=== PATIENT | male | born 1965 | race Caucasian/White ===

== ENCOUNTER 2018-12-15 12:03 | Emergency (ER) | payer OTHER, SELFPAY ==
[~2018-12-15 12:03] MED LIST: ACET1TAB12 PO; ATEN25TA PO; GLYB5TAB5 PO; METF-444 PO
[2018-12-15 12:34] LABS: BASOPHILS % (AUTO) 0.7 % (0.0-5.0); EOSINOPHILS % (AUTO) 0.8 % (0.0-8.0); HEMATOCRIT 39.7 % (42-54); MEAN CORPUSCULAR HEMOGLOBIN 33.9 pg (27.0-33.0); MEAN CORPUSCULAR HGB CONC 35.6 g/dL (32.0-36.0); MEAN CORPUSCULAR VOLUME 95.2 fL (79-99); MONOCYTES % (AUTO) 6.1 % (3.0-13.0); NEUTROPHILS % (AUTO) 60.4 % (40.0-77.0); NUCLEATED RED BLOOD CELLS 0.2 % (0.0-0.19); PLATELET COUNT (AUTO) 155 K/uL (130-400); RED BLOOD CELL COUNT(AUTO) 4.17 MIL/uL (4.50-6.20); RED CELL DISTRIBUTION WIDTH 12.6 % (11.0-15.5); WHITE BLOOD COUNT (AUTO) 6.5 K/uL (4.8-10.8)
[2018-12-15 12:44] LABS: POTASSIUM 3.7 mmol/L (3.5-5.1)
[2018-12-15 12:48] LABS: ALBUMIN 3.5 g/dL (3.5-5.0); BILIRUBIN,DIRECT 0.3 mg/dL (0.0-0.3); BILIRUBIN,TOTAL 1.7 mg/dL (0.2-1.0); TOTAL PROTEIN, SERUM 7.8 g/dL (6.0-8.3)
[2018-12-15 12:59] LABS: APPEARANCE,URINE Clear (CLEAR); BILIRUBIN,URINE Negative (NEGATIVE); COLOR,URINE Yellow (YELLOW); GLUCOSE, URINE (UA) >=1000 mg/dL (NEGATIVE); KETONES,URINE Negative (NEGATIVE); LEUKOCYTE ESTERASE ,URINE Negative (NEGATIVE); NITRATE,URINE Negative (NEGATIVE); OCCULT BLOOD,URINE Negative (NEGATIVE); PROTEIN,URINE Negative (NEGATIVE); UROBILINOGEN,URINE 0.2 mg/dL (0.2-1.0)
[2018-12-15 13:13] LABS: BACTERIA,URINE Rare /HPF (None Seen); RBC,URINE None Seen /HPF (0-1); SQUAMOUS EPITHELIAL CELL,UR Rare /HPF (0-2); WBC,URINE None Seen /HPF (0-1)
[2018-12-15] MEDS ORDERED: ONDANSETRON HCL 4 MG/2 ML VIAL ONE (13:30)
[2018-12-15] MEDS ORDERED: SODIUM CHLORIDE 0.9% 1000ML 1,000 ML IV ONE (13:31)
[2018-12-15] MEDS ORDERED: KETOROLAC TROMETHAMINE 30MG/ML ONE (13:31)
[2018-12-15] MEDS ORDERED: IOHEXOL-350 75 ML VIAL IV ONE (13:33)
== END 2018-12-15 15:50 | disposition home or self-care (01) ==
LOC: EDH 12:03
DX: K46.9 Unspecified abdominal hernia without obstruction or gangrene (principal); R10.12 Left upper quadrant pain; R10.32 Left lower quadrant pain; I10 Essential (primary) hypertension; E11.9 Type 2 diabetes mellitus without complications; Z90.49 Acquired absence of other specified parts of digestive tract
CPT/HCPCS: 36415; 74177; 80048; 80076; 81001; 83690; 85025; 96374; 96375; 99285; J1885; J2405; J7030; Q9967

== ENCOUNTER 2018-12-16 05:43 | Day surgery (SDC) | payer OTHER, SELFPAY ==
[~2018-12-16 05:43] MED LIST changes: +SODIUM CHLORIDE 0.9% 1000ML 1,000 ML IV ONE
[2018-12-16] MEDS ORDERED: PROPOFOL 10 MG/ML 20ML VIAL IV ONE (07:29)
[2018-12-16 07:40] VITALS: BP 98/70
[2018-12-16 07:50] VITALS: BP 121/75
[2018-12-16 08:05] VITALS: BP 124/86
[2018-12-16 08:38] VITALS: BP 95/55
[2018-12-16 08:43] VITALS: BP 99/63
== END 2018-12-16 08:15 | disposition home or self-care (01) ==
LOC: DAH 05:43 → ENDO 05:43
PROVIDERS: ATTEND Internal Medicine Gastroenterology
DX: R10.32 Left lower quadrant pain (principal); K43.2 Incisional hernia without obstruction or gangrene; K94.00 Colostomy complication, unspecified; I10 Essential (primary) hypertension; Z79.899 Other long term (current) drug therapy
CPT/HCPCS: 45378; A4606; J2704; J7030

== ENCOUNTER 2019-02-22 16:51 | Emergency (ER) | payer OTHER ==
[~2019-02-22 16:51] MED LIST changes: -SODIUM CHLORIDE 0.9% 1000ML 1,000 ML IV ONE
[2019-02-22] MEDS ORDERED: KETOROLAC TROMETHAMINE 15MG/ML ONE ×2 (17:23→20:48)
[2019-02-22] MEDS ORDERED: SODIUM CHLORIDE 0.9% 1000ML 1,000 ML IV ONE (17:23)
[2019-02-22] MEDS ORDERED: ONDANSETRON HCL 4 MG/2 ML VIAL ONE (17:23)
[2019-02-22 18:12] LABS: BASOPHILS % (AUTO) 0.7 % (0.0-5.0); EOSINOPHILS % (AUTO) 0.7 % (0.0-8.0); HEMATOCRIT 39.6 % (42-54); MEAN CORPUSCULAR HEMOGLOBIN 34.1 pg (27.0-33.0); MEAN CORPUSCULAR HGB CONC 35.7 g/dL (32.0-36.0); MEAN CORPUSCULAR VOLUME 95.5 fL (79-99); MONOCYTES % (AUTO) 7.2 % (3.0-13.0); NEUTROPHILS % (AUTO) 59.4 % (40.0-77.0); PLATELET COUNT (AUTO) 162 K/uL (130-400); RED BLOOD CELL COUNT(AUTO) 4.15 MIL/uL (4.50-6.20); RED CELL DISTRIBUTION WIDTH 12.4 % (11.0-15.5); WHITE BLOOD COUNT (AUTO) 5.4 K/uL (4.8-10.8)
[2019-02-22 18:23] LABS: INR 0.99 (0.85-1.15); PROTHROMBIN TIME 10.4 SEC (9.6-11.6)
[2019-02-22] MEDS ORDERED: IOHEXOL-350 75 ML VIAL IV ONE (18:23)
[2019-02-22] MEDS ORDERED: DIATR MEGLU/DIATRIZOATE SODIUM 30 ML BOTTLE ONE (18:23)
[2019-02-22 18:28] LABS: ALBUMIN 3.5 g/dL (3.5-5.0); BILIRUBIN,TOTAL 1.3 mg/dL (0.2-1.0); CREATININE 1.2 mg/dL (0.5-1.5); POTASSIUM 3.9 mmol/L (3.5-5.1); TOTAL PROTEIN, SERUM 7.9 g/dL (6.0-8.3)
[2019-02-22 18:36] LABS: APPEARANCE,URINE Clear (CLEAR); BILIRUBIN,URINE Negative (NEGATIVE); COLOR,URINE Yellow (YELLOW); GLUCOSE, URINE (UA) >=1000 mg/dL (NEGATIVE); KETONES,URINE Negative (NEGATIVE); LEUKOCYTE ESTERASE ,URINE Negative (NEGATIVE); NITRATE,URINE Negative (NEGATIVE); OCCULT BLOOD,URINE Negative (NEGATIVE); PROTEIN,URINE Negative (NEGATIVE); UROBILINOGEN,URINE 0.2 mg/dL (0.2-1.0)
[2019-03-20] MEDS ORDERED: ADVIL PO (09:49)
[2019-03-20] MEDS ORDERED: ACETAMINOPHEN PO (09:49)
[2019-03-24] MEDS ORDERED: ACET-66 PO (09:14)
[2019-03-24] MEDS ORDERED: IBUP200C5 PO (09:15)
[2019-03-30] MEDS ORDERED: ACET1TAB12 PO (06:11)
== END 2019-02-22 21:04 | disposition home or self-care (01) ==
LOC: EDH 16:51
DX: K46.9 Unspecified abdominal hernia without obstruction or gangrene (principal); E11.9 Type 2 diabetes mellitus without complications; I10 Essential (primary) hypertension; Z90.49 Acquired absence of other specified parts of digestive tract
CPT/HCPCS: 36415; 71045; 74177; 80053; 81003; 82550; 83690; 84484; 85025; 85610; 85730; 93005; 96374; 96375; 96376; 99285; J1885 ×2; J2405; J7030; Q9963; Q9967

== ENCOUNTER 2023-02-13 11:12 | Inpatient (IN) | payer BC, OTHER ==
[2023-02-13] VITALS (15 sets, daily range): BP systolic 99–136; BP diastolic 55–68; PULSE 89–104; RESP 14–20
[~2023-02-13] VITALS: Ht 182.9 cm; Wt 80.5 kg
[~2023-02-13 11:12] MED LIST changes: +ACET-66 PO; -ACET1TAB12 PO; -ATEN25TA PO; +ATOR10 PO; -GLYB5TAB5 PO; +IBUP200C5 PO; -METF-444 PO; +MUPI22OI2 TP
[2023-02-13 12:19] LABS: BASOPHILS # (AUTO) 0.07 K/uL (0.00-0.20); BASOPHILS % (AUTO) 0.4 % (0.0-5.0); EOSINOPHILS # (AUTO) 0.01 K/uL (0.00-0.70); EOSINOPHILS % (AUTO) 0.1 % (0.0-8.0); HEMATOCRIT 30.2 % (42-54); IMMATURE GRANULOCYTE ABSOLUTE 1.89 K/uL (0-1); LYMPHOCYTES # (AUTO) 1.1 K/uL (1.0-4.8); LYMPHOCYTES % (AUTO) 6.4 % (21.0-51.0); MEAN CORPUSCULAR HEMOGLOBIN 32.3 pg (27.0-33.0); MEAN CORPUSCULAR HGB CONC 36.1 g/dL (32.0-36.0); MEAN CORPUSCULAR VOLUME 89.6 fL (79-99); MONOCYTES # (AUTO) 1.1 K/uL (0.1-1.0); MONOCYTES % (AUTO) 6.2 % (3.0-13.0); NEUTROPHILS # (AUTO) 13.1 K/uL (1.8-7.7); NEUTROPHILS % (AUTO) 75.9 % (40.0-77.0); PLATELET COUNT (AUTO) 214 K/uL (130-400); RED BLOOD CELL COUNT(AUTO) 3.37 MIL/uL (4.50-6.20); WHITE BLOOD COUNT (AUTO) 17.3 K/uL (4.8-10.8)
[2023-02-13] MEDS ORDERED: VANCOMYCIN PROTOCOL PER PHARMACY IV SCH (12:30)
[2023-02-13] MEDS ORDERED: ONDANSETRON 4MG INJ IVP PRN (12:30)
[2023-02-13 12:32] LABS: INR 1.03 (0.85-1.15); PROTHROMBIN TIME 11.9 SEC (9.6-11.6)
[2023-02-13 12:33] LABS: PARTIAL THROMBOPLASTIN TIME 35.1 SEC (26.3-35.5)
[2023-02-13] MEDS: 0.9%NACL 1000ML 1,000 ML IV SCH ×2 (12:38→22:30)
[2023-02-13] MEDS: PANTOPRAZOLE 40 MG/VIAL IVP SCH (12:38)
[2023-02-13] MEDS: CEFEPIME HCL 2 GM VIAL IVPB SCH (12:38)
[2023-02-13 12:39] LABS: SARS-CoV-2, RNA, NAAT NEGATIVE SARS CoV-2 (NEGATIVE)
[2023-02-13 12:41] LABS: ALBUMIN 2.4 g/dL (3.5-5.0); CREATININE 1.3 mg/dL (0.5-1.5); POTASSIUM 3.7 mmol/L (3.5-5.1); TOTAL PROTEIN, SERUM 7.3 g/dL (6.0-8.3)
[2023-02-13 12:48] LABS: THYROID STIMULATING HORMONE 2.07 uIU/mL (0.36-3.74)
[2023-02-13] MEDS ORDERED: VANCOMYCIN 1.75 GM/250 ML BAG 250 ML IV ONE (13:00)
[2023-02-13] MEDS ORDERED: 0.9%NACL 1000ML 2,328 ML IV ONE (13:30)
[2023-02-13] MEDS: INSULIN HUMULIN R 100 UNIT/ML 3ML SQ SCH ×2 (13:57→19:30)
[2023-02-13] MEDS ORDERED: POTASSIUM CHLORIDE 20MEQ/100ML 100 ML IV PRN (14:30)
[2023-02-13] MEDS ORDERED: DIPH,PERTUSS(ACELL),TET VAC/PF 0.5 ML VIAL IM ONE (16:00)
[2023-02-13] MEDS ORDERED: INSULIN HUMULIN R 100 UNIT/ML 3ML SQ SCH (16:30)
[2023-02-13] MEDS: METRONIDAZOLE 500MG/100ML BAG 100 ML IVPB SCH ×2 (16:45→23:16)
[2023-02-13] MEDS ORDERED: MIDAZOLAM HCL 1 MG/ML 2ML VIAL ONE ×4 (20:55→22:08)
[2023-02-13] MEDS ORDERED: FENTANYL CITRATE PF 50 MCG/1 ML 2ML VIAL ONE ×2 (21:10→22:01)
[2023-02-13] MEDS ORDERED: BUPIVACAINE/PF 0.5% 30ML VIAL ONE (21:18)
[2023-02-13] MEDS ORDERED: LIDOCAINE HCL-MPF 2% 10ML AMP IJ ONE ×2 (21:20→21:43)
[2023-02-13] MEDS ORDERED: BUPIVACAINE/PF 0.5% 30ML VIAL INJ ONE (21:43)
[2023-02-14] VITALS (12 sets, daily range): BP systolic 108–139; BP diastolic 52–79; PULSE 94–130; RESP 18–20; TEMP 100.5; O2SAT 95–96
[2023-02-14] MEDS: CEFEPIME HCL 2 GM VIAL IVPB SCH ×2 (00:17→12:33)
[2023-02-14] MEDS: INSULIN HUMULIN R 100 UNIT/ML 3ML SQ SCH ×4 (00:29→20:38)
[2023-02-14] MEDS: HYDROMORPHONE 0.5 MG SYG (0.5MG/0.5ML) IVP PRN ×3 (01:33→16:27)
[2023-02-14] MEDS: 0.9%NACL 1000ML 1,000 ML IV SCH ×2 (02:52→17:37)
[2023-02-14] MEDS: VANCOMYCIN 1G/250ML KIT 250 ML IV SCH ×2 (05:04→17:37)
[2023-02-14] MEDS: ACETAMINOPHEN 500 MG TABLET PO PRN ×2 (05:05→14:41)
[2023-02-14 05:23] LABS: BASOPHILS # (AUTO) 0.09 K/uL (0.00-0.20); BASOPHILS % (AUTO) 0.5 % (0.0-5.0); EOSINOPHILS # (AUTO) 0.04 K/uL (0.00-0.70); EOSINOPHILS % (AUTO) 0.2 % (0.0-8.0); HEMATOCRIT 28.5 % (42-54); IMMATURE GRANULOCYTE ABSOLUTE 2.98 K/uL (0-1); LYMPHOCYTES # (AUTO) 1.7 K/uL (1.0-4.8); LYMPHOCYTES % (AUTO) 8.7 % (21.0-51.0); MEAN CORPUSCULAR HEMOGLOBIN 32.2 pg (27.0-33.0); MEAN CORPUSCULAR HGB CONC 34.4 g/dL (32.0-36.0); MEAN CORPUSCULAR VOLUME 93.8 fL (79-99); MONOCYTES # (AUTO) 1.4 K/uL (0.1-1.0); MONOCYTES % (AUTO) 7.3 % (3.0-13.0); NEUTROPHILS # (AUTO) 13.2 K/uL (1.8-7.7); PLATELET COUNT (AUTO) 238 K/uL (130-400); RED BLOOD CELL COUNT(AUTO) 3.04 MIL/uL (4.50-6.20); RED CELL DISTRIBUTION WIDTH 12.5 % (11.0-15.5); WHITE BLOOD COUNT (AUTO) 19.4 K/uL (4.8-10.8)
[2023-02-14 05:50] LABS: ALBUMIN 1.9 g/dL (3.5-5.0); BILIRUBIN,TOTAL 0.7 mg/dL (0.2-1.0); MAGNESIUM 1.9 mg/dL (1.80-2.40); POTASSIUM 3.8 mmol/L (3.5-5.1); TOTAL PROTEIN, SERUM 6.5 g/dL (6.0-8.3)
[2023-02-14] MEDS: METRONIDAZOLE 500MG/100ML BAG 100 ML IVPB SCH ×3 (06:16→21:08)
[2023-02-14] MEDS: PANTOPRAZOLE 40 MG/VIAL IVP SCH (12:33)
[2023-02-14] MEDS: HYDROCODONE/ACETAMINOPHEN 10/325 MG TAB PO PRN (14:40)
[2023-02-15] MEDS: CEFEPIME HCL 2 GM VIAL IVPB SCH ×2 (00:45→13:24)
[2023-02-15] MEDS: HYDROCODONE/ACETAMINOPHEN 10/325 MG TAB PO PRN ×3 (02:37→18:08)
[2023-02-15 04:00] VITALS: BP 132/68; PULSE 99; RESP 20
[2023-02-15] MEDS: 0.9%NACL 1000ML 1,000 ML IV SCH ×2 (04:30→14:30)
[2023-02-15] MEDS: METRONIDAZOLE 500MG/100ML BAG 100 ML IVPB SCH ×3 (05:21→21:02)
[2023-02-15] MEDS: HYDROCODONE/ACETAMINOPHEN 5/325 MG TAB PO PRN (06:07)
[2023-02-15] MEDS: VANCOMYCIN 1G/250ML KIT 250 ML IV SCH ×2 (06:28→18:51)
[2023-02-15] MEDS: INSULIN HUMULIN R 100 UNIT/ML 3ML SQ SCH ×4 (06:43→21:02)
[2023-02-15 08:00] VITALS: BP 126/73; PULSE 96; RESP 20; O2SAT 98
[2023-02-15 12:00] VITALS: BP 145/85; PULSE 95; RESP 18
[2023-02-15] MEDS: PANTOPRAZOLE 40 MG/VIAL IVP SCH (13:24)
[2023-02-15 16:00] VITALS: BP 151/92; PULSE 114; RESP 18
[2023-02-15 20:00] VITALS: BP 148/82; PULSE 114; RESP 20; O2SAT 98
[2023-02-15] MEDS: HYDROMORPHONE 0.5 MG SYG (0.5MG/0.5ML) IVP PRN (21:03)
[2023-02-15 23:48] VITALS: BP_SYST 85; PULSE 101; RESP 18
[2023-02-16] VITALS (28 sets, daily range): BP systolic 119–149; BP diastolic 66–86; PULSE 70–108; RESP 15–19; O2SAT 98
[2023-02-16] MEDS: 0.9%NACL 1000ML 1,000 ML IV SCH ×3 (00:30→20:30)
[2023-02-16] MEDS: CEFEPIME HCL 2 GM VIAL IVPB SCH ×3 (01:38→23:36)
[2023-02-16 04:19] LABS: BASOPHILS # (AUTO) 0.06 K/uL (0.00-0.20); BASOPHILS % (AUTO) 0.4 % (0.0-5.0); EOSINOPHILS # (AUTO) 0.14 K/uL (0.00-0.70); HEMATOCRIT 26.5 % (42-54); IMMATURE GRANULOCYTE ABSOLUTE 0.15 K/uL (0-1); LYMPHOCYTES # (AUTO) 1.8 K/uL (1.0-4.8); LYMPHOCYTES % (AUTO) 13.5 % (21.0-51.0); MEAN CORPUSCULAR HEMOGLOBIN 31.6 pg (27.0-33.0); MONOCYTES # (AUTO) 1.1 K/uL (0.1-1.0); MONOCYTES % (AUTO) 7.9 % (3.0-13.0); NEUTROPHILS # (AUTO) 10.3 K/uL (1.8-7.7); NEUTROPHILS % (AUTO) 76.1 % (40.0-77.0); PLATELET COUNT (AUTO) 267 K/uL (130-400); RED BLOOD CELL COUNT(AUTO) 2.85 MIL/uL (4.50-6.20); RED CELL DISTRIBUTION WIDTH 12.4 % (11.0-15.5); WHITE BLOOD COUNT (AUTO) 13.6 K/uL (4.8-10.8)
[2023-02-16 04:46] LABS: CREATININE 1.1 mg/dL (0.5-1.5); MAGNESIUM 1.7 mg/dL (1.80-2.40); PHOSPHORUS 2.1 mg/dL (2.5-4.9); POTASSIUM 3.5 mmol/L (3.5-5.1)
[2023-02-16] MEDS: METRONIDAZOLE 500MG/100ML BAG 100 ML IVPB SCH ×3 (05:44→20:26)
[2023-02-16] MEDS: VANCOMYCIN 1G/250ML KIT 250 ML IV SCH ×2 (05:44→16:48)
[2023-02-16] MEDS: INSULIN HUMULIN R 100 UNIT/ML 3ML SQ SCH ×4 (06:36→21:12)
[2023-02-16] MEDS: HYDROMORPHONE 0.5 MG SYG (0.5MG/0.5ML) IVP PRN (07:44)
[2023-02-16] MEDS ORDERED: MORPHINE 2 MG SYG IVP PRN (10:00)
[2023-02-16] MEDS ORDERED: LIDOCAINE HCL 1% 20 ML VIAL ONE (10:11)
[2023-02-16] MEDS ORDERED: BUPIVACAINE/PF 0.25% 30ML VIAL IJ ONE ×2 (10:11→10:34)
[2023-02-16] MEDS ORDERED: MIDAZOLAM HCL 1 MG/ML 2ML VIAL ONE (10:13)
[2023-02-16] MEDS ORDERED: PROPOFOL 10 MG/ML 20ML VIAL IV ONE (10:13)
[2023-02-16] MEDS ORDERED: FENTANYL CITRATE PF 50 MCG/1 ML 2ML VIAL ONE (10:13)
[2023-02-16] MEDS ORDERED: PROPOFOL 1000 MG/100 ML 100 ML IV ONE (10:14)
[2023-02-16] MEDS ORDERED: KETAMINE 50MG/ML SYRINGE 50 MG/ML DISP.SYRIN ONE (10:15)
[2023-02-16] MEDS ORDERED: LIDOCAINE HCL 1% 20 ML VIAL INJ ONE (10:34)
[2023-02-16] MEDS: PANTOPRAZOLE 40 MG/VIAL IVP SCH (13:13)
[2023-02-16] MEDS: HYDROMORPHONE 1 MG INJ IVP PRN ×2 (13:15→16:49)
[2023-02-16] MEDS ORDERED: KETOROLAC 15MG/ML VIAL (15MG/ML) IM PRN (14:00)
[2023-02-16] MEDS: KETOROLAC 15MG/ML VIAL (15MG/ML) IV PRN ×2 (15:26→23:43)
[2023-02-16] MEDS: HYDROCODONE/ACETAMINOPHEN 5/325 MG TAB PO PRN (20:35)
[2023-02-17] VITALS (8 sets, daily range): BP systolic 109–150; BP diastolic 63–80; PULSE 69–109; RESP 16–20; O2SAT 96
[2023-02-17 05:51] LABS: BASOPHILS # (AUTO) 0.07 K/uL (0.00-0.20); BASOPHILS % (AUTO) 0.6 % (0.0-5.0); EOSINOPHILS # (AUTO) 0.15 K/uL (0.00-0.70); EOSINOPHILS % (AUTO) 1.3 % (0.0-8.0); HEMATOCRIT 22.4 % (42-54); IMMATURE GRANULOCYTE ABSOLUTE 0.19 K/uL (0-1); LYMPHOCYTES # (AUTO) 1.3 K/uL (1.0-4.8); LYMPHOCYTES % (AUTO) 11.4 % (21.0-51.0); MEAN CORPUSCULAR HEMOGLOBIN 32.1 pg (27.0-33.0); MEAN CORPUSCULAR HGB CONC 33.9 g/dL (32.0-36.0); MEAN CORPUSCULAR VOLUME 94.5 fL (79-99); MONOCYTES # (AUTO) 0.8 K/uL (0.1-1.0); MONOCYTES % (AUTO) 6.8 % (3.0-13.0); NEUTROPHILS # (AUTO) 9.2 K/uL (1.8-7.7); NEUTROPHILS % (AUTO) 78.3 % (40.0-77.0); NUCLEATED RED BLOOD CELLS 0.2 % (0.0-0.19); PLATELET COUNT (AUTO) 279 K/uL (130-400); RED BLOOD CELL COUNT(AUTO) 2.37 MIL/uL (4.50-6.20); RED CELL DISTRIBUTION WIDTH 12.7 % (11.0-15.5); WHITE BLOOD COUNT (AUTO) 11.8 K/uL (4.8-10.8)
[2023-02-17] MEDS: METRONIDAZOLE 500MG/100ML BAG 100 ML IVPB SCH ×3 (05:53→20:25)
[2023-02-17 06:04] LABS: POTASSIUM 3.7 mmol/L (3.5-5.1); VANCOMYCIN TROUGH 14.1 UG/ML (10.0-20.0)
[2023-02-17] MEDS: VANCOMYCIN 1G/250ML KIT 250 ML IV SCH ×2 (06:15→17:18)
[2023-02-17] MEDS: INSULIN HUMULIN R 100 UNIT/ML 3ML SQ SCH ×4 (06:28→20:36)
[2023-02-17] MEDS: 0.9%NACL 1000ML 1,000 ML IV SCH ×2 (06:30→17:26)
[2023-02-17] MEDS: HYDROCODONE/ACETAMINOPHEN 5/325 MG TAB PO PRN ×3 (10:52→23:19)
[2023-02-17] MEDS: CEFEPIME HCL 2 GM VIAL IVPB SCH ×2 (12:31→23:18)
[2023-02-17] MEDS: PANTOPRAZOLE 40 MG/VIAL IVP SCH (12:31)
[2023-02-17] MEDS: INSULIN GLARGINE 100 UNITS/ML 10 ML VIAL SQ SCH (20:53)
[2023-02-18] VITALS (8 sets, daily range): BP systolic 126–153; BP diastolic 74–89; PULSE 95–111; RESP 18–19; O2SAT 95–99
[2023-02-18] MEDS: 0.9%NACL 1000ML 1,000 ML IV SCH (02:30)
[2023-02-18 04:34] LABS: CREATININE 1.1 mg/dL (0.5-1.5); POTASSIUM 3.6 mmol/L (3.5-5.1)
[2023-02-18 04:56] LABS: BASOPHILS # (AUTO) 0.04 K/uL (0.00-0.20); BASOPHILS % (AUTO) 0.4 % (0.0-5.0); EOSINOPHILS # (AUTO) 0.14 K/uL (0.00-0.70); EOSINOPHILS % (AUTO) 1.6 % (0.0-8.0); HEMATOCRIT 21.1 % (42-54); IMMATURE GRANULOCYTE ABSOLUTE 0.15 K/uL (0-1); LYMPHOCYTES # (AUTO) 1.6 K/uL (1.0-4.8); LYMPHOCYTES % (AUTO) 17.4 % (21.0-51.0); MEAN CORPUSCULAR HEMOGLOBIN 32.7 pg (27.0-33.0); MEAN CORPUSCULAR HGB CONC 34.6 g/dL (32.0-36.0); MEAN CORPUSCULAR VOLUME 94.6 fL (79-99); MONOCYTES # (AUTO) 0.7 K/uL (0.1-1.0); MONOCYTES % (AUTO) 7.9 % (3.0-13.0); NEUTROPHILS # (AUTO) 6.4 K/uL (1.8-7.7); PLATELET COUNT (AUTO) 287 K/uL (130-400); RED BLOOD CELL COUNT(AUTO) 2.23 MIL/uL (4.50-6.20); RED CELL DISTRIBUTION WIDTH 12.8 % (11.0-15.5)
[2023-02-18] MEDS: METRONIDAZOLE 500MG/100ML BAG 100 ML IVPB SCH ×3 (05:39→22:58)
[2023-02-18] MEDS: HYDROCODONE/ACETAMINOPHEN 5/325 MG TAB PO PRN ×2 (05:39→15:24)
[2023-02-18] MEDS: VANCOMYCIN 1G/250ML KIT 250 ML IV SCH ×2 (05:40→18:21)
[2023-02-18] MEDS: INSULIN HUMULIN R 100 UNIT/ML 3ML SQ SCH ×4 (06:49→20:49)
[2023-02-18] MEDS: KETOROLAC 15MG/ML VIAL (15MG/ML) IV PRN (10:33)
[2023-02-18] MEDS: PANTOPRAZOLE 40 MG/VIAL IVP SCH (11:50)
[2023-02-18] MEDS: CEFEPIME HCL 2 GM VIAL IVPB SCH (11:50)
[2023-02-18] MEDS ORDERED: IOHEXOL-350 50ML VIAL IV ONE (18:49)
[2023-02-18] MEDS ORDERED: IOHEXOL 350 MG/ML 100ML INFUS..BTL IV ONE (18:49)
[2023-02-18] MEDS: INSULIN GLARGINE 100 UNITS/ML 10 ML VIAL SQ SCH (20:50)
[2023-02-19] VITALS (8 sets, daily range): BP systolic 133–155; BP diastolic 65–94; PULSE 90–120; RESP 16–20; O2SAT 96–100
[2023-02-19] MEDS: CEFEPIME HCL 2 GM VIAL IVPB SCH ×2 (00:57→12:11)
[2023-02-19] MEDS: METRONIDAZOLE 500MG/100ML BAG 100 ML IVPB SCH ×3 (06:14→21:55)
[2023-02-19] MEDS: VANCOMYCIN 1G/250ML KIT 250 ML IV SCH ×3 (06:14→22:01)
[2023-02-19] MEDS: INSULIN HUMULIN R 100 UNIT/ML 3ML SQ SCH ×4 (06:26→21:53)
[2023-02-19] MEDS: HYDROMORPHONE 1 MG INJ IVP PRN ×3 (09:16→17:14)
[2023-02-19] MEDS: HYDROCODONE/ACETAMINOPHEN 5/325 MG TAB PO PRN (12:12)
[2023-02-19] MEDS: PANTOPRAZOLE 40 MG/VIAL IVP SCH (12:30)
[2023-02-19 19:41] LABS: INR 1.11 (0.85-1.15); PROTHROMBIN TIME 12.8 SEC (9.6-11.6)
[2023-02-19 19:42] LABS: PARTIAL THROMBOPLASTIN TIME 33.5 SEC (26.3-35.5)
[2023-02-19] MEDS: INSULIN GLARGINE 100 UNITS/ML 10 ML VIAL SQ SCH (21:54)
[2023-02-20 00:07] VITALS: BP 143/86; PULSE 102; RESP 18
[2023-02-20] MEDS: CEFEPIME HCL 2 GM VIAL IVPB SCH ×2 (00:54→12:29)
[2023-02-20] MEDS: HYDROMORPHONE 1 MG INJ IVP PRN (01:48)
[2023-02-20 04:17] VITALS: BP 129/76; PULSE 74; RESP 18
[2023-02-20] MEDS: METRONIDAZOLE 500MG/100ML BAG 100 ML IVPB SCH (06:08)
[2023-02-20] MEDS: INSULIN HUMULIN R 100 UNIT/ML 3ML SQ SCH ×2 (06:09→12:33)
[2023-02-20 06:26] LABS: INR 1.12 (0.85-1.15); PROTHROMBIN TIME 12.9 SEC (9.6-11.6)
[2023-02-20 06:27] LABS: PARTIAL THROMBOPLASTIN TIME 33.1 SEC (26.3-35.5)
[2023-02-20 08:00] VITALS: BP 142/82; PULSE 94; RESP 16; O2SAT 98
[2023-02-20] MEDS: KETOROLAC 15MG/ML VIAL (15MG/ML) IV PRN (08:18)
[2023-02-20] MEDS: VANCOMYCIN 1G/250ML KIT 250 ML IV SCH (09:39)
[2023-02-20] MEDS ORDERED: LACTULOSE 20 GM/30 ML UDCUP PO ONE (10:00)
[2023-02-20 12:00] VITALS: BP 158/104; PULSE 98; RESP 16
[2023-02-20] MEDS: PANTOPRAZOLE 40 MG/VIAL IVP SCH (12:30)
[2023-02-20] MEDS ORDERED: VANCOMYCIN 1G/250ML KIT 250 ML IV SCH (13:00)
== END 2023-02-20 16:17 | DRG 853 ==
LOC: EDH 11:12 → EDHIP 11:13 → UNDOADMIN 11:44 → EDHIP 11:44 → 4AH 22:03 → EDHIP 22:03
PROVIDERS: ADMIT Internal Medicine; ATTEND Internal Medicine
PROC: 0Y6M0ZC Detachment at Right Foot, Partial 3rd Ray, Open Approach (ICD-10-PCS; 2023-02-13)
PROC: 0Y6M0ZD Detachment at Right Foot, Partial 4th Ray, Open Approach (ICD-10-PCS; 2023-02-13)
PROC: 0Y6M0ZF Detachment at Right Foot, Partial 5th Ray, Open Approach (ICD-10-PCS; 2023-02-13)
PROC: 0Y6M0Z9 Detachment at Right Foot, Partial 1st Ray, Open Approach (ICD-10-PCS; principal; 2023-02-13 21:07)
PROC: 0Y6M0ZB Detachment at Right Foot, Partial 2nd Ray, Open Approach (ICD-10-PCS; 2023-02-13 21:07)
PROC: 0Y6M0Z0 Detachment at Right Foot, Complete, Open Approach (ICD-10-PCS; 2023-02-16)
PROC: 02HV33Z Insertion of Infusion Device into Superior Vena Cava, Percutaneous Approach (ICD-10-PCS; 2023-02-19)
DX: A41.9 Sepsis, unspecified organism (principal); A48.0 Gas gangrene; L03.115 Cellulitis of right lower limb; E87.1 Hypo-osmolality and hyponatremia; E11.52 Type 2 diabetes mellitus with diabetic peripheral angiopathy with gangrene; M86.171 Other acute osteomyelitis, right ankle and foot; D64.9 Anemia, unspecified; E87.6 Hypokalemia; E11.621 Type 2 diabetes mellitus with foot ulcer; L97.521 Non-pressure chronic ulcer of other part of left foot limited to breakdown of skin; E11.42 Type 2 diabetes mellitus with diabetic polyneuropathy; E11.69 Type 2 diabetes mellitus with other specified complication; Z20.822 Contact with and (suspected) exposure to COVID-19; E11.622 Type 2 diabetes mellitus with other skin ulcer; E11.65 Type 2 diabetes mellitus with hyperglycemia; E66.9 Obesity, unspecified; E78.5 Hyperlipidemia, unspecified; G89.18 Other acute postprocedural pain; I10 Essential (primary) hypertension; Z83.3 Family history of diabetes mellitus; Z86.73 Personal history of transient ischemic attack (TIA), and cerebral infarction without residual deficits; Z91.199 Patient's noncompliance with other medical treatment and regimen due to unspecified reason; Z93.3 Colostomy status; Z79.84 Long term (current) use of oral hypoglycemic drugs; Z68.24 Body mass index [BMI] 24.0-24.9, adult
CPT/HCPCS: 36415; 36569; 71045; 73630; 73706; 73718; 80048; 80053; 80202; 82010; 82550; 82948; 83605; 83735; 84100; 84145; 84443; 85025; 85610; 85651; 85730; 86140; 87040; 87070; 87076; 87077; 87186; 87205; 87635; 88304; 88305; 88311; 90715; 93005; 93926; 97039; C1894; C9113; G0378; J0692; J1170; J1815; J1885; J2250; J2704; J3010; J3370; J3480; J3490; J7030; Q9967; A4649; A6446; C1729

== ENCOUNTER 2023-09-26 03:11 | Emergency (ER) | payer BC ==
[~2023-09-26 03:11] MED LIST changes: -ACET-66 PO; +AEC81 PO; -ATOR10 PO; +ATOR40TA69 PO; +DOXY100T2 PO; +GLIM4TAB36 PO; +HONE44PA TP; -IBUP200C5 PO; +INSU100I24 SQ; +MECL-302 PO; +METF-444 PO; +METO25 PO; -MUPI22OI2 TP; +NITR0.4T50 SL; +Nitroglycerin 0.4MG Sl Tab SL; +OMEP40CA21 PO; +SULF1TAB89 PO; +TICA90TA PO; +[UNRECOGNIZED DRUG - CODE] PO
[2023-09-26 03:56] LABS: BASOPHILS # (AUTO) 0.05 K/uL (0.00-0.20); BASOPHILS % (AUTO) 0.7 % (0.0-5.0); EOSINOPHILS # (AUTO) 0.11 K/uL (0.00-0.70); EOSINOPHILS % (AUTO) 1.6 % (0.0-8.0); HEMATOCRIT 34.1 % (42-54); IMMATURE GRANULOCYTE ABSOLUTE 0.03 K/uL (0-1); LYMPHOCYTES # (AUTO) 1.8 K/uL (1.0-4.8); LYMPHOCYTES % (AUTO) 25.9 % (21.0-51.0); MEAN CORPUSCULAR HEMOGLOBIN 31.8 pg (27.0-33.0); MEAN CORPUSCULAR HGB CONC 35.5 g/dL (32.0-36.0); MEAN CORPUSCULAR VOLUME 89.7 fL (79-99); MONOCYTES # (AUTO) 0.6 K/uL (0.1-1.0); MONOCYTES % (AUTO) 8.8 % (3.0-13.0); NEUTROPHILS # (AUTO) 4.2 K/uL (1.8-7.7); NEUTROPHILS % (AUTO) 62.6 % (40.0-77.0); PLATELET COUNT (AUTO) 215 K/uL (130-400); RED CELL DISTRIBUTION WIDTH 11.9 % (11.0-15.5); WHITE BLOOD COUNT (AUTO) 6.8 K/uL (4.8-10.8)
[2023-09-26 04:00] LABS: CARBON DIOXIDE 25 mmol/L (21-32); CHLORIDE 107 mmol/L (101-111); CREATININE 1.1 mg/dL (0.5-1.3); GLOMERULAR FILTR. RATE CALC 79 mL/min (>90); GLUCOSE,RANDOM 102 mg/dL (70-105); POTASSIUM 3.8 mmol/L (3.5-5.1); SODIUM SERUM 142 mmol/L (136-145); UREA NITROGEN, BLOOD 17 mg/dL (7-18)
[2023-09-26 04:02] LABS: INR 0.97 (0.85-1.15); PROTHROMBIN TIME 11.5 SEC (9.6-11.6)
[2023-09-26 04:03] LABS: ALCOHOL, BLOOD 38 mg/dL (0-10); PARTIAL THROMBOPLASTIN TIME 26.2 SEC (26.3-35.5)
[2023-09-26 04:16] LABS: ACETAMINOPHEN < 1 mcg/mL (10-29); SALICYLATE < 2.8 mg/dL (2.8-20.0)
[2023-09-26] MEDS: 0.9% NACL 500ML IV.SOLN 500 ML IV ONE ×2 (09:10→11:31)
[2023-09-26] MEDS: METOPROLOL TARTRATE 25 MG TAB PO ONE (09:11)
[2023-09-26 10:47] LABS: APPEARANCE,URINE CLEAR (CLEAR); BILIRUBIN,URINE NEGATIVE (NEGATIVE); COLOR,URINE LIGHT-YELLOW (YELLOW); GLUCOSE, URINE (UA) 150 mg/dL (NEGATIVE); KETONES,URINE NEGATIVE (NEGATIVE); LEUKOCYTE ESTERASE ,URINE NEGATIVE Leu/uL (NEGATIVE); NITRATE,URINE NEGATIVE (NEGATIVE); PH,URINE 5.5 (5.0-8.0); PROTEIN,URINE 30 mg/dL (NEGATIVE); UROBILINOGEN,URINE 0.2 mg/dL (0.2-1.0)
[2023-09-26 10:52] LABS: AMPHET/METH SCREEN,URINE NEGATIVE (NEGATIVE); BARBITURATE SCREEN, URINE POSITIVE (NEGATIVE); BENZODIAZEPINES SCREEN,URINE NEGATIVE (NEGATIVE); CANNABINOID SCREEN,URINE NEGATIVE (NEGATIVE); COCAINE SCREEN,URINE NEGATIVE (NEGATIVE); OPIATE SCREEN,URINE NEGATIVE (NEGATIVE); PHENCYCLIDINE SCREEN,URINE NEGATIVE (NEGATIVE)
[2023-09-26 11:08] LABS: ADD UA MICROSCOPIC YES
[2023-09-26 11:24] LABS: RBC,URINE 0-1 /HPF (0-1)
[2023-09-26] MEDS: LORAZEPAM 1 MG TABLET PO ONE (11:31)
[2023-09-26 13:55] VITALS: BP 151/90; PULSE 84; RESP 18; O2SAT 95
== END 2023-09-26 14:16 | disposition home or self-care (01) ==
LOC: EDH 03:11
DX: S51.812A Laceration without foreign body of left forearm, initial encounter (principal); R45.851 Suicidal ideations; E10.9 Type 1 diabetes mellitus without complications; Z79.84 Long term (current) use of oral hypoglycemic drugs; Z79.899 Other long term (current) drug therapy; Z98.890 Other specified postprocedural states; X78.1XXA Intentional self-harm by knife, initial encounter; Y93.89 Activity, other specified; Y92.89 Other specified places as the place of occurrence of the external cause; Y99.8 Other external cause status
CPT/HCPCS: 99284; 96360; 80048; 80305; 85025; 85610; 85730; 36415; 73090; 93005; 81001; G0481; J7040 ×2

== ENCOUNTER 2023-11-08 20:23 | Emergency (ER) | payer BC ==
[~2023-11-08] VITALS: Ht 182.9 cm; Wt 83.0 kg
[2023-11-08 20:48] LABS: BASOPHILS # (AUTO) 0.02 K/uL (0.00-0.20); BASOPHILS % (AUTO) 0.2 % (0.0-5.0); EOSINOPHILS # (AUTO) 0.05 K/uL (0.00-0.70); EOSINOPHILS % (AUTO) 0.5 % (0.0-8.0); IMMATURE GRANULOCYTE ABSOLUTE 0.04 K/uL (0-1); LYMPHOCYTES # (AUTO) 1.4 K/uL (1.0-4.8); LYMPHOCYTES % (AUTO) 13.1 % (21.0-51.0); MEAN CORPUSCULAR HGB CONC 36.5 g/dL (32.0-36.0); MEAN CORPUSCULAR VOLUME 87.8 fL (79-99); MONOCYTES # (AUTO) 0.8 K/uL (0.1-1.0); MONOCYTES % (AUTO) 7.4 % (3.0-13.0); NEUTROPHILS # (AUTO) 8.3 K/uL (1.8-7.7); NEUTROPHILS % (AUTO) 78.4 % (40.0-77.0); PLATELET COUNT (AUTO) 174 K/uL (130-400); RED BLOOD CELL COUNT(AUTO) 3.53 MIL/uL (4.50-6.20); RED CELL DISTRIBUTION WIDTH 12.2 % (11.0-15.5); WHITE BLOOD COUNT (AUTO) 10.6 K/uL (4.8-10.8)
[2023-11-08 20:54] LABS: CREATININE 2.2 mg/dL (0.5-1.3); POTASSIUM 4.5 mmol/L (3.5-5.1)
[2023-11-08 20:57] LABS: INR 1.11 (0.85-1.15); PROTHROMBIN TIME 11.9 SEC (9.6-11.6)
[2023-11-08 20:58] LABS: PARTIAL THROMBOPLASTIN TIME 27.4 SEC (26.3-35.5)
[2023-11-08 20:59] LABS: MAGNESIUM 1.4 mg/dL (1.80-2.40)
[2023-11-08] MEDS: LACTATED RINGERS 1000ML 1,000 ML IV ONE ×2 (21:05)
[2023-11-08 21:11] LABS: B-TYPE NATRIURETIC PEPTIDE 31 pg/mL (0-100)
[2023-11-08 22:59] VITALS: BP 110/68; PULSE 91; RESP 18; O2SAT 0
[2023-11-08] MEDS: MAGNESIUM CHLORIDE 64 MG TABLET.SA PO SCH (23:27)
[2023-11-08] MEDS: MAGNESIUM OXIDE 400 MG TABLET PO ONE ×2 (23:27→23:36)
== END 2023-11-08 23:36 | disposition home or self-care (01) ==
LOC: EDH 20:23
DX: E86.0 Dehydration (principal); E83.42 Hypomagnesemia; E11.9 Type 2 diabetes mellitus without complications; Z79.02 Long term (current) use of antithrombotics/antiplatelets; Z79.82 Long term (current) use of aspirin; Z79.84 Long term (current) use of oral hypoglycemic drugs; Z79.899 Other long term (current) drug therapy; Z86.73 Personal history of transient ischemic attack (TIA), and cerebral infarction without residual deficits
CPT/HCPCS: 99283; 96360; 82550; 83735; 80048; 83880; 85025; 85610; 85730; 36415; J7120; 96361

== ENCOUNTER 2023-11-14 13:39 | Emergency (ER) | payer BC ==
[~2023-11-14] VITALS: Ht 182.9 cm; Wt 84.4 kg
[~2023-11-14 13:39] MED LIST changes: -DOXY100T2 PO; -HONE44PA TP; -MECL-302 PO
[2023-11-14 13:51] VITALS: BP 106/60; PULSE 103; RESP 17; O2SAT 98
[2023-11-14 14:11] LABS: BASOPHILS # (AUTO) 0.04 K/uL (0.00-0.20); BASOPHILS % (AUTO) 0.6 % (0.0-5.0); EOSINOPHILS # (AUTO) 0.18 K/uL (0.00-0.70); EOSINOPHILS % (AUTO) 2.6 % (0.0-8.0); IMMATURE GRANULOCYTE ABSOLUTE 0.03 K/uL (0-1); LYMPHOCYTES # (AUTO) 1.6 K/uL (1.0-4.8); LYMPHOCYTES % (AUTO) 23.4 % (21.0-51.0); MEAN CORPUSCULAR HEMOGLOBIN 32.1 pg (27.0-33.0); MEAN CORPUSCULAR HGB CONC 35.7 g/dL (32.0-36.0); MEAN CORPUSCULAR VOLUME 89.7 fL (79-99); MONOCYTES # (AUTO) 0.5 K/uL (0.1-1.0); MONOCYTES % (AUTO) 7.8 % (3.0-13.0); NEUTROPHILS # (AUTO) 4.5 K/uL (1.8-7.7); NEUTROPHILS % (AUTO) 65.2 % (40.0-77.0); PLATELET COUNT (AUTO) 200 K/uL (130-400); RED BLOOD CELL COUNT(AUTO) 3.12 MIL/uL (4.50-6.20); RED CELL DISTRIBUTION WIDTH 12.2 % (11.0-15.5); WHITE BLOOD COUNT (AUTO) 6.9 K/uL (4.8-10.8)
[2023-11-14 14:20] LABS: POTASSIUM 3.7 mmol/L (3.5-5.1)
[2023-11-14 14:26] LABS: BILIRUBIN,TOTAL 0.6 mg/dL (0.2-1.0); TOTAL PROTEIN, SERUM 7.2 g/dL (6.0-8.3)
== END 2023-11-14 15:53 | disposition left against medical advice (07) ==
LOC: EDH 13:39
DX: R53.83 Other fatigue (principal); Z53.21 Procedure and treatment not carried out due to patient leaving prior to being seen by health care provider
CPT/HCPCS: 36415; 80053; 85025; 93005

== ENCOUNTER 2023-11-25 12:12 | Emergency (ER) | payer BC ==
[~2023-11-25] VITALS: Ht 182.9 cm; Wt 85.3 kg
[2023-11-25 12:14] VITALS: BP 114/66; PULSE 94; RESP 16
== END 2023-11-25 16:08 | disposition left against medical advice (07) ==
LOC: EDH 12:12
DX: R42 Dizziness and giddiness (principal); R53.1 Weakness; E11.9 Type 2 diabetes mellitus without complications; E78.00 Pure hypercholesterolemia, unspecified; I10 Essential (primary) hypertension; Z79.82 Long term (current) use of aspirin; Z79.899 Other long term (current) drug therapy; Z98.890 Other specified postprocedural states
CPT/HCPCS: 93005

== ENCOUNTER 2024-04-08 16:15 | Emergency (ER) | payer BC ==
[~2024-04-08] VITALS: Ht 182.9 cm; Wt 83.9 kg
--- NOTE | 2024-04-08 17:43 | ERN ---
ED Note History of Present Illness Stated Complaint: RT LEG SWOLLEN ,EXTREMELY RED Chief Complaint: Lower Extremity Pain/Injury Time Seen by MD: 16:50 Dictation: PATIENT IS A 59-YEAR-OLD MALE COMING IN TODAY WITH ERYTHEMA SWELLING TENDERNESS TO THE RIGHT CALF AND LEG ONSET FOR 2-3 DAYS. ADDITIONALLY HAS FOUL-SMELLING RIGHT FOOT STUMP STATUS POST AN AMPUTATION SEVERAL MONTHS AGO BY OF PODIATRY. NO FEVER NO CHILLS IS UNSURE ABOUT IT WHAT HIS BLOOD SUGAR RUNNING. HAS NOT BEEN TO SEE HIS PRIMARY CARE DOCTOR. Allergies: Coded Allergies: No Known Allergies (Verified Allergy, Severe, 02/17/15) Home Meds Active Scripts Metformin HCl (Metformin HCl) 1,000 Mg Tablet, 1000 MG PO BID, #60 TAB HALF A TABLET TWICE A DAY WITH MEALS Prov:DILLON MARTINEZ NP 04/08/24 Insulin NPL/Insulin Lispro (Humalog Mix 75/25) 100 Unit/Ml (75-25) Inj, 10 UNITS SQ DAILY, #1 VIAL 0 Refills Prov:DILLON MARTINEZ NP 04/08/24 Clindamycin HCl (Clindamycin HCl) 300 Mg Capsule, 1 CAP PO QID for 10 Days, #40 CAP 0 Refills Prov:DILLON MARTINEZ NP 04/08/24 Aspirin (ASPIRIN 81 MG ECTAB) 81 Mg Ectab, 81 MG PO DAILY for 30 Days, #30 TAB.EC 2 Refills Prov:JANNET BLAKELY MD 05/30/23 Nitroglycerin (Nitroglycerin) 0.4 Mg Tab.subl, 0.4 MG SL [id number] PRN for chest pain, #30 TAB.SL 2 Refills Prov:JANNET BLAKELY MD 05/30/23 Ticagrelor (Brilinta) 90 Mg Tablet, 90 MG PO BID for 30 Days, #60 TAB 2 Refills Prov:JANNET BLAKELY MD 05/30/23 [Nitroglycerin 0.4MG Sl Tab] 0.4 MG TAB.SUBL No Conflict Check, 0.4 MG SL AD PRN for CHEST PAIN for 30 Days, #30 2 Refills Prov:JANNET BLAKELY MD 05/30/23 Metoprolol Tartrate (Lopressor) 25 Mg Tab, 12.5 MG PO BID for 30 Days, #60 TAB 2 Refills Prov:JANNET BLAKELY MD 05/30/23 Atorvastatin Calcium (LIPITOR) 40 Mg Tablet, 40 MG PO HS for 30 Days, #30 TAB 2 Refills Prov:JANNET BLAKELY MD 05/30/23 Reported Medications Glimepiride (Glimepiride) 4 Mg Tablet, 1 TAB PO DAILY 05/25/23 Metaxalone (Metaxalone) 400 Mg Tablet, 1 TAB PO DAILY 05/25/23 Sulfamethoxazole/Trimethoprim (Sulfamethoxazole-Tmp Ss Tablet) 400 Mg-80 Mg Tablet, 2 TAB PO BID 05/25/23 Insulin Degludec (Tresiba Flextouch U-100) 100 Unit/Ml (3 Ml) Insuln.pen, 15 UNITS SQ ACBKFST 05/25/23 Omeprazole (Omeprazole) 40 Mg Capsule.dr, 1 CAP PO DAILY 04/02/23 Metformin HCl (Metformin HCl) 500 Mg Tablet, 1 TAB PO BID 04/02/23 Past Medical History Past Medical History: Diabetes-Type II, Hypertension Surgical History: None Surgical History Other: L FOOT PARTIAL AMPUTATION Family History: DM, HTN Social History: ETOH RN Note Reviewed/Agreed w/PFSH: Yes Review of System Dictation CONSTITUTIONAL: NEGATIVE EXCEPT FOR HPI HEAD/FACE: NEGATIVE EXCEPT FOR HPI EENT: NEGATIVE EXCEPT FOR HPI RESPIRATORY: NEGATIVE EXCEPT FOR HPI GASTROINTESTINAL/ABDOMINAL: NEGATIVE EXCEPT FOR HPI GENITOURINARY: NEGATIVE EXCEPT FOR HPI MUSCULOSKELETAL: NEGATIVE EXCEPT FOR HPI RIGHT CALF SWELLING TENDERNESS ERYTHEMA INTEGUMENTARY: NEGATIVE EXCEPT FOR HPI NEUROLOGICAL/PSYCH: NEGATIVE EXCEPT FOR HPI HEMATOLOGIC/LYMPHATIC: NEGATIVE EXCEPT FOR HPI ALL SYSTEMS NEGATIVE, EXCEPT NOTED ABOVE. 13 POINT REVIEW OF SYSTEMS ASSESSED AND ALL NEGATIVE EXCEPT FOR ABOVE. Initial Vital Sign VS Vital Signs Date Time Temp Pulse Resp B/P (MAP) Pulse Ox O2 Delivery O2 Flow Rate FiO2 04/08/24 17:12 99.5 97 18 153/92 98 04/08/24 18:10 Room Air* 0 21 Physical Exam Dictation VITAL SIGNS REVIEWED GENERAL APPEARANCE: ALERT, ORIENTED X 3, MILD ACUTE DISTRESS, WELL DEVELOPED, NOURISHED. HEAD AND FACE: NON-TRAUMATIC. EYES: PERRL, PINK CONJUNCTIVAS, EYELID NO TRAUMA, ANTERIOR CHAMBER WITH ARCUS SENILIS. EARS: PINNAS INTACT AND NO SIGNS OF TRAUMA OR ERYTHEMA EAR CANALS CLEAR AND NO DISCHARGE TM NO ERYTHEMA NOSE: NO DISCHARGE, NO BLEEDING. OROPHARYNX: MOUTH NORMAL, TONGUE PINK, PHARYNX CLEAR,NO ERYTHEMA, TONSILS NO EXUDATES, NO ABSCESSES NOTED, MUCOUS MEMBRANE MOIST NECK: SUPPLE, NON-TENDER, NO THYROMEGALY, NO MASSES, NO JVD, NO BRUITS BREAST:DEFERRED CHEST:NO TENDERNESS, NO CREPITUS, NO PARADOXICAL MOVEMENT, NO RETRACTIONS LUNGS:CLEAR, WELL-VENTILATED, SYMMETRIC, NO RALES, NO WHEEZING, NO RHONCHI, NO STRIDOR, GOOD BREATH SOUNDS BILATERALLY HEART: REGULAR RATE, REGULAR RHYTHM, NO MURMUR, NO GALLOPS VASCULAR: NO PERIPHERAL EDEMA, ABDOMEN: SOFT, POSITIVE BOWEL SOUNDS, NONDISTENDED, NO GUARDING, NONTENDER, NO REBOUND, NO MASSES NO HEPATOMEGALY, NO SPLENOMEGALY, NO BUCKLEY'S SIGN, NO HERNIAS. RECTAL: DEFERRED GENITAL: DEFERRED NEUROLOGICAL: NORMAL SPEECH, MOTOR FUNCTION INTACT, SENSORY FUNCTION INTACT MUSCULOSKELETAL: NECK NONTENDER, FULL RANGE OF MOTION, BACK NONTENDER, FULL RANGE OF MOTION, EXTREMITIES: NONTENDER, FULL RANGE OF MOTION SKIN: COLOR PINK, DRY, NO TURGOR, NO RASH, NO LACERATIONS, NO ABRASIONS, NO CONTUSIONS. LYMPHATIC: DEFERRED Results (Laboratory/Radiology) Laboratory/Radiology Laboratory Tests Test 04/08/24 18:00 04/08/24 20:55 04/08/24 21:30 White Blood Count 5.6 K/uL (4.8-10.8) Red Blood Count 3.48 MIL/uL (4.50-6.20) L Hemoglobin 11.0 g/dL (14.0-18.0) L Hematocrit 32.6 % (42-54) L Mean Corpuscular Volume 93.7 fL (79-99) Mean Corpuscular Hemoglobin 31.6 pg (27.0-33.0) Mean Corpuscular Hemoglobin Concent 33.7 g/dL (32.0-36.0) Red Cell Distribution Width 12.1 % (11.0-15.5) Platelet Count 240 K/uL (130-400) Mean Platelet Volume 10.1 fL (7.5-10.5) Immature Granulocyte % (Auto) 0.5 % (0-1) Neutrophils (%) (Auto) 70.7 % (40.0-77.0) Lymphocytes (%) (Auto) 21.4 % (21.0-51.0) Monocytes (%) (Auto) 6.3 % (3.0-13.0) Eosinophils (%) (Auto) 0.9 % (0.0-8.0) Basophils (%) (Auto) 0.2 % (0.0-5.0) Neutrophils # (Auto) 4.0 K/uL (1.8-7.7) Lymphocytes # (Auto) 1.2 K/uL (1.0-4.8) Monocytes # (Auto) 0.4 K/uL (0.1-1.0) Eosinophils # (Auto) 0.05 K/uL (0.00-0.70) Basophils # (Auto) 0.01 K/uL (0.00-0.20) Absolute Immature Granulocyte (auto 0.03 K/uL (0-1) Nucleated Red Blood Cells 0.0 % (0.0-0.19) Sodium Level 133 mmol/L (136-145) L Potassium Level 3.9 mmol/L (3.5-5.1) Chloride Level 98 mmol/L (101-111) L Carbon Dioxide Level 32 mmol/L (21-32) Blood Urea Nitrogen 15 mg/dL (7-18) Creatinine 1.1 mg/dL (0.5-1.3) Glomerular Filtration Rate Calc 78 mL/min (>90) Random Glucose 433 mg/dL (70-105) *H Lactic Acid Level 1.1 mmol/L (0.8-2.5) Total Calcium 8.8 mg/dL (8.5-10.1) Whole Blood Glucose 285 MG/DL (70-110) H 278 MG/DL (70-110) H Labs Reviewed?: Yes ED Course ED Course Orders Procedure Category Date Status Time Foot Comp 3+Vws Rt RAD 04/08/24 Resulted 17:33 Blood Cult FLOR 04/08/24 In Process 17:33 Lactic Acid LAB 04/08/24 Complete 17:33 Cbc With Differential LAB 04/08/24 Complete 17:33 0.9%Nacl 1000ml (Ns PHA 04/08/24 Complete 1000ml) 18:00 Basic Metabolic Panel LAB 04/08/24 Complete 17:33 Us Venous Doppler US 04/08/24 Resulted Unilateral 17:33 Insulin Regular, PHA 04/08/24 Complete Human 3ml (Humulin R 19:00 0.9%Nacl 1000ml (Ns PHA 04/08/24 Complete 1000ml) 19:00 Clindamycin 150mg Cap PHA 04/08/24 Complete (Cleocin 150mg Cap 20:30 Bedside Glucose CPOE 04/08/24 Transmitted Fingerstick 20:43 Insulin Regular, PHA 04/08/24 Complete Human 3ml (Humulin R 21:00 Current Medications Medications (Trade) Dose Ordered Sig/Jl Route PRN Reason Start Time Stop Time Status Last Admin Dose Admin Clindamycin HCl (Cleocin 150mg Cap) 600 mg ONCE ONCE PO 04/08/24 20:30 04/08/24 20:31 DC 04/08/24 20:24 Insulin Human Regular (humuLIN R 100 UNIT/ML 3ML) 5 unit ONCE ONCE SQ 04/08/24 21:00 04/08/24 21:01 DC 04/08/24 21:02 Insulin Human Regular (humuLIN R 100 UNIT/ML 3ML) 15 unit ONCE IV 04/08/24 19:00 04/08/24 22:42 DC Sodium Chloride 1,000 ml @ 0 mls/hr ONCE IV 04/08/24 19:00 04/08/24 22:42 DC 04/08/24 19:19 Sodium Chloride 1,000 ml @ 0 mls/hr ONCE ONCE IV 04/08/24 18:00 04/08/24 18:01 DC 04/08/24 18:16 Vital Signs Date Time Temp Pulse Resp B/P (MAP) Pulse Ox O2 Delivery O2 Flow Rate FiO2 04/08/24 22:03 98 18 151/88 97 Room Air* 0 04/08/24 21:08 99 18 143/97 96 Room Air* 0 04/08/24 19:30 98.1 97 18 162/78 96 Room Air* 0 04/08/24 18:10 99.0 92 18 169/90 96 Room Air* 0 04/08/24 17:12 99.5 97 18 153/92 98 1950 spoke with patient at length with Alida Page/TONY at bedside. Patient is adamant that he does not want to be admitted to the hospital states he understands he has not been compliant with his medications and ran out of metformin 500 mg b.i.d., Humalog 70 30 insulin that he takes 10 units daily. He states he came in to be checked out because his girlfriend made him however he said he will after the holidays and , we will follow up with his primary care doctor next week. I explained to him that I would like to keep him in for a couple of days to get him tuned up however I understood it was and he wanted to be home with family. He agreed to let me rehydrate him and get his blood sugar down and under some control and then I w ould discharge him home with clindamycin and refill his Humalog 70 30 and metformin 500 b.i.d. with meals 2131, REPEAT BLOOD SUGAR 278 AFTER FLUIDS AND INSULIN. PATIENT WISHES TO BE DISCHARGED, WE WILL BE SENT HOME WITH THE MEDICATIONS DOCUMENTED AND TOLD TO SEE HIS DOCTOR IN THE NEXT SEVERAL DAYS. Medical Decision Making MDM MDM: DIFFERENTIAL DIAGNOSIS: RIGHT LEG DVT/CELLULITIS/UNCONTROLLED DIABETES/ELECTROLYTE IMBALANCE/DEHYDRATION/SIRS CRITERIA/NONCOMPLIANCE RATIONALE: TESTS CONSIDERED AND ORDERED SECONDARY TO SHARED DECISION MAKING INCLUDE: RADIOLOGY/LABS PREVIOUS OUTSIDE RECORDS REVIEWED: OLD ER VISITS. REVIEWED RISK OF COMPLICATION AND/OR MORBIDITY OR MORTALITY OF PATIENT MANAGEMENT: NONE MEDICATIONS-PER MEDICATION RECONCILIATION NEED FOR HOSPITALIZATION: PATIENT DOES NOT MEET CRITERIA FOR HOSPITALIZATION. PATIENT REFUSES HOSPITALIZATION DUE TO NEED FOR EMERGENCY MAJOR/MINOR SURGERY: NO THERE ARE NO SOCIAL CONCERNS WITH THIS PATIENT. PRESCRIPTION DRUG MANAGEMENT CLINDAMYCIN/HUMALOG 70/30/METFORMIN 500 PRESCRIPTIONS WILL INCLUDE SYMPTOMATIC CARE PATIENT'S PRIOR EXTERNAL MEDICAL RECORDS FROM OTHER ER VISITS WERE REVIEWED BY ME INDICATED. PRIOR TESTING AND RESULTS FROM PREVIOUS VISITS WERE REVIEWED. PRIOR TESTS WERE TAKEN INTO ACCOUNT WITH MEDICAL DECISION MAKING AND RESOURCE UTILIZATION, INDEPENDENT HISTORIAN/HISTORIANS WERE USED TO OBTAIN COMPLETE MEDICAL HISTORY. I INDEPENDENTLY INTERPRETED THE TEST THAT WERE PERFORMED, RESULTS WERE REVIEWED BY ME AND CONSIDERED FINDINGS ON RADIOLOGY IF ORDERED. MEDICAL MANAGEMENT AND EXAMINATION INTERPRETATION DISCUSSIONS WERE HAD BY ME WITH OTHER QUALIFIED HEALTHCARE PROFESSIONALS INDICATED FOR THE PATIENT'S CARE. DX & DISP Disposition: Discharge Departure Impression: Primary Impression: Cellulitis of right leg without foot Additional Impressions: Uncontrolled diabetes mellitus, Hyponatremia, Medically noncompliant Condition: Stable Scripts Metformin HCl (Metformin HCl) 1,000 Mg Tablet 1000 MG PO BID, #60 TAB HALF A TABLET TWICE A DAY WITH MEALS Prov: DILLON MARTINEZ MECHANICAL SYSTEMS DESIGN ENGINEER 04/08/24 Insulin NPL/Insulin Lispro (Humalog Mix 75/25) 100 Unit/Ml (75-25) Inj 10 UNITS SQ DAILY, #1 VIAL 0 Refills Prov: DILLON MARTINEZ NP 04/08/24 Clindamycin HCl (Clindamycin HCl) 300 Mg Capsule 1 CAP PO QID for 10 Days, #40 CAP 0 Refills Prov: DILLON MARTINEZ NP 04/08/24 Additional Instructions: FOLLOW-UP WITH PRIMARY CARE PROVIDER IN 1 TO 2 DAYS. TAKE MEDICATIONS DIRECTED HERE IN THE EMERGENCY ROOM. OKAY TO CONTINUE HOME MEDICATIONS UNLESS OTHERWISE DISCUSSED DURING YOUR VISIT IN THE EMERGENCY ROOM TODAY. RETURN TO YOUR NEAREST EMERGENCY ROOM IF SYMPTOMS WORSEN OR IF THERE IS NO IMPROVEMENT. CALL 911 IF YOU NEED IMMEDIATE ASSISTANCE. TAKE TYLENOL OR MOTRIN [id number] NEEDED AND IF NO CONTRAINDICATIONS ARE PRESENT. INCREASE ORAL HYDRATION. A WOUND CULTURE OR URINE CULTURE WAS ORDERED HERE IN THE EMERGE [facility] ROOM DEPARTMENT PLEASE FOLLOW-UP WITH PRIMARY CARE PROVIDER AND ADVISE THEM TO GET REPEAT PORTS FROM OUR FACILITY. IF YOU HAD ANY GUDELIA WRAP/SPLINTS THAT WERE APPLIED HERE, PLEASE DO NOT REMOVE THEM UNTIL YOU SEE YOUR PRIMARY CARE OR SPECIALTY. TAKE ANTIBIOTICS DIRECTED UNTIL GONE., KEEP RIGHT LEG ELEVATED MUCH POSSIBLE. USE METFORMIN AND HUMALOG DIRECTED. FOLLOW UP WITH YOUR PRIMARY CARE DOCTOR SOON POSSIBLE. Referrals: MARII SUNG Jr., MD (PCP) Time of Disposition: 21:35 I have reviewed the case, and I agree with, Diagnosis and Plan ATTESTATION BY PHYSICIAN I PERFORMED THE SUBSTANTIVE PORTION OF THE VISIT. I HAVE REVIEWED AND PERSONALLY MADE AND APPROVED THE MANAGEMENT PLAN THAT IS DOCUMENTED IN THE NOTE BY MYSELF FOR THE A PP. I ACKNOWLEDGED FOR RESPONSIBILITY FOR THE PATIENT'S MANAGEMENT PLAN. DILLON MARTINEZ NP Apr 08, 2024 17:43 ROMAN BACON MD Apr 09, 2024 05:16
[2024-04-08 18:16] LABS: BASOPHILS # (AUTO) 0.01 K/uL (0.00-0.20); BASOPHILS % (AUTO) 0.2 % (0.0-5.0); EOSINOPHILS # (AUTO) 0.05 K/uL (0.00-0.70); EOSINOPHILS % (AUTO) 0.9 % (0.0-8.0); HEMATOCRIT 32.6 % (42-54); IMMATURE GRANULOCYTE ABSOLUTE 0.03 K/uL (0-1); LYMPHOCYTES # (AUTO) 1.2 K/uL (1.0-4.8); LYMPHOCYTES % (AUTO) 21.4 % (21.0-51.0); MEAN CORPUSCULAR HEMOGLOBIN 31.6 pg (27.0-33.0); MEAN CORPUSCULAR HGB CONC 33.7 g/dL (32.0-36.0); MEAN CORPUSCULAR VOLUME 93.7 fL (79-99); MONOCYTES # (AUTO) 0.4 K/uL (0.1-1.0); MONOCYTES % (AUTO) 6.3 % (3.0-13.0); NEUTROPHILS % (AUTO) 70.7 % (40.0-77.0); PLATELET COUNT (AUTO) 240 K/uL (130-400); RED BLOOD CELL COUNT(AUTO) 3.48 MIL/uL (4.50-6.20); RED CELL DISTRIBUTION WIDTH 12.1 % (11.0-15.5); WHITE BLOOD COUNT (AUTO) 5.6 K/uL (4.8-10.8)
[2024-04-08] MEDS: 0.9%NACL 1000ML 1,000 ML IV ONE (18:16)
--- NOTE | 2024-04-08 18:36 | HMCIMG ---
US VENOUS DOPPLER UNILATERAL REASON: RIGHT CALF SWELLING TENDERNESS COMPARISON: None Technique: Right venous doppler ultrasound was performed with spectral analysis and color flow imaging technique. FINDINGS: There is a normal appearance of the common femoral, deep femoral, the profunda femoris and popliteal veins. Proximal calf veins appear normal as well. There is normal response to compression and augmentation. There is no evidence of deep venous thrombosis. IMPRESSION: Normal right lower extremity venous Doppler ultrasound.
[2024-04-08 18:44] LABS: CREATININE 1.1 mg/dL (0.5-1.3); POTASSIUM 3.9 mmol/L (3.5-5.1)
--- NOTE | 2024-04-08 18:57 | HMCIMG ---
FOOT COMP 3+VWS RT REASON: FOUL-SMELLING ULCER TO RIGHT FOOT STUMP RULE OUT OSTEO TECHNIQUE: 3 views were obtained. FINDINGS: There is soft tissue swelling. There is a focal defect in the soft tissues consistent with the history of an ulcer. 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 Remaining bones appear unremarkable. There is no focal bone lysis to suggest osteoblastic myelitis. IMPRESSION: 1. Soft tissue swelling and ulceration. 2. No evidence of osteomyelitis.
[2024-04-08] MEDS: INSULIN humuLIN R 100 UNIT/ML 3ML IV SCH (19:00)
[2024-04-08] MEDS: 0.9%NACL 1000ML 1,000 ML IV SCH (19:19)
[2024-04-08 19:30] VITALS: TEMP 98.1
[2024-04-08] MEDS: CLINDAMYCIN 150 MG CAP PO ONE (20:24)
[2024-04-08] MEDS: INSULIN humuLIN R 100 UNIT/ML 3ML SQ ONE (21:02)
[2024-04-08] MEDS ORDERED: CLIN-141 PO (21:42)
[2024-04-08] MEDS ORDERED: HUMLIS7525 SQ (21:42)
[2024-04-08] MEDS ORDERED: METF-446 PO (21:42)
[2024-04-08 22:03] VITALS: BP 151/88; PULSE 98; RESP 18; O2SAT 97
--- NOTE | 2024-04-08 22:30 | NUR ---
WOUND WRAPPED AND BOOT APPLIED PRIOR TO DISCHARGE.
== END 2024-04-08 22:34 | disposition home or self-care (01) ==
LOC: EDH 16:15
DX: L03.115 Cellulitis of right lower limb (principal); E11.65 Type 2 diabetes mellitus with hyperglycemia; E87.1 Hypo-osmolality and hyponatremia; I10 Essential (primary) hypertension; M79.661 Pain in right lower leg; Z79.02 Long term (current) use of antithrombotics/antiplatelets; Z79.4 Long term (current) use of insulin; Z79.82 Long term (current) use of aspirin; Z79.84 Long term (current) use of oral hypoglycemic drugs; Z79.899 Other long term (current) drug therapy; Z91.199 Patient's noncompliance with other medical treatment and regimen due to unspecified reason
CPT/HCPCS: 99284; 96360; 96361; 93971; 80048; 85025; 87040 ×2; 82948 ×2; 83605; 36415; 73630; 96372; J1815

== ENCOUNTER 2024-04-13 16:42 | Inpatient (IN) | payer BC ==
[~2024-04-13] VITALS: Ht 182.9 cm; Wt 76.8 kg
[~2024-04-13 16:42] MED LIST changes: +CLIN-141 PO; +HUMLIS7525 SQ; +METF-446 PO
[2024-04-13] MEDS ORDERED: VANCOMYCIN PROTOCOL PER PHARMACY IV SCH (17:26)
[2024-04-13] MEDS ORDERED: VANCOMYCIN KIT 1 GM/250 ML IV.KIT IV ONE (17:30)
--- NOTE | 2024-04-13 17:46 | ERN ---
ED Note History of Present Illness Stated Complaint: SENT BY LAUREN FOR RT LEF CALF WOUND Chief Complaint: Wound Check Time Seen by MD: 16:44 Dictation: Patient is a 59-year-old male with past medical history of right foot partial amputation, heart disease, hypertension, diabetes came to the ED as he was advised by his primary to check on his right foot wound. Patient had this right foot partial amputation 1 year ago, patient had ulcer on the plantar aspect of his right foot is dirty not very well dressed and also one more ulcer on the right foot calf. His primary Dr. Grossman, took a look at the right foot today and informed him that it looks infected and need to be debrided to prevent further infection which might lead to below-knee amputation. So the patient was c oncerned and came to the ED on his advice. Patient is noncompliant with the medications. Patient has been to ED a week ago for right leg cellulitis and took antibiotics which helped relieve the infection and inflammation of right foot. Allergies: Coded Allergies: No Known Allergies (Verified Allergy, Severe, 02/17/15) Home Meds Active Scripts Metformin HCl (Metformin HCl) 1,000 Mg Tablet, 1000 MG PO BID, #60 TAB HALF A TABLET TWICE A DAY WITH MEALS Prov:DILLON MARTINEZ NP 04/08/24 Insulin NPL/Insulin Lispro (Humalog Mix 75/25) 100 Unit/Ml (75-25) Inj, 10 UNITS SQ DAILY, #1 VIAL 0 Refills Prov:DILLON MARTINEZ NP 04/08/24 Clindamycin HCl (Clindamycin HCl) 300 Mg Capsule, 1 CAP PO QID for 10 Days, #40 CAP 0 Refills Prov:DILLON MARTINEZ NP 04/08/24 Aspirin (ASPIRIN 81 MG ECTAB) 81 Mg Ectab, 81 MG PO DAILY for 30 Days, #30 TAB.EC 2 Refills Prov:JANNET BLAKELY MD 05/30/23 Nitroglycerin (Nitroglycerin) 0.4 Mg Tab.subl, 0.4 MG SL [id number] PRN for chest pain, #30 TAB.SL 2 Refills Prov:JANNET BLAKELY MD 05/30/23 Ticagrelor (Brilinta) 90 Mg Tablet, 90 MG PO BID for 30 Days, #60 TAB 2 Refills Prov:JANNET BLAKELY MD 05/30/23 [Nitroglycerin 0.4MG Sl Tab] 0.4 MG TAB.SUBL No Conflict Check, 0.4 MG SL AD PRN for CHEST PAIN for 30 Days, #30 2 Refills Prov:JANNET BLAKELY MD 05/30/23 Metoprolol Tartrate (Lopressor) 25 Mg Tab, 12.5 MG PO BID for 30 Days, #60 TAB 2 Refills Prov:JANNET BLAKELY MD 05/30/23 Atorvastatin Calcium (LIPITOR) 40 Mg Tablet, 40 MG PO HS for 30 Days, #30 TAB 2 Refills Prov:JANNET BLAKELY MD 05/30/23 Reported Medications Glimepiride (Glimepiride) 4 Mg Tablet, 1 TAB PO DAILY 05/25/23 Metaxalone (Metaxalone) 400 Mg Tablet, 1 TAB PO DAILY 05/25/23 Sulfamethoxazole/Trimethoprim (Sulfamethoxazole-Tmp Ss Tablet) 400 Mg-80 Mg Tablet, 2 TAB PO BID 05/25/23 Insulin Degludec (Tresiba Flextouch U-100) 100 Unit/Ml (3 Ml) Insuln.pen, 15 UNITS SQ ACBKFST 05/25/23 Omeprazole (Omeprazole) 40 Mg Capsule.dr, 1 CAP PO DAILY 04/02/23 Metformin HCl (Metformin HCl) 500 Mg Tablet, 1 TAB PO BID 04/02/23 Past Medical History Past Medical History: Diabetes-Type II, Heart Disease, Hypertension Surgical History: None Surgical History Other: R FOOT PARTIAL AMPUTATION, LEFT TOE AMPUTATION Family History: DM, HTN Social History: ETOH Review of System Dictation Constitutional-no chills, weight loss/gain, fever Eyes-no injury, pain, redness and discharge ENT-no injury, pain, swelling Cardiovascular no chest pain, palpitations, edema Respiratory no shortness of breath, cough, wheezing Abdomen/GI-no abdominal pain, diarrhea, constipation, vomiting, nausea Back no injury and pain Genitourinary no injury, bleeding and discharge Musculoskeletal/extremities no injury, deformity . Right foot partial amputation, right foot plantar ulcer, ulcer on posterior aspect of right calf Skin no rash, discoloration Neuro-no headache, weakness, numbness, tingling, seizures, tremors Psych-no suicidal ideation, homicidal ideation, hallucinations, depression, anxiety, memory loss Initial Vital Sign VS Vital Signs Date Time Temp Pulse Resp B/P (MAP) Pulse Ox O2 Delivery O2 Flow Rate FiO2 04/13/24 16:45 97.7 119 16 174/109 98 Room Air 0 Physical Exam Dictation General-patient is awake alert and oriented Head/neck-normocephalic, atraumatic Eyes-PERRL, EOMI, vision at baseline Neck-trachea midline, supple, no nuchal rigidity Cardiovascular-RRR, normal S1/S2, no MRG is, no JVD Respiratory-no distress, wheezing, rales, rhonchi Abdomen-no tenderness, guarding, soft, nondistended Skin right leg edematous, tender Musculoskeletal/extremities pulses equal, no cyanosis Neuro-COA X 4, GCS 15, strength 5/5, CN 2-12 intact Psych-normal behavior, mood and affect normal Results (Laboratory/Radiology) Laboratory/Radiology Laboratory Tests Test 04/13/24 18:38 White Blood Count 10.3 K/uL (4.8-10.8) Red Blood Count 3.21 MIL/uL (4.50-6.20) L Hemoglobin 10.2 g/dL (14.0-18.0) L Hematocrit 30.1 % (42-54) L Mean Corpuscular Volume 93.8 fL (79-99) Mean Corpuscular Hemoglobin 31.8 pg (27.0-33.0) Mean Corpuscular Hemoglobin Concent 33.9 g/dL (32.0-36.0) Red Cell Distribution Width 12.2 % (11.0-15.5) Platelet Count 382 K/uL (130-400) Mean Platelet Volume 9.4 fL (7.5-10.5) Immature Granulocyte % (Auto) 0.5 % (0-1) Neutrophils (%) (Auto) 77.1 % (40.0-77.0) H Lymphocytes (%) (Auto) 16.1 % (21.0-51.0) L Monocytes (%) (Auto) 4.9 % (3.0-13.0) Eosinophils (%) (Auto) 1.1 % (0.0-8.0) Basophils (%) (Auto) 0.3 % (0.0-5.0) Neutrophils # (Auto) 8.0 K/uL (1.8-7.7) H Lymphocytes # (Auto) 1.7 K/uL (1.0-4.8) Monocytes # (Auto) 0.5 K/uL (0.1-1.0) Eosinophils # (Auto) 0.11 K/uL (0.00-0.70) Basophils # (Auto) 0.03 K/uL (0.00-0.20) Absolute Immature Granulocyte (auto 0.05 K/uL (0-1) Nucleated Red Blood Cells 0.0 % (0.0-0.19) Erythrocyte Sedimentation Rate 121 MM/HR (0-20) H Sodium Level 136 mmol/L (136-145) Potassium Level 3.6 mmol/L (3.5-5.1) Chloride Level 101 mmol/L (101-111) Carbon Dioxide Level 30 mmol/L (21-32) Blood Urea Nitrogen 14 mg/dL (7-18) Creatinine 1.0 mg/dL (0.5-1.3) Glomerular Filtration Rate Calc 88 mL/min (>90) Random Glucose 253 mg/dL (70-105) H Total Calcium 8.5 mg/dL (8.5-10.1) Labs Reviewed?: Yes ED Course ED Course Orders Procedure Category Date Status Time Cbc With Differential LAB 04/13/24 Complete 17:26 Basic Metabolic Panel LAB 04/13/24 Complete 17:26 Erythrocyte LAB 04/13/24 Complete Sedimentation Rate 17:26 Blood Cult FLOR 04/13/24 Logged 17:26 Anaerobic Culture FLOR 04/13/24 Logged 17:26 Aerobic Culture FLOR 04/13/24 Logged 17:26 Vancomycin 1g/250ml PHA 04/13/24 Complete Kit (Vancomycin 1g/2 17:30 Vancomycin Protocol PHA 04/13/24 In Process (Vancomycin Protocol 17:26 Zosyn 3.375gm+Ns 50ml PHA 04/13/24 Complete (Zosyn 3.375gm+Ns 17:26 Tibia/Fibula 2vws Rt RAD 04/13/24 Resulted 17:26 Vancomycin 2gm/500 Ml PHA 04/13/24 Complete Bag (Vancomycin 2g 18:00 Vancomycin 1.25 PHA 04/14/24 In Process Gm/250 Ml Bag 08:00 Vancomycin Trough LAB 04/15/24 Verified 07:00 Current Medications Medications (Trade) Dose Ordered Sig/Jl Route PRN Reason Start Time Stop Time Status Last Admin Dose Admin Piperacillin Sod/ Tazobactam Sod (Zosyn 3.375gm+NS 50ml) 3.375 gm Q12H STAT IV 04/13/24 17:26 04/13/24 17:33 DC Vancomycin HCl 250 ml @ 125 mls/hr Q12H IV 04/14/24 08:00 04/24/24 07:59 Vancomycin HCl 500 ml @ 250 mls/hr ONCE ONCE IV 04/13/24 18:00 04/13/24 19:59 DC Vancomycin HCl (Vancomycin Protocol) 1 each AD IV 04/13/24 17:26 04/27/24 17:25 Vancomycin HCl (Vancomycin 1g/ 250ml Kit) 1 gm ONCE ONCE IV 04/13/24 17:30 04/13/24 17:32 DC Vital Signs Date Time Temp Pulse Resp B/P (MAP) Pulse Ox O2 Delivery O2 Flow Rate FiO2 04/13/24 16:45 97.7 119 16 174/109 98 Room Air 0 7:00 p.m. patient was signed out to me by a.m. physician. This is a 59-year-old male who was sent to the emergency room by his primary care physician. Patient had a right foot amputation partial a year ago and he is followed by boiler assistant operator Dr. Rousseau. He was recently seen in the emergency room for infection of the right foot as well as the calf area with drainage and outpatient antibiotic therapy was given. When he went for follow up with his primary care physician who was concerned about ongoing drainage from the calf despite the antibiotic therapy and referred him back to the emergency room for further evaluation He denied any fevers chills and rigors. Labs reviewed white count is 10.3 BNP 7 showed a bicarb of 30 BUN and creatinine are 14 and 1.0 with a glucose of 253 His chronic medical problems include diabetes mellitus, hypertension, coronary artery disease. Barriga cultures were obtained and patient received empiric Zosyn and vancomycin. X-ray of the right leg TBI fibula did not show any obvious fractures or dislocations there might be as slight area of periosteal reaction unable to determine obvious osteomyelitis on x-ray. Recommend admission to the hospital for IV antibiotic therapy and also to pursue additional imaging studies to evaluate for osteomyelitis, arterial studies. 8:20 p.m. hospitalist group paged for admission Medical Decision Making MDM INITIAL IMPRESSION Initial history and physical concerning for right foot ulcer Contributing medical problems: Diabetes mellitus I have reviewed the triage nursing notes and vital signs. Initial plan: Laboratory evaluation and x-ray DATA REVIEW I have reviewed additional NN, repeat VS, and monitoring where indicated. Heart rate, blood pressure elevated. O2 saturation are acceptable. ED COURSE Interventions: Reassessment: DISPOSITION Final diagnostic impression: I discussed my findings, clinical impression and treatment recommendations with the patient. My final plan for disposition was made based upon -mild risk of complications and potential morbidity of the patient's condition. -Discussion with the patient regarding management options. {disposition} Problem List Problem List: (1) Sepsis, unspecified organism (2) Open leg wound (3) Medically noncompliant (4) Cellulitis of right leg without foot (5) Uncontrolled diabetes mellitus (6) Peripheral vascular disease due to secondary diabetes DX & DISP Disposition: Inpatient Decision to Admit Time: 08:20 Departure Impression: Primary Impression: Open leg wound Additional Impressions: Sepsis, unspecified organism, Uncontrolled diabetes mellitus, Cellulitis of right leg without foot, Medically noncompliant, Peripheral vascular disease due to secondary diabetes Condition: Stable Additional Instructions: Patient was informed of all the diagnostic labs and procedures conducted in the emergency room today and demonstrated understanding of the results. I personally reviewed and interpreted all the diagnostic exams performed in the ER today. The patient will be admitted to the hospital for further treatment and evaluation. Disposition-admit to facility Condition-stable/guarded Course-uncertain at this time Pain status-decreased Assessment-exam unchanged Admission Certification- I certify that the patients status is appropriate and is based on my best clinical judgment and the patient's condition as documented in the medical records Referrals: MARII GROSSMAN Jr., MD (PCP) CAITY LUNA MD Apr 13, 2024 17:46 ROMAN BACON MD Apr 13, 2024 19:02 JAZZMINE RODRIGUEZ MD Apr 13, 2024 20:30
[2024-04-13 18:47] LABS: BASOPHILS # (AUTO) 0.03 K/uL (0.00-0.20); BASOPHILS % (AUTO) 0.3 % (0.0-5.0); EOSINOPHILS # (AUTO) 0.11 K/uL (0.00-0.70); EOSINOPHILS % (AUTO) 1.1 % (0.0-8.0); HEMATOCRIT 30.1 % (42-54); IMMATURE GRANULOCYTE ABSOLUTE 0.05 K/uL (0-1); LYMPHOCYTES # (AUTO) 1.7 K/uL (1.0-4.8); LYMPHOCYTES % (AUTO) 16.1 % (21.0-51.0); MEAN CORPUSCULAR HEMOGLOBIN 31.8 pg (27.0-33.0); MEAN CORPUSCULAR HGB CONC 33.9 g/dL (32.0-36.0); MEAN CORPUSCULAR VOLUME 93.8 fL (79-99); MONOCYTES # (AUTO) 0.5 K/uL (0.1-1.0); MONOCYTES % (AUTO) 4.9 % (3.0-13.0); NEUTROPHILS % (AUTO) 77.1 % (40.0-77.0); PLATELET COUNT (AUTO) 382 K/uL (130-400); RED BLOOD CELL COUNT(AUTO) 3.21 MIL/uL (4.50-6.20); RED CELL DISTRIBUTION WIDTH 12.2 % (11.0-15.5); WHITE BLOOD COUNT (AUTO) 10.3 K/uL (4.8-10.8)
[2024-04-13 19:00] LABS: POTASSIUM 3.6 mmol/L (3.5-5.1)
--- NOTE | 2024-04-13 19:41 | HMCIMG ---
TIBIA/FIBULA 2VWS RT HISTORY: 1 COMPARISON: None TECHNIQUE: 4 images of right tibia and fibula were obtained. FINDINGS: There is no acute displaced fracture or dislocation. Transtarsal amputation of the right foot is seen. Vascular calcifications are seen. Soft tissue swelling is seen. Evaluation for osteomyelitis is limited with radiographs. Degenerative changes are seen. IMPRESSION: 1. Findings as described above.
[2024-04-13 19:48] LABS: ERYTHROCYTE SEDIMENTATION RATE 121 MM/HR (0-20)
[2024-04-13] MEDS: ZOSYN 3.375GM +NS 50ML IV STA (20:52)
[2024-04-13] MEDS: VANCOMYCIN 2GM/500 ML BAG 500 ML IV ONE (21:25)
[2024-04-13] MEDS: 0.9%NACL 1000ML 1,000 ML IV ONE (21:32)
[2024-04-13] MEDS ORDERED: GLUCAGON 1MG KIT 1 MG ML IM PRN (23:00)
[2024-04-13] MEDS ORDERED: PoTASSium chloRIDE 20MEQ/100ML 100 ML IV PRN (23:00)
[2024-04-13] MEDS ORDERED: VANCOMYCIN 1G/250ML KIT 250 ML IV SCH (23:00)
[2024-04-13] MEDS ORDERED: DEXTROSE 50%-WATER 50 ML DISP.SYRIN IV PRN (23:00)
[2024-04-13] MEDS ORDERED: ondanSETRON 4MG INJ IV PRN (23:00)
--- NOTE | 2024-04-13 23:00 | HP ---
[facility] HISTORY AND PHYSICAL Date of Service: Apr 13, 2024 Time of Service: 23:00 PCP : Chauncey Carlson HISTORY OF PRESENT ILLNESS: This is a 59-year-old male with past medical history of diabetes, hypertension, hyperlipidemia, right internal carotid stenosis, TIA and diabetic foot ulcers with a surgical history of left great toe amputation and right rearfoot amputation who presents to the ED for evaluation of right posterior leg draining wound.Patient states he was seen in this ER on 04/08/24 for similar complaints and was given antibiotic and sent home with prescription .Patient states he was doing the dressing himself at home but he noticed his wound is getting worse so he went to see his PCP today who advised him to go to the ED for evaluation. Seen and examined patient in the ED awake,alert and coherent,appears comfortable.Patient has a draining open wound behind his right lower leg without foot which is covered with dressing.Patient has also a chronic wound ulcer to his stump.Patient denies fever,chill,nausea,vomiting,chest pain,palpitation and shortness of breath. Latest vital signs temperature 97.7 heart rate 119 blood pressure 174/109 saturation 98% on room air. Labs: Hemoglobin 10.2, hematocrit 30 platelet count 382. Glucose 253 the rest of the chemistry result is unremarkable. X-ray of the right tibia fibula hold revealed there is no acute displaced fracture or dislocation. 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 Vascular calcifications are seen. Soft tissue swelling is seen. Evaluation for osteomyelitis is limited with radiographs degenerative changes are seen. While in the ER patient was given 1 L NS bolus, IV Zosyn and vancomycin. We will admit patient for further medical management. REVIEW OF SYSTEMS CONSTITUTIONAL: Denies fevers, chills, or night sweats. No unintentional weight loss reported. NEUROLOGICAL: Denies headache, amaurosis fugax, motor weakness, sensory deficit, vertigo/spinning sensation, gait abnormalities, or tremors. ENT: No hearing loss, otalgia, otorrhea, rhinitis, rhinorrhea, hoarseness, or sore throat. CARDIOVASCULAR: Denies any exertional angina, dyspnea on exertion, orthopnea, paroxysmal nocturnal dyspnea, palpitations, life-threatening arrhythmias, claudication. PULMONARY: Denies any shortness of breath, cough, phlegm/sputum, hemoptysis, pleuritic chest pain. SLEEP: Denies morning headaches, daytime somnolence or napping. Denies difficulty falling asleep, staying asleep, waking from sleep. Denies knowledge of snoring. GASTROINTESTINAL: Denies any type of dysphagia to either liquids or solids. Denies nausea, vomiting, pyrosis, early satiety, abdominal pain, diarrhea, constipation, or changes in stool consistency or caliber. Denies coffee-ground emesis, hematemesis, hematochezia, or melanotic stools. GENITOURINARY: Denies frequency, urgency, nocturia, hematuria or incontinence (Storage/Irritative symptoms.) Low urinary stream, straining to void, urinary intermittency or hesitancy, splitting of the voiding stream, terminal dribbling. ENDOCRINOLOGIC: Denies polyuria, polydipsia, polyphagia or heat/cold intolerances. HEMATOLOGIC: Denies thrombophilia/previous clots, or coagulopathy/bleeding disorders. ONCOLOGIC: Denies personal history of malignancy. DERMATOLOGIC: Denies rashes or pruritus. PSYCHIATRIC: Denies any suicidal or homicidal ideation. Denies hallucinations. PAST MEDICAL HISTORY: Hypertension Hyperlipidemia Right internal Carotid artery stenosis Diabetes TIA on April 01, 2023 Right foot gangrene PAST SURGICAL HISTORY: Right foot amputation 03/01/[address] Godfrey Left big toe amputation 06/01/2022 PAST SOCIAL HISTORY: Patient lives alone. Patient admits to drinking beer 12 per day last consumption this afternoon. Patient denies cigarette and recreational drug use. FAMILY HISTORY: Hypertension Diabetes Asthma Cancer Coded Allergies: No Known Allergies (Verified Allergy, Severe, 02/17/15) PHYSICAL EXAM GENERAL APPEARANCE: The patient is awake, alert, and oriented, in no acute cardiopulmonary distress. NEUROLOGICAL: Cranial nerves II-XII grossly intact. Motor is 5/5 in bilateral upper and lower extremities proximal to distal. No sensory deficits. HEENT: Face is symmetric. Pupils are equal and reactive. Extraocular movements are intact. NECK: Supple. No JVD. No thyromegaly. No submental, submandibular, pre- /postauricular, occipital or supraclavicular lymphadenopathy. CHEST: Normal chest expansion. No Telemetry. LUNGS: Absence of any rales, rhonchi or any wheezing. CARDIOVASCULAR: Regular. S1 and S2 normal. No appreciable rubs, murmurs or gallops. ABDOMEN: Soft, nontender, and nondistended. There is no rebound, voluntary guarding, or rigidity. : Deferred. No Abrams. EXTREMITIES: Non-edematous and not cyanotic. No clubbing. Good capillary refill. SKIN: No skin breakdown. Vital Sign (Last 24 Hours) 04/13/24 16:45 Temp 97.7 Pulse 119 Resp 16 B/P (MAP) 174/109 Pulse Ox 98 O2 Delivery Room Air O2 Flow Rate 0 LABS: Laboratory: Test 04/13/24 18:38 Range/Units White Blood Count 10.3 4.8-10.8 K/uL Red Blood Count 3.21 L 4.50-6.20 MIL/uL Hemoglobin 10.2 L 14.0-18.0 g/dL Hematocrit 30.1 L 42-54 % Mean Corpuscular Volume 93.8 79-99 fL Mean Corpuscular Hemoglobin 31.8 27.0-33.0 pg Mean Corpuscular Hemoglobin Concent 33.9 32.0-36.0 g/dL Red Cell Distribution Width 12.2 11.0-15.5 % Platelet Count 382 130-400 K/uL Mean Platelet Volume 9.4 7.5-10.5 fL Immature Granulocyte % (Auto) 0.5 0-1 % Neutrophils (%) (Auto) 77.1 H 40.0-77.0 % Lymphocytes (%) (Auto) 16.1 L 21.0-51.0 % Monocytes (%) (Auto) 4.9 3.0-13.0 % Eosinophils (%) (Auto) 1.1 0.0-8.0 % Basophils (%) (Auto) 0.3 0.0-5.0 % Neutrophils # (Auto) 8.0 H 1.8-7.7 K/uL Lymphocytes # (Auto) 1.7 1.0-4.8 K/uL Monocytes # (Auto) 0.5 0.1-1.0 K/uL Eosinophils # (Auto) 0.11 0.00-0.70 K/uL Basophils # (Auto) 0.03 0.00-0.20 K/uL Absolute Immature Granulocyte (auto 0.05 0-1 K/uL Nucleated Red Blood Cells 0.0 0.0-0.19 % Erythrocyte Sedimentation Rate 121 H 0-20 MM/HR Sodium Level 136 136-145 mmol/L Potassium Level 3.6 3.5-5.1 mmol/L Chloride Level 101 101-111 mmol/L Carbon Dioxide Level 30 21-32 mmol/L Blood Urea Nitrogen 14 7-18 mg/dL Creatinine 1.0 0.5-1.3 mg/dL Glomerular Filtration Rate Calc 88 >90 mL/min Random Glucose 253 H 70-105 mg/dL Total Calcium 8.5 8.5-10.1 mg/dL Current Medications Medications (Trade) Dose Ordered Sig/Jl Route PRN Reason Start Time Stop Time Status Last Admin Dose Admin Piperacillin Sod/ Tazobactam Sod (Zosyn 3.375gm+NS 50ml) 3.375 gm Q12H STAT IV 04/13/24 17:26 04/13/24 17:33 DC 04/13/24 20:52 3.375 GM Vancomycin HCl 250 ml @ 125 mls/hr Q12H IV 04/14/24 08:00 04/24/24 07:59 Vancomycin HCl (Vancomycin Protocol) 1 each AD IV 04/13/24 17:26 04/27/24 17:25 DIAGNOSTICS / RADIOLOGY: [ ] ASSESSMENT: Infected right leg cellulitis with abscess POA Peripheral arterial disease POA Uncontrolled diabetes POA Hypertension POA Hyperlipidemia POA Normocytic normochromic anemia POA History of right foot amputation POA History of left great toe amputation POA History of diabetic foot ulcers POA PLAN: We will admit patient in medical surgical floor We will start on heart healthy diet We will continue Zosyn IV and vancomycin IV for broad-spectrum coverage We will start on Famotidine 20 mg p.o. bid for GI prophylaxis We will replace electrolytes as needed per protocol We will start on insulin sliding scale AC & HS with hypoglycemia protocol We will add prn medication for fever,pain,cough and nausea We will reconcile home meds once medlist available We will obtain arterial Doppler study to right lower extremity We will seek Infectious Disease consultation We will seek general surgery consultation We will request labs in am Further orders to follow depending on above results Case discussed with attending physician and came up with above treatment and plan of care. ADVANCED CARE PLANNING 1. Which of the following were discussed? Hospice Care - No Therapeutic options - Yes Advance Directives - No Other discussions - 2. Discussed with who? Patient 3. Voluntary nature of this service was explained to the patient? Yes 4. Amount of time spent - ___20____ 5. Reviewed by Physician? (if this service was performed by NPP) Yes Patient seen and examined by me. Agree with note by ELEMENT[employer] S[employer] MUSIC TEACHER SEE ADDITIONAL ORDERS PER CHART DISCUSSED WITH NURSING STAFF TALA ESTEBAN BINDERY MACHINE FEEDER OFFBEARER Apr 13, 2024 23:00
[2024-04-14] MEDS: ZOSYN 3.375GM+NS 50ML 50 ML IV SCH (01:30)
[2024-04-14 05:53] LABS: BASOPHILS # (AUTO) 0.03 K/uL (0.00-0.20); BASOPHILS % (AUTO) 0.3 % (0.0-5.0); EOSINOPHILS # (AUTO) 0.07 K/uL (0.00-0.70); EOSINOPHILS % (AUTO) 0.6 % (0.0-8.0); HEMATOCRIT 29.3 % (42-54); IMMATURE GRANULOCYTE ABSOLUTE 0.06 K/uL (0-1); LYMPHOCYTES # (AUTO) 1.2 K/uL (1.0-4.8); LYMPHOCYTES % (AUTO) 11.1 % (21.0-51.0); MEAN CORPUSCULAR HEMOGLOBIN 31.2 pg (27.0-33.0); MEAN CORPUSCULAR HGB CONC 33.4 g/dL (32.0-36.0); MEAN CORPUSCULAR VOLUME 93.3 fL (79-99); MONOCYTES # (AUTO) 0.4 K/uL (0.1-1.0); MONOCYTES % (AUTO) 3.7 % (3.0-13.0); NEUTROPHILS # (AUTO) 9.3 K/uL (1.8-7.7); NEUTROPHILS % (AUTO) 83.8 % (40.0-77.0); PLATELET COUNT (AUTO) 372 K/uL (130-400); RED BLOOD CELL COUNT(AUTO) 3.14 MIL/uL (4.50-6.20); RED CELL DISTRIBUTION WIDTH 12.4 % (11.0-15.5); WHITE BLOOD COUNT (AUTO) 11.2 K/uL (4.8-10.8)
[2024-04-14 06:12] LABS: ALBUMIN 2.2 g/dL (3.5-5.0); BILIRUBIN,TOTAL 0.4 mg/dL (0.2-1.0); CREATININE 0.9 mg/dL (0.5-1.3); MAGNESIUM 1.6 mg/dL (1.80-2.40); POTASSIUM 3.5 mmol/L (3.5-5.1); TOTAL PROTEIN, SERUM 7.2 g/dL (6.0-8.3)
[2024-04-14 06:19] LABS: HEMOGLOBIN A1C 11.1 % (4.0-6.0)
--- NOTE | 2024-04-14 07:05 | NUR ---
ASSUMED CARE AT THIS TIME
[2024-04-14 07:16] LABS: ERYTHROCYTE SEDIMENTATION RATE 120 MM/HR (0-20)
[2024-04-14] MEDS: INSULIN humuLIN R 100 UNIT/ML 3ML SQ SCH (07:35)
[2024-04-14] MEDS: morPHINE 2 MG SYG IV PRN (07:40)
[2024-04-14] MEDS: MAGNESIUM 2GM PREMIX 50ML 50 ML IV PRN (07:42)
[2024-04-14] MEDS: FAMOTIDINE 20MG TAB PO SCH (07:43)
[2024-04-14] MEDS: PoTASSium chloRIDE 20MEQ ER 20 MEQ ERTAB PO PRN (07:43)
[2024-04-14] MEDS ORDERED: VANCOMYCIN 1.25 GM/250 ML BAG 250 ML IV SCH (08:00)
--- NOTE | 2024-04-14 08:29 | NUR ---
SPOKE TO DR SPAIN FOR GENERAL SURGERY CONSULT FOR RT LEG WOUND. JAMAR SEE PT NO NEW ORDERS AT THIS TIME
--- NOTE | 2024-04-14 09:07 | HMCIMG ---
US ARTERIAL UNILA LOW EXT DUPL HISTORY: Peripheral artery disease COMPARISON: None TECHNIQUE: Right lower extremity arterial Doppler ultrasound study was performed. FINDINGS: Normal triphasic arterial waveforms are noted in the right common femoral, deep femoral, superficial femoral arteries. Abnormal monophasic arterial waveforms are seen in the right popliteal, anterior tibial,, posterior tibial and dorsalis pedal arteries. There is right inguinal lymph node measuring 4 x 1 x 3 cm. On the right, the peak systolic velocity of the common femoral artery is 103 cm/s, the proximal femoral artery is 99 cm/s, the mid femoral artery is 108 cm/s, the distal femoral artery is 77 cm/s, the popliteal artery is 73 cm/s, the anterior tibial artery is 57 cm/s, the posterior tibial artery artery is 61 cm/s,and the dorsalis pedal artery is 44 cm/s. IMPRESSION: 1. Atherosclerotic disease. 2. Abnormal monophasic arterial waveforms are seen in the right popliteal, anterior tibial,, posterior tibial and dorsalis pedal arteries. There is right inguinal lymph node measuring 4 x 1 x 3 cm.
[2024-04-14] MEDS: VANCOMYCIN 1.25 GM/250 ML BAG 250 ML IV SCH (09:20)
--- NOTE | 2024-04-14 12:09 | PN ---
[facility] PROGRESS NOTE Date of Service: Apr 14, 2024 Time of Service: 12:09 SUBJECTIVE: The patient has been seen and examined during my rounding today, alert oriented x3, he is getting IV antibiotics, BP 150/87, getting good pain control with current medical management, rest of the vital signs unremarkable, afebrile, saturating normal on room air. He denied chest pain, shortness shortness for breath, no nausea, no vomiting. Blood work reviewed, as well as imaging results, discussed with the patient. REVIEW OF SYSTEMS CONSTITUTIONAL: Denies fevers, chills, or night sweats. No unintentional weight loss reported. NEUROLOGICAL: Denies headache, amaurosis fugax, motor weakness, sensory deficit, vertigo/spinning sensation, gait abnormalities, or tremors. ENT: No hearing loss, otalgia, otorrhea, rhinitis, rhinorrhea, hoarseness, or sore throat. CARDIOVASCULAR: Denies any exertional angina, dyspnea on exertion, orthopnea, paroxysmal nocturnal dyspnea, palpitations, life-threatening arrhythmias, claudication. PULMONARY: Denies any shortness of breath, cough, phlegm/sputum, hemoptysis, pleuritic chest pain. SLEEP: Denies morning headaches, daytime somnolence or napping. Denies difficulty falling asleep, staying asleep, waking from sleep. Denies knowledge of snoring. GASTROINTESTINAL: Denies any type of dysphagia to either liquids or solids. Denies nausea, vomiting, pyrosis, early satiety, abdominal pain, diarrhea, constipation, or changes in stool consistency or caliber. Denies coffee-ground emesis, hematemesis, hematochezia, or melanotic stools. GENITOURINARY: Denies frequency, urgency, nocturia, hematuria or incontinence (Storage/Irritative symptoms.) Low urinary stream, straining to void, urinary intermittency or hesitancy, splitting of the voiding stream, terminal dribbling. ENDOCRINOLOGIC: Denies polyuria, polydipsia, polyphagia or heat/cold intolerances. HEMATOLOGIC: Denies thrombophilia/previous clots, or coagulopathy/bleeding disorders. ONCOLOGIC: Denies personal history of malignancy. DERMATOLOGIC: Denies rashes or pruritus. PSYCHIATRIC: Denies any suicidal or homicidal ideation. Denies hallucinations. PHYSICAL EXAM GENERAL APPEARANCE: The patient is awake, alert, and oriented, in no acute cardiopulmonary distress. NEUROLOGICAL: Cranial nerves II-XII grossly intact. Motor is 5/5 in bilateral upper and lower extremities proximal to distal. No sensory deficits. HEENT: Face is symmetric. Pupils are equal and reactive. Extraocular movements are intact. NECK: Supple. No JVD. No thyromegaly. No submental, submandibular, pre- /postauricular, occipital or supraclavicular lymphadenopathy. CHEST: Normal chest expansion. No Telemetry. LUNGS: Absence of any rales, rhonchi or any wheezing. CARDIOVASCULAR: Regular. S1 and S2 normal. No appreciable rubs, murmurs or gallops. ABDOMEN: Soft, nontender, and nondistended. There is no rebound, voluntary guarding, or rigidity. : Deferred. No Abrams. EXTREMITIES: Non-edematous and not cyanotic. No clubbing. Good capillary refill. SKIN: No skin breakdown. Vital Signs (last 8hr) Date Time Temp Pulse Resp B/P (MAP) Pulse Ox O2 Delivery O2 Flow Rate FiO2 04/14/24 10:22 98.4 90 18 154/91 98 Room Air* 0 21 04/14/24 06:19 98.4 96 18 148/81 99 Room Air* 0 21 LABS: Laboratory: Test 04/14/24 11:50 04/14/24 05:46 Range/Units Whole Blood Glucose 214 H 70-110 MG/DL White Blood Count 11.2 H 4.8-10.8 K/uL Red Blood Count 3.14 L 4.50-6.20 MIL/uL Hemoglobin 9.8 L 14.0-18.0 g/dL Hematocrit 29.3 L 42-54 % Mean Corpuscular Volume 93.3 79-99 fL Mean Corpuscular Hemoglobin 31.2 27.0-33.0 pg Mean Corpuscular Hemoglobin Concent 33.4 32.0-36.0 g/dL Red Cell Distribution Width 12.4 11.0-15.5 % Platelet Count 372 130-400 K/uL Mean Platelet Volume 9.5 7.5-10.5 fL Immature Granulocyte % (Auto) 0.5 0-1 % Neutrophils (%) (Auto) 83.8 H 40.0-77.0 % Lymphocytes (%) (Auto) 11.1 L 21.0-51.0 % Monocytes (%) (Auto) 3.7 3.0-13.0 % Eosinophils (%) (Auto) 0.6 0.0-8.0 % Basophils (%) (Auto) 0.3 0.0-5.0 % Neutrophils # (Auto) 9.3 H 1.8-7.7 K/uL Lymphocytes # (Auto) 1.2 1.0-4.8 K/uL Monocytes # (Auto) 0.4 0.1-1.0 K/uL Eosinophils # (Auto) 0.07 0.00-0.70 K/uL Basophils # (Auto) 0.03 0.00-0.20 K/uL Absolute Immature Granulocyte (auto 0.06 0-1 K/uL Nucleated Red Blood Cells 0.0 0.0-0.19 % Erythrocyte Sedimentation Rate 120 H 0-20 MM/HR Sodium Level 138 136-145 mmol/L Potassium Level 3.5 3.5-5.1 mmol/L Chloride Level 104 101-111 mmol/L Carbon Dioxide Level 26 21-32 mmol/L Blood Urea Nitrogen 11 7-18 mg/dL Creatinine 0.9 0.5-1.3 mg/dL Glomerular Filtration Rate Calc 100 >90 mL/min Random Glucose 190 H 70-105 mg/dL Hemoglobin A1c 11.1 H 4.0-6.0 % Estimated Average Glucose (eAG) 272 H 70-126 mg/dL Total Calcium 8.0 L 8.5-10.1 mg/dL Magnesium Level 1.60 L 1.80-2.40 mg/dL Total Bilirubin 0.4 0.2-1.0 mg/dL Aspartate Amino Transf (AST/SGOT) 15 10-37 U/L Alanine Aminotransferase (ALT/SGPT) 10 L 12-78 U/L Alkaline Phosphatase 84 50-136 U/L Total Protein 7.2 6.0-8.3 g/dL Albumin 2.2 L 3.5-5.0 g/dL Triglycerides Level 108 30-200 mg/dL Cholesterol Level 112 <200 mg/dL LDL Cholesterol 70 0-99 mg/dL HDL Cholesterol 29 29-71 mg/dL Current Medications Medications (Trade) Dose Ordered Sig/Jl Route PRN Reason Start Time Stop Time Status Last Admin Dose Admin Dextrose (D50w) 50 ml AD PRN IV HYPOGLYCEMIA PROTOCOL 04/13/24 23:00 05/13/24 22:59 Famotidine (Pepcid 20mg Tab) 20 mg BID PO 04/14/24 09:00 05/14/24 08:59 04/14/24 07:43 20 MG Glucagon (Glucagon 1mg Kit) 1 mg AD PRN IM HYPOGLYCEMIA PROTOCOL 04/13/24 23:00 05/13/24 22:59 Hydralazine HCl (APRESOLine 20MG INJ) 10 mg Q6H PRN IV For:SBP above 160;DBP above 90 04/13/24 23:00 05/13/24 22:59 Insulin Human Regular (humuLIN R 100 UNIT/ML 3ML) INSULIN SLIDING SCAL... ACHS SQ 04/14/24 07:30 05/14/24 07:29 04/14/24 12:03 3 UNIT Magnesium Sulfate 50 ml @ 0 mls/hr PROTOCOL PRN IV OTHER [SEE ORDER COMMENTS] 04/13/24 23:00 05/13/24 22:59 04/14/24 07:42 25 MLS/HR Morphine Sulfate (morPHINE 2MG SYG) 2 mg Q4H PRN IV MODERATE PAIN (4-6) 04/13/24 23:00 04/20/24 22:59 04/14/24 12:03 2 MG Ondansetron HCl (zoFRAN 4MG INJ) 4 mg Q6H PRN IV NAUSEA/VOMITING 04/13/24 23:00 05/13/24 22:59 Piperacillin Sod/ Tazobactam Sod 50 ml @ 12.5 mls/hr Q8H IV 04/14/24 01:30 04/24/24 01:29 04/14/24 11:47 12.5 MLS/HR Piperacillin Sod/ Tazobactam Sod (Zosyn 3.375gm+NS 50ml) 3.375 gm Q12H STAT IV 04/13/24 17:26 04/13/24 17:33 DC 04/13/24 20:52 3.375 GM Potassium Chloride 100 ml @ 100 mls/hr AD PRN IV POTASSIUM PROTOCOL 04/13/24 23:00 05/13/24 22:59 Potassium Chloride (K-Dur/Klor-Con 20meq) 20 meq AD PRN PO POTASSIUM PROTOCOL 04/13/24 23:00 1/1/25 22:59 04/14/24 10:04 20 MEQ Potassium Chloride (KCl 10% Elixir 20meq/15ml) 20 meq AD PRN PO POTASSIUM PROTOCOL 04/13/24 23:00 05/13/24 22:59 Vancomycin HCl 250 ml @ 125 mls/hr ONCE IV 04/13/24 23:00 04/13/24 23:06 DC Vancomycin HCl 250 ml @ 125 mls/hr Q12H IV 04/14/24 08:00 04/14/24 09:03 DC Vancomycin HCl 250 ml @ 125 mls/hr Q12H IV 04/14/24 09:30 04/24/24 09:29 04/14/24 09:20 125 MLS/HR Vancomycin HCl (Vancomycin Protocol) 1 each AD IV 04/13/24 17:26 04/27/24 17:25 DIAGNOSTICS / RADIOLOGY: [ ] ASSESSMENT: Infected right leg cellulitis with abscess POA Peripheral arterial disease POA Uncontrolled diabetes POA Hypertension POA Hyperlipidemia POA Normocytic normochromic anemia POA History of right foot amputation POA History of left great toe amputation POA History of diabetic foot ulcers POA PLAN: Patient to be admitted to the medical-surgical floor Continue cardiac diet Continue broad-spectrum IV antibiotics Infectious disease consultation requested, follow input and recommendation Surgical consultation requested, follow input and recommendation We will order MRI of the right foot rule out osteomyelitis Continue on Famotidine 20 mg p.o. bid for GI prophylaxis We will replace electrolytes as needed per protocol We will continue on insulin sliding scale AC & HS with hypoglycemia protocol We will add prn medication for fever,pain,cough and nausea We will reconcile home meds once medlist available Arterial Doppler with finding of atherosclerotic disease as well as peripheral vascular disease Replace electrolytes IV per protocol We will request labs in am Further orders to follow depending on above results Plan of action discussed with the patient, all questions answered, agreed and understood the information provided. JANNET BLAKELY MD Apr 14, 2024 12:09
--- NOTE | 2024-04-14 12:41 | NUR ---
DR BLAKELY AT BEDSIDE FOR EVALUATION. PT AOX4
[2024-04-14] MEDS: PoTASSium chloRIDE 20MEQ ER 20 MEQ ERTAB PO ONE (12:54)
[2024-04-14] MEDS ORDERED: MAGNESIUM 2GM PREMIX 50ML 50 ML IV SCH (13:00)
--- NOTE | 2024-04-14 14:00 | NUR ---
DCP: HOME Sw met with pt who states he lives in a small apt with his girlfriend Richelle Nichols [phone] and his daughter Shirley. Pt states the [facility] apts are not handicapped equipped inside or out. Pt not willing to make report because he fears retaliation. Pt states inside apt, w/c does not fit, therefore he uses a office chair to get around his home. Pt has a walker, w/c. Pt has no HH or HD services. PCP is Yoli Grossman and uses [facility] for rx. Pt states Dr Grossman sent him in for foot ulcer to be debrided. Pt not sure what dc needs will be, but he prefers to go home at tn. CM to follow and assist as needed Addendum: 04/14/24 at 1422 by RAEANN LAGOS Amended: Links added.
[2024-04-14 15:27] VITALS: O2SAT 98
[2024-04-14 16:00] VITALS: BP 138/68; PULSE 115; RESP 19; TEMP 98.7
[2024-04-14 20:11] VITALS: O2SAT 97
[2024-04-14 20:34] VITALS: BP 156/98; PULSE 128; RESP 20; TEMP 98.4
--- NOTE | 2024-04-14 21:00 | CONS ---
CONSULT NOTE: Consulting Doctor Reason for consult Right leg abscess/wound evaluation HPI PAST MEDICAL HISTORY: Hypertension Hyperlipidemia Right internal Carotid artery stenosis Diabetes TIA on April 01, 2023 Right foot gangrene PAST SURGICAL HISTORY: Right foot amputation 03/01/[address] Godfrey Left big toe amputation 06/01/2022 PAST SOCIAL HISTORY: Patient lives alone. Patient admits to drinking beer 12 per day last consumption this afternoon. Patient denies cigarette and recreational drug use. FAMILY HISTORY: Hypertension Diabetes Asthma Cancer Coded Allergies: No Known Allergies (Verified Allergy, Severe, 02/17/15) REVIEW OF SYSTEMS CONSTITUTIONAL: Denies fevers, chills, or night sweats. No unintentional weight loss reported. NEUROLOGICAL: Denies headache, amaurosis fugax, motor weakness, sensory deficit, vertigo/spinning sensation, gait abnormalities, or tremors. ENT: No hearing loss, otalgia, otorrhea, rhinitis, rhinorrhea, hoarseness, or sore throat. CARDIOVASCULAR: Denies any exertional angina, dyspnea on exertion, orthopnea, paroxysmal nocturnal dyspnea, palpitations, life-threatening arrhythmias, claudication. PULMONARY: Denies any shortness of breath, cough, phlegm/sputum, hemoptysis, p leuritic chest pain. SLEEP: Denies morning headaches, daytime somnolence or napping. Denies difficulty falling asleep, staying asleep, waking from sleep. Denies knowledge of snoring. GASTROINTESTINAL: Denies any type of dysphagia to either liquids or solids. Denies nausea, vomiting, pyrosis, early satiety, abdominal pain, diarrhea, constipation, or changes in stool consistency or caliber. Denies coffee-ground emesis, hematemesis, hematochezia, or melanotic stools. GENITOURINARY: Denies frequency, urgency, nocturia, hematuria or incontinence (Storage/Irritative symptoms.) Low urinary stream, straining to void, urinary intermittency or hesitancy, splitting of the voiding stream, terminal dribbling. ENDOCRINOLOGIC: Denies polyuria, polydipsia, polyphagia or heat/cold intoler ances. HEMATOLOGIC: Denies thrombophilia/previous clots, or coagulopathy/bleeding disorders. ONCOLOGIC: Denies personal history of malignancy. DERMATOLOGIC: Denies rashes or pruritus. PSYCHIATRIC: Denies any suicidal or homicidal ideation. Denies hallucinations. PHYSICAL EXAM GENERAL APPEARANCE: The patient is awake, alert, and oriented, in no acute cardiopulmonary distress. NEUROLOGICAL: Cranial nerves II-XII grossly intact. Motor is 5/5 in bilateral upper and lower extremities proximal to distal. No sensory deficits. HEENT: Face is symmetric. Pupils are equal and reactive. Extraocular movements are intact. NECK: Supple. No JVD. No thyromegaly. No submental, submandibular, pre- /postauricular, occipital or supraclavicular lymphadenopathy. CHEST: Normal chest expansion. No Telemetry. LUNGS: Absence of any rales, rhonchi or any wheezing. CARDIOVASCULAR: Regular. S1 and S2 normal. No appreciable rubs, murmurs or gallops. ABDOMEN: Soft, nontender, and nondistended. There is no rebound, voluntary guarding, or rigidity. : Deferred. No Abrams. EXTREMITIES: Non-edematous and not cyanotic. No clubbing. Good capillary refill. SKIN: No skin breakdown. FELECIA VILA Jr. Apr 14, 2024 21:00
[2024-04-14] MEDS: metoPROLOL tartRATE 25 MG TAB PO SCH (21:06)
[2024-04-14] MEDS: atorVAStatin 40 MG TABLET PO SCH (21:06)
--- NOTE | 2024-04-14 21:20 | CONS ---
DATE OF SERVICE: 04/14/2024. INFECTIOUS DISEASE CONSULTATION NOTE REQUESTING PHYSICIAN: Clarisse Francis NP REASON FOR CONSULTATION: Right leg ulcer and possible stump osteomyelitis. HISTORY OF PRESENT ILLNESS: This is a 59-year-old male with history of diabetes mellitus, hypertension, and dyslipidemia, presented to the hospital with right lower leg ulcer. The patient denies sharp trauma or fall. The patient also complained of some fever and chills. No chest pain, no palpitation or orthopnea. X-ray of the right tibia and fibula was unremarkable. Arterial Doppler shows abnormal monophasic flow. The patient is started on vancomycin and Zosyn. PAST MEDICAL HISTORY: * Diabetes mellitus. * Hypertension. * Dyslipidemia. * Right internal carotid artery stenosis. * TIA. * Osteomyelitis. * Peripheral vascular disease. PAST SURGICAL HISTORY: * Right foot Chopart amputation. * Left great toe amputation. ALLERGIES: No known drug allergy. CURRENT MEDICATIONS: Reviewed. SOCIAL HISTORY: No alcohol, tobacco or illicit drug use. FAMILY HISTORY: Noncontributory. REVIEW OF SYSTEMS: CONSTITUTIONAL: No chills, no weight loss or night sweats. EYES: No eye pain, no photophobia or diplopia. HENT: No sore throat, no rhinorrhea or earache. NECK: No neck pain or neck swelling. RESPIRATORY: No cough, no hemoptysis or pleuritic pain. CARDIOVASCULAR: No chest pain, no palpitation or orthopnea. GASTROINTESTINAL: Denied nausea, vomiting, or abdominal pain. GENITOURINARY: No dysuria, urgency, or urinary frequency. CENTRAL NERVOUS SYSTEM: No headache, dyspnea, or slurred speech. PSYCHIATRY: No depression. No suicidal ideation. MUSCULOSKELETAL: No joint pain or joint swelling. PHYSICAL EXAMINATION: GENERAL: A middle-aged male, awake. VITAL SIGNS: Temperature 98.4, pulse 90, respiratory rate 20, and BP ____. EYES: No icterus. Pupils equal and reactive. HENT: No oral thrush seen. Moist oral mucosa. NECK: Supple, no JVD or thyromegaly. LUNGS: Good air entry. No rales, no rhonchi. CARDIOVASCULAR: S1, S2 regular. No murmur heard. ABDOMEN: Full, soft, and nontender. Bowel sounds present. CENTRAL NERVOUS SYSTEM: Awake, alert, and oriented x 3. No focal deficits. SKIN: No rashes, no itchiness. LYMPHATIC: Left inguinal lymphadenopathy. BACK: No deformity, no pressure ulcer. EXTREMITIES: Ulcer involving plantar aspect of the right foot stump. There is purulent drainage. Ulcer with necrosis involving lateral aspect of the right mid leg. LABORATORY DATA: Sodium 138, potassium 3.5, BUN 11, and creatinine 0.9. WBC 11.3, hemoglobin 9.8, and platelet 272. RADIOLOGY: X-ray of the right tibia and fibula unremarkable. Arterial Doppler shows abnormal monophasic flow. ASSESSMENT: A 59-year-old male presenting with right foot pain, swelling, and redness. CURRENT PROBLEMS: Include: * Possible right foot stump osteomyelitis. * Diabetic foot ulcer. * Right lower leg ulcer. * Peripheral vascular disease. * Hypertension. * Debility. PLAN: * Obtain MRI of the right foot. * Continue Zosyn. * Continue vancomycin. * The patient will need podiatry evaluation. * Follow up culture. * Continue pain management. * Continue antidiabetic. * The patient will need ____ evaluation of circulation. TID: [id number] RECEIPT: [id number]
--- NOTE | 2024-04-14 23:37 | CONS ---
HISTORY OF PRESENT ILLNESS: The patient is a 59-year-old, diabetic, [place] male who presented to the hospital with an ulceration to the plantar aspect of his rearfoot amputation on the right, cellulitis, came into the Emergency Room for left lower extremity cellulitis. He is status post rearfoot amputation on the right. He has history of heart disease, peripheral vascular disease, hypertension, and diabetes, came into the ER to check on a wound to his right foot. He has not been following up with his primary fine hairer, Dr. Aroldo Godfrey. The patient states he had been using Medihoney to the wound until he ran out of the Medihoney. His primary care physician is Dr. Arevalo. Dr. Arevalo saw the patient, told him his foot was infected, and he recommended that he come to the hospital for further evaluation. PAST MEDICAL HISTORY: Significant for rearfoot amputation on the right, performed by Dr. Godfrey. He is being followed by Dr. Rm. The patient admits to drinking twelve beers per day. He has hypertension, hyperlipidemia, right internal carotid artery stenosis, diabetes, history of TIA, history of right foot gangrene, and history of right lower extremity peripheral vascular disease. The x-rays of his lower extremity do not show the most plantar aspect of the right foot. I will order 3 views of his right foot to further evaluate the area of his ulcer which is a plantar heel on the right side. FAMILY HISTORY: Hypertension, diabetes, asthma, and cancer. ALLERGIES: He has no known drug allergies. MEDICATIONS: He is currently receiving IV vancomycin and IV Zosyn. REVIEW OF SYSTEMS: CONSTITUTIONAL: No chills, no fevers, no night sweats, no nausea or vomiting, no diarrhea. HEENT: No problems with eyes, ears, nose, or throat. CARDIOVASCULAR: Having no current chest pain. RESPIRATORY: No shortness of breath. GENITOURINARY: No dysuria. GASTROINTESTINAL: No dysphagia. ENDOCRINE: Diabetes. PSYCHIATRIC: Denied any depression. CARDIOLOGY: He has abnormal monophasic waveforms in the right popliteal, anterior tibial, and posterior tibial arteries. PHYSICAL EXAMINATION: Today, his foot is warm. I could not palpate his pedal pulses on the right. 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 He has a first toe amputation on the left. He has elongated, thickened, brittle, gryphotic toenails x4 on the left. He has a fibrotic ulcer 15 x 15 x 15 to the plantar and lateral aspect of the right heel with foul smell. No consolidated abscess. No exposed bone. Mild edema, mild erythema, and mild associated cellulitis. He has cat hair in the wound base of his ulcer to the right heel. LABORATORY DATA: Blood cultures are showing no growth. He has a BUN and a creatinine level of 11 and 0.9. Hemoglobin A1c of 11.1. Mean blood sugar 272. ASSESSMENT: Severe peripheral vascular disease to the right lower extremity, suspected chronic osteomyelitis to the right heel. The patient is receiving IV vancomycin and IV Zosyn. MRI and x-rays of the right heel are pending. The patient is status post amputation of the right foot at the rearfoot level and the left big toe. The patient is with onychomycosis and onychogryphosis. The patient admits to drinking 12 beers per day. PLAN: I cultured his wound. I dressed it with Medihoney and Hydrofera Blue. We will continue with the vancomycin and the Zosyn. I will order x-rays, 3 views of the right foot and an MRI of the right foot without contrast. He has severe peripheral vascular disease and I feel a consult with Cardiology is warranted. He will remain nonweightbearing status on the right foot. We will evaluate the patient for right lower extremity osteomyelitis with the MRI and the x-rays. The patient has currently been afebrile. He has a white count of 11.2. H and H 9.8 and 29.3. The patient has a sed rate of 120 and neutrophils 83.8. We will continue to follow the patient closely while in-house. TID: [id number] RECEIPT: [id number]
--- NOTE | 2024-04-14 23:46 | HMCIMG ---
FOOT COMP 3+VWS RT HISTORY: Right leg cellulitis COMPARISON: None TECHNIQUE: 3 images of right foot were obtained. FINDINGS: Transtarsal amputation is noted. There is a calcaneal spur. Vascular calcifications are seen. There is no acute displaced fracture or dislocation. There is soft tissue swelling. Evaluation for osteomyelitis is limited with radiographs. Degenerative changes are seen. IMPRESSION: 1. Findings as described above.
[2024-04-15] VITALS (8 sets, daily range): BP systolic 119–165; BP diastolic 68–93; PULSE 93–109; RESP 17–20; TEMP 97.3–99.7; O2SAT 92–96
[2024-04-15 04:03] LABS: HEMATOCRIT 25.1 % (42-54); MEAN CORPUSCULAR HEMOGLOBIN 31.5 pg (27.0-33.0); MEAN CORPUSCULAR HGB CONC 33.5 g/dL (32.0-36.0); RED BLOOD CELL COUNT(AUTO) 2.67 MIL/uL (4.50-6.20); RED CELL DISTRIBUTION WIDTH 12.5 % (11.0-15.5); WHITE BLOOD COUNT (AUTO) 11.1 K/uL (4.8-10.8)
[2024-04-15 04:33] LABS: ALBUMIN 1.6 g/dL (3.5-5.0); BILIRUBIN,TOTAL 0.6 mg/dL (0.2-1.0); CREATININE 1.1 mg/dL (0.5-1.3); MAGNESIUM 1.8 mg/dL (1.80-2.40); POTASSIUM 3.8 mmol/L (3.5-5.1); TOTAL PROTEIN, SERUM 6.3 g/dL (6.0-8.3)
[2024-04-15] MEDS ORDERED: COMPOUND IV REFRIGERATED 1 EACH IVSOLN MISC PRN (07:30)
[2024-04-15] MEDS ORDERED: COMPOUND IV MISC 1 EACH IVSOLN MISC PRN (07:30)
--- NOTE | 2024-04-15 07:39 | PN ---
SUBJECTIVE: The patient is a 59-year-old male with history of diabetes and peripheral vascular disease, status post Chopart's amputation on the right, currently being followed for right heel ulcer, status post great toe amputation on the left. T-max 99.7, pulse 107, respiration 18, blood pressure 136/84. Wound cultures are pending to the right heel. X-rays and MRI are pending to the right heel. The patient is currently receiving IV vancomycin and Zosyn. The patient has had abnormal arterial Doppler studies showing monophasic waveforms in the right popliteal, anterior tibial, posterior tibial on the right side. The patient's right foot x-rays have shown that there is no gas in the soft tissues, no osseous destructive changes, heavily calcified arteries. He has had an amputation of all bones of the foot with the exception of the calcaneus and the talus. He has a past medical history significant for a rearfoot amputation on the right, first toe amputation on the right, being followed by Dr. Rm for IV antibiotics, currently the vancomycin and the Zosyn. He is receiving Medihoney dressings to the right heel. PAST MEDICAL HISTORY: He has a past medical history of drinking 12 beers a day, hypertension, hyperlipidemia, peripheral vascular disease, right internal carotid artery stenosis, diabetes, history of TIA, history of right foot gangrene, history of right lower extremity peripheral vascular disease. REVIEW OF SYSTEMS: CONSTITUTIONAL: Having currently no chills. T-max 99.7. No nausea, no vomiting, no diarrhea. He is having no pain to the right heel. HEENT: No problems with eyes, ears, nose or throat. CARDIOVASCULAR: He has known peripheral vascular disease, history of carotid artery disease, hypertension. RESPIRATORY: No shortness of breath. GENITOURINARY: No dysuria. GASTROINTESTINAL: No dysphagia. ENDOCRINE: Diabetes. PSYCHIATRIC: Denies any depression. INTEGUMENT: He has an ulcer to the heel 15 x 15 x 15 mm with a mixed granular fibrotic base. OBJECTIVE: On examination today, his feet are warm, and I cannot palpate his pedal pulse. He has a rearfoot amputation on the right, first toe amputation on the left. Elongated thickened, brittle, gryphotic toenails x 4 on the left. Fibrotic ulcer to the right heel 15 x 15 x 15 to the plantar aspect of the right heel with foul smell, edema, erythema, and associated cellulitis. No exposed bone. Fibrotic wound base. Mild edema and erythema. ASSESSMENT: Severe peripheral vascular disease to the right lower extremity per arterial Doppler studies, suspect osteomyelitis of the right heel, pending results of the MRI. The patient is receiving IV vancomycin and Zosyn. The patient with onychomycosis and onychogryphosis x 4 on the left. The patient admits to drinking 12 beers a day. PLAN: I will await further results of his wound cultures. Continue with the vancomycin and the Zosyn. We will begin Medihoney dressings to the right heel. Await the results of his MRI. Today, I debrided his toenails extensively, reducing the length and girth. The pink healthy tissue removed subungual debris x 4 with a nail clipper and dermal curette without incidence. We will continue to follow the patient closely while in-house. Awaiting results of the MRI to evaluate the patient for the possibility of osteomyelitis. He has severe peripheral vascular disease, right lower extremity per the arterial Doppler studies. Awaiting the results of his wound cultures. Continue with the vancomycin and the Zosyn. Nonweightbearing status to the right foot. TID: [id number] RECEIPT: [id number]
[2024-04-15] MEDS: ASPIRIN 81 MG EC TAB PO SCH (10:06)
[2024-04-15] MEDS: HONEY 1 APPL/ML TUBE TP SCH (10:06)
--- NOTE | 2024-04-15 10:17 | HMCIMG ---
MR FOOT RIGHT WO HISTORY: Cellulitis COMPARISON: None TECHNIQUE: MRI of the right foot was performed utilizing multiple pulse sequences in axial, coronal and sagittal planes. Patient was not given contrast through intravenous route. FINDINGS: Abnormal increased signal intensity is seen involving the anterior aspect of the calcaneus. Findings are suspicious for osteomyelitis in the proper clinical setting. Abnormal signal intensity is also seen involving the tissue at medial aspect of the calcaneus. This may be related to myositis/cellulitis. No rupture of the Achilles tendon is seen. IMPRESSION: 1. Findings suspicious for osteomyelitis involving the anterior aspect of the calcaneus with adjacent cellulitis/myositis changes.
--- NOTE | 2024-04-15 10:50 | PN ---
[facility] PROGRESS NOTE Date of Service: Apr 15, 2024 Time of Service: 10:50 SUBJECTIVE: The patient has been seen and examined during my rounding today, alert oriented x3, he is getting IV antibiotics, BP 150/87, getting good pain control with current medical management, rest of the vital signs unremarkable, afebrile, saturating normal on room air. He denied chest pain, shortness shortness for breath, no nausea, no vomiting. Blood work reviewed, as well as imaging results, discussed with the patient. REVIEW OF SYSTEMS CONSTITUTIONAL: Denies fevers, chills, or night sweats. No unintentional weight loss reported. NEUROLOGICAL: Denies headache, amaurosis fugax, motor weakness, sensory deficit, vertigo/spinning sensation, gait abnormalities, or tremors. ENT: No hearing loss, otalgia, otorrhea, rhinitis, rhinorrhea, hoarseness, or sore throat. CARDIOVASCULAR: Denies any exertional angina, dyspnea on exertion, orthopnea, paroxysmal nocturnal dyspnea, palpitations, life-threatening arrhythmias, claudication. PULMONARY: Denies any shortness of breath, cough, phlegm/sputum, hemoptysis, pleuritic chest pain. SLEEP: Denies morning headaches, daytime somnolence or napping. Denies difficulty falling asleep, staying asleep, waking from sleep. Denies knowledge of snoring. GASTROINTESTINAL: Denies any type of dysphagia to either liquids or solids. Denies nausea, vomiting, pyrosis, early satiety, abdominal pain, diarrhea, constipation, or changes in stool consistency or caliber. Denies coffee-ground emesis, hematemesis, hematochezia, or melanotic stools. GENITOURINARY: Denies frequency, urgency, nocturia, hematuria or incontinence (Storage/Irritative symptoms.) Low urinary stream, straining to void, urinary intermittency or hesitancy, splitting of the voiding stream, terminal dribbling. ENDOCRINOLOGIC: Denies polyuria, polydipsia, polyphagia or heat/cold intolerances. HEMATOLOGIC: Denies thrombophilia/previous clots, or coagulopathy/bleeding disorders. ONCOLOGIC: Denies personal history of malignancy. DERMATOLOGIC: Denies rashes or pruritus. PSYCHIATRIC: Denies any suicidal or homicidal ideation. Denies hallucinations. PHYSICAL EXAM GENERAL APPEARANCE: The patient is awake, alert, and oriented, in no acute cardiopulmonary distress. NEUROLOGICAL: Cranial nerves II-XII grossly intact. Motor is 5/5 in bilateral upper and lower extremities proximal to distal. No sensory deficits. HEENT: Face is symmetric. Pupils are equal and reactive. Extraocular movements are intact. NECK: Supple. No JVD. No thyromegaly. No submental, submandibular, pre- /postauricular, occipital or supraclavicular lymphadenopathy. CHEST: Normal chest expansion. No Telemetry. LUNGS: Absence of any rales, rhonchi or any wheezing. CARDIOVASCULAR: Regular. S1 and S2 normal. No appreciable rubs, murmurs or gallops. ABDOMEN: Soft, nontender, and nondistended. There is no rebound, voluntary guarding, or rigidity. : Deferred. No Abrams. EXTREMITIES: Non-edematous and not cyanotic. No clubbing. Good capillary refill. SKIN: No skin breakdown. Vital Signs (last 8hr) Date Time Temp Pulse Resp B/P (MAP) Pulse Ox O2 Delivery O2 Flow Rate FiO2 04/15/24 08:00 98.4 109 18 145/90 92 Room Air 21 04/15/24 04:02 98.8 93 17 119/68 90 Room Air LABS: Laboratory: Test 04/15/24 06:46 04/15/24 05:26 04/15/24 03:33 04/14/24 05:46 Range/Units Vancomycin Level Trough 21.6 #H 10.0-20.0 UG/ML Whole Blood Glucose 145 H 70-110 MG/DL Bedside Glucose Comment Notified Nurse White Blood Count 11.1 H 4.8-10.8 K/uL Red Blood Count 2.67 L 4.50-6.20 MIL/uL Hemoglobin 8.4 L 14.0-18.0 g/dL Hematocrit 25.1 L 42-54 % Mean Corpuscular Volume 94.0 79-99 fL Mean Corpuscular Hemoglobin 31.5 27.0-33.0 pg Mean Corpuscular Hemoglobin Concent 33.5 32.0-36.0 g/dL Red Cell Distribution Width 12.5 11.0-15.5 % Platelet Count 345 130-400 K/uL Mean Platelet Volume 9.9 7.5-10.5 fL Nucleated Red Blood Cells 0.0 0.0-0.19 % Sodium Level 136 136-145 mmol/L Potassium Level 3.8 3.5-5.1 mmol/L Chloride Level 105 101-111 mmol/L Carbon Dioxide Level 27 21-32 mmol/L Blood Urea Nitrogen 14 7-18 mg/dL Creatinine 1.1 0.5-1.3 mg/dL Glomerular Filtration Rate Calc 78 >90 mL/min Random Glucose 128 H 70-105 mg/dL Total Calcium 8.0 L 8.5-10.1 mg/dL Magnesium Level 1.80 1.80-2.40 mg/dL Total Bilirubin 0.6 # 0.2-1.0 mg/dL Aspartate Amino Transf (AST/SGOT) 13 10-37 U/L Alanine Aminotransferase (ALT/SGPT) 9 L 12-78 U/L Alkaline Phosphatase 64 50-136 U/L Total Protein 6.3 6.0-8.3 g/dL Albumin 1.6 #L 3.5-5.0 g/dL Immature Granulocyte % (Auto) 0.5 0-1 % Neutrophils (%) (Auto) 83.8 H 40.0-77.0 % Lymphocytes (%) (Auto) 11.1 L 21.0-51.0 % Monocytes (%) (Auto) 3.7 3.0-13.0 % Eosinophils (%) (Auto) 0.6 0.0-8.0 % Basophils (%) (Auto) 0.3 0.0-5.0 % Neutrophils # (Auto) 9.3 H 1.8-7.7 K/uL Lymphocytes # (Auto) 1.2 1.0-4.8 K/uL Monocytes # (Auto) 0.4 0.1-1.0 K/uL Eosinophils # (Auto) 0.07 0.00-0.70 K/uL Basophils # (Auto) 0.03 0.00-0.20 K/uL Absolute Immature Granulocyte (auto 0.06 0-1 K/uL Erythrocyte Sedimentation Rate 120 H 0-20 MM/HR Hemoglobin A1c 11.1 H 4.0-6.0 % Estimated Average Glucose (eAG) 272 H 70-126 mg/dL Triglycerides Level 108 30-200 mg/dL Cholesterol Level 112 <200 mg/dL LDL Cholesterol 70 0-99 mg/dL HDL Cholesterol 29 29-71 mg/dL Current Medications Medications (Trade) Dose Ordered Sig/Jl Route PRN Reason Start Time Stop Time Status Last Admin Dose Admin Aspirin (Aspirin 81mg Ec Tab) 81 mg DAILY PO 04/15/24 09:00 05/15/24 08:59 04/15/24 10:06 81 MG Atorvastatin Calcium (LIPItor 40MG) 40 mg HS PO 04/14/24 21:00 05/14/24 20:59 04/14/24 21:06 40 MG Dextrose (D50w) 50 ml AD PRN IV HYPOGLYCEMIA PROTOCOL 04/13/24 23:00 05/13/24 22:59 Famotidine (Pepcid 20mg Tab) 20 mg BID PO 04/14/24 09:00 05/14/24 08:59 04/15/24 10:06 20 MG Glucagon (Glucagon 1mg Kit) 1 mg AD PRN IM HYPOGLYCEMIA PROTOCOL 04/13/24 23:00 05/13/24 22:59 Hydralazine HCl (APRESOLine 20MG INJ) 10 mg Q6H PRN IV For:SBP above 160;DBP above 90 04/13/24 23:00 05/13/24 22:59 Insulin Human Regular (humuLIN R 100 UNIT/ML 3ML) INSULIN SLIDING SCAL... ACHS SQ 04/14/24 07:30 05/14/24 07:29 04/14/24 21:08 3 UNIT Leptospermum Honey (Konteraney) 1 appl DAILY TP 04/15/24 09:00 05/15/24 08:59 04/15/24 10:06 1 APPL Magnesium Sulfate 50 ml @ 0 mls/hr PROTOCOL IV 04/14/24 13:00 04/14/24 12:35 DC Magnesium Sulfate 50 ml @ 0 mls/hr PROTOCOL PRN IV OTHER [SEE ORDER COMMENTS] 04/13/24 23:00 05/13/24 22:59 04/14/24 07:42 25 MLS/HR Metoprolol Tartrate (loprESSOR) 12.5 mg BID PO 04/14/24 21:00 05/14/24 20:59 04/15/24 10:06 12.5 MG Morphine Sulfate (morPHINE 2MG SYG) 2 mg Q4H PRN IV MODERATE PAIN (4-6) 04/13/24 23:00 04/20/24 22:59 04/15/24 10:26 2 MG Ondansetron HCl (zoFRAN 4MG INJ) 4 mg Q6H PRN IV NAUSEA/VOMITING 04/13/24 23:00 05/13/24 22:59 Piperacillin Sod/ Tazobactam Sod 50 ml @ 12.5 mls/hr Q8H IV 04/14/24 01:30 04/24/24 01:29 04/15/24 10:06 12.5 MLS/HR Piperacillin Sod/ Tazobactam Sod (Zosyn 3.375gm+NS 50ml) 3.375 gm Q12H STAT IV 04/13/24 17:26 04/13/24 17:33 DC 04/13/24 20:52 3.375 GM Potassium Chloride 100 ml @ 100 mls/hr AD PRN IV POTASSIUM PROTOCOL 04/13/24 23:00 05/13/24 22:59 Potassium Chloride (K-Dur/Klor-Con 20meq) 20 meq AD PRN PO POTASSIUM PROTOCOL 04/13/24 23:00 05/13/24 22:59 04/14/24 10:04 20 MEQ Potassium Chloride (KCl 10% Elixir 20meq/15ml) 20 meq AD PRN PO POTASSIUM PROTOCOL 04/13/24 23:00 05/13/24 22:59 Vancomycin HCl 250 ml @ 125 mls/hr ONCE IV 04/13/24 23:00 04/13/24 23:06 DC Vancomycin HCl 250 ml @ 125 mls/hr Q12H IV 04/14/24 08:00 04/14/24 09:03 DC Vancomycin HCl 250 ml @ 125 mls/hr Q12H IV 04/14/24 09:30 04/15/24 09:16 DC 04/14/24 21:52 125 MLS/HR Vancomycin HCl 250 ml @ 125 mls/hr Q12H IV 04/15/24 21:30 04/24/24 09:29 Vancomycin HCl (Vancomycin Protocol) 1 each AD IV 04/13/24 17:26 04/27/24 17:25 DIAGNOSTICS / RADIOLOGY: [ ] ASSESSMENT: Infected right leg cellulitis with abscess POA Peripheral arterial disease POA Uncontrolled diabetes POA Hypertension POA Hyperlipidemia POA Normocytic normochromic anemia POA History of right foot amputation POA History of left great toe amputation POA History of diabetic foot ulcers POA PLAN: Patient to be admitted to the medical-surgical floor Continue cardiac diet Continue broad-spectrum IV antibiotics Infectious disease consultation requested, follow input and recommendation Surgical consultation requested, follow input and recommendation We will order MRI of the right foot rule out osteomyelitis Continue on Famotidine 20 mg p.o. bid for GI prophylaxis We will replace electrolytes as needed per protocol We will continue on insulin sliding scale AC & HS with hypoglycemia protocol We will add prn medication for fever,pain,cough and nausea We will reconcile home meds once medlist available Arterial Doppler with finding of atherosclerotic disease as well as peripheral vascular disease Replace electrolytes IV per protocol We will request labs in am Further orders to follow depending on above results Plan of action discussed with the patient, all questions answered, agreed and understood the information provided. JANNET BLAKELY MD Apr 15, 2024 10:50
[2024-04-15] MEDS ORDERED: metoPROLOL tartRATE 1 MG/ML 5ML VIAL IV PRN (11:30)
--- NOTE | 2024-04-15 12:18 | PN ---
INFECTIOUS DISEASE PROGRESS NOTE Date of Service: Apr 15, 2024 SUBJECTIVE: This is a 59-year-old male patient with past medical history of diabetes mellitus, TIA and amputation of the right foot who presented to the hospital with chief complaint of a draining wound to the right posterior leg. Wound cultures were obtained from the right lower extremity and the preliminary results growing Gram-negative rods. Patient is awake, alert and oriented x3. Patient had a low-grade fever of 99.7 throughout the night and current temperature is 98.4. WBC slightly elevated 11.1. An MRI of the right foot obtained yesterday showed findings suspicious for osteomyelitis on the anterior aspect of the right calcaneus. Patient is currently on vancomycin and Zosyn. No reports nausea or vomiting. We will continue to monitor patient's care. PHYSICAL EXAM EYES: Anicteric. Pupils equal and reactive. HENT: No oral thrush seen, moist Oral mucosa NECK: Supple, no JVD or thyromegaly. LUNGS: Good air entry. No rales, no rhonchi. CARDIOVASCULAR: S1, S2 regular. No murmur heard. ABDOMEN: Soft, non tender, bowel sounds present, no organomegaly CENTRAL NERVOUS SYSTEM: Awake, alert, oriented x 3. SKIN: No rashes, no swelling. Right lower extremity and foot diabetic ulcer. LYMPHATICS: No peripheral lymphadenopathy MUSCULOSKELETAL: No joint swelling, erythema or tenderness. EXTREMITIES: No cyanosis or clubbing. Right foot amputation. diabetic ulcer. BACK: No deformity, no pressure ulcer. GENITOURINARY: No dysuria or hematuria Vital Sign (Last 12 Hours) 04/15/24 04/15/24 04/15/24 04:02 08:00 08:00 Temp 98.8 98.4 Pulse 93 109 Resp 17 18 B/P (MAP) 119/68 145/90 Pulse Ox 90 92 92 O2 Delivery Room Air Room Air Room Air* O2 Flow Rate 0 FiO2 21 21 Intake & Output (last 24hrs) 04/14/24 04/14/24 04/15/24 14:59 22:59 06:59 Intake Total 540 ml Output Total 950 ml Balance -410 ml LABS: Laboratory: Test 04/15/24 11:24 04/15/24 06:46 04/15/24 03:33 04/14/24 05:46 Range/Units Whole Blood Glucose 265 #H 70-110 MG/DL Bedside Glucose Comment Notified Nurse Vancomycin Level Trough 21.6 #H 10.0-20.0 UG/ML White Blood Count 11.1 H 4.8-10.8 K/uL Red Blood Count 2.67 L 4.50-6.20 MIL/uL Hemoglobin 8.4 L 14.0-18.0 g/dL Hematocrit 25.1 L 42-54 % Mean Corpuscular Volume 94.0 79-99 fL Mean Corpuscular Hemoglobin 31.5 27.0-33.0 pg Mean Corpuscular Hemoglobin Concent 33.5 32.0-36.0 g/dL Red Cell Distribution Width 12.5 11.0-15.5 % Platelet Count 345 130-400 K/uL Mean Platelet Volume 9.9 7.5-10.5 fL Nucleated Red Blood Cells 0.0 0.0-0.19 % Sodium Level 136 136-145 mmol/L Potassium Level 3.8 3.5-5.1 mmol/L Chloride Level 105 101-111 mmol/L Carbon Dioxide Level 27 21-32 mmol/L Blood Urea Nitrogen 14 7-18 mg/dL Creatinine 1.1 0.5-1.3 mg/dL Glomerular Filtration Rate Calc 78 >90 mL/min Random Glucose 128 H 70-105 mg/dL Total Calcium 8.0 L 8.5-10.1 mg/dL Magnesium Level 1.80 1.80-2.40 mg/dL Total Bilirubin 0.6 # 0.2-1.0 mg/dL Aspartate Amino Transf (AST/SGOT) 13 10-37 U/L Alanine Aminotransferase (ALT/SGPT) 9 L 12-78 U/L Alkaline Phosphatase 64 50-136 U/L Total Protein 6.3 6.0-8.3 g/dL Albumin 1.6 #L 3.5-5.0 g/dL Immature Granulocyte % (Auto) 0.5 0-1 % Neutrophils (%) (Auto) 83.8 H 40.0-77.0 % Lymphocytes (%) (Auto) 11.1 L 21.0-51.0 % Monocytes (%) (Auto) 3.7 3.0-13.0 % Eosinophils (%) (Auto) 0.6 0.0-8.0 % Basophils (%) (Auto) 0.3 0.0-5.0 % Neutrophils # (Auto) 9.3 H 1.8-7.7 K/uL Lymphocytes # (Auto) 1.2 1.0-4.8 K/uL Monocytes # (Auto) 0.4 0.1-1.0 K/uL Eosinophils # (Auto) 0.07 0.00-0.70 K/uL Basophils # (Auto) 0.03 0.00-0.20 K/uL Absolute Immature Granulocyte (auto 0.06 0-1 K/uL Erythrocyte Sedimentation Rate 120 H 0-20 MM/HR Hemoglobin A1c 11.1 H 4.0-6.0 % Estimated Average Glucose (eAG) 272 H 70-126 mg/dL Triglycerides Level 108 30-200 mg/dL Cholesterol Level 112 <200 mg/dL LDL Cholesterol 70 0-99 mg/dL HDL Cholesterol 29 29-71 mg/dL DIAGNOSTICS / RADIOLOGY: PATIENT: SAVANA DUFF MR#: [id number] : 1965 SEX: M AGE: 59 LOCATION: [facility] ORDER 04 STATUS: ADM IN REPORT#: [id number] SERVICE REASON: RIGHT FOOT CELLULITIS ORDERING PHYSICIAN: HECTOR MARIE DPM PROCEDURE: FT RT WO - MR FOOT RIGHT WO MR FOOT RIGHT WO HISTORY: Cellulitis COMPARISON: None TECHNIQUE: MRI of the right foot was performed utilizing multiple pulse sequences in axial, coronal and sagittal planes. Patient was not given contrast through intravenous route. FINDINGS: Abnormal increased signal intensity is seen involving the anterior aspect of the calcaneus. Findings are suspicious for osteomyelitis in the proper clinical setting. Abnormal signal intensity is also seen involving the tissue at medial aspect of the calcaneus. This may be related to myositis/cellulitis. No rupture of the Achilles tendon is seen. IMPRESSION: 1. Findings suspicious for osteomyelitis involving the anterior aspect of the calcaneus with adjacent cellulitis/myositis changes. ASSESSMENT: Right Calcaneal osteomyelitis. Leukocytosis. Right foot diabetic ulcer. Diabetes mellitus. Peripheral vascular disease. History of amputation of the right foot. PLAN: Continue vancomycin per pharmacy protocol. Continue Zosyn IV. Continue wound care as recommended by ordnance artificer helper. Continue pain management. We will follow up on the final wound culture results. We will monitor electrolytes. This case was reviewed and discussed with my supervising physician and the above assessment and plan was formulated and agreed upon. ATTESTATION BY PHYSICIAN I have seen and examined the patient. I reviewed the documentation, medical decision making, and treatment plan as noted by the mid-level provider above. I agree with the findings and plan of care. MÓNICA MOSQUEDA MD, [facility] Apr 15, 2024 12:18
--- NOTE | 2024-04-15 19:28 | HMCIMG ---
CT LOW EXT W/O CONTRAST HISTORY: No additional history given. COMPARISON: None TECHNIQUE: Multiple sequential axial images of the right lower extremity were obtained including post processing sagittal and coronal reconstruction images. Patient was not given contrast through intravenous route. FINDINGS: Extensive subcutaneous soft tissue swelling is seen suggestive of cellulitis versus venous stasis. There are also soft tissue swelling of the right lower leg musculature near the soleus and gastrocnemius related to myositis. There is focal area with air collection in the mid calf level suggestive of abscess. However, no definite drainable abscess collection is seen. There may be phlegmon collection in this area. The study is limited. No evidence of fracture or dislocation is seen. Evaluation for osteomyelitis is limited with CT. IMPRESSION: 1. Findings as described above. CT was performed with one or more following dose reduction techniques: automated exposure control, adjustment of the mA and kv according to patient's size, or use of a iterative reconstruction technique.
[2024-04-15] MEDS: metoPROLOL tartRATE 25 MG TAB PO SCH (20:04)
[2024-04-15] MEDS: VANCOMYCIN 1G/250ML KIT 250 ML IV SCH (21:34)
[2024-04-16] VITALS (7 sets, daily range): BP systolic 115–155; BP diastolic 75–103; PULSE 104–119; RESP 18–19; TEMP 98.1–100.7; O2SAT 93–96
[2024-04-16 04:59] LABS: HEMATOCRIT 26.4 % (42-54); MEAN CORPUSCULAR HEMOGLOBIN 31.5 pg (27.0-33.0); MEAN CORPUSCULAR HGB CONC 33.3 g/dL (32.0-36.0); MEAN CORPUSCULAR VOLUME 94.6 fL (79-99); RED BLOOD CELL COUNT(AUTO) 2.79 MIL/uL (4.50-6.20); RED CELL DISTRIBUTION WIDTH 12.4 % (11.0-15.5); WHITE BLOOD COUNT (AUTO) 11.1 K/uL (4.8-10.8)
[2024-04-16 05:18] LABS: ALBUMIN 1.7 g/dL (3.5-5.0); BILIRUBIN,TOTAL 0.7 mg/dL (0.2-1.0); CREATININE 1.3 mg/dL (0.5-1.3); MAGNESIUM 1.8 mg/dL (1.80-2.40); POTASSIUM 3.8 mmol/L (3.5-5.1); TOTAL PROTEIN, SERUM 6.7 g/dL (6.0-8.3)
--- NOTE | 2024-04-16 06:29 | PN ---
SUBJECTIVE: The patient is a 59-year-old male, diabetes, history of TIA, rearfoot amputation on the right. Wound cultures from his right plantar foot are growing back Gram-negative rods. The patient currently has an MRI, which is suggesting anterior calcaneal osteomyelitis and a CT that is suggesting mid calf abscess. He is currently receiving vancomycin and Zosyn, continues to be afebrile. His white count is within normal limits. He has arterial Doppler studies, which suggest monophasic waveforms distal to the popliteal on that right side. Surgery has been consulted for evaluation of this patient. Consult is pending. He has had an amputation on the right of all bones on the right foot with the exception of the calcaneus and the talus. His past medical history is significant for the patient drinking 12 beers a day, hypertension, hyperlipidemia, peripheral vascular disease, right internal carotid artery stenosis, diabetes, history of TIA, history of right foot gangrene, history of right, lower extremity peripheral vascular disease, history of amputation of the left great toe and history of amputation at the Chopart's level on the right. The patient now with an ulcer to the right heel, osteomyelitis to the right calcaneus and abscess to his mid calf per his CT evaluation. REVIEW OF SYSTEMS: CONSTITUTIONAL: Having no current chills, fevers, night sweats, nausea, vomiting or diarrhea. HEENT: No problems with his eyes, ears, nose or throat. CARDIOVASCULAR: He has known peripheral vascular disease, monophasic waveforms distal to the popliteal on the right, history of carotid artery disease and hypertension. RESPIRATORY: No shortness of breath. GENITOURINARY: No dysuria. GASTROINTESTINAL: No dysphagia. GENITOURINARY: He has a BUN and a creatinine level 16 and 1.3. PSYCHIATRIC: Denied any depression. INTEGUMENT: He has an ulcer to the right heel plantarly 15 x 15 x 15 with a mixed granular fibrotic base. OBJECTIVE: On examination today, his feet are warm. I cannot palpate his pedal pulses. Rearfoot amputation on the right first toe amputation on the left. Ulcer to the plantar heel, fibrotic 15 x 15 x 15 mm, edema, erythema and associated cellulitis. No exposed bone. No evidence of consolidated abscess to his foot. Mild edema and mild erythema. ASSESSMENT: Severe peripheral vascular disease to right lower extremity per arterial Doppler studies, suspected osteomyelitis per his MRI of the anterior calcaneus and abscess to the mid calf per his CT evaluation. The patient's cultures are growing back Gram-negative rods. He is receiving IV vancomycin and Zosyn. He is afebrile. His white count is within normal limits. PLAN: We are waiting Surgery's evaluation of his abnormal CT showing mid calf abscess. From my standpoint, we will continue with IV antibiotics and local wound care. The patient has evidence of severe peripheral vascular disease clinically and per his arterial Doppler studies. Continue with vancomycin and Zosyn. Nonweightbearing status on that right foot. TID: [id number] RECEIPT: [id number]
--- NOTE | 2024-04-16 08:38 | PN ---
[facility] PROGRESS NOTE Date of Service: Apr 16, 2024 Time of Service: 08:38 SUBJECTIVE: The patient has been seen and examined during my rounding today, alert oriented x3, he is getting IV antibiotics, BP 150/87, getting good pain control with current medical management, rest of the vital signs unremarkable, afebrile, saturating normal on room air. He denied chest pain, shortness shortness for breath, no nausea, no vomiting. Blood work reviewed, as well as imaging results, discussed with the patient. 04/16 the patient has been seen and examined earlier this morning during my rounding, no acute events overnight, during my visit he remains comfortably in bed, alert oriented x3, hemodynamically stable, getting IV antibiotics, no chest pain, no shortness a breath, no nausea, no vomiting, no abdominal discomfort, no family members at bedside during my visit. REVIEW OF SYSTEMS CONSTITUTIONAL: Denies fevers, chills, or night sweats. No unintentional weight loss reported. NEUROLOGICAL: Denies headache, amaurosis fugax, motor weakness, sensory deficit, vertigo/spinning sensation, gait abnormalities, or tremors. ENT: No hearing loss, otalgia, otorrhea, rhinitis, rhinorrhea, hoarseness, or sore throat. CARDIOVASCULAR: Denies any exertional angina, dyspnea on exertion, orthopnea, paroxysmal nocturnal dyspnea, palpitations, life-threatening arrhythmias, claudication. PULMONARY: Denies any shortness of breath, cough, phlegm/sputum, hemoptysis, pleuritic chest pain. SLEEP: Denies morning headaches, daytime somnolence or napping. Denies difficulty falling asleep, staying asleep, waking from sleep. Denies knowledge of snoring. GASTROINTESTINAL: Denies any type of dysphagia to either liquids or solids. Denies nausea, vomiting, pyrosis, early satiety, abdominal pain, diarrhea, constipation, or changes in stool consistency or caliber. Denies coffee-ground emesis, hematemesis, hematochezia, or melanotic stools. GENITOURINARY: Denies frequency, urgency, nocturia, hematuria or incontinence (Storage/Irritative symptoms.) Low urinary stream, straining to void, urinary intermittency or hesitancy, splitting of the voiding stream, terminal dribbling. ENDOCRINOLOGIC: Denies polyuria, polydipsia, polyphagia or heat/cold intolerances. HEMATOLOGIC: Denies thrombophilia/previous clots, or coagulopathy/bleeding disorders. ONCOLOGIC: Denies personal history of malignancy. DERMATOLOGIC: Denies rashes or pruritus. PSYCHIATRIC: Denies any suicidal or homicidal ideation. Denies hallucinations. PHYSICAL EXAM GENERAL APPEARANCE: The patient is awake, alert, and oriented, in no acute cardiopulmonary distress. NEUROLOGICAL: Cranial nerves II-XII grossly intact. Motor is 5/5 in bilateral upper and lower extremities proximal to distal. No sensory deficits. HEENT: Face is symmetric. Pupils are equal and reactive. Extraocular movements are intact. NECK: Supple. No JVD. No thyromegaly. No submental, submandibular, pre- /postauricular, occipital or supraclavicular lymphadenopathy. CHEST: Normal chest expansion. No Telemetry. LUNGS: Absence of any rales, rhonchi or any wheezing. CARDIOVASCULAR: Regular. S1 and S2 normal. No appreciable rubs, murmurs or gallops. ABDOMEN: Soft, nontender, and nondistended. There is no rebound, voluntary guarding, or rigidity. : Deferred. No Abrams. EXTREMITIES: Non-edematous and not cyanotic. No clubbing. Good capillary refill. SKIN: No skin breakdown. Vital Signs (last 8hr) Date Time Temp Pulse Resp B/P (MAP) Pulse Ox O2 Delivery O2 Flow Rate FiO2 04/16/24 08:00 100.8 109 19 130/83 90 Room Air 04/16/24 04:12 98.1 106 18 131/78 94 Room Air LABS: Laboratory: Test 04/16/24 05:57 04/16/24 04:41 04/15/24 20:30 Range/Units Whole Blood Glucose 167 H 70-110 MG/DL Bedside Glucose Comment Notified Nurse White Blood Count 11.1 H 4.8-10.8 K/uL Red Blood Count 2.79 L 4.50-6.20 MIL/uL Hemoglobin 8.8 L 14.0-18.0 g/dL Hematocrit 26.4 L 42-54 % Mean Corpuscular Volume 94.6 79-99 fL Mean Corpuscular Hemoglobin 31.5 27.0-33.0 pg Mean Corpuscular Hemoglobin Concent 33.3 32.0-36.0 g/dL Red Cell Distribution Width 12.4 11.0-15.5 % Platelet Count 348 130-400 K/uL Mean Platelet Volume 9.6 7.5-10.5 fL Nucleated Red Blood Cells 0.0 0.0-0.19 % Sodium Level 137 136-145 mmol/L Potassium Level 3.8 3.5-5.1 mmol/L Chloride Level 103 101-111 mmol/L Carbon Dioxide Level 27 21-32 mmol/L Blood Urea Nitrogen 16 7-18 mg/dL Creatinine 1.3 0.5-1.3 mg/dL Glomerular Filtration Rate Calc 64 >90 mL/min Random Glucose 159 H 70-105 mg/dL Total Calcium 8.2 L 8.5-10.1 mg/dL Magnesium Level 1.80 1.80-2.40 mg/dL Total Bilirubin 0.7 0.2-1.0 mg/dL Aspartate Amino Transf (AST/SGOT) 15 10-37 U/L Alanine Aminotransferase (ALT/SGPT) 10 L 12-78 U/L Alkaline Phosphatase 69 50-136 U/L Total Protein 6.7 6.0-8.3 g/dL Albumin 1.7 L 3.5-5.0 g/dL Vancomycin Level Trough 11.7 # 10.0-20.0 UG/ML Current Medications Medications (Trade) Dose Ordered Sig/Jl Route PRN Reason Start Time Stop Time Status Last Admin Dose Admin Aspirin (Aspirin 81mg Ec Tab) 81 mg DAILY PO 04/15/24 09:00 05/15/24 08:59 04/15/24 10:06 81 MG Atorvastatin Calcium (LIPItor 40MG) 40 mg HS PO 04/14/24 21:00 05/14/24 20:59 04/15/24 20:04 40 MG Dextrose (D50w) 50 ml AD PRN IV HYPOGLYCEMIA PROTOCOL 04/13/24 23:00 05/13/24 22:59 Famotidine (Pepcid 20mg Tab) 20 mg BID PO 04/14/24 09:00 05/14/24 08:59 04/15/24 20:04 20 MG Glucagon (Glucagon 1mg Kit) 1 mg AD PRN IM HYPOGLYCEMIA PROTOCOL 04/13/24 23:00 05/13/24 22:59 Hydralazine HCl (APRESOLine 20MG INJ) 10 mg Q6H PRN IV For:SBP above 160;DBP above 90 04/13/24 23:00 05/13/24 22:59 Insulin Human Regular (humuLIN R 100 UNIT/ML 3ML) INSULIN SLIDING SCAL... ACHS SQ 04/14/24 07:30 05/14/24 07:29 04/15/24 21:37 6 UNIT Leptospermum Honey (Medihoney) 1 appl DAILY TP 04/15/24 09:00 05/15/24 08:59 04/15/24 10:06 1 APPL Magnesium Sulfate 50 ml @ 0 mls/hr PROTOCOL IV 04/14/24 13:00 04/14/24 12:35 DC Magnesium Sulfate 50 ml @ 0 mls/hr PROTOCOL PRN IV OTHER [SEE ORDER COMMENTS] 04/13/24 23:00 05/13/24 22:59 04/14/24 07:42 25 MLS/HR Metoprolol Tartrate (loprESSOR) 5 mg Q4H PRN IV INCREASED HEART RATE 04/15/24 11:30 05/15/24 11:29 Metoprolol Tartrate (loprESSOR) 12.5 mg BID PO 04/14/24 21:00 04/15/24 11:05 DC 04/15/24 10:06 12.5 MG Metoprolol Tartrate (loprESSOR) 25 mg BID PO 04/15/24 21:00 05/15/24 20:59 04/15/24 20:04 25 MG Morphine Sulfate (morPHINE 2MG SYG) 2 mg Q4H PRN IV MODERATE PAIN (4-6) 04/13/24 23:00 04/20/24 22:59 04/15/24 10:26 2 MG Ondansetron HCl (zoFRAN 4MG INJ) 4 mg Q6H PRN IV NAUSEA/VOMITING 04/13/24 23:00 05/13/24 22:59 Piperacillin Sod/ Tazobactam Sod 50 ml @ 12.5 mls/hr Q8H IV 04/14/24 01:30 04/24/24 01:29 04/16/24 00:55 12.5 MLS/HR Piperacillin Sod/ Tazobactam Sod (Zosyn 3.375gm+NS 50ml) 3.375 gm Q12H STAT IV 04/13/24 17:26 04/13/24 17:33 DC 04/13/24 20:52 3.375 GM Potassium Chloride 100 ml @ 100 mls/hr AD PRN IV POTASSIUM PROTOCOL 04/13/24 23:00 05/13/24 22:59 Potassium Chloride (K-Dur/Klor-Con 20meq) 20 meq AD PRN PO POTASSIUM PROTOCOL 04/13/24 23:00 05/13/24 22:59 04/16/24 06:18 20 MEQ Potassium Chloride (KCl 10% Elixir 20meq/15ml) 20 meq AD PRN PO POTASSIUM PROTOCOL 04/13/24 23:00 05/13/24 22:59 Vancomycin HCl 250 ml @ 125 mls/hr ONCE IV 04/13/24 23:00 04/13/24 23:06 DC Vancomycin HCl 250 ml @ 125 mls/hr Q12H IV 04/14/24 08:00 04/14/24 09:03 DC Vancomycin HCl 250 ml @ 125 mls/hr Q12H IV 04/14/24 09:30 04/15/24 09:16 DC 04/14/24 21:52 125 MLS/HR Vancomycin HCl 250 ml @ 125 mls/hr Q12H IV 04/15/24 21:30 04/24/24 09:29 04/15/24 21:34 125 MLS/HR Vancomycin HCl (Vancomycin Protocol) 1 each AD IV 04/13/24 17:26 04/27/24 17:25 DIAGNOSTICS / RADIOLOGY: [ ] ASSESSMENT: Infected right leg cellulitis with abscess POA Osteomyelitis anterior aspect of the calcaneus with adjacent cellulitis/myositis, POA Peripheral arterial disease POA Uncontrolled diabetes POA Hypertension POA Hyperlipidemia POA Normocytic normochromic anemia POA History of right foot amputation POA History of left great toe amputation POA History of diabetic foot ulcers POA PLAN: Patient to be admitted to the medical-surgical floor Continue cardiac diet Continue broad-spectrum IV antibiotics Infectious disease consultation requested, follow input and recommendation Surgical consultation requested, follow input and recommendation MRI of the right foot showing osteomyelitis Continue on Famotidine 20 mg p.o. bid for GI prophylaxis We will replace electrolytes as needed per protocol We will continue on insulin sliding scale AC & HS with hypoglycemia protocol Continue prn medication for fever,pain,cough and nausea Home medications reviewed and reconciled Arterial Doppler with finding of atherosclerotic disease as well as peripheral vascular disease Replace electrolytes IV per protocol We will request labs in am Further orders to follow depending on above results Disposition: The patient remains admitted to the medical floor, MRI with findings suspicious of osteomyelitis involving the anterior aspect of the calcaneus with the adjacent cellulitis/myositis changes. Continue broad- spectrum IV antibiotics continue to follow podiatry and infectious disease input recommendation. Surgical consultation requested, continue to follow input and recommendation. Arterial ultrasound with findings of peripheral arterial disease, cardiology consultation requested, we will follow input and recommendation. Plan of action discussed with the patient, all questions answered, agreed and understood the information provided. JANNET BLAKELY MD Apr 16, 2024 08:38
--- NOTE | 2024-04-16 11:29 | PN ---
INFECTIOUS DISEASE PROGRESS NOTE Date of Service: Apr 16, 2024 SUBJECTIVE: This is a 59-year-old male patient with past medical history of diabetes mellitus, TIA and amputation of the right foot who presented to the hospital with chief complaint of a draining wound to the right posterior leg. Wound cultures were obtained from the right lower extremity and the preliminary results growing Gram-negative rods. Patient is awake, alert and oriented x3. Patient resting comfortably in bed. Patient has a low-grade fever of 100.8 this morning. WBC still slightly elevated 11.1. Per report pending evaluation with Cardiology for right lower extremity peripheral artery disease. Some erythema resting on the right posterior lower extremity. Final wound cultures from the right lower extremity came back positive for Enterococcus faecalis and E coli. Patient continues on vancomycin and Zosyn. We will continue to monitor patient's care. PHYSICAL EXAM EYES: Anicteric. Pupils equal and reactive. HENT: No oral thrush seen, moist Oral mucosa NECK: Supple, no JVD or thyromegaly. LUNGS: Good air entry. No rales, no rhonchi. CARDIOVASCULAR: S1, S2 regular. No murmur heard. ABDOMEN: Soft, non tender, bowel sounds present, no organomegaly CENTRAL NERVOUS SYSTEM: Awake, alert, oriented x 3. SKIN: No rashes, no swelling. Right lower extremity and foot diabetic ulcer. LYMPHATICS: No peripheral lymphadenopathy MUSCULOSKELETAL: No joint swelling, erythema or tenderness. EXTREMITIES: No cyanosis or clubbing. Right foot amputation. diabetic ulcer. BACK: No deformity, no pressure ulcer. GENITOURINARY: No dysuria or hematuria Vital Sign (Last 12 Hours) 04/15/24 04/16/24 04/16/24 04/16/24 23:55 04:12 08:00 08:00 Temp 98.1 98.1 100.8 Pulse 102 106 109 Resp 20 18 19 B/P (MAP) 139/81 131/78 130/83 Pulse Ox 95 94 90 96 O2 Delivery Room Air Room Air Room Air Room Air* O2 Flow Rate 0 FiO2 21 Intake & Output (last 24hrs) 04/15/24 04/15/24 04/16/24 15:00 23:00 07:00 Intake Total 1080.0 ml Output Total 925 ml Balance 155.0 ml LABS: Laboratory: Test 04/16/24 11:07 04/16/24 05:57 04/16/24 04:41 04/15/24 20:30 Range/Units Whole Blood Glucose 216 H 70-110 MG/DL Bedside Glucose Comment Notified Nurse White Blood Count 11.1 H 4.8-10.8 K/uL Red Blood Count 2.79 L 4.50-6.20 MIL/uL Hemoglobin 8.8 L 14.0-18.0 g/dL Hematocrit 26.4 L 42-54 % Mean Corpuscular Volume 94.6 79-99 fL Mean Corpuscular Hemoglobin 31.5 27.0-33.0 pg Mean Corpuscular Hemoglobin Concent 33.3 32.0-36.0 g/dL Red Cell Distribution Width 12.4 11.0-15.5 % Platelet Count 348 130-400 K/uL Mean Platelet Volume 9.6 7.5-10.5 fL Nucleated Red Blood Cells 0.0 0.0-0.19 % Sodium Level 137 136-145 mmol/L Potassium Level 3.8 3.5-5.1 mmol/L Chloride Level 103 101-111 mmol/L Carbon Dioxide Level 27 21-32 mmol/L Blood Urea Nitrogen 16 7-18 mg/dL Creatinine 1.3 0.5-1.3 mg/dL Glomerular Filtration Rate Calc 64 >90 mL/min Random Glucose 159 H 70-105 mg/dL Total Calcium 8.2 L 8.5-10.1 mg/dL Magnesium Level 1.80 1.80-2.40 mg/dL Total Bilirubin 0.7 0.2-1.0 mg/dL Aspartate Amino Transf (AST/SGOT) 15 10-37 U/L Alanine Aminotransferase (ALT/SGPT) 10 L 12-78 U/L Alkaline Phosphatase 69 50-136 U/L Total Protein 6.7 6.0-8.3 g/dL Albumin 1.7 L 3.5-5.0 g/dL Vancomycin Level Trough 11.7 # 10.0-20.0 UG/ML ASSESSMENT: Right Calcaneal osteomyelitis. Leukocytosis. Right lower extremity wound infection with Enterococcus faecalis and E coli. . Diabetes mellitus. Peripheral vascular disease. History of amputation of the right foot. PLAN: Continue vancomycin per pharmacy protocol. Continue Zosyn IV. Continue wound care as recommended by data services developer. Continue pain management. Continue monitoring glucose levels. We will monitor electrolytes. This case was reviewed and discussed with my supervising physician and the above assessment and plan was formulated and agreed upon. ATTESTATION BY PHYSICIAN I have seen and examined the patient. I reviewed the documentation, medical decision making, and treatment plan as noted by the mid-level provider above. I agree with the findings and plan of care. MÓNICA MOSQUEDA MD, MIRTA L PRODUCT DEVELOPMENT SCIENTIST Apr 16, 2024 11:29
--- NOTE | 2024-04-16 12:03 | CONS ---
[facility] CARDIOLOGY CONSULTATION REPORT Cardiology consultation note dictated for Shai Vivar MD Primary manager endoscopy Sarah Vernon MD Date Patient Seen: Apr 16, 2024 Requesting Physician: Danish Su MD Reason for Consultation: RLE PAD History of Present Illness: This is a 59-year-old male with a past medical history of hypertension, dyslipidemia, diabetes mellitus type 2, TIA in 03/2023, old pontine lacunar infarcts, right carotid artery disease, ischemic cardiomyopathy, 2D echo on 05/25/2023 demonstrated an EF of 40-45%, stage I diastolic dysfunction, lateral and inferior wall hypokinesis, Abnormal Lexiscan stress test on 05/27/2023 with moderate inferolateral and inferior wall ischemia of moderate size, mild to moderate reduction in LVEF at 38% with mild global hypokinesis, Coronary angiogram on 05/24/2023 with primary stent placement to the distal obtuse marginal branch #2 with a (2.5 mm x 22 mm [place] stent) and primary stent placement to the mid obtuse marginal branch #2 with a (3 mm x 18 mm [place] stent) with 50-70% residual proximal RCA segment stenosis, medication noncompliance, PAD, left great toe amputation, right rear foot amputation, and right Chopart's level amputation who was sent by his primary physician for evaluation of his ulceration to the right heel and abscess to the posterior calf. The MRI revealed right foot osteomyelitis involving the anterior aspect of the calcaneus with adjacent cellulitis/myositis changes. The arterial ultrasound demonstrated abnormal monophasic arterial waveforms in the right popliteal, anterior tibial, posterior tibial, and dorsalis pedal arteries. Cardiology has been consulted for recommendations. The patient states he does not know how he developed an ulceration to his right heel as he is very careful not to hurt himself and he does not place weight on it. He uses a wheelchair and a rolling chair while at home, but does have a walker available to use. He visited the ED on 04/08/2024 due to 2-3 days of edema and erythema to his right posterior calf and foul smell to his right foot amputation site. He was prescribed Clindamycin and instructed to visit his PCP which then instructed him to return to the ED on 04/13/2024. He has not been noncompliant with his podiatry visits with Dr. Aroldo Godfrey, but has been using Medihoney to his right heel wound until he ran out. He currently complains of RLE discomfort with palpation mild dyspnea. He denies chest pain, palpitations, dizziness, chills, nausea or vomiting. He had a temperature of 100.8 degree F this morning. Past Medical History: As per HPI and summarized below Past Surgical History: Left great toe amputation Right rear foot amputation Right Chopart's level amputation Family History: The patient's mother had diabetes mellitus type 2. Social History: The patient lives with his girlfriend. Habits: The patient denies alcohol, tobacco, or illicit drug use. He states he quit drinking alcohol 1 year ago although other providers have documented a recent alcohol consumption. Home Meds: Noncompliant with medication Current Meds: Current Medications Medications Dose Ordered Sig/Jl Start Time Stop Time Status Last Admin Vancomycin HCl 1 each AD 04/13/24 17:26 04/27/24 17:25 Ondansetron HCl 4 mg Q6H PRN 04/13/24 23:00 05/13/24 22:59 Famotidine 20 mg BID 04/14/24 09:00 05/14/24 08:59 04/16/24 08:57 Piperacillin Sod/ Tazobactam Sod 50 ml @ 12.5 mls/hr Q8H 04/14/24 01:30 04/24/24 01:29 04/16/24 08:58 Morphine Sulfate 2 mg Q4H PRN 04/13/24 23:00 04/20/24 22:59 04/15/24 10:26 Hydralazine HCl 10 mg Q6H PRN 04/13/24 23:00 05/13/24 22:59 Magnesium Sulfate 50 ml @ 0 mls/hr PROTOCOL PRN 04/13/24 23:00 05/13/24 22:59 04/14/24 07:42 Potassium Chloride 100 ml @ 100 mls/hr AD PRN 04/13/24 23:00 05/13/24 22:59 Potassium Chloride 20 meq AD PRN 04/13/24 23:00 05/13/24 22:59 Potassium Chloride 20 meq AD PRN 04/13/24 23:00 05/13/24 22:59 04/16/24 08:58 Insulin Human Regular INSULIN SLIDING SCAL... ACHS 04/14/24 07:30 05/14/24 07:29 04/15/24 21:37 Dextrose 50 ml AD PRN 04/13/24 23:00 05/13/24 22:59 Glucagon 1 mg AD PRN 04/13/24 23:00 05/13/24 22:59 Aspirin 81 mg DAILY 04/15/24 09:00 05/15/24 08:59 04/16/24 08:57 Atorvastatin Calcium 40 mg HS 04/14/24 21:00 05/14/24 20:59 04/15/24 20:04 Leptospermum Honey 1 appl DAILY 04/15/24 09:00 05/15/24 08:59 04/16/24 08:58 Vancomycin HCl 250 ml @ 125 mls/hr Q12H 04/15/24 21:30 04/24/24 09:29 04/16/24 08:58 Metoprolol Tartrate 25 mg BID 04/15/24 21:00 05/15/24 20:59 04/16/24 08:58 Metoprolol Tartrate 5 mg Q4H PRN 04/15/24 11:30 05/15/24 11:29 Review of Systems: CONST: No fever, fatigue, or weight changes. EYES: No recent vision problems. ENT: No congestion, ear pain, or sore throat. C/V: No chest pain, palpitations, or edema. RESP: No cough, congestion, or wheezing. Admits to mild dyspnea. GI: No abdominal pain, nausea, vomiting, constipation, or diarrhea. : No incontinence or dysuria. SKIN: No rash. Admits to right lower extremity pain with palpation. NEURO: No headache, focal numbness or weakness, dizziness, or seizures. PSYCH: No depression or anxiety. HEME: No abnormal bruising or bleeding. LYMPH: No swollen glands. Physical Examination: GENERAL: No acute distress. HEAD: Normal with no signs of head trauma. EYES: PERRLA, EOMI, conjunctiva and sclera normal. ENT: Hearing grossly intact, normal oropharynx. NECK: Supple without JVD. There is no tenderness, lymphadenopathy, or masses. No thyromegaly. Normal carotid upstrokes without bruits. LUNGS: Coarse breath sounds bilaterally. HEART: Tachycardic rate and rhythm. VASC: Unable to palpate bilateral DP pulses, the RT distal extremity is with a dressing in place. Left great toe amputation. Left 5th toe plantar region with callous. RT Chopart's level amputation. ABD: Bowel sounds normal, soft, nontender, no masses, no organomegaly. No audible bruits. : Not examined LYMPH: No lymphadenopathy noted. EXT: No clubbing or cyanosis. Eschar, erythema, warmth to touch and pain upon palpation to the RT posterior calf. RLE with 1-2+ edema. SKIN: No rashes or lesions noted. Brown discoloration to the left foot. NEURO: Awake, alert, and oriented x3. No focal sensory or strength deficits noted. Vital Signs (last 8hr) Date Time Temp Pulse Resp B/P (MAP) Pulse Ox O2 Delivery O2 Flow Rate FiO2 04/16/24 08:00 96 Room Air* 0 21 04/16/24 08:00 100.8 109 19 130/83 90 Room Air 04/16/24 04:12 98.1 106 18 131/78 94 Room Air Laboratory: Hematology Labs: Test 04/16/24 04:41 Range/Units White Blood Count 11.1 H 4.8-10.8 K/uL Red Blood Count 2.79 L 4.50-6.20 MIL/uL Hemoglobin 8.8 L 14.0-18.0 g/dL Hematocrit 26.4 L 42-54 % Mean Corpuscular Volume 94.6 79-99 fL Mean Corpuscular Hemoglobin 31.5 27.0-33.0 pg Mean Corpuscular Hemoglobin Concent 33.3 32.0-36.0 g/dL Red Cell Distribution Width 12.4 11.0-15.5 % Platelet Count 348 130-400 K/uL Mean Platelet Volume 9.6 7.5-10.5 fL Nucleated Red Blood Cells 0.0 0.0-0.19 % Chemistry Labs: Test 04/16/24 11:07 04/16/24 05:57 04/16/24 04:41 Range/Units Whole Blood Glucose 216 H 70-110 MG/DL Bedside Glucose Comment Notified Nurse Sodium Level 137 136-145 mmol/L Potassium Level 3.8 3.5-5.1 mmol/L Chloride Level 103 101-111 mmol/L Carbon Dioxide Level 27 21-32 mmol/L Blood Urea Nitrogen 16 7-18 mg/dL Creatinine 1.3 0.5-1.3 mg/dL Glomerular Filtration Rate Calc 64 >90 mL/min Random Glucose 159 H 70-105 mg/dL Total Calcium 8.2 L 8.5-10.1 mg/dL Magnesium Level 1.80 1.80-2.40 mg/dL Total Bilirubin 0.7 0.2-1.0 mg/dL Aspartate Amino Transf (AST/SGOT) 15 10-37 U/L Alanine Aminotransferase (ALT/SGPT) 10 L 12-78 U/L Alkaline Phosphatase 69 50-136 U/L Total Protein 6.7 6.0-8.3 g/dL Albumin 1.7 L 3.5-5.0 g/dL Diagnostics / Radiology: Impression and Plan: PAD Right posterior calf cellulitis Right leg wound culture from 04/14/24 positive for Enterococcus Faecalis and E. Coli Left great toe amputation Right rear foot amputation Right Chopart's level amputation Normocytic normochromic anemia Hypoalbuminemia Hypertension Dyslipidemia Diabetes mellitus type 2 TIA in 03/2023, old pontine lacunar infarcts Right carotid artery disease Ischemic cardiomyopathy, 2D echo on 05/25/2023 demonstrated an EF of 40-45%, stage I diastolic dysfunction, lateral and inferior wall hypokinesis Abnormal Lexiscan stress test on 05/27/2023 with moderate inferolateral and inferior wall ischemia of moderate size, mild to moderate reduction in LVEF at 38% with mild global hypokinesis Coronary angiogram on 05/24/2023 with a (2.5 mm x 22 mm [place] stent) to the distal OM2 and a (3 mm x 18 mm [place] stent) to the mid OM2 with 50- 70% residual proximal RCA stenosis Medication noncompliance PAD MRI revealed right foot osteomyelitis involving the anterior aspect of the calcaneus with adjacent cellulitis/myositis changes Arterial ultrasound demonstrated abnormal monophasic arterial waveforms in the right popliteal, anterior tibial, posterior tibial, and dorsalis pedal arteries -Continue Aspirin 81mg daily and Atorvastatin 40mg nightly, begin Clopidogrel 75mg daily -TCOM analysis of the right medial ankle to assess the possibility of wound healing -Bilateral LE CTA with runoff BIANCA BAKER [facility] Apr 16, 2024 12:03
[2024-04-16] MEDS: cloPIDOgrel 75MG TAB PO SCH (12:16)
--- NOTE | 2024-04-16 17:12 | PN ---
This is a 59-year-old male with right calf abscess Interval history: This 59-year-old male seen in his room No active drainage from concerning site at this time WBCs 11.1 with a hemoglobin of 8.8 Patient with low-grade CT concerning for possible abscess noted air but no definite drainable collection noted Patient's pain controlled Podiatry on board Physical exam General: Awake alert and oriented Heart: Regular rate and rhythm} Lungs: [Clear to auscultation no distress Abdomen: Continued swelling or tenderness but no fluctuance or drainable fluid collection Assessment : This is a this is a 59-year-old male with concerns of lower extremity abscess Plan: Dr. Freeman to be updated on patient's status Patient to start with warm compresses Patient to continue with IV fluids and IV antibiotics as per recommendations of primary team and Podiatry Surgical team to re-evaluate tomorrow for potential intervention Vitals/Labs Vital Signs Date Time Temp Pulse Resp B/P (MAP) Pulse Ox O2 Delivery O2 Flow Rate FiO2 04/16/24 16:02 98.8 118 19 147/97 92 Room Air 04/16/24 08:00 0 21 Laboratory Tests 04/16/24 04:41 Medications Current Medications Vancomycin HCl 1 gm ONCE ONCE IV; Start 04/13/24 at 17:30; Stop 04/13/24 at 17:32; Status DC Vancomycin HCl 1 each AD IV; Start 04/13/24 at 17:26; Stop 04/27/24 at 17:25 Piperacillin Sod/ Tazobactam Sod 3.375 gm Q12H STAT IV Last administered on 04/13/24at 20:52; Start 04/13/24 at 17:26; Stop 04/13/24 at 17:33; Status DC Vancomycin HCl 500 ml @ 250 mls/hr ONCE ONCE IV Last administered on 04/13/24at 21:25; Start 04/13/24 at 18:00; Stop 04/13/24 at 19:59; Status DC Vancomycin HCl 250 ml @ 125 mls/hr Q12H IV; Start 04/14/24 at 08:00; Stop 04/14/24 at 09:03; Status DC Sodium Chloride 1,000 ml @ 0 mls/hr ONCE ONCE IV Last administered on 04/13/24at 21:32; Start 04/13/24 at 21:30; Stop 04/13/24 at 21:31; Status DC Ondansetron HCl 4 mg Q6H PRN IV; Start 04/13/24 at 23:00; Stop 05/13/24 at 22:59 Famotidine 20 mg BID PO Last administered on 04/16/24at 08:57; Start 04/14/24 at 09:00; Stop 05/14/24 at 08:59 Vancomycin HCl 250 ml @ 125 mls/hr ONCE IV; Start 04/13/24 at 23:00; Stop 04/13/24 at 23:06; Status DC Piperacillin Sod/ Tazobactam Sod 50 ml @ 12.5 mls/hr Q8H IV Last administered on 04/16/24at 08:58; Start 04/14/24 at 01:30; Stop 04/24/24 at 01:29 Morphine Sulfate 2 mg Q4H PRN IV Last administered on 04/15/24at 10:26; Start 04/13/24 at 23:00; Stop 04/20/24 at 22:59 Hydralazine HCl 10 mg Q6H PRN IV; Start 04/13/24 at 23:00; Stop 05/13/24 at 22:59 Magnesium Sulfate 50 ml @ 0 mls/hr PROTOCOL PRN IV Last administered on 04/16/24at 12:14; Start 04/13/24 at 23:00; Stop 05/13/24 at 22:59 Potassium Chloride 100 ml @ 100 mls/hr AD PRN IV; Start 04/13/24 at 23:00; Stop 05/13/24 at 22:59 Potassium Chloride 20 meq AD PRN PO; Start 04/13/24 at 23:00; Stop 05/13/24 at 22:59 Potassium Chloride 20 meq AD PRN PO Last administered on 04/16/24at 08:58; Start 04/13/24 at 23:00; Stop 05/13/24 at 22:59 Insulin Human Regular INSULIN SLIDING SCAL... ACHS SQ Last administered on 04/16/24at 16:58; Start 04/14/24 at 07:30; Stop 05/14/24 at 07:29 Dextrose 50 ml AD PRN IV; Start 04/13/24 at 23:00; Stop 05/13/24 at 22:59 Glucagon 1 mg AD PRN IM; Start 04/13/24 at 23:00; Stop 05/13/24 at 22:59 Vancomycin HCl 250 ml @ 125 mls/hr Q12H IV Last administered on 04/14/24at 21:52; Start 04/14/24 at 09:30; Stop 04/15/24 at 09:16; Status DC Potassium Chloride 40 meq ONCE ONCE PO; Start 04/14/24 at 13:00; Stop 04/14/24 at 13:01; Status DC Magnesium Sulfate 50 ml @ 0 mls/hr PROTOCOL IV; Start 04/14/24 at 13:00; Stop 04/14/24 at 12:35; Status DC Aspirin 81 mg DAILY PO Last administered on 04/16/24at 08:57; Start 04/15/24 at 09:00; Stop 05/15/24 at 08:59 Atorvastatin Calcium 40 mg HS PO Last administered on 04/15/24at 20:04; Start 04/14/24 at 21:00; Stop 05/14/24 at 20:59 Metoprolol Tartrate 12.5 mg BID PO Last administered on 04/15/24at 10:06; Start 04/14/24 at 21:00; Stop 04/15/24 at 11:05; Status DC Leptospermum Honey 1 appl DAILY TP Last administered on 04/16/24at 08:58; Start 04/15/24 at 09:00; Stop 05/15/24 at 08:59 Vancomycin HCl 250 ml @ 125 mls/hr Q12H IV Last administered on 04/16/24at 08:58; Start 04/15/24 at 21:30; Stop 04/24/24 at 09:29 Metoprolol Tartrate 25 mg BID PO Last administered on 04/16/24at 08:58; Start 04/15/24 at 21:00; Stop 05/15/24 at 20:59 Metoprolol Tartrate 5 mg Q4H PRN IV; Start 04/15/24 at 11:30; Stop 05/15/24 at 11:29 Clopidogrel Bisulfate 75 mg DAILY PO Last administered on 04/16/24at 12:16; Start 04/16/24 at 12:30; Stop 05/16/24 at 12:29 FELECIA VILA Jr. Apr 16, 2024 17:12
[2024-04-16] MEDS ORDERED: IOHEXOL-350 50ML VIAL IV ONE (18:43)
[2024-04-16] MEDS ORDERED: IOHEXOL 350 MG/ML 100ML INFUS..BTL IV ONE (18:44)
[2024-04-16] MEDS: hydrALAZine 20MG/ML VIAL IV PRN (20:13)
--- NOTE | 2024-04-16 23:01 | HMCIMG ---
CT ANGIO ABD AORTA W RUNOFF HISTORY: Peripheral artery disease COMPARISON: None TECHNIQUE: CT angiography of the abdomen and pelvis and bilateral lower extremities was obtained using angiographic technique with maximum intensity projection reconstruction images. Patient was not given contrast through intravenous route. Oral contrast was not given. FINDINGS: Bilateral pleural effusions are seen with compressive atelectasis. Mild bilateral pulmonary infiltrates are seen. Coronary arterial calcifications are seen. Degenerative changes of the thoracolumbar spine are present. The heart is not enlarged. Liver measures 16.3 cm. Spleen measures 14.3 cm. The liver, spleen, adrenal glands and pancreas are unremarkable. There is no evidence of hydronephrosis bilaterally. No evidence of renal stone is seen. Fecal material is seen in the colon. There are normal size retroperitoneal and mesenteric lymph nodes. No ascites is seen. Atherosclerotic changes are present. There is diffuse atherosclerotic disease. No evidence of abdominal aortic aneurysm is seen. The celiac, superior mesenteric and bilateral renal arteries are grossly patent. The visualized portion of the iliac and femoral arterial systems are also grossly patent. The popliteal, anterior tibial, posterior tibial and peroneal arteries are patent bilaterally. There is soft tissue emphysema with soft tissue swelling noted involving the subcutaneous tissue at posterior aspect of the right calf may be related to injury versus infectious process and clinical correlation is recommended. Pelvic sidewalls are symmetric bilaterally. Bladder is well distended without wall thickening. IMPRESSION: 1. Bilateral pleural effusion with compressive atelectasis. There is soft tissue emphysema with soft tissue swelling noted involving the subcutaneous tissue at posterior aspect of the right calf may be related to injury versus infectious process and clinical correlation is recommended. Atherosclerosis. Otherwise grossly unremarkable CT angiogram study. CT was performed with one or more following dose reduction techniques: automated exposure control, adjustment of the mA and kv according to patient's size, or use of a iterative reconstruction technique.
[2024-04-17] VITALS (7 sets, daily range): BP systolic 128–157; BP diastolic 75–92; PULSE 88–107; RESP 18–19; TEMP 97.8–98.5; O2SAT 93–98
[2024-04-17 05:45] LABS: HEMATOCRIT 27.1 % (42-54); MEAN CORPUSCULAR HEMOGLOBIN 31.3 pg (27.0-33.0); MEAN CORPUSCULAR HGB CONC 33.2 g/dL (32.0-36.0); MEAN CORPUSCULAR VOLUME 94.1 fL (79-99); RED BLOOD CELL COUNT(AUTO) 2.88 MIL/uL (4.50-6.20); RED CELL DISTRIBUTION WIDTH 12.3 % (11.0-15.5); WHITE BLOOD COUNT (AUTO) 8.7 K/uL (4.8-10.8)
[2024-04-17 06:11] LABS: ALBUMIN 1.8 g/dL (3.5-5.0); BILIRUBIN,TOTAL 0.6 mg/dL (0.2-1.0); CREATININE 1.2 mg/dL (0.5-1.3); MAGNESIUM 1.9 mg/dL (1.80-2.40)
--- NOTE | 2024-04-17 06:31 | PN ---
SUBJECTIVE: The patient is a 59-year-old diabetic, [place] male seen on 04/17/2024. White count 8.7, H and H 9 and 27, platelets 405. Glucose 230. BUN and creatinine level 16 and 1.3. The patient is being followed for suspected right calf abscess and right heel ulcer with osteomyelitis. He is receiving Medihoney dressings to his right heel. Surgery service has been consulted. The patient has arterial Doppler studies, abnormal monophasic seen distal to the popliteal artery on the right side. He has had an amputation of all bones to the right foot with the exception of his calcaneus and talus. His MRI showing calcaneal osteomyelitis. His past medical history is significant for drinking 12 beers a day, right internal carotid artery stenosis, peripheral vascular disease distal to the popliteal artery per arterial Doppler studies, diabetes, history of TIA, history of right foot gangrene, history of right lower extremity peripheral vascular disease, history of amputation of the great toe on the left, history of amputation at [place] level on the right. The patient is being followed now for a chronic ulcer to the right heel, osteomyelitis to the calcaneus and an abscess to the mid calf per CT evaluation. Surgery is evaluating the patient for his mid calf abscess. REVIEW OF SYSTEMS: CONSTITUTIONAL: No chills, no fevers, no night sweats. No nausea or vomiting. No diarrhea. HEENT: No problems with eyes, ears, nose or throat. CARDIOVASCULAR: He has known peripheral vascular disease, monophasic waveforms distal to popiteal, history of carotid artery disease and hypertension. RESPIRATORY: No shortness of breath. GENITOURINARY: No dysuria. GASTROINTESTINAL: No dysphagia. ENDOCRINE: Diabetes. GENITOURINARY: BUN and creatinine 16 and 1.3. PSYCHIATRIC: Denied any depression. MUSCULOSKELETAL: He has a heel ulcer on the right plantarly 15 x 15 x 15 with a mixed granular fibrotic base. PHYSICAL EXAMINATION: EXTREMITIES: Today, his feet are warm. I could not palpate his pedal pulses. Rearfoot amputation on the right, first toe amputation on the left. Ulcer plantar heels fibrotic 15 x 15 x 15 mm. Edema and erythema associated with cellulitis. No exposed bone. There is no evidence of consolidated abscess to his foot. He has mild edema and erythema. ASSESSMENT: Severe peripheral vascular disease to right lower extremity per arterial Doppler studies, osteomyelitis to his heel, abscess to his calf. The patient is receiving broad-spectrum antibiotic therapy. Surgery consult is pending. The patient's cultures are growing back gram-negative rods. His white count is within normal limits. Cultures have come back Enterococcus faecalis and Escherichia coli. The patient continues to be receiving the IV vancomycin and IV Zosyn. PLAN: We are waiting surgery's evaluation of his abnormal CT showing midcalf abscess. From my standpoint, continue with the IV antibiotics and local wound care. The patient has evidence of severe peripheral vascular disease per his arterial Doppler studies, calcaneal osteomyelitis. He has very poor prognosis for healing his right foot wound. Continue with vancomycin and Zosyn. Nonweightbearing status. Medihoney dressings. Awaiting surgery's evaluation of his mid calf abscess. TID: [id number] RECEIPT: [id number]
--- NOTE | 2024-04-17 08:52 | NUR ---
PAIN Patient complaining of 8/10 pain at rest, iv pain medication provided for patient for primary nurse [facility] [employer]IST per unit policy.
--- NOTE | 2024-04-17 09:41 | HMCIMG ---
CHEST 1VW HISTORY: Shortness of breath COMPARISON: 11/11/2023 FINDINGS: A frontal projection of the chest was obtained. Mild bilateral pulmonary infiltrates are seen may be related to mild pulmonary vascular congestion with possible superimposed pneumonitis. The heart is borderline enlarged. Degenerative changes are seen. No evidence of aortic calcification is seen. IMPRESSION: 1. Mild bilateral pulmonary infiltrates are seen may be related to mild pulmonary vascular congestion with possible superimposed pneumonitis.
--- NOTE | 2024-04-17 10:19 | PN ---
[facility] PROGRESS NOTE Date of Service: Apr 17, 2024 Time of Service: 10:16 SUBJECTIVE: The patient has been seen and examined during my rounding today, alert oriented x3, he is getting IV antibiotics, BP 150/87, getting good pain control with current medical management, rest of the vital signs unremarkable, afebrile, saturating normal on room air. He denied chest pain, shortness shortness for breath, no nausea, no vomiting. Blood work reviewed, as well as imaging results, discussed with the patient. 04/16 the patient has been seen and examined earlier this morning during my rounding, no acute events overnight, during my visit he remains comfortably in bed, alert oriented x3, hemodynamically stable, getting IV antibiotics, no chest pain, no shortness a breath, no nausea, no vomiting, no abdominal discomfort, no family members at bedside during my visit. 04/17 patient was examined in the room, he remains very lethargic. He is alert and oriented x3. He is having shallow breathing. We will order chest x-ray and start IS. Discussed plan with the patient he verbalized understanding. No family at bedside. Discussed plan with Dr. Blakely as well. REVIEW OF SYSTEMS CONSTITUTIONAL: Denies fevers, chills, or night sweats. No unintentional weight loss reported. NEUROLOGICAL: Denies headache, amaurosis fugax, motor weakness, sensory deficit, vertigo/spinning sensation, gait abnormalities, or tremors. ENT: No hearing loss, otalgia, otorrhea, rhinitis, rhinorrhea, hoarseness, or sore throat. CARDIOVASCULAR: Denies any exertional angina, dyspnea on exertion, orthopnea, paroxysmal nocturnal dyspnea, palpitations, life-threatening arrhythmias, claudication. PULMONARY: Denies any shortness of breath, cough, phlegm/sputum, hemoptysis, pleuritic chest pain. SLEEP: Denies morning headaches, daytime somnolence or napping. Denies difficulty falling asleep, staying asleep, waking from sleep. Denies knowledge of snoring. GASTROINTESTINAL: Denies any type of dysphagia to either liquids or solids. Denies nausea, vomiting, pyrosis, early satiety, abdominal pain, diarrhea, constipation, or changes in stool consistency or caliber. Denies coffee-ground emesis, hematemesis, hematochezia, or melanotic stools. GENITOURINARY: Denies frequency, urgency, nocturia, hematuria or incontinence (Storage/Irritative symptoms.) Low urinary stream, straining to void, urinary intermittency or hesitancy, splitting of the voiding stream, terminal dribbling. ENDOCRINOLOGIC: Denies polyuria, polydipsia, polyphagia or heat/cold intolerances. HEMATOLOGIC: Denies thrombophilia/previous clots, or coagulopathy/bleeding disorders. ONCOLOGIC: Denies personal history of malignancy. DERMATOLOGIC: Denies rashes or pruritus. PSYCHIATRIC: Denies any suicidal or homicidal ideation. Denies hallucinations. PHYSICAL EXAM GENERAL APPEARANCE: The patient is awake, alert, and oriented, in no acute cardiopulmonary distress. NEUROLOGICAL: Cranial nerves II-XII grossly intact. Motor is 5/5 in bilateral upper and lower extremities proximal to distal. No sensory deficits. HEENT: Face is symmetric. Pupils are equal and reactive. Extraocular movements are intact. NECK: Supple. No JVD. No thyromegaly. No submental, submandibular, pre- /postauricular, occipital or supraclavicular lymphadenopathy. CHEST: Normal chest expansion. No Telemetry. LUNGS: Absence of any rales, rhonchi or any wheezing. CARDIOVASCULAR: Regular. S1 and S2 normal. No appreciable rubs, murmurs or gallops. ABDOMEN: Soft, nontender, and nondistended. There is no rebound, voluntary guarding, or rigidity. : Deferred. No Abrams. EXTREMITIES: Non-edematous and not cyanotic. No clubbing. Good capillary refill. SKIN: No skin breakdown. Vital Signs (last 8hr) Date Time Temp Pulse Resp B/P (MAP) Pulse Ox O2 Delivery O2 Flow Rate FiO2 04/17/24 08:00 98.2 104 18 136/87 93 Nasal Cannula 3.0 28 04/17/24 04:24 98.4 104 18 129/76 94 Nasal Cannula 2.0 24 LABS: Laboratory: Test 04/17/24 08:20 04/17/24 05:13 04/17/24 05:08 04/16/24 05:57 Range/Units Vancomycin Level Trough 20.7 #H 10.0-20.0 UG/ML Whole Blood Glucose 230 H 70-110 MG/DL White Blood Count 8.7 4.8-10.8 K/uL Red Blood Count 2.88 L 4.50-6.20 MIL/uL Hemoglobin 9.0 L 14.0-18.0 g/dL Hematocrit 27.1 L 42-54 % Mean Corpuscular Volume 94.1 79-99 fL Mean Corpuscular Hemoglobin 31.3 27.0-33.0 pg Mean Corpuscular Hemoglobin Concent 33.2 32.0-36.0 g/dL Red Cell Distribution Width 12.3 11.0-15.5 % Platelet Count 405 H 130-400 K/uL Mean Platelet Volume 9.8 7.5-10.5 fL Nucleated Red Blood Cells 0.0 0.0-0.19 % Sodium Level 134 L 136-145 mmol/L Potassium Level 4.0 3.5-5.1 mmol/L Chloride Level 101 101-111 mmol/L Carbon Dioxide Level 25 21-32 mmol/L Blood Urea Nitrogen 13 7-18 mg/dL Creatinine 1.2 0.5-1.3 mg/dL Glomerular Filtration Rate Calc 71 >90 mL/min Random Glucose 226 H 70-105 mg/dL Total Calcium 8.2 L 8.5-10.1 mg/dL Magnesium Level 1.90 1.80-2.40 mg/dL Total Bilirubin 0.6 0.2-1.0 mg/dL Aspartate Amino Transf (AST/SGOT) 15 10-37 U/L Alanine Aminotransferase (ALT/SGPT) 11 L 12-78 U/L Alkaline Phosphatase 79 50-136 U/L Total Protein 7.0 6.0-8.3 g/dL Albumin 1.8 L 3.5-5.0 g/dL Bedside Glucose Comment Notified Nurse Current Medications Medications (Trade) Dose Ordered Sig/Jl Route PRN Reason Start Time Stop Time Status Last Admin Dose Admin Aspirin (Aspirin 81mg Ec Tab) 81 mg DAILY PO 04/15/24 09:00 05/15/24 08:59 04/17/24 08:54 81 MG Atorvastatin Calcium (LIPItor 40MG) 40 mg HS PO 04/14/24 21:00 05/14/24 20:59 04/16/24 20:13 40 MG Clopidogrel Bisulfate (plaVIX 75MG) 75 mg DAILY PO 04/16/24 12:30 05/16/24 12:29 04/17/24 08:54 75 MG Dextrose (D50w) 50 ml AD PRN IV HYPOGLYCEMIA PROTOCOL 04/13/24 23:00 05/13/24 22:59 Famotidine (Pepcid 20mg Tab) 20 mg BID PO 04/14/24 09:00 05/14/24 08:59 04/17/24 08:54 20 MG Furosemide (LASix 20MG TAB) 20 mg DAILY PO 04/18/24 09:00 05/18/24 08:59 UNV Glucagon (Glucagon 1mg Kit) 1 mg AD PRN IM HYPOGLYCEMIA PROTOCOL 04/13/24 23:00 05/13/24 22:59 Hydralazine HCl (APRESOLine 20MG INJ) 10 mg Q6H PRN IV For:SBP above 160;DBP above 90 04/13/24 23:00 05/13/24 22:59 04/16/24 20:13 10 MG Insulin Human Regular (humuLIN R 100 UNIT/ML 3ML) INSULIN SLIDING SCAL... ACHS SQ 04/14/24 07:30 05/14/24 07:29 04/17/24 06:08 4 UNIT Leptospermum Honey (Medihoney) 1 appl DAILY TP 04/15/24 09:00 05/15/24 08:59 04/16/24 08:58 1 APPL Magnesium Sulfate 50 ml @ 0 mls/hr PROTOCOL IV 04/14/24 13:00 04/14/24 12:35 DC Magnesium Sulfate 50 ml @ 0 mls/hr PROTOCOL PRN IV OTHER [SEE ORDER COMMENTS] 04/13/24 23:00 05/13/24 22:59 04/16/24 12:14 0 MLS/HR Metoprolol Tartrate (loprESSOR) 5 mg Q4H PRN IV INCREASED HEART RATE 04/15/24 11:30 05/15/24 11:29 Metoprolol Tartrate (loprESSOR) 12.5 mg BID PO 04/14/24 21:00 04/15/24 11:05 DC 04/15/24 10:06 12.5 MG Metoprolol Tartrate (loprESSOR) 25 mg BID PO 04/15/24 21:00 05/15/24 20:59 04/17/24 08:54 25 MG Morphine Sulfate (morPHINE 2MG SYG) 2 mg Q4H PRN IV MODERATE PAIN (4-6) 04/13/24 23:00 04/20/24 22:59 04/17/24 08:47 2 MG Ondansetron HCl (zoFRAN 4MG INJ) 4 mg Q6H PRN IV NAUSEA/VOMITING 04/13/24 23:00 05/13/24 22:59 Piperacillin Sod/ Tazobactam Sod 50 ml @ 12.5 mls/hr Q8H IV 04/14/24 01:30 04/24/24 01:29 04/17/24 09:51 12.5 MLS/HR Piperacillin Sod/ Tazobactam Sod (Zosyn 3.375gm+NS 50ml) 3.375 gm Q12H STAT IV 04/13/24 17:26 04/13/24 17:33 DC 04/13/24 20:52 3.375 GM Potassium Chloride 100 ml @ 100 mls/hr AD PRN IV POTASSIUM PROTOCOL 04/13/24 23:00 05/13/24 22:59 Potassium Chloride (K-Dur/Klor-Con 20meq) 20 meq AD PRN PO POTASSIUM PROTOCOL 04/13/24 23:00 05/13/24 22:59 04/16/24 08:58 20 MEQ Potassium Chloride (KCl 10% Elixir 20meq/15ml) 20 meq AD PRN PO POTASSIUM PROTOCOL 04/13/24 23:00 05/13/24 22:59 Vancomycin HCl 250 ml @ 125 mls/hr ONCE IV 04/13/24 23:00 04/13/24 23:06 DC Vancomycin HCl 250 ml @ 125 mls/hr Q12H IV 04/14/24 08:00 04/14/24 09:03 DC Vancomycin HCl 250 ml @ 125 mls/hr Q12H IV 04/14/24 09:30 04/15/24 09:16 DC 04/14/24 21:52 125 MLS/HR Vancomycin HCl 250 ml @ 125 mls/hr Q12H IV 04/15/24 21:30 04/17/24 09:02 DC 04/16/24 20:50 125 MLS/HR Vancomycin HCl (Vancomycin 750mg) 750 mg Q12H IVPB 04/17/24 21:30 04/27/24 21:29 Vancomycin HCl (Vancomycin Protocol) 1 each AD IV 04/13/24 17:26 04/27/24 17:25 DIAGNOSTICS / RADIOLOGY: [ ] ASSESSMENT: Infected right leg cellulitis with abscess POA Osteomyelitis anterior aspect of the calcaneus with adjacent cellulitis/myositis, POA Peripheral arterial disease POA Uncontrolled diabetes POA Hypertension POA Hyperlipidemia POA Normocytic normochromic anemia POA History of right foot amputation POA History of left great toe amputation POA History of diabetic foot ulcers POA PLAN: Patient to be admitted to the medical-surgical floor Continue cardiac diet We will order chest x-ray now, we will start Lasix 20 mg p.o. daily Continue broad-spectrum IV antibiotics Infectious disease consultation requested, follow input and recommendation Surgical consultation requested, follow input and recommendation MRI of the right foot showing osteomyelitis Continue on Famotidine 20 mg p.o. bid for GI prophylaxis We will replace electrolytes as needed per protocol We will continue on insulin sliding scale AC & HS with hypoglycemia protocol Continue prn medication for fever,pain,cough and nausea Home medications reviewed and reconciled Arterial Doppler with finding of atherosclerotic disease as well as peripheral vascular disease Replace electrolytes IV per protocol We will request labs in am Further orders to follow depending on above results Disposition: The patient remains admitted to the medical floor, MRI with findings suspicious of osteomyelitis involving the anterior aspect of the calcaneus with the adjacent cellulitis/myositis changes. Continue broad-spectrum IV antibiotics continue to follow podiatry and infectious disease input recommendation. Surgical consultation requested, continue to follow input and recommendation. Arterial ultrasound with findings of peripheral arterial disease, cardiology consultation requested, we will follow input and recommendation. Plan of action discussed with the patient, all questions answered, agreed and understood the information provided. ATTESTATION BY PHYSICIAN I have seen and examined the patient. I reviewed the documentation, medical decision making, and treatment plan as noted by the mid-level provider above. I agree with the findings and plan of care. JANNET BLAKELY MD, [facility] Apr 17, 2024 10:19
--- NOTE | 2024-04-17 12:03 | NUR ---
RECEIVED CALL FROM LAB REGARDING D-DIMER LEVEL OF [id number]. OANH JACKSON MADE AWARE OF CRITICAL LAB VALUE
--- NOTE | 2024-04-17 14:46 | PN ---
INFECTIOUS DISEASE PROGRESS NOTE Date of Service: Apr 17, 2024 SUBJECTIVE: This is a 59-year-old male patient with past medical history of diabetes mellitus, TIA and amputation of the right foot who presented to the hospital with chief complaint of a draining wound to the right posterior leg. A CT of the right lower extremities showed focal area with air collection in the mid calf levels suggestive of an abscess. General surgery following patient. The final Wound cultures from the right lower extremity came back positive for Enterococcus faecalis and Escherichia coli and the right heel wound cultures came back positive for Pseudomonas aeruginosa and E coli. Patient is awake, alert and oriented x 3. Patient's WBC trended down to 8.7 this morning and no reports of fever, temperature is 98.2. The final wound cultures results from the right heel came back positive for Pseudomonas aeruginosa and E coli. Continues with erythema on the right posterior lower extremity. Continues on vancomycin and Zosyn. Per report patient is pending cardiology evaluation. We will continue to monitor patient's care. PHYSICAL EXAM EYES: Anicteric. Pupils equal and reactive. HENT: No oral thrush seen, moist Oral mucosa. NECK: Supple, no JVD or thyromegaly. LUNGS: Good air entry. No rales, no rhonchi. CARDIOVASCULAR: S1, S2 regular. No murmur heard. ABDOMEN: Soft, non tender, bowel sounds present, no organomegaly. CENTRAL NERVOUS SYSTEM: Awake, alert, oriented x 3. SKIN: No rashes, no swelling. Right lower extremity and right foot diabetic ulcer. LYMPHATICS: No peripheral lymphadenopathy. MUSCULOSKELETAL: No joint swelling, erythema or tenderness. EXTREMITIES: No cyanosis or clubbing. Right foot amputation diabetic ulcer. BACK: No deformity, no pressure ulcer. GENITOURINARY: No dysuria or hematuria. Vital Sign (Last 12 Hours) 04/17/24 04/17/24 04/17/24 04:24 08:00 11:25 Temp 98.4 98.2 98.2 Pulse 104 104 92 Resp 18 18 18 B/P (MAP) 129/76 136/87 140/90 Pulse Ox 94 93 96 O2 Delivery Nasal Cannula Nasal Cannula Room Air O2 Flow Rate 2.0 3.0 FiO2 24 28 28 Intake & Output (last 24hrs) 04/16/24 04/16/24 04/17/24 15:00 23:00 07:00 Intake Total 600 ml 300.0 ml Output Total 1100 ml Balance 600 ml -800.0 ml LABS: Laboratory: Test 04/17/24 10:53 04/17/24 10:30 04/17/24 08:20 04/17/24 05:08 Range/Units Whole Blood Glucose 224 H 70-110 MG/DL D-Dimer Quantitative (PE/DVT) 2138 *H 0-500 ng/mL Vancomycin Level Trough 20.7 #H 10.0-20.0 UG/ML White Blood Count 8.7 4.8-10.8 K/uL Red Blood Count 2.88 L 4.50-6.20 MIL/uL Hemoglobin 9.0 L 14.0-18.0 g/dL Hematocrit 27.1 L 42-54 % Mean Corpuscular Volume 94.1 79-99 fL Mean Corpuscular Hemoglobin 31.3 27.0-33.0 pg Mean Corpuscular Hemoglobin Concent 33.2 32.0-36.0 g/dL Red Cell Distribution Width 12.3 11.0-15.5 % Platelet Count 405 H 130-400 K/uL Mean Platelet Volume 9.8 7.5-10.5 fL Nucleated Red Blood Cells 0.0 0.0-0.19 % Sodium Level 134 L 136-145 mmol/L Potassium Level 4.0 3.5-5.1 mmol/L Chloride Level 101 101-111 mmol/L Carbon Dioxide Level 25 21-32 mmol/L Blood Urea Nitrogen 13 7-18 mg/dL Creatinine 1.2 0.5-1.3 mg/dL Glomerular Filtration Rate Calc 71 >90 mL/min Random Glucose 226 H 70-105 mg/dL Total Calcium 8.2 L 8.5-10.1 mg/dL Magnesium Level 1.90 1.80-2.40 mg/dL Total Bilirubin 0.6 0.2-1.0 mg/dL Aspartate Amino Transf (AST/SGOT) 15 10-37 U/L Alanine Aminotransferase (ALT/SGPT) 11 L 12-78 U/L Alkaline Phosphatase 79 50-136 U/L Total Protein 7.0 6.0-8.3 g/dL Albumin 1.8 L 3.5-5.0 g/dL Test 04/16/24 05:57 Range/Units Bedside Glucose Comment Notified Nurse ASSESSMENT: Right Calcaneal osteomyelitis. Right lower extremity wound infection with Enterococcus faecalis and E coli. Right foot wound infection with Pseudomonas aeruginosa and E coli. Leukocytosis. Diabetes mellitus. Peripheral vascular disease. History of amputation of the right foot. PLAN: Continue vancomycin per pharmacy protocol. Continue Zosyn IV. 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 Continue pain management. Continue monitoring glucose levels. We will monitor electrolytes. This case was reviewed and discussed with my supervising physician and the above assessment and plan was formulated and agreed upon. ATTESTATION BY PHYSICIAN I have seen and examined the patient. I reviewed the documentation, medical decision making, and treatment plan as noted by the mid-level provider above. I agree with the findings and plan of care. MÓNICA MOSQUEDA MD, [facility] Apr 17, 2024 14:46
--- NOTE | 2024-04-17 16:25 | PN ---
Cardiology Progress Note Date of Service: 04/17/2024 Attending Lottery Manager: Dr. Shai Vivar Primary Lottery Manager: Dr. Sarah Vernon Reason for Consult: PAD Problem List: -Nonhealing ulcer (E. coli, Pseudomonas) with osteomyelitis affecting the anterior aspect of the calcaneus with adjacent cellulitis/myositis of the right foot -Nonhealing ulcer (E. coli, Enterococcus) with surround cellulitis affecting the right calf -Concern for PAD affecting the right lower extremity -Previous diabetic foot ulcer s/p right Chopart's amputation -Leukocytosis -Elevated D Dimer level -Uncontrolled DM -HTN -HLP -CAD s/p PCI with ANEL placement (MOF 2.5x22 mm) in the distal OM2 and ANEL placement (MOF 3.0x18 mm) in the mid OM2 done on 05/30/[address] Leone -Residual CAD (diffuse 50-75% stenosis in the distal-apical LAD and 50-70% stenosis in the proximal RCA identified on LHC done on 05/30/2023 -TIA and h/o ischemic CVA -Normocytic normochromic anemia -Noncompliance Subjective: This is a 59y/o male who was seen and evaluated at the bedside today. Vitals/Labs Vital Signs Date Time Temp Pulse Resp B/P (MAP) Pulse Ox O2 Delivery O2 Flow Rate FiO2 04/17/24 14:47 91 18 N/Cannula Low lpm 3.0 32 04/17/24 11:25 98.2 140/90 96 General: Awake and alert. No acute distress. Chronically ill appearing. Ill kept. HEENT: Normocephalic, atraumatic. EOMI. Oral mucosa was moist. Neck: No masses, JVD, or carotid bruits. Lungs: No respiratory distress. SCM. Bilateral air entry. Clear to auscultation bilaterally. No obvious wheezing, rales, or rhonchi noted. Cardio: Regular rate. Normal S1 and S2. No obvious murmurs, rubs, or gallops. Abdomen: Soft, nontender, nondistended. No organomegaly. Normoactive bowel sounds x 4 quadrants. Extremities. No edema, clubbing, or cyanosis. Palpable pulses felt on the right AT and PT arteries, verified via Doppler ultrasound. The right Chopart amputation is wrapped in a bulky dressing. Neuro: Cranial nerves II through XII are grossly intact. No obvious focal deficits identified. Laboratory Tests 04/17/24 05:08 Assessment: -Nonhealing ulcer (E. coli, Pseudomonas) with osteomyelitis affecting the anterior aspect of the calcaneus with adjacent cellulitis/myositis of the right foot -Nonhealing ulcer (E. coli, Enterococcus) with surround cellulitis affecting the right calf -Concern for PAD affecting the right lower extremity -Previous diabetic foot ulcer s/p right Chopart's amputation -Leukocytosis -Elevated D Dimer level -Uncontrolled DM -HTN -HLP -CAD s/p PCI with ANEL placement (MOF 2.5x22 mm) in the distal OM2 and ANEL placement (MOF 3.0x18 mm) in the mid OM2 done on 05/30/[address] Leone -Residual CAD (diffuse 50-75% stenosis in the distal-apical LAD and 50-70% stenosis in the proximal RCA identified on LHC done on 05/30/2023 -TIA and h/o ischemic CVA -Normocytic normochromic anemia -Noncompliance Plan: 1. Concern for PAD affecting the right lower extremity -PE: The right AT and PT pulses were palpable. -The CTA of the AA with BLE runoff identified patent vessels without significant stenosis throughout the bilateral lower extremities. -In addition, the TCOM analysis confirmed that the patient has sufficient blood flow for wound healing. -The above mentioned findings indicate that the patient does not have any significant underlying PAD. As a result, no further invasive percutaneous peripheral intervention is required. -Instead, we recommend aggressive wound care and IV antibiotic therapy. 2. CAD s/p PCI with ANEL placement (MOF 2.5x22 mm) in the distal OM2 and ANEL placement (MOF 3.0x18 mm) in the mid OM2 done on 05/30/[address] Leone -Stable -The patient will continue on aspirin 81 mg daily, clopidogrel 75 mg daily, metoprolol tartrate 25 mg BID, and atorvastatin 40 mg QHS. The patient will remain on DAPT for a minimum of 1 year. We will be signing off of the case. Please have the patient follow up with Cardiology, Dr. Sarah Vernon, 2-4 weeks after discharge. This case was discussed with my Supervising Physician, Dr. Shai Vivar, and the above mentioned plan was formulated and agreed upon. -Progress note written by David Granados, MSN, OCCUPATIONAL THERAPY AIDES TEACHER, AGACNP- DAVID GRANADOS NP Apr 17, 2024 16:25
--- NOTE | 2024-04-17 17:32 | PN ---
Interval history: This 59-year-old male seen in his room resting Patient has developed a little more eschar and posterior calf wound at this time Patient has continued with warm compresses and has began to drain Patient is likely to need debridement this hospitalization Physical exam General: Awake alert and oriented Heart: Regular rate and rhythm} Lungs: Clear to auscultation no distress Abdomen: [Soft, nontender, nondistended Right lower extremity with eschar and serosanguineous drainage Assessment : This is a 59-year-old male with right lower extremity calf wound Plan: Dr. Freeman to be updated on patient's status Patient to continue with warm compresses Possible debridement Saturday Surgical team to follow patient closely Patient to continue with IV antibiotics Vitals/Labs Vital Signs Date Time Temp Pulse Resp B/P (MAP) Pulse Ox O2 Delivery O2 Flow Rate FiO2 04/17/24 16:55 98.2 102 19 132/75 97 Room Air 21 04/17/24 14:47 3.0 Laboratory Tests 04/17/24 05:08 Medications Current Medications Vancomycin HCl 1 gm ONCE ONCE IV; Start 04/13/24 at 17:30; Stop 04/13/24 at 17:32; Status DC Vancomycin HCl 1 each AD IV; Start 04/13/24 at 17:26; Stop 04/27/24 at 17:25 Piperacillin Sod/ Tazobactam Sod 3.375 gm Q12H STAT IV Last administered on 04/13/24at 20:52; Start 04/13/24 at 17:26; Stop 04/13/24 at 17:33; Status DC Vancomycin HCl 500 ml @ 250 mls/hr ONCE ONCE IV Last administered on 04/13/24at 21:25; Start 04/13/24 at 18:00; Stop 04/13/24 at 19:59; Status DC Vancomycin HCl 250 ml @ 125 mls/hr Q12H IV; Start 04/14/24 at 08:00; Stop 04/14/24 at 09:03; Status DC Sodium Chloride 1,000 ml @ 0 mls/hr ONCE ONCE IV Last administered on 04/13/24at 21:32; Start 04/13/24 at 21:30; Stop 04/13/24 at 21:31; Status DC Ondansetron HCl 4 mg Q6H PRN IV; Start 04/13/24 at 23:00; Stop 05/13/24 at 22:59 Famotidine 20 mg BID PO Last administered on 04/17/24at 08:54; Start 04/14/24 at 09:00; Stop 05/14/24 at 08:59 Vancomycin HCl 250 ml @ 125 mls/hr ONCE IV; Start 04/13/24 at 23:00; Stop 04/13/24 at 23:06; Status DC Piperacillin Sod/ Tazobactam Sod 50 ml @ 12.5 mls/hr Q8H IV Last administered on 04/17/24at 16:50; Start 04/14/24 at 01:30; Stop 04/24/24 at 01:29 Morphine Sulfate 2 mg Q4H PRN IV Last administered on 04/17/24at 08:47; Start 04/13/24 at 23:00; Stop 04/20/24 at 22:59 Hydralazine HCl 10 mg Q6H PRN IV Last administered on 04/16/24at 20:13; Start 04/13/24 at 23:00; Stop 05/13/24 at 22:59 Magnesium Sulfate 50 ml @ 0 mls/hr PROTOCOL PRN IV Last administered on 04/16/24at 12:14; Start 04/13/24 at 23:00; Stop 05/13/24 at 22:59 Potassium Chloride 100 ml @ 100 mls/hr AD PRN IV; Start 04/13/24 at 23:00; Stop 05/13/24 at 22:59 Potassium Chloride 20 meq AD PRN PO; Start 04/13/24 at 23:00; Stop 05/13/24 at 22:59 Potassium Chloride 20 meq AD PRN PO Last administered on 04/16/24at 08:58; Start 04/13/24 at 23:00; Stop 05/13/24 at 22:59 Insulin Human Regular INSULIN SLIDING SCAL... ACHS SQ Last administered on 04/17/24at 17:02; Start 04/14/24 at 07:30; Stop 05/14/24 at 07:29 Dextrose 50 ml AD PRN IV; Start 04/13/24 at 23:00; Stop 05/13/24 at 22:59 Glucagon 1 mg AD PRN IM; Start 04/13/24 at 23:00; Stop 05/13/24 at 22:59 Vancomycin HCl 250 ml @ 125 mls/hr Q12H IV Last administered on 04/14/24at 21:52; Start 04/14/24 at 09:30; Stop 04/15/24 at 09:16; Status DC Potassium Chloride 40 meq ONCE ONCE PO; Start 04/14/24 at 13:00; Stop 04/14/24 at 13:01; Status DC Magnesium Sulfate 50 ml @ 0 mls/hr PROTOCOL IV; Start 04/14/24 at 13:00; Stop 04/14/24 at 12:35; Status DC Aspirin 81 mg DAILY PO Last administered on 04/17/24at 08:54; Start 04/15/24 at 09:00; Stop 05/15/24 at 08:59 Atorvastatin Calcium 40 mg HS PO Last administered on 04/16/24at 20:13; Start 04/14/24 at 21:00; Stop 05/14/24 at 20:59 Metoprolol Tartrate 12.5 mg BID PO Last administered on 04/15/24at 10:06; Start 04/14/24 at 21:00; Stop 04/15/24 at 11:05; Status DC Leptospermum Honey 1 appl DAILY TP Last administered on 04/17/24at 09:00; Start 04/15/24 at 09:00; Stop 05/15/24 at 08:59 Vancomycin HCl 250 ml @ 125 mls/hr Q12H IV Last administered on 04/16/24at 20:50; Start 04/15/24 at 21:30; Stop 04/17/24 at 09:02; Status DC Metoprolol Tartrate 25 mg BID PO Last administered on 04/17/24at 08:54; Start 04/15/24 at 21:00; Stop 05/15/24 at 20:59 Metoprolol Tartrate 5 mg Q4H PRN IV; Start 04/15/24 at 11:30; Stop 05/15/24 at 11:29 Clopidogrel Bisulfate 75 mg DAILY PO Last administered on 04/17/24at 08:54; Start 04/16/24 at 12:30; Stop 05/16/24 at 12:29 Iohexol 50 ml STK-MED ONCE IV; Start 04/16/24 at 18:43; Stop 04/16/24 at 18:44; Status DC Iohexol 35,000 mg STK-MED ONCE IV; Start 04/16/24 at 18:44; Stop 04/16/24 at 18:44; Status DC Vancomycin HCl 750 mg Q12H IVPB; Start 04/17/24 at 21:30; Stop 04/27/24 at 21:29 Furosemide 20 mg DAILY PO; Start 04/18/24 at 09:00; Stop 05/18/24 at 08:59 FELECIA VILA Jr. Apr 17, 2024 17:32
--- NOTE | 2024-04-17 22:00 | HMCIMG ---
NM PULMONARY/LUNG VQ SCAN CLINICAL HISTORY: d-dimer 2138 / SOB COMPARISON: None TECHNIQUE: Ventilation study was performed with 7 mCi of xenon-133 through inhalation route. Perfusion lung imaging study was performed with 5 mCi of technetium macroaggregated through intravenous route. FINDINGS: There is no evidence of segmental or subsegmental perfusion defect. Nonsegmental perfusion defects are also present. IMPRESSION: Normal ventilation perfusion lung imaging study.
[2024-04-17] MEDS: VANCOMYCIN 750MG VIAL IVPB SCH (22:11)
[2024-04-18 04:00] VITALS: BP 133/86; PULSE 96; RESP 19; TEMP 98.9
[2024-04-18 04:38] LABS: HEMATOCRIT 26.4 % (42-54); MEAN CORPUSCULAR HEMOGLOBIN 31.4 pg (27.0-33.0); MEAN CORPUSCULAR HGB CONC 33.7 g/dL (32.0-36.0); MEAN CORPUSCULAR VOLUME 93.3 fL (79-99); RED BLOOD CELL COUNT(AUTO) 2.83 MIL/uL (4.50-6.20); RED CELL DISTRIBUTION WIDTH 12.5 % (11.0-15.5); WHITE BLOOD COUNT (AUTO) 6.6 K/uL (4.8-10.8)
[2024-04-18 05:27] LABS: ALBUMIN 1.7 g/dL (3.5-5.0); BILIRUBIN,TOTAL 0.6 mg/dL (0.2-1.0); CREATININE 1.3 mg/dL (0.5-1.3); TOTAL PROTEIN, SERUM 6.8 g/dL (6.0-8.3)
[2024-04-18 06:30] VITALS: O2SAT 96
--- NOTE | 2024-04-18 07:33 | PN ---
SUBJECTIVE: The patient is a very pleasant 59-year-old diabetic, Latin-[place]os[place] male. White count 6.6, H and H 8.9 and 26.4, platelets 413. BUN 11, creatinine 1.3, albumin 1.7. The patient is afebrile, T-max 99.0, pulse 96, respirations 19, blood pressure 133/86. The patient is being followed by the Cardiology Service. He has been followed for a suspected abscess to his posterior calf, being followed by the Surgery Service, possible debridement of his calf on Saturday. The patient had transcutaneous oxygen measurements that confirmed the patient has sufficient blood flow for healing. CTA bilateral lower extremities identified patent vessels without significant stenosis throughout bilateral lower extremities. REVIEW OF SYSTEMS: CONSTITUTIONAL: No chills, no fevers, no night sweats, no nausea, vomiting, no diarrhea. HEENT: No problems with his eyes, ears, nose or throat. CARDIOVASCULAR: Having no current chest pain. He has no peripheral vascular disease per evaluation by the Cardiology Service. RESPIRATORY: No shortness of breath. GENITOURINARY: No dysuria. GASTROINTESTINAL: No dysphagia. ENDOCRINE: Diabetes. PSYCHIATRIC: Denied any depression. GENITOURINARY: BUN and creatinine 16 and 1.3. MUSCULOSKELETAL: He has osteomyelitis to his right heel. INTEGUMENT: He has an ulcer to the right heel 15 x 15 x 15 mm, mixed granular fibrotic base. He has a posterior calf ulcer. OBJECTIVE: On examination today, right foot is warm. I could not palpate his pedal pulses, a rearfoot amputation on the right, first toe amputation on the left, ulcer plantar right heel is fibrotic 15 x 15 x 15 mm. He has edema, erythema and cellulitis, no exposed bone. He has no evidence of consolidated abscess to his foot. Mild edema and erythema. ASSESSMENT: No peripheral vascular disease right lower extremity per evaluation by the Cardiology Service, suspected right calf abscess being followed by the Surgery Service. The patient's cultures are growing back gram-negative rods, Escherichia coli and Enterococcus faecalis and Pseudomonas aeruginosa. The patient is currently receiving vancomycin and Zosyn. PLAN: Surgery evaluation of his calf ulcer, abscess. We will continue with the IV antibiotics. The patient has a chronic ulcer and chronic osteomyelitis involving the calcaneus and a chronic ulcer to the right heel. Awaiting surgery's evaluation of his calf abscess. I have no recommendations for any foot surgery for this patient. TID: [id number] RECEIPT: [id number]
[2024-04-18 08:00] VITALS: BP 140/89; PULSE 99; RESP 19; TEMP 97.5; O2SAT 95
--- NOTE | 2024-04-18 08:30 | NUR ---
DR. NAVARRETE MADE AWARE PATIENT ON PLAVIX DUE TO HX OF PVD, TIA, AND CAROTID STENOSIS, LAST DOSE RECEIVED 04/17. STATES OKAY TO PROCEED WITH PLAN FOR PROCEDURE TOMORROW.
--- NOTE | 2024-04-18 08:38 | PN ---
59-year-old male with right lower extremity posterior calf wound. Reports the pain is significant and not improving. Has been draining very minimal. Exam Patient is alert and oriented x3 No respiratory distress Abdomen is soft not distended not tender Right lower extremity status post TMA. Posterior right calf with cellulitis extending more than 10 cm around the area of eschar that is fluctuant and has minimal amount of purulent discharge. Very tender to palpation Assessment and plan Patient we need incision and drainage of right posterior calf wound and debridement. He had a regular diet today and we will plan for this tomorrow. Patient is on Plavix. However because this is a superficial skin wound we will not stop it and continue with surgery for tomorrow. Vitals/Labs Vital Signs Date Time Temp Pulse Resp B/P (MAP) Pulse Ox O2 Delivery O2 Flow Rate FiO2 04/18/24 06:30 96 Room Air* 0 21 04/18/24 04:00 99.0 96 19 133/86 Laboratory Tests 04/18/24 04:25 Medications Current Medications Vancomycin HCl 1 gm ONCE ONCE IV; Start 04/13/24 at 17:30; Stop 04/13/24 at 17:32; Status DC Vancomycin HCl 1 each AD IV; Start 04/13/24 at 17:26; Stop 04/27/24 at 17:25 Piperacillin Sod/ Tazobactam Sod 3.375 gm Q12H STAT IV Last administered on 04/13/24at 20:52; Start 04/13/24 at 17:26; Stop 04/13/24 at 17:33; Status DC Vancomycin HCl 500 ml @ 250 mls/hr ONCE ONCE IV Last administered on 04/13/24at 21:25; Start 04/13/24 at 18:00; Stop 04/13/24 at 19:59; Status DC Vancomycin HCl 250 ml @ 125 mls/hr Q12H IV; Start 04/14/24 at 08:00; Stop 04/14/24 at 09:03; Status DC Sodium Chloride 1,000 ml @ 0 mls/hr ONCE ONCE IV Last administered on 04/13/24at 21:32; Start 04/13/24 at 21:30; Stop 04/13/24 at 21:31; Status DC Ondansetron HCl 4 mg Q6H PRN IV; Start 04/13/24 at 23:00; Stop 05/13/24 at 22:59 Famotidine 20 mg BID PO Last administered on 04/17/24at 22:10; Start 04/14/24 at 09:00; Stop 05/14/24 at 08:59 Vancomycin HCl 250 ml @ 125 mls/hr ONCE IV; Start 04/13/24 at 23:00; Stop 04/13/24 at 23:06; Status DC Piperacillin Sod/ Tazobactam Sod 50 ml @ 12.5 mls/hr Q8H IV Last administered on 04/18/24at 07:38; Start 04/14/24 at 01:30; Stop 04/24/24 at 01:29 Morphine Sulfate 2 mg Q4H PRN IV Last administered on 04/17/24at 08:47; Start 04/13/24 at 23:00; Stop 04/20/24 at 22:59 Hydralazine HCl 10 mg Q6H PRN IV Last administered on 04/16/24at 20:13; Start 04/13/24 at 23:00; Stop 05/13/24 at 22:59 Magnesium Sulfate 50 ml @ 0 mls/hr PROTOCOL PRN IV Last administered on 04/16/24at 12:14; Start 04/13/24 at 23:00; Stop 05/13/24 at 22:59 Potassium Chloride 100 ml @ 100 mls/hr AD PRN IV; Start 04/13/24 at 23:00; Stop 05/13/24 at 22:59 Potassium Chloride 20 meq AD PRN PO; Start 04/13/24 at 23:00; Stop 05/13/24 at 22:59 Potassium Chloride 20 meq AD PRN PO Last administered on 04/16/24at 08:58; Start 04/13/24 at 23:00; Stop 05/13/24 at 22:59 Insulin Human Regular INSULIN SLIDING SCAL... ACHS SQ Last administered on 04/18/24at 07:41; Start 04/14/24 at 07:30; Stop 05/14/24 at 07:29 Dextrose 50 ml AD PRN IV; Start 04/13/24 at 23:00; Stop 05/13/24 at 22:59 Glucagon 1 mg AD PRN IM; Start 04/13/24 at 23:00; Stop 05/13/24 at 22:59 Vancomycin HCl 250 ml @ 125 mls/hr Q12H IV Last administered on 04/14/24at 21:52; Start 04/14/24 at 09:30; Stop 04/15/24 at 09:16; Status DC Potassium Chloride 40 meq ONCE ONCE PO; Start 04/14/24 at 13:00; Stop 04/14/24 at 13:01; Status DC Magnesium Sulfate 50 ml @ 0 mls/hr PROTOCOL IV; Start 04/14/24 at 13:00; Stop 04/14/24 at 12:35; Status DC Aspirin 81 mg DAILY PO Last administered on 04/17/24at 08:54; Start 04/15/24 at 09:00; Stop 05/15/24 at 08:59 Atorvastatin Calcium 40 mg HS PO Last administered on 04/17/24at 22:10; Start 04/14/24 at 21:00; Stop 05/14/24 at 20:59 Metoprolol Tartrate 12.5 mg BID PO Last administered on 04/15/24at 10:06; Start 04/14/24 at 21:00; Stop 04/15/24 at 11:05; Status DC Leptospermum Honey 1 appl DAILY TP Last administered on 04/17/24at 09:00; Start 04/15/24 at 09:00; Stop 05/15/24 at 08:59 Vancomycin HCl 250 ml @ 125 mls/hr Q12H IV Last administered on 04/16/24at 20:50; Start 04/15/24 at 21:30; Stop 04/17/24 at 09:02; Status DC Metoprolol Tartrate 25 mg BID PO Last administered on 04/17/24at 22:09; Start 04/15/24 at 21:00; Stop 05/15/24 at 20:59 Metoprolol Tartrate 5 mg Q4H PRN IV; Start 04/15/24 at 11:30; Stop 05/15/24 at 11:29 Clopidogrel Bisulfate 75 mg DAILY PO Last administered on 04/17/24at 08:54; Start 04/16/24 at 12:30; Stop 05/16/24 at 12:29 Iohexol 50 ml STK-MED ONCE IV; Start 04/16/24 at 18:43; Stop 04/16/24 at 18:44; Status DC Iohexol 35,000 mg STK-MED ONCE IV; Start 04/16/24 at 18:44; Stop 04/16/24 at 18:44; Status DC Vancomycin HCl 750 mg Q12H IVPB Last administered on 04/17/24at 22:11; Start 04/17/24 at 21:30; Stop 04/27/24 at 21:29 Furosemide 20 mg DAILY PO; Start 04/18/24 at 09:00; Stop 05/18/24 at 08:59 JAZMIN NAVARRETE MD Apr 18, 2024 08:38
[2024-04-18] MEDS: furoSEMIDE 20 MG TABLET PO SCH (09:35)
[2024-04-18 12:08] VITALS: BP 136/81; PULSE 92; RESP 20; TEMP 98.4
--- NOTE | 2024-04-18 14:56 | PN ---
[facility] PROGRESS NOTE Date of Service: Apr 18, 2024 Time of Service: 14:54 SUBJECTIVE: The patient has been seen and examined during my rounding today, alert oriented x3, he is getting IV antibiotics, BP 150/87, getting good pain control with current medical management, rest of the vital signs unremarkable, afebrile, saturating normal on room air. He denied chest pain, shortness shortness for breath, no nausea, no vomiting. Blood work reviewed, as well as imaging results, discussed with the patient. 04/16 the patient has been seen and examined earlier this morning during my rounding, no acute events overnight, during my visit he remains comfortably in bed, alert oriented x3, hemodynamically stable, getting IV antibiotics, no chest pain, no shortness a breath, no nausea, no vomiting, no abdominal discomfort, no family members at bedside during my visit. 04/17 patient was examined in the room, he remains very lethargic. He is alert and oriented x3. He is having shallow breathing. We will order chest x-ray and start IS. Discussed plan with the patient he verbalized understanding. No family at bedside. Discussed plan with Dr. Blakely as well. 04/18 patient was seen and examined in the room, patient was getting his wound care done. Noted right stump necrosis with right cough red and necrotic. Plan will be to do I and D with surgeon tomorrow. No other complaints. Discussed V/Q scan result as it is unremarkable. REVIEW OF SYSTEMS CONSTITUTIONAL: Denies fevers, chills, or night sweats. No unintentional weight loss reported. NEUROLOGICAL: Denies headache, amaurosis fugax, motor weakness, sensory deficit, vertigo/spinning sensation, gait abnormalities, or tremors. ENT: No hearing loss, otalgia, otorrhea, rhinitis, rhinorrhea, hoarseness, or sore throat. CARDIOVASCULAR: Denies any exertional angina, dyspnea on exertion, orthopnea, paroxysmal nocturnal dyspnea, palpitations, life-threatening arrhythmias, claudication. PULMONARY: Denies any shortness of breath, cough, phlegm/sputum, hemoptysis, pleuritic chest pain. SLEEP: Denies morning headaches, daytime somnolence or napping. Denies difficulty falling asleep, staying asleep, waking from sleep. Denies knowledge of snoring. GASTROINTESTINAL: Denies any type of dysphagia to either liquids or solids. Denies nausea, vomiting, pyrosis, early satiety, abdominal pain, diarrhea, constipation, or changes in stool consistency or caliber. Denies coffee-ground emesis, hematemesis, hematochezia, or melanotic stools. GENITOURINARY: Denies frequency, urgency, nocturia, hematuria or incontinence (Storage/Irritative symptoms.) Low urinary stream, straining to void, urinary intermittency or hesitancy, splitting of the voiding stream, terminal dribbling. ENDOCRINOLOGIC: Denies polyuria, polydipsia, polyphagia or heat/cold intoleran leyda. HEMATOLOGIC: Denies thrombophilia/previous clots, or coagulopathy/bleeding disorders. ONCOLOGIC: Denies personal history of malignancy. DERMATOLOGIC: Denies rashes or pruritus. PSYCHIATRIC: Denies any suicidal or homicidal ideation. Denies hallucinations. PHYSICAL EXAM GENERAL APPEARANCE: The patient is awake, alert, and oriented, in no acute cardiopulmonary distress. NEUROLOGICAL: Cranial nerves II-XII grossly intact. Motor is 5/5 in bilateral upper and lower extremities proximal to distal. No sensory deficits. HEENT: Face is symmetric. Pupils are equal and reactive. Extraocular movements are intact. NECK: Supple. No JVD. No thyromegaly. No submental, submandibular, pre- /postauricular, occipital or supraclavicular lymphadenopathy. CHEST: Normal chest expansion. No Telemetry. LUNGS: Absence of any rales, rhonchi or any wheezing. CARDIOVASCULAR: Regular. S1 and S2 normal. No appreciable rubs, murmurs or gallops. ABDOMEN: Soft, nontender, and nondistended. There is no rebound, voluntary guarding, or rigidity. : Deferred. No Abrams. EXTREMITIES: Non-edematous and not cyanotic. No clubbing. Good capillary refill. SKIN: No skin breakdown. Vital Signs (last 8hr) Date Time Temp Pulse Resp B/P (MAP) Pulse Ox O2 Delivery O2 Flow Rate FiO2 04/18/24 12:08 98.4 92 20 136/81 93 Nasal Cannula 2.0 04/18/24 08:00 97.5 99 19 140/89 93 Nasal Cannula LABS: Laboratory: Test 04/18/24 11:06 04/18/24 04:25 04/17/24 20:40 04/17/24 10:30 Range/Units Whole Blood Glucose 203 H 70-110 MG/DL Bedside Glucose Comment Notified Nurse White Blood Count 6.6 4.8-10.8 K/uL Red Blood Count 2.83 L 4.50-6.20 MIL/uL Hemoglobin 8.9 L 14.0-18.0 g/dL Hematocrit 26.4 L 42-54 % Mean Corpuscular Volume 93.3 79-99 fL Mean Corpuscular Hemoglobin 31.4 27.0-33.0 pg Mean Corpuscular Hemoglobin Concent 33.7 32.0-36.0 g/dL Red Cell Distribution Width 12.5 11.0-15.5 % Platelet Count 413 H 130-400 K/uL Mean Platelet Volume 9.7 7.5-10.5 fL Nucleated Red Blood Cells 0.0 0.0-0.19 % Sodium Level 137 136-145 mmol/L Potassium Level 4.0 3.5-5.1 mmol/L Chloride Level 105 101-111 mmol/L Carbon Dioxide Level 28 21-32 mmol/L Blood Urea Nitrogen 11 7-18 mg/dL Creatinine 1.3 0.5-1.3 mg/dL Glomerular Filtration Rate Calc 64 >90 mL/min Random Glucose 184 H 70-105 mg/dL Total Calcium 8.2 L 8.5-10.1 mg/dL Total Bilirubin 0.6 0.2-1.0 mg/dL Aspartate Amino Transf (AST/SGOT) 16 10-37 U/L Alanine Aminotransferase (ALT/SGPT) 12 12-78 U/L Alkaline Phosphatase 67 50-136 U/L Total Protein 6.8 6.0-8.3 g/dL Albumin 1.7 L 3.5-5.0 g/dL Vancomycin Level Trough 12.7 # 10.0-20.0 UG/ML D-Dimer Quantitative (PE/DVT) 2138 *H 0-500 ng/mL Test 04/17/24 05:08 Range/Units Magnesium Level 1.90 1.80-2.40 mg/dL Current Medications Medications (Trade) Dose Ordered Sig/Jl Route PRN Reason Start Time Stop Time Status Last Admin Dose Admin Aspirin (Aspirin 81mg Ec Tab) 81 mg DAILY PO 04/15/24 09:00 05/15/24 08:59 04/17/24 08:54 81 MG Atorvastatin Calcium (LIPItor 40MG) 40 mg HS PO 04/14/24 21:00 05/14/24 20:59 04/17/24 22:10 40 MG Clopidogrel Bisulfate (plaVIX 75MG) 75 mg DAILY PO 04/16/24 12:30 05/16/24 12:29 04/17/24 08:54 75 MG Dextrose (D50w) 50 ml AD PRN IV HYPOGLYCEMIA PROTOCOL 04/13/24 23:00 05/13/24 22:59 Famotidine (Pepcid 20mg Tab) 20 mg BID PO 04/14/24 09:00 05/14/24 08:59 04/18/24 09:34 20 MG Furosemide (LASix 20MG TAB) 20 mg DAILY PO 04/18/24 09:00 05/18/24 08:59 04/18/24 09:35 20 MG Glucagon (Glucagon 1mg Kit) 1 mg AD PRN IM HYPOGLYCEMIA PROTOCOL 04/13/24 23:00 05/13/24 22:59 Hydralazine HCl (APRESOLine 20MG INJ) 10 mg Q6H PRN IV For:SBP above 160;DBP above 90 04/13/24 23:00 05/13/24 22:59 04/16/24 20:13 10 MG Insulin Human Regular (humuLIN R 100 UNIT/ML 3ML) INSULIN SLIDING SCAL... ACHS SQ 04/14/24 07:30 05/14/24 07:29 04/18/24 12:09 3 UNIT [facility] 1 appl DAILY TP 04/15/24 09:00 05/15/24 08:59 04/18/24 09:37 1 APPL Magnesium Sulfate 50 ml @ 0 mls/hr PROTOCOL IV 04/14/24 13:00 04/14/24 12:35 DC Magnesium Sulfate 50 ml @ 0 mls/hr PROTOCOL PRN IV OTHER [SEE ORDER COMMENTS] 04/13/24 23:00 05/13/24 22:59 04/16/24 12:14 0 MLS/HR Metoprolol Tartrate (loprESSOR) 5 mg Q4H PRN IV INCREASED HEART RATE 04/15/24 11:30 05/15/24 11:29 Metoprolol Tartrate (loprESSOR) 12.5 mg BID PO 04/14/24 21:00 04/15/24 11:05 DC 04/15/24 10:06 12.5 MG Metoprolol Tartrate (loprESSOR) 25 mg BID PO 04/15/24 21:00 05/15/24 20:59 04/18/24 09:34 25 MG Morphine Sulfate (morPHINE 2MG SYG) 2 mg Q4H PRN IV MODERATE PAIN (4-6) 04/13/24 23:00 04/20/24 22:59 04/18/24 09:44 2 MG Ondansetron HCl (zoFRAN 4MG INJ) 4 mg Q6H PRN IV NAUSEA/VOMITING 04/13/24 23:00 05/13/24 22:59 Piperacillin Sod/ Tazobactam Sod 50 ml @ 12.5 mls/hr Q8H IV 04/14/24 01:30 04/24/24 01:29 04/18/24 09:35 12.5 MLS/HR Piperacillin Sod/ Tazobactam Sod (Zosyn 3.375gm+NS 50ml) 3.375 gm Q12H STAT IV 04/13/24 17:26 04/13/24 17:33 DC 04/13/24 20:52 3.375 GM Potassium Chloride 100 ml @ 100 mls/hr AD PRN IV POTASSIUM PROTOCOL 04/13/24 23:00 05/13/24 22:59 Potassium Chloride (K-Dur/Klor-Con 20meq) 20 meq AD PRN PO POTASSIUM PROTOCOL 04/13/24 23:00 05/13/24 22:59 04/16/24 08:58 20 MEQ Potassium Chloride (KCl 10% Elixir 20meq/15ml) 20 meq AD PRN PO POTASSIUM PROTOCOL 04/13/24 23:00 05/13/24 22:59 Vancomycin HCl 250 ml @ 125 mls/hr ONCE IV 04/13/24 23:00 04/13/24 23:06 DC Vancomycin HCl 250 ml @ 125 mls/hr Q12H IV 04/14/24 08:00 04/14/24 09:03 DC Vancomycin HCl 250 ml @ 125 mls/hr Q12H IV 04/14/24 09:30 04/15/24 09:16 DC 04/14/24 21:52 125 MLS/HR Vancomycin HCl 250 ml @ 125 mls/hr Q12H IV 04/15/24 21:30 04/17/24 09:02 DC 04/16/24 20:50 125 MLS/HR Vancomycin HCl (Vancomycin 750mg) 750 mg Q12H IVPB 04/17/24 21:30 04/27/24 21:29 04/18/24 09:35 750 MG Vancomycin HCl (Vancomycin Protocol) 1 each AD IV 04/13/24 17:26 04/27/24 17:25 DIAGNOSTICS / RADIOLOGY: [ ] ASSESSMENT: Infected right leg cellulitis with abscess POA 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 daily Continue broad-spectrum IV antibiotics Infectious disease consultation requested, follow input and recommendation MRI of the right foot showing osteomyelitis Continue on Famotidine 20 mg p.o. bid for GI prophylaxis We will replace electrolytes as needed per protocol We will continue on insulin sliding scale AC & HS with hypoglycemia protocol Continue prn medication for fever,pain,cough and nausea Home medications reviewed and reconciled Arterial Doppler with finding of atherosclerotic disease as well as peripheral vascular disease Replace electrolytes IV per protocol We will request labs in am Further orders to follow depending on above results Disposition: The patient remains admitted to the medical floor, MRI with findings suspicious of osteomyelitis involving the anterior aspect of the calcaneus with the adjacent cellulitis/myositis changes. Continue broad- spectrum IV antibiotics continue to follow podiatry and infectious disease input recommendation. Surgical consultation requested, continue to follow input and recommendation. Arterial ultrasound with findings of peripheral arterial disease, cardiology consultation requested, we will follow input and recommendation. Plan of action discussed with the patient, all questions answered, agreed and understood the information provided. ATTESTATION BY PHYSICIAN I have seen and examined the patient. I reviewed the documentation, medical decision making, and treatment plan as noted by the mid-level provider above. I agree with the findings and plan of care. BLAKELYJANNET CARVER MD, JANICE B [facility] Apr 18, 2024 14:55
[2024-04-18 16:00] VITALS: BP 144/85; PULSE 93; RESP 20; TEMP 98.7
[2024-04-18 20:00] VITALS: BP 139/85; PULSE 99; RESP 19; TEMP 98; O2SAT 93
[2024-04-19] VITALS (27 sets, daily range): BP systolic 133–150; BP diastolic 76–99; PULSE 76–99; RESP 16–19; TEMP 97.1–98.9; O2SAT 93–95
--- NOTE | 2024-04-19 00:05 | PN ---
INFECTIOUS DISEASE FOLLOWUP NOTE DATE OF SERVICE: 04/18/2024 SUBJECTIVE: The patient is seen and examined at bedside. The patient has no fever, no chills. No nausea, no vomiting, no abdominal pain. No bleeding tendency. No palpitation, no orthopnea. Denied depression or suicidal ideation. The patient has been seen by General Surgery. Plan is for debridement of the right lower leg abscess tomorrow. PHYSICAL EXAMINATION: VITAL SIGNS: Temperature 97.1. EYES: No icterus. Pupils equal and reactive. HENT: No oral thrush seen. Moist oral mucosa. NECK: Supple, no JVD or thyromegaly. LUNGS: Good air entry. No rales, no rhonchi. CARDIOVASCULAR: S1, S2 regular. No murmur heard. ABDOMEN: Full, soft, nontender. Bowel sounds present. CENTRAL NERVOUS SYSTEM: Awake, alert, oriented x 3. No focal deficits. SKIN: No rashes, no itchiness. LYMPHATIC: There is right inguinal lymphadenopathy. BACK: No deformity, no pressure ulcer. EXTREMITIES: Wound involving the right foot stump. An area of abscess and necrosis involving the right lower leg laterally. ASSESSMENT: A 59-year-old male with multiple problems, which include: * Right foot stump infection. * Right leg ulcer and abscess. * Peripheral vascular disease. * Cellulitis. * Debility. PLAN: * Continue wound care. * Continue pain management. * Continue antibiotic. * Continue DVT prophylaxis. * Continue nutritional support. * Continue antiplatelet. TID: [id number] RECEIPT: [id number]
[2024-04-19 04:33] LABS: HEMATOCRIT 25.1 % (42-54); MEAN CORPUSCULAR HEMOGLOBIN 31.1 pg (27.0-33.0); MEAN CORPUSCULAR HGB CONC 33.5 g/dL (32.0-36.0); RED BLOOD CELL COUNT(AUTO) 2.7 MIL/uL (4.50-6.20); RED CELL DISTRIBUTION WIDTH 12.4 % (11.0-15.5); WHITE BLOOD COUNT (AUTO) 7.4 K/uL (4.8-10.8)
[2024-04-19 04:45] LABS: CREATININE 1.2 mg/dL (0.5-1.3); POTASSIUM 3.4 mmol/L (3.5-5.1)
[2024-04-19] MEDS ORDERED: MIDAZOLAM HCL 1 MG/ML 2ML VIAL ONE (08:24)
[2024-04-19] MEDS ORDERED: ketaMINE HCL 100 MG/ML 5ML VIAL IJ ONE (08:25)
[2024-04-19] MEDS ORDERED: LIDOCAINE PF 100MG/5ML (2%) SYRINGE 5ML ONE (08:31)
[2024-04-19] MEDS ORDERED: proPOFol 10 MG/ML 20ML VIAL IV ONE (08:31)
[2024-04-19] MEDS ORDERED: SUCCINYLCHOLINE CHLORIDE 20 MG/ML 10 ML VIAL ONE (08:36)
[2024-04-19] MEDS ORDERED: phenylEPHRINE HCL 10 MG/ML 1ML VIAL IV ONE (08:51)
[2024-04-19] MEDS ORDERED: BUPIvacaine HCL/EPINEPHrine/PF 0.25% 10ML VIAL IJ ONE (09:04)
[2024-04-19] MEDS ORDERED: FENTanyl CITRate PF 50 MCG/1 ML 2ML VIAL ONE (09:05)
[2024-04-19] MEDS: BUPIvacaine HCL/EPINEPHrine/PF 0.25% 10ML VIAL IJ ONE (09:13)
[2024-04-19] MEDS ORDERED: ondanSETRON 4MG INJ ONE (09:14)
--- NOTE | 2024-04-19 09:15 | PN ---
[facility] PROGRESS NOTE Date of Service: Apr 19, 2024 Time of Service: 09:13 SUBJECTIVE: The patient has been seen and examined during my rounding today, alert oriented x3, he is getting IV antibiotics, BP 150/87, getting good pain control with current medical management, rest of the vital signs unremarkable, afebrile, saturating normal on room air. He denied chest pain, shortness shortness for breath, no nausea, no vomiting. Blood work reviewed, as well as imaging results, discussed with the patient. 04/16 the patient has been seen and examined earlier this morning during my rounding, no acute events overnight, during my visit he remains comfortably in bed, alert oriented x3, hemodynamically stable, getting IV antibiotics, no chest pain, no shortness a breath, no nausea, no vomiting, no abdominal discomfort, no family members at bedside during my visit. 04/17 patient was examined in the room, he remains very lethargic. He is alert and oriented x3. He is having shallow breathing. We will order chest x-ray and start IS. Discussed plan with the patient he verbalized understanding. No family at bedside. Discussed plan with Dr. Su as well. 04/18 patient was seen and examined in the room, patient was getting his wound care done. Noted right stump necrosis with right cough red and necrotic. Plan will be to do I and D with surgeon tomorrow. No other complaints. Discussed V/Q scan result as it is unremarkable. 04/19 04/19 patient was evaluated this morning, patient is feeling a lot better. The plan is for him to have incision and drainage of right posterior calf wound and debridement by Dr. Cotton which is scheduled for today. Patient is afebrile, he is saturating 99% on room at this time. WBC at 7.4. Patient has no complaints today. We will continue to monitor, continue with current IV antibiotics per Dr. Rm. REVIEW OF SYSTEMS CONSTITUTIONAL: Denies fevers, chills, or night sweats. No unintentional weight loss reported. NEUROLOGICAL: Denies headache, amaurosis fugax, motor weakness, sensory deficit, vertigo/spinning sensation, gait abnormalities, or tremors. ENT: No hearing loss, otalgia, otorrhea, rhinitis, rhinorrhea, hoarseness, or sore throat. CARDIOVASCULAR: Denies any exertional angina, dyspnea on exertion, orthopnea, paroxysmal nocturnal dyspnea, palpitations, life-threatening arrhythmias, claudication. PULMONARY: Denies any shortness of breath, cough, phlegm/sputum, hemoptysis, pleuritic chest pain. SLEEP: Denies morning headaches, daytime somnolence or napping. Denies difficulty falling asleep, staying asleep, waking from sleep. Denies knowledge of snoring. GASTROINTESTINAL: Denies any type of dysphagia to either liquids or solids. Denies nausea, vomiting, pyrosis, early satiety, abdominal pain, diarrhea, constipation, or changes in stool consistency or caliber. Denies coffee-ground emesis, hematemesis, hematochezia, or melanotic stools. GENITOURINARY: Denies frequency, urgency, nocturia, hematuria or incontinence (Storage/Irritative symptoms.) Low urinary stream, straining to void, urinary intermittency or hesitancy, splitting of the voiding stream, terminal dribbling. ENDOCRINOLOGIC: Denies polyuria, polydipsia, polyphagia or heat/cold intolerances. HEMATOLOGIC: Denies thrombophilia/previous clots, or coagulopathy/bleeding disorders. ONCOLOGIC: Denies personal history of malignancy. DERMATOLOGIC: Denies rashes or pruritus. PSYCHIATRIC: Denies any suicidal or homicidal ideation. Denies hallucinations. PHYSICAL EXAM GENERAL APPEARANCE: The patient is awake, alert, and oriented, in no acute cardiopulmonary distress. NEUROLOGICAL: Cranial nerves II-XII grossly intact. Motor is 5/5 in bilateral upper and lower extremities proximal to distal. No sensory deficits. HEENT: Face is symmetric. Pupils are equal and reactive. Extraocular movements are intact. NECK: Supple. No JVD. No thyromegaly. No submental, submandibular, pre- /postauricular, occipital or supraclavicular lymphadenopathy. CHEST: Normal chest expansion. No Telemetry. LUNGS: Absence of any rales, rhonchi or any wheezing. CARDIOVASCULAR: Regular. S1 and S2 normal. No appreciable rubs, murmurs or gallops. ABDOMEN: Soft, nontender, and nondistended. There is no rebound, voluntary guarding, or rigidity. : Deferred. No Abrams. EXTREMITIES: Non-edematous and not cyanotic. No clubbing. Good capillary refill. SKIN: No skin breakdown. Vital Signs (last 8hr) Date Time Temp Pulse Resp B/P (MAP) Pulse Ox O2 Delivery O2 Flow Rate FiO2 04/19/24 08:06 98.2 90 19 144/84 99 Room Air 04/19/24 04:00 99.0 93 19 133/85 93 Nasal Cannula 2.0 LABS: Laboratory: Test 04/19/24 05:24 04/19/24 03:55 04/18/24 16:14 04/18/24 04:25 Range/Units Whole Blood Glucose 162 H 70-110 MG/DL White Blood Count 7.4 4.8-10.8 K/uL Red Blood Count 2.70 L 4.50-6.20 MIL/uL Hemoglobin 8.4 L 14.0-18.0 g/dL Hematocrit 25.1 L 42-54 % Mean Corpuscular Volume 93.0 79-99 fL Mean Corpuscular Hemoglobin 31.1 27.0-33.0 pg Mean Corpuscular Hemoglobin Concent 33.5 32.0-36.0 g/dL Red Cell Distribution Width 12.4 11.0-15.5 % Platelet Count 425 H 130-400 K/uL Mean Platelet Volume 9.7 7.5-10.5 fL Nucleated Red Blood Cells 0.0 0.0-0.19 % Sodium Level 137 136-145 mmol/L Potassium Level 3.4 L 3.5-5.1 mmol/L Chloride Level 104 101-111 mmol/L Carbon Dioxide Level 28 21-32 mmol/L Blood Urea Nitrogen 10 7-18 mg/dL Creatinine 1.2 0.5-1.3 mg/dL Glomerular Filtration Rate Calc 71 >90 mL/min Random Glucose 161 H 70-105 mg/dL Total Calcium 8.2 L 8.5-10.1 mg/dL Bedside Glucose Comment Notified Nurse Total Bilirubin 0.6 0.2-1.0 mg/dL Aspartate Amino Transf (AST/SGOT) 16 10-37 U/L Alanine Aminotransferase (ALT/SGPT) 12 12-78 U/L Alkaline Phosphatase 67 50-136 U/L Total Protein 6.8 6.0-8.3 g/dL Albumin 1.7 L 3.5-5.0 g/dL Test 04/17/24 20:40 04/17/24 10:30 Range/Units Vancomycin Level Trough 12.7 # 10.0-20.0 UG/ML D-Dimer Quantitative (PE/DVT) 2138 *H 0-500 ng/mL Current Medications Medications (Trade) Dose Ordered Sig/Jl Route PRN Reason Start Time Stop Time Status Last Admin Dose Admin Aspirin (Aspirin 81mg Ec Tab) 81 mg DAILY PO 04/15/24 09:00 05/15/24 08:59 04/17/24 08:54 81 MG Atorvastatin Calcium (LIPItor 40MG) 40 mg HS PO 04/14/24 21:00 05/14/24 20:59 04/18/24 21:11 40 MG Clopidogrel Bisulfate (plaVIX 75MG) 75 mg DAILY PO 04/16/24 12:30 05/16/24 12:29 04/17/24 08:54 75 MG Dextrose (D50w) 50 ml AD PRN IV HYPOGLYCEMIA PROTOCOL 04/13/24 23:00 05/13/24 22:59 Famotidine (Pepcid 20mg Tab) 20 mg BID PO 04/14/24 09:00 05/14/24 08:59 04/18/24 21:11 20 MG Furosemide (LASix 20MG TAB) 20 mg DAILY PO 04/18/24 09:00 05/18/24 08:59 04/18/24 09:35 20 MG Glucagon (Glucagon 1mg Kit) 1 mg AD PRN IM HYPOGLYCEMIA PROTOCOL 04/13/24 23:00 05/13/24 22:59 Hydralazine HCl (APRESOLine 20MG INJ) 10 mg Q6H PRN IV For:SBP above 160;DBP above 90 04/13/24 23:00 05/13/24 22:59 04/16/24 20:13 10 MG Insulin Human Regular (humuLIN R 100 UNIT/ML 3ML) INSULIN SLIDING SCAL... ACHS SQ 04/14/24 07:30 05/14/24 07:29 04/18/24 18:12 3 UNIT Leptospermum Honey ([facility]oney) 1 appl DAILY TP 04/15/24 09:00 05/15/24 08:59 04/18/24 09:37 1 APPL Magnesium Sulfate 50 ml @ 0 mls/hr PROTOCOL IV 04/14/24 13:00 04/14/24 12:35 DC Magnesium Sulfate 50 ml @ 0 mls/hr PROTOCOL PRN IV OTHER [SEE ORDER COMMENTS] 04/13/24 23:00 05/13/24 22:59 04/16/24 12:14 0 MLS/HR Metoprolol Tartrate (loprESSOR) 5 mg Q4H PRN IV INCREASED HEART RATE 04/15/24 11:30 05/15/24 11:29 Metoprolol Tartrate (loprESSOR) 12.5 mg BID PO 04/14/24 21:00 04/15/24 11:05 DC 04/15/24 10:06 12.5 MG Metoprolol Tartrate (loprESSOR) 25 mg BID PO 04/15/24 21:00 05/15/24 20:59 04/18/24 21:11 25 MG Morphine Sulfate (morPHINE 2MG SYG) 2 mg Q4H PRN IV MODERATE PAIN (4-6) 04/13/24 23:00 04/19/24 01:59 DC 04/18/24 18:12 2 MG Ondansetron HCl (zoFRAN 4MG INJ) 4 mg Q6H PRN IV NAUSEA/VOMITING 04/13/24 23:00 05/13/24 22:59 Piperacillin Sod/ Tazobactam Sod 50 ml @ 12.5 mls/hr Q8H IV 04/14/24 01:30 04/24/24 01:29 04/19/24 01:41 12.5 MLS/HR Piperacillin Sod/ Tazobactam Sod (Zosyn 3.375gm+NS 50ml) 3.375 gm Q12H STAT IV 04/13/24 17:26 04/13/24 17:33 DC 04/13/24 20:52 3.375 GM Potassium Chloride 100 ml @ 100 mls/hr AD PRN IV POTASSIUM PROTOCOL 04/13/24 23:00 05/13/24 22:59 Potassium Chloride (K-Dur/Klor-Con 20meq) 20 meq AD PRN PO POTASSIUM PROTOCOL 04/13/24 23:00 05/13/24 22:59 04/16/24 08:58 20 MEQ Potassium Chloride (KCl 10% Elixir 20meq/15ml) 20 meq AD PRN PO POTASSIUM PROTOCOL 04/13/24 23:00 05/13/24 22:59 Vancomycin HCl 250 ml @ 125 mls/hr ONCE IV 04/13/24 23:00 04/13/24 23:06 DC Vancomycin HCl 250 ml @ 125 mls/hr Q12H IV 04/14/24 08:00 04/14/24 09:03 DC Vancomycin HCl 250 ml @ 125 mls/hr Q12H IV 04/14/24 09:30 04/15/24 09:16 DC 04/14/24 21:52 125 MLS/HR Vancomycin HCl 250 ml @ 125 mls/hr Q12H IV 04/15/24 21:30 04/17/24 09:02 DC 04/16/24 20:50 125 MLS/HR Vancomycin HCl (Vancomycin 750mg) 750 mg Q12H IVPB 04/17/24 21:30 04/27/24 21:29 04/18/24 21:11 750 MG Vancomycin HCl (Vancomycin Protocol) 1 each AD IV 04/13/24 17:26 04/27/24 17:25 DIAGNOSTICS / RADIOLOGY: [ ] ASSESSMENT: Infected right leg cellulitis with abscess POA 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 Cotton We will order chest x-ray now, we will start Lasix 20 mg p.o. daily Continue broad-spectrum IV antibiotics Infectious disease consultation requested, follow input and recommendation MRI of the right foot showing osteomyelitis Continue on Famotidine 20 mg p.o. bid for GI prophylaxis We will replace electrolytes as needed per protocol We will continue on insulin sliding scale AC & HS with hypoglycemia protocol Continue prn medication for fever,pain,cough and nausea Home medications reviewed and reconciled Arterial Doppler with finding of atherosclerotic disease as well as peripheral vascular disease Replace electrolytes IV per protocol We will request labs in am Further orders to follow depending on above results Disposition: The patient remains admitted to the medical floor, MRI with findings suspicious of osteomyelitis involving the anterior aspect of the calcaneus with the adjacent cellulitis/myositis changes. Continue broad- spectrum IV antibiotics continue to follow podiatry and infectious disease input recommendation. Surgical consultation requested, continue to follow input and recommendation. Arterial ultrasound with findings of peripheral arterial disease, cardiology consultation requested, we will follow input and recommendation. Plan of action discussed with the patient, all questions answered, agreed and understood the information provided. ATTESTATION BY PHYSICIAN I have seen and examined the patient. I reviewed the documentation, medical decision making, and treatment plan as noted by the mid-level provider above. I agree with the findings and plan of care. JANNET SU MD, [facility] B [facility] Apr 19, 2024 09:15
--- NOTE | 2024-04-19 09:31 | OP ---
Operative Note: DATE OF PROCEDURE: 04/19/24 SURGEON: JAZMIN NAVARRETE MD [employer] ASSEMBLER: [] ANESTHESIA: LMA ANESTHESIOLOGIST/PATIENT RESOURCE SPECIALIST: Benton DAVID PREOPERATIVE DIAGNOSIS: Right calf abscess POSTOPERATIVE DIAGNOSIS: Right calf necrotizing fasciitis SYNOPSIS: [] PROCEDURE: Incision and drainage of right calf abscess and sharp excisional debridement of skin subcutaneous tissue and fascia ESTIMATED BLOOD LOSS: Minimal INDICATIONS: Patient with right calf abscess needing debridement Specimens removed: Necrotic tissue and fascia, cultures Devices left in place: Wound VAC Complications none immediate DESCRIPTION OF PROCEDURE: Patient was brought to the operating room placed on the operating table in a supine position. Once anesthesia was achieved patient was positioned lateral position and right lower extremities prepped and draped in sterile fashion. I then proceeded to unroof the eschar and encountered purulent fluid that was cultured. We then proceeded to uncovered the abscess cavity removing with Bovie cautery skin. And on pressuring and putting pressure on the fascia we found the fascia was necrotic and it there was a tunneling towards the sides. Making this a necrotizing fasciitis. I then sharply excised skin subcutaneous tissue and fascia until there was no more drainage of of purulent material nor any necrotic tissue. At the end of the debridement the wound measured 12 cm long. 4.5 cm wide and 0.5 cm deep. Irrigation was carried out. Hemostasis was obtained wound VAC was placed. Patient tolerated the procedure well JAZMIN NAVARRETE MD Apr 19, 2024 09:31
[2024-04-19] MEDS: MEPERIDINE-PF 25 MG/ML SYG ONE ×2 (10:24→10:29)
[2024-04-19] MEDS: ZOSYN 3.375GM+NS 50ML 50 ML ONE (10:25)
[2024-04-19] MEDS: morPHINE 2 MG SYG IVP PRN (11:31)
[2024-04-19] MEDS: PoTASSium chl 10% ELIXIR 20MEQ 20 MEQ/15 ML UDCUP PO PRN (11:33)
--- NOTE | 2024-04-19 15:04 | PN ---
SUBJECTIVE: The patient is a very pleasant 59-year-old diabetic, Latin-Cypriot male who is followed up for diabetic ulcer to the plantar heel. He had an extensive debridement today and surgery with surgery for the posterior calf ulcer, abscess and debridement of necrotic tissue with application of a wound vacuum. Currently, afebrile at 98.2, blood pressure 150/86, respirations 19. White count 7.4, H and H 84 and 25.1. The patient is currently receiving Medihoney dressings to his left heel wound, IV Zosyn. He has had wound cultures that have grown back Enterococcus faecalis, Escherichia coli and Pseudomonas aeruginosa. 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 Rm. Transcutaneous oxygen measurements and CT angiography of the aorta with bilateral lower extremity runoff suggest healing potential with no peripheral vascular disease noted. OBJECTIVE: On examination today of right foot, I could not palpate his pedal pulses. 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 There is no odor, no pus, no necrosis, no cellulitis. ASSESSMENT: Status post extensive debridement of the right calf secondary to infected diabetic ulcer. The patient has cultures growing back polymicrobial wound infection, receiving Zosyn. He receives Medihoney dressings to the right heel wound. PLAN: He has a wound VAC in place for the heel and he had calf debridement site on the right. We will continue with the wound VAC. Continue with Medihoney dressings to the heel ulcer and continue with the antibiotics per Infectious Disease, currently the Zosyn. Continue to follow the patient closely while in-house. TID: [id number] RECEIPT: [id number]
--- NOTE | 2024-04-19 21:01 | PN ---
INFECTIOUS DISEASE FOLLOWUP NOTE DATE OF SERVICE: 04/19/2024 SUBJECTIVE: The patient is seen and examined at bedside today. The patient has no fever, no chills. No nausea, no vomiting, no abdominal pain. No bleeding tendency. No palpitation or orthopnea. No slurred speech or limb weakness. Tolerating antibiotic. No neck pain or neck swelling. PHYSICAL EXAMINATION:. VITAL SIGNS: Temperature 96.9. EYES: No icterus. Pupils equal and reactive. HENT: No oral thrush seen. Moist oral mucosa. NECK: Supple, no JVD or thyromegaly. LUNGS: Good air entry. No rales, no rhonchi. CARDIOVASCULAR: S1, S2 regular. No murmurs heard. ABDOMEN: Full, soft, nontender. Bowel sounds present. CENTRAL NERVOUS SYSTEM: Awake, alert, oriented x 3. No focal deficits. SKIN: No rashes, no itchiness. LYMPHATIC: There is inguinal lymphadenopathy. BACK: No deformity, no pressure ulcer. EXTREMITIES: Ulcer involving the right foot stump. There is ulcer involving the right lower leg, status post debridement. ASSESSMENT: A 59-year-old male with multiple problems, which include: * Right leg ulcer and abscess, status post debridement. * Right foot stump osteomyelitis. * Cellulitis. * Hypertension. * Diabetes mellitus. * Obesity. PLAN: * Continue Zosyn. * Discontinue vancomycin. * Continue pain management. * Continue wound care. * Continue nutritional support. * Continue DVT prophylaxis. * Monitor electrolytes and correct as needed. TID: [id number] RECEIPT: [id number] [facility]
[2024-04-20] VITALS (7 sets, daily range): BP systolic 126–157; BP diastolic 50–95; PULSE 83–87; RESP 17–19; TEMP 97.8–99.6; O2SAT 94
[2024-04-20 04:17] LABS: BASOPHILS # (AUTO) 0.04 K/uL (0.00-0.20); BASOPHILS % (AUTO) 0.6 % (0.0-5.0); EOSINOPHILS # (AUTO) 0.17 K/uL (0.00-0.70); EOSINOPHILS % (AUTO) 2.4 % (0.0-8.0); HEMATOCRIT 25.7 % (42-54); IMMATURE GRANULOCYTE ABSOLUTE 0.03 K/uL (0-1); LYMPHOCYTES # (AUTO) 1.1 K/uL (1.0-4.8); LYMPHOCYTES % (AUTO) 16.2 % (21.0-51.0); MEAN CORPUSCULAR HEMOGLOBIN 31.3 pg (27.0-33.0); MEAN CORPUSCULAR HGB CONC 33.1 g/dL (32.0-36.0); MEAN CORPUSCULAR VOLUME 94.5 fL (79-99); MONOCYTES # (AUTO) 0.7 K/uL (0.1-1.0); MONOCYTES % (AUTO) 9.2 % (3.0-13.0); NEUTROPHILS % (AUTO) 71.2 % (40.0-77.0); PLATELET COUNT (AUTO) 391 K/uL (130-400); RED BLOOD CELL COUNT(AUTO) 2.72 MIL/uL (4.50-6.20); RED CELL DISTRIBUTION WIDTH 12.4 % (11.0-15.5); WHITE BLOOD COUNT (AUTO) 7.1 K/uL (4.8-10.8)
[2024-04-20 04:29] LABS: CREATININE 1.3 mg/dL (0.5-1.3); POTASSIUM 3.9 mmol/L (3.5-5.1)
--- NOTE | 2024-04-20 06:36 | PN ---
SUBJECTIVE: The patient is a very pleasant 59-year-old diabetic, Latin-Hong Konger male. He is followed up for a diabetic ulcer to his calcaneus. He has had a rearfoot amputation on the right. He is status post extensive debridement of necrotizing fasciitis infection to his right calf by the General Surgery Service and has a wound vacuum in place. He has a white count that is 7.1, H and H 8.5 and 25.7, platelets 391, blood sugar 177. He currently has had wound cultures that have grown back enterococcus faecalis, Escherichia coli, pseudomonas aeruginosa. He is currently receiving IV Zosyn. He is receiving Medihoney dressings to his right heel wound. The patient has a BUN and a creatinine level of 12 and 1.3. The patient is being followed for a right calcaneal osteomyelitis, hypertension, diabetes, obesity, right leg ulcer, abscess, status post debridement. OBJECTIVE: Examination today shows wound vacuum in place and is functioning well to the right. 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 He has a plantar ulcer to the heel on the right 15 x 15 x 15 mm, clean granular wound bed. ASSESSMENT: A 59-year-old male status post extensive debridement of right calf necrotizing fasciitis with wound VAC placement. The patient had transcutaneous oxygen measurements and CT angiography of the abdominal aorta with runoff suggesting healing potential with no peripheral vascular disease noted to the right side. The patient with a polymicrobial wound infection, receiving Zosyn per Infectious Disease. Receiving Medihoney dressings to his right heel. PLAN: We will continue wound VAC therapy for the calf debridement site. Continue with Medihoney to the heel wound. Continue with IV Zosyn. Continue to follow the patient closely while in-house. Anticipate transfer to a facility for continuation of local wound care and IV antibiotics. TID: [id number] RECEIPT: [id number]
[2024-04-20] MEDS: HONEY 1 APPL/ML TUBE TP SCH (08:21)
--- NOTE | 2024-04-20 10:24 | PN ---
[facility] PROGRESS NOTE Date of Service: Apr 20, 2024 Time of Service: 09:55 SUBJECTIVE: The patient has been seen and examined during my rounding today, alert oriented x3, he is getting IV antibiotics, BP 150/87, getting good pain control with current medical management, rest of the vital signs unremarkable, afebrile, saturating normal on room air. He denied chest pain, shortness shortness for breath, no nausea, no vomiting. Blood work reviewed, as well as imaging results, discussed with the patient. 04/16 the patient has been seen and examined earlier this morning during my rounding, no acute events overnight, during my visit he remains comfortably in bed, alert oriented x3, hemodynamically stable, getting IV antibiotics, no chest pain, no shortness a breath, no nausea, no vomiting, no abdominal discomfort, no family members at bedside during my visit. 04/17 patient was examined in the room, he remains very lethargic. He is alert and oriented x3. He is having shallow breathing. We will order chest x-ray and start IS. Discussed plan with the patient he verbalized understanding. No family at bedside. Discussed plan with Dr. Su as well. 04/18 patient was seen and examined in the room, patient was getting his wound care done. Noted right stump necrosis with right cough red and necrotic. Plan will be to do I and D with surgeon tomorrow. No other complaints. Discussed V/Q scan result as it is unremarkable. 04/19 04/19 patient was evaluated this morning, patient is feeling a lot better. The plan is for him to have incision and drainage of right posterior calf wound and debridement by Dr. Cotton which is scheduled for today. Patient is afebrile, he is saturating 99% on room at this time. WBC at 7.4. Patient has no complaints today. We will continue to monitor, continue with current IV antibiotics per Dr. Rm. 04/20/24 patient is seen and evaluated this morning with attending discussed patient's reviewed chart. Patient is alert oriented x3. Status post incision and drainage of right posterior calf wound and debridement intraoperative cultures were sent out. c ase management: LTAC eval: s/p I/D with wound Vac placement: will need care home abt's for Osteomyelitis anterior aspect of the calcaneus. REVIEW OF SYSTEMS CONSTITUTIONAL: Denies fevers, chills, or night sweats. No unintentional weight loss reported. NEUROLOGICAL: Denies headache, amaurosis fugax, motor weakness, sensory deficit, vertigo/spinning sensation, gait abnormalities, or tremors. ENT: No hearing loss, otalgia, otorrhea, rhinitis, rhinorrhea, hoarseness, or sore throat. CARDIOVASCULAR: Denies any exertional angina, dyspnea on exertion, orthopnea, paroxysmal nocturnal dyspnea, palpitations, life-threatening arrhythmias, claudication. PULMONARY: Denies any shortness of breath, cough, phlegm/sputum, hemoptysis, pleuritic chest pain. SLEEP: Denies morning headaches, daytime somnolence or napping. Denies difficulty falling asleep, staying asleep, waking from sleep. Denies knowledge of snoring. GASTROINTESTINAL: Denies any type of dysphagia to either liquids or solids. Denies nausea, vomiting, pyrosis, early satiety, abdominal pain, diarrhea, constipation, or changes in stool consistency or caliber. Denies coffee-ground emesis, hematemesis, hematochezia, or melanotic stools. GENITOURINARY: Denies frequency, urgency, nocturia, hematuria or incontinence (Storage/Irritative symptoms.) Low urinary stream, straining to void, urinary intermittency or hesitancy, splitting of the voiding stream, terminal dribbling. ENDOCRINOLOGIC: Denies polyuria, polydipsia, polyphagia or heat/cold intolerances. HEMATOLOGIC: Denies thrombophilia/previous clots, or coagulopathy/bleeding disorders. ONCOLOGIC: Denies personal history of malignancy. DERMATOLOGIC: Denies rashes or pruritus. PSYCHIATRIC: Denies any suicidal or homicidal ideation. Denies hallucinations. PHYSICAL EXAM GENERAL APPEARANCE: The patient is awake, alert, and oriented, in no acute cardiopulmonary distress. NEUROLOGICAL: Cranial nerves II-XII grossly intact. Motor is 5/5 in bilateral upper and lower extremities proximal to distal. No sensory deficits. HEENT: Face is symmetric. Pupils are equal and reactive. Extraocular movements are intact. NECK: Supple. No JVD. No thyromegaly. No submental, submandibular, pre-/pos tauricular, occipital or supraclavicular lymphadenopathy. CHEST: Normal chest expansion. No Telemetry. LUNGS: Absence of any rales, rhonchi or any wheezing. CARDIOVASCULAR: Regular. S1 and S2 normal. No appreciable rubs, murmurs or gallops. ABDOMEN: Soft, nontender, and nondistended. There is no rebound, voluntary guarding, or rigidity. : Deferred. No Abrams. EXTREMITIES: Non-edematous and not cyanotic. No clubbing. Good capillary refill. SKIN: No skin breakdown. Vital Signs (last 8hr) Date Time Temp Pulse Resp B/P (MAP) Pulse Ox O2 Delivery O2 Flow Rate FiO2 04/20/24 04:00 99.0 87 19 136/88 93 Nasal Cannula 2.0 LABS: Laboratory: Test 04/20/24 05:32 04/20/24 03:38 04/19/24 11:11 04/18/24 16:14 Range/Units Whole Blood Glucose 177 H 70-110 MG/DL White Blood Count 7.1 4.8-10.8 K/uL Red Blood Count 2.72 L 4.50-6.20 MIL/uL Hemoglobin 8.5 L 14.0-18.0 g/dL Hematocrit 25.7 L 42-54 % Mean Corpuscular Volume 94.5 79-99 fL Mean Corpuscular Hemoglobin 31.3 27.0-33.0 pg Mean Corpuscular Hemoglobin Concent 33.1 32.0-36.0 g/dL Red Cell Distribution Width 12.4 11.0-15.5 % Platelet Count 391 130-400 K/uL Mean Platelet Volume 9.7 7.5-10.5 fL Immature Granulocyte % (Auto) 0.4 0-1 % Neutrophils (%) (Auto) 71.2 40.0-77.0 % Lymphocytes (%) (Auto) 16.2 L 21.0-51.0 % Monocytes (%) (Auto) 9.2 3.0-13.0 % Eosinophils (%) (Auto) 2.4 0.0-8.0 % Basophils (%) (Auto) 0.6 0.0-5.0 % Neutrophils # (Auto) 5.0 1.8-7.7 K/uL Lymphocytes # (Auto) 1.1 1.0-4.8 K/uL Monocytes # (Auto) 0.7 0.1-1.0 K/uL Eosinophils # (Auto) 0.17 0.00-0.70 K/uL Basophils # (Auto) 0.04 0.00-0.20 K/uL Absolute Immature Granulocyte (auto 0.03 0-1 K/uL Nucleated Red Blood Cells 0.0 0.0-0.19 % Sodium Level 138 136-145 mmol/L Potassium Level 3.9 3.5-5.1 mmol/L Chloride Level 103 101-111 mmol/L Carbon Dioxide Level 29 21-32 mmol/L Blood Urea Nitrogen 12 7-18 mg/dL Creatinine 1.3 0.5-1.3 mg/dL Glomerular Filtration Rate Calc 64 >90 mL/min Random Glucose 179 H 70-105 mg/dL Total Calcium 8.0 L 8.5-10.1 mg/dL Vancomycin Level Trough 15.6 # 10.0-20.0 UG/ML Bedside Glucose Comment Notified Nurse Current Medications Medications (Trade) Dose Ordered Sig/Jl Route PRN Reason Start Time Stop Time Status Last Admin Dose Admin Aspirin (Aspirin 81mg Ec Tab) 81 mg DAILY PO 04/15/24 09:00 05/15/24 08:59 04/20/24 08:21 81 MG Atorvastatin Calcium (LIPItor 40MG) 40 mg HS PO 04/14/24 21:00 05/14/24 20:59 04/19/24 20:52 40 MG Clopidogrel Bisulfate (plaVIX 75MG) 75 mg DAILY PO 04/16/24 12:30 05/16/24 12:29 04/20/24 08:21 75 MG Dextrose (D50w) 50 ml AD PRN IV HYPOGLYCEMIA PROTOCOL 04/13/24 23:00 05/13/24 22:59 Famotidine (Pepcid 20mg Tab) 20 mg BID PO 04/14/24 09:00 05/14/24 08:59 04/20/24 08:21 20 MG Furosemide (LASix 20MG TAB) 20 mg DAILY PO 04/18/24 09:00 05/18/24 08:59 04/20/24 08:21 20 MG Glucagon (Glucagon 1mg Kit) 1 mg AD PRN IM HYPOGLYCEMIA PROTOCOL 04/13/24 23:00 05/13/24 22:59 Hydralazine HCl (APRESOLine 20MG INJ) 10 mg Q6H PRN IV For:SBP above 160;DBP above 90 04/13/24 23:00 05/13/24 22:59 04/16/24 20:13 10 MG Insulin Human Regular (humuLIN R 100 UNIT/ML 3ML) INSULIN SLIDING SCAL... ACHS SQ 04/14/24 07:30 05/14/24 07:29 04/19/24 21:02 4 UNIT Leptospermum Honey (Medihoney) 1 APPLICATION DAILY TP 04/20/24 09:00 05/20/24 08:59 Leptospermum Honey (Medihoney) 1 appl DAILY TP 04/15/24 09:00 05/15/24 08:59 04/20/24 08:21 1 APPL Magnesium Sulfate 50 ml @ 0 mls/hr PROTOCOL IV 04/14/24 13:00 04/14/24 12:35 DC Magnesium Sulfate 50 ml @ 0 mls/hr PROTOCOL PRN IV OTHER [SEE ORDER COMMENTS] 04/13/24 23:00 05/13/24 22:59 04/16/24 12:14 0 MLS/HR Metoprolol Tartrate (loprESSOR) 5 mg Q4H PRN IV INCREASED HEART RATE 04/15/24 11:30 05/15/24 11:29 Metoprolol Tartrate (loprESSOR) 12.5 mg BID PO 04/14/24 21:00 04/15/24 11:05 DC 04/15/24 10:06 12.5 MG Metoprolol Tartrate (loprESSOR) 25 mg BID PO 04/15/24 21:00 05/15/24 20:59 04/20/24 08:21 25 MG Morphine Sulfate (morPHINE 2MG SYG) 1 mg Q4HPRN PRN IVP MODERATE PAIN (4-6) 04/19/24 11:30 04/26/24 11:29 04/20/24 05:42 1 MG Morphine Sulfate (morPHINE 2MG SYG) 2 mg Q4H PRN IV MODERATE PAIN (4-6) 04/13/24 23:00 04/19/24 01:59 DC 04/18/24 18:12 2 MG Ondansetron HCl (zoFRAN 4MG INJ) 4 mg Q6H PRN IV NAUSEA/VOMITING 04/13/24 23:00 05/13/24 22:59 Piperacillin Sod/ Tazobactam Sod 50 ml @ 12.5 mls/hr Q8H IV 04/14/24 01:30 04/24/24 01:29 12/9/24 01:17 12.5 MLS/HR Piperacillin Sod/ Tazobactam Sod (Zosyn 3.375gm+NS 50ml) 3.375 gm Q12H STAT IV 04/13/24 17:26 04/13/24 17:33 DC 04/13/24 20:52 3.375 GM Potassium Chloride 100 ml @ 100 mls/hr AD PRN IV POTASSIUM PROTOCOL 04/13/24 23:00 05/13/24 22:59 Potassium Chloride (K-Dur/Klor-Con 20meq) 20 meq AD PRN PO POTASSIUM PROTOCOL 04/13/24 23:00 05/13/24 22:59 04/16/24 08:58 20 MEQ Potassium Chloride (KCl 10% Elixir 20meq/15ml) 20 meq AD PRN PO POTASSIUM PROTOCOL 04/13/24 23:00 05/13/24 22:59 04/19/24 16:08 20 MEQ Vancomycin HCl 250 ml @ 125 mls/hr ONCE IV 04/13/24 23:00 04/13/24 23:06 DC Vancomycin HCl 250 ml @ 125 mls/hr Q12H IV 04/14/24 08:00 04/14/24 09:03 DC Vancomycin HCl 250 ml @ 125 mls/hr Q12H IV 04/14/24 09:30 04/15/24 09:16 DC 04/14/24 21:52 125 MLS/HR Vancomycin HCl 250 ml @ 125 mls/hr Q12H IV 04/15/24 21:30 04/17/24 09:02 DC 04/16/24 20:50 125 MLS/HR Vancomycin HCl (Vancomycin 750mg) 750 mg Q12H IVPB 04/17/24 21:30 04/19/24 11:53 DC 04/18/24 21:11 750 MG Vancomycin HCl (Vancomycin Protocol) 1 each AD IV 04/13/24 17:26 04/19/24 11:53 DC DIAGNOSTICS / RADIOLOGY: [ ] ASSESSMENT: Infected right leg cellulitis with abscess POA s/p incision and drainage of righ t posterior calf wound and debridement with WOUND VAC 04/19/24 Osteomyelitis anterior aspect of the calcaneus with adjacent cellulitis/myositis, POA Peripheral arterial disease POA Uncontrolled diabetes POA Hypertension POA Hyperlipidemia POA Normocytic normochromic anemia POA History of right foot amputation POA History of left great toe amputation POA History of diabetic foot ulcers POA physical decondition: immobility/instability due to unstable gait, NWB to right leg PLAN: Patient to be admitted to the medical-surgical floor s/p I and D of left calf wound and debridement Dr. Cotton will follow up intraoperative cultures: ID on board continue with Broad spectrum IV antibiotics cont with local wound as directed by surgical services : Medihoney continue with Vac Therapy WILL BE CHANGE TOMORROW cont with pain management for adequate pain controlled. MRI of the right foot showing osteomyelitis case management: discharged planning. LTAC patient on Telemetry already will order PT service to eval and treat Continue on Famotidine 20 mg p.o. bid for GI prophylaxis We will replace electrolytes as needed per protocol We will continue on insulin sliding scale AC & HS with hypoglycemia protocol Continue prn medication for fever,pain,cough and nausea We will request labs in am Further orders to follow depending on above results Disposition: The patient remains admitted to the medical floor, MRI with findings suspicious of osteomyelitis involving the anterior aspect of the calcaneus with the adjacent cellulitis/myositis changes. Continue broad- spectrum IV antibiotics continue to follow podiatry and infectious disease input recommendation. Surgical consultation requested, continue to follow input and recommendation. Arterial ultrasound with findings of peripheral arterial disease, cardiology consultation requested, we will follow input and recommendation. Plan of action discussed with the patient, all questions answered, agreed and understood the information provided. ATTESTATION BY PHYSICIAN I have seen and examined the patient. I reviewed the documentation, medical decision making, and treatment plan as noted by the resident provider above. I agree with the findings and plan of care. Camilo Rowland MD, ELIZABETH NP Apr 20, 2024 10:24
--- NOTE | 2024-04-20 10:39 | PN ---
This is a 59-year-old male postop day one for I and D of right calf with debridement of subcutaneous tissue and fascia by Dr. Cotton Interval history: This 59-year-old male seen in his room resting Wound VAC with good CO2 right lower extremity Patient's pain controlled Labs unremarkable Vitals stable Physical exam General: Awake alert and oriented Heart: Regular rate and rhythm} Lungs: Clear to auscultation no distress Abdomen: [Soft, nontender, nondistended Right lower extremity with wound VAC in place Assessment : This is a 59-year-old male status post debridement with incision and drainage to right calf and placement of wound VAC Plan: This point in time we will await for progress and wound VAC change likely to be done tomorrow Patient to continue with current medical management We will await recommendations for wound VAC change Patient to continue with IV fluids and IV antibiotics No immediate surgical intervention planned at this time Dr. Cotton to be updated in patient's status and surgical team to follow patient closely. Thank you Vitals/Labs Vital Signs Date Time Temp Pulse Resp B/P (MAP) Pulse Ox O2 Delivery O2 Flow Rate FiO2 04/20/24 04:00 99.0 87 19 136/88 93 Nasal Cannula 2.0 04/19/24 20:00 21 Laboratory Tests 04/20/24 03:38 Medications Current Medications Vancomycin HCl 1 gm ONCE ONCE IV; Start 04/13/24 at 17:30; Stop 04/13/24 at 17:32; Status DC Vancomycin HCl 1 each AD IV; Start 04/13/24 at 17:26; Stop 04/19/24 at 11:53; Status DC Piperacillin Sod/ Tazobactam Sod 3.375 gm Q12H STAT IV Last administered on 04/13/24at 20:52; Start 04/13/24 at 17:26; Stop 04/13/24 at 17:33; Status DC Vancomycin HCl 500 ml @ 250 mls/hr ONCE ONCE IV Last administered on 04/13/24at 21:25; Start 04/13/24 at 18:00; Stop 04/13/24 at 19:59; Status DC Vancomycin HCl 250 ml @ 125 mls/hr Q12H IV; Start 04/14/24 at 08:00; Stop 04/14/24 at 09:03; Status DC Sodium Chloride 1,000 ml @ 0 mls/hr ONCE ONCE IV Last administered on 04/13/24at 21:32; Start 04/13/24 at 21:30; Stop 04/13/24 at 21:31; Status DC Ondansetron HCl 4 mg Q6H PRN IV; Start 04/13/24 at 23:00; Stop 05/13/24 at 22:59 Famotidine 20 mg BID PO Last administered on 04/20/24at 08:21; Start 04/14/24 at 09:00; Stop 05/14/24 at 08:59 Vancomycin HCl 250 ml @ 125 mls/hr ONCE IV; Start 04/13/24 at 23:00; Stop 04/13/24 at 23:06; Status DC Piperacillin Sod/ Tazobactam Sod 50 ml @ 12.5 mls/hr Q8H IV Last administered on 04/20/24at 10:11; Start 04/14/24 at 01:30; Stop 04/24/24 at 01:29 Morphine Sulfate 2 mg Q4H PRN IV Last administered on 04/18/24at 18:12; Start 04/13/24 at 23:00; Stop 04/19/24 at 01:59; Status DC Hydralazine HCl 10 mg Q6H PRN IV Last administered on 04/16/24at 20:13; Start 04/13/24 at 23:00; Stop 05/13/24 at 22:59 Magnesium Sulfate 50 ml @ 0 mls/hr PROTOCOL PRN IV Last administered on 04/16/24at 12:14; Start 04/13/24 at 23:00; Stop 05/13/24 at 22:59 Potassium Chloride 100 ml @ 100 mls/hr AD PRN IV; Start 04/13/24 at 23:00; Stop 05/13/24 at 22:59 Potassium Chloride 20 meq AD PRN PO Last administered on 04/19/24at 16:08; Start 04/13/24 at 23:00; Stop 05/13/24 at 22:59 Potassium Chloride 20 meq AD PRN PO Last administered on 04/16/24at 08:58; Start 04/13/24 at 23:00; Stop 05/13/24 at 22:59 Insulin Human Regular INSULIN SLIDING SCAL... ACHS SQ Last administered on 04/19/24at 21:02; Start 04/14/24 at 07:30; Stop 05/14/24 at 07:29 Dextrose 50 ml AD PRN IV; Start 04/13/24 at 23:00; Stop 05/13/24 at 22:59 Glucagon 1 mg AD PRN IM; Start 04/13/24 at 23:00; Stop 05/13/24 at 22:59 Vancomycin HCl 250 ml @ 125 mls/hr Q12H IV Last administered on 04/14/24at 21:52; Start 04/14/24 at 09:30; Stop 04/15/24 at 09:16; Status DC Potassium Chloride 40 meq ONCE ONCE PO; Start 04/14/24 at 13:00; Stop 04/14/24 at 13:01; Status DC Magnesium Sulfate 50 ml @ 0 mls/hr PROTOCOL IV; Start 04/14/24 at 13:00; Stop 04/14/24 at 12:35; Status DC Aspirin 81 mg DAILY PO Last administered on 04/20/24at 08:21; Start 04/15/24 at 09:00; Stop 05/15/24 at 08:59 Atorvastatin Calcium 40 mg HS PO Last administered on 04/19/24at 20:52; Start 04/14/24 at 21:00; Stop 05/14/24 at 20:59 Metoprolol Tartrate 12.5 mg BID PO Last administered on 04/15/24at 10:06; Start 04/14/24 at 21:00; Stop 04/15/24 at 11:05; Status DC Leptospermum Honey 1 appl DAILY TP Last administered on 04/20/24at 08:21; Start 04/15/24 at 09:00; Stop 04/20/24 at 09:52; Status DC Vancomycin HCl 250 ml @ 125 mls/hr Q12H IV Last administered on 04/16/24at 20:50; Start 04/15/24 at 21:30; Stop 04/17/24 at 09:02; Status DC Metoprolol Tartrate 25 mg BID PO Last administered on 04/20/24at 08:21; Start 04/15/24 at 21:00; Stop 05/15/24 at 20:59 Metoprolol Tartrate 5 mg Q4H PRN IV; Start 04/15/24 at 11:30; Stop 05/15/24 at 11:29 Clopidogrel Bisulfate 75 mg DAILY PO Last administered on 04/20/24at 08:21; Start 04/16/24 at 12:30; Stop 05/16/24 at 12:29 Iohexol 50 ml STK-MED ONCE IV; Start 04/16/24 at 18:43; Stop 04/16/24 at 18:44; Status DC Iohexol 35,000 mg STK-MED ONCE IV; Start 04/16/24 at 18:44; Stop 04/16/24 at 18:44; Status DC Vancomycin HCl 750 mg Q12H IVPB Last administered on 04/18/24at 21:11; Start 04/17/24 at 21:30; Stop 04/19/24 at 11:53; Status DC Furosemide 20 mg DAILY PO Last administered on 04/20/24at 08:21; Start 04/18/24 at 09:00; Stop 05/18/24 at 08:59 Midazolam HCl 2 mg STK-MED ONCE .ROUTE; Start 04/19/24 at 08:24; Stop 04/19/24 at 08:24; Status DC Ketamine HCl 500 mg STK-MED ONCE IJ; Start 04/19/24 at 08:25; Stop 04/19/24 at 08:25; Status DC Lidocaine HCl 100 mg STK-MED ONCE .ROUTE; Start 04/19/24 at 08:31; Stop 04/19/24 at 08:31; Status DC Propofol 200 mg STK-MED ONCE IV; Start 04/19/24 at 08:31; Stop 04/19/24 at 08:32; Status DC Succinylcholine Chloride 200 mg STK-MED ONCE .ROUTE; Start 04/19/24 at 08:36; Stop 04/19/24 at 08:36; Status DC Phenylephrine HCl 10 mg STK-MED ONCE IV; Start 04/19/24 at 08:51; Stop 04/19/24 at 08:52; Status DC Bupivacaine HCl/ Epinephrine Bitart 10 ml STK-MED ONCE IJ; Start 04/19/24 at 09:04; Stop 04/19/24 at 09:05; Status DC Fentanyl Citrate 100 mcg STK-MED ONCE .ROUTE; Start 04/19/24 at 09:05; Stop 04/19/24 at 09:05; Status DC Ondansetron HCl 4 mg STK-MED ONCE .ROUTE; Start 04/19/24 at 09:14; Stop 04/19/24 at 09:14; Status DC Leptospermum Honey 1 APPLICATION DAILY TP; Start 04/20/24 at 09:00; Stop 05/20/24 at 08:59 Piperacillin Sod/ Tazobactam Sod 50 ml @ As Directed STK-MED ONCE .ROUTE; Start 04/19/24 at 09:55; Stop 04/19/24 at 09:56; Status DC Meperidine HCl 25 mg STK-MED ONCE .ROUTE Last administered on 04/19/24at 10:24; Start 04/19/24 at 09:59; Stop 04/19/24 at 10:00; Status DC Meperidine HCl 25 mg STK-MED ONCE .ROUTE Last administered on 04/19/24at 10:29; Start 04/19/24 at 10:22; Stop 04/19/24 at 10:26; Status DC Morphine Sulfate 1 mg Q4HPRN PRN IVP Last administered on 04/20/24at 05:42; Start 04/19/24 at 11:30; Stop 04/26/24 at 11:29 Bupivacaine HCl/ Epinephrine Bitart 20 ml STK-MED ONCE IJ Last administered on 04/19/24at 09:13; Start 04/19/24 at 09:13; Stop 04/19/24 at 13:37; Status DC Leptospermum Honey 1 appl STK-MED ONCE TP Last administered on 04/19/24at 09:35; Start 04/19/24 at 09:35; Stop 04/19/24 at 13:37; Status DC FELECIA VILA Jr. Apr 20, 2024 10:39
--- NOTE | 2024-04-20 12:44 | PN ---
INFECTIOUS DISEASE PROGRESS NOTE Date of Service: Apr 20, 2024 SUBJECTIVE: This is a 59-year-old male patient with past medical history of diabetes mellitus, TIA and amputation of the right foot who presented to the hospital with chief complaint of a draining wound to the right posterior leg. A CT of the right lower extremities showed focal area with air collection in the mid calf levels suggestive of an abscess. General surgery consulted for a right lower extremity abscess. The final Wound cultures from the right lower extremity came back positive for Enterococcus faecalis and Escherichia coli and the right heel wound cultures came back positive for Pseudomonas aeruginosa, E coli and Enterococcus faecalis. Patient is awake, alert and oriented x 3. Patient is status post I&D and excisional debridement of a right calf abscess with wound VAC placement day #1. Continues on Zosyn. No reports of fever, temperature is 97.5 and the WBC has trended down to 7.1. Case management has been consulted for referral to LTAC. We will continue to monitor patient's care. PHYSICAL EXAM EYES: Anicteric. Pupils equal and reactive. HENT: No oral thrush seen, moist Oral mucosa. NECK: Supple, no JVD or thyromegaly. LUNGS: Good air entry. No rales, no rhonchi. CARDIOVASCULAR: S1, S2 regular. No murmur heard. ABDOMEN: Soft, non tender, bowel sounds present, no organomegaly. CENTRAL NERVOUS SYSTEM: Awake, alert, oriented x 3. SKIN: No rashes, no swelling. Right lower extremity and right foot diabetic ulcer. LYMPHATICS: No peripheral lymphadenopathy. MUSCULOSKELETAL: No joint swelling, erythema or tenderness. EXTREMITIES: No cyanosis or clubbing. Right foot amputation diabetic ulcer. BACK: No deformity, no pressure ulcer. GENITOURINARY: No dysuria or hematuria. Vital Sign (Last 12 Hours) 04/20/24 04/20/24 04:00 12:04 Temp 99.0 97.9 Pulse 87 86 Resp 19 19 B/P (MAP) 136/88 147/94 Pulse Ox 93 93 O2 Delivery Nasal Cannula Room Air O2 Flow Rate 2.0 Intake & Output (last 24hrs) 04/19/24 04/19/24 04/20/24 15:00 23:00 07:00 Intake Total 980 ml 200 ml Output Total 700 ml Balance 980 ml -500 ml LABS: Laboratory: Test 04/20/24 11:37 04/20/24 03:38 04/19/24 11:11 04/18/24 16:14 Range/Units Whole Blood Glucose 205 H 70-110 MG/DL White Blood Count 7.1 4.8-10.8 K/uL Red Blood Count 2.72 L 4.50-6.20 MIL/uL Hemoglobin 8.5 L 14.0-18.0 g/dL Hematocrit 25.7 L 42-54 % Mean Corpuscular Volume 94.5 79-99 fL Mean Corpuscular Hemoglobin 31.3 27.0-33.0 pg Mean Corpuscular Hemoglobin Concent 33.1 32.0-36.0 g/dL Red Cell Distribution Width 12.4 11.0-15.5 % Platelet Count 391 130-400 K/uL Mean Platelet Volume 9.7 7.5-10.5 fL Immature Granulocyte % (Auto) 0.4 0-1 % Neutrophils (%) (Auto) 71.2 40.0-77.0 % Lymphocytes (%) (Auto) 16.2 L 21.0-51.0 % Monocytes (%) (Auto) 9.2 3.0-13.0 % Eosinophils (%) (Auto) 2.4 0.0-8.0 % Basophils (%) (Auto) 0.6 0.0-5.0 % Neutrophils # (Auto) 5.0 1.8-7.7 K/uL Lymphocytes # (Auto) 1.1 1.0-4.8 K/uL Monocytes # (Auto) 0.7 0.1-1.0 K/uL Eosinophils # (Auto) 0.17 0.00-0.70 K/uL Basophils # (Auto) 0.04 0.00-0.20 K/uL Absolute Immature Granulocyte (auto 0.03 0-1 K/uL Nucleated Red Blood Cells 0.0 0.0-0.19 % Sodium Level 138 136-145 mmol/L Potassium Level 3.9 3.5-5.1 mmol/L Chloride Level 103 101-111 mmol/L Carbon Dioxide Level 29 21-32 mmol/L Blood Urea Nitrogen 12 7-18 mg/dL Creatinine 1.3 0.5-1.3 mg/dL Glomerular Filtration Rate Calc 64 >90 mL/min Random Glucose 179 H 70-105 mg/dL Total Calcium 8.0 L 8.5-10.1 mg/dL Vancomycin Level Trough 15.6 # 10.0-20.0 UG/ML Bedside Glucose Comment Notified Nurse ASSESSMENT: Right Calcaneal osteomyelitis. Right lower extremity abscess, status post I&D and excisional debridement with wound VAC placement on 04/19/2024. Right lower extremity wound infection with Enterococcus faecalis and E coli. Right foot wound infection with polymicrobial infection. Leukocytosis, resolved. Diabetes mellitus. Peripheral vascular disease. History of amputation of the right foot. PLAN: Continue Zosyn IV. Continue wound care as recommended by General surgery. Continue pain management. Continue monitoring glucose levels. We will monitor electrolytes. Case management has been consulted for LTAC placement. This case was reviewed and discussed with my supervising physician and the above assessment and plan was formulated and agreed upon. ATTESTATION BY PHYSICIAN I have seen and examined the patient. I reviewed the documentation, medical decision making, and treatment plan as noted by the mid-level provider above. I agree with the findings and plan of care. MÓNICA MOSQUEDA MD, [facility] Apr 20, 2024 12:44
[2024-04-21] VITALS (9 sets, daily range): BP systolic 102–158; BP diastolic 67–99; PULSE 80–120; RESP 18–20; TEMP 98–98.8; O2SAT 93–98
[2024-04-21 05:15] LABS: BASOPHILS # (AUTO) 0.04 K/uL (0.00-0.20); BASOPHILS % (AUTO) 0.6 % (0.0-5.0); EOSINOPHILS # (AUTO) 0.12 K/uL (0.00-0.70); EOSINOPHILS % (AUTO) 1.8 % (0.0-8.0); HEMATOCRIT 27.9 % (42-54); IMMATURE GRANULOCYTE ABSOLUTE 0.04 K/uL (0-1); LYMPHOCYTES # (AUTO) 1.3 K/uL (1.0-4.8); LYMPHOCYTES % (AUTO) 19.3 % (21.0-51.0); MEAN CORPUSCULAR HEMOGLOBIN 31.6 pg (27.0-33.0); MEAN CORPUSCULAR HGB CONC 34.4 g/dL (32.0-36.0); MEAN CORPUSCULAR VOLUME 91.8 fL (79-99); MONOCYTES # (AUTO) 0.6 K/uL (0.1-1.0); MONOCYTES % (AUTO) 9.4 % (3.0-13.0); NEUTROPHILS # (AUTO) 4.5 K/uL (1.8-7.7); NEUTROPHILS % (AUTO) 68.3 % (40.0-77.0); PLATELET COUNT (AUTO) 447 K/uL (130-400); RED BLOOD CELL COUNT(AUTO) 3.04 MIL/uL (4.50-6.20); RED CELL DISTRIBUTION WIDTH 12.4 % (11.0-15.5); WHITE BLOOD COUNT (AUTO) 6.6 K/uL (4.8-10.8)
--- NOTE | 2024-04-21 07:11 | PN ---
SUBJECTIVE: The patient is a very pleasant 59-year-old diabetic, [place] male. White count 6.6, H and H 9.6 and 27.9, platelets 447. T-max 98.1, pulse 91, respirations 19, blood pressure 155/94. The patient is currently receiving Medihoney dressings to his heel, IV Zosyn. The patient has had wound cultures that have shown enterococcus faecalis, Escherichia coli and pseudomonas aeruginosa. The patient has been followed by Infectious Disease, by the General Surgery Service and by the Wound Care Service. He has had an extensive debridement to the right calf. 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 He is being evaluated for long-term acute care facility placement for treatment of his osteomyelitis, his wound to his right calf and the continuation of the wound vacuum and the IV antibiotics. OBJECTIVE: His examination today wound VAC in place, functioning well to the right calf. 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 He has a plantar heel ulcer on the right 15 x 15 x 1 mm, clean and granular wound bed. ASSESSMENT: A 59-year-old male status post extensive debridement of a necrotizing fasciitis infection to the calf on the right, now with wound vacuum placement being followed for calcaneal osteomyelitis. Evaluation of his circulation status suggested no peripheral vascular disease. The patient with a polymicrobial wound infection, receiving Zosyn per Infectious Disease, receiving Medihoney dressings to his right heel. PLAN: We will continue with the wound VAC therapy to the calf, debridement site. Continue with the Medihoney dressings to his right heel wound. Continue with the IV Zosyn. Continue to follow the patient closely while in-house. Anticipate transfer to a long-term acute care facility for continuation of wound vacuum therapy to the calf, local wound care to the ulcer to the heel, IV antibiotics to treat his polymicrobial wound infection, chronic calcaneal osteomyelitis on the right. TID: [id number] RECEIPT: [id number]
--- NOTE | 2024-04-21 12:41 | NUR ---
[facility]IVAN NOTE: [facility] PENDING APPROVAL PREVIOUS CM/SW ASSIGNED OBTAINED CONSENT SAMRA FOR [facility] CM SENT ORDER, REV CODE, FACE SHEET TO ANIKET Negron/ROHIN[facility] VIA SECURE FAX AND EMAIL, CONFIRMATION RECEIVED. CM SPOKE TO ANIKET, MADE AWARE OF NEW REFERRAL, WILL COME EVALUATE PT. PT PENDING APPROVAL AND ACCEPTANCE. MOT SEMI-FILLED PENDING TO COMPLETE ONCE AUTH RECEIVED, EMS FILLED OUT PENDING TO FAX W/CURRENT DATE ONCE PT READY TO DC. PRIMARY NURSE ANDREW AWARE. CM TO CONTINUE TO FOLLOW UP. Addendum: 04/21/24 at 1246 by XUAN VILA LVN CM Amended: Links added.
[2024-04-21 12:55] LABS: INR 1.16 (0.85-1.15); PROTHROMBIN TIME 12.4 SEC (9.6-11.6)
[2024-04-21 12:57] LABS: PARTIAL THROMBOPLASTIN TIME 31.9 SEC (26.3-35.5)
--- NOTE | 2024-04-21 12:59 | PN ---
[facility] PROGRESS NOTE Date of Service: Apr 21, 2024 Time of Service: 12:[address] Rowland SUBJECTIVE: The patient has been seen and examined during my rounding today, alert oriented x3, he is getting IV antibiotics, BP 150/87, getting good pain control with current medical management, rest of the vital signs unremarkable, afebrile, saturating normal on room air. He denied chest pain, shortness shortness for breath, no nausea, no vomiting. Blood work reviewed, as well as imaging results, discussed with the patient. 04/16 the patient has been seen and examined earlier this morning during my rounding, no acute events overnight, during my visit he remains comfortably in bed, alert oriented x3, hemodynamically stable, getting IV antibiotics, no chest pain, no shortness a breath, no nausea, no vomiting, no abdominal discomfort, no family members at bedside during my visit. 04/17 patient was examined in the room, he remains very lethargic. He is alert and oriented x3. He is having shallow breathing. We will order chest x-ray and start IS. Discussed plan with the patient he verbalized understanding. No family at bedside. Discussed plan with Dr. Su as well. 04/18 patient was seen and examined in the room, patient was getting his wound care done. Noted right stump necrosis with right cough red and necrotic. Plan will be to do I and D with surgeon tomorrow. No other complaints. Discussed V/Q scan result as it is unremarkable. 04/19 04/19 patient was evaluated this morning, patient is feeling a lot better. The plan is for him to have incision and drainage of right posterior calf wound and debridement by Dr. Cotton which is scheduled for today. Patient is afebrile, he is saturating 99% on room at this time. WBC at 7.4. Patient has no complaints today. We will continue to monitor, continue with current IV antibiotics per Dr. Rm. 04/20/24 patient is seen and evaluated this morning with attending discussed patient's reviewed chart. Patient is alert oriented x3. Status post incision and drainage of right posterior calf wound and debridement intraoperative cultures were sent out. c ase management: LTAC eval: s/p I/D with wound Vac placement: will need technician terminal and repeater abt's for Osteomyelitis anterior aspect of the calcaneus. 04/21 patient was seen by nurse practitioner and physician during rounding in room 405 comfortably lying in bed. Per ID patient continues to be on Zosyn. Patient has a wound VAC to the right calf. 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 Midline insertion pending. We will continue to monitor patient in the meantime. A.m. labs REVIEW OF SYSTEMS CONSTITUTIONAL: Denies fevers, chills, or night sweats. No unintentional weight loss reported. NEUROLOGICAL: Denies headache, amaurosis fugax, motor weakness, sensory deficit, vertigo/spinning sensation, gait abnormalities, or tremors. ENT: No hearing loss, otalgia, otorrhea, rhinitis, rhinorrhea, hoarseness, or sore throat. CARDIOVASCULAR: Denies any exertional angina, dyspnea on exertion, orthopnea, paroxysmal nocturnal dyspnea, palpitations, life-threatening arrhythmias, claudication. PULMONARY: Denies any shortness of breath, cough, phlegm/sputum, hemoptysis, pleuritic chest pain. SLEEP: Denies morning headaches, daytime somnolence or napping. Denies difficulty falling asleep, staying asleep, waking from sleep. Denies knowledge of snoring. GASTROINTESTINAL: Denies any type of dysphagia to either liquids or solids. Denies nausea, vomiting, pyrosis, early satiety, abdominal pain, diarrhea, constipation, or changes in stool consistency or caliber. Denies coffee-ground emesis, hematemesis, hematochezia, or melanotic stools. GENITOURINARY: Denies frequency, urgency, nocturia, hematuria or incontinence (Storage/Irritative symptoms.) Low urinary stream, straining to void, urinary intermittency or hesitancy, splitting of the voiding stream, terminal dribbling. ENDOCRINOLOGIC: Denies polyuria, polydipsia, polyphagia or heat/cold intolerances. HEMATOLOGIC: Denies thrombophilia/previous clots, or coagulopathy/bleeding disorders. ONCOLOGIC: Denies personal history of malignancy. DERMATOLOGIC: Denies rashes or pruritus. PSYCHIATRIC: Denies any suicidal or homicidal ideation. Denies hallucinations. PHYSICAL EXAM GENERAL APPEARANCE: The patient is awake, alert, and oriented, in no acute cardiopulmonary distress. NEUROLOGICAL: Cranial nerves II-XII grossly intact. Motor is 5/5 in bilateral upper and lower extremities proximal to distal. No sensory deficits. HEENT: Face is symmetric. Pupils are equal and reactive. Extraocular movements are intact. NECK: Supple. No JVD. No thyromegaly. No submental, submandibular, pre-/postauricular, occipital or supraclavicular lymphadenopathy. CHEST: Normal chest expansion. No Telemetry. LUNGS: Absence of any rales, rhonchi or any wheezing. CARDIOVASCULAR: Regular. S1 and S2 normal. No appreciable rubs, murmurs or gallops. ABDOMEN: Soft, nontender, and nondistended. There is no rebound, voluntary guarding, or rigidity. : Deferred. No Abrams. EXTREMITIES: Non-edematous and not cyanotic. No clubbing. Good capillary refill. SKIN: No skin breakdown. Vital Signs (last 8hr) Date Time Temp Pulse Resp B/P (MAP) Pulse Ox O2 Delivery O2 Flow Rate FiO2 04/21/24 08:15 98 Room Air* 0 21 04/21/24 08:06 98.2 88 19 153/87 98 Room Air LABS: Laboratory: Test 04/21/24 12:09 04/21/24 11:23 04/21/24 05:19 04/21/24 04:43 Range/Units Prothrombin Time 12.4 H 9.6-11.6 SEC Prothromb Time International Ratio 1.16 H 0.85-1.15 Whole Blood Glucose 231 H 70-110 MG/DL Bedside Glucose Comment Notified Nurse White Blood Count 6.6 4.8-10.8 K/uL Red Blood Count 3.04 L 4.50-6.20 MIL/uL Hemoglobin 9.6 L 14.0-18.0 g/dL Hematocrit 27.9 L 42-54 % Mean Corpuscular Volume 91.8 79-99 fL Mean Corpuscular Hemoglobin 31.6 27.0-33.0 pg Mean Corpuscular Hemoglobin Concent 34.4 32.0-36.0 g/dL Red Cell Distribution Width 12.4 11.0-15.5 % Platelet Count 447 H 130-400 K/uL Mean Platelet Volume 9.6 7.5-10.5 fL Immature Granulocyte % (Auto) 0.6 0-1 % Neutrophils (%) (Auto) 68.3 40.0-77.0 % Lymphocytes (%) (Auto) 19.3 L 21.0-51.0 % Monocytes (%) (Auto) 9.4 3.0-13.0 % Eosinophils (%) (Auto) 1.8 0.0-8.0 % Basophils (%) (Auto) 0.6 0.0-5.0 % Neutrophils # (Auto) 4.5 1.8-7.7 K/uL Lymphocytes # (Auto) 1.3 1.0-4.8 K/uL Monocytes # (Auto) 0.6 0.1-1.0 K/uL Eosinophils # (Auto) 0.12 0.00-0.70 K/uL Basophils # (Auto) 0.04 0.00-0.20 K/uL Absolute Immature Granulocyte (auto 0.04 0-1 K/uL Nucleated Red Blood Cells 0.0 0.0-0.19 % Test 04/20/24 03:38 Range/Units Sodium Level 138 136-145 mmol/L Potassium Level 3.9 3.5-5.1 mmol/L Chloride Level 103 101-111 mmol/L Carbon Dioxide Level 29 21-32 mmol/L Blood Urea Nitrogen 12 7-18 mg/dL Creatinine 1.3 0.5-1.3 mg/dL Glomerular Filtration Rate Calc 64 >90 mL/min Random Glucose 179 H 70-105 mg/dL Total Calcium 8.0 L 8.5-10.1 mg/dL Current Medications Medications (Trade) Dose Ordered Sig/Jl Route PRN Reason Start Time Stop Time Status Last Admin Dose Admin Aspirin (Aspirin 81mg Ec Tab) 81 mg DAILY PO 04/15/24 09:00 05/15/24 08:59 04/21/24 08:47 81 MG Atorvastatin Calcium (LIPItor 40MG) 40 mg HS PO 04/14/24 21:00 05/14/24 20:59 04/20/24 21:39 40 MG Clopidogrel Bisulfate (plaVIX 75MG) 75 mg DAILY PO 04/16/24 12:30 05/16/24 12:29 04/21/24 08:47 75 MG Dextrose (D50w) 50 ml AD PRN IV HYPOGLYCEMIA PROTOCOL 04/13/24 23:00 05/13/24 22:59 Famotidine (Pepcid 20mg Tab) 20 mg BID PO 04/14/24 09:00 05/14/24 08:59 04/21/24 08:47 20 MG Furosemide (LASix 20MG TAB) 20 mg DAILY PO 04/18/24 09:00 05/18/24 08:59 04/21/24 08:47 20 MG Glucagon (Glucagon 1mg Kit) 1 mg AD PRN IM HYPOGLYCEMIA PROTOCOL 04/13/24 23:00 05/13/24 22:59 Hydralazine HCl (APRESOLine 20MG INJ) 10 mg Q6H PRN IV For:SBP above 160;DBP above 90 04/13/24 23:00 05/13/24 22:59 04/16/24 20:13 10 MG Insulin Human Regular (humuLIN R 100 UNIT/ML 3ML) INSULIN SLIDING SCAL... ACHS SQ 04/14/24 07:30 05/14/24 07:29 04/21/24 11:42 4 UNIT Leptospermum Honey ([employer]) 1 APPLICATION DAILY TP 04/20/24 09:00 05/20/24 08:59 04/21/24 08:47 1 APPL Leptospermum Honey ([employer]) 1 appl DAILY TP 04/15/24 09:00 04/20/24 09:52 DC 04/20/24 08:21 1 APPL Magnesium Sulfate 50 ml @ 0 mls/hr PROTOCOL IV 04/14/24 13:00 04/14/24 12:35 DC Magnesium Sulfate 50 ml @ 0 mls/hr PROTOCOL PRN IV OTHER [SEE ORDER COMMENTS] 04/13/24 23:00 05/13/24 22:59 04/16/24 12:14 0 MLS/HR Metoprolol Tartrate (loprESSOR) 5 mg Q4H PRN IV INCREASED HEART RATE 04/15/24 11:30 05/15/24 11:29 Metoprolol Tartrate (loprESSOR) 12.5 mg BID PO 04/14/24 21:00 04/15/24 11:05 DC 04/15/24 10:06 12.5 MG Metoprolol Tartrate (loprESSOR) 25 mg BID PO 04/15/24 21:00 05/15/24 20:59 04/21/24 08:47 25 MG Morphine Sulfate (morPHINE 2MG SYG) 1 mg Q4HPRN PRN IVP MODERATE PAIN (4-6) 04/19/24 11:30 04/26/24 11:29 04/20/24 05:42 1 MG Morphine Sulfate (morPHINE 2MG SYG) 2 mg Q4H PRN IV MODERATE PAIN (4-6) 04/13/24 23:00 04/19/24 01:59 DC 04/18/24 18:12 2 MG Ondansetron HCl (zoFRAN 4MG INJ) 4 mg Q6H PRN IV NAUSEA/VOMITING 04/13/24 23:00 05/13/24 22:59 Piperacillin Sod/ Tazobactam Sod 50 ml @ 12.5 mls/hr Q8H IV 04/14/24 01:30 04/24/24 01:29 04/21/24 08:47 12.5 MLS/HR Piperacillin Sod/ Tazobactam Sod (Zosyn 3.375gm+NS 50ml) 3.375 gm Q12H STAT IV 04/13/24 17:26 04/13/24 17:33 DC 04/13/24 20:52 3.375 GM Potassium Chloride 100 ml @ 100 mls/hr AD PRN IV POTASSIUM PROTOCOL 04/13/24 23:00 05/13/24 22:59 Potassium Chloride (K-Dur/Klor-Con 20meq) 20 meq AD PRN PO POTASSIUM PROTOCOL 04/13/24 23:00 05/13/24 22:59 04/16/24 08:58 20 MEQ Potassium Chloride (KCl 10% Elixir 20meq/15ml) 20 meq AD PRN PO POTASSIUM PROTOCOL 04/13/24 23:00 05/13/24 22:59 04/19/24 16:08 20 MEQ Vancomycin HCl 250 ml @ 125 mls/hr ONCE IV 04/13/24 23:00 04/13/24 23:06 DC Vancomycin HCl 250 ml @ 125 mls/hr Q12H IV 04/14/24 08:00 04/14/24 09:03 DC Vancomycin HCl 250 ml @ 125 mls/hr Q12H IV 04/14/24 09:30 04/15/24 09:16 DC 04/14/24 21:52 125 MLS/HR Vancomycin HCl 250 ml @ 125 mls/hr Q12H IV 04/15/24 21:30 04/17/24 09:02 DC 04/16/24 20:50 125 MLS/HR Vancomycin HCl (Vancomycin 750mg) 750 mg Q12H IVPB 04/17/24 21:30 04/19/24 11:53 DC 04/18/24 21:11 750 MG Vancomycin HCl (Vancomycin Protocol) 1 each AD IV 04/13/24 17:26 04/19/24 11:53 DC DIAGNOSTICS / RADIOLOGY: [ ] ASSESSMENT: Infected right leg cellulitis with abscess POA s/p incision and drainage of right posterior calf wound and debridement with WOUND VAC 04/19/24 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 Cotton will follow up intraoperative cultures: ID on board continue with Broad spectrum IV antibiotics cont with local wound as directed by surgical services : [facility] continue with Vac Therapy WILL BE CHANGE TOMORROW cont with pain management for adequate pain controlled. MRI of the right foot showing osteomyelitis case management: discharged planning. LTAC patient on Telemetry already will order PT service to eval and treat Continue on Famotidine 20 mg p.o. bid for GI prophylaxis We will replace electrolytes as needed per protocol We will continue on insulin sliding scale AC & HS with hypoglycemia protocol Continue prn medication for fever,pain,cough and nausea We will request labs in am Further orders to follow depending on above results Disposition: The patient remains admitted to the medical floor, MRI with findings suspicious of osteomyelitis involving the anterior aspect of the calcaneus with the adjacent cellulitis/myositis changes. Continue broad- spectrum IV antibiotics continue to follow podiatry and infectious disease input recommendation. [facility] pending Plan of action discussed with the patient, all questions answered, agreed and understood the information provided. ATTESTATION BY PHYSICIAN I have seen and examined the patient. I reviewed the documentation, medical decision making, and treatment plan as noted by the mid-level provider above. I agree with the findings and plan of care. NIKKI Nava MD [facility] Apr 21, 2024 12:59
--- NOTE | 2024-04-21 14:54 | PN ---
INFECTIOUS DISEASE PROGRESS NOTE Date of Service: Apr 21, 2024 SUBJECTIVE: This is a 59-year-old male patient with past medical history of diabetes mellitus, TIA and amputation of the right foot who presented to the hospital with chief complaint of a draining wound to the right posterior leg. A CT of the right lower extremities showed focal area with air collection in the mid calf levels suggestive of an abscess. General surgery consulted for a right lower extremity abscess. The final Wound cultures from the right lower extremity came back positive for Enterococcus faecalis and Escherichia coli and the right heel wound cultures came back positive for Pseudomonas aeruginosa, E coli and Enterococcus faecalis. Patient is awake, alert and oriented x 3. Patient is status post I&D and excisional debridement of a right calf abscess with wound VAC placement on 04/19/2024. Patient with right heel polymicrobial wound infection and right calcaneal osteomyelitis. Patient will need six weeks of IV antibiotics. Patient has been referred to [facility] and pending insurance approval. We will place a PICC line. Continues on Zosyn. Patient is afebrile, temperature is 98.6. We will continue to monitor patient's care. PHYSICAL EXAM EYES: Anicteric. Pupils equal and reactive. HENT: No oral thrush seen, moist Oral mucosa. NECK: Supple, no JVD or thyromegaly. LUNGS: Good air entry. No rales, no rhonchi. CARDIOVASCULAR: S1, S2 regular. No murmur heard. ABDOMEN: Soft, non tender, bowel sounds present, no organomegaly. CENTRAL NERVOUS SYSTEM: Awake, alert, oriented x 3. SKIN: No rashes, no swelling. Right lower extremity and right foot diabetic ulcer. LYMPHATICS: No peripheral lymphadenopathy. MUSCULOSKELETAL: No joint swelling, erythema or tenderness. EXTREMITIES: No cyanosis or clubbing. Right foot amputation diabetic ulcer. BACK: No deformity, no pressure ulcer. GENITOURINARY: No dysuria or hematuria. Vital Sign (Last 12 Hours) 04/21/24 04/21/24 04/21/24 04/21/24 03:37 08:06 08:15 12:00 Temp 98.1 98.2 98.6 Pulse 91 88 111 Resp 19 19 19 B/P (MAP) 155/94 153/87 158/99 Pulse Ox 94 98 98 93 O2 Delivery Room Air Room Air Room Air* Room Air O2 Flow Rate 0 FiO2 21 Intake & Output (last 24hrs) 04/20/24 04/20/24 04/21/24 15:00 23:00 07:00 Intake Total 500 ml 920 ml Output Total 2550 ml Balance 500 ml -1630 ml LABS: Laboratory: Test 04/21/24 12:09 04/21/24 11:23 04/21/24 05:19 04/21/24 04:43 Range/Units Prothrombin Time 12.4 H 9.6-11.6 SEC Prothromb Time International Ratio 1.16 H 0.85-1.15 Activated Partial Thromboplast Time 31.9 26.3-35.5 SEC Whole Blood Glucose 231 H 70-110 MG/DL Bedside Glucose Comment Notified Nurse White Blood Count 6.6 4.8-10.8 K/uL Red Blood Count 3.04 L 4.50-6.20 MIL/uL Hemoglobin 9.6 L 14.0-18.0 g/dL Hematocrit 27.9 L 42-54 % Mean Corpuscular Volume 91.8 79-99 fL Mean Corpuscular Hemoglobin 31.6 27.0-33.0 pg Mean Corpuscular Hemoglobin Concent 34.4 32.0-36.0 g/dL Red Cell Distribution Width 12.4 11.0-15.5 % Platelet Count 447 H 130-400 K/uL Mean Platelet Volume 9.6 7.5-10.5 fL Immature Granulocyte % (Auto) 0.6 0-1 % Neutrophils (%) (Auto) 68.3 40.0-77.0 % Lymphocytes (%) (Auto) 19.3 L 21.0-51.0 % Monocytes (%) (Auto) 9.4 3.0-13.0 % Eosinophils (%) (Auto) 1.8 0.0-8.0 % Basophils (%) (Auto) 0.6 0.0-5.0 % Neutrophils # (Auto) 4.5 1.8-7.7 K/uL Lymphocytes # (Auto) 1.3 1.0-4.8 K/uL Monocytes # (Auto) 0.6 0.1-1.0 K/uL Eosinophils # (Auto) 0.12 0.00-0.70 K/uL Basophils # (Auto) 0.04 0.00-0.20 K/uL Absolute Immature Granulocyte (auto 0.04 0-1 K/uL Nucleated Red Blood Cells 0.0 0.0-0.19 % Test 04/20/24 03:38 Range/Units Sodium Level 138 136-145 mmol/L Potassium Level 3.9 3.5-5.1 mmol/L Chloride Level 103 101-111 mmol/L Carbon Dioxide Level 29 21-32 mmol/L Blood Urea Nitrogen 12 7-18 mg/dL Creatinine 1.3 0.5-1.3 mg/dL Glomerular Filtration Rate Calc 64 >90 mL/min Random Glucose 179 H 70-105 mg/dL Total Calcium 8.0 L 8.5-10.1 mg/dL ASSESSMENT: Right Calcaneal osteomyelitis. Right lower extremity abscess, status post I&D and excisional debridement with wound VAC placement on 04/19/2024. Right lower extremity wound infection with Enterococcus faecalis and E coli. Right foot wound infection with polymicrobial infection. Leukocytosis, resolved. Diabetes mellitus. Peripheral vascular disease. History of amputation of the right foot. PLAN: Continue Zosyn IV. Continue wound care as recommended by General surgery. Continue pain management. Continue monitoring glucose levels. We will monitor electrolytes. Case management has been consulted for LTAC placement. This case was reviewed and discussed with my supervising physician and the above assessment and plan was formulated and agreed upon. ATTESTATION BY PHYSICIAN I have seen and examined the patient. I reviewed the documentation, medical decision making, and treatment plan as noted by the mid-level provider above. I agree with the findings and plan of care. MÓNICA MOSQUEDA MD, [facility] [employer] Apr 21, 2024 14:54
--- NOTE | 2024-04-21 16:44 | HMCIMG ---
CHEST 1VW REASON: PICC LINE COMPARISON: 04/21/2024 FINDINGS: PICC line is now in good position with tip in the superior vena cava and no evidence of a loop. The exam is otherwise unchanged. IMPRESSION: 1. PICC line with tip in the superior vena cava.
--- NOTE | 2024-04-21 16:44 | HMCIMG ---
CHEST 1VW REASON: PICC LINE PLACEMENT COMPARISON: 04/17/2024 FINDINGS: Lungs are clear. The bilateral infiltrate seen on prior exam have resolved, probably resolution of vascular congestion. There is a right-sided PICC line. Tip is looped in the superior vena cava, the loop is 3.5 cm long. IMPRESSION: 1. There is a 3.5 cm loop in the PICC line, the loop is in the superior vena cava. 2. Interval resolution of pulmonary vascular congestion.
--- NOTE | 2024-04-21 16:45 | NUR ---
PICC LINE PLACEMENT 5FR 2 LUMEN PICC LINE PLACED ON RIGHT UPPER ARM BRACHIAL VEIN WITH ULTRASOUND GUIDANCE UNDER STERILE TECHNIQUE. PATIENT TOLERATED PROCEDURE WELL. CATHETER TRIMMED TO 46 CM. INTERNAL LENGTH 45 CM, EXTERNAL LENGTH 1 CM. ARM CIRCUMFERENCE 24 CM. BLOOD RETURNED OBTAINED FROM ALL 2 LUMENS. CHEST X-RAY OBTAINED FOR PLACEMENT VERIFICATION. PLEASE REPORT CHEST X-RAY RESULTS TO MD FOR OK TO USE CATHETER ORDERS. PICC LINE CARE PERFORM HAND HYGIENE, DON GLOVES, SCRUB EACH HUB WITH ALCOHOL PREP PAD FOR 15 SECONDS EACH BEFORE EVERY ACCESS. FLUSH EACH PORT WITH 10 ML NS FLUSH, IF LINE IS NOT IN USE, AND CLAMP AFTER EACH ACCESS. CHANGE PICC LINE DRESSING EVERY 7 DAYS AND/OR PRN IF SOILED OR PEELING OFF USING STERILE TECHNIQUE.
[2024-04-22 04:33] VITALS: BP 143/88; PULSE 107; RESP 17; TEMP 98.6
[2024-04-22 05:43] LABS: BASOPHILS # (AUTO) 0.05 K/uL (0.00-0.20); BASOPHILS % (AUTO) 0.8 % (0.0-5.0); EOSINOPHILS # (AUTO) 0.15 K/uL (0.00-0.70); EOSINOPHILS % (AUTO) 2.4 % (0.0-8.0); HEMATOCRIT 29.8 % (42-54); IMMATURE GRANULOCYTE ABSOLUTE 0.02 K/uL (0-1); LYMPHOCYTES # (AUTO) 1.6 K/uL (1.0-4.8); LYMPHOCYTES % (AUTO) 26.6 % (21.0-51.0); MEAN CORPUSCULAR HGB CONC 33.9 g/dL (32.0-36.0); MEAN CORPUSCULAR VOLUME 91.4 fL (79-99); MONOCYTES # (AUTO) 0.4 K/uL (0.1-1.0); NEUTROPHILS # (AUTO) 3.9 K/uL (1.8-7.7); NEUTROPHILS % (AUTO) 62.9 % (40.0-77.0); PLATELET COUNT (AUTO) 458 K/uL (130-400); RED BLOOD CELL COUNT(AUTO) 3.26 MIL/uL (4.50-6.20); RED CELL DISTRIBUTION WIDTH 12.1 % (11.0-15.5); WHITE BLOOD COUNT (AUTO) 6.1 K/uL (4.8-10.8)
[2024-04-22 06:03] LABS: BILIRUBIN,TOTAL 0.6 mg/dL (0.2-1.0); CREATININE 1.2 mg/dL (0.5-1.3); MAGNESIUM 1.7 mg/dL (1.80-2.40); POTASSIUM 3.5 mmol/L (3.5-5.1); TOTAL PROTEIN, SERUM 7.5 g/dL (6.0-8.3)
[2024-04-22 07:50] VITALS: O2SAT 99
[2024-04-22 07:56] VITALS: BP 136/87; PULSE 86; RESP 18; TEMP 98.1
[2024-04-22 10:58] VITALS: BP 147/94; PULSE 93; RESP 18; TEMP 98
--- NOTE | 2024-04-22 15:29 | PN ---
INFECTIOUS DISEASE PROGRESS NOTE Date of Service: Apr 22, 2024 SUBJECTIVE: This is a 59-year-old male patient with past medical history of diabetes mellitus, TIA and amputation of the right foot who presented to the hospital with chief complaint of a draining wound to the right posterior leg. A CT of the right lower extremities showed focal area with air collection in the mid calf levels suggestive of an abscess. General surgery consulted for a right lower extremity abscess. The final Wound cultures from the right lower extremity came back positive for Enterococcus faecalis and Escherichia coli and the right heel wound cultures came back positive for Pseudomonas aeruginosa, E coli and Enterococcus faecalis. Patient is awake, alert and oriented x 3. Patient is status post I&D and excisional debridement of a right calf abscess with wound VAC placement on 04/19/2024. Patient is sitting up to the bedside chair and tolerating well. Patient need 6 weeks of IV antibiotics for right heel polymicrobial wound infection and right calcaneal osteomyelitis. PICC line has been placed on the right upper extremity. Patient is pending insurance approval to [facility]. Continues on [employer]. We will continue to monitor patient's care. PHYSICAL EXAM EYES: Anicteric. Pupils equal and reactive. HENT: No oral thrush seen, moist Oral mucosa. NECK: Supple, no JVD or thyromegaly. LUNGS: Good air entry. No rales, no rhonchi. CARDIOVASCULAR: S1, S2 regular. No murmur heard. ABDOMEN: Soft, non tender, bowel sounds present, no organomegaly. CENTRAL NERVOUS SYSTEM: Awake, alert, oriented x 3. SKIN: No rashes, no swelling. Right lower extremity and right foot diabetic ulcer. LYMPHATICS: No peripheral lymphadenopathy. MUSCULOSKELETAL: No joint swelling, erythema or tenderness. EXTREMITIES: No cyanosis or clubbing. Right foot amputation diabetic ulcer. BACK: No deformity, no pressure ulcer. GENITOURINARY: No dysuria or hematuria. Vital Sign (Last 12 Hours) 04/22/24 04/22/24 04/22/24 04:33 07:56 10:58 Temp 98.6 98.1 98.1 Pulse 107 86 93 Resp 17 18 18 B/P (MAP) 143/88 136/87 147/94 Pulse Ox 94 99 99 O2 Delivery Room Air Room Air Room Air Intake & Output (last 24hrs) 04/21/24 04/21/24 04/22/24 15:00 23:00 07:00 Intake Total 600 ml 420 ml Output Total 400 ml 500 ml 600 ml Balance 200 ml -80 ml -600 ml LABS: Laboratory: Test 04/22/24 10:53 04/22/24 05:53 04/22/24 05:08 04/21/24 12:09 Range/Units Whole Blood Glucose 207 H 70-110 MG/DL Bedside Glucose Comment Notified Nurse White Blood Count 6.1 4.8-10.8 K/uL Red Blood Count 3.26 L 4.50-6.20 MIL/uL Hemoglobin 10.1 L 14.0-18.0 g/dL Hematocrit 29.8 L 42-54 % Mean Corpuscular Volume 91.4 79-99 fL Mean Corpuscular Hemoglobin 31.0 27.0-33.0 pg Mean Corpuscular Hemoglobin Concent 33.9 32.0-36.0 g/dL Red Cell Distribution Width 12.1 11.0-15.5 % Platelet Count 458 H 130-400 K/uL Mean Platelet Volume 9.5 7.5-10.5 fL Immature Granulocyte % (Auto) 0.3 0-1 % Neutrophils (%) (Auto) 62.9 40.0-77.0 % Lymphocytes (%) (Auto) 26.6 21.0-51.0 % Monocytes (%) (Auto) 7.0 3.0-13.0 % Eosinophils (%) (Auto) 2.4 0.0-8.0 % Basophils (%) (Auto) 0.8 0.0-5.0 % Neutrophils # (Auto) 3.9 1.8-7.7 K/uL Lymphocytes # (Auto) 1.6 1.0-4.8 K/uL Monocytes # (Auto) 0.4 0.1-1.0 K/uL Eosinophils # (Auto) 0.15 0.00-0.70 K/uL Basophils # (Auto) 0.05 0.00-0.20 K/uL Absolute Immature Granulocyte (auto 0.02 0-1 K/uL Nucleated Red Blood Cells 0.0 0.0-0.19 % Sodium Level 141 136-145 mmol/L Potassium Level 3.5 3.5-5.1 mmol/L Chloride Level 103 101-111 mmol/L Carbon Dioxide Level 28 21-32 mmol/L Blood Urea Nitrogen 11 7-18 mg/dL Creatinine 1.2 0.5-1.3 mg/dL Glomerular Filtration Rate Calc 71 >90 mL/min Random Glucose 147 H 70-105 mg/dL Total Calcium 8.9 8.5-10.1 mg/dL Magnesium Level 1.70 L 1.80-2.40 mg/dL Total Bilirubin 0.6 0.2-1.0 mg/dL Aspartate Amino Transf (AST/SGOT) 18 10-37 U/L Alanine Aminotransferase (ALT/SGPT) 12 12-78 U/L Alkaline Phosphatase 66 50-136 U/L Total Protein 7.5 6.0-8.3 g/dL Albumin 2.0 L 3.5-5.0 g/dL Prothrombin Time 12.4 H 9.6-11.6 SEC Prothromb Time International Ratio 1.16 H 0.85-1.15 Activated Partial Thromboplast Time 31.9 26.3-35.5 SEC ASSESSMENT: Right Calcaneal osteomyelitis. Right lower extremity abscess, status post I&D and excisional debridement with wound VAC placement on 04/19/2024. Right calf wound infection with Enterococcus faecalis and E coli. Right foot wound infection with polymicrobial infection. Leukocytosis, resolved. Diabetes mellitus. Peripheral vascular disease. History of amputation of the right foot. PLAN: Continue Zosyn IV. Continue wound care as recommended by General surgery. Continue pain management. Continue monitoring glucose levels. We will monitor electrolytes. PICC line has been placed. Patient has been referred to [facility] and pending insurance approval. This case was reviewed and discussed with my supervising physician and the above assessment and plan was formulated and agreed upon. ATTESTATION BY PHYSICIAN I have seen and examined the patient. I reviewed the documentation, medical decision making, and treatment plan as noted by the mid-level provider above. I agree with the findings and plan of care. MÓNICA MOSQUEDA MD, MIRTA L [facility] Apr 22, 2024 15:29
[2024-04-22 16:05] VITALS: BP 152/92; PULSE 87; RESP 16; TEMP 98.4
[2024-04-22 20:35] VITALS: BP 158/95; PULSE 95; RESP 18; TEMP 98.1
--- NOTE | 2024-04-22 20:59 | PN ---
SUBJECTIVE: The patient is a very pleasant 59-year-old diabetic, Latin-[place]cu[place] male followed up for an extensive incision and drainage and debridement of the posterior calf necrotizing fasciitis infection, being followed for right heel ulcer, being followed for chronic calcaneal osteomyelitis. Afebrile at 98.4, blood pressure 152/92, pulse 93, respirations 18. The patient is currently receiving Medihoney dressings, currently receiving Zosyn currently receiving wound vacuum therapy to the posterior calf. The patient has cultures, enterococcus faecalis, Escherichia coli and pseudomonas aeruginosa, being followed by Infectious Disease. General Surgery has done debridement of the right calf and applied a wound vacuum, being evaluated for outpatient IV antibiotic therapy. OBJECTIVE: On examination, wound VAC in place, functioning well to the right calf, ulcer to the right heel 15 x 15 x 15 mm, fainting granular wound bed. ASSESSMENT: A 59-year-old male status post extensive debridement of necrotizing fasciitis, infection to the calf on the right. He has a wound vacuum in place, being followed for calcaneal osteomyelitis and for evaluation of the circulation, suggests no peripheral vascular disease. The patient has a polymicrobial wound infection, receiving Zosyn per cultures and sensitivities, receiving Medihoney dressings to the right heel. PLAN: We will continue Medihoney dressings to the right heel. Continue wound VAC therapy. Continue with the IV Zosyn. Continue to follow the patient closely while in-house. Awaiting outpatient placement to a long-term acute care facility for continuation of care. While we are awaiting outpatient placement for continuation of care for this patient, he will remain nonweightbearing status on that right foot. TID: [id number] RECEIPT: [id number]
[2024-04-23] VITALS (9 sets, daily range): BP systolic 108–133; BP diastolic 74–90; PULSE 79–112; RESP 16–19; TEMP 97.8–98.3; O2SAT 94–100
--- NOTE | 2024-04-23 03:45 | NUR ---
WOUNDVAC CHANGE WOUNDVAC CHANGED AT THIS TIME PER MD ORDER, NEW WOUNDVAC PLACED, 1 BLACK FOAM USED, PATIENT TOLERATED PROCEDURE, PATIENT LEFT LYING COMFORTABLY IN BED, BED LOCKED IN LOWEST POSITION, SIDERAILS UP X 2, CALL LIGHT AND PATIENT BELONGINGS LEFT WITHIN REACH
--- NOTE | 2024-04-23 08:40 | PN ---
SUBJECTIVE: The patient is a very pleasant 59-year-old male followed up for heel ulcer on the right, status post extensive debridement of his calf, receiving wound vacuum therapy. The patient has been afebrile. T-max 98.1, pulse 79, respirations 17, blood pressure 120/79. He has a white count that is 6.1, H and H 10.1 and 29.8. He is currently receiving IV Zosyn. The patient is pending discharge for local wound care and continuation of IV antibiotics. OBJECTIVE: On examination today, wound vacuum in place to the right calf, ulcer to the right heel 15 mm x 15 mm x 15 mm, granular wound bed. ASSESSMENT: A 59-year-old male status post extensive debridement of necrotizing fasciitis infection to his calf on the right, wound vacuum in place, followed up for calcaneal osteomyelitis. Evaluation of his circulation suggests no peripheral vascular disease. The patient has polymicrobial wound infection, receiving Zosyn. PLAN: We will continue with Medihoney dressings to his right heel. Continue wound vacuum therapy to the calf. Continue with the Zosyn. We are awaiting outpatient placement for continuation of care. TID: [id number] RECEIPT: [id number]
--- NOTE | 2024-04-23 10:53 | PN ---
This is a 59-year-old male status post I and D to right calf with wound VAC placement Interval history: This 59-year-old male seen in his room resting Wound VAC switched yesterday with no acute concerns reported Patient currently pending placement into [facility] for continued medical management Wound VAC with good seal Patient otherwise stable Physical exam General: Awake alert and oriented Heart: Regular rate and rhythm} Lungs: Clear to auscultation no distress Abdomen: [Soft, nontender, nondistended Extremity with wound VAC in place Assessment : This is a 59-year-old male status post I and D to right calf with wound VAC placement Plan: From surgical standpoint patient to continue with the wound VAC Patient to be cleared from surgical standpoint for placement into [facility] we will we continue to follow patient No further need for debridement at this time Surgical team to follow patient closely and Dr. Cotton to be updated on patient's status Vitals/Labs Vital Signs Date Time Temp Pulse Resp B/P (MAP) Pulse Ox O2 Delivery O2 Flow Rate FiO2 04/23/24 07:49 98.2 112 17 132/90 100 Room Air 04/22/24 20:00 0 21 Medications Current Medications Vancomycin HCl 1 gm ONCE ONCE IV; Start 04/13/24 at 17:30; Stop 04/13/24 at 17:32; Status DC Vancomycin HCl 1 each AD IV; Start 04/13/24 at 17:26; Stop 04/19/24 at 11:53; Status DC Piperacillin Sod/ Tazobactam Sod 3.375 gm Q12H STAT IV Last administered on 04/13/24at 20:52; Start 04/13/24 at 17:26; Stop 04/13/24 at 17:33; Status DC Vancomycin HCl 500 ml @ 250 mls/hr ONCE ONCE IV Last administered on 04/13/24at 21:25; Start 04/13/24 at 18:00; Stop 04/13/24 at 19:59; Status DC Vancomycin HCl 250 ml @ 125 mls/hr Q12H IV; Start 04/14/24 at 08:00; Stop 04/14/24 at 09:03; Status DC Sodium Chloride 1,000 ml @ 0 mls/hr ONCE ONCE IV Last administered on 04/13/24at 21:32; Start 04/13/24 at 21:30; Stop 04/13/24 at 21:31; Status DC Ondansetron HCl 4 mg Q6H PRN IV; Start 04/13/24 at 23:00; Stop 05/13/24 at 22:59 Famotidine 20 mg BID PO Last administered on 04/23/24at 09:04; Start 04/14/24 at 09:00; Stop 05/14/24 at 08:59 Vancomycin HCl 250 ml @ 125 mls/hr ONCE IV; Start 04/13/24 at 23:00; Stop 04/13/24 at 23:06; Status DC Piperacillin Sod/ Tazobactam Sod 50 ml @ 12.5 mls/hr Q8H IV Last administered on 04/23/24at 09:05; Start 04/14/24 at 01:30; Stop 04/24/24 at 01:29 Morphine Sulfate 2 mg Q4H PRN IV Last administered on 04/18/24at 18:12; Start 04/13/24 at 23:00; Stop 04/19/24 at 01:59; Status DC Hydralazine HCl 10 mg Q6H PRN IV Last administered on 04/16/24at 20:13; Start 04/13/24 at 23:00; Stop 05/13/24 at 22:59 Magnesium Sulfate 50 ml @ 0 mls/hr PROTOCOL PRN IV Last administered on 04/16/24at 12:14; Start 04/13/24 at 23:00; Stop 05/13/24 at 22:59 Potassium Chloride 100 ml @ 100 mls/hr AD PRN IV; Start 04/13/24 at 23:00; Stop 05/13/24 at 22:59 Potassium Chloride 20 meq AD PRN PO Last administered on 04/19/24at 16:08; Start 04/13/24 at 23:00; Stop 05/13/24 at 22:59 Potassium Chloride 20 meq AD PRN PO Last administered on 04/22/24at 13:00; Start 04/13/24 at 23:00; Stop 05/13/24 at 22:59 Insulin Human Regular INSULIN SLIDING SCAL... ACHS SQ Last administered on 04/22/24at 20:49; Start 04/14/24 at 07:30; Stop 05/14/24 at 07:29 Dextrose 50 ml AD PRN IV; Start 04/13/24 at 23:00; Stop 05/13/24 at 22:59 Glucagon 1 mg AD PRN IM; Start 04/13/24 at 23:00; Stop 05/13/24 at 22:59 Vancomycin HCl 250 ml @ 125 mls/hr Q12H IV Last administered on 04/14/24at 21:52; Start 04/14/24 at 09:30; Stop 04/15/24 at 09:16; Status DC Potassium Chloride 40 meq ONCE ONCE PO; Start 04/14/24 at 13:00; Stop 04/14/24 at 13:01; Status DC Magnesium Sulfate 50 ml @ 0 mls/hr PROTOCOL IV; Start 04/14/24 at 13:00; Stop 04/14/24 at 12:35; Status DC Aspirin 81 mg DAILY PO Last administered on 04/23/24at 09:04; Start 04/15/24 at 09:00; Stop 05/15/24 at 08:59 Atorvastatin Calcium 40 mg HS PO Last administered on 04/22/24at 20:44; Start 04/14/24 at 21:00; Stop 05/14/24 at 20:59 Metoprolol Tartrate 12.5 mg BID PO Last administered on 04/15/24at 10:06; Start 04/14/24 at 21:00; Stop 04/15/24 at 11:05; Status DC Leptospermum Honey 1 appl DAILY TP Last administered on 04/20/24at 08:21; Start 04/15/24 at 09:00; Stop 04/20/24 at 09:52; Status DC Vancomycin HCl 250 ml @ 125 mls/hr Q12H IV Last administered on 04/16/24at 20:50; Start 04/15/24 at 21:30; Stop 04/17/24 at 09:02; Status DC Metoprolol Tartrate 25 mg BID PO Last administered on 04/23/24at 09:05; Start 04/15/24 at 21:00; Stop 05/15/24 at 20:59 Metoprolol Tartrate 5 mg Q4H PRN IV; Start 04/15/24 at 11:30; Stop 05/15/24 at 11:29 Clopidogrel Bisulfate 75 mg DAILY PO Last administered on 04/23/24at 09:05; Start 04/16/24 at 12:30; Stop 05/16/24 at 12:29 Iohexol 50 ml STK-MED ONCE IV; Start 04/16/24 at 18:43; Stop 04/16/24 at 18:44; Status DC Iohexol 35,000 mg STK-MED ONCE IV; Start 04/16/24 at 18:44; Stop 04/16/24 at 18:44; Status DC Vancomycin HCl 750 mg Q12H IVPB Last administered on 04/18/24at 21:11; Start 04/17/24 at 21:30; Stop 04/19/24 at 11:53; Status DC Furosemide 20 mg DAILY PO Last administered on 04/23/24at 09:05; Start 04/18/24 at 09:00; Stop 05/18/24 at 08:59 Midazolam HCl 2 mg STK-MED ONCE .ROUTE; Start 04/19/24 at 08:24; Stop 04/19/24 at 08:24; Status DC Ketamine HCl 500 mg STK-MED ONCE IJ; Start 04/19/24 at 08:25; Stop 04/19/24 at 08:25; Status DC Lidocaine HCl 100 mg STK-MED ONCE .ROUTE; Start 04/19/24 at 08:31; Stop 04/19/24 at 08:31; Status DC Propofol 200 mg STK-MED ONCE IV; Start 04/19/24 at 08:31; Stop 04/19/24 at 08:32; Status DC Succinylcholine Chloride 200 mg STK-MED ONCE .ROUTE; Start 04/19/24 at 08:36; Stop 04/19/24 at 08:36; Status DC Phenylephrine HCl 10 mg STK-MED ONCE IV; Start 04/19/24 at 08:51; Stop 04/19/24 at 08:52; Status DC Bupivacaine HCl/ Epinephrine Bitart 10 ml STK-MED ONCE IJ; Start 04/19/24 at 09:04; Stop 04/19/24 at 09:05; Status DC Fentanyl Citrate 100 mcg STK-MED ONCE .ROUTE; Start 04/19/24 at 09:05; Stop 04/19/24 at 09:05; Status DC Ondansetron HCl 4 mg STK-MED ONCE .ROUTE; Start 04/19/24 at 09:14; Stop 04/19/24 at 09:14; Status DC Leptospermum Honey 1 APPLICATION DAILY TP Last administered on 04/23/24at 09:05; Start 04/20/24 at 09:00; Stop 05/20/24 at 08:59 Piperacillin Sod/ Tazobactam Sod 50 ml @ As Directed STK-MED ONCE .ROUTE; Start 04/19/24 at 09:55; Stop 04/19/24 at 09:56; Status DC Meperidine HCl 25 mg STK-MED ONCE .ROUTE Last administered on 04/19/24at 10:24; Start 04/19/24 at 09:59; Stop 04/19/24 at 10:00; Status DC Meperidine HCl 25 mg STK-MED ONCE .ROUTE Last administered on 04/19/24at 10:29; Start 04/19/24 at 10:22; Stop 04/19/24 at 10:26; Status DC Morphine Sulfate 1 mg Q4HPRN PRN IVP Last administered on 04/23/24at 06:39; Start 04/19/24 at 11:30; Stop 04/26/24 at 11:29 Bupivacaine HCl/ Epinephrine Bitart 20 ml STK-MED ONCE IJ Last administered on 04/19/24at 09:13; Start 04/19/24 at 09:13; Stop 04/19/24 at 13:37; Status DC Leptospermum Honey 1 appl STK-MED ONCE TP Last administered on 04/19/24at 09:35; Start 04/19/24 at 09:35; Stop 04/19/24 at 13:37; Status DC FELECIA VILA Jr. Apr 23, 2024 10:53
--- NOTE | 2024-04-23 12:22 | PN ---
INFECTIOUS DISEASE PROGRESS NOTE Date of Service: Apr 23, 2024 SUBJECTIVE: This is a 59-year-old male patient with past medical history of diabetes mellitus, TIA and amputation of the right foot who presented to the hospital with chief complaint of a draining wound to the right posterior leg. A CT of the right lower extremities showed focal area with air collection in the mid calf levels suggestive of an abscess. General surgery consulted for a right lower extremity abscess. The final Wound cultures from the right lower extremity came back positive for Enterococcus faecalis and Escherichia coli and the right heel wound cultures came back positive for Pseudomonas aeruginosa, E coli and Enterococcus faecalis. Patient is awake, alert and oriented x 3. Patient is status post I&D and excisional debridement of a right calf abscess with wound VAC placement on 04/19/2024. Per report the wound VAC dressing change was done yesterday. No drainage observed from the wound to the right foot stump plantar area. Patient is pending insurance approval to [facility]. Continues on Zosyn. Remains afebrile, temperature is 98.2. We will continue to monitor patient's care. PHYSICAL EXAM EYES: Anicteric. Pupils equal and reactive. HENT: No oral thrush seen, moist Oral mucosa. NECK: Supple, no JVD or thyromegaly. LUNGS: Good air entry. No rales, no rhonchi. CARDIOVASCULAR: S1, S2 regular. No murmur heard. ABDOMEN: Soft, non tender, bowel sounds present, no organomegaly. CENTRAL NERVOUS SYSTEM: Awake, alert, oriented x 3. SKIN: No rashes, no swelling. Right lower extremity and right foot diabetic ulcer. LYMPHATICS: No peripheral lymphadenopathy. MUSCULOSKELETAL: No joint swelling, erythema or tenderness. EXTREMITIES: No cyanosis or clubbing. Right foot amputation diabetic ulcer. BACK: No deformity, no pressure ulcer. GENITOURINARY: No dysuria or hematuria. Vital Sign (Last 12 Hours) 04/23/24 04/23/24 04/23/24 00:28 04:26 07:49 Temp 97.9 98.1 98.2 Pulse 80 79 112 Resp 18 17 17 B/P (MAP) 123/80 120/79 132/90 Pulse Ox 93 94 100 O2 Delivery Room Air Room Air Room Air Intake & Output (last 24hrs) 04/22/24 04/22/24 04/23/24 15:00 23:00 07:00 Intake Total 980 ml 720 ml 600 ml Output Total 600 ml 850 ml Balance 980 ml 120 ml -250 ml LABS: Laboratory: Test 04/23/24 10:45 04/23/24 05:16 04/22/24 05:08 Range/Units Whole Blood Glucose 250 H 70-110 MG/DL Bedside Glucose Comment Notified Nurse White Blood Count 6.1 4.8-10.8 K/uL Red Blood Count 3.26 L 4.50-6.20 MIL/uL Hemoglobin 10.1 L 14.0-18.0 g/dL Hematocrit 29.8 L 42-54 % Mean Corpuscular Volume 91.4 79-99 fL Mean Corpuscular Hemoglobin 31.0 27.0-33.0 pg Mean Corpuscular Hemoglobin Concent 33.9 32.0-36.0 g/dL Red Cell Distribution Width 12.1 11.0-15.5 % Platelet Count 458 H 130-400 K/uL Mean Platelet Volume 9.5 7.5-10.5 fL Immature Granulocyte % (Auto) 0.3 0-1 % Neutrophils (%) (Auto) 62.9 40.0-77.0 % Lymphocytes (%) (Auto) 26.6 21.0-51.0 % Monocytes (%) (Auto) 7.0 3.0-13.0 % Eosinophils (%) (Auto) 2.4 0.0-8.0 % Basophils (%) (Auto) 0.8 0.0-5.0 % Neutrophils # (Auto) 3.9 1.8-7.7 K/uL Lymphocytes # (Auto) 1.6 1.0-4.8 K/uL Monocytes # (Auto) 0.4 0.1-1.0 K/uL Eosinophils # (Auto) 0.15 0.00-0.70 K/uL Basophils # (Auto) 0.05 0.00-0.20 K/uL Absolute Immature Granulocyte (auto 0.02 0-1 K/uL Nucleated Red Blood Cells 0.0 0.0-0.19 % Sodium Level 141 136-145 mmol/L Potassium Level 3.5 3.5-5.1 mmol/L Chloride Level 103 101-111 mmol/L Carbon Dioxide Level 28 21-32 mmol/L Blood Urea Nitrogen 11 7-18 mg/dL Creatinine 1.2 0.5-1.3 mg/dL Glomerular Filtration Rate Calc 71 >90 mL/min Random Glucose 147 H 70-105 mg/dL Total Calcium 8.9 8.5-10.1 mg/dL Magnesium Level 1.70 L 1.80-2.40 mg/dL Total Bilirubin 0.6 0.2-1.0 mg/dL Aspartate Amino Transf (AST/SGOT) 18 10-37 U/L Alanine Aminotransferase (ALT/SGPT) 12 12-78 U/L Alkaline Phosphatase 66 50-136 U/L Total Protein 7.5 6.0-8.3 g/dL Albumin 2.0 L 3.5-5.0 g/dL ASSESSMENT: Right Calcaneal osteomyelitis. Right lower extremity abscess, status post I&D and excisional debridement with wound VAC placement on 04/19/2024. Right calf wound infection with Enterococcus faecalis and E coli. Right foot wound infection with polymicrobial infection. Leukocytosis, resolved. Diabetes mellitus. Peripheral vascular disease. History of amputation of the right foot. PLAN: Continue Zosyn IV. Continue wound care as recommended by General surgery. Continue pain management. Continue monitoring glucose levels. We will monitor electrolytes. PICC line has been placed. Patient has been referred to [facility] and pending insurance approval. This case was reviewed and discussed with my supervising physician and the above assessment and plan was formulated and agreed upon. ATTESTATION BY PHYSICIAN I have seen and examined the patient. I reviewed the documentation, medical decision making, and treatment plan as noted by the mid-level provider above. I agree with the findings and plan of care. MÓNICA MOSQUEDA MD, MIRTA L [facility] Apr 23, 2024 12:22
--- NOTE | 2024-04-23 14:06 | PN ---
[facility] PROGRESS NOTE Date of Service: Apr 23, 2024 Time of Service: 14:[address] Rowland This is a 59-year-old male with past medical history of diabetes, hypertension, hyperlipidemia, right internal carotid stenosis, TIA and diabetic foot ulcers with a surgical history of left great toe amputation and right rearfoot amputation who presents to the ED for evaluation of right posterior leg draining wound.Patient states he was seen in this ER on 04/08/24 for similar complaints and was given antibiotic and sent home with prescription .Patient states he was doing the dressing himself at home but he noticed his wound is getting worse so he went to see his PCP today who advised him to go to the ED for evaluation. Seen and examined patient in the ED awake,alert and coherent,appears comfortable.Patient has a draining open wound behind his right lower leg without foot which is covered with dressing.Patient has also a chronic wound ulcer to his stump.Patient denies fever,chill,nausea,vomiting,chest pain,palpitation and shortness of breath. Latest vital signs temperature 97.7 heart rate 119 blood pressure 174/109 saturation 98% on room air. Labs: Hemoglobin 10.2, hematocrit 30 platelet count 382. Glucose 253 the rest of the chemistry result is unremarkable. X-ray of the right tibia fibula hold revealed there is no acute displaced fracture or dislocation. 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 Vascular calcifications are seen. Soft tissue swelling is seen. Evaluation for osteomyelitis is limited with radiographs degenerative changes ar e seen. While in the ER patient was given 1 L NS bolus, IV Zosyn and vancomycin. Throughout the hospitalization I and D of rightcalf was performed on 04/19/2024. Culture from the right heel showed Enterococcus fasciitis, E coli and Pseudomonas aeruginosa. Left leg culture showed E coli and Enterococcus. Patient was placed on Zosyn per ID. Patient also has a wound VAC to the [facility]. Patient is cleared to be discharged to [facility] for wound lying lead and IV antibiotics. Follow-up with PCP in 2 to 3 days. Follow up with surgeon within a week. Follow up with Dr. Villaesnor with a one week REVIEW OF SYSTEMS CONSTITUTIONAL: Denies fevers, chills, or night sweats. No unintentional weight loss reported. NEUROLOGICAL: Denies headache, amaurosis fugax, motor weakness, sensory deficit, vertigo/spinning sensation, gait abnormalities, or tremors. ENT: No hearing loss, otalgia, otorrhea, rhinitis, rhinorrhea, hoarseness, or sore throat. CARDIOVASCULAR: Denies any exertional angina, dyspnea on exertion, orthopnea, paroxysmal nocturnal dyspnea, palpitations, life-threatening arrhythmias, claudication. PULMONARY: Denies any shortness of breath, cough, phlegm/sputum, hemoptysis, pleuritic chest pain. SLEEP: Denies morning headaches, daytime somnolence or napping. Denies difficulty falling asleep, staying asleep, waking from sleep. Denies knowledge of snoring. GASTROINTESTINAL: Denies any type of dysphagia to either liquids or solids. Denies nausea, vomiting, pyrosis, early satiety, abdominal pain, diarrhea, constipation, or changes in stool consistency or caliber. Denies coffee-ground emesis, hematemesis, hematochezia, or melanotic stools. GENITOURINARY: Denies frequency, urgency, nocturia, hematuria or incontinence (Storage/Irritative symptoms.) Low urinary stream, straining to void, urinary intermittency or hesitancy, splitting of the voiding stream, terminal dribbling. ENDOCRINOLOGIC: Denies polyuria, polydipsia, polyphagia or heat/cold intolerances. HEMATOLOGIC: Denies thrombophilia/previous clots, or coagulopathy/bleeding disorders. ONCOLOGIC: Denies personal history of malignancy. DERMATOLOGIC: Denies rashes or pruritus. PSYCHIATRIC: Denies any suicidal or homicidal ideation. Denies hallucinations. PHYSICAL EXAM GENERAL APPEARANCE: The patient is awake, alert, and oriented, in no acute cardiopulmonary distress. NEUROLOGICAL: Cranial nerves II-XII grossly intact. Motor is 5/5 in bilateral upper and lower extremities proximal to distal. No sensory deficits. HEENT: Face is symmetric. Pupils are equal and reactive. Extraocular movements are intact. NECK: Supple. No JVD. No thyromegaly. No submental, submandibular, pre- /postauricular, occipital or supraclavicular lymphadenopathy. CHEST: Normal chest expansion. No Telemetry. LUNGS: Absence of any rales, rhonchi or any wheezing. CARDIOVASCULAR: Regular. S1 and S2 normal. No appreciable rubs, murmurs or gallops. ABDOMEN: Soft, nontender, and nondistended. There is no rebound, voluntary guarding, or rigidity. : Deferred. No Abrams. EXTREMITIES: Non-edematous and not cyanotic. No clubbing. Good capillary refill. SKIN: No skin breakdown. Vital Signs (last 8hr) Date Time Temp Pulse Resp B/P (MAP) Pulse Ox O2 Delivery O2 Flow Rate FiO2 04/23/24 07:49 98.2 112 17 132/90 100 Room Air LABS: Laboratory: Test 04/23/24 10:45 04/23/24 05:16 04/22/24 05:08 Range/Units Whole Blood Glucose 250 H 70-110 MG/DL Bedside Glucose Comment Notified Nurse White Blood Count 6.1 4.8-10.8 K/uL Red Blood Count 3.26 L 4.50-6.20 MIL/uL Hemoglobin 10.1 L 14.0-18.0 g/dL Hematocrit 29.8 L 42-54 % Mean Corpuscular Volume 91.4 79-99 fL Mean Corpuscular Hemoglobin 31.0 27.0-33.0 pg Mean Corpuscular Hemoglobin Concent 33.9 32.0-36.0 g/dL Red Cell Distribution Width 12.1 11.0-15.5 % Platelet Count 458 H 130-400 K/uL Mean Platelet Volume 9.5 7.5-10.5 fL Immature Granulocyte % (Auto) 0.3 0-1 % Neutrophils (%) (Auto) 62.9 40.0-77.0 % Lymphocytes (%) (Auto) 26.6 21.0-51.0 % Monocytes (%) (Auto) 7.0 3.0-13.0 % Eosinophils (%) (Auto) 2.4 0.0-8.0 % Basophils (%) (Auto) 0.8 0.0-5.0 % Neutrophils # (Auto) 3.9 1.8-7.7 K/uL Lymphocytes # (Auto) 1.6 1.0-4.8 K/uL Monocytes # (Auto) 0.4 0.1-1.0 K/uL Eosinophils # (Auto) 0.15 0.00-0.70 K/uL Basophils # (Auto) 0.05 0.00-0.20 K/uL Absolute Immature Granulocyte (auto 0.02 0-1 K/uL Nucleated Red Blood Cells 0.0 0.0-0.19 % Sodium Level 141 136-145 mmol/L Potassium Level 3.5 3.5-5.1 mmol/L Chloride Level 103 101-111 mmol/L Carbon Dioxide Level 28 21-32 mmol/L Blood Urea Nitrogen 11 7-18 mg/dL Creatinine 1.2 0.5-1.3 mg/dL Glomerular Filtration Rate Calc 71 >90 mL/min Random Glucose 147 H 70-105 mg/dL Total Calcium 8.9 8.5-10.1 mg/dL Magnesium Level 1.70 L 1.80-2.40 mg/dL Total Bilirubin 0.6 0.2-1.0 mg/dL Aspartate Amino Transf (AST/SGOT) 18 10-37 U/L Alanine Aminotransferase (ALT/SGPT) 12 12-78 U/L Alkaline Phosphatase 66 50-136 U/L Total Protein 7.5 6.0-8.3 g/dL Albumin 2.0 L 3.5-5.0 g/dL Current Medications Medications (Trade) Dose Ordered Sig/Jl Route PRN Reason Start Time Stop Time Status Last Admin Dose Admin Aspirin (Aspirin 81mg Ec Tab) 81 mg DAILY PO 04/15/24 09:00 05/15/24 08:59 04/23/24 09:04 81 MG Atorvastatin Calcium (LIPItor 40MG) 40 mg HS PO 04/14/24 21:00 05/14/24 20:59 04/22/24 20:44 40 MG Clopidogrel Bisulfate (plaVIX 75MG) 75 mg DAILY PO 04/16/24 12:30 05/16/24 12:29 04/23/24 09:05 75 MG Dextrose (D50w) 50 ml AD PRN IV HYPOGLYCEMIA PROTOCOL 04/13/24 23:00 05/13/24 22:59 Famotidine (Pepcid 20mg Tab) 20 mg BID PO 04/14/24 09:00 05/14/24 08:59 04/23/24 09:04 20 MG Furosemide (LASix 20MG TAB) 20 mg DAILY PO 04/18/24 09:00 05/18/24 08:59 04/23/24 09:05 20 MG Glucagon (Glucagon 1mg Kit) 1 mg AD PRN IM HYPOGLYCEMIA PROTOCOL 04/13/24 23:00 05/13/24 22:59 Hydralazine HCl (APRESOLine 20MG INJ) 10 mg Q6H PRN IV For:SBP above 160;DBP above 90 04/13/24 23:00 05/13/24 22:59 04/16/24 20:13 10 MG Insulin Human Regular (humuLIN R 100 UNIT/ML 3ML) INSULIN SLIDING SCAL... ACHS SQ 04/14/24 07:30 05/14/24 07:29 04/23/24 11:44 5 UNIT Leptospermum Honey ([employer] (acquired by [employer])) 1 APPLICATION DAILY TP 04/20/24 09:00 05/20/24 08:59 04/23/24 09:05 1 APPL Leptospermum Honey ([employer]) 1 appl DAILY TP 04/15/24 09:00 04/20/24 09:52 DC 04/20/24 08:21 1 APPL Magnesium Sulfate 50 ml @ 0 mls/hr PROTOCOL IV 04/14/24 13:00 04/14/24 12:35 DC Magnesium Sulfate 50 ml @ 0 mls/hr PROTOCOL PRN IV OTHER [SEE ORDER COMMENTS] 04/13/24 23:00 05/13/24 22:59 04/16/24 12:14 0 MLS/HR Metoprolol Tartrate (loprESSOR) 5 mg Q4H PRN IV INCREASED HEART RATE 04/15/24 11:30 05/15/24 11:29 Metoprolol Tartrate (loprESSOR) 12.5 mg BID PO 04/14/24 21:00 04/15/24 11:05 DC 04/15/24 10:06 12.5 MG Metoprolol Tartrate (loprESSOR) 25 mg BID PO 04/15/24 21:00 05/15/24 20:59 04/23/24 09:05 25 MG Morphine Sulfate (morPHINE 2MG SYG) 1 mg Q4HPRN PRN IVP MODERATE PAIN (4-6) 04/19/24 11:30 04/26/24 11:29 04/23/24 06:39 1 MG Morphine Sulfate (morPHINE 2MG SYG) 2 mg Q4H PRN IV MODERATE PAIN (4-6) 04/13/24 23:00 04/19/24 01:59 DC 04/18/24 18:12 2 MG Ondansetron HCl (zoFRAN 4MG INJ) 4 mg Q6H PRN IV NAUSEA/VOMITING 04/13/24 23:00 05/13/24 22:59 Piperacillin Sod/ Tazobactam Sod 50 ml @ 12.5 mls/hr Q8H IV 04/14/24 01:30 04/24/24 01:29 04/23/24 09:05 12.5 MLS/HR Piperacillin Sod/ Tazobactam Sod (Zosyn 3.375gm+NS 50ml) 3.375 gm Q12H STAT IV 04/13/24 17:26 04/13/24 17:33 DC 04/13/24 20:52 3.375 GM Potassium Chloride 100 ml @ 100 mls/hr AD PRN IV POTASSIUM PROTOCOL 04/13/24 23:00 05/13/24 22:59 Potassium Chloride (K-Dur/Klor-Con 20meq) 20 meq AD PRN PO POTASSIUM PROTOCOL 04/13/24 23:00 05/13/24 22:59 04/22/24 13:00 20 MEQ Potassium Chloride (KCl 10% Elixir 20meq/15ml) 20 meq AD PRN PO POTASSIUM PROTOCOL 04/13/24 23:00 05/13/24 22:59 04/19/24 16:08 20 MEQ Vancomycin HCl 250 ml @ 125 mls/hr ONCE IV 04/13/24 23:00 04/13/24 23:06 DC Vancomycin HCl 250 ml @ 125 mls/hr Q12H IV 04/14/24 08:00 04/14/24 09:03 DC Vancomycin HCl 250 ml @ 125 mls/hr Q12H IV 04/14/24 09:30 04/15/24 09:16 DC 04/14/24 21:52 125 MLS/HR Vancomycin HCl 250 ml @ 125 mls/hr Q12H IV 04/15/24 21:30 04/17/24 09:02 DC 04/16/24 20:50 125 MLS/HR Vancomycin HCl (Vancomycin 750mg) 750 mg Q12H IVPB 04/17/24 21:30 04/19/24 11:53 DC 04/18/24 21:11 750 MG Vancomycin HCl (Vancomycin Protocol) 1 each AD IV 04/13/24 17:26 04/19/24 11:53 DC DIAGNOSTICS / RADIOLOGY: [ ] ASSESSMENT: Infected right leg cellulitis with abscess POA s/p incision and drainage of right posterior calf wound and debridement with WOUND VAC 04/19/24 Osteomyelitis anterior aspect of the calcaneus with adjacent cellulitis/myositis, POA Peripheral arterial disease POA Uncontrolled diabetes POA Hypertension POA Hyperlipidemia POA Normocytic normochromic anemia POA History of right foot amputation POA History of left great toe amputation POA History of diabetic foot ulcers POA physical decondition: immobility/instability due to unstable gait, NWB to right leg ATTESTATION BY PHYSICIAN I have seen and examined the patient. I reviewed the documentation, medical decision making, and treatment plan as noted by the mid-level provider above. I agree with the findings and plan of care. NIKKI Nava MD [facility] Apr 23, 2024 14:06
[2024-04-23] MEDS: ZOSYN 3.375GM +NS 50ML IV SCH (19:32)
[2024-04-24 03:14] VITALS: BP 147/93; PULSE 87; RESP 16; TEMP 98.1
[2024-04-24 08:00] VITALS: BP 133/92; PULSE 98; RESP 18; TEMP 98.3; O2SAT 98
--- NOTE | 2024-04-24 09:54 | PN ---
SUBJECTIVE: The patient is followed up for an extensive debridement of his right calf due to necrotizing fasciitis infection. He is followed up for a right heel ulcer with chronic calcaneal osteomyelitis, receiving Medihoney dressings to the heel and wound vacuum therapy to the posterior calf. He has been evaluated for outpatient placement for continuation of wound vacuum therapy and IV antibiotics. He has had polymicrobial wound infection from his calf that is growing back enterococcus faecalis ____ E. coli pseudomonas aeruginosa. Currently been afebrile at 98.1, pulse 87, respirations 16, blood pressure 147/93. The patient is currently receiving the IV Zosyn per Infectious Disease. The patient has been referred to [facility] and is pending insurance authorization. He is currently afebrile. White count of 6.1, H and H 10.1 and 29.9, platelets 458. Glucose 194, BUN and creatinine level 11 and 1.2. OBJECTIVE: His examination today shows wound VAC in place to the right calf posteriorly, ulcer to the right heel 15 x 15 x 15 mm, mixed granular and fibrotic base. ASSESSMENT: A 59-year-old male with extensive debridement of necrotizing fasciitis, infection to the calf, polymicrobial wound infection, receiving wound vacuum therapy and receiving Zosyn. He has chronic calcaneal osteomyelitis. Evaluation of his circulation status suggests peripheral vascular disease. The patient has a polymicrobial wound infection, receiving Zosyn. PLAN: We will continue with Medihoney dressings to the right heel, offloading measures. Continue wound vacuum therapy to the posterior calf surgical debridement site. Continue with Zosyn. Awaiting placement to [facility] for continuation of care. TID: [id number] RECEIPT: [id number]
[2024-04-24 11:50] VITALS: BP 150/98; PULSE 110; RESP 20; TEMP 98
--- NOTE | 2024-04-24 12:53 | DS ---
Discharge Summary Hospital Course Summary: DATE OF ADMISSION:[04/13/2024] DATE OF DISCHARGE:[04/22/2024] DISPOSITION:[[facility]] CONDITION:[Medically stable] CONSULTANTS:[ID, surgeon, orthopedic] FOLLOW UP APPOINTMENTS:[PCP 2 to 3 days. Surgeon within one week. Orthopedic one week] PROCEDURES:[I and D right calf 04/19/2024] IMAGING: report attached to summary MICROBIOLOGY: report attached to summary ACTIVITY:[One-person assist] HOME MEDICATIONS: see med recc NEW MEDICATIONS:[] See med rec EMERGENCY INSTRUCTIONS: The patient was instructed to present to the nearest Emergency departmentr or call 911 once their symptoms will return or worsen Booky(s): This is a 59-year-old male with past medical history of diabetes, hypertension, hyperlipidemia, right internal carotid stenosis, TIA and diabetic foot ulcers with a surgical history of left great toe amputation and right rearfoot amputation who presents to the ED for evaluation of right posterior leg draining wound.Patient states he was seen in this ER on 04/08/24 for similar complaints and was given antibiotic and sent home with prescription .Patient states he was doing the dressing himself at home but he noticed his wound is getting worse so he went to see his PCP today who advised him to go to the ED for evaluation. Seen and examined patient in the ED awake,alert and coherent,appears comfortable.Patient has a draining open wound behind his right lower leg without foot which is covered with dressing.Patient has also a chronic wound ulcer to his stump.Patient denies fever,chill,nausea,vomiting,chest pain,palpitation and shortness of breath. Latest vital signs temperature 97.7 heart rate 119 blood pressure 174/109 saturation 98% on room air. Labs: Hemoglobin 10.2, hematocrit 30 platelet count 382. Glucose 253 the rest of the chemistry result is unremarkable. X-ray of the right tibia fibula hold revealed there is no acute displaced fracture or dislocation. 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 Vascular calcifications are seen. Soft tissue swelling is seen. Evaluation for osteomyelitis is limited with radiographs degenerative changes are seen. While in the ER patient was given 1 L NS bolus, IV Zosyn and vancomycin. Throughout the hospitalization I and D of rightcalf was performed on 04/19/2024. Culture from the right heel showed Enterococcus fasciitis, E coli and Pseudomonas aeruginosa. Left leg culture showed E coli and Enterococcus. Patient was placed on Zosyn per ID. Patient also has a wound VAC to the rightcalf. Patient is cleared to be discharged to [facility] for wound lying lead and IV antibiotics. Follow-up with PCP in 2 to 3 days. Follow up with surgeon within a week. Follow up with Dr. Villasenor with a one week Procedure(s): REVIEW OF SYSTEMS CONSTITUTIONAL: Denies fevers, chills, or night sweats. No unintentional weight loss reported. NEUROLOGICAL: Denies headache, amaurosis fugax, motor weakness, sensory deficit, vertigo/spinning sensation, gait abnormalities, or tremors. ENT: No hearing loss, otalgia, otorrhea, rhinitis, rhinorrhea, hoarseness, or sore throat. CARDIOVASCULAR: Denies any exertional angina, dyspnea on exertion, orthopnea, paroxysmal nocturnal dyspnea, palpitations, life-threatening arrhythmias, claudication. PULMONARY: Denies any shortness of breath, cough, phlegm/sputum, hemoptysis, pleuritic chest pain. SLEEP: Denies morning headaches, daytime somnolence or napping. Denies difficulty falling asleep, staying asleep, waking from sleep. Denies knowledge of snoring. GASTROINTESTINAL: Denies any type of dysphagia to either liquids or solids. Denies nausea, vomiting, pyrosis, early satiety, abdominal pain, diarrhea, constipation, or changes in stool consistency or caliber. Denies coffee-ground emesis, hematemesis, hematochezia, or melanotic stools. GENITOURINARY: Denies frequency, urgency, nocturia, hematuria or incontinence (Storage/Irritative symptoms.) Low urinary stream, straining to void, urinary intermittency or hesitancy, splitting of the voiding stream, terminal dribbling. ENDOCRINOLOGIC: Denies polyuria, polydipsia, polyphagia or heat/cold intolerances. HEMATOLOGIC: Denies thrombophilia/previous clots, or coagulopathy/bleeding disorders. ONCOLOGIC: Denies personal history of malignancy. DERMATOLOGIC: Denies rashes or pruritus. PSYCHIATRIC: Denies any suicidal or homicidal ideation. Denies hallucinations. Assessment/Plan: ASSESSMENT: Infected right leg cellulitis with abscess POA s/p incision and drainage of right posterior calf wound and debridement with WOUND VAC 04/19/24 Osteomyelitis anterior aspect of the calcaneus with adjacent cellulitis/myositis, POA Peripheral arterial disease POA Uncontrolled diabetes POA Hypertension POA Hyperlipidemia POA Normocytic normochromic anemia POA History of right foot amputation POA History of left great toe amputation POA History of diabetic foot ulcers POA physical decondition: immobility/instability due to unstable gait, NWB to right leg Assessment/Plan: ASSESSMENT: Infected right leg cellulitis with abscess POA s/p incision and drainage of right posterior calf wound and debridement with WOUND VAC 04/19/24 Osteomyelitis anterior aspect of the calcaneus with adjacent cellulitis/myositis, POA Peripheral arterial disease POA Uncontrolled diabetes POA Hypertension POA Hyperlipidemia POA Normocytic normochromic anemia POA History of right foot amputation POA History of left great toe amputation POA History of diabetic foot ulcers POA physical decondition: immobility/instability due to unstable gait, NWB to right leg Home Medications: Active Scripts Metformin HCl (Metformin HCl) 1,000 Mg Tablet, 1000 MG PO BID, #60 TAB HALF A TABLET TWICE A DAY WITH MEALS Prov:DILLON MARTINEZ NP 04/08/24 Insulin NPL/Insulin Lispro (Humalog Mix 75/25) 100 Unit/Ml (75-25) Inj, 10 UNITS SQ DAILY, #1 VIAL 0 Refills Prov:DILLON MARTINEZ NP 04/08/24 Clindamycin HCl (Clindamycin HCl) 300 Mg Capsule, 1 CAP PO QID for 10 Days, #40 CAP 0 Refills Prov:DILLON MARTINEZ NP 04/08/24 Aspirin (ASPIRIN 81 MG ECTAB) 81 Mg Ectab, 81 MG PO DAILY for 30 Days, #30 TAB.EC 2 Refills Prov:JANNET BLAKELY MD 05/30/23 Nitroglycerin (Nitroglycerin) 0.4 Mg Tab.subl, 0.4 MG SL [id number] PRN for chest pain, #30 TAB.SL 2 Refills Prov:JANNET BLAKELY MD 05/30/23 Ticagrelor (Brilinta) 90 Mg Tablet, 90 MG PO BID for 30 Days, #60 TAB 2 Refills Prov:JANNET BLAKELY MD 05/30/23 [Nitroglycerin 0.4MG Sl Tab] 0.4 MG TAB.SUBL No Conflict Check, 0.4 MG SL AD PRN for CHEST PAIN for 30 Days, #30 2 Refills Prov:JANNET BLAKELY MD 05/30/23 Metoprolol Tartrate (Lopressor) 25 Mg Tab, 12.5 MG PO BID for 30 Days, #60 TAB 2 Refills Prov:JANNET BLAKELY MD 05/30/23 Atorvastatin Calcium (LIPITOR) 40 Mg Tablet, 40 MG PO HS for 30 Days, #30 TAB 2 Refills Prov:JANNET BLAKELY MD 05/30/23 Reported Medications Glimepiride (Glimepiride) 4 Mg Tablet, 1 TAB PO DAILY 05/25/23 Metaxalone (Metaxalone) 400 Mg Tablet, 1 TAB PO DAILY 05/25/23 Sulfamethoxazole/Trimethoprim (Sulfamethoxazole-Tmp Ss Tablet) 400 Mg-80 Mg Tablet, 2 TAB PO BID 05/25/23 Insulin Degludec (Tresiba Flextouch U-100) 100 Unit/Ml (3 Ml) Insuln.pen, 15 UNITS SQ [id number] 05/25/23 Omeprazole (Omeprazole) 40 Mg Capsule.dr, 1 CAP PO DAILY 04/02/23 Metformin HCl (Metformin HCl) 500 Mg Tablet, 1 TAB PO BID 04/02/23 Time spent arranging discharge: 31-60 minutes ATTESTATION BY PHYSICIAN I have seen and examined the patient. I reviewed the documentation, medical decision making, and treatment plan as noted by the mid-level provider above. I agree with the findings and plan of care. MD MAJO Rowland [facility] Apr 24, 2024 12:53
--- NOTE | 2024-04-24 14:26 | PN ---
INFECTIOUS DISEASE PROGRESS NOTE Date of Service: Apr 24, 2024 SUBJECTIVE: This is a 59-year-old male patient with past medical history of diabetes mellitus, TIA and amputation of the right foot who presented to the hospital with chief complaint of a draining wound to the right posterior leg. A CT of the right lower extremities showed focal area with air collection in the mid calf levels suggestive of an abscess. General surgery consulted for a right lower extremity abscess. The final Wound cultures from the right lower extremity came back positive for Enterococcus faecalis and Escherichia coli and the right heel wound cultures came back positive for Pseudomonas aeruginosa, E coli and Enterococcus faecalis. Patient is awake, alert and oriented x 3. Patient is status post I&D and excisional debridement of a right calf abscess with wound VAC placement on 04/19/2024. Patient remains afebrile, temperature 98.1. Wound VAC dressing is scheduled to be changed today. Pain being managed with morphine IV. Patient requires assistance to be out of bed. Patient is pending insurance approval to [facility]. Continues on [facility]. We will continue to monitor patient's care. PHYSICAL EXAM EYES: Anicteric. Pupils equal and reactive. HENT: No oral thrush seen, moist Oral mucosa. NECK: Supple, no JVD or thyromegaly. LUNGS: Good air entry. No rales, no rhonchi. CARDIOVASCULAR: S1, S2 regular. No murmur heard. ABDOMEN: Soft, non tender, bowel sounds present, no organomegaly. CENTRAL NERVOUS SYSTEM: Awake, alert, oriented x 3. SKIN: No rashes, no swelling. Right lower extremity and right foot diabetic ulcer. LYMPHATICS: No peripheral lymphadenopathy. MUSCULOSKELETAL: No joint swelling, erythema or tenderness. EXTREMITIES: No cyanosis or clubbing. Right foot amputation diabetic ulcer. BACK: No deformity, no pressure ulcer. GENITOURINARY: No dysuria or hematuria. Vital Sign (Last 12 Hours) 04/24/24 04/24/24 04/24/24 03:14 08:00 11:50 Temp 98.1 98.2 98.1 Pulse 87 98 110 Resp 16 18 20 B/P (MAP) 147/93 133/92 150/98 Pulse Ox 95 98 97 O2 Delivery Room Air Room Air Room Air Intake & Output (last 24hrs) 04/23/24 04/23/24 04/24/24 15:00 23:00 07:00 Intake Total 100.0 ml Output Total 400 ml 1250 ml 900 ml Balance -400 ml -1250 ml -800.0 ml LABS: Laboratory: Test 04/24/24 11:04 04/23/24 05:16 Range/Units Whole Blood Glucose 286 H 70-110 MG/DL Bedside Glucose Comment Notified Nurse ASSESSMENT: Right Calcaneal osteomyelitis. Right lower extremity abscess, status post I&D and excisional debridement with wound VAC placement on 04/19/2024. Right calf wound infection with Enterococcus faecalis and E coli. Right foot wound infection with polymicrobial infection. Leukocytosis, resolved. Diabetes mellitus. Peripheral vascular disease. History of amputation of the right foot. PLAN: Continue Zosyn IV. Continue wound care as recommended by General surgery. Continue pain management. Continue monitoring glucose levels. We will monitor electrolytes. Patient has been referred to [facility] and pending insurance approval. This case was reviewed and discussed with my supervising physician and the above assessment and plan was formulated and agreed upon. ATTESTATION BY PHYSICIAN I have seen and examined the patient. I reviewed the documentation, medical decision making, and treatment plan as noted by the mid-level provider above. I agree with the findings and plan of care. MÓNICA MOSQUEDA MD, [facility]IRTA L [facility] Apr 24, 2024 14:26
--- NOTE | 2024-04-24 14:57 | NUR ---
CM Note: [facility] approval CM received authorization from insurance for [facility] via secure email. CM spoke to Addie samuels/Jeovany, made aware of above. Confirmed approval, pt may transfer today. MOT filled out. EMS arranged today, primary nurse to call [facility] once pt ready to DC. Primary nurse Catrachita made aware. Fiona JACKSON updated, DC order in place and med recon done. CM to continue to follow up.
[2024-04-24 16:00] VITALS: BP 144/96; PULSE 108; RESP 18; TEMP 98
[2024-04-24] MEDS: morPHINE 2 MG SYG IVP ONE (16:39)
--- NOTE | 2024-04-24 18:12 | NUR ---
PATIENT BEING D/C TO [facility]. REPORT HAS BEEN GIVEN TO FRANK JIMENEZ AT [facility]. EMS NOTIFIED AND WILL TRANSPORT PATIENT
[2024-04-24 20:00] VITALS: BP 143/84; PULSE 116; RESP 20; TEMP 99.1
--- NOTE | 2024-04-24 20:52 | NUR ---
DISCHARGE Patient transferred to [facility] via [facility] EMS at this time. Vitals stable. Denies pain. Personal belongings taken with patient.
== END 2024-04-24 20:52 | DRG 570 ==
LOC: EDH 16:42 → EDHIP 21:26 → 4BH 04-14 14:45
PROVIDERS: ADMIT Internal Medicine; ATTEND Internal Medicine
PROC: 0JBN0ZZ Excision of Right Lower Leg Subcutaneous Tissue and Fascia, Open Approach (ICD-10-PCS; principal; 2024-04-19 08:30)
PROC: 02HV33Z Insertion of Infusion Device into Superior Vena Cava, Percutaneous Approach (ICD-10-PCS; 2024-04-21)
PROC: B548ZZA Ultrasonography of Superior Vena Cava, Guidance (ICD-10-PCS; 2024-04-21)
DX: L03.115 Cellulitis of right lower limb (principal); M72.6 Necrotizing fasciitis; G45.9 Transient cerebral ischemic attack, unspecified; M86.171 Other acute osteomyelitis, right ankle and foot; L97.418 Non-pressure chronic ulcer of right heel and midfoot with other specified severity; L97.518 Non-pressure chronic ulcer of other part of right foot with other specified severity; L02.415 Cutaneous abscess of right lower limb; L03.116 Cellulitis of left lower limb; E11.69 Type 2 diabetes mellitus with other specified complication; I10 Essential (primary) hypertension; E11.65 Type 2 diabetes mellitus with hyperglycemia; E78.5 Hyperlipidemia, unspecified; D64.9 Anemia, unspecified; E11.51 Type 2 diabetes mellitus with diabetic peripheral angiopathy without gangrene; B95.2 Enterococcus as the cause of diseases classified elsewhere; B96.5 Pseudomonas (aeruginosa) (mallei) (pseudomallei) as the cause of diseases classified elsewhere; E11.621 Type 2 diabetes mellitus with foot ulcer; E11.622 Type 2 diabetes mellitus with other skin ulcer; L60.2 Onychogryphosis; I25.10 Atherosclerotic heart disease of native coronary artery without angina pectoris; E88.09 Other disorders of plasma-protein metabolism, not elsewhere classified; E66.9 Obesity, unspecified; B96.20 Unspecified Escherichia coli [E. coli] as the cause of diseases classified elsewhere; B35.1 Tinea unguium; Z79.02 Long term (current) use of antithrombotics/antiplatelets; Z79.82 Long term (current) use of aspirin; Z79.899 Other long term (current) drug therapy; Z82.49 Family history of ischemic heart disease and other diseases of the circulatory system; Z82.5 Family history of asthma and other chronic lower respiratory diseases; Z83.3 Family history of diabetes mellitus; Z86.73 Personal history of transient ischemic attack (TIA), and cerebral infarction without residual deficits; Z91.148 Patient's other noncompliance with medication regimen for other reason; Z95.5 Presence of coronary angioplasty implant and graft; Z91.199 Patient's noncompliance with other medical treatment and regimen due to unspecified reason; Z89.412 Acquired absence of left great toe; Z89.431 Acquired absence of right foot; Z68.23 Body mass index [BMI] 23.0-23.9, adult
CPT/HCPCS: 36415; 36569; 71045; 73590; 73630; 73700; 73718; 75635; 78582; 80048; 80053; 80061; 80202; 82948; 83036; 83735; 85025; 85027; 85378; 85610; 85651; 85730; 87040; 87070; 87076; 87086; 87186; 87205; 88304; 93923; 93926; 96365; 96375; 99285; A4450; A9540; A9558; C1894; G0378; J0330; J0360; J1815; J2003; J2175; J2250; J2270; J2371; J2405; J2543; J2704; J3010; J3370; J3475; J3490; J7030; Q9967; 3370; A4222; A4223; A4649; A4930; A6210; A9272

== ENCOUNTER 2024-07-02 23:35 | Inpatient (IN) | payer BC ==
[~2024-07-02] VITALS: Ht 182.9 cm; Wt 70.3 kg
[~2024-07-02 23:35] MED LIST changes: -CLIN-141 PO; -HUMLIS7525 SQ; -NITR0.4T50 SL; -Nitroglycerin 0.4MG Sl Tab SL; -TICA90TA PO
--- NOTE | 2024-07-02 23:43 | ERN ---
ED Note History of Present Illness Stated Complaint: CHEST PAIN Chief Complaint: Chest Pain Time Seen by MD: 23:38 Dictation: The patient is a 59-year-old male with a medical history that includes hypertension, type 2 diabetes mellitus, multiple cerebrovascular accidents (C VAs), and hypercholesterolemia arrived at the emergency department via EMS with the primary complaint of chest pain, which he described as being centrally located and having begun at 4:00 p.m. today. According to the patient, the pain onset was sudden, it is localized to the center of the chest, and it did not. He reports no factors that exacerbate or alleviate the pain. Additionally, he experienced dizziness but denies any history of falls. Given his previous three strokes, his primary care physician advised him to seek emergency care if he experiences chest pain. The chest pain lasted for few minutes and he is currently pain free. The patient consumes alcohol daily and had three alcoholic beverages prior to his arrival. The patient was admitted at this facility for the cellulitis in the April and was discharged to [facility] for few weeks for IV antibiotics. Allergies: Coded Allergies: No Known Allergies (Verified Allergy, Severe, 02/17/15) Home Meds Active Scripts Metformin HCl (Metformin HCl) 1,000 Mg Tablet, 1000 MG PO BID, #60 TAB HALF A TABLET TWICE A DAY WITH MEALS Prov:DILLON MARTINEZ NP 04/08/24 Aspirin (ASPIRIN 81 MG ECTAB) 81 Mg Ectab, 81 MG PO DAILY for 30 Days, #30 TAB.EC 2 Refills Prov:JANNET BLAKELY MD 05/30/23 Metoprolol Tartrate (Lopressor) 25 Mg Tab, 12.5 MG PO BID for 30 Days, #60 TAB 2 Refills Prov:JANNET BLAKELY MD 05/30/23 Atorvastatin Calcium (LIPITOR) 40 Mg Tablet, 40 MG PO HS for 30 Days, #30 TAB 2 Refills Prov:JANNET BLAKELY MD 05/30/23 Reported Medications Glimepiride (Glimepiride) 4 Mg Tablet, 1 TAB PO DAILY 05/25/23 Metaxalone (Metaxalone) 400 Mg Tablet, 1 TAB PO DAILY 05/25/23 Sulfamethoxazole/Trimethoprim (Sulfamethoxazole-Tmp Ss Tablet) 400 Mg-80 Mg Tablet, 2 TAB PO BID 05/25/23 Insulin Degludec (Tresiba Flextouch U-100) 100 Unit/Ml (3 Ml) Insuln.pen, 15 UNITS SQ ACBKFST 05/25/23 Omeprazole (Omeprazole) 40 Mg Capsule.dr, 1 CAP PO DAILY 04/02/23 Metformin HCl (Metformin HCl) 500 Mg Tablet, 1 TAB PO BID 04/02/23 Past Medical History Past Medical History: Diabetes-Type II, Heart Disease, Hypertension Surgical History: None Surgical History Other: R FOOT PARTIAL AMPUTATION, LEFT TOE AMPUTATION Family History: DM, HTN Social History: ETOH Review of System Dictation REVIEW OF SYSTEMS CONSTITUTIONAL: Denies fevers, chills, or night sweats. No unintentional weight loss reported. NEUROLOGICAL: Denies headache, amaurosis fugax, motor weakness, sensory deficit, vertigo/spinning sensation, gait abnormalities, or tremors. ENT: No hearing loss, otalgia, otorrhea, rhinitis, rhinorrhea, hoarseness, or sore throat. CARDIOVASCULAR: Complaints of midsternal chest pain, Denies any exertional angina, dyspnea on exertion, orthopnea, paroxysmal nocturnal dyspnea, palpitations, life-threatening arrhythmias, claudication. PULMONARY: Denies any shortness of breath, cough, phlegm/sputum, hemoptysis, pleuritic chest pain. SLEEP: Denies morning headaches, daytime somnolence or napping. Denies difficulty falling asleep, staying asleep, waking from sleep. Denies knowledge of snoring. GASTROINTESTINAL: Denies any type of dysphagia to either liquids or solids. De nies nausea, vomiting, pyrosis, early satiety, abdominal pain, diarrhea, constipation, or changes in stool consistency or caliber. Denies coffee-ground emesis, hematemesis, hematochezia, or melanotic stools. GENITOURINARY: Denies frequency, urgency, nocturia, hematuria or incontinence (Storage/Irritative symptoms.) Low urinary stream, straining to void, urinary intermittency or hesitancy, splitting of the voiding stream, terminal dribbling. ENDOCRINOLOGIC: Denies polyuria, polydipsia, polyphagia or heat/cold intolerances. HEMATOLOGIC: Denies thrombophilia/previous clots, or coagulopathy/bleeding disorders. ONCOLOGIC: Denies personal history of malignancy. DERMATOLOGIC: Denies rashes or pruritus. PSYCHIATRIC: Denies any suicidal or homicidal ideation. Denies hallucinations. Initial Vital Sign VS Vital Signs Date Time Temp Pulse Resp B/P (MAP) Pulse Ox O2 Delivery O2 Flow Rate FiO2 07/02/24 23:37 100.0 114 16 161/86 97 Room Air 07/03/24 01:43 0 21 Physical Exam Dictation PHYSICAL EXAM GENERAL APPEARANCE: The patient is awake, alert, and oriented, in no acute cardiopulmonary distress. NEUROLOGICAL: Cranial nerves II-XII grossly intact. Motor is 5/5 in bilateral upper and lower extremities proximal to distal. No sensory deficits. HEENT: Face is symmetric. Pupils are equal and reactive. Extraocular movements are intact. NECK: Supple. No JVD. No thyromegaly. No submental, submandibular, pre-/postauricular, occipital or supraclavicular lymphadenopathy. CHEST: Normal chest expansion. No Telemetry. LUNGS: Absence of any rales, rhonchi or any wheezing. CARDIOVASCULAR: Regular. S1 and S2 normal. No appreciable rubs, murmurs or gallops. ABDOMEN: Soft, nontender, and nondistended. There is no rebound, voluntary guarding, or rigidity. : Deferred. No Abrams. Extremities: Right foot amputation, wound is covered with the dressings, left great toe amputation Results (Laboratory/Radiology) Laboratory/Radiology Laboratory Tests Test 07/02/24 23:47 07/03/24 00:50 07/03/24 01:33 White Blood Count 12.2 K/uL (4.8-10.8) H Red Blood Count 3.55 MIL/uL (4.50-6.20) L Hemoglobin 11.2 g/dL (14.0-18.0) L Hematocrit 31.6 % (42-54) L Mean Corpuscular Volume 89.0 fL (79-99) Mean Corpuscular Hemoglobin 31.5 pg (27.0-33.0) Mean Corpuscular Hemoglobin Concent 35.4 g/dL (32.0-36.0) Red Cell Distribution Width 12.4 % (11.0-15.5) Platelet Count 143 K/uL (130-400) Mean Platelet Volume 10.0 fL (7.5-10.5) Immature Granulocyte % (Auto) 0.4 % (0-1) Neutrophils (%) (Auto) 82.2 % (40.0-77.0) H Lymphocytes (%) (Auto) 10.3 % (21.0-51.0) L Monocytes (%) (Auto) 6.3 % (3.0-13.0) Eosinophils (%) (Auto) 0.5 % (0.0-8.0) Basophils (%) (Auto) 0.3 % (0.0-5.0) Neutrophils # (Auto) 10.0 K/uL (1.8-7.7) H Lymphocytes # (Auto) 1.3 K/uL (1.0-4.8) Monocytes # (Auto) 0.8 K/uL (0.1-1.0) Eosinophils # (Auto) 0.06 K/uL (0.00-0.70) Basophils # (Auto) 0.04 K/uL (0.00-0.20) Absolute Immature Granulocyte (auto 0.05 K/uL (0-1) Nucleated Red Blood Cells 0.0 % (0.0-0.19) Prothrombin Time 11.1 SEC (9.6-11.6) Prothromb Time International Ratio 0.99 (0.85-1.15) Activated Partial Thromboplast Time 33.2 SEC (26.3-35.5) Sodium Level 129 mmol/L (136-145) L Potassium Level 4.6 mmol/L (3.5-5.1) Chloride Level 95 mmol/L (101-111) L Carbon Dioxide Level 27 mmol/L (21-32) Blood Urea Nitrogen 27 mg/dL (7-18) H Creatinine 1.2 mg/dL (0.5-1.3) Glomerular Filtration Rate Calc 71 mL/min (>90) Random Glucose 184 mg/dL (70-105) H Total Calcium 8.5 mg/dL (8.5-10.1) Troponin I High Sensitivity 883 ng/L (4-75) *H 817 ng/L (4-75) *H B-Type Natriuretic Peptide 249 pg/mL (0-100) H Serum Alcohol 25 mg/dL (0-10) H Urine Color LIGHT-YELLOW (YELLOW) Urine Appearance CLEAR (CLEAR) Urine pH 6.0 (5.0-8.0) Urine Specific [place] 1.012 (1.001-1.031) Urine Protein 300 mg/dL (NEGATIVE) H Urine Glucose (UA) 50 mg/dL (NEGATIVE) H Urine Ketones NEGATIVE mg/dL (NEGATIVE) Urine Occult Blood MODERATE (NEGATIVE) H Urine Nitrate NEGATIVE (NEGATIVE) Urine Bilirubin NEGATIVE mg/dL (NEGATIVE) Urine Urobilinogen 0.2 mg/dL (0.2-1.0) Urine Leukocyte Esterase 25 [place]/uL (NEGATIVE) H Urine RBC 2-5 /HPF (0-1) H Urine WBC 2-5 /HPF (0-1) H Urine Squamous Epithelial Cells RARE /HPF (0-2) Urine Bacteria FEW /HPF (None Seen) Urine Opiates Screen NEGATIVE (NEGATIVE) Urine Barbiturates Screen NEGATIVE (NEGATIVE) Urine Phencyclidine Screen NEGATIVE (NEGATIVE) Urine Amphetamines Screen NEGATIVE (NEGATIVE) Urine Benzodiazepines Screen NEGATIVE (NEGATIVE) Urine Cocaine Screen NEGATIVE (NEGATIVE) Urine Marijuana (THC) Screen NEGATIVE (NEGATIVE) Lactic Acid Level 1.5 mmol/L (0.8-2.5) EKG Comment: Rate 135, sinus tachycardia Multiple premature complexes AL [address] Scan Comment: [place] [id number] [address] IMAGING REPORT Signed PATIENT: SAVANA DUFF MR#: [id number] : 1965 SEX: M AGE: 59 LOCATION: [facility] ORDER STATUS: [facility] REPORT#: [id number] SERVICE REASON: Chest pain, Tachycardia ORDERING PHYSICIAN: AGUSTINA LEONARD MD PROCEDURE: CHES PE - CT CHEST PE PROTOCOL WWO CONT CT CHEST PE PROTOCOL WWO CONT HISTORY: Chest pain COMPARISON: None TECHNIQUE: CT angiography of the chest was performed. The study was performed using angiographic technique with maximum intensity projection reconstruction images. Patient was given 75 cc of Omnipaque through intravenous route. FINDINGS: No CT evidence of filling defect is seen to suggest pulmonary embolus. Coronary arterial calcifications are seen. No evidence of parenchymal disease is seen. No CT evidence of pleural effusion or pericardial effusion is seen. The heart is enlarged. No evidence of adrenal mass is seen. Fatty changes of the liver are noted. Degenerative changes of the spine are noted. IMPRESSION: 1. No CT evidence of acute pulmonary embolus is seen. CT was performed with one or more following dose reduction techniques: automated exposure control, adjustment of the mA and kv according to patient's size, or use of a iterative reconstruction technique. DICTATED BY: DEMETRIUS BOB MD DATE: 07/03/24109 ELECTRONICALLY SIGNED BY: DEMETRIUS BOB MD DATE: 07/03/24119 ED Course ED Course Orders Procedure Category Date Status Time Cbc With Differential LAB 07/02/24 Complete 23:38 Basic Metabolic Panel LAB 07/02/24 Complete 23:38 Troponin I High LAB 07/02/24 Complete Sensitivity 23:38 B-Type Natriuretic LAB 07/02/24 Complete Peptide 23:38 Urinalysis Profile LAB 07/02/24 Complete 23:38 Alcohol, Blood LAB 07/02/24 Complete 23:38 12 Lead Ekg Tracing- EKG 07/02/24 Logged Technical 23:38 Chest 1vw RAD 07/02/24 Taken 23:39 Drug Screen Urine LAB 07/02/24 Complete 23:39 Aspirin 325mg Tab PHA 07/03/24 Complete (Aspirin 325mg Tab) 00:30 Ct Chest Pe Protocol CT 07/03/24 Resulted Wwo Cont 00:17 Troponin I High LAB 07/03/24 Complete Sensitivity 02:00 Troponin I High LAB 07/03/24 Logged Sensitivity 12:25 Iohexol (Omnipaque) PHA 07/03/24 Complete 00:40 Blood Cult FLOR 07/03/24 In Process 01:24 Lactic Acid LAB 07/03/24 Complete 01:24 0.9%Nacl 1000ml (Ns PHA 07/03/24 Complete 1000ml) 01:30 Zosyn 3.375gm+Ns 50ml PHA 07/03/24 Complete (Zosyn 3.375gm+Ns 01:30 Acetaminophen 500mg PHA 07/03/24 Complete Tab (Tylenol 500mg T 02:00 Admit Orders ADM 07/03/24 Transmitted 02:42 Etoh Alcohol CHENTE 07/03/24 In Process Withdrawal Ords 02:50 Chlordiazepoxide Hcl PHA 07/03/24 In Process 25 Mg Cap (Librium 03:00 Lorazepam 2 Mg PHA 07/03/24 In Process (Ativan) 03:00 Pharmacy PHA 07/03/24 In Process Communication 03:00 Use The Ciwa-Ar CPOE 07/03/24 Transmitted Assmt. Tool 02:50 Assess The Need For CPOE 07/03/24 Transmitted Seizure & 02:50 Vs Per Unit Routine & CPOE 07/03/24 Transmitted With 02:50 Document Etoh CPOE 07/03/24 Transmitted Withdrawal Score 02:50 Anaerobic Culture FLOR 07/03/24 Logged 02:51 Aerobic Culture FLOR 07/03/24 Logged 02:51 Anaerobic Culture FLOR 07/03/24 Logged 02:52 Aerobic Culture FLOR 07/03/24 Logged 02:52 Consistent Carb DIET 07/04/24 Transmitted Breakfast Basic Metabolic Panel LAB 07/03/24 Logged 04:00 Cbc With Differential LAB 07/03/24 Logged 04:00 Magnesium LAB 07/03/24 Logged 04:00 Phosphorus LAB 07/03/24 Logged 04:00 Initiate Heparin CHENTE 07/03/24 In Process Treatment Pro 02:54 Heparin 5,000 Unit PHA 07/03/24 In Process Vial (Heparin 5,000 U 04:00 Heparin 25,000 PHA 07/03/24 In Process Units/250ml D5w 04:00 Heparin Protocol CPOE 07/03/24 Transmitted Monitoring 02:54 Activity: Ad Halie CPOE 07/03/24 Transmitted 02:54 Apply Knee High Teds CPOE 07/03/24 Transmitted 02:54 Apply Scds CPOE 07/03/24 Transmitted 02:54 Condition: CPOE 07/03/24 Transmitted 02:54 Nurse To Enter Home CPOE 07/03/24 Transmitted Medication 02:54 Oxygen By Nc/Pulse Ox CPOE 07/03/24 Transmitted 02:54 Telemetry Monitoring CPOE 07/03/24 Transmitted 02:54 Vital Signs(Adult CPOE 07/03/24 Transmitted Hospitalist) 02:54 Zosyn 3.375gm+Ns 50ml PHA 07/03/24 In Process (Zosyn 3.375gm+Ns 09:30 0.9%Nacl 50ml (Ns PHA 07/03/24 In Process 50ml) 03:00 Lactated Ringers PHA 07/03/24 In Process 1000ml (Lactated 03:00 Procalcitonin LAB 07/03/24 In Process 02:54 Ondansetron 4mg Inj PHA 07/03/24 In Process (Zofran 4mg Inj) 03:00 Nitroglycerin 1gm PHA 07/03/24 In Process Oint (Nitroglycerin 1g 03:00 Hydralazine 20mg Inj PHA 07/03/24 In Process (Apresoline 20mg In 03:00 Famotidine 20mg Tab PHA 07/03/24 In Process (Pepcid 20mg Tab) 09:00 Acetaminophen 325 Tab PHA 07/03/24 In Process (Tylenol 325mg Tab 03:00 Morphine 2mg Syg PHA 07/03/24 In Process (Morphine 2mg Syg) 03:30 Cardiology Consult CONPHYSVC 07/03/24 Transmitted 08:00 Wound Mgt Consult CONPHYSVC 07/03/24 Transmitted Eval & Treat 03:10 Wet-To-Dry Normal WOUND 07/03/24 Transmitted Saline Drsg 03:10 Daily Weights CPOE 07/03/24 Transmitted 03:10 I&O Q Shift CPOE 07/03/24 Transmitted 03:10 Pt And Ptt LAB 07/03/24 Complete 03:25 Heparin 10,000 Unit PHA 07/03/24 Complete Vial (Heparin 10,000 03:30 Current Medications Medications (Trade) Dose Ordered Sig/Jl Route PRN Reason Start Time Stop Time Status Last Admin Dose Admin Acetaminophen (TYLenol 500MG TAB) 1,000 mg ONCE ONCE PO 07/03/24 02:00 07/03/24 02:01 DC 07/03/24 01:38 Aspirin (Aspirin 325mg Tab) 325 mg ONCE ONCE PO 07/03/24 00:30 07/03/24 00:31 DC 07/03/24 00:50 Iohexol (Omnipaque) 75 ml STK-MED ONCE IV 07/03/24 00:40 07/03/24 00:44 DC Piperacillin Sod/ Tazobactam Sod (Zosyn 3.375gm+NS 50ml) 3.375 gm Q8H IV 07/03/24 01:30 07/03/24 03:03 DC 07/03/24 01:37 Sodium Chloride 2,000 ml @ 0 mls/hr ONCE ONCE IV 07/03/24 01:30 07/03/24 01:31 DC 07/03/24 01:37 Vital Signs Date Time Temp Pulse Resp B/P (MAP) Pulse Ox O2 Delivery O2 Flow Rate FiO2 07/03/24 02:48 134 18 140/79 97 Room Air* 0 21 07/03/24 01:43 99.1 136 18 131/76 97 Room Air* 0 21 07/03/24 01:38 100.0 07/02/24 23:37 100.0 114 16 161/86 97 Room Air 12:30 The patient was examined in the hallway. The history was collected from the patient himself and the EMS. EKG showed sinus tachycardia, temperature 100.0, pulse rate 114, R 16, blood pressure 161/86, 97% saturating on room air. He currently denies chest pain and pain free at the moment. We will order basic labs and cardiac work up to rule out chest pain of cardiac origin. Based on the labs and radiology investigation, we will decide if the patient requires heavy emergency treatment or inpatient hospitalization. We will continue closely monitor the patient. 12:50 The laboratory results indicate a white blood cell count of 12.2, hyponatremia with a sodium level of 129, hypochloremia with a chloride level of 95, a troponin level of 883, and a BNP of 249. The patient is currently on dual antiplatelet therapy. Considering the existing risk factors, we will proceed with a CT pulmonary embolism scan as per protocol to exclude the possibility of a pulmonary embolism. Continuous monitoring of the patient will be maintained. 02:30 Repeat troponin trended down to [address] PE was negative for pulmonary embolism. The patient meet SIRS criteria, the source of infection is uncertain. The patient still is tachycardic with pulse rate 110. At this time we think that the patient requires inpatient hospitalization for further evaluation. The hospitalist on-call was informed and accepted the admission. Medical Decision Making [facility] Differential diagnosis: SIRS, Chest pain at moderate risk of cardiac etiology, Elevated troponin, Demand ischemia Rationale: Tests considered and ordered secondary to shared decision making include: Previous outside records reviewed: Old ER visits. Risk of complication and/or morbidity or mortality of patient management: None Medications-Per medication reconciliation Need for hospitalization: Patient does meet the criteria for hospitalization. Need for emergency major/minor surgery: No There are no social concerns with this patient. Prescription drug management Prescriptions will include symptomatic care Patient's prior external medical records from other ER visits were reviewed by me as indicated. Prior testing and results from previous visits were reviewed. Prior tests were taken into account with medical decision making and resource utilization, independent historian/historians were used to obtain complete medical history. I independently interpreted the test that were performed, results were reviewed by me and considered findings on radiology if ordered. DX & DISP Disposition: Inpatient Departure Impression: Primary Impression: Chest pain with moderate risk for cardiac etiology Additional Impressions: Sepsis, NSTEMI (non-ST elevated myocardial infarction), Dehydration Critical Time: 30 minutes (Critical Care Procedure NoteAuthorized and Performed by: meTotal critical care time: Approximately 36 minutesDue to a high probability of clinically significant, life threatening deterioration, the p atient required my highest level of preparedness to intervene emergently and I personally spent this critical care time directly and personally managing the patient. This critical care time included obtaining a history; examining the patient; pulse oximetry; ordering and review of studies; arranging urgent treatment with development of a management plan; evaluation of patient's res ponse to treatment; frequent reassessment; and, discussions with other providers.This critical care time was performed to assess and manage the high probability of imminent, life-threatening deterioration that could result in multi-organ failure. It was exclusive of separately billable procedures and treating other patients and teaching time.Please see MDM section and the rest of the note for further information on patient assessment and treatment.) Condition: Stable Referrals: MARII SUNG Jr., MD (PCP) I have reviewed the case, and I agree with, Diagnosis and Plan I have examined patient, & reviewed all documents, & agreed W/ the Diagnosis, and Plan I performed a substantive portion of the visit. I have reviewed and personally made and approve the management plan that is documented in the notes by myself with JOE/resident. I acknowledged full responsibility for the patient's management plan.. 59-year-old male found to have an NSTEMI, likely demand ischemia due to sepsis. EKGs stable. Repeat troponin stable. Heart score of six. Meets sepsis criteria. Received IV fluids and IV antibiotics. Sepsis focused re-evaluation after the fluids patient was stable perfusion. Admitted to hospitalist. AGUSTINA LEONARD MD Jul 02, 2024 23:43 MAR STEINER DO Jul 03, 2024 03:52
[2024-07-02 23:54] LABS: BASOPHILS # (AUTO) 0.04 K/uL (0.00-0.20); BASOPHILS % (AUTO) 0.3 % (0.0-5.0); EOSINOPHILS # (AUTO) 0.06 K/uL (0.00-0.70); EOSINOPHILS % (AUTO) 0.5 % (0.0-8.0); HEMATOCRIT 31.6 % (42-54); IMMATURE GRANULOCYTE ABSOLUTE 0.05 K/uL (0-1); LYMPHOCYTES # (AUTO) 1.3 K/uL (1.0-4.8); LYMPHOCYTES % (AUTO) 10.3 % (21.0-51.0); MEAN CORPUSCULAR HEMOGLOBIN 31.5 pg (27.0-33.0); MEAN CORPUSCULAR HGB CONC 35.4 g/dL (32.0-36.0); MONOCYTES # (AUTO) 0.8 K/uL (0.1-1.0); MONOCYTES % (AUTO) 6.3 % (3.0-13.0); NEUTROPHILS % (AUTO) 82.2 % (40.0-77.0); PLATELET COUNT (AUTO) 143 K/uL (130-400); RED BLOOD CELL COUNT(AUTO) 3.55 MIL/uL (4.50-6.20); RED CELL DISTRIBUTION WIDTH 12.4 % (11.0-15.5); WHITE BLOOD COUNT (AUTO) 12.2 K/uL (4.8-10.8)
[2024-07-03 00:05] LABS: CREATININE 1.2 mg/dL (0.5-1.3); POTASSIUM 4.6 mmol/L (3.5-5.1)
[2024-07-03 00:14] LABS: B-TYPE NATRIURETIC PEPTIDE 249 pg/mL (0-100)
[2024-07-03] MEDS ORDERED: IOHEXOL-350 75 ML VIAL IV ONE (00:40)
[2024-07-03] MEDS: ASPIRIN 325MG TAB PO ONE (00:50)
--- NOTE | 2024-07-03 00:50 | NUR ---
PT TAKEN TO CT
--- NOTE | 2024-07-03 01:02 | NUR ---
REPORT GIVEN TO DEE AT THIS TIME
[2024-07-03 01:15] LABS: APPEARANCE,URINE CLEAR (CLEAR); BILIRUBIN,URINE NEGATIVE (NEGATIVE); COLOR,URINE LIGHT-YELLOW (YELLOW); GLUCOSE, URINE (UA) 50 mg/dL (NEGATIVE); KETONES,URINE NEGATIVE (NEGATIVE); LEUKOCYTE ESTERASE ,URINE 25 Leu/uL (NEGATIVE); NITRATE,URINE NEGATIVE (NEGATIVE); OCCULT BLOOD,URINE MODERATE (NEGATIVE); PROTEIN,URINE 300 mg/dL (NEGATIVE); UROBILINOGEN,URINE 0.2 mg/dL (0.2-1.0)
[2024-07-03 01:20] LABS: ADD UA MICROSCOPIC YES
--- NOTE | 2024-07-03 01:20 | HMCIMG ---
CT CHEST PE PROTOCOL WWO CONT HISTORY: Chest pain COMPARISON: None TECHNIQUE: CT angiography of the chest was performed. The study was performed using angiographic technique with maximum intensity projection reconstruction images. Patient was given 75 cc of Omnipaque through intravenous route. FINDINGS: No CT evidence of filling defect is seen to suggest pulmonary embolus. Coronary arterial calcifications are seen. No evidence of parenchymal disease is seen. No CT evidence of pleural effusion or pericardial effusion is seen. The heart is enlarged. No evidence of adrenal mass is seen. Fatty changes of the liver are noted. Degenerative changes of the spine are noted. IMPRESSION: 1. No CT evidence of acute pulmonary embolus is seen. CT was performed with one or more following dose reduction techniques: automated exposure control, adjustment of the mA and kv according to patient's size, or use of a iterative reconstruction technique.
[2024-07-03 01:22] LABS: AMPHET/METH SCREEN,URINE NEGATIVE (NEGATIVE); BARBITURATE SCREEN, URINE NEGATIVE (NEGATIVE); BENZODIAZEPINES SCREEN,URINE NEGATIVE (NEGATIVE); CANNABINOID SCREEN,URINE NEGATIVE (NEGATIVE); COCAINE SCREEN,URINE NEGATIVE (NEGATIVE); OPIATE SCREEN,URINE NEGATIVE (NEGATIVE); PHENCYCLIDINE SCREEN,URINE NEGATIVE (NEGATIVE)
[2024-07-03 01:23] LABS: BACTERIA,URINE FEW /HPF (None Seen); MUCUS,URINE RARE LPF (None Seen); SQUAMOUS EPITHELIAL CELL,UR RARE /HPF (0-2)
[2024-07-03] MEDS: ZOSYN 3.375GM +NS 50ML IV SCH (01:37)
[2024-07-03] MEDS: 0.9%NACL 1000ML 2,000 ML IV ONE (01:37)
[2024-07-03] MEDS: acetaMINOPHEN 500 MG TABLET PO ONE (01:38)
--- NOTE | 2024-07-03 02:43 | HP ---
History of Present Illness Reason for Visit: chest pain Referring MD: Dr. Castanon History of Present Illness Mr. Patrick is a 59-year-old male that was seen and examined today on 07/03/2024. Patient is a good historian of personal health Patient states that he came to the emergency department with a chief complaint of chest pain. Onset was 07/02/2024 at 4:30 p.m.. Location is to left lower chest along the midclavicular line. Duration is on and off. Character is described as pressure. Symptoms are aggravated with, " walking around the bar. "Patient states he was at a local bar consuming alcohol prior to coming to the emergency department. There was no alleviating factors. Patient reports associated right foot pain. Today in the emergency department WBCs 12.2, left shift neutrophils 82.2%, glucose 184 mg/dL, high sensitivity troponin 183, BNP 249, urinalysis is unremarkable, urine toxicology is unremarkable, alcohol level is 25. Emergency room physician recommended that patient be admitted with a diagnosis of chest pain. Additionally patient presented with a heart rate of 112, combined with patient's WBCs of 12.2 and identified suspected source of infection being right lower extremity wounds patient met clinical sepsis criteria. Past Medical History Patient History: Cancer MOTHER (COLON CANCER), , Age: 75 (COLON) FATHER (THROAT), (LUNG) Family history: Asthma SON Family history: Diabetes mellitus MOTHER (COLON CANCER), , Age: 75 Family history: Hypertension MOTHER (COLON CANCER), , Age: 75 No Family History of: Chronic obstructive lung disease Family history: Alzheimer's disease Family history: Cardiovascular disease Parkinson's disease Stroke Sudden ADDITIONAL PAST MEDICAL HISTORY: [ Cellulitis of the right foot Necrotizing infection of the right foot Osteomyelitis of second and fourth toe of the right foot Hypertension Hyperlipidemia Type 2 diabetes mellitus Right internal carotid artery stenosis History of CVA in April 2022 Grade 1 diastolic heart failure by 2D echo on 05/26/2023 with EF 40-45% Peripheral artery disease right lower extremity by ultrasound on 04/14/2024] Surgical history: [ Amputation of left great toe in 04/2022 Open transmetatarsal amputation of right foot February 13, 2023 Chopart's amputation of the right foot Prior history of colostomy with reversal in about 5 to 6 years ago, history of abdominal hernia surgery, Partial left great toe amputation with repair and anastomosis of extensor hallucis longus to the flexor hallucis longus tendons by Dr. 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 Patient drinks 12 beers daily that are 12 oz each. Patient denies drug use. Patient lives with his mom Richelle Leone. Patient has good access to health care through his insurance. Patient denies difficulty pain is bills. 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 Patient denies difficulty pain is bills. Review of Systems General: No Fever, No Chills, No Night Sweats, No Fatigue, No Malaise, No Appetite, No Other HEENT: No Head Aches, No Visual Changes, No Eye Pain, No Ear Pain, No Dysphasia, No Sinus Congestion, No Post Nasal Drip, No Sore Throat, No Other Pulmonary: No Dyspnea, No Cough, No Pleuritic Chest Pain, No Other Cardiovascular: Chest Pain; No: Palpitations, Orthopnea, Paroxysmal Noc. Dyspnea, Edema, Lt Headedness, Other Gastrointestinal: No: Nausea, Vomiting, Abdominal Pain, Diarrhea, Constipation, Melena, Hematochezia, Other Genitourinary: No Dysuria, No Frequency, No Incontinence, No Hematuria, No Retention, No Other Musculoskeletal: foot pain; No: other, neck pain, shoulder pain, arm pain, back pain, hand pain, leg pain Skin: No Urticaria, No Rash, No Other Neurological: No: Weakness, Numbness, Incoordination, Change in speech, Confusion, Seizures, Other Allergies: Coded Allergies: No Known Allergies (Verified Allergy, Severe, 02/17/15) Scheduled Aspirin (Aspirin 81 Mg Ectab), 81 MG PO DAILY Atorvastatin Calcium (Lipitor), 40 MG PO HS Glimepiride (Glimepiride), 1 TAB PO DAILY, (Reported) Insulin Degludec (Tresiba Flextouch U-100), 15 UNITS SQ ACBKFST, (Reported) Metaxalone (Metaxalone), 1 TAB PO DAILY, (Reported) Metformin HCl (Metformin HCl), 1 TAB PO BID, (Reported) Metformin HCl (Metformin HCl), 1,000 MG PO BID Metoprolol Tartrate (Lopressor), 12.5 MG PO BID Omeprazole (Omeprazole), 1 CAP PO DAILY, (Reported) Sulfamethoxazole/Trimethoprim (Sulfamethoxazole-Tmp Ss Tablet), 2 TAB PO BID, (Reported) Exam Vital Signs Vital Signs Date Time Temp Pulse Resp B/P (MAP) Pulse Ox O2 Delivery O2 Flow Rate FiO2 07/03/24 01:43 99.1 136 18 131/76 97 Room Air* 0 21 General Appearance: Alert, Oriented X3, Cooperative, mild distress HEENT: Atraumatic, EOMI Respiratory: Clear to auscultation, Normal air movement, NL respiratory effort Cardiovascular: Regular rate, Regular rhythm, Normal S2 Abdominal: Normal bowel sounds, Soft, No tenderness Extremities: No edema Skin: Other (Right ankle wound, right foot wound) Neuro: Normal speech, Strength at 5/5 X4 ext, Sensation intact, Cranial nerves 3-12 NL Psych/Mental Status: Mental status NL, Mood NL, Thoughts/Content NL Assessment/Plan ASSESSMENT: [ Chest pain, POA Right foot wound, POA Right ankle wound, POA Sepsis, POA Alcohol dependence, POA Leukocytosis, POA Uncontrolled Diabetes mellitius type2, POA Hypertension Hyperlipidemia Type 2 diabetes mellitus Right internal carotid artery stenosis History of CVA in April 2022 Grade 1 diastolic heart failure by 2D echo on 05/26/2023 with EF 40-45% Peripheral artery disease right lower extremity by ultrasound on 04/14/2024]] PLAN: [ Admit patient to pccu as inpatient status. Place patient on telemetry monitoring. Chest pain with elevated troponin: Administer aspirin 325 mg by mouth times 1 dose Continue aspirin 81 mg by mouth once daily Nitropaste 0.5 inches anterior chest wall every 8 hours Trend troponin every 6 hours x 3 sets Supplemental oxygen to maintain O2 saturation greater than 92% Consult cardiology service, Dr. Muhammad Start heparin drip per hospital protocol. Right foot wound, right ankle wound: Obtain aerobic and anaerobic wound cultures. For now wet-to-dry dressing. Consult Wound Care Service for evaluation and recommendations. Sepsis, leukocytosis: Fluid resuscitation with lactated Ringer's 30 mL/kg. Empiric antibiotic therapy with Zosyn. Reviewed patient's lactic acid, unremarkable. Check procalcitonin, follow up with the results. Check blood culture, follow up with the results. Reviewed patient's urinalysis which is mildly suggestive of UTI very few white blood cell count this could be a contaminated sample although squamous epithelial cells are rare. Differential diagnosis of UTI we will be covered by aforementioned antimicrobial therapy, Zosyn. Alcohol dependence: Counseled patient on alcohol cessation. Librium 25 mg by mouth every 8 hours As needed Ativan for alcohol withdrawal 1 mg every 4 hours Use CIWA-AR assessment tool Document EtOH withdrawal score Assess the need for seizure and aspiration precautions Diabetes mellitus type 2: Check hemoglobin A1c in a.m. Glucometer checks a.c. and HS 1800 ADA diet Humulin R sliding scale Hypertension, hyperlipidemia, right internal carotid artery stenosis, grade 1 diastolic heart failure, peripheral artery disease: Consider resuming home medications once they are reconciled. Intake and output every shift. Weight patient daily. Consider diuresis if patient develops any pedal edema, jugular vein distention or shortness and breath. Hydralazine 10 mg IV every 4 hours for systolic blood pressure greater than 160 mmHg Consider resuming home medications once they are reconciled. GI prophylaxis, famotidine DVT prophylaxis, patient will be on heparin drip as mentioned above ADVANCED CARE PLANNING 1. Which of the following were discussed? Hospice Care - Yes Therapeutic options - Yes Advance Directives - Yes- patient states he does not have any advance directives in place at this time, however his mother Richelle can make decisions for him if he becomes unable. Other discussions - patient wishes to remain a full code at this time 2. Discussed with who? Patient 3. Voluntary nature of this service was explained to the patient? Yes 4. Amount of time spent - __ 16 minutes 5. Reviewed by Physician? (if this service was performed by NPP) Yes This document was generated in part using voice recognition software, occasional wrong word or sound alike substitutions may have occurred due to the inherent limitations of voice recognition software. Read the chart carefully and recognize using context, where the substitutions have occurred. Although every effort was made to edit the content, excavating machine operator and typing errors may occur ATTESTATION BY PHYSICIAN I have seen and examined the patient. I reviewed the documentation, medical decision making, and treatment plan as noted by the mid-level provider above. I agree with the findings and plan of care. CLEMENTINE BRADEN BRANCH OPERATIONS SPECIALIST Jul 03, 2024 02:43
[2024-07-03] MEDS ORDERED: PHARMACY COMMUNICATION MISC PRN (03:00)
[2024-07-03] MEDS ORDERED: hydrALAZine 20MG/ML VIAL IV PRN (03:00)
[2024-07-03] MEDS ORDERED: LORazepam 2 MG/ML 1 ML VIAL IVP PRN (03:00)
[2024-07-03] MEDS ORDERED: ondanSETRON 4MG INJ IV PRN (03:00)
[2024-07-03] MEDS ORDERED: 0.9%NACL 50ML IV SCH (03:00)
[2024-07-03] MEDS: LACTATED RINGERS IV ONE (03:06)
[2024-07-03] MEDS: NITROGLYCERIN 1GM OINT 1 INCH/1GM TD SCH (03:18)
[2024-07-03] MEDS: chlordiazePOXIDE HCL 25 MG CAP PO SCH (03:18)
[2024-07-03] MEDS ORDERED: morPHINE 2 MG SYG IVP PRN (03:30)
[2024-07-03 03:38] LABS: INR 0.99 (0.85-1.15); PROTHROMBIN TIME 11.1 SEC (9.6-11.6)
[2024-07-03 03:39] LABS: PARTIAL THROMBOPLASTIN TIME 33.2 SEC (26.3-35.5)
[2024-07-03] MEDS: HEParin 5,000 UNIT VIAL IV PRN (03:41)
[2024-07-03] MEDS: HEParin 25,000 UNITS/250ML D5W 250 ML IV SCH (03:44)
--- NOTE | 2024-07-03 04:38 | NUR ---
WOUNDS TO R FOOT STUMP AND POSTERIOR LOWER LEG SWABBED FOR CULTURES. WOUNDS DRESSED WITH WET TO DRY DRESSINGS. PATIENT TOLERATED WELL
[2024-07-03] MEDS ORDERED: ATOR40TA71 PO (04:47)
[2024-07-03] MEDS ORDERED: CLOP75TA32 PO (04:47)
[2024-07-03] MEDS ORDERED: METO25TA6 PO (04:47)
[2024-07-03] MEDS ORDERED: INSU100V51 SQ (04:47)
[2024-07-03] MEDS ORDERED: TRAMADOL PO (04:47)
[2024-07-03] MEDS ORDERED: INSU100C14 SQ (04:47)
[2024-07-03] MEDS ORDERED: PREG75CA76 PO (04:47)
[2024-07-03 06:07] LABS: BASOPHILS # (AUTO) 0.03 K/uL (0.00-0.20); BASOPHILS % (AUTO) 0.3 % (0.0-5.0); EOSINOPHILS # (AUTO) 0.09 K/uL (0.00-0.70); HEMATOCRIT 28.6 % (42-54); IMMATURE GRANULOCYTE ABSOLUTE 0.03 K/uL (0-1); LYMPHOCYTES # (AUTO) 1.3 K/uL (1.0-4.8); LYMPHOCYTES % (AUTO) 14.8 % (21.0-51.0); MEAN CORPUSCULAR HEMOGLOBIN 32.1 pg (27.0-33.0); MEAN CORPUSCULAR HGB CONC 35.7 g/dL (32.0-36.0); MEAN CORPUSCULAR VOLUME 89.9 fL (79-99); MONOCYTES # (AUTO) 0.6 K/uL (0.1-1.0); MONOCYTES % (AUTO) 6.9 % (3.0-13.0); NEUTROPHILS # (AUTO) 6.9 K/uL (1.8-7.7); NEUTROPHILS % (AUTO) 76.7 % (40.0-77.0); PLATELET COUNT (AUTO) 133 K/uL (130-400); RED BLOOD CELL COUNT(AUTO) 3.18 MIL/uL (4.50-6.20); RED CELL DISTRIBUTION WIDTH 12.5 % (11.0-15.5)
[2024-07-03 06:16] LABS: MAGNESIUM 1.8 mg/dL (1.80-2.40); PHOSPHORUS 2.4 mg/dL (2.5-4.9); POTASSIUM 4.3 mmol/L (3.5-5.1)
--- NOTE | 2024-07-03 06:38 | EKG ---
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
--- NOTE | 2024-07-03 07:02 | NUR ---
REPORT TAKEN FROM
--- NOTE | 2024-07-03 08:00 | NUR ---
PATIENT SOILED HIMSELF.BEDSHEETS AND COTHES CHANGED,DIAPER PUT ON PER HIS REQUEST.
--- NOTE | 2024-07-03 08:52 | HMCIMG ---
CHEST 1VW REASON: Chest pain COMPARISON: 04/21/2024 FINDINGS: Single view of the chest was obtained. Lungs are clear. Heart size is normal. There is no pulmonary vascular congestion. Mediastinum and bony thorax appear unremarkable. IMPRESSION: 1. Normal single view chest x-ray.
[2024-07-03] MEDS: ZOSYN 3.375GM +NS 50ML IVPB SCH (09:23)
[2024-07-03] MEDS: FAMOTIDINE 20MG TAB PO SCH (09:23)
[2024-07-03 09:57] LABS: INR 1.06 (0.85-1.15); PROTHROMBIN TIME 11.8 SEC (9.6-11.6)
--- NOTE | 2024-07-03 10:06 | NUR ---
TROP-893 ONEYDA JIMENEZ MADE AWARE
[2024-07-03 10:27] LABS: PARTIAL THROMBOPLASTIN TIME > 139.0 SEC (26.3-35.5)
--- NOTE | 2024-07-03 10:40 | NUR ---
HEPARIN ON HOLD PER PROTOCOL.
--- NOTE | 2024-07-03 10:46 | NUR ---
DCP Patient states released from [facility] "a few days ago" after a three or four week stay for IV antibiotics and wound care status post right foot toe amputation; and, did not want to return to his apartment. States "I don't feel comfortable. I don't feel appreciated." Denies physical abuse. States his partner will not assist him with transportation or care. States he has a sister, Carla Patrick [phone], who will not assist him in living quarters, transportation or care. Prior to [facility] stay, he lived with partner, Richelle Nichols [phone], and 25yo daughter, Shirley Patrick. Currently, staying in a motel but "I am running out of money." States Dr. Reynaldo Godfrey instructed that he not put pressure on surgical foot. Uses a wheelchair and denies other medical devices. States able to perform ADL's on his own. He works for [employer] but currently unable to work. Denies home health services, home providers, or dialysis. PCP - Aldo Grossman Jr., MD Pharmacy - [facility]. Upon discharge, Juan J Lund, Friend [phone] would be able to help with transportation but not a home. Notified LIVAN LEW. Addendum: 07/03/24 at 1104 by JANN ALEXANDRA RN CM Amended: Links added.
--- NOTE | 2024-07-03 11:29 | NUR ---
cont. CORTÉS Gave patient the Community Resource List. Addendum: 07/03/24 at 1130 by JANN ALEXANDRA RN CM Amended: Links added.
[2024-07-03] MEDS ORDERED: VANCOMYCIN HCL 1.25 GM/250 ML BAG IV SCH (11:30)
--- NOTE | 2024-07-03 11:42 | NUR ---
DR ANA SHAFFER,AWAITING RESPONSE.
[2024-07-03 11:55] LABS: HEMOGLOBIN A1C 6.8 % (4.0-6.0)
[2024-07-03] MEDS ORDERED: PoTASSium chloRIDE 20MEQ/100ML 100 ML IV PRN (12:00)
--- NOTE | 2024-07-03 12:14 | NUR ---
WOUND CARE AT BEDSIDE.
--- NOTE | 2024-07-03 12:42 | NUR ---
[facility] Consult: Patient assessed by wound healing team. See wound assessment. Assessment and recommendations provided to primary nurse. Education provided. Wound care done. Addendum: 07/03/24 at 1304 by SARINA ALVARADO RN RN/ Amended: Links added.
--- NOTE | 2024-07-03 13:49 | NUR ---
PATIENT HELPED INTO A CHAIR WITH 2 PERSONS.
--- NOTE | 2024-07-03 13:51 | PN ---
[facility] PROGRESS NOTE Date of Service: Jul 03, 2024 Time of Service: 13:49 SUBJECTIVE: Mr. Patrick is a 59-year-old male that was seen and examined today on 07/03/2024. Patient is a good historian of personal health Patient states that he came to the emergency department with a chief complaint of chest pain. Onset was 07/02/2024 at 4:30 p.m.. Location is to left lower chest along the midclavicular line. Duration is on and off. Character is described as pressure. Symptoms are aggravated with, " walking around the bar. "Patient states he was at a local bar consuming alcohol prior to coming to the emergency department. There was no alleviating factors. Patient reports associated right foot pain. Today in the emergency department WBCs 12.2, left shift neutrophils 82.2%, glucose 184 mg/dL, high sensitivity troponin 183, BNP 249, urinalysis is unremarkable, urine toxicology is unremarkable, alcohol level is 25. Emergency room physician recommended that patient be admitted with a diagnosis of chest pain. Additionally patient presented with a heart rate of 112, combined with patient's WBCs of 12.2 and identified suspected source of infection being right lower extremity wounds patient met clinical sepsis criteria. 07/03/2024 The patient was examined at bedside. The patient states resolution of his chest pain completely. There is wound in his right lower extremity. His temperature is fluctuating and has slight fever. The patient appears very weak fatigued and tired. He was on prolonged courses of antibiotics for a longer duration. He is in mild distress due to pain from his foot. 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 He was recently hospitalized for prolonged period for his right lower extremity wound infection. Discuss the goal of care with the patient. Evaluating and ruling out all causes of his chest pain. REVIEW OF SYSTEMS CONSTITUTIONAL: Denies fevers, chills, or night sweats. No unintentional weight loss reported. NEUROLOGICAL: Denies headache, amaurosis fugax, motor weakness, sensory deficit, vertigo/spinning sensation, gait abnormalities, or tremors. ENT: No hearing loss, otalgia, otorrhea, rhinitis, rhinorrhea, hoarseness, or sore throat. CARDIOVASCULAR: Denies any exertional angina, dyspnea on exertion, orthopnea, paroxysmal nocturnal dyspnea, palpitations, life-threatening arrhythmias, claudication. PULMONARY: Denies any shortness of breath, cough, phlegm/sputum, hemoptysis, pleuritic chest pain. SLEEP: Denies morning headaches, daytime somnolence or napping. Denies difficulty falling asleep, staying asleep, waking from sleep. Denies knowledge of snoring. GASTROINTESTINAL: Denies any type of dysphagia to either liquids or solids. Denies nausea, vomiting, pyrosis, early satiety, abdominal pain, diarrhea, constipation, or changes in stool consistency or caliber. Denies coffee-ground emesis, hematemesis, hematochezia, or melanotic stools. GENITOURINARY: Denies frequency, urgency, nocturia, hematuria or incontinence (Storage/Irritative symptoms.) Low urinary stream, straining to void, urinary intermittency or hesitancy, splitting of the voiding stream, terminal dribbling. ENDOCRINOLOGIC: Denies polyuria, polydipsia, polyphagia or heat/cold intolerances. HEMATOLOGIC: Denies thrombophilia/previous clots, or coagulopathy/bleeding disorders. ONCOLOGIC: Denies personal history of malignancy. DERMATOLOGIC: Denies rashes or pruritus. PSYCHIATRIC: Denies any suicidal or homicidal ideation. Denies hallucinations. PHYSICAL EXAM GENERAL APPEARANCE: The patient is awake, alert, and oriented, in no acute cardiopulmonary distress. NEUROLOGICAL: Cranial nerves II-XII grossly intact. Motor is 5/5 in bilateral upper and lower extremities proximal to distal. No sensory deficits. HEENT: Face is symmetric. Pupils are equal and reactive. Extraocular movements are intact. NECK: Supple. No JVD. No thyromegaly. No submental, submandibular, pre- /postauricular, occipital or supraclavicular lymphadenopathy. CHEST: Normal chest expansion. No Telemetry. LUNGS: Absence of any rales, rhonchi or any wheezing. CARDIOVASCULAR: Regular. S1 and S2 normal. No appreciable rubs, murmurs or gallops. ABDOMEN: Soft, nontender, and nondistended. There is no rebound, voluntary guarding, or rigidity. : Deferred. No Abrams. EXTREMITIES: Non-edematous and not cyanotic. No clubbing. Good capillary refill. SKIN: No skin breakdown. Vital Signs (last 8hr) Date Time Temp Pulse Resp B/P (MAP) Pulse Ox O2 Delivery O2 Flow Rate FiO2 2/21/25 13:47 97.0 114 18 126/80 98 Room Air* 0 21 07/03/24 11:25 97.0 98 18 126/80 98 Room Air* 0 21 07/03/24 07:48 97.7 121 18 106/63 96 Room Air* 0 21 07/03/24 06:05 120 17 122/74 96 Room Air* 0 21 LABS: Laboratory: Test 07/03/24 09:40 07/03/24 05:50 07/03/24 01:33 07/03/24 00:50 Range/Units Prothrombin Time 11.8 H 9.6-11.6 SEC Prothromb Time International Ratio 1.06 0.85-1.15 Activated Partial Thromboplast Time > 139.0 #*H 26.3-35.5 SEC Troponin I High Sensitivity 893 *H 4-75 ng/L White Blood Count 9.0 # 4.8-10.8 K/uL Red Blood Count 3.18 L 4.50-6.20 MIL/uL Hemoglobin 10.2 L 14.0-18.0 g/dL Hematocrit 28.6 L 42-54 % Mean Corpuscular Volume 89.9 79-99 fL Mean Corpuscular Hemoglobin 32.1 27.0-33.0 pg Mean Corpuscular Hemoglobin Concent 35.7 32.0-36.0 g/dL Red Cell Distribution Width 12.5 11.0-15.5 % Platelet Count 133 130-400 K/uL Mean Platelet Volume 10.0 7.5-10.5 fL Immature Granulocyte % (Auto) 0.3 0-1 % Neutrophils (%) (Auto) 76.7 40.0-77.0 % Lymphocytes (%) (Auto) 14.8 L 21.0-51.0 % Monocytes (%) (Auto) 6.9 3.0-13.0 % Eosinophils (%) (Auto) 1.0 0.0-8.0 % Basophils (%) (Auto) 0.3 0.0-5.0 % Neutrophils # (Auto) 6.9 1.8-7.7 K/uL Lymphocytes # (Auto) 1.3 1.0-4.8 K/uL Monocytes # (Auto) 0.6 0.1-1.0 K/uL Eosinophils # (Auto) 0.09 0.00-0.70 K/uL Basophils # (Auto) 0.03 0.00-0.20 K/uL Absolute Immature Granulocyte (auto 0.03 0-1 K/uL Nucleated Red Blood Cells 0.0 0.0-0.19 % Sodium Level 133 L 136-145 mmol/L Potassium Level 4.3 3.5-5.1 mmol/L Chloride Level 102 101-111 mmol/L Carbon Dioxide Level 25 21-32 mmol/L Blood Urea Nitrogen 21 H 7-18 mg/dL Creatinine 1.0 0.5-1.3 mg/dL Glomerular Filtration Rate Calc 88 >90 mL/min Random Glucose 127 H 70-105 mg/dL Hemoglobin A1c 6.8 H 4.0-6.0 % Estimated Average Glucose (eAG) 148 H 70-126 mg/dL Total Calcium 7.7 L 8.5-10.1 mg/dL Phosphorus Level 2.4 L 2.5-4.9 mg/dL Magnesium Level 1.80 1.80-2.40 mg/dL Lactic Acid Level 1.5 0.8-2.5 mmol/L Procalcitonin 0.18 0.05-0.5 ng/mL Urine Color LIGHT-YELLOW YELLOW Urine Appearance CLEAR CLEAR Urine pH 6.0 5.0-8.0 Urine Specific [place] 1.012 1.001-1.031 Urine Protein 300 H NEGATIVE mg/dL Urine Glucose (UA) 50 H NEGATIVE mg/dL Urine Ketones NEGATIVE NEGATIVE mg/dL Urine Occult Blood MODERATE H NEGATIVE Urine Nitrate NEGATIVE NEGATIVE Urine Bilirubin NEGATIVE NEGATIVE mg/dL Urine Urobilinogen 0.2 0.2-1.0 mg/dL Urine Leukocyte Esterase 25 H NEGATIVE Zulema/uL Urine RBC 2-5 H 0-1 /HPF Urine WBC 2-5 H 0-1 /HPF Urine Squamous Epithelial Cells RARE 0-2 /HPF Urine Bacteria FEW None Seen /HPF Urine Opiates Screen NEGATIVE NEGATIVE Urine Barbiturates Screen NEGATIVE NEGATIVE Urine Phencyclidine Screen NEGATIVE NEGATIVE Urine Amphetamines Screen NEGATIVE NEGATIVE Urine Benzodiazepines Screen NEGATIVE NEGATIVE Urine Cocaine Screen NEGATIVE NEGATIVE Urine Marijuana (THC) Screen NEGATIVE NEGATIVE Test 07/02/24 23:47 Range/Units B-Type Natriuretic Peptide 249 H 0-100 pg/mL Serum Alcohol 25 H 0-10 mg/dL Current Medications Medications (Trade) Dose Ordered Sig/Jl Route PRN Reason Start Time Stop Time Status Last Admin Dose Admin Acetaminophen (TYLenol 325MG TAB) 650 mg Q6H PRN PO TEMPERATURE GREATER THAN 101.5 07/03/24 03:00 08/02/24 02:59 Chlordiazepoxide HCl (LIBrium 25 MG CAP) 25 mg Q8H PO 07/03/24 03:00 07/10/24 02:59 07/03/24 12:02 25 MG Famotidine (Pepcid 20mg Tab) 20 mg DAILY PO 07/03/24 09:00 08/02/24 08:59 07/03/24 09:23 20 MG Heparin Sodium (Porcine) (HEParin 5,000 UNIT VIAL) *calculation based on ACTUAL B... AD PRN IV HEPARIN PROTOCOL 07/03/24 04:00 07/03/24 03:51 DC 07/03/24 03:41 6,000 UNIT Heparin Sodium/ Dextrose 250 ml @ 0 mls/hr Q6H IV 07/03/24 04:00 08/02/24 03:59 07/03/24 03:44 13.94 MLS/HR Hydralazine HCl (APRESOLine 20MG INJ) 10 mg Q6H PRN IV For:SBP above 160;DBP above 90 07/03/24 03:00 08/02/24 02:59 Leptospermum Honey (Medihoney) 1 APPL DAILY TP 07/03/24 14:00 08/02/24 13:59 Lorazepam (AtiVAN) 1 mg Q4H PRN IVP ALCOHOL WITHDRAWAL PROTOCOL 07/03/24 03:00 07/10/24 02:59 Magnesium Sulfate 50 ml @ 0 mls/hr PROTOCOL PRN IV Electrolyte abnormality 07/03/24 12:00 08/02/24 11:59 Morphine Sulfate (morPHINE 2MG SYG) 2 mg Q4H PRN IVP SEVERE PAIN (7-10) 07/03/24 03:30 07/10/24 03:29 Nitroglycerin (Nitroglycerin 1gm Oint) 0.5 inch Q8H TD 07/03/24 03:00 08/02/24 02:59 07/03/24 12:02 0.5 INCH Ondansetron HCl (zoFRAN 4MG INJ) 4 mg Q6H PRN IV NAUSEA/VOMITING 07/03/24 03:00 08/02/24 02:59 Pharmacy Profile Note (Pharmacy Communication) 1 each PROTOCOL PRN MISC ETOH Withdrawal Score changes 07/03/24 03:00 07/10/24 02:59 Piperacillin Sod/ Tazobactam Sod (Zosyn 3.375gm+NS 50ml) 3.375 gm Q8H IV 07/03/24 01:30 07/03/24 03:03 DC 07/03/24 01:37 3.375 GM Piperacillin Sod/ Tazobactam Sod (Zosyn 3.375gm+NS 50ml) 3.375 gm Q8H IVPB 07/03/24 09:30 07/13/24 09:29 07/03/24 09:23 3.375 GM Potassium Chloride 100 ml @ 50 mls/hr AD PRN IV POTASSIUM PROTOCOL 07/03/24 12:00 08/02/24 11:59 Sodium Chloride (NS 50ml) 50 ml AD IV 07/03/24 03:00 07/03/24 11:34 DC Vancomycin HCl (Vancomycin 1.25 Gm/250 ml Bag) 1.25 gm ONCE IV 07/03/24 11:30 07/03/24 11:33 DC DIAGNOSTICS / RADIOLOGY: [ ] PATIENT: SAVANA PATRICK MR#: [id number] : 1965 SEX: M AGE: 59 LOCATION: [facility] ORDER STATUS: REG ER REPORT#: [id number] SERVICE REASON: Chest pain, Tachycardia ORDERING PHYSICIAN: AGUSTINA LEONARD MD PROCEDURE: CHES PE - CT CHEST PE PROTOCOL WWO CONT CT CHEST PE PROTOCOL WWO CONT HISTORY: Chest pain COMPARISON: None TECHNIQUE: CT angiography of the chest was performed. The study was performed using angiographic technique with maximum intensity projection reconstruction images. Patient was given 75 cc of Omnipaque through intravenous route. FINDINGS: No CT evidence of filling defect is seen to suggest pulmonary embolus. Coronary arterial calcifications are seen. No evidence of parenchymal disease is seen. No CT evidence of pleural effusion or pericardial effusion is seen. The heart is enlarged. No evidence of adrenal mass is seen. Fatty changes of the liver are noted. Degenerative changes of the spine are noted. IMPRESSION: 1. No CT evidence of acute pulmonary embolus is seen. CT was performed with one or more following dose reduction techniques: automated exposure control, adjustment of the mA and kv according to patient's size, or use of a iterative reconstruction technique. PATIENT: SAVANA PATRICK MR#: [id number] : 1965 SEX: M AGE: 59 LOCATION: [facility] ORDER 2340 STATUS: ADM IN REPORT#: [id number] SERVICE [id number] REASON: Chest pain ORDERING PHYSICIAN: AGUSTINA LEONARD MD PROCEDURE: CXR1VW - CHEST 1VW CHEST 1VW REASON: Chest pain COMPARISON: 04/21/2024 FINDINGS: Single view of the chest was obtained. Lungs are clear. Heart size is normal. There is no pulmonary vascular congestion. Mediastinum and bony thorax appear unremarkable. IMPRESSION: 1. Normal single view chest x-ray. ASSESSMENT: ASSESSMENT: [ Chest pain, POA Non-STEMI, currently on heparin drip, POA Right foot wound, POA Right ankle wound, POA Sepsis, POA Alcohol dependence, POA Leukocytosis, POA Uncontrolled Diabetes mellitius type2, POA Hypertension Hyperlipidemia Type 2 diabetes mellitus Right internal carotid artery stenosis History of CVA in April 2022 Grade 1 diastolic heart failure by 2D echo on 05/26/2023 with EF 40-45% Peripheral artery disease right lower extremity by ultrasound on 04/14/2024]] PLAN: Admit patient to pccu as inpatient status. Place patient on telemetry monitoring. Reconciled his home medication list. Chest pain with elevated troponin: Administer aspirin 325 mg by mouth times 1 dose Continue aspirin 81 mg by p.o. daily Atorvastatin 40 mg daily. Nitropaste 0.5 inches anterior chest wall every 8 hours Trend troponin every 6 hours x 3 sets Supplemental oxygen to maintain O2 saturation greater than 92% Consult cardiology service, Dr. Muhammad Start heparin drip per hospital protocol. Right foot wound, right ankle wound: Obtain aerobic and anaerobic wound cultures. For now wet-to-dry dressing. Consult Wound Care Service for evaluation and recommendations. Continue Zosyn IV per ID recommendations. Sepsis, leukocytosis: Fluid resuscitation with lactated Ringer's 30 mL/kg. Empiric antibiotic therapy with Zosyn. Reviewed patient's lactic acid, unremarkable. Check procalcitonin, follow up with the results. Check blood culture, follow up with the results. Reviewed patient's urinalysis which is mildly suggestive of UTI very few white blood cell count this could be a contaminated sample although squamous epithelial cells are rare. Differential diagnosis of UTI we will be covered by aforementioned antimicrobial therapy, Zosyn. Alcohol dependence: Counseled patient on alcohol cessation. Librium 25 mg by mouth every 8 hours As needed Ativan for alcohol withdrawal 1 mg every 4 hours Use CIWA-AR assessment tool Document EtOH withdrawal score Assess the need for seizure and aspiration precautions Diabetes mellitus type 2: Check hemoglobin A1c in a.m. Glucometer checks a.c. and HS 1800 ADA diet Humulin R sliding scale Hypertension, hyperlipidemia, right internal carotid artery stenosis, grade 1 diastolic heart failure, peripheral artery disease: Consider resuming home medications once they are reconciled. Intake and output every shift. Weight patient daily. Consider diuresis if patient develops any pedal edema, jugular vein distention or shortness and breath. Hydralazine 10 mg IV every 4 hours for systolic blood pressure greater than 160 mmHg Consider resuming home medications once they are reconciled. GI prophylaxis, famotidine DVT prophylaxis, patient will be on heparin drip as mentioned above ATTESTATION BY PHYSICIAN I have seen and examined the patient. I reviewed the documentation, medical decision making, and treatment plan as noted by the resident above. I agree with the findings and plan of care. Mejia Martinez MD, RAGHAVA R MD Jul 03, 2024 13:50
[2024-07-03] MEDS: HONEY 1 APPL/ML TUBE TP SCH (14:00)
[2024-07-03] MEDS ORDERED: TRAMADOL 50 MG PO PRN (14:00)
--- NOTE | 2024-07-03 15:13 | NUR ---
DR PEREZ PAGED AGAIN,AWAITING RESPONSE.
[2024-07-03 16:06] LABS: BASOPHILS # (AUTO) 0.04 K/uL (0.00-0.20); BASOPHILS % (AUTO) 0.5 % (0.0-5.0); EOSINOPHILS % (AUTO) 1.2 % (0.0-8.0); HEMATOCRIT 30.8 % (42-54); IMMATURE GRANULOCYTE ABSOLUTE 0.03 K/uL (0-1); LYMPHOCYTES # (AUTO) 1.1 K/uL (1.0-4.8); LYMPHOCYTES % (AUTO) 13.6 % (21.0-51.0); MEAN CORPUSCULAR HEMOGLOBIN 31.6 pg (27.0-33.0); MEAN CORPUSCULAR HGB CONC 34.7 g/dL (32.0-36.0); MEAN CORPUSCULAR VOLUME 90.9 fL (79-99); MONOCYTES # (AUTO) 0.6 K/uL (0.1-1.0); MONOCYTES % (AUTO) 7.7 % (3.0-13.0); NEUTROPHILS # (AUTO) 6.2 K/uL (1.8-7.7); NEUTROPHILS % (AUTO) 76.6 % (40.0-77.0); PLATELET COUNT (AUTO) 145 K/uL (130-400); RED BLOOD CELL COUNT(AUTO) 3.39 MIL/uL (4.50-6.20); RED CELL DISTRIBUTION WIDTH 12.7 % (11.0-15.5); WHITE BLOOD COUNT (AUTO) 8.1 K/uL (4.8-10.8)
[2024-07-03 16:22] LABS: INR 1.09 (0.85-1.15); PROTHROMBIN TIME 11.5 SEC (9.6-11.6)
[2024-07-03 16:30] LABS: ALBUMIN 2.5 g/dL (3.5-5.0); BILIRUBIN,TOTAL 0.5 mg/dL (0.2-1.0); CREATININE 0.9 mg/dL (0.5-1.3)
--- NOTE | 2024-07-03 16:35 | NUR ---
TROP- [id number] ONEYDA JIMENEZ MADE AWARE
[2024-07-03 16:41] LABS: PARTIAL THROMBOPLASTIN TIME 98.2 SEC (26.3-35.5)
[2024-07-03 18:07] LABS: ERYTHROCYTE SEDIMENTATION RATE 60 MM/HR (0-20)
[2024-07-03] MEDS: atorVAStatin 40 MG TABLET PO SCH (21:17)
[2024-07-03] MEDS: pregABALin 75 MG CAPSULE PO SCH (21:17)
[2024-07-03] MEDS: metoPROLOL tartRATE 25 MG TAB PO SCH (21:17)
[2024-07-03] MEDS: INSULIN GLARgine 100 UNITS/ML 10 ML VIAL SQ SCH (21:24)
[2024-07-03 22:39] LABS: INR 1.07 (0.85-1.15); PROTHROMBIN TIME 11.3 SEC (9.6-11.6)
[2024-07-03 22:40] LABS: PARTIAL THROMBOPLASTIN TIME 62.7 SEC (26.3-35.5)
[2024-07-03 23:25] VITALS: BP 125/74; PULSE 97; RESP 20; TEMP 98.3
[2024-07-04 04:00] VITALS: BP 140/90; PULSE 115; RESP 20; TEMP 98.8
[2024-07-04 04:14] LABS: BASOPHILS # (AUTO) 0.03 K/uL (0.00-0.20); BASOPHILS % (AUTO) 0.6 % (0.0-5.0); EOSINOPHILS # (AUTO) 0.13 K/uL (0.00-0.70); EOSINOPHILS % (AUTO) 2.4 % (0.0-8.0); HEMATOCRIT 27.6 % (42-54); IMMATURE GRANULOCYTE ABSOLUTE 0.01 K/uL (0-1); LYMPHOCYTES # (AUTO) 1.4 K/uL (1.0-4.8); LYMPHOCYTES % (AUTO) 25.3 % (21.0-51.0); MEAN CORPUSCULAR HEMOGLOBIN 31.4 pg (27.0-33.0); MEAN CORPUSCULAR HGB CONC 34.8 g/dL (32.0-36.0); MEAN CORPUSCULAR VOLUME 90.2 fL (79-99); MONOCYTES # (AUTO) 0.5 K/uL (0.1-1.0); NEUTROPHILS # (AUTO) 3.3 K/uL (1.8-7.7); NEUTROPHILS % (AUTO) 61.5 % (40.0-77.0); PLATELET COUNT (AUTO) 131 K/uL (130-400); RED BLOOD CELL COUNT(AUTO) 3.06 MIL/uL (4.50-6.20); RED CELL DISTRIBUTION WIDTH 12.9 % (11.0-15.5); WHITE BLOOD COUNT (AUTO) 5.4 K/uL (4.8-10.8)
[2024-07-04 04:32] LABS: ALBUMIN 2.2 g/dL (3.5-5.0); BILIRUBIN,TOTAL 0.4 mg/dL (0.2-1.0); MAGNESIUM 2.1 mg/dL (1.80-2.40); POTASSIUM 3.7 mmol/L (3.5-5.1); TOTAL PROTEIN, SERUM 6.3 g/dL (6.0-8.3)
[2024-07-04 05:46] LABS: INR 1.08 (0.85-1.15); PROTHROMBIN TIME 11.4 SEC (9.6-11.6)
[2024-07-04 05:47] LABS: PARTIAL THROMBOPLASTIN TIME 69.8 SEC (26.3-35.5)
[2024-07-04] MEDS ORDERED: INSULIN DEGLUDEC 15 UNIT SQ SCH (07:30)
[2024-07-04 08:00] VITALS: BP 128/85; PULSE 121; RESP 20; TEMP 98.2; O2SAT 98
[2024-07-04] MEDS: cloPIDOgrel 75MG TAB PO SCH (09:02)
[2024-07-04] MEDS: ASPIRIN 81 MG EC TAB PO SCH (09:02)
[2024-07-04 12:00] VITALS: BP 129/77; PULSE 85; RESP 20; TEMP 98.1
[2024-07-04] MEDS: PoTASSium chloRIDE 20MEQ ER 20 MEQ ERTAB PO PRN (12:57)
[2024-07-04] MEDS ORDERED: PoTASSium chloRIDE 20MEQ/100ML 100 ML IV PRN (13:00)
[2024-07-04] MEDS ORDERED: GADOTERATE MEGLUMINE 10 MMOL/20 ML VIAL IV ONE (14:16)
[2024-07-04 16:00] VITALS: BP 127/86; PULSE 111; RESP 18; TEMP 98
--- NOTE | 2024-07-04 18:15 | CONS ---
Cardiology Consult Note Cardiology Attending: Shai Vivar Consulting Physician: Hospitalist Date of Service: 07/04/24 Reason for Consult: NSTEMI HPI: This is a 59-year-old male with a past medical history of CAD status post PCI with ANEL placement to the OM2 (Medtronic resolute mitzi 3.0 x 18 mm and 2.5 x 22 mm) done on 05/30/2023, residual 50-75% stenosis, in the distal LAD treated conservatively with medical therapy, PAD, HTN, HLP, DM2, and multiple infections in the right lower extremity status post multiple amputations, currently with a Lisfranc amputation who presents with generalized weakness/fatigue, 1 day in duration. The symptoms began while the patient was out drinking. Of note is that the patient was not drunk when the symptoms began. He states that his symptoms progressively worsened over the ensuing hour. The symptoms were not exacerbated or alleviated by anything. Associated symptoms included dizziness, near-syncope, chills, and mild chest pain. Pertinent negatives included syncope, chest pressure, palpitations, shortness or breath, dyspnea on exertion, PND, orthopnea, abdominal pain, nausea, or vomiting. The persistence of symptoms prompted the patient to come to the hospital where he was found to have residual infection in his right lower extremity, bacteremia, and elevated cardiac enzymes, which have peaked at 1243 and are currently of 1142. Cardiology was consulted regarding the elevated cardiac enzymes. Of note is that the patient was treated for osteomyelitis with 3 weeks of IV antibiotics in May of 2024. PMH: Listed above PSH: Listed above FH: Significant for CAD, HTN, DMII, and CVA. SH: Positive for alcohol abuse. Denies tobacco or illicit drug use. Allergies: Coded Allergies: No Known Allergies (Verified Allergy, Severe, 02/17/15) Review of systems: General: As per the HPI HEENT: Denies changes in vision, earache or sore throat Neck: Denies pain or stiffness Cardio: As per the HPI Pulm: Denies SOB, coughing or wheezing GI: Denies abdominal pain, nausea, vomiting, diarrhea, or constipation. MSK: Positive for pain in the right lower extremity. Heme: Denies anemia, easy bruising, or bleeding. Neuro: As per the HPI. Psych: Denies anxiety, depression, or suicide ideations. Physical Exam: Vital Signs Date Time Temp Pulse Resp B/P (MAP) Pulse Ox O2 Delivery O2 Flow Rate FiO2 07/04/24 12:00 98.1 85 20 129/77 98 Room Air 21 07/04/24 00:25 0 General: Alert and oriented x 3. NAD HEENT: NC/AT. Oral mucosa is moist. Neck: No masses, JVD, or carotid bruits Lungs: NRD. SCM. B/L CTA. No wheezing, rales or rhonchi. Cardio: Rate @ 77bpm. Normal S1 and S2. +S4. PMI was not displaced. Abdomen: Soft. NT. ND. Normal active bowel sounds x 4 quadrants. Extremities: The right lower extremity is wrapped in a heavy bandage. There is a foul smell emanating from the right lower extremity. There is a visible ulceration seen on the posterior aspect of the right lower extremity. Diminished pulses noted in the right popliteal artery. Neuro: CN II-XII were grossly intact. No focal deficits. Labs: Laboratory Tests Test 07/03/24 21:20 07/03/24 22:22 07/04/24 04:04 07/04/24 05:21 Range/Units Whole Blood Glucose 172 H 70-110 MG/DL Prothrombin Time 11.3 11.4 9.6-11.6 SEC Prothromb Time International Ratio 1.07 1.08 0.85-1.15 Activated Partial Thromboplast Time 62.7 #H 69.8 H 26.3-35.5 SEC White Blood Count 5.4 # 4.8-10.8 K/uL Red Blood Count 3.06 L 4.50-6.20 MIL/uL Hemoglobin 9.6 L 14.0-18.0 g/dL Hematocrit 27.6 L 42-54 % Mean Corpuscular Volume 90.2 79-99 fL Mean Corpuscular Hemoglobin 31.4 27.0-33.0 pg Mean Corpuscular Hemoglobin Concent 34.8 32.0-36.0 g/dL Red Cell Distribution Width 12.9 11.0-15.5 % Platelet Count 131 130-400 K/uL Mean Platelet Volume 10.0 7.5-10.5 fL Immature Granulocyte % (Auto) 0.2 0-1 % Neutrophils (%) (Auto) 61.5 40.0-77.0 % Lymphocytes (%) (Auto) 25.3 21.0-51.0 % Monocytes (%) (Auto) 10.0 3.0-13.0 % Eosinophils (%) (Auto) 2.4 0.0-8.0 % Basophils (%) (Auto) 0.6 0.0-5.0 % Neutrophils # (Auto) 3.3 1.8-7.7 K/uL Lymphocytes # (Auto) 1.4 1.0-4.8 K/uL Monocytes # (Auto) 0.5 0.1-1.0 K/uL Eosinophils # (Auto) 0.13 0.00-0.70 K/uL Basophils # (Auto) 0.03 0.00-0.20 K/uL Absolute Immature Granulocyte (auto 0.01 0-1 K/uL Nucleated Red Blood Cells 0.0 0.0-0.19 % Sodium Level 139 136-145 mmol/L Potassium Level 3.7 3.5-5.1 mmol/L Chloride Level 107 101-111 mmol/L Carbon Dioxide Level 29 21-32 mmol/L Blood Urea Nitrogen 20 H 7-18 mg/dL Creatinine 1.0 0.5-1.3 mg/dL Glomerular Filtration Rate Calc 88 >90 mL/min Random Glucose 130 H 70-105 mg/dL Total Calcium 8.4 L 8.5-10.1 mg/dL Magnesium Level 2.10 1.80-2.40 mg/dL Total Bilirubin 0.4 0.2-1.0 mg/dL Aspartate Amino Transf (AST/SGOT) 24 10-37 U/L Alanine Aminotransferase (ALT/SGPT) 18 12-78 U/L Alkaline Phosphatase 68 50-136 U/L Total Protein 6.3 6.0-8.3 g/dL Albumin 2.2 L 3.5-5.0 g/dL Test 07/04/24 05:41 07/04/24 11:19 07/04/24 12:29 07/04/24 15:48 Range/Units Whole Blood Glucose 121 H 124 H 119 H 70-110 MG/DL Troponin I High Sensitivity 1142 *H 4-75 ng/L MRI of the right lower extremity: Pending Assessment: 1. Generalized weakness/fatigue 2. Sepsis 3. Bacteremia (gram-positive rods) 4. Suspected osteomyelitis in the right lower extremity. 5. Elevated cardiac enzymes, type 1 versus type 2 AK 6. CAD status post PCI with ANEL placement to the OM2 (Medtronic resolute mitzi 3.0 x 18 mm and 2.5 x 22 mm) done on 05/30/2023 7. Residual 50-75% stenosis, in the distal LAD treated conservatively with medical therapy 8. PAD 9. HTN 10. HLP 11. DM2 Plan: 1. Elevated cardiac enzymes, type 1 versus type 2 AK -stable -CAD status post PCI with ANEL placement to the OM2 (Medtronic resolute mitzi 3.0 x 18 mm and 2.5 x 22 mm) done on 05/30/2023 -Residual 50-75% stenosis, in the distal LAD treated conservatively with medical therapy -ECG 07/03/2024: Sinus tachycardia. PACs and PVCs noted. Q-waves seen in the inferior leads. -laboratory data: High sensitivity troponin I : 883, 817, 893, 1243, 1142 -the patient presented on 07/03/2024 with generalized weakness/fatigue, and associated symptoms which included mild chest pain. His hospital workup has revealed a multitude of infectionzs including suspected osteomyelitis in the right lower extremity, and bacteremia. He currently denies any chest pain, chest pressure, or palpitations. In light of the above-mentioned resolution of symptoms, down trending elevated cardiac enzymes, and bacteremia, we recommend treating his myocardial infarction conservatively, with goal-directed medical therapy. This includes 48 hour of heparin IV drip, then discontinuing it, and continuing the patient only on aspirin 81 mg daily, clopidogrel 75 mg daily, metoprolol tartrate 25 mg BID and statin therapy. Pursuing an invasive cardiac workup/treatment is contraindicated in the setting of bacteremia, because of the risk of cardiac stents and bypass graft becoming infected 2. PAD -Stable -PE: The right lower extremity is wrapped in a heavy bandage. There is a foul smell emanating from the right lower extremity. There is a visible ulceration seen on the posterior aspect of the right lower extremity. Diminished pulses noted in the right popliteal artery. -the patient presents with suspected osteomyelitis affecting his right lower extremity. He has had multiple infections in his right lower extremity and has undergone multiple surgery/amputations and treatments with prolonged IV antibiotics. But despite these treatments he continues to have recurrent infections. This is likely because of underlying PAD. In order to further evaluate this issue we will order a right lower extremity arterial Doppler. We will await the results of the study before recommending further treatment. Thank you for this interesting consult and adenomatous to participate in the care of your patient. Further recommendations to follow. SHAI VIVAR MD Jul 04, 2024 18:15
--- NOTE | 2024-07-04 19:27 | PN ---
[facility] PROGRESS NOTE Date of Service: Jul 04, 2024 Time of Service: 19:03 SUBJECTIVE: Mr. Patrick is a 59-year-old male that was seen and examined today on 07/03/2024. Patient is a good historian of personal health Patient states that he came to the emergency department with a chief complaint of chest pain. Onset was 07/02/2024 at 4:30 p.m.. Location is to left lower chest along the midclavicular line. Duration is on and off. Character is described as pressure. Symptoms are aggravated with, " walking around the bar. "Patient states he was at a local bar consuming alcohol prior to coming to the emergency department. There was no alleviating factors. Patient reports associated right foot pain. Today in the emergency department WBCs 12.2, left shift neutrophils 82.2%, glucose 184 mg/dL, high sensitivity troponin 183, BNP 249, urinalysis is unremarkable, urine toxicology is unremarkable, alcohol level is 25. Emergency room physician recommended that patient be admitted with a diagnosis of chest pain. Additionally patient presented with a heart rate of 112, combined with patient's WBCs of 12.2 and identified suspected source of infection being right lower extremity wounds patient met clinical sepsis criteria. 07/03/2024 The patient was examined at bedside. The patient states resolution of his chest pain completely. There is wound in his right lower extremity. His temperature is fluctuating and has slight fever. The patient appears very weak fatigued and tired. He was on prolonged courses of antibiotics for a longer duration. He is in mild distress due to pain from his foot. Coordinating care with the [facility] consultant cardiology team and Infectious Disease team. He was recently hospitalized for prolonged period for his right lower extremity wound infection. Discuss the goal of care with the patient. Evaluating and ruling out all causes of his chest pain. 07/04/2024 10AM Patient is seen and examined at the bedside. He denies chest pain, fever, chills. He complains of right foot pain. Blood culture results are negative. He is on heparin drip in view of NSTEMI. Chest x-ray and CT PE resulted in no acute findings. Urinalysis positive for leukocyte esterase. Troponin trended up from 800-1243. Right wound aspirate gram stain resulted in gram negative rods and Gram-positive cocci in clusters Staph aureus. REVIEW OF SYSTEMS CONSTITUTIONAL: Denies fevers, chills, or night sweats. No unintentional weight loss reported. NEUROLOGICAL: Denies headache, amaurosis fugax, motor weakness, sensory deficit, vertigo/spinning sensation, gait abnormalities, or tremors. ENT: No hearing loss, otalgia, otorrhea, rhinitis, rhinorrhea, hoarseness, or sore throat. CARDIOVASCULAR: Denies any exertional angina, dyspnea on exertion, orthopnea, paroxysmal nocturnal dyspnea, palpitations, life-threatening arrhythmias, claudication. PULMONARY: Denies any shortness of breath, cough, phlegm/sputum, hemoptysis, pleuritic chest pain. SLEEP: Denies morning headaches, daytime somnolence or napping. Denies difficulty falling asleep, staying asleep, waking from sleep. Denies knowledge of snoring. GASTROINTESTINAL: Denies any type of dysphagia to either liquids or solids. Denies nausea, vomiting, pyrosis, early satiety, abdominal pain, diarrhea, constipation, or changes in stool consistency or caliber. Denies coffee-ground e mesis, hematemesis, hematochezia, or melanotic stools. GENITOURINARY: Denies frequency, urgency, nocturia, hematuria or incontinence (Storage/Irritative symptoms.) Low urinary stream, straining to void, urinary intermittency or hesitancy, splitting of the voiding stream, terminal dribbling. ENDOCRINOLOGIC: Denies polyuria, polydipsia, polyphagia or heat/cold intolerances. HEMATOLOGIC: Denies thrombophilia/previous clots, or coagulopathy/bleeding disorders. ONCOLOGIC: Denies personal history of malignancy. DERMATOLOGIC: Denies rashes or pruritus. PSYCHIATRIC: Denies any suicidal or homicidal ideation. Denies hallucinations. PHYSICAL EXAM GENERAL APPEARANCE: The patient is awake, alert, and oriented, in no acute cardiopulmonary distress. NEUROLOGICAL: Cranial nerves II-XII grossly intact. Motor is 5/5 in bilateral upper and lower extremities proximal to distal. No sensory deficits. HEENT: Face is symmetric. Pupils are equal and reactive. Extraocular movements are intact. NECK: Supple. No JVD. No thyromegaly. No submental, submandibular, pre-/posta uricular, occipital or supraclavicular lymphadenopathy. CHEST: Normal chest expansion. No Telemetry. LUNGS: Absence of any rales, rhonchi or any wheezing. CARDIOVASCULAR: Regular. S1 and S2 normal. No appreciable rubs, murmurs or gallops. ABDOMEN: Soft, nontender, and nondistended. There is no rebound, voluntary guarding, or rigidity. : Deferred. No Abrams. EXTREMITIES: Non-edematous and not cyanotic. No clubbing. Good capillary refill. SKIN: No skin breakdown. Vital Signs (last 8hr) Date Time Temp Pulse Resp B/P (MAP) Pulse Ox O2 Delivery O2 Flow Rate FiO2 07/04/24 12:00 98.1 85 20 129/77 98 Room Air 21 LABS: Laboratory: Test 07/04/24 15:48 07/04/24 12:29 07/04/24 05:21 07/04/24 04:04 Range/Units Whole Blood Glucose 119 H 70-110 MG/DL Troponin I High Sensitivity 1142 *H 4-75 ng/L Prothrombin Time 11.4 9.6-11.6 SEC Prothromb Time International Ratio 1.08 0.85-1.15 Activated Partial Thromboplast Time 69.8 H 26.3-35.5 SEC White Blood Count 5.4 # 4.8-10.8 K/uL Red Blood Count 3.06 L 4.50-6.20 MIL/uL Hemoglobin 9.6 L 14.0-18.0 g/dL Hematocrit 27.6 L 42-54 % Mean Corpuscular Volume 90.2 79-99 fL Mean Corpuscular Hemoglobin 31.4 27.0-33.0 pg Mean Corpuscular Hemoglobin Concent 34.8 32.0-36.0 g/dL Red Cell Distribution Width 12.9 11.0-15.5 % Platelet Count 131 130-400 K/uL Mean Platelet Volume 10.0 7.5-10.5 fL Immature Granulocyte % (Auto) 0.2 0-1 % Neutrophils (%) (Auto) 61.5 40.0-77.0 % Lymphocytes (%) (Auto) 25.3 21.0-51.0 % Monocytes (%) (Auto) 10.0 3.0-13.0 % Eosinophils (%) (Auto) 2.4 0.0-8.0 % Basophils (%) (Auto) 0.6 0.0-5.0 % Neutrophils # (Auto) 3.3 1.8-7.7 K/uL Lymphocytes # (Auto) 1.4 1.0-4.8 K/uL Monocytes # (Auto) 0.5 0.1-1.0 K/uL Eosinophils # (Auto) 0.13 0.00-0.70 K/uL Basophils # (Auto) 0.03 0.00-0.20 K/uL Absolute Immature Granulocyte (auto 0.01 0-1 K/uL Nucleated Red Blood Cells 0.0 0.0-0.19 % Sodium Level 139 136-145 mmol/L Potassium Level 3.7 3.5-5.1 mmol/L Chloride Level 107 101-111 mmol/L Carbon Dioxide Level 29 21-32 mmol/L Blood Urea Nitrogen 20 H 7-18 mg/dL Creatinine 1.0 0.5-1.3 mg/dL Glomerular Filtration Rate Calc 88 >90 mL/min Random Glucose 130 H 70-105 mg/dL Total Calcium 8.4 L 8.5-10.1 mg/dL Magnesium Level 2.10 1.80-2.40 mg/dL Total Bilirubin 0.4 0.2-1.0 mg/dL Aspartate Amino Transf (AST/SGOT) 24 10-37 U/L Alanine Aminotransferase (ALT/SGPT) 18 12-78 U/L Alkaline Phosphatase 68 50-136 U/L Total Protein 6.3 6.0-8.3 g/dL Albumin 2.2 L 3.5-5.0 g/dL Test 07/03/24 15:59 07/03/24 05:50 07/03/24 01:33 07/03/24 00:50 Range/Units Erythrocyte Sedimentation Rate 60 H 0-20 MM/HR C-Reactive Protein, Quantitative 97.30 H 0.5-3.0 mg/L Hemoglobin A1c 6.8 H 4.0-6.0 % Estimated Average Glucose (eAG) 148 H 70-126 mg/dL Phosphorus Level 2.4 L 2.5-4.9 mg/dL Lactic Acid Level 1.5 0.8-2.5 mmol/L Procalcitonin 0.18 0.05-0.5 ng/mL Urine Color LIGHT-YELLOW YELLOW Urine Appearance CLEAR CLEAR Urine pH 6.0 5.0-8.0 Urine Specific [place] 1.012 1.001-1.031 Urine Protein 300 H NEGATIVE mg/dL Urine Glucose (UA) 50 H NEGATIVE mg/dL Urine Ketones NEGATIVE NEGATIVE mg/dL Urine Occult Blood MODERATE H NEGATIVE Urine Nitrate NEGATIVE NEGATIVE Urine Bilirubin NEGATIVE NEGATIVE mg/dL Urine Urobilinogen 0.2 0.2-1.0 mg/dL Urine Leukocyte Esterase 25 H NEGATIVE Zulema/uL Urine RBC 2-5 H 0-1 /HPF Urine WBC 2-5 H 0-1 /HPF Urine Squamous Epithelial Cells RARE 0-2 /HPF Urine Bacteria FEW None Seen /HPF Urine Opiates Screen NEGATIVE NEGATIVE Urine Barbiturates Screen NEGATIVE NEGATIVE Urine Phencyclidine Screen NEGATIVE NEGATIVE Urine Amphetamines Screen NEGATIVE NEGATIVE Urine Benzodiazepines Screen NEGATIVE NEGATIVE Urine Cocaine Screen NEGATIVE NEGATIVE Urine Marijuana (THC) Screen NEGATIVE NEGATIVE Test 07/02/24 23:47 Range/Units B-Type Natriuretic Peptide 249 H 0-100 pg/mL Serum Alcohol 25 H 0-10 mg/dL Current Medications Medications (Trade) Dose Ordered Sig/Jl Route PRN Reason Start Time Stop Time Status Last Admin Dose Admin Acetaminophen (TYLenol 325MG TAB) 650 mg Q6H PRN PO TEMPERATURE GREATER THAN 101.5 07/03/24 03:00 08/02/24 02:59 Aspirin (Aspirin 81mg Ec Tab) 81 mg DAILY PO 07/04/24 09:00 08/03/24 08:59 07/04/24 09:02 81 MG Atorvastatin Calcium (LIPItor 40MG) 40 mg HS PO 07/03/24 21:00 08/02/24 20:59 07/03/24 21:17 40 MG Chlordiazepoxide HCl (LIBrium 25 MG CAP) 25 mg Q8H PO 07/03/24 03:00 07/10/24 02:59 07/04/24 18:10 25 MG Clopidogrel Bisulfate (plaVIX 75MG) 75 mg DAILY PO 07/04/24 09:00 08/03/24 08:59 07/04/24 09:02 75 MG Famotidine (Pepcid 20mg Tab) 20 mg DAILY PO 07/03/24 09:00 08/02/24 08:59 07/04/24 09:02 20 MG Heparin Sodium (Porcine) (HEParin 5,000 UNIT VIAL) *calculation based on ACTUAL B... AD PRN IV HEPARIN PROTOCOL 07/03/24 04:00 07/03/24 03:51 DC 07/03/24 03:41 6,000 UNIT Heparin Sodium/ Dextrose 250 ml @ 0 mls/hr Q6H IV 07/03/24 04:00 08/02/24 03:59 07/04/24 01:43 0 MLS/HR Hydralazine HCl (APRESOLine 20MG INJ) 10 mg Q6H PRN IV For:SBP above 160;DBP above 90 07/03/24 03:00 08/02/24 02:59 Insulin Glargine (LANtus 100 UNITS/ML 10 ML VIAL) 15 units BID SQ 07/03/24 21:00 08/02/24 20:59 07/04/24 09:10 15 UNITS Leptospermum Honey (Medihoney) 1 APPL DAILY TP 07/03/24 14:00 08/02/24 13:59 07/04/24 12:56 1 APPL Lorazepam (AtiVAN) 1 mg Q4H PRN IVP ALCOHOL WITHDRAWAL PROTOCOL 07/03/24 03:00 07/10/24 02:59 Magnesium Sulfate 50 ml @ 0 mls/hr PROTOCOL PRN IV Electrolyte abnormality 07/03/24 12:00 08/02/24 11:59 Metoprolol Tartrate (loprESSOR) 25 mg BID PO 07/03/24 21:00 08/02/24 20:59 07/04/24 09:02 25 MG Miscellaneous Medication (Insulin Degludec (Tresiba Flextouch U-100)) 15 units ACBKFST SQ 07/04/24 07:30 07/03/24 14:11 DC Miscellaneous Medication ([Tramadol ] ) 50 mg BID PRN PO P610 07/03/24 14:00 07/03/24 14:09 DC Morphine Sulfate (morPHINE 2MG SYG) 2 mg Q4H PRN IVP SEVERE PAIN (7-10) 07/03/24 03:30 07/10/24 03:29 Nitroglycerin (Nitroglycerin 1gm Oint) 0.5 inch Q8H TD 07/03/24 03:00 08/02/24 02:59 07/04/24 18:12 0.5 INCH Ondansetron HCl (zoFRAN 4MG INJ) 4 mg Q6H PRN IV NAUSEA/VOMITING 07/03/24 03:00 08/02/24 02:59 Pharmacy Profile Note (Pharmacy Communication) 1 each PROTOCOL PRN MISC ETOH Withdrawal Score changes 07/03/24 03:00 07/10/24 02:59 Piperacillin Sod/ Tazobactam Sod (Zosyn 3.375gm+NS 50ml) 3.375 gm Q8H IV 07/03/24 01:30 07/03/24 03:03 DC 07/03/24 01:37 3.375 GM Piperacillin Sod/ Tazobactam Sod (Zosyn 3.375gm+NS 50ml) 3.375 gm Q8H IVPB 07/03/24 09:30 07/13/24 09:29 07/04/24 18:10 3.375 GM Potassium Chloride 100 ml @ 50 mls/hr AD PRN IV POTASSIUM PROTOCOL 07/03/24 12:00 08/02/24 11:59 Potassium Chloride 100 ml @ 100 mls/hr AD PRN IV POTASSIUM PROTOCOL 07/04/24 13:00 07/04/24 12:43 DC Potassium Chloride (K-Dur/Klor-Con 20meq) 20 meq AD PRN PO POTASSIUM PROTOCOL 07/04/24 13:00 08/03/24 12:59 07/04/24 12:57 20 MEQ Potassium Chloride (KCl 10% Elixir 20meq/15ml) 20 meq AD PRN PO POTASSIUM PROTOCOL 07/04/24 13:00 08/03/24 12:59 Pregabalin ([id number]) 75 mg BID PO 07/03/24 21:00 08/02/24 20:59 07/04/24 09:02 75 MG Sodium Chloride (NS 50ml) 50 ml AD IV 07/03/24 03:00 07/03/24 11:34 DC Vancomycin HCl (Vancomycin 1.25 Gm/250 ml Bag) 1.25 gm ONCE IV 07/03/24 11:30 07/03/24 11:33 DC DIAGNOSTICS / RADIOLOGY: [ ] ASSESSMENT: ASSESSMENT: Chest pain, POA Non-STEMI, currently on heparin drip, POA Elevated cardiac enzymes, POA Right foot wound, POA Right ankle wound, POA Sepsis, POA Alcohol dependence, POA Leukocytosis, POA Uncontrolled Diabetes mellitius type2, POA Hypertension Hyperlipidemia Type 2 diabetes mellitus Right internal carotid artery stenosis History of CVA in April 2022 Grade 1 diastolic heart failure by 2D echo on 05/26/2023 with EF 40-45% Peripheral artery disease right lower extremity by ultrasound on 04/14/2024]] PLAN: Continue telemetry monitoring. Chest pain with elevated troponin: Chest pain has resolved troponin trended from 800s [id number] Supplemental oxygen to maintain O2 saturation greater than 92% Cardiology consult recommended 48 hour of heparin IV drip and later continuing the patient only on aspirin 81 mg daily, clopidogrel 75 mg daily, metoprolol tartrate 25 mg BID and statin therapy. No invasive cardiac workup/treatment is indicated in view of bacteremia. Right foot wound, right ankle wound: Wound gram stain revealed Gram-negative rods and Gram-positive cocci in clusters, staph aureus Follow up on wound culture results Wound Care Service recommended Medihoney dressings. Continue Zosyn IV per ID recommendations. Sepsis, leukocytosis: Fluid resuscitation with lactated Ringer's 30 mL/kg. Continue antibiotic therapy with Zosyn. Reviewed patient's lactic acid, unremarkable. Blood culture results are negative Urinary tract infection, POA Reviewed patient's urinalysis which is mildly suggestive of UTI very few white blood cell count this could be a contaminated sample although squamous epithelial cells are rare. Differential diagnosis of UTI we will be covered by aforementioned antimicrobial therapy, Zosyn. Follow up on urine culture results Alcohol dependence: Counseled patient on alcohol cessation. Librium 25 mg by mouth every 8 hours As needed Ativan for alcohol withdrawal 1 mg every 4 hours Use CIWA-AR assessment tool Document EtOH withdrawal score Assess the need for seizure and aspiration precautions We will order thiamine preparation for the patient Diabetes mellitus type 2: Check hemoglobin A1c in a.m. Glucometer checks a.c. and HS 1800 ADA diet Humulin R sliding scale PAD Stable ulceration on the sole of the right lower extremity. Follow up on lower extremity Doppler results Hypertension, hyperlipidemia, right internal carotid artery stenosis, grade 1 diastolic heart failure Intake and output every shift. Daily weights Hydralazine 10 mg IV every 4 hours for systolic blood pressure greater than 160 mmHg GI prophylaxis, famotidine DVT prophylaxis, patient will be on heparin drip as mentioned above, as per Cardiology recommendation ATTESTATION BY PHYSICIAN I have seen and examined the patient. I reviewed the documentation, medical decision making, and treatment plan as noted by the resident above. I agree with the findings and plan of care. SHAINANORTH Cueva MD, PRIYANKA MD Jul 04, 2024 19:27
--- NOTE | 2024-07-04 19:27 | HMCIMG ---
US ARTERIAL UNILA LOW EXT DUPL HISTORY: Peripheral vascular disease with prior right foot amputation. COMPARISON: None TECHNIQUE: Right lower extremity arterial Doppler ultrasound study was performed. FINDINGS: There is triphasic waveforms to the distal superficial femoral artery with monophasic waveforms in the popliteal artery and posterior tibial artery. On the right, the peak systolic velocity of the common femoral artery is 113 cm/s, the proximal femoral artery is 87 cm/s, the mid femoral artery is 107 cm/s, the distal femoral artery is 88 cm/s, the popliteal artery is 88 cm/s, the posterior tibial artery artery is 38 cm/s. IMPRESSION: Patent outflow to the level of the distal superficial femoral artery with likely mild to moderately diseased popliteal and posterior tibial artery runoff.
[2024-07-04 20:00] VITALS: BP 129/82; PULSE 90; RESP 20; TEMP 97.5; O2SAT 99
--- NOTE | 2024-07-04 20:51 | HMCIMG ---
MR FOOT RIGHT WWO HISTORY: right stump wound COMPARISON: 04/15/2024 TECHNIQUE: MRI of the right foot was performed utilizing multiple pulse sequences in axial, coronal and sagittal planes. Patient given 19 mL of IV contrast through intravenous route. FINDINGS: Marilee signal intensity is seen of the visualized bony structure. No appreciable amount of joint effusion is seen. There is no identified deep soft tissue fluid collections suggest an abscess. No rupture or Achilles tendon is seen. The flexor and extensor tendons appear intact. There is increased signal demonstrated within the musculature and T2-weighted images and increased signal in the subcutaneous fat. There is change from prior forefoot and midfoot amputation. IMPRESSION: 1. Findings most suggestive of myositis cellulitis with no identified osteomyelitis
--- NOTE | 2024-07-04 21:38 | PN ---
INFECTIOUS DISEASE FOLLOWUP NOTE DATE OF SERVICE: 07/04/2024 SUBJECTIVE: Patient is seen and examined today. He has no fever, no chills. No bleeding tendency. No slurred speech or limb weakness. No depression. No suicidal ideation. No neck pain or neck swelling. PHYSICAL EXAMINATION: VITAL SIGNS: Temperature 97.9. EYES: No icterus. Pupils equal and reactive. HENT: No oral lesions seen. Moist oral mucosa. NECK: Supple. No JVD or thyromegaly. LUNGS: Good air entry. No rales, no rhonchi. CARDIOVASCULAR SYSTEM: S1, S2 regular. No murmur heard. ABDOMEN: Obese, soft. Bowel sounds are present. CENTRAL NERVOUS SYSTEM: Awake, alert, oriented x 3. No focal deficits. SKIN: No rashes, no itchiness. LYMPHATIC: There is no inguinal lymphadenopathy. BACK: No deformity, no pressure ulcer. EXTREMITIES: Ulcer involving posterior aspect of the right lower leg. Ulcer involving right foot stump with purulent drainage. ASSESSMENT: A 59-year-old male admitted with chest pain. Current problems include: * Possible angina pectoris. * Elevated troponin. * Right foot stump ulcer. * Right leg ulcer and cellulitis. * Obesity. * Chronic alcoholism. PLAN: * Continue wound care. * Continue pain management. * Continue Zosyn. * Follow up cultures. * Follow up MRI result. * Continue DVT prophylaxis. TID: [id number] RECEIPT: [id number] MTD
[2024-07-05] VITALS (7 sets, daily range): BP systolic 94–130; BP diastolic 24–83; PULSE 72–87; RESP 16–20; TEMP 97.5–98.1; O2SAT 99–100
[2024-07-05 06:00] LABS: BASOPHILS # (AUTO) 0.02 K/uL (0.00-0.20); BASOPHILS % (AUTO) 0.5 % (0.0-5.0); EOSINOPHILS # (AUTO) 0.11 K/uL (0.00-0.70); EOSINOPHILS % (AUTO) 2.7 % (0.0-8.0); HEMATOCRIT 29.5 % (42-54); IMMATURE GRANULOCYTE ABSOLUTE 0.02 K/uL (0-1); LYMPHOCYTES # (AUTO) 1.4 K/uL (1.0-4.8); LYMPHOCYTES % (AUTO) 34.3 % (21.0-51.0); MEAN CORPUSCULAR HEMOGLOBIN 30.9 pg (27.0-33.0); MEAN CORPUSCULAR HGB CONC 33.6 g/dL (32.0-36.0); MEAN CORPUSCULAR VOLUME 92.2 fL (79-99); MONOCYTES # (AUTO) 0.3 K/uL (0.1-1.0); MONOCYTES % (AUTO) 8.4 % (3.0-13.0); NEUTROPHILS # (AUTO) 2.2 K/uL (1.8-7.7); NEUTROPHILS % (AUTO) 53.6 % (40.0-77.0); PLATELET COUNT (AUTO) 141 K/uL (130-400); RED CELL DISTRIBUTION WIDTH 13.1 % (11.0-15.5); WHITE BLOOD COUNT (AUTO) 4.1 K/uL (4.8-10.8)
[2024-07-05 06:14] LABS: INR 1.07 (0.85-1.15); PROTHROMBIN TIME 11.3 SEC (9.6-11.6)
[2024-07-05 06:15] LABS: PARTIAL THROMBOPLASTIN TIME 72.4 SEC (26.3-35.5)
[2024-07-05 06:18] LABS: ALBUMIN 2.1 g/dL (3.5-5.0); BILIRUBIN,TOTAL 0.3 mg/dL (0.2-1.0); CREATININE 1.1 mg/dL (0.5-1.3); POTASSIUM 3.5 mmol/L (3.5-5.1); TOTAL PROTEIN, SERUM 6.4 g/dL (6.0-8.3)
[2024-07-05 07:04] LABS: EOSINOPHILS % (MANUAL) 2 % (1-6); LYMPHOCYTES % (MANUAL) 32 % (22-44); MAN.DIFF COMMENT-IMPRESSION MANUAL DIFFERENTIAL; MONOCYTES % (MANUAL) 8 % (2-9); PLATELET MORPHOLOGY COMMENT ADEQUATE; SEGMENTED NEUTROPHILS % 58 % (40-70); TOTAL CELLS COUNTED 100
[2024-07-05] MEDS: THIAMINE HCL 100 MG TABLET PO SCH (09:31)
[2024-07-05 11:02] LABS: INR 1.08 (0.85-1.15); PROTHROMBIN TIME 11.4 SEC (9.6-11.6)
[2024-07-05 11:04] LABS: PARTIAL THROMBOPLASTIN TIME 55.3 SEC (26.3-35.5)
--- NOTE | 2024-07-05 15:01 | PN ---
[facility] PROGRESS NOTE Date of Service: Jul 05, 2024 Time of Service: 14:55 SUBJECTIVE: Mr. Patrick is a 59-year-old male that was seen and examined today on 07/03/2024. Patient is a good historian of personal health Patient states that he came to the emergency department with a chief complaint of chest pain. Onset was 07/02/2024 at 4:30 p.m.. Location is to left lower chest along the midclavicular line. Duration is on and off. Character is described as pressure. Symptoms are aggravated with, " walking around the bar. "Patient states he was at a local bar consuming alcohol prior to coming to the emergency department. There was no alleviating factors. Patient reports associated right foot pain. Today in the emergency department WBCs 12.2, left shift neutrophils 82.2%, glucose 184 mg/dL, high sensitivity troponin 183, BNP 249, urinalysis is unremarkable, urine toxicology is unremarkable, alcohol level is 25. Emergency room physician recommended that patient be admitted with a diagnosis of chest pain. Additionally patient presented with a heart rate of 112, combined with patient's WBCs of 12.2 and identified suspected source of infection being right lower extremity wounds patient met clinical sepsis criteria. 07/03/2024 The patient was examined at bedside. The patient states resolution of his chest pain completely. There is wound in his right lower extremity. His temperature is fluctuating and has slight fever. The patient appears very weak fatigued and tired. He was on prolonged courses of antibiotics for a longer duration. He is in mild distress due to pain from his foot. Coordinating care with the Wound senior internet sales consultant cardiology team and Infectious Disease team. He was recently hospitalized for prolonged period for his right lower extremity wound infection. Discuss the goal of care with the patient. Evaluating and ruling out all causes of his chest pain. 07/04/2024 10AM Patient is seen and examined at the bedside. He denies chest pain, fever, chills. He complains of right foot pain. Blood culture results are negative. He is on heparin drip in view of NSTEMI. Chest x-ray and CT PE resulted in no acute findings. Urinalysis positive for leukocyte esterase. Troponin trended up from 800-1243. Right wound aspirate gram stain resulted in gram negative rods and Gram-positive cocci in clusters Staph aureus. 07/05/24: Patient seen and examined in the morning denies any new complaints. Denies chest pain denies shortness of breath denies fever or chills. MRI shows no osteomyelitis only cellulitis changes. Blood culture is growing Gram-positive meghna in one of the bottle final sensitivity and identification is still pending. Cardiology has already seen the patient and recommended conservative management with heparin drip for48 hours aspirin Plavix and high- intensity statin. Heparin drip will be stopped today REVIEW OF SYSTEMS CONSTITUTIONAL: Denies fevers, chills, or night sweats. No unintentional weight loss reported. NEUROLOGICAL: Denies headache, amaurosis fugax, motor weakness, sensory deficit, vertigo/spinning sensation, gait abnormalities, or tremors. ENT: No hearing loss, otalgia, otorrhea, rhinitis, rhinorrhea, hoarseness, or sore throat. CARDIOVASCULAR: Denies any exertional angina, dyspnea on exertion, orthopnea, paroxysmal nocturnal dyspnea, palpitations, life-threatening arrhythmias, claudication. PULMONARY: Denies any shortness of breath, cough, phlegm/sputum, hemoptysis, pleuritic chest pain. SLEEP: Denies morning headaches, daytime somnolence or napping. Denies difficulty falling asleep, staying asleep, waking from sleep. Denies knowledge of snoring. GASTROINTESTINAL: Denies any type of dysphagia to either liquids or solids. Denies nausea, vomiting, pyrosis, early satiety, abdominal pain, diarrhea, constipation, or changes in stool consistency or caliber. Denies coffee-ground emesis, hematemesis, hematochezia, or melanotic stools. GENITOURINARY: Denies frequency, urgency, nocturia, hematuria or incontinence (Storage/Irritative symptoms.) Low urinary stream, straining to void, urinary intermittency or hesitancy, splitting of the voiding stream, terminal dribbling. ENDOCRINOLOGIC: Denies polyuria, polydipsia, polyphagia or heat/cold intolerances. HEMATOLOGIC: Denies thrombophilia/previous clots, or coagulopathy/bleeding disorders. ONCOLOGIC: Denies personal history of malignancy. DERMATOLOGIC: Denies rashes or pruritus. PSYCHIATRIC: Denies any suicidal or homicidal ideation. Denies hallucinations. PHYSICAL EXAM GENERAL APPEARANCE: The patient is awake, alert, and oriented, in no acute cardiopulmonary distress. NEUROLOGICAL: Cranial nerves II-XII grossly intact. Motor is 5/5 in bilateral upper and lower extremities proximal to distal. No sensory deficits. HEENT: Face is symmetric. Pupils are equal and reactive. Extraocular movements are intact. NECK: Supple. No JVD. No thyromegaly. No submental, submandibular, pre-/postau ricular, occipital or supraclavicular lymphadenopathy. CHEST: Normal chest expansion. No Telemetry. LUNGS: Absence of any rales, rhonchi or any wheezing. CARDIOVASCULAR: Regular. S1 and S2 normal. No appreciable rubs, murmurs or gallops. ABDOMEN: Soft, nontender, and nondistended. There is no rebound, voluntary guarding, or rigidity. : Deferred. No Abrams. EXTREMITIES: Right foot with amputation dressing is clean and intact. SKIN: No skin breakdown. Vital Signs (last 8hr) Date Time Temp Pulse Resp B/P (MAP) Pulse Ox O2 Delivery O2 Flow Rate FiO2 07/05/24 11:38 97.5 76 16 130/83 100 Room Air 21 07/05/24 08:00 97.7 80 16 115/75 98 Room Air 21 LABS: Laboratory: Test 07/05/24 11:06 07/05/24 10:44 07/05/24 05:42 07/04/24 12:29 Range/Units Whole Blood Glucose 125 H 70-110 MG/DL Prothrombin Time 11.4 9.6-11.6 SEC Prothromb Time International Ratio 1.08 0.85-1.15 Activated Partial Thromboplast Time 55.3 H 26.3-35.5 SEC White Blood Count 4.1 L 4.8-10.8 K/uL Red Blood Count 3.20 L 4.50-6.20 MIL/uL Hemoglobin 9.9 L 14.0-18.0 g/dL Hematocrit 29.5 L 42-54 % Mean Corpuscular Volume 92.2 79-99 fL Mean Corpuscular Hemoglobin 30.9 27.0-33.0 pg Mean Corpuscular Hemoglobin Concent 33.6 32.0-36.0 g/dL Red Cell Distribution Width 13.1 11.0-15.5 % Platelet Count 141 130-400 K/uL Mean Platelet Volume 10.1 7.5-10.5 fL Immature Granulocyte % (Auto) 0.5 0-1 % Neutrophils (%) (Auto) 53.6 40.0-77.0 % Lymphocytes (%) (Auto) 34.3 21.0-51.0 % Monocytes (%) (Auto) 8.4 3.0-13.0 % Eosinophils (%) (Auto) 2.7 0.0-8.0 % Basophils (%) (Auto) 0.5 0.0-5.0 % Neutrophils # (Auto) 2.2 1.8-7.7 K/uL Lymphocytes # (Auto) 1.4 1.0-4.8 K/uL Monocytes # (Auto) 0.3 0.1-1.0 K/uL Eosinophils # (Auto) 0.11 0.00-0.70 K/uL Basophils # (Auto) 0.02 0.00-0.20 K/uL Absolute Immature Granulocyte (auto 0.02 0-1 K/uL Segmented Neutrophils % 58 40-70 % Lymphocytes % (Manual) 32 22-44 % Monocytes % (Manual) 8 2-9 % Eosinophils % (Manual) 2 1-6 % Nucleated Red Blood Cells 0.0 0.0-0.19 % Differential Comment MANUAL DIFFERENTIAL White Cell Morphology Comment Platelet Morphology Comment ADEQUATE Red Blood Cell Morphology See comments Sodium Level 139 136-145 mmol/L Potassium Level 3.5 3.5-5.1 mmol/L Chloride Level 107 101-111 mmol/L Carbon Dioxide Level 27 21-32 mmol/L Blood Urea Nitrogen 16 7-18 mg/dL Creatinine 1.1 0.5-1.3 mg/dL Glomerular Filtration Rate Calc 78 >90 mL/min Random Glucose 101 70-105 mg/dL Total Calcium 8.3 L 8.5-10.1 mg/dL Total Bilirubin 0.3 0.2-1.0 mg/dL Aspartate Amino Transf (AST/SGOT) 25 10-37 U/L Alanine Aminotransferase (ALT/SGPT) 20 12-78 U/L Alkaline Phosphatase 81 50-136 U/L Total Protein 6.4 6.0-8.3 g/dL Albumin 2.1 L 3.5-5.0 g/dL Troponin I High Sensitivity 1142 *H 4-75 ng/L Test 07/04/24 04:04 07/03/24 15:59 Range/Units Magnesium Level 2.10 1.80-2.40 mg/dL Erythrocyte Sedimentation Rate 60 H 0-20 MM/HR C-Reactive Protein, Quantitative 97.30 H 0.5-3.0 mg/L Current Medications Medications (Trade) Dose Ordered Sig/Jl Route PRN Reason Start Time Stop Time Status Last Admin Dose Admin Acetaminophen (TYLenol 325MG TAB) 650 mg Q6H PRN PO TEMPERATURE GREATER THAN 101.5 07/03/24 03:00 08/02/24 02:59 Aspirin (Aspirin 81mg Ec Tab) 81 mg DAILY PO 07/04/24 09:00 08/03/24 08:59 07/05/24 09:31 81 MG Atorvastatin Calcium (LIPItor 40MG) 40 mg HS PO 07/03/24 21:00 08/02/24 20:59 07/04/24 20:22 40 MG Chlordiazepoxide HCl (LIBrium 25 MG CAP) 25 mg Q8H PO 07/03/24 03:00 07/10/24 02:59 07/05/24 11:47 25 MG Clopidogrel Bisulfate (plaVIX 75MG) 75 mg DAILY PO 07/04/24 09:00 08/03/24 08:59 07/05/24 09:31 75 MG Famotidine (Pepcid 20mg Tab) 20 mg DAILY PO 07/03/24 09:00 08/02/24 08:59 07/05/24 09:32 20 MG Heparin Sodium (Porcine) (HEParin 5,000 UNIT VIAL) *calculation based on ACTUAL B... AD PRN IV HEPARIN PROTOCOL 07/03/24 04:00 07/03/24 03:51 DC 07/03/24 03:41 6,000 UNIT Heparin Sodium/ Dextrose 250 ml @ 0 mls/hr Q6H IV 07/03/24 04:00 08/02/24 03:59 07/05/24 03:07 0 MLS/HR Hydralazine HCl (APRESOLine 20MG INJ) 10 mg Q6H PRN IV For:SBP above 160;DBP above 90 07/03/24 03:00 08/02/24 02:59 Insulin Glargine (LANtus 100 UNITS/ML 10 ML VIAL) 15 units BID SQ 07/03/24 21:00 08/02/24 20:59 07/05/24 09:40 15 UNITS Leptospermum Honey (Medihoney) 1 APPL DAILY TP 07/03/24 14:00 08/02/24 13:59 07/05/24 09:46 1 APPL Lorazepam (AtiVAN) 1 mg Q4H PRN IVP ALCOHOL WITHDRAWAL PROTOCOL 07/03/24 03:00 07/10/24 02:59 Magnesium Sulfate 50 ml @ 0 mls/hr PROTOCOL PRN IV Electrolyte abnormality 07/03/24 12:00 08/02/24 11:59 Metoprolol Tartrate (loprESSOR) 25 mg BID PO 07/03/24 21:00 08/02/24 20:59 07/05/24 09:32 25 MG Miscellaneous Medication (Insulin Degludec (Tresiba Flextouch U-100)) 15 units ACBKFST SQ 07/04/24 07:30 07/03/24 14:11 DC Miscellaneous Medication ([Tramadol ] ) 50 mg BID PRN PO P610 07/03/24 14:00 07/03/24 14:09 DC Morphine Sulfate (morPHINE 2MG SYG) 2 mg Q4H PRN IVP SEVERE PAIN (7-10) 07/03/24 03:30 07/10/24 03:29 Nitroglycerin (Nitroglycerin 1gm Oint) 0.5 inch Q8H TD 07/03/24 03:00 08/02/24 02:59 07/05/24 11:49 0.5 INCH Ondansetron HCl (zoFRAN 4MG INJ) 4 mg Q6H PRN IV NAUSEA/VOMITING 07/03/24 03:00 08/02/24 02:59 Pharmacy Profile Note (Pharmacy Communication) 1 each PROTOCOL PRN MISC ETOH Withdrawal Score changes 07/03/24 03:00 07/10/24 02:59 Piperacillin Sod/ Tazobactam Sod (Zosyn 3.375gm+NS 50ml) 3.375 gm Q8H IV 07/03/24 01:30 07/03/24 03:03 DC 07/03/24 01:37 3.375 GM Piperacillin Sod/ Tazobactam Sod (Zosyn 3.375gm+NS 50ml) 3.375 gm Q8H IVPB 07/03/24 09:30 07/13/24 09:29 07/05/24 09:46 3.375 GM Potassium Chloride 100 ml @ 50 mls/hr AD PRN IV POTASSIUM PROTOCOL 07/03/24 12:00 08/02/24 11:59 Potassium Chloride 100 ml @ 100 mls/hr AD PRN IV POTASSIUM PROTOCOL 07/04/24 13:00 07/04/24 12:43 DC Potassium Chloride (K-Dur/Klor-Con 20meq) 20 meq AD PRN PO POTASSIUM PROTOCOL 07/04/24 13:00 08/03/24 12:59 07/05/24 09:46 20 MEQ Potassium Chloride (KCl 10% Elixir 20meq/15ml) 20 meq AD PRN PO POTASSIUM PROTOCOL 07/04/24 13:00 08/03/24 12:59 Pregabalin ([id number]) 75 mg BID PO 07/03/24 21:00 08/02/24 20:59 07/05/24 09:31 75 MG Sodium Chloride (NS 50ml) 50 ml AD IV 07/03/24 03:00 07/03/24 11:34 DC Thiamine HCl (Vitamin B-1) 100 mg DAILY PO 07/05/24 09:00 08/04/24 08:59 07/05/24 09:31 100 MG Vancomycin HCl (Vancomycin 1.25 Gm/250 ml Bag) 1.25 gm ONCE IV 07/03/24 11:30 07/03/24 11:33 DC DIAGNOSTICS / RADIOLOGY: [ REASON: right stump wound ORDERING PHYSICIAN: MÓNICA MOSQUEDA MD PROCEDURE: FT RT WWO - MR FOOT RIGHT WWO MR FOOT RIGHT WWO HISTORY: right stump wound COMPARISON: 04/15/2024 TECHNIQUE: MRI of the right foot was performed utilizing multiple pulse sequences in axial, coronal and sagittal planes. Patient given 19 mL of IV contrast through intravenous route. FINDINGS: Marilee signal intensity is seen of the visualized bony structure. No appreciable amount of joint effusion is seen. There is no identified deep soft tissue fluid collections suggest an abscess. No rupture or Achilles tendon is seen. The flexor and extensor tendons appear intact. There is increased signal demonstrated within the musculature and T2-weighted images and increased signal in the subcutaneous fat. There is change from prior forefoot and midfoot amputation. IMPRESSION: 1. Findings most suggestive of myositis cellulitis with no identified osteomyelitis ] ASSESSMENT: ASSESSMENT: Chest pain, POA Non-STEMI, currently on heparin drip, POA Elevated cardiac enzymes, POA Right inefcted foot wound, POA Cellulitis of right lower extremity. POA. Sepsis, POA Alcohol dependence, POA Leukocytosis, POA Uncontrolled Diabetes mellitius type2, POA Hypertension Hyperlipidemia Type 2 diabetes mellitus Right internal carotid artery stenosis History of CVA in April 2022 Grade 1 diastolic heart failure by 2D echo on 05/26/2023 with EF 40-45% Peripheral artery disease right lower extremity by ultrasound on 04/14/2024]] PLAN: nstemi: Cardiology recommended conservative management with IV heparin drip for 48 hours continue aspirin Plavix metoprolol and high-intensity statin. Continue telemetry monitoring. No invasive cardiac workup/treatment is indicated in view of bacteremia. Right foot wound, right ankle wound: Wound gram stain revealed Gram-negative rods and Gram-positive cocci in clusters, staph aureus Follow up on wound culture results Wound Care Service recommended Medihoney dressings. Continue Zosyn IV per ID recommendations. Sepsis, leukocytosis: Fluid resuscitation with lactated Ringer's 30 mL/kg. Continue antibiotic therapy with Zosyn. Reviewed patient's lactic acid, unremarkable. Blood culture results are negative Urinary tract infection, POA Reviewed patient's urinalysis which is mildly suggestive of UTI very few white blood cell count this could be a contaminated sample although squamous epithelial cells are rare. Differential diagnosis of UTI we will be covered by aforementioned antimicrobial therapy, Zosyn. Follow up on urine culture results Alcohol dependence: Counseled patient on alcohol cessation. Librium 25 mg by mouth every 8 hours As needed Ativan for alcohol withdrawal 1 mg every 4 hours Use CIWA-AR assessment tool Document EtOH withdrawal score Assess the need for seizure and aspiration precautions We will order thiamine preparation for the patient Diabetes mellitus type 2: Check hemoglobin A1c in a.m. Glucometer checks a.c. and HS 1800 ADA diet Humulin R sliding scale PAD Stable ulceration on the sole of the right lower extremity. Follow up on lower extremity Doppler results Hypertension, hyperlipidemia, right internal carotid artery stenosis, grade 1 diastolic heart failure Intake and output every shift. Daily weights Hydralazine 10 mg IV every 4 hours for systolic blood pressure greater than 160 mmHg GI prophylaxis, famotidine DVT prophylaxis, patient will be on heparin drip as mentioned above, as per Cardiology recommendation NORTH MERRITT MD Jul 05, 2024 15:01
--- NOTE | 2024-07-05 15:59 | PN ---
INFECTIOUS DISEASE PROGRESS NOTE Date of Service: Jul 05, 2024 SUBJECTIVE: This 72-year-old male patient is being seen today at bedside. Awake, alert and oriented x3. Denies chest pain, shortness of breath. No abdominal pain. No nausea or vomiting. Continues with wound care to right lower extremity. Would cultures were positive for Klebsiella Oxytoca, Morganella Morganii, and Staph Aureus, we will continue on zosyn. Blood cultures still pending final results, currently growing gram positive rods (preliminary). MRI negative for osteomyelitis, went over plan of care with patient. We will continue to follow. PHYSICAL EXAM EYES: Anicteric. Pupils equal and reactive. HENT: No oral thrush seen, moist Oral mucosa NECK: Supple, no JVD or thyromegaly. LUNGS: Good air entry. No rales, no rhonchi. CARDIOVASCULAR: S1, S2 regular. No murmur heard. ABDOMEN: Soft, non tender, bowel sounds present, no organomegaly CENTRAL NERVOUS SYSTEM: Awake, alert, oriented x 3. No focal deficits. SKIN: No rashes, no swelling. LYMPHATICS: No peripheral lymphadenopathy MUSCULOSKELETAL: No joint swelling, erythema or tenderness. EXTREMITIES: Ulcer involving the posterior aspect of the right lower leg. Ulc er involving the right stump. BACK: No deformity, no pressure ulcer. GENITOURINARY: No dysuria or hematuria Vital Sign (Last 12 Hours) 07/05/24 07/05/24 07/05/24 07/05/24 04:00 08:00 08:00 11:38 Temp 97.9 97.7 97.5 Pulse 80 80 76 Resp 20 16 16 B/P (MAP) 111/72 115/75 130/83 Pulse Ox 98 98 100 100 O2 Delivery Room Air Room Air Room Air* Room Air O2 Flow Rate 0 FiO2 21 21 21 Intake & Output (last 24hrs) 07/04/24 07/04/24 07/05/24 15:00 23:00 07:00 Intake Total 50.0 ml Output Total 400 ml 300 ml Balance -400 ml -250.0 ml LABS: Laboratory: Test 07/05/24 11:06 07/05/24 10:44 07/05/24 05:42 07/04/24 12:29 Range/Units Whole Blood Glucose 125 H 70-110 MG/DL Prothrombin Time 11.4 9.6-11.6 SEC Prothromb Time International Ratio 1.08 0.85-1.15 Activated Partial Thromboplast Time 55.3 H 26.3-35.5 SEC White Blood Count 4.1 L 4.8-10.8 K/uL Red Blood Count 3.20 L 4.50-6.20 MIL/uL Hemoglobin 9.9 L 14.0-18.0 g/dL Hematocrit 29.5 L 42-54 % Mean Corpuscular Volume 92.2 79-99 fL Mean Corpuscular Hemoglobin 30.9 27.0-33.0 pg Mean Corpuscular Hemoglobin Concent 33.6 32.0-36.0 g/dL Red Cell Distribution Width 13.1 11.0-15.5 % Platelet Count 141 130-400 K/uL Mean Platelet Volume 10.1 7.5-10.5 fL Immature Granulocyte % (Auto) 0.5 0-1 % Neutrophils (%) (Auto) 53.6 40.0-77.0 % Lymphocytes (%) (Auto) 34.3 21.0-51.0 % Monocytes (%) (Auto) 8.4 3.0-13.0 % Eosinophils (%) (Auto) 2.7 0.0-8.0 % Basophils (%) (Auto) 0.5 0.0-5.0 % Neutrophils # (Auto) 2.2 1.8-7.7 K/uL Lymphocytes # (Auto) 1.4 1.0-4.8 K/uL Monocytes # (Auto) 0.3 0.1-1.0 K/uL Eosinophils # (Auto) 0.11 0.00-0.70 K/uL Basophils # (Auto) 0.02 0.00-0.20 K/uL Absolute Immature Granulocyte (auto 0.02 0-1 K/uL Segmented Neutrophils % 58 40-70 % Lymphocytes % (Manual) 32 22-44 % Monocytes % (Manual) 8 2-9 % Eosinophils % (Manual) 2 1-6 % Nucleated Red Blood Cells 0.0 0.0-0.19 % Differential Comment MANUAL DIFFERENTIAL White Cell Morphology Comment Platelet Morphology Comment ADEQUATE Red Blood Cell Morphology See comments Sodium Level 139 136-145 mmol/L Potassium Level 3.5 3.5-5.1 mmol/L Chloride Level 107 101-111 mmol/L Carbon Dioxide Level 27 21-32 mmol/L Blood Urea Nitrogen 16 7-18 mg/dL Creatinine 1.1 0.5-1.3 mg/dL Glomerular Filtration Rate Calc 78 >90 mL/min Random Glucose 101 70-105 mg/dL Total Calcium 8.3 L 8.5-10.1 mg/dL Total Bilirubin 0.3 0.2-1.0 mg/dL Aspartate Amino Transf (AST/SGOT) 25 10-37 U/L Alanine Aminotransferase (ALT/SGPT) 20 12-78 U/L Alkaline Phosphatase 81 50-136 U/L Total Protein 6.4 6.0-8.3 g/dL Albumin 2.1 L 3.5-5.0 g/dL Troponin I High Sensitivity 1142 *H 4-75 ng/L Test 07/04/24 04:04 07/03/24 15:59 Range/Units Magnesium Level 2.10 1.80-2.40 mg/dL Erythrocyte Sedimentation Rate 60 H 0-20 MM/HR C-Reactive Protein, Quantitative 97.30 H 0.5-3.0 mg/L DIAGNOSTICS / RADIOLOGY: REASON: right stump wound ORDERING PHYSICIAN: MÓNICA MOSQUEDA MD PROCEDURE: FT RT WWO - MR FOOT RIGHT WWO MR FOOT RIGHT WWO HISTORY: right stump wound COMPARISON: 04/15/2024 TECHNIQUE: MRI of the right foot was performed utilizing multiple pulse sequences in axial, coronal and sagittal planes. Patient given 19 mL of IV contrast through intravenous route. FINDINGS: Marilee signal intensity is seen of the visualized bony structure. No appreciable amount of joint effusion is seen. There is no identified deep soft tissue fluid collections suggest an abscess. No rupture or Achilles tendon is seen. The flexor and extensor tendons appear intact. There is increased signal demonstrated within the musculature and T2-weighted images and increased signal in the subcutaneous fat. There is change from prior forefoot and midfoot amputation. IMPRESSION: 1. Findings most suggestive of myositis cellulitis with no identified osteomyelitis ASSESSMENT: * Possible angina pectoris. * Elevated troponin. * Right foot stump ulcer. * Right leg ulcer and cellulitis. * Obesity. * Chronic alcoholism. * polymicrobial wound infection PLAN: * Continue wound care. * Continue pain management. * Continue Zosyn. * Follow up cultures. * continue thiamine * Continue DVT prophylaxis * continue with pain management This case has been discussed with my supervising physician . The case has been discussed and agreed upon. COLIN RAMOS [facility] Jul 05, 2024 15:59
--- NOTE | 2024-07-05 16:49 | PN ---
This is a 59-year-old male with a history of coronary artery disease status post PCI to the OM2 05/30/2023 with residual 50-75% stenosis in the distal LAD treated medically, peripheral arterial disease, hypertension, hyperlipidemia, type 2 diabetes mellitus, multiple infections to the right lower extremity status post multiple amputations including Lisfranc amputation. He was recently treated for right foot osteomyelitis in May 2024. He was admitted 07/03/2024 with cellulitis and myositis of the right foot without osteomyelitis by MRI. CT of the chest was negative for PE. He had troponin elevation as follows: 883, 817, 893, 1243, 1142. He underwent arterial Doppler to the right lower extremity 07/04/2024 which shows triphasic waveforms to the distal right SFA with monophasic waveforms to the popliteal artery and posterior tibial artery. Blood culture 07/03/2024 shows Gram-positive rods in 1/2 bottles. Culture to right foot shows Klebsiella oxytoca, Morganella morganii and Staphylococcus aureus. White blood count 4.1, hemoglobin 9.9, hematocrit 29.5, platelets 141, creatinine 1.1, potassium 3.5. Most recent echocardiogram 05/26/2023 demonstrates an ejection fraction of 40- 45% with wall motion abnormalities, stage I diastolic dysfunction, E/a flow reversal noted, normal-sized left atrium without significant valvular abnormalities noted. He offers up no new cardiac complaints today. On exam, he is in no acute distress, regular rate and rhythm, lungs are clear to auscultation bilaterally, bandage in place to right lower extremity. Assessment: 1. Myositis and cellulitis of the right foot with recent treatment of osteomyelitis. 2. Peripheral arterial disease. 3. Bacteremia secondary to Gram-positive rods in 1/2 bottles. 4. Elevated troponin. 5. Ischemic cardiomyopathy. 6. Coronary artery disease status post PCI to the OM2 in May 2023 with residual LAD disease. Plan: 1. The arterial Doppler was reviewed by Dr. Vivar team. Peripheral angiogram with possible atherectomy, possible SALESFORCE DEVELOPER has been recommended. The procedure was discussed with the patient in detail and he wishes to proceed. 2. We will make NPO after midnight in anticipation of the procedure. Heparin will be held in the am. 3. Regarding the elevated troponin, we will not pursue any invasive cardiac workup/treatment in the setting of bacteremia because of risk of cardiac stents or bypass grafts becoming infected. 4. Continue medical therapy with aspirin 81 mg once daily, atorvastatin 80 mg once daily, clopidogrel 75 mg once daily and metoprolol tartrate 25 mg twice daily. Vitals/Labs Vital Signs Date Time Temp Pulse Resp B/P (MAP) Pulse Ox O2 Delivery O2 Flow Rate FiO2 07/05/24 16:00 98.1 81 18 123/82 98 Room Air 21 07/05/24 08:00 0 Laboratory Tests 07/05/24 05:42 ALIDA YOUNG Jul 05, 2024 16:49
[2024-07-05] MEDS: atorVAStatin 40 MG TABLET PO SCH (20:35)
--- NOTE | 2024-07-05 22:30 | CONS ---
INFECTIOUS DISEASE CONSULTATION NOTE DATE OF SERVICE: 07/03/2024 REQUESTING PHYSICIAN: Marcellus Reardon NP. REASON FOR CONSULTATION: Right foot ulcer. HISTORY OF PRESENT ILLNESS: This is a 59-year-old male with history of hypertension, diabetes mellitus, chronic alcoholism who presented to the emergency room with some chest pain. The patient also complained of right foot stump ulcer. The pain started after the patient had been binge drinking. Troponin was elevated at 893. EKG was unremarkable. The patient denied fever or chills. 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 CT angiogram of the chest shows no evidence of pulmonary embolism. The patient has been started on Zosyn. No cough, no hemoptysis or pleuritic pain. PAST MEDICAL HISTORY: * Hypertension. * Diabetes mellitus. * Right foot stump osteomyelitis. * Dyslipidemia. * Right internal carotid artery stenosis. * CVA with no deficits. * Peripheral vascular disease. PAST SURGICAL HISTORY: * Left great toe amputation. * Right foot transmetatarsal amputation. * Right foot Chopart amputation. * Colostomy placement and reversal. * Bowel resection. * Peripheral vascular disease. ALLERGIES: No known drug allergy. CURRENT MEDICATIONS: Include: * Zosyn. * . * . * Tylenol. * Zofran. SOCIAL HISTORY: The patient drinks. Denies tobacco or illicit drug use. Lives alone. FAMILY HISTORY: Positive for diabetes mellitus. REVIEW OF SYSTEMS: Greater than 10 systems were reviewed, negative except as documented above. PHYSICAL EXAMINATION: GENERAL: A middle-aged male, awake. VITAL SIGNS: Temperature 97.0, pulse 93, respiratory rate 18, BP 126/72. EYES: No icterus. Pupils are equal and reactive. HENT: No oral lesions seen. Moist oral mucosa. NECK: Supple. No JVD or thyromegaly. LUNGS: Good air entry. No rales, no rhonchi. CARDIOVASCULAR: S1, S2 regular. No murmur heard. ABDOMEN: Obese, soft, nontender. Bowel sounds present. CENTRAL NERVOUS SYSTEM: Awake, alert, oriented x 3. No focal deficits. SKIN: No rashes. No itchiness. LYMPHATIC: There is right inguinal lymphadenopathy. BACK: No deformity. No pressure ulcer. EXTREMITIES: Ulcer involving posterior aspect of the right lower leg. No drainage, wound looks clean. Ulcer involving plantar surface of the right foot stump. It is clean, granulating well. LABORATORY DATA: Troponin 893. Sodium 133, potassium 4.3, BUN 21, creatinine 1.0. WBC 9.0, hemoglobin 10.2, platelet 133. RADIOLOGY: CT angiogram of the chest shows no evidence of pulmonary embolism. ASSESSMENT: A 59-year-old male presenting with chest pain. CURRENT PROBLEMS: Include: * [id number] myocardial infarction. * Right foot diabetic ulcer. * Right lower extremity cellulitis. * Hypertension. * Obesity. * Anemia. * Chronic tobacco use. PLAN: * Continue wound care. * Follow up cultures. * Continue Zosyn. * Continue antihypertensive. * Continue antidiabetic. * Continue pain management. * Continue nutritional support. * The patient will be followed up closely. Thank you for allowing me to participate in the care of this patient. TID: [id number] RECEIPT: [id number]
[2024-07-06] VITALS (7 sets, daily range): BP systolic 121–148; BP diastolic 64–86; PULSE 78–90; RESP 18–20; TEMP 97.7–98.5; O2SAT 98
[2024-07-06 03:59] LABS: BASOPHILS # (AUTO) 0.02 K/uL (0.00-0.20); BASOPHILS % (AUTO) 0.5 % (0.0-5.0); EOSINOPHILS # (AUTO) 0.12 K/uL (0.00-0.70); EOSINOPHILS % (AUTO) 3.1 % (0.0-8.0); IMMATURE GRANULOCYTE ABSOLUTE 0.01 K/uL (0-1); LYMPHOCYTES # (AUTO) 1.6 K/uL (1.0-4.8); LYMPHOCYTES % (AUTO) 42.5 % (21.0-51.0); MEAN CORPUSCULAR HEMOGLOBIN 30.7 pg (27.0-33.0); MEAN CORPUSCULAR HGB CONC 33.1 g/dL (32.0-36.0); MEAN CORPUSCULAR VOLUME 92.7 fL (79-99); MONOCYTES # (AUTO) 0.3 K/uL (0.1-1.0); NEUTROPHILS # (AUTO) 1.8 K/uL (1.8-7.7); NEUTROPHILS % (AUTO) 45.6 % (40.0-77.0); PLATELET COUNT (AUTO) 157 K/uL (130-400); RED BLOOD CELL COUNT(AUTO) 3.13 MIL/uL (4.50-6.20); RED CELL DISTRIBUTION WIDTH 13.2 % (11.0-15.5); WHITE BLOOD COUNT (AUTO) 3.9 K/uL (4.8-10.8)
[2024-07-06 04:09] LABS: INR 1.05 (0.85-1.15); PROTHROMBIN TIME 11.1 SEC (9.6-11.6)
[2024-07-06 04:10] LABS: PARTIAL THROMBOPLASTIN TIME 52.2 SEC (26.3-35.5)
[2024-07-06 04:12] LABS: ALBUMIN 2.2 g/dL (3.5-5.0); BILIRUBIN,TOTAL 0.3 mg/dL (0.2-1.0); CREATININE 1.1 mg/dL (0.5-1.3); TOTAL PROTEIN, SERUM 6.6 g/dL (6.0-8.3)
--- NOTE | 2024-07-06 09:29 | PN ---
1. Myositis and cellulitis of the right foot with recent treatment of osteomyelitis. 2. Peripheral arterial disease. 3. Bacteremia secondary to Gram-positive rods in 1/2 bottles. 4. Elevated troponin. 5. Ischemic cardiomyopathy. 6. Coronary artery disease status post PCI to the OM2 in May 2023 with residual LAD disease. Patient would like to proceed with peripheral angiogram and peripheral intervention but none of us is available to do the procedure today because I am scheduled in office a 1/[address] Vivar has more procedures then he can finish today. Patient appears stable and verbalizes acceptance of the plan to be fed today, perform angiography and intervention tomorrow. Vitals/Labs Vital Signs Date Time Temp Pulse Resp B/P (MAP) Pulse Ox O2 Delivery O2 Flow Rate FiO2 07/06/24 08:01 98.2 78 19 125/79 98 07/06/24 04:00 Room Air 07/05/24 20:00 0 21 Laboratory Tests 07/06/24 03:10 Medications Current Medications Aspirin 325 mg ONCE ONCE PO Last administered on 07/03/24at 00:50; Start 07/03/24 at 00:30; Stop 07/03/24 at 00:31; Status DC Iohexol 75 ml STK-MED ONCE IV; Start 07/03/24 at 00:40; Stop 07/03/24 at 00:44; Status DC Sodium Chloride 2,000 ml @ 0 mls/hr ONCE ONCE IV Last administered on 07/03/24at 01:37; Start 07/03/24 at 01:30; Stop 07/03/24 at 01:31; Status DC Piperacillin Sod/ Tazobactam Sod 3.375 gm Q8H IV Last administered on 07/03/24at 01:37; Start 07/03/24 at 01:30; Stop 07/03/24 at 03:03; Status DC Acetaminophen 1,000 mg ONCE ONCE PO Last administered on 07/03/24at 01:38; Start 07/03/24 at 02:00; Stop 07/03/24 at 02:01; Status DC Chlordiazepoxide HCl 25 mg Q8H PO Last administered on 07/05/24at 18:47; Start 07/03/24 at 03:00; Stop 07/10/24 at 02:59 Lorazepam 1 mg Q4H PRN IVP; Start 07/03/24 at 03:00; Stop 07/10/24 at 02:59 Pharmacy Profile Note 1 each PROTOCOL PRN MISC; Start 07/03/24 at 03:00; Stop 07/10/24 at 02:59 Heparin Sodium (Porcine) *calculation based on ACTUAL B... AD PRN IV Last administered on 07/03/24at 03:41; Start 07/03/24 at 04:00; Stop 07/03/24 at 03:51; Status DC Heparin Sodium/ Dextrose 250 ml @ 0 mls/hr Q6H IV Last administered on 07/05/24at 03:07; Start 07/03/24 at 04:00; Stop 08/02/24 at 16:00 Piperacillin Sod/ Tazobactam Sod 3.375 gm Q8H IVPB Last administered on 07/06/24at 09:08; Start 07/03/24 at 09:30; Stop 07/13/24 at 09:29 Sodium Chloride 50 ml AD IV; Start 07/03/24 at 03:00; Stop 07/03/24 at 11:34; Status DC Lactated Ringer's 2,448 ml @ 816 mls/hr ONCE ONCE IV; Start 07/03/24 at 03:00; Stop 07/03/24 at 05:59; Status DC Ondansetron HCl 4 mg Q6H PRN IV; Start 07/03/24 at 03:00; Stop 08/02/24 at 02:59 Nitroglycerin 0.5 inch Q8H TD Last administered on 07/06/24at 03:24; Start 07/03/24 at 03:00; Stop 08/02/24 at 02:59 Morphine Sulfate 2 mg Q4H PRN IVP; Start 07/03/24 at 03:30; Stop 07/10/24 at 03:29 Hydralazine HCl 10 mg Q6H PRN IV; Start 07/03/24 at 03:00; Stop 08/02/24 at 02:59 Famotidine 20 mg DAILY PO Last administered on 07/05/24at 09:32; Start 07/03/24 at 09:00; Stop 08/02/24 at 08:59 Acetaminophen 650 mg Q6H PRN PO; Start 07/03/24 at 03:00; Stop 08/02/24 at 02:59 Heparin Sodium (Porcine) 6,000 unit ONCE ONCE IJ; Start 07/03/24 at 03:30; Stop 07/03/24 at 03:31; Status DC Vancomycin HCl 1.25 gm ONCE IV; Start 07/03/24 at 11:30; Stop 07/03/24 at 11:33; Status DC Potassium Chloride 100 ml @ 50 mls/hr AD PRN IV; Start 07/03/24 at 12:00; Stop 08/02/24 at 11:59 Magnesium Sulfate 50 ml @ 0 mls/hr PROTOCOL PRN IV; Start 07/03/24 at 12:00; Stop 08/02/24 at 11:59 Leptospermum Honey 1 APPL DAILY TP Last administered on 07/06/24at 09:08; Start 07/03/24 at 14:00; Stop 08/02/24 at 13:59 Aspirin 81 mg DAILY PO Last administered on 07/05/24at 09:31; Start 07/04/24 at 09:00; Stop 08/03/24 at 08:59 Atorvastatin Calcium 40 mg HS PO Last administered on 07/04/24at 20:22; Start 07/03/24 at 21:00; Stop 07/05/24 at 15:02; Status DC Clopidogrel Bisulfate 75 mg DAILY PO Last administered on 07/05/24at 09:31; Start 07/04/24 at 09:00; Stop 08/03/24 at 08:59 Metoprolol Tartrate 25 mg BID PO Last administered on 07/05/24at 20:35; Start 07/03/24 at 21:00; Stop 08/02/24 at 20:59 Pregabalin 75 mg BID PO Last administered on 07/05/24at 20:35; Start 07/03/24 at 21:00; Stop 08/02/24 at 20:59 Miscellaneous Medication 15 units ACBKFST SQ; Start 07/04/24 at 07:30; Stop 07/03/24 at 14:11; Status DC Insulin Glargine 15 units BID SQ Last administered on 07/06/24at 09:13; Start 07/03/24 at 21:00; Stop 08/02/24 at 20:59 Miscellaneous Medication 50 mg BID PRN PO; Start 07/03/24 at 14:00; Stop 07/03/24 at 14:09; Status DC Potassium Chloride 100 ml @ 100 mls/hr AD PRN IV; Start 07/04/24 at 13:00; Stop 07/04/24 at 12:43; Status DC Potassium Chloride 20 meq AD PRN PO; Start 07/04/24 at 13:00; Stop 08/03/24 at 12:59 Potassium Chloride 20 meq AD PRN PO Last administered on 07/05/24at 17:10; Start 07/04/24 at 13:00; Stop 08/03/24 at 12:59 Gadoterate Meglumine 10 mmol STK-MED ONCE IV; Start 07/04/24 at 14:16; Stop 07/04/24 at 14:16; Status DC Thiamine HCl 100 mg DAILY PO Last administered on 07/05/24at 09:31; Start 07/05/24 at 09:00; Stop 08/04/24 at 08:59 Atorvastatin Calcium 80 mg HS PO Last administered on 07/05/24at 20:35; Start 07/05/24 at 21:00; Stop 08/04/24 at 20:59 MARGIE PEREZ MD Jul 06, 2024 09:29
--- NOTE | 2024-07-06 16:18 | PN ---
INFECTIOUS DISEASE PROGRESS NOTE Date of Service: Jul 06, 2024 SUBJECTIVE: This is a 72-year-old male patient was seen and examined at bedside in room 430. Patient is awake, alert and oriented x3. The right foot wound culture results came back positive for Acinetobacter baumannii, Klebsiella Oxytoca, Morganella Morganii, and Staphylococcus aureus. Will continue on zosyn. Preliminary Blood culture results growing gram positive rods. Department Manager following and patient is scheduled for a peripheral angiogram for tomorrow. We will continue to jose samuels. PHYSICAL EXAM EYES: Anicteric. Pupils equal and reactive. HENT: No oral thrush seen, moist Oral mucosa. NECK: Supple, no JVD or thyromegaly. LUNGS: Good air entry. No rales, no rhonchi. CARDIOVASCULAR: S1, S2 regular. No murmur heard. ABDOMEN: Soft, non tender, bowel sounds present, no organomegaly. CENTRAL NERVOUS SYSTEM: Awake, alert, oriented x 3. SKIN: No rashes, no swelling. LYMPHATICS: No peripheral lymphadenopathy. MUSCULOSKELETAL: No joint swelling, erythema or tenderness. 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 Ulcer involving the posterior aspect of the right lower leg. Ulcer involving the right stump. BACK: No deformity, no pressure ulcer. GENITOURINARY: No dysuria or hematuria. Vital Sign (Last 12 Hours) 07/06/24 07/06/24 08:01 12:00 Temp 98.2 98.4 Pulse 78 83 Resp 19 20 B/P (MAP) 125/79 141/81 Pulse Ox 98 100 Intake & Output (last 24hrs) 07/05/24 07/05/24 07/06/24 15:00 23:00 07:00 Intake Total 1800 ml Output Total 200 ml 800 ml Balance 1600 ml -800 ml LABS: Laboratory: Test 07/06/24 12:07 07/06/24 03:10 07/05/24 05:42 Range/Units Whole Blood Glucose 102 70-110 MG/DL White Blood Count 3.9 L 4.8-10.8 K/uL Red Blood Count 3.13 L 4.50-6.20 MIL/uL Hemoglobin 9.6 L 14.0-18.0 g/dL Hematocrit 29.0 L 42-54 % Mean Corpuscular Volume 92.7 79-99 fL Mean Corpuscular Hemoglobin 30.7 27.0-33.0 pg Mean Corpuscular Hemoglobin Concent 33.1 32.0-36.0 g/dL Red Cell Distribution Width 13.2 11.0-15.5 % Platelet Count 157 130-400 K/uL Mean Platelet Volume 10.9 H 7.5-10.5 fL Immature Granulocyte % (Auto) 0.3 0-1 % Neutrophils (%) (Auto) 45.6 40.0-77.0 % Lymphocytes (%) (Auto) 42.5 21.0-51.0 % Monocytes (%) (Auto) 8.0 3.0-13.0 % Eosinophils (%) (Auto) 3.1 0.0-8.0 % Basophils (%) (Auto) 0.5 0.0-5.0 % Neutrophils # (Auto) 1.8 1.8-7.7 K/uL Lymphocytes # (Auto) 1.6 1.0-4.8 K/uL Monocytes # (Auto) 0.3 0.1-1.0 K/uL Eosinophils # (Auto) 0.12 0.00-0.70 K/uL Basophils # (Auto) 0.02 0.00-0.20 K/uL Absolute Immature Granulocyte (auto 0.01 0-1 K/uL Nucleated Red Blood Cells 0.0 0.0-0.19 % Prothrombin Time 11.1 9.6-11.6 SEC Prothromb Time International Ratio 1.05 0.85-1.15 Activated Partial Thromboplast Time 52.2 H 26.3-35.5 SEC Sodium Level 143 136-145 mmol/L Potassium Level 4.0 3.5-5.1 mmol/L Chloride Level 109 101-111 mmol/L Carbon Dioxide Level 29 21-32 mmol/L Blood Urea Nitrogen 18 7-18 mg/dL Creatinine 1.1 0.5-1.3 mg/dL Glomerular Filtration Rate Calc 78 >90 mL/min Random Glucose 125 H 70-105 mg/dL Total Calcium 8.5 8.5-10.1 mg/dL Total Bilirubin 0.3 0.2-1.0 mg/dL Aspartate Amino Transf (AST/SGOT) 35 10-37 U/L Alanine Aminotransferase (ALT/SGPT) 27 # 12-78 U/L Alkaline Phosphatase 111 # 50-136 U/L Total Protein 6.6 6.0-8.3 g/dL Albumin 2.2 L 3.5-5.0 g/dL Segmented Neutrophils % 58 40-70 % Lymphocytes % (Manual) 32 22-44 % Monocytes % (Manual) 8 2-9 % Eosinophils % (Manual) 2 1-6 % Differential Comment MANUAL DIFFERENTIAL White Cell Morphology Comment Platelet Morphology Comment ADEQUATE Red Blood Cell Morphology See comments ASSESSMENT: Right foot stump ulcer. Right lower extremity cellulitis. Right foot with polymicrobial infection. Possible angina pectoris. Elevated troponin. Diabetes mellitus. Obesity. PLAN: Continue Zosyn IV every 8 hours. Continue GI prophylaxis. Continue antiplatelets. Continue wound care. Continue pain management. Continue thiamine. Continue monitoring glucose levels. Cardiology has evaluated patient and pending a peripheral angiogram for tomorrow. This case was reviewed and discussed with my supervising physician and the above assessment and plan was formulated and agreed upon. ATTESTATION BY PHYSICIAN I have seen and examined the patient. I reviewed the documentation, medical decision making, and treatment plan as noted by the mid-level provider above. I agree with the findings and plan of care. MÓNICA MOSQUEDA MD, MIRTA L PHYSICIAN SCRIBE Jul 06, 2024 16:18
--- NOTE | 2024-07-06 16:31 | PN ---
[facility] PROGRESS NOTE Date of Service: Jul 06, 2024 Time of Service: 16:31 SUBJECTIVE: Mr. Patrick is a 59-year-old male that was seen and examined today on 07/03/2024. Patient is a good historian of personal health Patient states that he came to the emergency department with a chief complaint of chest pain. Onset was 07/02/2024 at 4:30 p.m.. Location is to left lower chest along the midclavicular line. Duration is on and off. Character is described as pressure. Symptoms are aggravated with, " walking around the bar. "Patient states he was at a local bar consuming alcohol prior to coming to the emergency department. There was no alleviating factors. Patient reports associated right foot pain. Today in the emergency department WBCs 12.2, left shift neutrophils 82.2%, glucose 184 mg/dL, high sensitivity troponin 183, BNP 249, urinalysis is unremarkable, urine toxicology is unremarkable, alcohol level is 25. Emergency room physician recommended that patient be admitted with a diagnosis of chest pain. Additionally patient presented with a heart rate of 112, combined with patient's WBCs of 12.2 and identified suspected source of infection being right lower extremity wounds patient met clinical sepsis criteria. 07/03/2024 The patient was examined at bedside. The patient states resolution of his chest pain completely. There is wound in his right lower extremity. His temperature is fluctuating and has slight fever. The patient appears very weak fatigued and tired. He was on prolonged courses of antibiotics for a longer duration. He is in mild distress due to pain from his foot. Coordinating care with the Wound python consultant cardiology team and Infectious Disease team. He was recently hospitalized for prolonged period for his right lower extremity wound infection. Discuss the goal of care with the patient. Evaluating and ruling out all causes of his chest pain. 07/04/2024 10AM Patient is seen and examined at the bedside. He denies chest pain, fever, chills. He complains of right foot pain. Blood culture results are negative. He is on heparin drip in view of NSTEMI. Chest x-ray and CT PE resulted in no acute findings. Urinalysis positive for leukocyte esterase. Troponin trended up from 800-1243. Right wound aspirate gram stain resulted in gram negative rods and Gram-positive cocci in clusters Staph aureus. 07/05/24: Patient seen and examined in the morning denies any new complaints. Denies chest pain denies shortness of breath denies fever or chills. MRI shows no osteomyelitis only cellulitis changes. Blood culture is growing Gram-positive meghna in one of the bottle final sensitivity and identification is still pending. Cardiology has already seen the patient and recommended conservative management with heparin drip for48 hours aspirin Plavix and high- intensity statin. Heparin drip will be stopped today July 06, 2024 the patient was examined at bedside, he had a history of ischemic cardiomyopathy, peripheral artery disease, chronic right foot infection with previous osteomyelitis, recent bacteremia. He is currently admitted for management of myositis and cellulitis of the right foot, peripheral artery disease and evaluation of elevated troponin. The patient remains hemodynamically stable, denies new complaints and verbalizes understanding of the treatment plan. No overnight events or complaints. No new chest pain, dyspnea, dizziness or palpitations. Heparin will be held in the a.m. aerobic active Bactrim baumannii culture positive. And blood cultures Gram- positive rods detected in 1-2 bottles pending speciation and sensitivities. And aerobic culture for Klebsiella oxytoca, Morganella morganii, staph aureus is pos itive. REVIEW OF SYSTEMS CONSTITUTIONAL: Denies fevers, chills, or night sweats. No unintentional weight loss reported. NEUROLOGICAL: Denies headache, amaurosis fugax, motor weakness, sensory deficit, vertigo/spinning sensation, gait abnormalities, or tremors. ENT: No hearing loss, otalgia, otorrhea, rhinitis, rhinorrhea, hoarseness, or sore throat. CARDIOVASCULAR: Denies any exertional angina, dyspnea on exertion, orthopnea, paroxysmal nocturnal dyspnea, palpitations, life-threatening arrhythmias, claudication. PULMONARY: Denies any shortness of breath, cough, phlegm/sputum, hemoptysis, pleuritic chest pain. SLEEP: Denies morning headaches, daytime somnolence or napping. Denies difficulty falling asleep, staying asleep, waking from sleep. Denies knowledge of snoring. GASTROINTESTINAL: Denies any type of dysphagia to either liquids or solids. Denies nausea, vomiting, pyrosis, early satiety, abdominal pain, diarrhea, con stipation, or changes in stool consistency or caliber. Denies coffee-ground emesis, hematemesis, hematochezia, or melanotic stools. GENITOURINARY: Denies frequency, urgency, nocturia, hematuria or incontinence (Storage/Irritative symptoms.) Low urinary stream, straining to void, urinary intermittency or hesitancy, splitting of the voiding stream, terminal dribbling. ENDOCRINOLOGIC: Denies polyuria, polydipsia, polyphagia or heat/cold intolerances. HEMATOLOGIC: Denies thrombophilia/previous clots, or coagulopathy/bleeding disorders. ONCOLOGIC: Denies personal history of malignancy. DERMATOLOGIC: Denies rashes or pruritus. PSYCHIATRIC: Denies any suicidal or homicidal ideation. Denies hallucinations. PHYSICAL EXAM GENERAL APPEARANCE: The patient is awake, alert, and oriented, in no acute card iopulmonary distress. NEUROLOGICAL: Cranial nerves II-XII grossly intact. Motor is 5/5 in bilateral upper and lower extremities proximal to distal. No sensory deficits. HEENT: Face is symmetric. Pupils are equal and reactive. Extraocular movements are intact. NECK: Supple. No JVD. No thyromegaly. No submental, submandibular, pre- /postauricular, occipital or supraclavicular lymphadenopathy. CHEST: Normal chest expansion. No Telemetry. LUNGS: Absence of any rales, rhonchi or any wheezing. CARDIOVASCULAR: Regular. S1 and S2 normal. No appreciable rubs, murmurs or gallops. ABDOMEN: Soft, nontender, and nondistended. There is no rebound, voluntary guarding, or rigidity. : Deferred. No Abrams. EXTREMITIES: Right foot with amputation dressing is clean and intact. SKIN: No skin breakdown. Vital Signs (last 8hr) Date Time Temp Pulse Resp B/P (MAP) Pulse Ox O2 Delivery O2 Flow Rate FiO2 07/06/24 12:00 98.4 83 20 141/81 100 LABS: Laboratory: Test 07/06/24 12:07 07/06/24 03:10 07/05/24 05:42 Range/Units Whole Blood Glucose 102 70-110 MG/DL White Blood Count 3.9 L 4.8-10.8 K/uL Red Blood Count 3.13 L 4.50-6.20 MIL/uL Hemoglobin 9.6 L 14.0-18.0 g/dL Hematocrit 29.0 L 42-54 % Mean Corpuscular Volume 92.7 79-99 fL Mean Corpuscular Hemoglobin 30.7 27.0-33.0 pg Mean Corpuscular Hemoglobin Concent 33.1 32.0-36.0 g/dL Red Cell Distribution Width 13.2 11.0-15.5 % Platelet Count 157 130-400 K/uL Mean Platelet Volume 10.9 H 7.5-10.5 fL Immature Granulocyte % (Auto) 0.3 0-1 % Neutrophils (%) (Auto) 45.6 40.0-77.0 % Lymphocytes (%) (Auto) 42.5 21.0-51.0 % Monocytes (%) (Auto) 8.0 3.0-13.0 % Eosinophils (%) (Auto) 3.1 0.0-8.0 % Basophils (%) (Auto) 0.5 0.0-5.0 % Neutrophils # (Auto) 1.8 1.8-7.7 K/uL Lymphocytes # (Auto) 1.6 1.0-4.8 K/uL Monocytes # (Auto) 0.3 0.1-1.0 K/uL Eosinophils # (Auto) 0.12 0.00-0.70 K/uL Basophils # (Auto) 0.02 0.00-0.20 K/uL Absolute Immature Granulocyte (auto 0.01 0-1 K/uL Nucleated Red Blood Cells 0.0 0.0-0.19 % Prothrombin Time 11.1 9.6-11.6 SEC Prothromb Time International Ratio 1.05 0.85-1.15 Activated Partial Thromboplast Time 52.2 H 26.3-35.5 SEC Sodium Level 143 136-145 mmol/L Potassium Level 4.0 3.5-5.1 mmol/L Chloride Level 109 101-111 mmol/L Carbon Dioxide Level 29 21-32 mmol/L Blood Urea Nitrogen 18 7-18 mg/dL Creatinine 1.1 0.5-1.3 mg/dL Glomerular Filtration Rate Calc 78 >90 mL/min Random Glucose 125 H 70-105 mg/dL Total Calcium 8.5 8.5-10.1 mg/dL Total Bilirubin 0.3 0.2-1.0 mg/dL Aspartate Amino Transf (AST/SGOT) 35 10-37 U/L Alanine Aminotransferase (ALT/SGPT) 27 # 12-78 U/L Alkaline Phosphatase 111 # 50-136 U/L Total Protein 6.6 6.0-8.3 g/dL Albumin 2.2 L 3.5-5.0 g/dL Segmented Neutrophils % 58 40-70 % Lymphocytes % (Manual) 32 22-44 % Monocytes % (Manual) 8 2-9 % Eosinophils % (Manual) 2 1-6 % Differential Comment MANUAL DIFFERENTIAL White Cell Morphology Comment Platelet Morphology Comment ADEQUATE Red Blood Cell Morphology See comments Current Medications Medications (Trade) Dose Ordered Sig/Jl Route PRN Reason Start Time Stop Time Status Last Admin Dose Admin Acetaminophen (TYLenol 325MG TAB) 650 mg Q6H PRN PO TEMPERATURE GREATER THAN 101.5 07/03/24 03:00 08/02/24 02:59 Aspirin (Aspirin 81mg Ec Tab) 81 mg DAILY PO 07/04/24 09:00 08/03/24 08:59 07/05/24 09:31 Atorvastatin Calcium (LIPItor 40MG) 40 mg HS PO 07/03/24 21:00 07/05/24 15:02 DC 07/04/24 20:22 Atorvastatin Calcium (LIPItor 40MG) 80 mg HS PO 07/05/24 21:00 08/04/24 20:59 07/05/24 20:35 Chlordiazepoxide HCl (LIBrium 25 MG CAP) 25 mg Q8H PO 07/03/24 03:00 07/10/24 02:59 07/06/24 13:35 Clopidogrel Bisulfate (plaVIX 75MG) 75 mg DAILY PO 07/04/24 09:00 08/03/24 08:59 07/05/24 09:31 Famotidine (Pepcid 20mg Tab) 20 mg DAILY PO 07/03/24 09:00 08/02/24 08:59 07/05/24 09:32 Heparin Sodium (Porcine) (HEParin 5,000 UNIT VIAL) *calculation based on ACTUAL B... AD PRN IV HEPARIN PROTOCOL 07/03/24 04:00 07/03/24 03:51 DC 07/03/24 03:41 Heparin Sodium/ Dextrose 250 ml @ 0 mls/hr Q6H IV 07/03/24 04:00 08/02/24 16:00 07/06/24 13:35 Hydralazine HCl (APRESOLine 20MG INJ) 10 mg Q6H PRN IV For:SBP above 160;DBP above 90 07/03/24 03:00 08/02/24 02:59 Insulin Glargine (LANtus 100 UNITS/ML 10 ML VIAL) 15 units BID SQ 07/03/24 21:00 08/02/24 20:59 07/06/24 09:13 Leptospermum Honey (Medihoney) 1 APPL DAILY TP 07/03/24 14:00 08/02/24 13:59 07/06/24 09:08 Lorazepam (AtiVAN) 1 mg Q4H PRN IVP ALCOHOL WITHDRAWAL PROTOCOL 07/03/24 03:00 07/10/24 02:59 Magnesium Sulfate 50 ml @ 0 mls/hr PROTOCOL PRN IV Electrolyte abnormality 07/03/24 12:00 08/02/24 11:59 Metoprolol Tartrate (loprESSOR) 25 mg BID PO 07/03/24 21:00 08/02/24 20:59 07/05/24 20:35 Miscellaneous Medication (Insulin Degludec (Tresiba Flextouch U-100)) 15 units ACBKFST SQ 07/04/24 07:30 07/03/24 14:11 DC Miscellaneous Medication ([Tramadol ] ) 50 mg BID PRN PO P610 07/03/24 14:00 07/03/24 14:09 DC Morphine Sulfate (morPHINE 2MG SYG) 2 mg Q4H PRN IVP SEVERE PAIN (7-10) 07/03/24 03:30 07/10/24 03:29 Nitroglycerin (Nitroglycerin 1gm Oint) 0.5 inch Q8H TD 07/03/24 03:00 08/02/24 02:59 07/06/24 13:36 Ondansetron HCl (zoFRAN 4MG INJ) 4 mg Q6H PRN IV NAUSEA/VOMITING 07/03/24 03:00 08/02/24 02:59 Pharmacy Profile Note (Pharmacy Communication) 1 each PROTOCOL PRN MISC ETOH Withdrawal Score changes 07/03/24 03:00 07/10/24 02:59 Piperacillin Sod/ Tazobactam Sod (Zosyn 3.375gm+NS 50ml) 3.375 gm Q8H IV 07/03/24 01:30 07/03/24 03:03 DC 07/03/24 01:37 Piperacillin Sod/ Tazobactam Sod (Zosyn 3.375gm+NS 50ml) 3.375 gm Q8H IVPB 07/03/24 09:30 07/13/24 09:29 07/06/24 09:08 Potassium Chloride 100 ml @ 50 mls/hr AD PRN IV POTASSIUM PROTOCOL 07/03/24 12:00 08/02/24 11:59 Potassium Chloride 100 ml @ 100 mls/hr AD PRN IV POTASSIUM PROTOCOL 07/04/24 13:00 07/04/24 12:43 DC Potassium Chloride (K-Dur/Klor-Con 20meq) 20 meq AD PRN PO POTASSIUM PROTOCOL 07/04/24 13:00 08/03/24 12:59 07/05/24 17:10 Potassium Chloride (KCl 10% Elixir 20meq/15ml) 20 meq AD PRN PO POTASSIUM PROTOCOL 07/04/24 13:00 08/03/24 12:59 Pregabalin ([id number]) 75 mg BID PO 07/03/24 21:00 08/02/24 20:59 07/05/24 20:35 Sodium Chloride (NS 50ml) 50 ml AD IV 07/03/24 03:00 07/03/24 11:34 DC Thiamine HCl (Vitamin B-1) 100 mg DAILY PO 07/05/24 09:00 08/04/24 08:59 07/05/24 09:31 Vancomycin HCl (Vancomycin 1.25 Gm/250 ml Bag) 1.25 gm ONCE IV 07/03/24 11:30 07/03/24 11:33 DC PATIENT: SAVANA PATRICK MR#: [id number] : 1965 SEX: M AGE: 59 LOCATION: [facility] ORDER STATUS: REG ER REPORT#: [id number] SERVICE REASON: Chest pain, Tachycardia ORDERING PHYSICIAN: AGUSTINA LEONARD MD PROCEDURE: CHES PE - CT CHEST PE PROTOCOL WWO CONT CT CHEST PE PROTOCOL WWO CONT HISTORY: Chest pain COMPARISON: None TECHNIQUE: CT angiography of the chest was performed. The study was performed using angiographic technique with maximum intensity projection reconstruction images. Patient was given 75 cc of Omnipaque through intravenous route. FINDINGS: No CT evidence of filling defect is seen to suggest pulmonary embolus. Coronary arterial calcifications are seen. No evidence of parenchymal disease is seen. No CT evidence of pleural effusion or pericardial effusion is seen. The heart is enlarged. No evidence of adrenal mass is seen. Fatty changes of the liver are noted. Degenerative changes of the spine are noted. IMPRESSION: 1. No CT evidence of acute pulmonary embolus is seen. PATIENT: SAVANA PATRICK MR#: [id number] : 1965 SEX: M AGE: 59 LOCATION: [facility] ORDER 1250 STATUS: ADM IN REPORT#: [id number] SERVICE 1247 REASON: right stump wound ORDERING PHYSICIAN: MÓNICA MOSQUEDA MD PROCEDURE: FT RT WWO - MR FOOT RIGHT WWO MR FOOT RIGHT WWO HISTORY: right stump wound COMPARISON: 04/15/2024 TECHNIQUE: MRI of the right foot was performed utilizing multiple pulse sequences in axial, coronal and sagittal planes. Patient given 19 mL of IV contrast through intravenous route. FINDINGS: Marilee signal intensity is seen of the visualized bony structure. No appreciable amount of joint effusion is seen. There is no identified deep soft tissue fluid collections suggest an abscess. No rupture or Achilles tendon is seen. The flexor and extensor tendons appear intact. There is increased signal demonstrated within the musculature and T2-weighted images and increased signal in the subcutaneous fat. There is change from prior forefoot and midfoot amputation. IMPRESSION: 1. Findings most suggestive of myositis cellulitis with no identified osteomyelitis DICTATED BY: RJ YI DO DATE: 07/04/242045 DIAGNOSTICS / RADIOLOGY: [ ] PATIENT: SAVANA PATRICK MR#: [id number] : 1965 SEX: M AGE: 59 LOCATION: [facility] ORDER 15 STATUS: ADM IN REPORT#: [id number] SERVICE 11 REASON: PAD ORDERING PHYSICIAN: STEPHEN MAURER MD PROCEDURE: ART U LE - US ARTERIAL UNILA LOW EXT DUPL US ARTERIAL UNILA LOW EXT DUPL HISTORY: Peripheral vascular disease with prior right foot amputation. COMPARISON: None TECHNIQUE: Right lower extremity arterial Doppler ultrasound study was performed. FINDINGS: There is triphasic waveforms to the distal superficial femoral artery with monophasic waveforms in the popliteal artery and posterior tibial artery. On the right, the peak systolic velocity of the common femoral artery is 113 cm/s, the proximal femoral artery is 87 cm/s, the mid femoral artery is 107 cm/s, the distal femoral artery is 88 cm/s, the popliteal artery is 88 cm/s, the posterior tibial artery artery is 38 cm/s. IMPRESSION: Patent outflow to the level of the distal superficial femoral artery with likely mild to moderately diseased popliteal and posterior tibial artery runoff. DICTATED BY: RJ YI DO DATE: 07/04/241921 ELECTRONICALLY SIGNED BY: RJ YI DO DATE: 07/04/241926 ASSESSMENT: ASSESSMENT: Chest pain, POA Non-STEMI, currently on heparin drip, POA Elevated cardiac enzymes, POA Right inefcted foot wound, POA Cellulitis of right lower extremity. POA. anemia / POA Sepsis, POA Alcohol dependence, POA Leukocytosis, POA Uncontrolled Diabetes mellitius type2, POA Hypertension Hyperlipidemia Type 2 diabetes mellitus Right internal carotid artery stenosis History of CVA in April 2022 Grade 1 diastolic heart failure by 2D echo on 05/26/2023 with EF 40-45% Peripheral artery disease right lower extremity by ultrasound on 04/14/2024]] Myositis /right foot POA PLAN: peripheral angiogram with possible atherectomy with FINANCIAL ASSISTANCE ADVISOR tomorrow NPO after midnight hold heparin in the a.m. monitor urine output and renal function. Optimize hydration status prior to annual Right foot wound, right ankle wound: Wound gram stain revealed Gram-negative rods and Gram-positive cocci in clusters, staph aureus monitor for signs of worsening infection. Repeat WBC count and inflammatory markers in the am Follow up on wound culture results Wound Care Service recommended Medihoney dressings. Continue Zosyn IV per ID recommendations. Sepsis, leukocytosis: Fluid resuscitation with lactated Ringer's 30 mL/kg. Continue antibiotic therapy with Zosyn. Reviewed patient's lactic acid, unremarkable. continue blood cultures to assess clearance. ID team following for targeted therapy. Avoid invasive cardiac workup elevated troponins likely secondary to sepsis or demand ischemia. Urinary tract infection, POA Reviewed patient's urinalysis which is mildly suggestive of UTI very few white blood cell count this could be a contaminated sample although squamous epithelial cells are rare. Differential diagnosis of UTI we will be covered by aforementioned antimicrobial therapy, Zosyn. Follow up on urine culture results repeat CBC tomorrow consider iron supplementation if anemia persists discontinue heparin in the a.m. tomorrow. Monitor APTT in the morning. Consider resuming DVT prophylaxis postprocedure if indicated. Continue aspirin 81 mg daily, atorvastatin 80 mg daily, clopidogrel 75 mg daily and metoprolol tartrate 25 mg b.i.d.. Alcohol dependence: Counseled patient on alcohol cessation. Librium 25 mg by mouth every 8 hours As needed Ativan for alcohol withdrawal 1 mg every 4 hours Use CIUT-AR assessment tool Document EtOH withdrawal score Assess the need for seizure and aspiration precautions We will order thiamine preparation for the patient Diabetes mellitus type 2: Check hemoglobin A1c in a.m. Glucometer checks a.c. and HS 1800 ADA diet Humulin R sliding scale PAD Stable ulceration on the sole of the right lower extremity. Peripheral angiogram with possible atherectomy and FINANCIAL ASSISTANCE ADVISOR to Follow up on lower extremity Doppler results Hypertension, hyperlipidemia, right internal carotid artery stenosis, grade 1 diastolic heart failure Intake and output every shift. Daily weights Hydralazine 10 mg IV every 4 hours for systolic blood pressure greater than 160 mmHg GI prophylaxis, famotidine DVT prophylaxis, patient will be on heparin drip as mentioned above, as per Cardiology recommendation ATTESTATION BY PHYSICIAN I have seen and examined the patient. I reviewed the documentation, medical decision making, and treatment plan as noted by the resident above. I agree with the findings and plan of care. Mejia Martinez MD, RAGHAVA R MD Jul 06, 2024 16:31
[2024-07-07] VITALS (11 sets, daily range): BP systolic 126–163; BP diastolic 73–93; PULSE 67–88; RESP 15–18; TEMP 97.7–98; O2SAT 98–99
[2024-07-07 01:31] LABS: BASOPHILS # (AUTO) 0.02 K/uL (0.00-0.20); BASOPHILS % (AUTO) 0.4 % (0.0-5.0); EOSINOPHILS # (AUTO) 0.13 K/uL (0.00-0.70); EOSINOPHILS % (AUTO) 2.6 % (0.0-8.0); IMMATURE GRANULOCYTE ABSOLUTE 0.02 K/uL (0-1); LYMPHOCYTES # (AUTO) 2.3 K/uL (1.0-4.8); LYMPHOCYTES % (AUTO) 45.2 % (21.0-51.0); MEAN CORPUSCULAR HEMOGLOBIN 31.5 pg (27.0-33.0); MEAN CORPUSCULAR HGB CONC 34.5 g/dL (32.0-36.0); MEAN CORPUSCULAR VOLUME 91.5 fL (79-99); MONOCYTES # (AUTO) 0.4 K/uL (0.1-1.0); MONOCYTES % (AUTO) 8.4 % (3.0-13.0); NEUTROPHILS # (AUTO) 2.2 K/uL (1.8-7.7); PLATELET COUNT (AUTO) 155 K/uL (130-400); RED BLOOD CELL COUNT(AUTO) 3.17 MIL/uL (4.50-6.20)
[2024-07-07 01:44] LABS: ALBUMIN 2.2 g/dL (3.5-5.0); BILIRUBIN,TOTAL 0.3 mg/dL (0.2-1.0); CREATININE 1.2 mg/dL (0.5-1.3); MAGNESIUM 1.7 mg/dL (1.80-2.40); POTASSIUM 3.6 mmol/L (3.5-5.1); TOTAL PROTEIN, SERUM 6.5 g/dL (6.0-8.3)
[2024-07-07 03:37] LABS: BAND NEUTROPHILS % (MANUAL) 4 % (0-2); BASOPHILS % (MANUAL) 1 % (0-2); EOSINOPHILS % (MANUAL) 1 % (1-6); LYMPHOCYTES % (MANUAL) 39 % (22-44); MAN.DIFF COMMENT-IMPRESSION MANUAL DIFFERENTIAL; MONOCYTES % (MANUAL) 14 % (2-9); SEGMENTED NEUTROPHILS % 41 % (40-70); TOTAL CELLS COUNTED 100
[2024-07-07 03:38] LABS: WBC MORPHOLOGY CONSISTENT W/DIFF
[2024-07-07] MEDS: MAGNESIUM 2GM PREMIX 50ML 50 ML IV PRN (10:22)
--- NOTE | 2024-07-07 12:04 | PN ---
[facility] CARDIOLOGY PROGRESS NOTE Cardiology progress note dictated for Cornelius Muhammad MD Date Patient Seen: Jul 07, 2024 Interval History: The patient is scheduled to have a peripheral angiogram today. The patient denies chest pain, chest pressure, palpitations, dizziness, shortness of breath, or uncontrolled bilateral lower extremity discomfort. Physical Examination: GENERAL: No acute distress. HEAD: Normal with no signs of head trauma. EYES: PERRLA, EOMI, conjunctiva and sclera normal. NECK: Supple without JVD. There is no tenderness, lymphadenopathy, or masses. No thyromegaly. Normal carotid upstrokes without bruits. LUNGS: Clear breath sounds bilaterally. No wheezes, or rhonchi. HEART: Normal rate and rhythm. Normal S1 and S2 without murmurs, gallop or rub. VASC: Peripheral pulses +2 bilaterally to BUE. EXT: No clubbing, cyanosis or edema. RLE Lisfranc amputation with dressing in place. NEURO: Awake, alert, and oriented x3. No focal neurological deficits noted. Laboratory: Hematology Labs: Test 07/07/24 01:18 Range/Units White Blood Count 5.0 # 4.8-10.8 K/uL Red Blood Count 3.17 L 4.50-6.20 MIL/uL Hemoglobin 10.0 L 14.0-18.0 g/dL Hematocrit 29.0 L 42-54 % Mean Corpuscular Volume 91.5 79-99 fL Mean Corpuscular Hemoglobin 31.5 27.0-33.0 pg Mean Corpuscular Hemoglobin Concent 34.5 32.0-36.0 g/dL Red Cell Distribution Width 13.0 11.0-15.5 % Platelet Count 155 130-400 K/uL Mean Platelet Volume 10.4 7.5-10.5 fL Immature Granulocyte % (Auto) 0.4 0-1 % Neutrophils (%) (Auto) 43.0 40.0-77.0 % Lymphocytes (%) (Auto) 45.2 21.0-51.0 % Monocytes (%) (Auto) 8.4 3.0-13.0 % Eosinophils (%) (Auto) 2.6 0.0-8.0 % Basophils (%) (Auto) 0.4 0.0-5.0 % Neutrophils # (Auto) 2.2 1.8-7.7 K/uL Lymphocytes # (Auto) 2.3 1.0-4.8 K/uL Monocytes # (Auto) 0.4 0.1-1.0 K/uL Eosinophils # (Auto) 0.13 0.00-0.70 K/uL Basophils # (Auto) 0.02 0.00-0.20 K/uL Absolute Immature Granulocyte (auto 0.02 0-1 K/uL Segmented Neutrophils % 41 40-70 % Band Neutrophils % 4 H 0-2 % Lymphocytes % (Manual) 39 22-44 % Monocytes % (Manual) 14 H 2-9 % Eosinophils % (Manual) 1 1-6 % Basophils % (Manual) 1 0-2 % Nucleated Red Blood Cells 0.0 0.0-0.19 % Differential Comment MANUAL DIFFERENTIAL White Cell Morphology Comment CONSISTENT W/DIFF Platelet Morphology Comment See comments Red Blood Cell Morphology ANISO 1+ Chemistry Labs: Test 07/07/24 05:11 07/07/24 01:18 Range/Units Whole Blood Glucose 86 70-110 MG/DL Sodium Level 143 136-145 mmol/L Potassium Level 3.6 3.5-5.1 mmol/L Chloride Level 107 101-111 mmol/L Carbon Dioxide Level 31 21-32 mmol/L Blood Urea Nitrogen 15 7-18 mg/dL Creatinine 1.2 0.5-1.3 mg/dL Glomerular Filtration Rate Calc 71 >90 mL/min Random Glucose 96 70-105 mg/dL Total Calcium 8.6 8.5-10.1 mg/dL Magnesium Level 1.70 L 1.80-2.40 mg/dL Total Bilirubin 0.3 0.2-1.0 mg/dL Aspartate Amino Transf (AST/SGOT) 36 10-37 U/L Alanine Aminotransferase (ALT/SGPT) 29 12-78 U/L Alkaline Phosphatase 83 # 50-136 U/L Total Protein 6.5 6.0-8.3 g/dL Albumin 2.2 L 3.5-5.0 g/dL Coagulation Labs: Test 07/07/24 07:14 07/06/24 03:10 Range/Units Activated Partial Thromboplast Time 33.0 # 26.3-35.5 SEC Prothrombin Time 11.1 9.6-11.6 SEC Prothromb Time International Ratio 1.05 0.85-1.15 Diagnostics / Radiology: Impression and Plan: 1. Myositis and cellulitis of the right foot with recent treatment of os teomyelitis. 2. Peripheral arterial disease. 3. Bacteremia secondary to Gram-positive rods in 1/2 bottles. 4. Elevated troponin. 5. Ischemic cardiomyopathy. 6. Coronary artery disease status post PCI to the OM2 in May 2023 with residual LAD disease. Peripheral arterial disease -Continue Aspirin 81 mg daily, atorvastatin 80 mg nightly, and clopidogrel 75 mg daily -The patient is to have a peripheral angiogram with possible peripheral intervention today if schedule allows. Elevated troponin CAD status post PCI with ANEL placement to the OM2 (Medtronic resolute mitzi 3.0 x 18 mm and 2.5 x 22 mm) done on 05/30/2023, Residual 50-75% stenosis, in the distal LAD treated conservatively with medical therapy High sensitivity troponin I: 883, 817, 893, 1243, 1142 -We recommend treating his myocardial infarction conservatively, with goal- directed medical therapy which includes Aspirin 81 mg daily, Atorvastatin 80 mg nightly, Clopidogrel 75 mg daily, and Metoprolol tartrate 25 mg b.i.d. -Pursuing an invasive cardiac workup/treatment is contraindicated in the setting of bacteremia, because of the risk of cardiac stents and bypass graft becoming infected BIANCA BAKER C++ QUANT DEVELOPER Jul 07, 2024 12:04
--- NOTE | 2024-07-07 12:10 | PN ---
[facility] PROGRESS NOTE Date of Service: Jul 07, 2024 Time of Service: 11:42 SUBJECTIVE: Mr. Patrick is a 59-year-old male that was seen and examined today on 07/03/2024. Patient is a good historian of personal health Patient states that he came to the emergency department with a chief complaint of chest pain. Onset was 07/02/2024 at 4:30 p.m.. Location is to left lower chest along the midclavicular line. Duration is on and off. Character is described as pressure. Symptoms are aggravated with, " walking around the bar. "Patient states he was at a local bar consuming alcohol prior to coming to the emergency department. There was no alleviating factors. Patient reports associated right foot pain. Today in the emergency department WBCs 12.2, left shift neutrophils 82.2%, glucose 184 mg/dL, high sensitivity troponin 183, BNP 249, urinalysis is unremarkable, urine toxicology is unremarkable, alcohol level is 25. Emergency room physician recommended that patient be admitted with a diagnosis of chest pain. Additionally patient presented with a heart rate of 112, combined with patient's WBCs of 12.2 and identified suspected source of infection being right lower extremity wounds patient met clinical sepsis criteria. 07/03/2024 The patient was examined at bedside. The patient states resolution of his chest pain completely. There is wound in his right lower extremity. His temperature is fluctuating and has slight fever. The patient appears very weak fatigued and tired. He was on prolonged courses of antibiotics for a longer duration. He is in mild distress due to pain from his foot. Coordinating care with the Wound senior product consultant cardiology team and Infectious Disease team. He was recently hospitalized for prolonged period for his right lower extremity wound infection. Discuss the goal of care with the patient. Evaluating and ruling out all causes of his chest pain. 07/04/2024 10AM Patient is seen and examined at the bedside. He denies chest pain, fever, chills. He complains of right foot pain. Blood culture results are negative. He is on heparin drip in view of NSTEMI. Chest x-ray and CT PE resulted in no acute findings. Urinalysis positive for leukocyte esterase. Troponin trended up from 800-1243. Right wound aspirate gram stain resulted in gram negative rods and Gram-positive cocci in clusters Staph aureus. 07/05/24: Patient seen and examined in the morning denies any new complaints. Denies chest pain denies shortness of breath denies fever or chills. MRI shows no osteomyelitis only cellulitis changes. Blood culture is growing Gram-positive meghna in one of the bottle final sensitivity and identification is still pending. Cardiology has already seen the patient and recommended conservative management with heparin drip for48 hours aspirin Plavix and high- intensity statin. Heparin drip will be stopped today July 06, 2024 the patient was examined at bedside, he had a history of ischemic cardiomyopathy, peripheral artery disease, chronic right foot infection with previous osteomyelitis, recent bacteremia. He is currently admitted for management of myositis and cellulitis of the right foot, peripheral artery disease and evaluation of elevated troponin. The patient remains hemodynamically stable, denies new complaints and verbalizes understanding of the treatment plan. No overnight events or complaints. No new chest pain, dyspnea, dizziness or palpitations. Heparin will be held in the a.m. aerobic active Bactrim baumannii culture positive. And blood cultures Gram- positive rods detected in 1-2 bottles pending speciation and sensitivities. And aerobic culture for Klebsiella oxytoca, Morganella morganii, staph aureus is pos itive. 07/07/24 patient was evaluated in the room this morning, he is very somnolent, he is on CIWA protocol taking Librium. He is in and out of consciousness. Apparently patient drinks four beers daily. Patient is scheduled for angio today with Dr. Muhammad REVIEW OF SYSTEMS CONSTITUTIONAL: Denies fevers, chills, or night sweats. No unintentional weight loss reported. NEUROLOGICAL: Denies headache, amaurosis fugax, motor weakness, sensory deficit, vertigo/spinning sensation, gait abnormalities, or tremors. ENT: No hearing loss, otalgia, otorrhea, rhinitis, rhinorrhea, hoarseness, or sore throat. CARDIOVASCULAR: Denies any exertional angina, dyspnea on exertion, orthopnea, paroxysmal nocturnal dyspnea, palpitations, life-threatening arrhythmias, cla udication. PULMONARY: Denies any shortness of breath, cough, phlegm/sputum, hemoptysis, pleuritic chest pain. SLEEP: Denies morning headaches, daytime somnolence or napping. Denies difficulty falling asleep, staying asleep, waking from sleep. Denies knowledge of snoring. GASTROINTESTINAL: Denies any type of dysphagia to either liquids or solids. Denies nausea, vomiting, pyrosis, early satiety, abdominal pain, diarrhea, constipation, or changes in stool consistency or caliber. Denies coffee-ground emesis, hematemesis, hematochezia, or melanotic stools. GENITOURINARY: Denies frequency, urgency, nocturia, hematuria or incontinence (Storage/Irritative symptoms.) Low urinary stream, straining to void, urinary intermittency or hesitancy, splitting of the voiding stream, terminal dribbling. ENDOCRINOLOGIC: Denies polyuria, polydipsia, polyphagia or heat/cold intolerances. HEMATOLOGIC: Denies thrombophilia/previous clots, or coagulopathy/bleeding disorders. ONCOLOGIC: Denies personal history of malignancy. DERMATOLOGIC: Denies rashes or pruritus. PSYCHIATRIC: Denies any suicidal or homicidal ideation. Denies hallucinations. PHYSICAL EXAM GENERAL APPEARANCE: The patient is awake, alert, and oriented, in no acute cardiopulmonary distress. NEUROLOGICAL: Cranial nerves II-XII grossly intact. Motor is 5/5 in bilateral upper and lower extremities proximal to distal. No sensory deficits. HEENT: Face is symmetric. Pupils are equal and reactive. Extraocular movements are intact. NECK: Supple. No JVD. No thyromegaly. No submental, submandibular, pre- /postauricular, occipital or supraclavicular lymphadenopathy. CHEST: Normal chest expansion. No Telemetry. LUNGS: Absence of any rales, rhonchi or any wheezing. CARDIOVASCULAR: Regular. S1 and S2 normal. No appreciable rubs, murmurs or gallops. ABDOMEN: Soft, nontender, and nondistended. There is no rebound, voluntary guarding, or rigidity. : Deferred. No Abrams. EXTREMITIES: Right foot with amputation dressing is clean and intact. SKIN: No skin breakdown. Vital Signs (last 8hr) Date Time Temp Pulse Resp B/P (MAP) Pulse Ox O2 Delivery O2 Flow Rate FiO2 07/07/24 08:00 99 Room Air* 0 21 07/07/24 08:00 97.9 78 16 136/75 99 Room Air 0.0 07/07/24 03:53 97.7 67 18 126/73 99 Room Air LABS: Laboratory: Test 07/07/24 07:14 07/07/24 05:11 07/07/24 01:18 07/06/24 03:10 Range/Units Activated Partial Thromboplast Time 33.0 # 26.3-35.5 SEC Whole Blood Glucose 86 70-110 MG/DL White Blood Count 5.0 # 4.8-10.8 K/uL Red Blood Count 3.17 L 4.50-6.20 MIL/uL Hemoglobin 10.0 L 14.0-18.0 g/dL Hematocrit 29.0 L 42-54 % Mean Corpuscular Volume 91.5 79-99 fL Mean Corpuscular Hemoglobin 31.5 27.0-33.0 pg Mean Corpuscular Hemoglobin Concent 34.5 32.0-36.0 g/dL Red Cell Distribution Width 13.0 11.0-15.5 % Platelet Count 155 130-400 K/uL Mean Platelet Volume 10.4 7.5-10.5 fL Immature Granulocyte % (Auto) 0.4 0-1 % Neutrophils (%) (Auto) 43.0 40.0-77.0 % Lymphocytes (%) (Auto) 45.2 21.0-51.0 % Monocytes (%) (Auto) 8.4 3.0-13.0 % Eosinophils (%) (Auto) 2.6 0.0-8.0 % Basophils (%) (Auto) 0.4 0.0-5.0 % Neutrophils # (Auto) 2.2 1.8-7.7 K/uL Lymphocytes # (Auto) 2.3 1.0-4.8 K/uL Monocytes # (Auto) 0.4 0.1-1.0 K/uL Eosinophils # (Auto) 0.13 0.00-0.70 K/uL Basophils # (Auto) 0.02 0.00-0.20 K/uL Absolute Immature Granulocyte (auto 0.02 0-1 K/uL Segmented Neutrophils % 41 40-70 % Band Neutrophils % 4 H 0-2 % Lymphocytes % (Manual) 39 22-44 % Monocytes % (Manual) 14 H 2-9 % Eosinophils % (Manual) 1 1-6 % Basophils % (Manual) 1 0-2 % Nucleated Red Blood Cells 0.0 0.0-0.19 % Differential Comment MANUAL DIFFERENTIAL White Cell Morphology Comment CONSISTENT W/DIFF Platelet Morphology Comment See comments Red Blood Cell Morphology ANISO 1+ Sodium Level 143 136-145 mmol/L Potassium Level 3.6 3.5-5.1 mmol/L Chloride Level 107 101-111 mmol/L Carbon Dioxide Level 31 21-32 mmol/L Blood Urea Nitrogen 15 7-18 mg/dL Creatinine 1.2 0.5-1.3 mg/dL Glomerular Filtration Rate Calc 71 >90 mL/min Random Glucose 96 70-105 mg/dL Total Calcium 8.6 8.5-10.1 mg/dL Magnesium Level 1.70 L 1.80-2.40 mg/dL Total Bilirubin 0.3 0.2-1.0 mg/dL Aspartate Amino Transf (AST/SGOT) 36 10-37 U/L Alanine Aminotransferase (ALT/SGPT) 29 12-78 U/L Alkaline Phosphatase 83 # 50-136 U/L Total Protein 6.5 6.0-8.3 g/dL Albumin 2.2 L 3.5-5.0 g/dL Prothrombin Time 11.1 9.6-11.6 SEC Prothromb Time International Ratio 1.05 0.85-1.15 Current Medications Medications (Trade) Dose Ordered Sig/Jl Route PRN Reason Start Time Stop Time Status Last Admin Dose Admin Acetaminophen (TYLenol 325MG TAB) 650 mg Q6H PRN PO TEMPERATURE GREATER THAN 101.5 07/03/24 03:00 08/02/24 02:59 Aspirin (Aspirin 81mg Ec Tab) 81 mg DAILY PO 07/04/24 09:00 08/03/24 08:59 07/05/24 09:31 81 MG Atorvastatin Calcium (LIPItor 40MG) 40 mg HS PO 07/03/24 21:00 07/05/24 15:02 DC 07/04/24 20:22 40 MG Atorvastatin Calcium (LIPItor 40MG) 80 mg HS PO 07/05/24 21:00 08/04/24 20:59 07/06/24 20:21 80 MG Chlordiazepoxide HCl (LIBrium 25 MG CAP) 25 mg Q8H PO 07/03/24 03:00 07/10/24 02:59 07/06/24 20:21 25 MG Clopidogrel Bisulfate (plaVIX 75MG) 75 mg DAILY PO 07/04/24 09:00 08/03/24 08:59 07/05/24 09:31 75 MG Famotidine (Pepcid 20mg Tab) 20 mg DAILY PO 07/03/24 09:00 08/02/24 08:59 07/05/24 09:32 20 MG Heparin Sodium (Porcine) (HEParin 5,000 UNIT VIAL) *calculation based on ACTUAL B... AD PRN IV HEPARIN PROTOCOL 07/03/24 04:00 07/03/24 03:51 DC 07/03/24 03:41 6,000 UNIT Heparin Sodium/ Dextrose 250 ml @ 0 mls/hr Q6H IV 07/03/24 04:00 08/02/24 16:00 07/06/24 21:28 10.34 MLS/HR Hydralazine HCl (APRESOLine 20MG INJ) 10 mg Q6H PRN IV For:SBP above 160;DBP above 90 07/03/24 03:00 08/02/24 02:59 Insulin Glargine (LANtus 100 UNITS/ML 10 ML VIAL) 15 units BID SQ 07/03/24 21:00 08/02/24 20:59 07/06/24 20:38 15 UNITS Leptospermum Honey (Medihoney) 1 APPL DAILY TP 07/03/24 14:00 08/02/24 13:59 07/07/24 08:41 1 APPL Lorazepam (AtiVAN) 1 mg Q4H PRN IVP ALCOHOL WITHDRAWAL PROTOCOL 07/03/24 03:00 07/10/24 02:59 Magnesium Sulfate 50 ml @ 0 mls/hr PROTOCOL PRN IV Electrolyte abnormality 07/03/24 12:00 08/02/24 11:59 07/07/24 10:22 20 MLS/HR Metoprolol Tartrate (loprESSOR) 25 mg BID PO 07/03/24 21:00 08/02/24 20:59 07/06/24 20:21 25 MG Miscellaneous Medication (Insulin Degludec (Tresiba Flextouch U-100)) 15 units ACBKFST SQ 07/04/24 07:30 07/03/24 14:11 DC Miscellaneous Medication ([Tramadol ] ) 50 mg BID PRN PO P610 07/03/24 14:00 07/03/24 14:09 DC Morphine Sulfate (morPHINE 2MG SYG) 2 mg Q4H PRN IVP SEVERE PAIN (7-10) 07/03/24 03:30 07/10/24 03:29 Nitroglycerin (Nitroglycerin 1gm Oint) 0.5 inch Q8H TD 07/03/24 03:00 08/02/24 02:59 07/07/24 11:40 0.5 INCH Ondansetron HCl (zoFRAN 4MG INJ) 4 mg Q6H PRN IV NAUSEA/VOMITING 07/03/24 03:00 08/02/24 02:59 Pharmacy Profile Note (Pharmacy Communication) 1 each PROTOCOL PRN MISC ETOH Withdrawal Score changes 07/03/24 03:00 07/10/24 02:59 Piperacillin Sod/ Tazobactam Sod (Zosyn 3.375gm+NS 50ml) 3.375 gm Q8H IV 07/03/24 01:30 07/03/24 03:03 DC 07/03/24 01:37 3.375 GM Piperacillin Sod/ Tazobactam Sod (Zosyn 3.375gm+NS 50ml) 3.375 gm Q8H IVPB 07/03/24 09:30 07/13/24 09:29 07/07/24 08:40 3.375 GM Potassium Chloride 100 ml @ 50 mls/hr AD PRN IV POTASSIUM PROTOCOL 07/03/24 12:00 08/02/24 11:59 Potassium Chloride 100 ml @ 100 mls/hr AD PRN IV POTASSIUM PROTOCOL 07/04/24 13:00 07/04/24 12:43 DC Potassium Chloride (K-Dur/Klor-Con 20meq) 20 meq AD PRN PO POTASSIUM PROTOCOL 07/04/24 13:00 08/03/24 12:59 07/05/24 17:10 20 MEQ Potassium Chloride (KCl 10% Elixir 20meq/15ml) 20 meq AD PRN PO POTASSIUM PROTOCOL 07/04/24 13:00 08/03/24 12:59 Pregabalin ([id number]) 75 mg BID PO 07/03/24 21:00 08/02/24 20:59 07/06/24 20:21 75 MG Sodium Chloride (NS 50ml) 50 ml AD IV 07/03/24 03:00 07/03/24 11:34 DC Thiamine HCl (Vitamin B-1) 100 mg DAILY PO 07/05/24 09:00 08/04/24 08:59 07/05/24 09:31 100 MG Vancomycin HCl (Vancomycin 1.25 Gm/250 ml Bag) 1.25 gm ONCE IV 07/03/24 11:30 07/03/24 11:33 DC DIAGNOSTICS / RADIOLOGY: [ ] ASSESSMENT: ASSESSMENT: Chest pain, POA Non-STEMI, currently on heparin drip, POA Elevated cardiac enzymes, POA Right inefcted foot wound, POA Cellulitis of right lower extremity. POA. anemia / POA Sepsis, POA Alcohol dependence, POA Leukocytosis, POA Uncontrolled Diabetes mellitius type2, POA Hypertension Hyperlipidemia Type 2 diabetes mellitus Right internal carotid artery stenosis History of CVA in April 2022 Grade 1 diastolic heart failure by 2D echo on 05/26/2023 with EF 40-45% Peripheral artery disease right lower extremity by ultrasound on 04/14/2024]] Myositis /right foot POA PLAN: peripheral angiogram with possible atherectomy with VP TALENT MANAGEMENT scheduled today with Dr. Continue NPO hold heparin in the a.m. monitor urine output and renal function. Optimize hydration status prior to annual Right foot wound, right ankle wound: Wound gram stain revealed Gram-negative rods and Gram-positive cocci in clusters, staph aureus monitor for signs of worsening infection. Repeat WBC count and inflammatory markers in the am Follow up on wound culture results Wound Care Service recommended Medihoney dressings. Continue Zosyn IV per ID recommendations. Sepsis, leukocytosis: Fluid resuscitation with lactated Ringer's 30 mL/kg. Continue antibiotic therapy with Zosyn. Reviewed patient's lactic acid, unremarkable. continue blood cultures to assess clearance. ID team following for targeted therapy. Avoid invasive cardiac workup elevated troponins likely secondary to sepsis or demand ischemia. Urinary tract infection, POA Reviewed patient's urinalysis which is mildly suggestive of UTI very few white blood cell count this could be a contaminated sample although squamous epithelial cells are rare. Differential diagnosis of UTI we will be covered by aforementioned antimicrobial therapy, Zosyn. Follow up on urine culture results repeat CBC tomorrow consider iron supplementation if anemia persists discontinue heparin in the a.m. tomorrow. Monitor APTT in the morning. Consider resuming DVT prophylaxis postprocedure if indicated. Continue aspirin 81 mg daily, atorvastatin 80 mg daily, clopidogrel 75 mg daily and metoprolol tartrate 25 mg b.i.d.. Alcohol dependence: Counseled patient on alcohol cessation. Librium 25 mg by mouth every 8 hours, we will monitor titrate As needed Ativan for alcohol withdrawal 1 mg every 4 hours Use CIWA-AR assessment tool Document EtOH withdrawal score Assess the need for seizure and aspiration precautions We will order thiamine preparation for the patient Diabetes mellitus type 2: Check hemoglobin A1c in a.m. Glucometer checks a.c. and HS 1800 ADA diet Humulin R sliding scale PAD Stable ulceration on the sole of the right lower extremity. Peripheral angiogram with possible atherectomy and VP TALENT MANAGEMENT to Follow up on lower extremity Doppler results Hypertension, hyperlipidemia, right internal carotid artery stenosis, grade 1 diastolic heart failure Intake and output every shift. Daily weights Hydralazine 10 mg IV every 4 hours for systolic blood pressure greater than 160 mmHg GI prophylaxis, famotidine DVT prophylaxis, patient will be on heparin drip as mentioned above, as per Cardiology recommendation ATTESTATION BY PHYSICIAN I have seen and examined the patient. I reviewed the documentation, medical decision making, and treatment plan as noted by the mid-level provider above. I agree with the findings and plan of care. JANNET BLAKELY MD, [facility] Jul 07, 2024 12:10
[2024-07-07 12:24] LABS: ABG BASE EXCESS -0.6 mmol/L (-2.0-3.0); ABG HCO3 23.9 mmol/L (21.0-28.0); ABG PCO2 39 mmHg (35-48); ABG PH 7.406 (7.350-7.450); PO2, ARTERIAL BG 65.2 mmHg (83.0-108.0); VENT MODE, BG RA (ROOM AIR)
[2024-07-07] MEDS ORDERED: IODIXANOL 320 MG/ML 100 ML VIAL ONE (12:52)
[2024-07-07] MEDS ORDERED: LIDOCAINE HCL 400MG/20ML VIAL ONE (12:52)
[2024-07-07] MEDS ORDERED: HEParin-NS 1,000 UNIT/500 ML 1,000 ML IV ONE (12:53)
[2024-07-07] MEDS ORDERED: NITROGLYCERIN 50MG VIAL ONE (12:53)
[2024-07-07] MEDS ORDERED: FENTanyl CITRate PF 50 MCG/1 ML 2ML VIAL ONE (13:00)
[2024-07-07] MEDS ORDERED: PHARMACY COMMUNICATION MISC SCH (13:00)
[2024-07-07] MEDS ORDERED: MIDAZOLAM HCL 1 MG/ML 2ML VIAL ONE (13:00)
[2024-07-07] MEDS ORDERED: COMPOUND IV MISC 1 EACH IVSOLN MISC PRN (13:30)
[2024-07-07] MEDS ORDERED: COMPOUND IV REFRIGERATED 1 EACH IVSOLN MISC PRN (13:30)
[2024-07-07] MEDS ORDERED: HEParin 10,000 UNIT/10ML (1,000 UNIT/ML) VIAL ONE (13:32)
[2024-07-07] MEDS ORDERED: ASPIRIN 325MG EC TAB PO ONE (13:53)
[2024-07-07] MEDS ORDERED: cloPIDOgrel 300MG TAB ONE (13:54)
--- NOTE | 2024-07-07 14:04 | PRN ---
ABDOMINAL AORTOGRAM WITH PELVIC RUNOFF, FOLLOWED BY RIGHT LOWER EXTREMITY DIGITAL SUBTRACTION ARTERIOGRAM AND DCB-PERSONAL COUNSELOR DISTAL RIGHT SUPERFICIAL FEMORAL INDICATION: ILIANA STAGE SIX PERIPHERAL ARTERIAL DISEASE TECHNIQUE: Patient was brought to the lab in a fasting state after informed consent and sedated 1 mg Versed and 50 mcg fentanyl. Under local anesthesia with 1% lidocaine in the left common femoral artery was punctured anteriorly using micropuncture technique with fluoroscopic and ultrasound guidance. A six Singaporean sheath was inserted. An Omni flush catheter was positioned in the distal abdominal aorta and an abdominal aortogram with pelvic runoff was obtained by digital subtraction angiography. The Omni flush was repositioned in the right common femoral and right lower extremity cine angiogram was obtained. We then exchanged for a 90 cm six Singaporean sheath which was positioned in the proximal popliteal and right infrapopliteal digital subtraction arteriography was carried out. We then withdrew the sheath, monitoring for pressure gradient relief, which identified at the distal SFA where there was a 50% radiolucent stenosis with a 40 mm gradient. 5200 units aqueous heparin was administered intravenously along with 300 mg clopidogrel and 325 mg aspirin. We then parked the distal end of the sheath in the mid SFA and wire the lesion with the advantage Glidewire, then dilated with a 40 x 6 mm Goowytronic DCB. Results were inspected angiographically and the apparatus was removed. Hemostasis was obtained by use of Perclose with excellent hemostasis and no complications. Results: There is minimal calcification in the distal aorta and proximal right iliac and there is calcification in the wall of the right superficial femoral but the only stenoses RA 25% ostial stenosis of the left profunda, a 50% radiolucent stenosis of the distal right SFA in Pradeep's canal, and a 30% narrowing of the right popliteal. In the infrapopliteal vessels, there was a 90% stenosis in the distal 3rd of the peroneal. There is a total occlusion of the anterior tibial on the ankle. The right posterior tibial supplies the foot, which has undergone partial amputation previously. Interventional Results: the 50% radiolucent distal right SFA stenosis is reduced to a 0% residual with smooth intima and brisk runoff. Conclusions: Successful intervention on the distal right SFA stenosis. MARGIE PEREZ MD Jul 07, 2024 14:04
[2024-07-07] MEDS: TIGECYCLINE 100 MG in 0.9%NACL 100ML 100 ML IV ONE (15:14)
[2024-07-07] MEDS: 0.9%NACL 1000ML 1,000 ML IV SCH (15:15)
[2024-07-07] MEDS: PoTASSium chl 10% ELIXIR 20MEQ 20 MEQ/15 ML UDCUP PO PRN (15:38)
--- NOTE | 2024-07-07 15:48 | PN ---
INFECTIOUS DISEASE PROGRESS NOTE Date of Service: Jul 07, 2024 SUBJECTIVE: This is a 72-year-old male patient who was seen and examined at bedside in room 430. Patient is awake, alert and oriented x 3. Patient is afebrile, temperature is 97.7. Patient is scheduled for a peripheral angiogram for today. The right foot wound with polymicrobial infection, Acinetobacter baumannii, Klebsiella Oxytoca, Morganella Morganii, and Staphylococcus aureus. Will start Tygacil 100 mg IV x1 then 50 mg IV every 12 hours and continue zosyn. Preliminary Blood culture results growing gram positive rods. We will continue to follow patient's care. PHYSICAL EXAM EYES: Anicteric. Pupils equal and reactive. HENT: No oral thrush seen, moist Oral mucosa. NECK: Supple, no JVD or thyromegaly. LUNGS: Good air entry. No rales, no rhonchi. CARDIOVASCULAR: S1, S2 regular. No murmur heard. ABDOMEN: Soft, non tender, bowel sounds present, no organomegaly. CENTRAL NERVOUS SYSTEM: Awake, alert, oriented x 3. SKIN: No rashes, no swelling. LYMPHATICS: No peripheral lymphadenopathy. MUSCULOSKELETAL: No joint swelling, erythema or tenderness. 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 Ulcer involving the posterior as pect of the right lower leg. Ulcer involving the right stump. BACK: No deformity, no pressure ulcer. GENITOURINARY: No dysuria or hematuria. Vital Sign (Last 12 Hours) 07/07/24 07/07/24 07/07/24 07/07/24 03:53 08:00 08:00 11:57 Temp 97.7 97.9 97.7 Pulse 67 78 75 Resp 18 16 15 B/P (MAP) 126/73 136/75 136/74 Pulse Ox 99 99 99 99 O2 Delivery Room Air Room Air Room Air* Room Air O2 Flow Rate 0.0 0 0.0 FiO2 21 Intake & Output (last 24hrs) 07/06/24 07/06/24 07/07/24 15:00 23:00 07:00 Intake Total 0 ml Output Total 700 ml Balance -700 ml LABS: Laboratory: Test 07/07/24 15:24 07/07/24 12:23 07/07/24 07:14 07/07/24 01:18 Range/Units Whole Blood Glucose 66 L 70-110 MG/DL Blood Gas Specimen Type Arterial Arterial Blood pH 7.406 7.350-7.450 Arterial Blood Partial Pressure CO2 39 35-48 mmHg Arterial Blood Partial Pressure O2 65.2 L 83.0-108.0 mmHg Arterial Blood HCO3 23.9 21.0-28.0 mmol/L Arterial Blood Oxygen Saturation 93.0 L 94.0-98.0 % Arterial Blood Base Excess -0.6 -2.0-3.0 mmol/L Blood Gas Temperature 37.0 35.5-37.0 CELSIUS Blood Gas Vent Mode RA ROOM AIR FiO2 21.0 % Blood Gas Specimen Comment RR SANTIAGO, TONY Activated Partial Thromboplast Time 33.0 # 26.3-35.5 SEC White Blood Count 5.0 # 4.8-10.8 K/uL Red Blood Count 3.17 L 4.50-6.20 MIL/uL Hemoglobin 10.0 L 14.0-18.0 g/dL Hematocrit 29.0 L 42-54 % Mean Corpuscular Volume 91.5 79-99 fL Mean Corpuscular Hemoglobin 31.5 27.0-33.0 pg Mean Corpuscular Hemoglobin Concent 34.5 32.0-36.0 g/dL Red Cell Distribution Width 13.0 11.0-15.5 % Platelet Count 155 130-400 K/uL Mean Platelet Volume 10.4 7.5-10.5 fL Immature Granulocyte % (Auto) 0.4 0-1 % Neutrophils (%) (Auto) 43.0 40.0-77.0 % Lymphocytes (%) (Auto) 45.2 21.0-51.0 % Monocytes (%) (Auto) 8.4 3.0-13.0 % Eosinophils (%) (Auto) 2.6 0.0-8.0 % Basophils (%) (Auto) 0.4 0.0-5.0 % Neutrophils # (Auto) 2.2 1.8-7.7 K/uL Lymphocytes # (Auto) 2.3 1.0-4.8 K/uL Monocytes # (Auto) 0.4 0.1-1.0 K/uL Eosinophils # (Auto) 0.13 0.00-0.70 K/uL Basophils # (Auto) 0.02 0.00-0.20 K/uL Absolute Immature Granulocyte (auto 0.02 0-1 K/uL Segmented Neutrophils % 41 40-70 % Band Neutrophils % 4 H 0-2 % Lymphocytes % (Manual) 39 22-44 % Monocytes % (Manual) 14 H 2-9 % Eosinophils % (Manual) 1 1-6 % Basophils % (Manual) 1 0-2 % Nucleated Red Blood Cells 0.0 0.0-0.19 % Differential Comment MANUAL DIFFERENTIAL White Cell Morphology Comment CONSISTENT W/DIFF Platelet Morphology Comment See comments Red Blood Cell Morphology ANISO 1+ Sodium Level 143 136-145 mmol/L Potassium Level 3.6 3.5-5.1 mmol/L Chloride Level 107 101-111 mmol/L Carbon Dioxide Level 31 21-32 mmol/L Blood Urea Nitrogen 15 7-18 mg/dL Creatinine 1.2 0.5-1.3 mg/dL Glomerular Filtration Rate Calc 71 >90 mL/min Random Glucose 96 70-105 mg/dL Total Calcium 8.6 8.5-10.1 mg/dL Magnesium Level 1.70 L 1.80-2.40 mg/dL Total Bilirubin 0.3 0.2-1.0 mg/dL Aspartate Amino Transf (AST/SGOT) 36 10-37 U/L Alanine Aminotransferase (ALT/SGPT) 29 12-78 U/L Alkaline Phosphatase 83 # 50-136 U/L Total Protein 6.5 6.0-8.3 g/dL Albumin 2.2 L 3.5-5.0 g/dL Test 07/06/24 03:10 Range/Units Prothrombin Time 11.1 9.6-11.6 SEC Prothromb Time International Ratio 1.05 0.85-1.15 ASSESSMENT: Right foot stump ulcer with polymicrobial infection, Acinetobacter baumannii, Klebsiella oxytoca, Morganella morganii and Staphylococcus aureus. Right lower extremity cellulitis. Possible angina pectoris. Elevated troponin. Diabetes mellitus. Obesity. PLAN: Start Tygacil 100 mg IV once then 50 mg IV every 12 hours. Continue Zosyn IV every 8 hours. Continue GI prophylaxis. Continue antiplatelets. Continue wound care. Continue pain management. Continue thiamine. Continue monitoring glucose levels. Patient is scheduled for a peripheral angiogram for today. This case was reviewed and discussed with my supervising physician and the above assessment and plan was formulated and agreed upon. ATTESTATION BY PHYSICIAN I have seen and examined the patient. I reviewed the documentation, medical decision making, and treatment plan as noted by the mid-level provider above. I agree with the findings and plan of care. MÓNICA MOSQUEDA MD, [facility] Jul 07, 2024 15:48
--- NOTE | 2024-07-07 15:48 | NUR ---
nurse note glucose check at bedside 66, patient was NPO for most of the day for procedure. procedure completed, gave patient juice and crackers and will reassess glucose, patient asymptomatic, alert and oriented x4
--- NOTE | 2024-07-07 16:20 | NUR ---
nurse note blood glucose 88 after reassess after oral intake
[2024-07-08] VITALS (8 sets, daily range): BP systolic 99–126; BP diastolic 59–78; PULSE 57–92; RESP 15–19; TEMP 97.6–98.4; O2SAT 99–100
[2024-07-08] MEDS: TIGECYCLINE 50 MG in 0.9%NACL 100ML 100 ML IV SCH (02:17)
[2024-07-08 04:12] LABS: BASOPHILS # (AUTO) 0.02 K/uL (0.00-0.20); BASOPHILS % (AUTO) 0.4 % (0.0-5.0); EOSINOPHILS # (AUTO) 0.06 K/uL (0.00-0.70); EOSINOPHILS % (AUTO) 1.1 % (0.0-8.0); HEMATOCRIT 29.5 % (42-54); IMMATURE GRANULOCYTE ABSOLUTE 0.02 K/uL (0-1); LYMPHOCYTES # (AUTO) 1.3 K/uL (1.0-4.8); LYMPHOCYTES % (AUTO) 24.3 % (21.0-51.0); MEAN CORPUSCULAR HEMOGLOBIN 31.2 pg (27.0-33.0); MEAN CORPUSCULAR HGB CONC 34.2 g/dL (32.0-36.0); MONOCYTES # (AUTO) 0.5 K/uL (0.1-1.0); MONOCYTES % (AUTO) 9.5 % (3.0-13.0); NEUTROPHILS # (AUTO) 3.4 K/uL (1.8-7.7); NEUTROPHILS % (AUTO) 64.3 % (40.0-77.0); PLATELET COUNT (AUTO) 184 K/uL (130-400); RED BLOOD CELL COUNT(AUTO) 3.24 MIL/uL (4.50-6.20); RED CELL DISTRIBUTION WIDTH 12.9 % (11.0-15.5); WHITE BLOOD COUNT (AUTO) 5.4 K/uL (4.8-10.8)
[2024-07-08 04:42] LABS: ALBUMIN 2.2 g/dL (3.5-5.0); BILIRUBIN,TOTAL 0.3 mg/dL (0.2-1.0); MAGNESIUM 1.9 mg/dL (1.80-2.40); POTASSIUM 4.4 mmol/L (3.5-5.1); TOTAL PROTEIN, SERUM 6.5 g/dL (6.0-8.3)
--- NOTE | 2024-07-08 14:12 | NUR ---
[facility] Follow-up: Patient re-assessed by wound healing team. See wound assessment. Assessment and recommendations provided to primary nurse. Education provided. Wound care done. Addendum: 07/08/24 at 1616 by SARINA ALVARADO RN RN/ Amended: Links added.
--- NOTE | 2024-07-08 17:11 | PN ---
INFECTIOUS DISEASE PROGRESS NOTE Date of Service: Jul 08, 2024 SUBJECTIVE: This is a 72-year-old male patient who was seen and examined at bedside in room 430. Patient is awake, alert and oriented x 3. Patient is status post abdominal aortogram with pelvic runoff with successful intervention of the right SFA stenosis. No fever this morning, temperature is 97.7 and the WBC is 5.4. Patient with polymicrobial infection to the right foot stump. Will continue on Tygacil and continue zosyn. Preliminary Blood culture results growing gram positive rods. We will continue to follow on the final culture results. Patient will need 6 weeks of IV antibiotics. We will have Case management evaluate patient for referral to [facility]. PHYSICAL EXAM EYES: Anicteric. Pupils equal and reactive. HENT: No oral thrush seen, moist Oral mucosa. NECK: Supple, no JVD or thyromegaly. LUNGS: Good air entry. No rales, no rhonchi. CARDIOVASCULAR: S1, S2 regular. No murmur heard. ABDOMEN: Soft, non tender, bowel sounds present, no organomegaly. CENTRAL NERVOUS SYSTEM: Awake, alert, oriented x 3. SKIN: No rashes, no swelling. LYMPHATICS: No peripheral lymphadenopathy. MUSCULOSKELETAL: No joint swelling, erythema or tenderness. 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 Ulcer involving the posterior aspect of the right lower leg. Ulcer involving the right stump. BACK: No deformity, no pressure ulcer. GENITOURINARY: No dysuria or hematuria. Vital Sign (Last 12 Hours) 07/08/24 07/08/24 07/08/24 07/08/24 08:00 08:00 12:00 16:00 Temp 97.7 97.7 97.7 Pulse 77 72 76 Resp 16 15 16 B/P (MAP) 121/75 99/59 121/78 Pulse Ox 99 99 99 99 O2 Delivery Room Air Room Air* Room Air Room Air O2 Flow Rate 0.0 0 0.0 0.0 FiO2 21 LABS: Laboratory: Test 07/08/24 15:49 07/08/24 03:53 07/07/24 12:23 07/07/24 07:14 Range/Units Whole Blood Glucose 115 H 70-110 MG/DL White Blood Count 5.4 4.8-10.8 K/uL Red Blood Count 3.24 L 4.50-6.20 MIL/uL Hemoglobin 10.1 L 14.0-18.0 g/dL Hematocrit 29.5 L 42-54 % Mean Corpuscular Volume 91.0 79-99 fL Mean Corpuscular Hemoglobin 31.2 27.0-33.0 pg Mean Corpuscular Hemoglobin Concent 34.2 32.0-36.0 g/dL Red Cell Distribution Width 12.9 11.0-15.5 % Platelet Count 184 130-400 K/uL Mean Platelet Volume 10.3 7.5-10.5 fL Immature Granulocyte % (Auto) 0.4 0-1 % Neutrophils (%) (Auto) 64.3 40.0-77.0 % Lymphocytes (%) (Auto) 24.3 21.0-51.0 % Monocytes (%) (Auto) 9.5 3.0-13.0 % Eosinophils (%) (Auto) 1.1 0.0-8.0 % Basophils (%) (Auto) 0.4 0.0-5.0 % Neutrophils # (Auto) 3.4 1.8-7.7 K/uL Lymphocytes # (Auto) 1.3 1.0-4.8 K/uL Monocytes # (Auto) 0.5 0.1-1.0 K/uL Eosinophils # (Auto) 0.06 0.00-0.70 K/uL Basophils # (Auto) 0.02 0.00-0.20 K/uL Absolute Immature Granulocyte (auto 0.02 0-1 K/uL Nucleated Red Blood Cells 0.0 0.0-0.19 % Sodium Level 140 136-145 mmol/L Potassium Level 4.4 3.5-5.1 mmol/L Chloride Level 106 101-111 mmol/L Carbon Dioxide Level 30 21-32 mmol/L Blood Urea Nitrogen 21 H 7-18 mg/dL Creatinine 1.0 0.5-1.3 mg/dL Glomerular Filtration Rate Calc 88 >90 mL/min Random Glucose 79 70-105 mg/dL Total Calcium 8.6 8.5-10.1 mg/dL Magnesium Level 1.90 1.80-2.40 mg/dL Total Bilirubin 0.3 0.2-1.0 mg/dL Aspartate Amino Transf (AST/SGOT) 33 10-37 U/L Alanine Aminotransferase (ALT/SGPT) 30 12-78 U/L Alkaline Phosphatase 74 50-136 U/L Total Protein 6.5 6.0-8.3 g/dL Albumin 2.2 L 3.5-5.0 g/dL Blood Gas Specimen Type Arterial Arterial Blood pH 7.406 7.350-7.450 Arterial Blood Partial Pressure CO2 39 35-48 mmHg Arterial Blood Partial Pressure O2 65.2 L 83.0-108.0 mmHg Arterial Blood HCO3 23.9 21.0-28.0 mmol/L Arterial Blood Oxygen Saturation 93.0 L 94.0-98.0 % Arterial Blood Base Excess -0.6 -2.0-3.0 mmol/L Blood Gas Temperature 37.0 35.5-37.0 CELSIUS Blood Gas Vent Mode RA ROOM AIR FiO2 21.0 % Blood Gas Specimen Comment RR TONY HENDERSON Activated Partial Thromboplast Time 33.0 # 26.3-35.5 SEC Test 07/07/24 01:18 Range/Units Segmented Neutrophils % 41 40-70 % Band Neutrophils % 4 H 0-2 % Lymphocytes % (Manual) 39 22-44 % Monocytes % (Manual) 14 H 2-9 % Eosinophils % (Manual) 1 1-6 % Basophils % (Manual) 1 0-2 % Differential Comment MANUAL DIFFERENTIAL White Cell Morphology Comment CONSISTENT W/DIFF Platelet Morphology Comment See comments Red Blood Cell Morphology ANISO 1+ ASSESSMENT: Right foot stump ulcer with polymicrobial infection, Acinetobacter baumannii, Klebsiella oxytoca, Morganella morganii and Staphylococcus aureus. Right lower extremity cellulitis. Peripheral artery disease, status post abdominal aortogram with pelvic runoff with successful intervention of the right SFA stenosis. Possible angina pectoris. Elevated troponin. Diabetes mellitus. Obesity. PLAN: Continue Tygacil 100 mg IV every 12 hours. Continue Zosyn IV every 8 hours. Continue GI prophylaxis. Continue antiplatelets. Continue wound care. Continue pain management. Continue thiamine. Continue monitoring glucose levels. Patient will need 6 weeks of IV antibiotics. Case management evaluation for referral to [facility]. This case was reviewed and discussed with my supervising physician and the above assessment and plan was formulated and agreed upon. ATTESTATION BY PHYSICIAN I have seen and examined the patient. I reviewed the documentation, medical decision making, and treatment plan as noted by the mid-level provider above. I agree with the findings and plan of care. MÓNICA MOSQUEDA MD, MIRTA L [facility] Jul 08, 2024 17:11
--- NOTE | 2024-07-08 18:27 | PN ---
[facility] PROGRESS NOTE Date of Service: Jul 08, 2024 Time of Service: 18:26 SUBJECTIVE: Mr. Patrick is a 59-year-old male that was seen and examined today on 07/03/2024. Patient is a good historian of personal health Patient states that he came to the emergency department with a chief complaint of chest pain. Onset was 07/02/2024 at 4:30 p.m.. Location is to left lower chest along the midclavicular line. Duration is on and off. Character is described as pressure. Symptoms are aggravated with, " walking around the bar. "Patient states he was at a local bar consuming alcohol prior to coming to the emergency department. There was no alleviating factors. Patient reports associated right foot pain. Today in the emergency department WBCs 12.2, left shift neutrophils 82.2%, glucose 184 mg/dL, high sensitivity troponin 183, BNP 249, urinalysis is unremarkable, urine toxicology is unremarkable, alcohol level is 25. Emergency room physician recommended that patient be admitted with a diagnosis of chest pain. Additionally patient presented with a heart rate of 112, combined with patient's WBCs of 12.2 and identified suspected source of infection being right lower extremity wounds patient met clinical sepsis criteria. 07/03/2024 The patient was examined at bedside. The patient states resolution of his chest pain completely. There is wound in his right lower extremity. His temperature is fluctuating and has slight fever. The patient appears very weak fatigued and tired. He was on prolonged courses of antibiotics for a longer duration. He is in mild distress due to pain from his foot. Coordinating care with the Wound sap solution manager consultant cardiology team and Infectious Disease team. He was recently hospitalized for prolonged period for his right lower extremity wound infection. Discuss the goal of care with the patient. Evaluating and ruling out all causes of his chest pain. 07/04/2024 10AM Patient is seen and examined at the bedside. He denies chest pain, fever, chills. He complains of right foot pain. Blood culture results are negative. He is on heparin drip in view of NSTEMI. Chest x-ray and CT PE resulted in no acute findings. Urinalysis positive for leukocyte esterase. Troponin trended up from 800-1243. Right wound aspirate gram stain resulted in gram negative rods and Gram-positive cocci in clusters Staph aureus. 07/05/24: Patient seen and examined in the morning denies any new complaints. Denies chest pain denies shortness of breath denies fever or chills. MRI shows no osteomyelitis only cellulitis changes. Blood culture is growing Gram-positive meghna in one of the bottle final sensitivity and identification is still pending. Cardiology has already seen the patient and recommended conservative management with heparin drip for48 hours aspirin Plavix and high- intensity statin. Heparin drip will be stopped today July 06, 2024 the patient was examined at bedside, he had a history of ischemic cardiomyopathy, peripheral artery disease, chronic right foot infection with previous osteomyelitis, recent bacteremia. He is currently admitted for management of myositis and cellulitis of the right foot, peripheral artery disease and evaluation of elevated troponin. The patient remains hemodynamically stable, denies new complaints and verbalizes understanding of the treatment plan. No overnight events or complaints. No new chest pain, dyspnea, dizziness or palpitations. Heparin will be held in the a.m. aerobic active Bactrim baumannii culture positive. And blood cultures Gram- positive rods detected in 1-2 bottles pending speciation and sensitivities. And aerobic culture for Klebsiella oxytoca, Morganella morganii, staph aureus is pos itive. 07/07/24 patient was evaluated in the room this morning, he is very somnolent, he is on CIWA protocol taking Librium. He is in and out of consciousness. Apparently patient drinks four beers daily. Patient is scheduled for angio today with Dr. Muhammad 07/08/24 The patient underwent an abdominal angiogram with pelvic runoff followed by right lower extremity digital subtraction angiogram with drug coated balloon percutaneous transluminal angioplasty of the distal right superficial femoral artery. The intervention was successful significantly improving the 50% distal right SFA stenosis, which was reduced to 0% residual stenosis. The patient remains mildly drowsy but conversant, with no new complaints and no overnight events. Reports mild discomfort at the catheterization site and bilateral lower extremity discomfort. He understands the treatment plan and is awaiting transfer to a senior care facility for IV antibiotic therapy for 6 weeks As per Infectious Disease suggestion. REVIEW OF SYSTEMS CONSTITUTIONAL: Denies fevers, chills, or night sweats. No unintentional weight loss reported. NEUROLOGICAL: Denies headache, amaurosis fugax, motor weakness, sensory deficit, vertigo/spinning sensation, gait abnormalities, or tremors. ENT: No hearing loss, otalgia, otorrhea, rhinitis, rhinorrhea, hoarseness, or sore throat. CARDIOVASCULAR: Denies any exertional angina, dyspnea on exertion, orthopnea, paroxysmal nocturnal dyspnea, palpitations, life-threatening arrhythmias, claudication. PULMONARY: Denies any shortness of breath, cough, phlegm/sputum, hemoptysis, pleuritic chest pain. SLEEP: Denies morning headaches, daytime somnolence or napping. Denies difficulty falling asleep, staying asleep, waking from sleep. Denies knowledge of snoring. GASTROINTESTINAL: Denies any type of dysphagia to either liquids or solids. Denies nausea, vomiting, pyrosis, early satiety, abdominal pain, diarrhea, constipation, or changes in stool consistency or caliber. Denies coffee-ground emesis, hematemesis, hematochezia, or melanotic stools. GENITOURINARY: Denies frequency, urgency, nocturia, hematuria or incontinence (Storage/Irritative symptoms.) Low urinary stream, straining to void, urinary intermittency or hesitancy, splitting of the voiding stream, terminal dribbling. ENDOCRINOLOGIC: Denies polyuria, polydipsia, polyphagia or heat/cold intolerances. HEMATOLOGIC: Denies thrombophilia/previous clots, or coagulopathy/bleeding disorders. ONCOLOGIC: Denies personal history of malignancy. DERMATOLOGIC: Denies rashes or pruritus. PSYCHIATRIC: Denies any suicidal or homicidal ideation. Denies hallucinations. PHYSICAL EXAM GENERAL APPEARANCE: The patient is awake, alert, and oriented, in no acute cardiopulmonary distress. NEUROLOGICAL: Cranial nerves II-XII grossly intact. Motor is 5/5 in bilateral upper and lower extremities proximal to distal. No sensory deficits. HEENT: Face is symmetric. Pupils are equal and reactive. Extraocular movements are intact. NECK: Supple. No JVD. No thyromegaly. No submental, submandibular, pre- /postauricular, occipital or supraclavicular lymphadenopathy. CHEST: Normal chest expansion. No Telemetry. LUNGS: Absence of any rales, rhonchi or any wheezing. CARDIOVASCULAR: Regular. S1 and S2 normal. No appreciable rubs, murmurs or gallops. ABDOMEN: Soft, nontender, and nondistended. There is no rebound, voluntary guarding, or rigidity. : Deferred. No Abrams. EXTREMITIES: Right foot with amputation dressing is clean and intact. SKIN: No skin breakdown. Vital Signs (last 8hr) Date Time Temp Pulse Resp B/P (MAP) Pulse Ox O2 Delivery O2 Flow Rate FiO2 07/08/24 16:00 97.7 76 16 121/78 99 Room Air 0.0 07/08/24 12:00 97.7 72 15 99/59 99 Room Air 0.0 LABS: Laboratory: Test 07/08/24 15:49 07/08/24 03:53 07/07/24 12:23 07/07/24 07:14 Range/Units Whole Blood Glucose 115 H 70-110 MG/DL White Blood Count 5.4 4.8-10.8 K/uL Red Blood Count 3.24 L 4.50-6.20 MIL/uL Hemoglobin 10.1 L 14.0-18.0 g/dL Hematocrit 29.5 L 42-54 % Mean Corpuscular Volume 91.0 79-99 fL Mean Corpuscular Hemoglobin 31.2 27.0-33.0 pg Mean Corpuscular Hemoglobin Concent 34.2 32.0-36.0 g/dL Red Cell Distribution Width 12.9 11.0-15.5 % Platelet Count 184 130-400 K/uL Mean Platelet Volume 10.3 7.5-10.5 fL Immature Granulocyte % (Auto) 0.4 0-1 % Neutrophils (%) (Auto) 64.3 40.0-77.0 % Lymphocytes (%) (Auto) 24.3 21.0-51.0 % Monocytes (%) (Auto) 9.5 3.0-13.0 % Eosinophils (%) (Auto) 1.1 0.0-8.0 % Basophils (%) (Auto) 0.4 0.0-5.0 % Neutrophils # (Auto) 3.4 1.8-7.7 K/uL Lymphocytes # (Auto) 1.3 1.0-4.8 K/uL Monocytes # (Auto) 0.5 0.1-1.0 K/uL Eosinophils # (Auto) 0.06 0.00-0.70 K/uL Basophils # (Auto) 0.02 0.00-0.20 K/uL Absolute Immature Granulocyte (auto 0.02 0-1 K/uL Nucleated Red Blood Cells 0.0 0.0-0.19 % Sodium Level 140 136-145 mmol/L Potassium Level 4.4 3.5-5.1 mmol/L Chloride Level 106 101-111 mmol/L Carbon Dioxide Level 30 21-32 mmol/L Blood Urea Nitrogen 21 H 7-18 mg/dL Creatinine 1.0 0.5-1.3 mg/dL Glomerular Filtration Rate Calc 88 >90 mL/min Random Glucose 79 70-105 mg/dL Total Calcium 8.6 8.5-10.1 mg/dL Magnesium Level 1.90 1.80-2.40 mg/dL Total Bilirubin 0.3 0.2-1.0 mg/dL Aspartate Amino Transf (AST/SGOT) 33 10-37 U/L Alanine Aminotransferase (ALT/SGPT) 30 12-78 U/L Alkaline Phosphatase 74 50-136 U/L Total Protein 6.5 6.0-8.3 g/dL Albumin 2.2 L 3.5-5.0 g/dL Blood Gas Specimen Type Arterial Arterial Blood pH 7.406 7.350-7.450 Arterial Blood Partial Pressure CO2 39 35-48 mmHg Arterial Blood Partial Pressure O2 65.2 L 83.0-108.0 mmHg Arterial Blood HCO3 23.9 21.0-28.0 mmol/L Arterial Blood Oxygen Saturation 93.0 L 94.0-98.0 % Arterial Blood Base Excess -0.6 -2.0-3.0 mmol/L Blood Gas Temperature 37.0 35.5-37.0 CELSIUS Blood Gas Vent Mode RA ROOM AIR FiO2 21.0 % Blood Gas Specimen Comment RR TONY HENDERSON Activated Partial Thromboplast Time 33.0 # 26.3-35.5 SEC Test 07/07/24 01:18 Range/Units Segmented Neutrophils % 41 40-70 % Band Neutrophils % 4 H 0-2 % Lymphocytes % (Manual) 39 22-44 % Monocytes % (Manual) 14 H 2-9 % Eosinophils % (Manual) 1 1-6 % Basophils % (Manual) 1 0-2 % Differential Comment MANUAL DIFFERENTIAL White Cell Morphology Comment CONSISTENT W/DIFF Platelet Morphology Comment See comments Red Blood Cell Morphology ANISO 1+ Current Medications Medications (Trade) Dose Ordered Sig/Jl Route PRN Reason Start Time Stop Time Status Last Admin Dose Admin Acetaminophen (TYLenol 325MG TAB) 650 mg Q6H PRN PO TEMPERATURE GREATER THAN 101.5 07/03/24 03:00 08/02/24 02:59 Aspirin (Aspirin 81mg Ec Tab) 81 mg DAILY PO 07/04/24 09:00 08/03/24 08:59 07/08/24 08:54 81 MG Atorvastatin Calcium (LIPItor 40MG) 40 mg HS PO 07/03/24 21:00 07/05/24 15:02 DC 07/04/24 20:22 40 MG Atorvastatin Calcium (LIPItor 40MG) 80 mg HS PO 07/05/24 21:00 08/04/24 20:59 07/07/24 20:35 80 MG Chlordiazepoxide HCl (LIBrium 25 MG CAP) 25 mg Q8H PO 07/03/24 03:00 07/10/24 02:59 07/08/24 11:09 25 MG Clopidogrel Bisulfate (plaVIX 75MG) 75 mg DAILY PO 07/04/24 09:00 08/03/24 08:59 07/08/24 08:54 75 MG Famotidine (Pepcid 20mg Tab) 20 mg DAILY PO 07/03/24 09:00 08/02/24 08:59 07/08/24 08:53 20 MG Heparin Sodium (Porcine) (HEParin 5,000 UNIT VIAL) *calculation based on ACTUAL B... AD PRN IV HEPARIN PROTOCOL 07/03/24 04:00 07/03/24 03:51 DC 07/03/24 03:41 6,000 UNIT Heparin Sodium/ Dextrose 250 ml @ 0 mls/hr Q6H IV 07/03/24 04:00 07/07/24 15:46 DC 07/06/24 21:28 10.34 MLS/HR Hydralazine HCl (APRESOLine 20MG INJ) 10 mg Q6H PRN IV For:SBP above 160;DBP above 90 07/03/24 03:00 08/02/24 02:59 Insulin Glargine (LANtus 100 UNITS/ML 10 ML VIAL) 15 units BID SQ 07/03/24 21:00 08/02/24 20:59 07/08/24 09:00 15 UNITS Leptospermum Honey (Medihoney) 1 APPL DAILY TP 07/03/24 14:00 08/02/24 13:59 07/08/24 08:54 1 APPL Lorazepam (AtiVAN) 1 mg Q4H PRN IVP ALCOHOL WITHDRAWAL PROTOCOL 07/03/24 03:00 07/10/24 02:59 Magnesium Sulfate 50 ml @ 0 mls/hr PROTOCOL PRN IV Electrolyte abnormality 07/03/24 12:00 08/02/24 11:59 07/08/24 11:06 25 MLS/HR Metoprolol Tartrate (loprESSOR) 25 mg BID PO 07/03/24 21:00 08/02/24 20:59 07/08/24 08:53 25 MG Miscellaneous Medication (Insulin Degludec (Tresiba Flextouch U-100)) 15 units ACBKFST SQ 07/04/24 07:30 07/03/24 14:11 DC Miscellaneous Medication ([Tramadol ] ) 50 mg BID PRN PO P610 07/03/24 14:00 07/03/24 14:09 DC Morphine Sulfate (morPHINE 2MG SYG) 2 mg Q4H PRN IVP SEVERE PAIN (7-10) 07/03/24 03:30 07/08/24 06:29 DC Nitroglycerin (Nitroglycerin 1gm Oint) 0.5 inch Q8H TD 07/03/24 03:00 08/02/24 02:59 07/08/24 11:09 0.5 INCH Ondansetron HCl (zoFRAN 4MG INJ) 4 mg Q6H PRN IV NAUSEA/VOMITING 07/03/24 03:00 08/02/24 02:59 Pharmacy Profile Note (Pharmacy Communication) 1 each ONCE MISC 07/07/24 13:00 07/07/24 12:55 DC Pharmacy Profile Note (Pharmacy Communication) 1 each PROTOCOL PRN MISC ETOH Withdrawal Score changes 07/03/24 03:00 07/10/24 02:59 Piperacillin Sod/ Tazobactam Sod (Zosyn 3.375gm+NS 50ml) 3.375 gm Q8H IV 07/03/24 01:30 07/03/24 03:03 DC 07/03/24 01:37 3.375 GM Piperacillin Sod/ Tazobactam Sod (Zosyn 3.375gm+NS 50ml) 3.375 gm Q8H IVPB 07/03/24 09:30 07/13/24 09:29 07/08/24 08:54 3.375 GM Potassium Chloride 100 ml @ 50 mls/hr AD PRN IV POTASSIUM PROTOCOL 07/03/24 12:00 08/02/24 11:59 Potassium Chloride 100 ml @ 100 mls/hr AD PRN IV POTASSIUM PROTOCOL 07/04/24 13:00 07/04/24 12:43 DC Potassium Chloride (K-Dur/Klor-Con 20meq) 20 meq AD PRN PO POTASSIUM PROTOCOL 07/04/24 13:00 08/03/24 12:59 07/05/24 17:10 20 MEQ Potassium Chloride (KCl 10% Elixir 20meq/15ml) 20 meq AD PRN PO POTASSIUM PROTOCOL 07/04/24 13:00 08/03/24 12:59 07/07/24 15:38 20 MEQ Pregabalin ([id number]) 75 mg BID PO 07/03/24 21:00 08/02/24 20:59 07/08/24 08:53 75 MG Sodium Chloride 1,000 ml @ 150 mls/hr Q6H40M IV 07/07/24 14:00 07/07/24 17:59 DC 07/07/24 15:15 150 MLS/HR Sodium Chloride (NS 50ml) 50 ml AD IV 07/03/24 03:00 07/03/24 11:34 DC Thiamine HCl (Vitamin B-1) 100 mg DAILY PO 07/05/24 09:00 08/04/24 08:59 07/08/24 08:53 100 MG Tigecycline 50 mg/ Sodium Chloride 100 ml @ 100 mls/hr Q12H IV 07/08/24 01:00 07/15/24 00:59 07/08/24 13:31 100 MLS/HR Vancomycin HCl (Vancomycin 1.25 Gm/250 ml Bag) 1.25 gm ONCE IV 07/03/24 11:30 07/03/24 11:33 DC DIAGNOSTICS / RADIOLOGY: [ ] ABDOMINAL AORTOGRAM WITH PELVIC RUNOFF, FOLLOWED BY RIGHT LOWER EXTREMITY DIGITAL SUBTRACTION ARTERIOGRAM AND DCB-BENCH HAND MACHINE DISTAL RIGHT SUPERFICIAL FEMORAL INDICATION: ILIANA STAGE SIX PERIPHERAL ARTERIAL DISEASE TECHNIQUE: Patient was brought to the lab in a fasting state after informed consent and sedated 1 mg Versed and 50 mcg fentanyl. Under local anesthesia with 1% lidocaine in the left common femoral artery was punctured anteriorly using micropuncture technique with fluoroscopic and ultrasound guidance. A six Icelandic sheath was inserted. An Omni flush catheter was positioned in the distal abdominal aorta and an abdominal aortogram with pelvic runoff was obtained by digital subtraction angiography. The Omni flush was repositioned in the right common femoral and right lower extremity cine angiogram was obtained. We then exchanged for a 90 cm six Icelandic sheath which was positioned in the proximal popliteal and right infrapopliteal digital subtraction arteriography was carried out. We then withdrew the sheath, monitoring for pressure gradient relief, which identified at the distal SFA where there was a 50% radiolucent stenosis with a 40 mm gradient. 5200 units aqueous heparin was administered intravenously along with 300 mg clopidogrel and 325 mg aspirin. We then parked the distal end of the sheath in the mid SFA and wire the lesion with the advantage Glidewire, then dilated with a 40 x 6 mm Carena DCB. Results were inspected angiographically and the apparatus was removed. Hemostasis was obtained by use of Perclose with excellent hemostasis and no complications. Results: There is minimal calcification in the distal aorta and proximal right iliac and there is calcification in the wall of the right superficial femoral but the only stenoses RA 25% ostial stenosis of the left profunda, a 50% radiolucent stenosis of the distal right SFA in Pradeep's canal, and a 30% narrowing of the right popliteal. In the infrapopliteal vessels, there was a 90% stenosis in the distal 3rd of the peroneal. There is a total occlusion of the anterior tibial on the ankle. The right posterior tibial supplies the foot, which has undergone partial amputation previously. Interventional Results: the 50% radiolucent distal right SFA stenosis is reduced to a 0% residual with smooth intima and brisk runoff. Conclusions: Successful intervention on the distal right SFA stenosis. ASSESSMENT: ASSESSMENT: Chest pain, POA Non-STEMI, currently on heparin drip, POA Elevated cardiac enzymes, POA Right inefcted foot wound, POA Cellulitis of right lower extremity. POA. anemia / POA Sepsis, POA Alcohol dependence, POA Leukocytosis, POA Uncontrolled Diabetes mellitius type2, POA Hypertension Hyperlipidemia Type 2 diabetes mellitus Right internal carotid artery stenosis History of CVA in April 2022 Grade 1 diastolic heart failure by 2D echo on 05/26/2023 with EF 40-45% Peripheral artery disease right lower extremity by ultrasound on 04/14/2024]] Myositis /right foot POA PLAN: Peripheral artery disease / post peripheral angiogram and BENCH HAND MACHINE: BENCH HAND MACHINE with DC be of distal right SFA. monitor urine output and renal function. Optimize hydration status prior to annual monitor for postprocedural complication. Right foot wound, right ankle wound: Wound gram stain revealed Gram-negative rods and Gram-positive cocci in clu sters, staph aureus monitor for signs of worsening infection. Repeat WBC count and inflammatory markers in the am Follow up on wound culture results Wound Care Service recommended Medihoney dressings. Continue Zosyn IV And tigecycline 50 mg q.12h per ID recommendations. Sepsis, leukocytosis: Fluid resuscitation with lactated Ringer's 30 mL/kg. Continue antibiotic therapy with Zosyn and tigecycline, Reviewed patient's lactic acid, unremarkable. continue blood cultures to assess clearance. ID team following for targeted therapy. Avoid invasive cardiac workup elevated troponins likely secondary to sepsis or demand ischemia. Urinary tract infection, POA Reviewed patient's urinalysis which is mildly suggestive of UTI very few white blood cell count this could be a contaminated sample although squamous epithelial cells are rare. Differential diagnosis of UTI we will be covered by aforementioned antimicrobial therapy, Zosyn. Follow up on urine culture results repeat CBC tomorrow consider iron supplementation if anemia persists discontinue heparin in the a.m. tomorrow. Monitor APTT in the morning. Consider resuming DVT prophylaxis postprocedure if indicated. Continue aspirin 81 mg daily, atorvastatin 80 mg daily, clopidogrel 75 mg daily and metoprolol tartrate 25 mg b.i.d.. Alcohol dependence: Counseled patient on alcohol cessation. Librium 25 mg by mouth every 8 hours, we will monitor titrate As needed Ativan for alcohol withdrawal 1 mg every 4 hours Use CIWA-AR assessment tool Document EtOH withdrawal score Assess the need for seizure and aspiration precautions We will order thiamine preparation for the patient Diabetes mellitus type 2: Check hemoglobin A1c in a.m. Glucometer checks a.c. and HS 1800 ADA diet Humulin R sliding scale Hypertension, hyperlipidemia, right internal carotid artery stenosis, grade 1 diastolic heart failure Intake and output every shift. Daily weights Hydralazine 10 mg IV every 4 hours for systolic blood pressure greater than 160 mmHg, aspirin 81 mg daily, clopidogrel 75 mg daily, atorvastatin 80 mg HS. GI prophylaxis, famotidine DVT prophylaxis, patient will be on heparin drip as mentioned above, as per Cardiology recommendation Discharge planning and transfer plan patient is medically stable for transfer to SNF [facility] for IV antibiotic therapy for 6 weeks per ID recommendation AWAITING FINAL CONFIRMATION OF SNF ACCEPTANCE. ATTESTATION BY PHYSICIAN I have seen and examined the patient. I reviewed the documentation, medical decision making, and treatment plan as noted by the resident above. I agree with the findings and plan of care. Camilo Rowland MD, RAGHAVA R MD Jul 08, 2024 18:27
--- NOTE | 2024-07-08 18:40 | NUR ---
LIBRIUM Librium held patient sleepy
[2024-07-08] MEDS: DEXTROSE 50%-WATER 50 ML DISP.SYRIN IV ONE (23:28)
[2024-07-09] VITALS (7 sets, daily range): BP systolic 113–142; BP diastolic 58–86; PULSE 67–90; RESP 16–17; TEMP 97.7–98; O2SAT 100
[2024-07-09 06:14] LABS: BASOPHILS # (AUTO) 0.03 K/uL (0.00-0.20); BASOPHILS % (AUTO) 0.5 % (0.0-5.0); EOSINOPHILS # (AUTO) 0.06 K/uL (0.00-0.70); HEMATOCRIT 32.4 % (42-54); IMMATURE GRANULOCYTE ABSOLUTE 0.03 K/uL (0-1); LYMPHOCYTES # (AUTO) 1.8 K/uL (1.0-4.8); LYMPHOCYTES % (AUTO) 30.1 % (21.0-51.0); MEAN CORPUSCULAR HEMOGLOBIN 31.6 pg (27.0-33.0); MEAN CORPUSCULAR HGB CONC 34.6 g/dL (32.0-36.0); MEAN CORPUSCULAR VOLUME 91.5 fL (79-99); MONOCYTES # (AUTO) 0.6 K/uL (0.1-1.0); MONOCYTES % (AUTO) 9.7 % (3.0-13.0); NEUTROPHILS # (AUTO) 3.5 K/uL (1.8-7.7); NEUTROPHILS % (AUTO) 58.2 % (40.0-77.0); PLATELET COUNT (AUTO) 230 K/uL (130-400); RED BLOOD CELL COUNT(AUTO) 3.54 MIL/uL (4.50-6.20); RED CELL DISTRIBUTION WIDTH 12.9 % (11.0-15.5)
[2024-07-09 06:41] LABS: ALBUMIN 2.4 g/dL (3.5-5.0); BILIRUBIN,TOTAL 0.4 mg/dL (0.2-1.0); CREATININE 1.1 mg/dL (0.5-1.3); MAGNESIUM 2.4 mg/dL (1.80-2.40); TOTAL PROTEIN, SERUM 7.2 g/dL (6.0-8.3)
--- NOTE | 2024-07-09 08:35 | PN ---
Revascularization has been successful and the patient reports no active symptoms in his leg or stump. No fevers, patient does express confusion over what all has been done to treat his foot in with the plan is; I have referred him back to Podiatry for those questions and have advised the nursing staff the patient has these questions. No bleeding complications, no other complications of revascularization. I would recommend the patient be treated with Xarelto 2.5 mg b.i.d. and clopidogrel 75 mg daily, and I would like him to return to Dr. Vernon in the office in about 4-6 weeks. I will sign off today. Vitals/Labs Vital Signs Date Time Temp Pulse Resp B/P (MAP) Pulse Ox O2 Delivery O2 Flow Rate FiO2 07/09/24 08:00 97.9 70 16 131/78 99 Room Air 0.0 07/08/24 19:40 21 Laboratory Tests 07/09/24 05:37 Medications Current Medications Aspirin 325 mg ONCE ONCE PO Last administered on 07/03/24at 00:50; Start 07/03/24 at 00:30; Stop 07/03/24 at 00:31; Status DC Iohexol 75 ml STK-MED ONCE IV; Start 07/03/24 at 00:40; Stop 07/03/24 at 00:44; Status DC Sodium Chloride 2,000 ml @ 0 mls/hr ONCE ONCE IV Last administered on 07/03/24at 01:37; Start 07/03/24 at 01:30; Stop 07/03/24 at 01:31; Status DC Piperacillin Sod/ Tazobactam Sod 3.375 gm Q8H IV Last administered on 07/03/24at 01:37; Start 07/03/24 at 01:30; Stop 07/03/24 at 03:03; Status DC Acetaminophen 1,000 mg ONCE ONCE PO Last administered on 07/03/24at 01:38; Start 07/03/24 at 02:00; Stop 07/03/24 at 02:01; Status DC Chlordiazepoxide HCl 25 mg Q8H PO Last administered on 07/08/24at 11:09; Start 07/03/24 at 03:00; Stop 07/10/24 at 02:59 Lorazepam 1 mg Q4H PRN IVP; Start 07/03/24 at 03:00; Stop 07/10/24 at 02:59 Pharmacy Profile Note 1 each PROTOCOL PRN MISC; Start 07/03/24 at 03:00; Stop 07/10/24 at 02:59 Heparin Sodium (Porcine) *calculation based on ACTUAL B... AD PRN IV Last administered on 07/03/24at 03:41; Start 07/03/24 at 04:00; Stop 07/03/24 at 03:51; Status DC Heparin Sodium/ Dextrose 250 ml @ 0 mls/hr Q6H IV Last administered on 07/06/24at 21:28; Start 07/03/24 at 04:00; Stop 07/07/24 at 15:46; Status DC Piperacillin Sod/ Tazobactam Sod 3.375 gm Q8H IVPB Last administered on 07/09/24at 01:19; Start 07/03/24 at 09:30; Stop 07/13/24 at 09:29 Sodium Chloride 50 ml AD IV; Start 07/03/24 at 03:00; Stop 07/03/24 at 11:34; Status DC Lactated Ringer's 2,448 ml @ 816 mls/hr ONCE ONCE IV; Start 07/03/24 at 03:00; Stop 07/03/24 at 05:59; Status DC Ondansetron HCl 4 mg Q6H PRN IV; Start 07/03/24 at 03:00; Stop 08/02/24 at 02:59 Nitroglycerin 0.5 inch Q8H TD Last administered on 07/09/24at 04:22; Start 07/03/24 at 03:00; Stop 08/02/24 at 02:59 Morphine Sulfate 2 mg Q4H PRN IVP; Start 07/03/24 at 03:30; Stop 07/08/24 at 06:29; Status DC Hydralazine HCl 10 mg Q6H PRN IV; Start 07/03/24 at 03:00; Stop 08/02/24 at 02:59 Famotidine 20 mg DAILY PO Last administered on 07/08/24at 08:53; Start 07/03/24 at 09:00; Stop 08/02/24 at 08:59 Acetaminophen 650 mg Q6H PRN PO; Start 07/03/24 at 03:00; Stop 08/02/24 at 02:59 Heparin Sodium (Porcine) 6,000 unit ONCE ONCE IJ; Start 07/03/24 at 03:30; Stop 07/03/24 at 03:31; Status DC Vancomycin HCl 1.25 gm ONCE IV; Start 07/03/24 at 11:30; Stop 07/03/24 at 11:33; Status DC Potassium Chloride 100 ml @ 50 mls/hr AD PRN IV; Start 07/03/24 at 12:00; Stop 08/02/24 at 11:59 Magnesium Sulfate 50 ml @ 0 mls/hr PROTOCOL PRN IV Last administered on 07/08/24at 11:06; Start 07/03/24 at 12:00; Stop 08/02/24 at 11:59 Leptospermum Honey 1 APPL DAILY TP Last administered on 07/08/24at 08:54; Start 07/03/24 at 14:00; Stop 08/02/24 at 13:59 Aspirin 81 mg DAILY PO Last administered on 07/08/24at 08:54; Start 07/04/24 at 09:00; Stop 08/03/24 at 08:59 Atorvastatin Calcium 40 mg HS PO Last administered on 07/04/24at 20:22; Start 07/03/24 at 21:00; Stop 07/05/24 at 15:02; Status DC Clopidogrel Bisulfate 75 mg DAILY PO Last administered on 07/08/24at 08:54; Start 07/04/24 at 09:00; Stop 08/03/24 at 08:59 Metoprolol Tartrate 25 mg BID PO Last administered on 07/08/24at 19:46; Start 07/03/24 at 21:00; Stop 08/02/24 at 20:59 Pregabalin 75 mg BID PO Last administered on 07/08/24at 19:46; Start 07/03/24 at 21:00; Stop 08/02/24 at 20:59 Miscellaneous Medication 15 units [id number] SQ; Start 07/04/24 at 07:30; Stop 07/03/24 at 14:11; Status DC Insulin Glargine 15 units BID SQ Last administered on 07/08/24at 19:47; Start 07/03/24 at 21:00; Stop 08/02/24 at 20:59 Miscellaneous Medication 50 mg BID PRN PO; Start 07/03/24 at 14:00; Stop 07/03/24 at 14:09; Status DC Potassium Chloride 100 ml @ 100 mls/hr AD PRN IV; Start 07/04/24 at 13:00; Stop 07/04/24 at 12:43; Status DC Potassium Chloride 20 meq AD PRN PO Last administered on 07/07/24at 15:38; Start 07/04/24 at 13:00; Stop 08/03/24 at 12:59 Potassium Chloride 20 meq AD PRN PO Last administered on 07/05/24at 17:10; Start 07/04/24 at 13:00; Stop 08/03/24 at 12:59 Gadoterate Meglumine 10 mmol STK-MED ONCE IV; Start 07/04/24 at 14:16; Stop 07/04/24 at 14:16; Status DC Thiamine HCl 100 mg DAILY PO Last administered on 07/08/24at 08:53; Start 07/05/24 at 09:00; Stop 08/04/24 at 08:59 Atorvastatin Calcium 80 mg HS PO Last administered on 07/08/24at 19:46; Start 07/05/24 at 21:00; Stop 08/04/24 at 20:59 Pharmacy Profile Note 1 each ONCE MISC; Start 07/07/24 at 13:00; Stop 07/07/24 at 12:55; Status DC Lidocaine HCl 20 ml STK-MED ONCE .ROUTE; Start 07/07/24 at 12:52; Stop 07/07/24 at 12:53; Status DC Iodixanol 100 ml STK-MED ONCE .ROUTE; Start 07/07/24 at 12:52; Stop 07/07/24 at 12:53; Status DC Heparin Sodium/ Sodium Chloride 1,000 ml @ As Directed STK-MED ONCE IV; Start 07/07/24 at 12:53; Stop 07/07/24 at 12:53; Status DC Nitroglycerin 50 mg STK-MED ONCE .ROUTE; Start 07/07/24 at 12:53; Stop 07/07/24 at 12:53; Status DC Tigecycline 100 mg/Sodium Chloride 100 ml @ 100 mls/hr ONCE ONCE IV Last administered on 07/07/24at 15:14; Start 07/07/24 at 13:00; Stop 07/07/24 at 13:59; Status DC Tigecycline 50 mg/ Sodium Chloride 100 ml @ 100 mls/hr Q12H IV Last administered on 07/09/24at 01:20; Start 07/08/24 at 01:00; Stop 07/15/24 at 00:59 Fentanyl Citrate 100 mcg STK-MED ONCE .ROUTE; Start 07/07/24 at 13:00; Stop 07/07/24 at 13:01; Status DC Midazolam HCl 2 mg STK-MED ONCE .ROUTE; Start 07/07/24 at 13:00; Stop 07/07/24 at 13:01; Status DC Heparin Sodium (Porcine) 10,000 unit STK-MED ONCE .ROUTE; Start 07/07/24 at 13:32; Stop 07/07/24 at 13:33; Status DC Sodium Chloride 1,000 ml @ 150 mls/hr Q6H40M IV Last administered on 07/07/24at 15:15; Start 07/07/24 at 14:00; Stop 07/07/24 at 17:59; Status DC Aspirin 325 mg STK-MED ONCE PO; Start 07/07/24 at 13:53; Stop 07/07/24 at 13:54; Status DC Clopidogrel Bisulfate 300 mg STK-MED ONCE .ROUTE; Start 07/07/24 at 13:54; Stop 07/07/24 at 13:54; Status DC Dextrose 50 ml STK-MED ONCE IV Last administered on 07/08/24at 23:28; Start 07/08/24 at 23:18; Stop 07/08/24 at 23:18; Status DC MARGIE PEREZ MD Jul 09, 2024 08:35
--- NOTE | 2024-07-09 12:40 | PN ---
INFECTIOUS DISEASE PROGRESS NOTE Date of Service: Jul 09, 2024 SUBJECTIVE: This is a 72-year-old male patient who was seen and examined at bedside in room 430. Patient is awake, alert and oriented x 3. Patient is status post status post peripheral angiogram with successful intervention of the right SFA stenosis on 07/07/2024. No reports of pain this morning. No fever, temperature is 97.9. Continues on Tygacil and zosyn. Preliminary Blood culture results growing gram positive rods. We will continue to follow on the final culture results. Pat ient will need 6 weeks of IV antibiotics and pending Case management evaluation for referral to [facility]. We will continue to follow patient's care. PHYSICAL EXAM EYES: Anicteric. Pupils equal and reactive. HENT: No oral thrush seen, moist Oral mucosa. NECK: Supple, no JVD or thyromegaly. LUNGS: Good air entry. No rales, no rhonchi. CARDIOVASCULAR: S1, S2 regular. No murmur heard. ABDOMEN: Soft, non tender, bowel sounds present, no organomegaly. CENTRAL NERVOUS SYSTEM: Awake, alert, oriented x 3. SKIN: No rashes, no swelling. LYMPHATICS: No peripheral lymphadenopathy. MUSCULOSKELETAL: No joint swelling, erythema or tenderness. 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 Ulcer involving the posterior aspect of the right lower leg. Ulcer involving the right stump. BACK: No deformity, no pressure ulcer. GENITOURINARY: No dysuria or hematuria. Vital Sign (Last 12 Hours) 07/09/24 07/09/24 07/09/24 04:29 08:00 11:55 Temp 97.7 97.9 97.9 Pulse 67 70 82 Resp 16 16 16 B/P (MAP) 124/75 131/78 125/80 Pulse Ox 99 99 100 O2 Delivery Room Air Room Air Room Air O2 Flow Rate 0.0 0.0 Intake & Output (last 24hrs) 07/08/24 07/08/24 07/09/24 15:00 23:00 07:00 Intake Total 200 ml 150.0 ml Output Total 600 ml 300 ml Balance -400 ml -150.0 ml LABS: Laboratory: Test 07/09/24 11:38 07/09/24 05:37 07/08/24 23:18 Range/Units Whole Blood Glucose 156 H 70-110 MG/DL White Blood Count 6.0 4.8-10.8 K/uL Red Blood Count 3.54 L 4.50-6.20 MIL/uL Hemoglobin 11.2 L 14.0-18.0 g/dL Hematocrit 32.4 L 42-54 % Mean Corpuscular Volume 91.5 79-99 fL Mean Corpuscular Hemoglobin 31.6 27.0-33.0 pg Mean Corpuscular Hemoglobin Concent 34.6 32.0-36.0 g/dL Red Cell Distribution Width 12.9 11.0-15.5 % Platelet Count 230 130-400 K/uL Mean Platelet Volume 10.4 7.5-10.5 fL Immature Granulocyte % (Auto) 0.5 0-1 % Neutrophils (%) (Auto) 58.2 40.0-77.0 % Lymphocytes (%) (Auto) 30.1 21.0-51.0 % Monocytes (%) (Auto) 9.7 3.0-13.0 % Eosinophils (%) (Auto) 1.0 0.0-8.0 % Basophils (%) (Auto) 0.5 0.0-5.0 % Neutrophils # (Auto) 3.5 1.8-7.7 K/uL Lymphocytes # (Auto) 1.8 1.0-4.8 K/uL Monocytes # (Auto) 0.6 0.1-1.0 K/uL Eosinophils # (Auto) 0.06 0.00-0.70 K/uL Basophils # (Auto) 0.03 0.00-0.20 K/uL Absolute Immature Granulocyte (auto 0.03 0-1 K/uL Nucleated Red Blood Cells 0.0 0.0-0.19 % Sodium Level 139 136-145 mmol/L Potassium Level 5.0 3.5-5.1 mmol/L Chloride Level 107 101-111 mmol/L Carbon Dioxide Level 26 21-32 mmol/L Blood Urea Nitrogen 29 H 7-18 mg/dL Creatinine 1.1 0.5-1.3 mg/dL Glomerular Filtration Rate Calc 78 >90 mL/min Random Glucose 175 H 70-105 mg/dL Total Calcium 8.9 8.5-10.1 mg/dL Magnesium Level 2.40 1.80-2.40 mg/dL Total Bilirubin 0.4 0.2-1.0 mg/dL Aspartate Amino Transf (AST/SGOT) 26 10-37 U/L Alanine Aminotransferase (ALT/SGPT) 28 12-78 U/L Alkaline Phosphatase 89 50-136 U/L Total Protein 7.2 6.0-8.3 g/dL Albumin 2.4 L 3.5-5.0 g/dL Bedside Glucose Comment Notified Nurse ASSESSMENT: Right foot stump ulcer with polymicrobial infection, Acinetobacter baumannii, Klebsiella oxytoca, Morganella morganii and Staphylococcus aureus. Right lower extremity cellulitis. Peripheral artery disease, status post abdominal aortogram with pelvic runoff with successful intervention of the right SFA stenosis on 07/07/2024. Possible angina pectoris. Elevated troponin. Diabetes mellitus. Obesity. PLAN: Continue Tygacil IV. Continue Zosyn IV. Continue GI prophylaxis. Continue antiplatelets. Continue wound care. Continue pain management. Continue thiamine. Continue monitoring glucose levels. Patient will need 6 weeks of IV antibiotics. Pending Case management evaluation for referral to [facility]. This case was reviewed and discussed with my supervising physician and the above assessment and plan was formulated and agreed upon. ATTESTATION BY PHYSICIAN I have seen and examined the patient. I reviewed the documentation, medical decision making, and treatment plan as noted by the mid-level provider above. I agree with the findings and plan of care. ÓMNICA MOSQUEDA MD, [facility] [employer] [facility] Jul 09, 2024 12:40
--- NOTE | 2024-07-09 18:25 | PN ---
[facility] PROGRESS NOTE Date of Service: Jul 09, 2024 Time of Service: 18:25 SUBJECTIVE: Mr. Patrick is a 59-year-old male that was seen and examined today on 07/03/2024. Patient is a good historian of personal health Patient states that he came to the emergency department with a chief complaint of chest pain. Onset was 07/02/2024 at 4:30 p.m.. Location is to left lower chest along the midclavicular line. Duration is on and off. Character is described as pressure. Symptoms are aggravated with, " walking around the bar. "Patient states he was at a local bar consuming alcohol prior to coming to the emergency department. There was no alleviating factors. Patient reports associated right foot pain. Today in the emergency department WBCs 12.2, left shift neutrophils 82.2%, glucose 184 mg/dL, high sensitivity troponin 183, BNP 249, urinalysis is unremarkable, urine toxicology is unremarkable, alcohol level is 25. Emergency room physician recommended that patient be admitted with a diagnosis of chest pain. Additionally patient presented with a heart rate of 112, combined with patient's WBCs of 12.2 and identified suspected source of infection being right lower extremity wounds patient met clinical sepsis criteria. 07/03/2024 The patient was examined at bedside. The patient states resolution of his chest pain completely. There is wound in his right lower extremity. His temperature is fluctuating and has slight fever. The patient appears very weak fatigued and tired. He was on prolonged courses of antibiotics for a longer duration. He is in mild distress due to pain from his foot. Coordinating care with the Wound customer support consultant cardiology team and Infectious Disease team. He was recently hospitalized for prolonged period for his right lower extremity wound infection. Discuss the goal of care with the patient. Evaluating and ruling out all causes of his chest pain. 07/04/2024 10AM Patient is seen and examined at the bedside. He denies chest pain, fever, chills. He complains of right foot pain. Blood culture results are negative. He is on heparin drip in view of NSTEMI. Chest x-ray and CT PE resulted in no acute findings. Urinalysis positive for leukocyte esterase. Troponin trended up from 800-1243. Right wound aspirate gram stain resulted in gram negative rods and Gram-positive cocci in clusters Staph aureus. 07/05/24: Patient seen and examined in the morning denies any new complaints. Denies chest pain denies shortness of breath denies fever or chills. MRI shows no osteomyelitis only cellulitis changes. Blood culture is growing Gram-positive meghna in one of the bottle final sensitivity and identification is still pending. Cardiology has already seen the patient and recommended conservative management with heparin drip for48 hours aspirin Plavix and high- intensity statin. Heparin drip will be stopped today July 06, 2024 the patient was examined at bedside, he had a history of ischemic cardiomyopathy, peripheral artery disease, chronic right foot infection with previous osteomyelitis, recent bacteremia. He is currently admitted for management of myositis and cellulitis of the right foot, peripheral artery disease and evaluation of elevated troponin. The patient remains hemodynamically stable, denies new complaints and verbalizes understanding of the treatment plan. No overnight events or complaints. No new chest pain, dyspnea, dizziness or palpitations. Heparin will be held in the a.m. aerobic active Bactrim baumannii culture positive. And blood cultures Gram- positive rods detected in 1-2 bottles pending speciation and sensitivities. And aerobic culture for Klebsiella oxytoca, Morganella morganii, staph aureus is pos itive. 07/07/24 patient was evaluated in the room this morning, he is very somnolent, he is on CIWA protocol taking Librium. He is in and out of consciousness. Apparently patient drinks four beers daily. Patient is scheduled for angio today with Dr. Muhammad 07/08/24 The patient underwent an abdominal angiogram with pelvic runoff followed by right lower extremity digital subtraction angiogram with drug coated balloon percutaneous transluminal angioplasty of the distal right superficial femoral artery. The intervention was successful significantly improving the 50% distal right SFA stenosis, which was reduced to 0% residual stenosis. The patient remains mildly drowsy but conversant, with no new complaints and no overnight events. Reports mild discomfort at the catheterization site and bilateral lower extremity discomfort. He understands the treatment plan and is awaiting transfer to a snf facility for IV antibiotic therapy for 6 weeks As per Infectious Disease suggestion. July 09, 2024 patient was examined at bedside today. No overnight events reported. The patient remains clinically stable and awaiting transfer to [facility] for long-term IV antibiotic therapy. The patient prefers to be transferred to a [place] snf facility. REVIEW OF SYSTEMS CONSTITUTIONAL: Denies fevers, chills, or night sweats. No unintentional weight loss reported. NEUROLOGICAL: Denies headache, amaurosis fugax, motor weakness, sensory deficit, vertigo/spinning sensation, gait abnormalities, or tremors. ENT: No hearing loss, otalgia, otorrhea, rhinitis, rhinorrhea, hoarseness, or sore throat. CARDIOVASCULAR: Denies any exertional angina, dyspnea on exertion, orthopnea, paroxysmal nocturnal dyspnea, palpitations, life-threatening arrhythmias, claudication. PULMONARY: Denies any shortness of breath, cough, phlegm/sputum, hemoptysis, pleuritic chest pain. SLEEP: Denies morning headaches, daytime somnolence or napping. Denies d ifficulty falling asleep, staying asleep, waking from sleep. Denies knowledge of snoring. GASTROINTESTINAL: Denies any type of dysphagia to either liquids or solids. Denies nausea, vomiting, pyrosis, early satiety, abdominal pain, diarrhea, constipation, or changes in stool consistency or caliber. Denies coffee-ground emesis, hematemesis, hematochezia, or melanotic stools. GENITOURINARY: Denies frequency, urgency, nocturia, hematuria or incontinence (Storage/Irritative symptoms.) Low urinary stream, straining to void, urinary intermittency or hesitancy, splitting of the voiding stream, terminal dribbling. ENDOCRINOLOGIC: Denies polyuria, polydipsia, polyphagia or heat/cold intolerances. HEMATOLOGIC: Denies thrombophilia/previous clots, or coagulopathy/bleeding disorders. ONCOLOGIC: Denies personal history of malignancy. DERMATOLOGIC: Denies rashes or pruritus. PSYCHIATRIC: Denies any suicidal or homicidal ideation. Denies hallucinations. PHYSICAL EXAM GENERAL APPEARANCE: The patient is awake, alert, and oriented, in no acute cardiopulmonary distress. NEUROLOGICAL: Cranial nerves II-XII grossly intact. Motor is 5/5 in bilateral upper and lower extremities proximal to distal. No sensory deficits. HEENT: Face is symmetric. Pupils are equal and reactive. Extraocular movements are intact. NECK: Supple. No JVD. No thyromegaly. No submental, submandibular, pre- /postauricular, occipital or supraclavicular lymphadenopathy. CHEST: Normal chest expansion. No Telemetry. LUNGS: Absence of any rales, rhonchi or any wheezing. CARDIOVASCULAR: Regular. S1 and S2 normal. No appreciable rubs, murmurs or gallops. ABDOMEN: Soft, nontender, and nondistended. There is no rebound, voluntary guarding, or rigidity. : Deferred. No Abrams. EXTREMITIES: Right foot with amputation dressing is clean and intact. SKIN: No skin breakdown. Vital Signs (last 8hr) Date Time Temp Pulse Resp B/P (MAP) Pulse Ox O2 Delivery O2 Flow Rate FiO2 07/09/24 16:00 98.1 77 17 128/84 97 Room Air 0.0 07/09/24 14:09 100 Room Air* 0 21 07/09/24 11:55 97.9 82 16 125/80 100 Room Air 0.0 LABS: Laboratory: Test 07/09/24 15:28 07/09/24 05:37 07/08/24 23:18 Range/Units Whole Blood Glucose 143 H 70-110 MG/DL White Blood Count 6.0 4.8-10.8 K/uL Red Blood Count 3.54 L 4.50-6.20 MIL/uL Hemoglobin 11.2 L 14.0-18.0 g/dL Hematocrit 32.4 L 42-54 % Mean Corpuscular Volume 91.5 79-99 fL Mean Corpuscular Hemoglobin 31.6 27.0-33.0 pg Mean Corpuscular Hemoglobin Concent 34.6 32.0-36.0 g/dL Red Cell Distribution Width 12.9 11.0-15.5 % Platelet Count 230 130-400 K/uL Mean Platelet Volume 10.4 7.5-10.5 fL Immature Granulocyte % (Auto) 0.5 0-1 % Neutrophils (%) (Auto) 58.2 40.0-77.0 % Lymphocytes (%) (Auto) 30.1 21.0-51.0 % Monocytes (%) (Auto) 9.7 3.0-13.0 % Eosinophils (%) (Auto) 1.0 0.0-8.0 % Basophils (%) (Auto) 0.5 0.0-5.0 % Neutrophils # (Auto) 3.5 1.8-7.7 K/uL Lymphocytes # (Auto) 1.8 1.0-4.8 K/uL Monocytes # (Auto) 0.6 0.1-1.0 K/uL Eosinophils # (Auto) 0.06 0.00-0.70 K/uL Basophils # (Auto) 0.03 0.00-0.20 K/uL Absolute Immature Granulocyte (auto 0.03 0-1 K/uL Nucleated Red Blood Cells 0.0 0.0-0.19 % Sodium Level 139 136-145 mmol/L Potassium Level 5.0 3.5-5.1 mmol/L Chloride Level 107 101-111 mmol/L Carbon Dioxide Level 26 21-32 mmol/L Blood Urea Nitrogen 29 H 7-18 mg/dL Creatinine 1.1 0.5-1.3 mg/dL Glomerular Filtration Rate Calc 78 >90 mL/min Random Glucose 175 H 70-105 mg/dL Total Calcium 8.9 8.5-10.1 mg/dL Magnesium Level 2.40 1.80-2.40 mg/dL Total Bilirubin 0.4 0.2-1.0 mg/dL Aspartate Amino Transf (AST/SGOT) 26 10-37 U/L Alanine Aminotransferase (ALT/SGPT) 28 12-78 U/L Alkaline Phosphatase 89 50-136 U/L Total Protein 7.2 6.0-8.3 g/dL Albumin 2.4 L 3.5-5.0 g/dL Bedside Glucose Comment Notified Nurse Current Medications Medications (Trade) Dose Ordered Sig/Jl Route PRN Reason Start Time Stop Time Status Last Admin Dose Admin Acetaminophen (TYLenol 325MG TAB) 650 mg Q6H PRN PO TEMPERATURE GREATER THAN 101.5 07/03/24 03:00 08/02/24 02:59 Aspirin (Aspirin 81mg Ec Tab) 81 mg DAILY PO 07/04/24 09:00 08/03/24 08:59 07/09/24 10:10 81 MG Atorvastatin Calcium (LIPItor 40MG) 40 mg HS PO 07/03/24 21:00 07/05/24 15:02 DC 07/04/24 20:22 40 MG Atorvastatin Calcium (LIPItor 40MG) 80 mg HS PO 07/05/24 21:00 08/04/24 20:59 07/08/24 19:46 80 MG Chlordiazepoxide HCl (LIBrium 25 MG CAP) 25 mg Q8H PO 07/03/24 03:00 07/10/24 02:59 07/09/24 18:11 25 MG Clopidogrel Bisulfate (plaVIX 75MG) 75 mg DAILY PO 07/04/24 09:00 08/03/24 08:59 07/09/24 10:11 75 MG Famotidine (Pepcid 20mg Tab) 20 mg DAILY PO 07/03/24 09:00 08/02/24 08:59 07/09/24 10:11 20 MG Heparin Sodium (Porcine) (HEParin 5,000 UNIT VIAL) *calculation based on ACTUAL B... AD PRN IV HEPARIN PROTOCOL 07/03/24 04:00 07/03/24 03:51 DC 07/03/24 03:41 6,000 UNIT Heparin Sodium/ Dextrose 250 ml @ 0 mls/hr Q6H IV 07/03/24 04:00 07/07/24 15:46 DC 07/06/24 21:28 10.34 MLS/HR Hydralazine HCl (APRESOLine 20MG INJ) 10 mg Q6H PRN IV For:SBP above 160;DBP above 90 07/03/24 03:00 08/02/24 02:59 Insulin Glargine (LANtus 100 UNITS/ML 10 ML VIAL) 15 units BID SQ 07/03/24 21:00 08/02/24 20:59 07/09/24 10:21 15 UNITS Leptospermum Honey (Appfricaney) 1 APPL DAILY TP 07/03/24 14:00 08/02/24 13:59 07/09/24 17:28 1 APPL Lorazepam (AtiVAN) 1 mg Q4H PRN IVP ALCOHOL WITHDRAWAL PROTOCOL 07/03/24 03:00 07/10/24 02:59 Magnesium Sulfate 50 ml @ 0 mls/hr PROTOCOL PRN IV Electrolyte abnormality 07/03/24 12:00 08/02/24 11:59 07/08/24 11:06 25 MLS/HR Metoprolol Tartrate (loprESSOR) 25 mg BID PO 07/03/24 21:00 08/02/24 20:59 07/09/24 10:11 25 MG Miscellaneous Medication (Insulin Degludec (Tresiba Flextouch U-100)) 15 units ACBKFST SQ 07/04/24 07:30 07/03/24 14:11 DC Miscellaneous Medication ([Tramadol ] ) 50 mg BID PRN PO P610 07/03/24 14:00 07/03/24 14:09 DC Morphine Sulfate (morPHINE 2MG SYG) 2 mg Q4H PRN IVP SEVERE PAIN (7-10) 07/03/24 03:30 07/08/24 06:29 DC Nitroglycerin (Nitroglycerin 1gm Oint) 0.5 inch Q8H TD 07/03/24 03:00 08/02/24 02:59 07/09/24 18:11 0.5 INCH Ondansetron HCl (zoFRAN 4MG INJ) 4 mg Q6H PRN IV NAUSEA/VOMITING 07/03/24 03:00 08/02/24 02:59 Pharmacy Profile Note (Pharmacy Communication) 1 each ONCE MISC 07/07/24 13:00 07/07/24 12:55 DC Pharmacy Profile Note (Pharmacy Communication) 1 each PROTOCOL PRN MISC ETOH Withdrawal Score changes 07/03/24 03:00 07/10/24 02:59 Piperacillin Sod/ Tazobactam Sod (Zosyn 3.375gm+NS 50ml) 3.375 gm Q8H IV 07/03/24 01:30 07/03/24 03:03 DC 07/03/24 01:37 3.375 GM Piperacillin Sod/ Tazobactam Sod (Zosyn 3.375gm+NS 50ml) 3.375 gm Q8H IVPB 07/03/24 09:30 07/13/24 09:29 07/09/24 17:25 3.375 GM Potassium Chloride 100 ml @ 50 mls/hr AD PRN IV POTASSIUM PROTOCOL 07/03/24 12:00 08/02/24 11:59 Potassium Chloride 100 ml @ 100 mls/hr AD PRN IV POTASSIUM PROTOCOL 07/04/24 13:00 07/04/24 12:43 DC Potassium Chloride (K-Dur/Klor-Con 20meq) 20 meq AD PRN PO POTASSIUM PROTOCOL 07/04/24 13:00 08/03/24 12:59 07/05/24 17:10 20 MEQ Potassium Chloride (KCl 10% Elixir 20meq/15ml) 20 meq AD PRN PO POTASSIUM PROTOCOL 07/04/24 13:00 08/03/24 12:59 07/07/24 15:38 20 MEQ Pregabalin ([id number]) 75 mg BID PO 07/03/24 21:00 08/02/24 20:59 07/09/24 10:11 75 MG Sodium Chloride 1,000 ml @ 150 mls/hr Q6H40M IV 07/07/24 14:00 07/07/24 17:59 DC 07/07/24 15:15 150 MLS/HR Sodium Chloride (NS 50ml) 50 ml AD IV 07/03/24 03:00 07/03/24 11:34 DC Thiamine HCl (Vitamin B-1) 100 mg DAILY PO 07/05/24 09:00 08/04/24 08:59 07/09/24 10:10 100 MG Tigecycline 50 mg/ Sodium Chloride 100 ml @ 100 mls/hr Q12H IV 07/08/24 01:00 07/15/24 00:59 07/09/24 17:25 100 MLS/HR Vancomycin HCl (Vancomycin 1.25 Gm/250 ml Bag) 1.25 gm ONCE IV 07/03/24 11:30 07/03/24 11:33 DC DIAGNOSTICS / RADIOLOGY: [ ABDOMINAL AORTOGRAM WITH PELVIC RUNOFF, FOLLOWED BY RIGHT LOWER EXTREMITY DIGITAL SUBTRACTION ARTERIOGRAM AND DCB-ENGRAVER HAND HARD METALS DISTAL RIGHT SUPERFICIAL FEMORAL INDICATION: ILIANA STAGE SIX PERIPHERAL ARTERIAL DISEASE TECHNIQUE: Patient was brought to the lab in a fasting state after informed consent and sedated 1 mg Versed and 50 mcg fentanyl. Under local anesthesia with 1% lidocaine in the left common femoral artery was punctured anteriorly using micropuncture technique with fluoroscopic and ultrasound guidance. A six Hungarian sheath was inserted. An Omni flush catheter was positioned in the distal abdominal aorta and an abdominal aortogram with pelvic runoff was obtained by digital subtraction angiography. The Omni flush was repositioned in the right common femoral and right lower extremity cine angiogram was obtained. We then exchanged for a 90 cm six Hungarian sheath which was positioned in the proximal popliteal and right infrapopliteal digital subtraction arteriography was carried out. We then withdrew the sheath, monitoring for pressure gradient relief, which identified at the distal SFA where there was a 50% radiolucent stenosis with a 40 mm gradient. 5200 units aqueous heparin was administered intravenously along with 300 mg clopidogrel and 325 mg aspirin. We then parked the distal end of the sheath in the mid SFA and wire the lesion with the advantage Glidewire, then dilated with a 40 x 6 mm Medtronic DCB. Results were inspected angiographically and the apparatus was removed. Hemostasis was obtained by use of Perclose with excellent hemostasis and no complications. Results: There is minimal calcification in the distal aorta and proximal right iliac and there is calcification in the wall of the right superficial femoral but the only stenoses RA 25% ostial stenosis of the left profunda, a 50% radiolucent stenosis of the distal right SFA in Pradeep's canal, and a 30% narrowing of the right popliteal. In the infrapopliteal vessels, there was a 90% stenosis in the distal 3rd of the peroneal. There is a total occlusion of the anterior tibial on the ankle. The right posterior tibial supplies the foot, which has undergone partial amputation previously. Interventional Results: the 50% radiolucent distal right SFA stenosis is reduced to a 0% residual with smooth intima and brisk runoff. Conclusions: Successful intervention on the distal right SFA stenosis. PATIENT: SAVANA PATRICK MR#: [id number] : 1965 SEX: M AGE: 59 LOCATION: [facility] ORDER 15 STATUS: ADM IN REPORT#: [id number] SERVICE 11 REASON: PAD ORDERING PHYSICIAN: STEPHEN MAURER MD PROCEDURE: ART U LE - US ARTERIAL UNILA LOW EXT DUPL US ARTERIAL UNILA LOW EXT DUPL HISTORY: Peripheral vascular disease with prior right foot amputation. COMPARISON: None TECHNIQUE: Right lower extremity arterial Doppler ultrasound study was performed. FINDINGS: There is triphasic waveforms to the distal superficial femoral artery with monophasic waveforms in the popliteal artery and posterior tibial artery. On the right, the peak systolic velocity of the common femoral artery is 113 cm/s, the proximal femoral artery is 87 cm/s, the mid femoral artery is 107 cm/s, the distal femoral artery is 88 cm/s, the popliteal artery is 88 cm/s, the posterior tibial artery artery is 38 cm/s. IMPRESSION: Patent outflow to the level of the distal superficial femoral artery with likely mild to moderately diseased popliteal and posterior tibial artery runoff. DICTATED BY: RJ YI DO DATE: 07/04/241921 ELECTRONICALLY SIGNED BY: RJ YI DO DATE: 07/04/241926 ] ASSESSMENT: ASSESSMENT: Chest pain, POA Non-STEMI, currently on heparin drip, POA Elevated cardiac enzymes, POA Right inefcted foot wound, POA Cellulitis of right lower extremity. POA. anemia / POA Sepsis, POA Alcohol dependence, POA Leukocytosis, POA Uncontrolled Diabetes mellitius type2, POA Hypertension Hyperlipidemia Type 2 diabetes mellitus Right internal carotid artery stenosis History of CVA in April 2022 Grade 1 diastolic heart failure by 2D echo on 05/26/2023 with EF 40-45% Peripheral artery disease right lower extremity by ultrasound on 04/14/2024]] Myositis /right foot POA PLAN: Peripheral artery disease / post peripheral angiogram and ENGRAVER HAND HARD METALS: ENGRAVER HAND HARD METALS with DC be of distal right SFA. monitor urine output and renal function. Optimize hydration status prior to annual monitor for postprocedural complication. Myocardial infraction continue aspirin continue clopidogrel 75 mg continue atorvastatin continue metoprolol start Xarelto 2.5 mg b.i.d. Right foot wound, right ankle wound: Wound gram stain revealed Gram-negative rods and Gram-positive cocci in clusters, staph aureus monitor for signs of worsening infection. Repeat WBC count and inflammatory markers in the am Follow up on wound culture results Wound Care Service recommended Medihoney dressings. Continue Zosyn IV And tigecycline 50 mg q.12h per ID recommendations. Sepsis, leukocytosis: Fluid resuscitation with lactated Ringer's 30 mL/kg. Continue antibiotic therapy with Zosyn and tigecycline, Reviewed patient's lactic acid, unremarkable. continue blood cultures to assess clearance. ID team following for targeted therapy. Avoid invasive cardiac workup elevated troponins likely secondary to sepsis or demand ischemia. Urinary tract infection, POA Reviewed patient's urinalysis which is mildly suggestive of UTI very few white blood cell count this could be a contaminated sample although squamous epithelial cells are rare. Differential diagnosis of UTI we will be covered by aforementioned antimicrobial therapy, Zosyn. Follow up on urine culture results repeat CBC tomorrow consider iron supplementation if anemia persists discontinue heparin in the a.m. tomorrow. Monitor APTT in the morning. Consider resuming DVT prophylaxis postprocedure if indicated. Continue aspirin 81 mg daily, atorvastatin 80 mg daily, clopidogrel 75 mg daily and metoprolol tartrate 25 mg b.i.d.. Alcohol dependence: Counseled patient on alcohol cessation. Librium 25 mg by mouth every 8 hours, we will monitor titrate As needed Ativan for alcohol withdrawal 1 mg every 4 hours Use CIWA-AR assessment tool Document EtOH withdrawal score Assess the need for seizure and aspiration precautions We will order thiamine preparation for the patient Diabetes mellitus type 2: Check hemoglobin A1c in a.m. Glucometer checks a.c. and HS 1800 ADA diet Humulin R sliding scale Hypertension, hyperlipidemia, right internal carotid artery stenosis, grade 1 diastolic heart failure Intake and output every shift. Daily weights Hydralazine 10 mg IV every 4 hours for systolic blood pressure greater than 160 mmHg, aspirin 81 mg daily, clopidogrel 75 mg daily, atorvastatin 80 mg HS. GI prophylaxis, famotidine DVT prophylaxis, patient will be on heparin drip as mentioned above, as per Cardiology recommendation Discharge planning and transfer plan patient is medically stable for transfer to SNF [facility] for IV antibiotic therapy for 6 weeks per ID recommendation AWAITING FINAL CONFIRMATION OF SNF ACCEPTANCE. ATTESTATION BY PHYSICIAN I have seen and examined the patient. I reviewed the documentation, medical decision making, and treatment plan as noted by the resident above. I agree with the findings and plan of care. Camilo Rowland MD, RAGHAVA R MD Jul 09, 2024 18:25
[2024-07-10] VITALS (7 sets, daily range): BP systolic 115–144; BP diastolic 54–81; PULSE 69–98; RESP 16–20; TEMP 97.7–98.8
--- NOTE | 2024-07-10 01:52 | NUR ---
loose stools patient haD 3 LOOSE BOWEL MOVEMENT, LOOSE BROWNISH WATERY., STOOL SPECIMEN COLLECTED SENT TO LAB
--- NOTE | 2024-07-10 01:53 | NUR ---
WOUND CHANGE DRESSING RIGHT LEG, ULCER POSTERIOR LOWER CALF, OPEN WOUND WITH SCANT AMOUNT OF SEROS SANGUIENOUS DRAINAGE, CLEANSED WITH SALINE, DAB DRY , APPLY MEDIHONEY, VASELINE GAUZE, ADAPTIC AND KERLIX ROLL, RIGHT STUMP OPEN ULCER, NO DRAINAGE, DRY, CLEANSED WITH NS, DAB DRY, APPLY MEDIHONEY, VASELINE GAUZE , ADAPTIC , KERLIX ROLL AND TAPE, TOLERATED WELL
[2024-07-10 05:30] LABS: BASOPHILS # (AUTO) 0.05 K/uL (0.00-0.20); BASOPHILS % (AUTO) 0.8 % (0.0-5.0); EOSINOPHILS # (AUTO) 0.23 K/uL (0.00-0.70); EOSINOPHILS % (AUTO) 3.7 % (0.0-8.0); HEMATOCRIT 30.9 % (42-54); IMMATURE GRANULOCYTE ABSOLUTE 0.03 K/uL (0-1); LYMPHOCYTES # (AUTO) 2.4 K/uL (1.0-4.8); LYMPHOCYTES % (AUTO) 38.1 % (21.0-51.0); MEAN CORPUSCULAR HEMOGLOBIN 31.5 pg (27.0-33.0); MEAN CORPUSCULAR VOLUME 90.1 fL (79-99); MONOCYTES # (AUTO) 0.7 K/uL (0.1-1.0); MONOCYTES % (AUTO) 11.1 % (3.0-13.0); NEUTROPHILS # (AUTO) 2.9 K/uL (1.8-7.7); NEUTROPHILS % (AUTO) 45.8 % (40.0-77.0); PLATELET COUNT (AUTO) 254 K/uL (130-400); RED BLOOD CELL COUNT(AUTO) 3.43 MIL/uL (4.50-6.20); RED CELL DISTRIBUTION WIDTH 13.4 % (11.0-15.5); WHITE BLOOD COUNT (AUTO) 6.3 K/uL (4.8-10.8)
[2024-07-10 05:57] LABS: ALBUMIN 2.6 g/dL (3.5-5.0); BILIRUBIN,TOTAL 0.4 mg/dL (0.2-1.0); CREATININE 1.2 mg/dL (0.5-1.3); MAGNESIUM 2.2 mg/dL (1.80-2.40); POTASSIUM 4.2 mmol/L (3.5-5.1); TOTAL PROTEIN, SERUM 7.4 g/dL (6.0-8.3)
[2024-07-10] MEDS ORDERED: cloPIDOgrel 75MG TAB PO SCH (09:00)
[2024-07-10] MEDS: RIVAROXABAN 2.5 MG TABLET PO SCH (09:22)
--- NOTE | 2024-07-10 13:30 | NUR ---
Order received and spoke to Maxine, patient's nurse. Requested WB clarification due to wound to R foot stump. PT team to follow.
[2024-07-10 17:21] LABS: INR 1.15 (0.85-1.15)
--- NOTE | 2024-07-10 18:14 | HMCIMG ---
PORTABLE CHEST RADIOGRAPH INDICATION: PICC LINE PLACEMENT COMPARISON: 07/03/2024 CTA chest FINDINGS: Tip of right PICC within the SVC. Heart size is normal. The pulmonary vascularity and maranda appear normal. No abnormal pulmonary parenchymal opacity or consolidation identified. No significant pleural effusion noted. No pneumothorax detected. IMPRESSION: Tip of right PICC within the SVC. No radiographic evidence for any acute cardiopulmonary process.
--- NOTE | 2024-07-10 18:41 | NUR ---
CALLED TO DR BUTCHER REGARDING PER PRIMARY DOCTOR REQUEST TO CHECK WITH WOUND CARE ON WEIGHT BEARING STATUS FOR PHYSICAL THERAPY MESSAGE LEFT . PENDING RESPONSE
--- NOTE | 2024-07-10 21:02 | PN ---
[facility] PROGRESS NOTE Date of Service: Jul 10, 2024 Time of Service: 21:01 SUBJECTIVE: Mr. Patrick is a 59-year-old male that was seen and examined today on 07/03/2024. Patient is a good historian of personal health Patient states that he came to the emergency department with a chief complaint of chest pain. Onset was 07/02/2024 at 4:30 p.m.. Location is to left lower chest along the midclavicular line. Duration is on and off. Character is described as pressure. Symptoms are aggravated with, " walking around the bar. "Patient states he was at a local bar consuming alcohol prior to coming to the emergency department. There was no alleviating factors. Patient reports associated right foot pain. Today in the emergency department WBCs 12.2, left shift neutrophils 82.2%, glucose 184 mg/dL, high sensitivity troponin 183, BNP 249, urinalysis is unremarkable, urine toxicology is unremarkable, alcohol level is 25. Emergency room physician recommended that patient be admitted with a diagnosis of chest pain. Additionally patient presented with a heart rate of 112, combined with patient's WBCs of 12.2 and identified suspected source of infection being right lower extremity wounds patient met clinical sepsis criteria. 07/03/2024 The patient was examined at bedside. The patient states resolution of his chest pain completely. There is wound in his right lower extremity. His temperature is fluctuating and has slight fever. The patient appears very weak fatigued and tired. He was on prolonged courses of antibiotics for a longer duration. He is in mild distress due to pain from his foot. Coordinating care with the Wound supervisor home energy consultant cardiology team and Infectious Disease team. He was recently hospitalized for prolonged period for his right lower extremity wound infection. Discuss the goal of care with the patient. Evaluating and ruling out all causes of his chest pain. 07/04/2024 10AM Patient is seen and examined at the bedside. He denies chest pain, fever, chills. He complains of right foot pain. Blood culture results are negative. He is on heparin drip in view of NSTEMI. Chest x-ray and CT PE resulted in no acute findings. Urinalysis positive for leukocyte esterase. Troponin trended up from 800-1243. Right wound aspirate gram stain resulted in gram negative rods and Gram-positive cocci in clusters Staph aureus. 07/05/24: Patient seen and examined in the morning denies any new complaints. Denies chest pain denies shortness of breath denies fever or chills. MRI shows no osteomyelitis only cellulitis changes. Blood culture is growing Gram-positive meghna in one of the bottle final sensitivity and identification is still pending. Cardiology has already seen the patient and recommended conservative management with heparin drip for48 hours aspirin Plavix and high- intensity statin. Heparin drip will be stopped today July 06, 2024 the patient was examined at bedside, he had a history of ischemic cardiomyopathy, peripheral artery disease, chronic right foot infection with previous osteomyelitis, recent bacteremia. He is currently admitted for management of myositis and cellulitis of the right foot, peripheral artery disease and evaluation of elevated troponin. The patient remains hemodynamically stable, denies new complaints and verbalizes understanding of the treatment plan. No overnight events or complaints. No new chest pain, dyspnea, dizziness or palpitations. Heparin will be held in the a.m. aerobic active Bactrim baumannii culture positive. And blood cultures Gram- positive rods detected in 1-2 bottles pending speciation and sensitivities. And aerobic culture for Klebsiella oxytoca, Morganella morganii, staph aureus is pos itive. 07/07/24 patient was evaluated in the room this morning, he is very somnolent, he is on CIWA protocol taking Librium. He is in and out of consciousness. Apparently patient drinks four beers daily. Patient is scheduled for angio today with Dr. Muhammad 07/08/24 The patient underwent an abdominal angiogram with pelvic runoff followed by right lower extremity digital subtraction angiogram with drug coated balloon percutaneous transluminal angioplasty of the distal right superficial femoral artery. The intervention was successful significantly improving the 50% distal right SFA stenosis, which was reduced to 0% residual stenosis. The patient remains mildly drowsy but conversant, with no new complaints and no overnight events. Reports mild discomfort at the catheterization site and bilateral lower extremity discomfort. He understands the treatment plan and is awaiting transfer to a halfway facility for IV antibiotic therapy for 6 weeks As per Infectious Disease suggestion. July 09, 2024 patient was examined at bedside today. No overnight events reported. The patient remains clinically stable and awaiting transfer to [facility] for long-term IV antibiotic therapy. The patient prefers to be transferred to a [place] halfway facility. 07/10/24 patient was examined at bedside today. No overnight events reported. The patient remains clinically stable and awaiting transfer to [facility] for long-term IV antibiotic therapy. The patient prefers to be transferred to a [facility] REVIEW OF SYSTEMS CONSTITUTIONAL: Denies fevers, chills, or night sweats. No unintentional weight loss reported. NEUROLOGICAL: Denies headache, amaurosis fugax, motor weakness, sensory deficit, vertigo/spinning sensation, gait abnormalities, or tremors. ENT: No hearing loss, otalgia, otorrhea, rhinitis, rhinorrhea, hoarseness, or sore throat. CARDIOVASCULAR: Denies any exertional angina, dyspnea on exertion, orthopnea, paroxysmal nocturnal dyspnea, palpitations, life-threatening arrhythmias, claudication. PULMONARY: Denies any shortness of breath, cough, phlegm/sputum, hemoptysis, pleuritic chest pain. SLEEP: Denies morning headaches, daytime somnolence or napping. Denies difficulty falling asleep, staying asleep, waking from sleep. Denies knowledge of snoring. GASTROINTESTINAL: Denies any type of dysphagia to either liquids or solids. Denies nausea, vomiting, pyrosis, early satiety, abdominal pain, diarrhea, constipation, or changes in stool consistency or caliber. Denies coffee-ground emesis, hematemesis, hematochezia, or melanotic stools. GENITOURINARY: Denies frequency, urgency, nocturia, hematuria or incontinence (Storage/Irritative symptoms.) Low urinary stream, straining to void, urinary intermittency or hesitancy, splitting of the voiding stream, terminal dribbling. ENDOCRINOLOGIC: Denies polyuria, polydipsia, polyphagia or heat/cold intolerances. HEMATOLOGIC: Denies thrombophilia/previous clots, or coagulopathy/bleeding disorders. ONCOLOGIC: Denies personal history of malignancy. DERMATOLOGIC: Denies rashes or pruritus. PSYCHIATRIC: Denies any suicidal or homicidal ideation. Denies hallucinations. PHYSICAL EXAM GENERAL APPEARANCE: The patient is awake, alert, and oriented, in no acute cardiopulmonary distress. NEUROLOGICAL: Cranial nerves II-XII grossly intact. Motor is 5/5 in bilateral upper and lower extremities proximal to distal. No sensory deficits. HEENT: Face is symmetric. Pupils are equal and reactive. Extraocular movements are intact. NECK: Supple. No JVD. No thyromegaly. No submental, submandibular, pre-/post auricular, occipital or supraclavicular lymphadenopathy. CHEST: Normal chest expansion. No Telemetry. LUNGS: Absence of any rales, rhonchi or any wheezing. CARDIOVASCULAR: Regular. S1 and S2 normal. No appreciable rubs, murmurs or gallops. ABDOMEN: Soft, nontender, and nondistended. There is no rebound, voluntary guarding, or rigidity. : Deferred. No Abrams. EXTREMITIES: Right foot with amputation dressing is clean and intact. SKIN: No skin breakdown. Vital Signs (last 8hr) Date Time Temp Pulse Resp B/P (MAP) Pulse Ox O2 Delivery O2 Flow Rate FiO2 07/10/24 20:15 97.9 75 20 144/81 100 Room Air 07/10/24 16:39 97.7 72 17 130/72 99 Room Air LABS: Laboratory: Test 07/10/24 20:15 07/10/24 16:30 07/10/24 05:04 07/08/24 23:18 Range/Units Whole Blood Glucose 83 70-110 MG/DL Prothrombin Time 12.0 H 9.6-11.6 SEC Prothromb Time International Ratio 1.15 0.85-1.15 White Blood Count 6.3 4.8-10.8 K/uL Red Blood Count 3.43 L 4.50-6.20 MIL/uL Hemoglobin 10.8 L 14.0-18.0 g/dL Hematocrit 30.9 L 42-54 % Mean Corpuscular Volume 90.1 79-99 fL Mean Corpuscular Hemoglobin 31.5 27.0-33.0 pg Mean Corpuscular Hemoglobin Concent 35.0 32.0-36.0 g/dL Red Cell Distribution Width 13.4 11.0-15.5 % Platelet Count 254 130-400 K/uL Mean Platelet Volume 10.6 H 7.5-10.5 fL Immature Granulocyte % (Auto) 0.5 0-1 % Neutrophils (%) (Auto) 45.8 40.0-77.0 % Lymphocytes (%) (Auto) 38.1 21.0-51.0 % Monocytes (%) (Auto) 11.1 3.0-13.0 % Eosinophils (%) (Auto) 3.7 0.0-8.0 % Basophils (%) (Auto) 0.8 0.0-5.0 % Neutrophils # (Auto) 2.9 1.8-7.7 K/uL Lymphocytes # (Auto) 2.4 1.0-4.8 K/uL Monocytes # (Auto) 0.7 0.1-1.0 K/uL Eosinophils # (Auto) 0.23 0.00-0.70 K/uL Basophils # (Auto) 0.05 0.00-0.20 K/uL Absolute Immature Granulocyte (auto 0.03 0-1 K/uL Nucleated Red Blood Cells 0.0 0.0-0.19 % Sodium Level 140 136-145 mmol/L Potassium Level 4.2 3.5-5.1 mmol/L Chloride Level 108 101-111 mmol/L Carbon Dioxide Level 27 21-32 mmol/L Blood Urea Nitrogen 26 H 7-18 mg/dL Creatinine 1.2 0.5-1.3 mg/dL Glomerular Filtration Rate Calc 71 >90 mL/min Random Glucose 84 # 70-105 mg/dL Total Calcium 8.9 8.5-10.1 mg/dL Magnesium Level 2.20 1.80-2.40 mg/dL Total Bilirubin 0.4 0.2-1.0 mg/dL Aspartate Amino Transf (AST/SGOT) 32 10-37 U/L Alanine Aminotransferase (ALT/SGPT) 31 12-78 U/L Alkaline Phosphatase 91 50-136 U/L Total Protein 7.4 6.0-8.3 g/dL Albumin 2.6 L 3.5-5.0 g/dL Bedside Glucose Comment Notified Nurse Current Medications Medications (Trade) Dose Ordered Sig/Jl Route PRN Reason Start Time Stop Time Status Last Admin Dose Admin Acetaminophen (TYLenol 325MG TAB) 650 mg Q6H PRN PO TEMPERATURE GREATER THAN 101.5 07/03/24 03:00 08/02/24 02:59 Aspirin (Aspirin 81mg Ec Tab) 81 mg DAILY PO 07/04/24 09:00 08/03/24 08:59 07/10/24 09:21 81 MG Atorvastatin Calcium (LIPItor 40MG) 40 mg HS PO 07/03/24 21:00 07/05/24 15:02 DC 07/04/24 20:22 40 MG Atorvastatin Calcium (LIPItor 40MG) 80 mg HS PO 07/05/24 21:00 08/04/24 20:59 07/09/24 20:51 80 MG Chlordiazepoxide HCl (LIBrium 25 MG CAP) 25 mg Q8H PO 07/03/24 03:00 07/10/24 02:59 DC 07/09/24 18:11 25 MG Clopidogrel Bisulfate (plaVIX 75MG) 75 mg DAILY PO 07/04/24 09:00 08/03/24 08:59 07/10/24 09:22 75 MG Clopidogrel Bisulfate (plaVIX 75MG) 75 mg DAILY PO 07/10/24 09:00 07/09/24 22:47 DC Famotidine (Pepcid 20mg Tab) 20 mg DAILY PO 07/03/24 09:00 08/02/24 08:59 07/10/24 09:21 20 MG Heparin Sodium (Porcine) (HEParin 5,000 UNIT VIAL) *calculation based on ACTUAL B... AD PRN IV HEPARIN PROTOCOL 07/03/24 04:00 07/03/24 03:51 DC 07/03/24 03:41 6,000 UNIT Heparin Sodium/ Dextrose 250 ml @ 0 mls/hr Q6H IV 07/03/24 04:00 07/07/24 15:46 DC 07/06/24 21:28 10.34 MLS/HR Hydralazine HCl (APRESOLine 20MG INJ) 10 mg Q6H PRN IV For:SBP above 160;DBP above 90 07/03/24 03:00 08/02/24 02:59 Insulin Glargine (LANtus 100 UNITS/ML 10 ML VIAL) 15 units BID SQ 07/03/24 21:00 08/02/24 20:59 07/10/24 09:19 15 UNITS Leptospermum Honey (Medihoney) 1 APPL DAILY TP 07/03/24 14:00 08/02/24 13:59 07/10/24 09:22 1 APPL Lorazepam (AtiVAN) 1 mg Q4H PRN IVP ALCOHOL WITHDRAWAL PROTOCOL 07/03/24 03:00 07/10/24 02:59 DC Magnesium Sulfate 50 ml @ 0 mls/hr PROTOCOL PRN IV Electrolyte abnormality 07/03/24 12:00 08/02/24 11:59 07/08/24 11:06 25 MLS/HR Metoprolol Tartrate (loprESSOR) 25 mg BID PO 07/03/24 21:00 08/02/24 20:59 07/10/24 09:21 25 MG Miscellaneous Medication (Insulin Degludec (Tresiba Flextouch U-100)) 15 units ACBKFST SQ 07/04/24 07:30 07/03/24 14:11 DC Miscellaneous Medication ([Tramadol ] ) 50 mg BID PRN PO P610 07/03/24 14:00 07/03/24 14:09 DC Morphine Sulfate (morPHINE 2MG SYG) 2 mg Q4H PRN IVP SEVERE PAIN (7-10) 07/03/24 03:30 07/08/24 06:29 DC Nitroglycerin (Nitroglycerin 1gm Oint) 0.5 inch Q8H TD 07/03/24 03:00 08/02/24 02:59 07/10/24 15:02 0.5 INCH Ondansetron HCl (zoFRAN 4MG INJ) 4 mg Q6H PRN IV NAUSEA/VOMITING 07/03/24 03:00 08/02/24 02:59 Pharmacy Profile Note (Pharmacy Communication) 1 each ONCE MISC 07/07/24 13:00 07/07/24 12:55 DC Pharmacy Profile Note (Pharmacy Communication) 1 each PROTOCOL PRN MISC ETOH Withdrawal Score changes 07/03/24 03:00 07/10/24 02:59 DC Piperacillin Sod/ Tazobactam Sod (Zosyn 3.375gm+NS 50ml) 3.375 gm Q8H IV 07/03/24 01:30 07/03/24 03:03 DC 07/03/24 01:37 3.375 GM Piperacillin Sod/ Tazobactam Sod (Zosyn 3.375gm+NS 50ml) 3.375 gm Q8H IVPB 07/03/24 09:30 07/13/24 09:29 07/10/24 15:02 3.375 GM Potassium Chloride 100 ml @ 50 mls/hr AD PRN IV POTASSIUM PROTOCOL 07/03/24 12:00 08/02/24 11:59 Potassium Chloride 100 ml @ 100 mls/hr AD PRN IV POTASSIUM PROTOCOL 07/04/24 13:00 07/04/24 12:43 DC Potassium Chloride (K-Dur/Klor-Con 20meq) 20 meq AD PRN PO POTASSIUM PROTOCOL 07/04/24 13:00 08/03/24 12:59 07/05/24 17:10 20 MEQ Potassium Chloride (KCl 10% Elixir 20meq/15ml) 20 meq AD PRN PO POTASSIUM PROTOCOL 07/04/24 13:00 08/03/24 12:59 07/07/24 15:38 20 MEQ Pregabalin ([id number]) 75 mg BID PO 07/03/24 21:00 08/02/24 20:59 07/10/24 09:22 75 MG Rivaroxaban (Xarelto) 2.5 mg BID PO 07/10/24 09:00 08/10/24 12:00 07/10/24 09:22 2.5 MG Sodium Chloride 1,000 ml @ 150 mls/hr Q6H40M IV 07/07/24 14:00 07/07/24 17:59 DC 07/07/24 15:15 150 MLS/HR Sodium Chloride (NS 50ml) 50 ml AD IV 07/03/24 03:00 07/03/24 11:34 DC Thiamine HCl (Vitamin B-1) 100 mg DAILY PO 07/05/24 09:00 08/04/24 08:59 07/10/24 09:21 100 MG Tigecycline 50 mg/ Sodium Chloride 100 ml @ 100 mls/hr Q12H IV 07/08/24 01:00 07/15/24 00:59 07/10/24 15:02 100 MLS/HR Vancomycin HCl (Vancomycin 1.25 Gm/250 ml Bag) 1.25 gm ONCE IV 07/03/24 11:30 07/03/24 11:33 DC DIAGNOSTICS / RADIOLOGY: [ ] ASSESSMENT: ASSESSMENT: Chest pain, POA Non-STEMI, currently on heparin drip, POA Elevated cardiac enzymes, POA Right inefcted foot wound, POA Cellulitis of right lower extremity. POA. anemia / POA Sepsis, POA Alcohol dependence, POA Leukocytosis, POA Uncontrolled Diabetes mellitius type2, POA Hypertension Hyperlipidemia Type 2 diabetes mellitus Right internal carotid artery stenosis History of CVA in April 2022 Grade 1 diastolic heart failure by 2D echo on 05/26/2023 with EF 40-45% Peripheral artery disease right lower extremity by ultrasound on 04/14/2024]] Myositis /right foot POA PLAN: Peripheral artery disease / post peripheral angiogram and FACILITIES OFFICER: FACILITIES OFFICER with DC be of distal right SFA. monitor urine output and renal function. Optimize hydration status prior to annual monitor for postprocedural complication. Myocardial infraction continue aspirin continue clopidogrel 75 mg continue atorvastatin continue metoprolol start Xarelto 2.5 mg b.i.d. Right foot wound, right ankle wound: Wound gram stain revealed Gram-negative rods and Gram-positive cocci in clusters, staph aureus monitor for signs of worsening infection. Repeat WBC count and inflammatory markers in the am Follow up on wound culture results Wound Care Service recommended Medihoney dressings. Continue Zosyn IV And tigecycline 50 mg q.12h per ID recommendations. Sepsis, leukocytosis: Fluid resuscitation with lactated Ringer's 30 mL/kg. Continue antibiotic therapy with Zosyn and tigecycline, Reviewed patient's lactic acid, unremarkable. continue blood cultures to assess clearance. ID team following for targeted therapy. Avoid invasive cardiac workup elevated troponins likely secondary to sepsis or demand ischemia. Urinary tract infection, POA Reviewed patient's urinalysis which is mildly suggestive of UTI very few white blood cell count this could be a contaminated sample although squamous epithelial cells are rare. Differential diagnosis of UTI we will be covered by aforementioned antimicrobial therapy, Zosyn. Follow up on urine culture results repeat CBC tomorrow consider iron supplementation if anemia persists discontinue heparin in the a.m. tomorrow. Monitor APTT in the morning. Consider resuming DVT prophylaxis postprocedure if indicated. Continue aspirin 81 mg daily, atorvastatin 80 mg daily, clopidogrel 75 mg daily and metoprolol tartrate 25 mg b.i.d.. Alcohol dependence: Counseled patient on alcohol cessation. Librium 25 mg by mouth every 8 hours, we will monitor titrate As needed Ativan for alcohol withdrawal 1 mg every 4 hours Use CIWA-AR assessment tool Document EtOH withdrawal score Assess the need for seizure and aspiration precautions We will order thiamine preparation for the patient Diabetes mellitus type 2: Check hemoglobin A1c in a.m. Glucometer checks a.c. and HS 1800 ADA diet Humulin R sliding scale Hypertension, hyperlipidemia, right internal carotid artery stenosis, grade 1 diastolic heart failure Intake and output every shift. Daily weights Hydralazine 10 mg IV every 4 hours for systolic blood pressure greater than 160 mmHg, aspirin 81 mg daily, clopidogrel 75 mg daily, atorvastatin 80 mg HS. GI prophylaxis, famotidine DVT prophylaxis, patient will be on heparin drip as mentioned above, as per Cardiology recommendation Discharge planning and transfer plan patient is medically stable for transfer to SNF [facility] for IV antibiotic therapy for 6 weeks per ID recommendation AWAITING FINAL CONFIRMATION OF SNF ACCEPTANCE. MAHIN BROCK MD Jul 10, 2024 21:02
--- NOTE | 2024-07-10 21:43 | PN ---
INFECTIOUS DISEASE FOLLOWUP NOTE DATE OF SERVICE: 07/10/2024 SUBJECTIVE: The patient is seen and examined at bedside today. The patient has no fever, no chills. Pain to the right foot is controlled. No sore throat or rhinorrhea. No depression. No suicidal ideation. No bleeding tendency. No rashes or itchiness. PHYSICAL EXAMINATION: VITAL SIGNS: Temperature today 97.5. EYES: No icterus. Pupils equal and reactive. HENT: No oral thrush seen. Moist oral mucosa. NECK: Supple, no JVD or thyromegaly. LUNGS: Good air entry. No rales, no rhonchi. CARDIOVASCULAR: S1, S2 regular. No murmur heard. ABDOMEN: Full, soft. Bowel sound is present. CENTRAL NERVOUS SYSTEM: Awake, alert and oriented x 3. No focal deficits. SKIN: No rashes, no itchiness. LYMPHATIC: There is inguinal lymphadenopathy. BACK: No deformity, no pressure ulcer. EXTREMITIES: Ulcer involving the left foot stump. ASSESSMENT: A 59-year-old male with multiple problems including: * Left foot stump ulcer. * Cellulitis. * Polymicrobic infection. * Diabetes mellitus. * Hypertension. * Chronic alcohol use. * Infection with multidrug resistant organism. PLAN: * Continue current management. * Continue wound care. * Continue tigecycline. * Continue Zosyn. * Continue antidiabetic. * Monitor electrolytes. * Continue GI prophylaxis. TID: [id number] RECEIPT: [id number]
[2024-07-11] VITALS (7 sets, daily range): BP systolic 90–139; BP diastolic 50–75; PULSE 56–83; RESP 16–18; TEMP 97.6–98.9; O2SAT 98
[2024-07-11 03:42] LABS: BASOPHILS # (AUTO) 0.04 K/uL (0.00-0.20); BASOPHILS % (AUTO) 0.7 % (0.0-5.0); EOSINOPHILS # (AUTO) 0.14 K/uL (0.00-0.70); EOSINOPHILS % (AUTO) 2.6 % (0.0-8.0); HEMATOCRIT 31.4 % (42-54); IMMATURE GRANULOCYTE ABSOLUTE 0.03 K/uL (0-1); LYMPHOCYTES # (AUTO) 2.1 K/uL (1.0-4.8); LYMPHOCYTES % (AUTO) 38.5 % (21.0-51.0); MEAN CORPUSCULAR HEMOGLOBIN 30.7 pg (27.0-33.0); MEAN CORPUSCULAR HGB CONC 33.4 g/dL (32.0-36.0); MEAN CORPUSCULAR VOLUME 91.8 fL (79-99); MONOCYTES # (AUTO) 0.6 K/uL (0.1-1.0); MONOCYTES % (AUTO) 10.8 % (3.0-13.0); NEUTROPHILS # (AUTO) 2.6 K/uL (1.8-7.7); NEUTROPHILS % (AUTO) 46.9 % (40.0-77.0); PLATELET COUNT (AUTO) 258 K/uL (130-400); RED BLOOD CELL COUNT(AUTO) 3.42 MIL/uL (4.50-6.20); RED CELL DISTRIBUTION WIDTH 13.1 % (11.0-15.5); WHITE BLOOD COUNT (AUTO) 5.5 K/uL (4.8-10.8)
[2024-07-11 03:56] LABS: ALBUMIN 2.4 g/dL (3.5-5.0); BILIRUBIN,TOTAL 0.5 mg/dL (0.2-1.0); CREATININE 1.3 mg/dL (0.5-1.3); TOTAL PROTEIN, SERUM 7.1 g/dL (6.0-8.3)
--- NOTE | 2024-07-11 08:00 | NUR ---
ASSISTED DR. SAKINA BUTCHER ON WOUND CARE.
--- NOTE | 2024-07-11 08:45 | CONS ---
CONSULTATION NOTE Date of Service: Jul 11, 2024 Reason for Consultation: [ Right posterior leg ulcer/right foot stump ulcer ] Requesting Physician: [Hospitalist team ] HISTORY OF PRESENT ILLNESS: History of Present Illness Mr. Patrick is a 59-year-old male that was seen and examined today on 07/03/2024. Patient is a good historian of personal health Patient states that he came to the emergency department with a chief complaint of chest pain. Onset was 07/02/2024 at 4:30 p.m.. Location is to left lower chest along the midclavicular line. Duration is on and off. Character is described as pressure. Symptoms are aggravated with, " walking around the bar. "Patient states he was at a local bar consuming alcohol prior to coming to the emergency department. There was no alleviating factors. Patient reports associated right foot pain. Today in the emergency department WBCs 12.2, left shift neutrophils 82.2%, glucose 184 mg/dL, high sensitivity troponin 183, BNP 249, urinalysis is unremarkable, urine toxicology is unremarkable, alcohol level is 25. Emergency room physician recommended that patient be admitted with a diagnosis of chest pain. Additionally patient presented with a heart rate of 112, combined with patient's WBCs of 12.2 and identified suspected source of infection being right lower extremity wounds patient met clinical sepsis criteria. 07/11/2024 this is a 59-year-old male seen at the bedside for initial wound care evaluation and management of a non healing wound on the right posterior leg, the wound with 100% granulation tissue no sign of infection. Patient has been doing the wound care himself. Also having an ulcer on the plantar aspect of the right foot stump, per patient the ulcer has been treated by Dr. Godfrey distiller. No other concerns from the wound care standpoint at this time. No family at the bedside. Primary nurse assisting me with the physical exam. REVIEW OF SYSTEMS CONSTITUTIONAL: Denies fever, chills, or fatigue. HEAD/FACE: No signs of trauma. EENT: Denies eye pain, blurred vision, double vision, or light sensitivity. RESPIRATORY: Denies shortness of breath, cough, wheezing CARDIOVASCULAR: Denies chest pain, palpitation, syncope GASTROINTESTINAL/ABDOMINAL: Denies abdominal pain, constipation, diarrhea, nausea or vomiting GENITOURINARY: Denies dysuria or hematuria. MUSCULOSKELETAL: Denies joint pain, tenderness, or trauma. INTEGUMENTARY: Nonhealing wound on the right posterior leg. Nonhealing wound on the plantar aspect of the right foot stump. NEUROLOGICAL/PSYCH: Denies anxiety, depression, heat or cold intolerance. ADDITIONAL PAST MEDICAL HISTORY: [ Cellulitis of the right foot Necrotizing infection of the right foot Osteomyelitis of second and fourth toe of the right foot Hypertension Hyperlipidemia Type 2 diabetes mellitus Right internal carotid artery stenosis History of CVA in April 2022 Grade 1 diastolic heart failure by 2D echo on 05/26/2023 with EF 40-45% Peripheral artery disease right lower extremity by ultrasound on 04/14/2024] Surgical history: [ Amputation of left great toe in 04/2022 Open transmetatarsal amputation of right foot February 13, 2023 Chopart's amputation of the right foot Prior history of colostomy with reversal in about 5 to 6 years ago, history of abdominal hernia surgery, Partial left great toe amputation with repair and anastomosis of extensor hallucis longus to the flexor hallucis longus tendons by Dr. 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 Patient drinks 12 beers daily that are 12 oz each. Patient denies drug use. Patient lives with his mom Richelle Leone. Patient has good access to health care through his insurance. Patient denies difficulty pain is bills. 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 Patient denies difficulty pain is bills. Coded Allergies: No Known Allergies (Verified Allergy, Severe, 02/17/15) PHYSICAL EXAM EYES: Anicteric. Pupils equal and reactive. HENT: No oral thrush seen, moist Oral mucosa NECK: Supple, no JVD or thyromegaly. LUNGS: Good air entry. No rales, no rhonchi. CARDIOVASCULAR: S1, S2 regular. No murmur heard. ABDOMEN: Soft, non tender, bowel sounds present, no organomegaly CENTRAL NERVOUS SYSTEM: Awake, alert, oriented x 3. No focal deficits. SKIN: 10 cm wound on the right posterior leg with good granulation tissue no sign of infection. 3 cm in diameter ulcer on the right foot stump affecting the plantar aspect. LYMPHATICS: No peripheral lymphadenopathy MUSCULOSKELETAL: No joint swelling, erythema or tenderness. EXTREMITIES: No cyanosis or clubbing BACK: No deformity, no pressure ulcer. GENITOURINARY: No dysuria or hematuria Vital Sign (Last 24 Hours) 07/10/24 07/11/24 20:00 07:52 Temp 98.2 Pulse 59 Resp 18 B/P (MAP) 139/72 Pulse Ox 98 O2 Delivery Room Air O2 Flow Rate 0 FiO2 21 Intake & Output (last 24hrs) 07/10/24 07/10/24 07/11/24 15:00 23:00 07:00 Intake Total 1250 ml 150.0 ml Output Total 400 ml Balance 1250 ml -250.0 ml LABS: Laboratory: Test 07/11/24 05:15 07/11/24 03:01 07/10/24 16:30 07/10/24 05:04 Range/Units Whole Blood Glucose 75 70-110 MG/DL White Blood Count 5.5 4.8-10.8 K/uL Red Blood Count 3.42 L 4.50-6.20 MIL/uL Hemoglobin 10.5 L 14.0-18.0 g/dL Hematocrit 31.4 L 42-54 % Mean Corpuscular Volume 91.8 79-99 fL Mean Corpuscular Hemoglobin 30.7 27.0-33.0 pg Mean Corpuscular Hemoglobin Concent 33.4 32.0-36.0 g/dL Red Cell Distribution Width 13.1 11.0-15.5 % Platelet Count 258 130-400 K/uL Mean Platelet Volume 10.6 H 7.5-10.5 fL Immature Granulocyte % (Auto) 0.5 0-1 % Neutrophils (%) (Auto) 46.9 40.0-77.0 % Lymphocytes (%) (Auto) 38.5 21.0-51.0 % Monocytes (%) (Auto) 10.8 3.0-13.0 % Eosinophils (%) (Auto) 2.6 0.0-8.0 % Basophils (%) (Auto) 0.7 0.0-5.0 % Neutrophils # (Auto) 2.6 1.8-7.7 K/uL Lymphocytes # (Auto) 2.1 1.0-4.8 K/uL Monocytes # (Auto) 0.6 0.1-1.0 K/uL Eosinophils # (Auto) 0.14 0.00-0.70 K/uL Basophils # (Auto) 0.04 0.00-0.20 K/uL Absolute Immature Granulocyte (auto 0.03 0-1 K/uL Nucleated Red Blood Cells 0.0 0.0-0.19 % Sodium Level 142 136-145 mmol/L Potassium Level 4.0 3.5-5.1 mmol/L Chloride Level 108 101-111 mmol/L Carbon Dioxide Level 30 21-32 mmol/L Blood Urea Nitrogen 27 H 7-18 mg/dL Creatinine 1.3 0.5-1.3 mg/dL Glomerular Filtration Rate Calc 64 >90 mL/min Random Glucose 63 L 70-105 mg/dL Total Calcium 8.7 8.5-10.1 mg/dL Total Bilirubin 0.5 # 0.2-1.0 mg/dL Aspartate Amino Transf (AST/SGOT) 26 10-37 U/L Alanine Aminotransferase (ALT/SGPT) 27 12-78 U/L Alkaline Phosphatase 84 50-136 U/L Total Protein 7.1 6.0-8.3 g/dL Albumin 2.4 L 3.5-5.0 g/dL Prothrombin Time 12.0 H 9.6-11.6 SEC Prothromb Time International Ratio 1.15 0.85-1.15 Magnesium Level 2.20 1.80-2.40 mg/dL DIAGNOSTICS / RADIOLOGY: [ ] Wound care assessment: Nonhealing wound on the right posterior leg. Diabetic foot ulcer affecting the right foot. PROBLEM LIST : Medical Problems: (1) Chest pain with moderate risk for cardiac etiology ICD Codes: R07.9 - Chest pain, unspecified (2) Dehydration ICD Codes: E86.0 - Dehydration (3) Demand ischemia ICD Codes: I24.89 - Other forms of acute ischemic heart disease (4) Elevated troponin ICD Codes: R79.89 - Other specified abnormal findings of blood chemistry (5) NSTEMI (non-ST elevated myocardial infarction) ICD Codes: I21.4 - Non-ST elevation (NSTEMI) myocardial infarction (6) Sepsis ICD Codes: A41.9 - Sepsis, unspecified organism (7) SIRS (systemic inflammatory response syndrome) ICD Codes: R65.10 - Systemic inflammatory response syndrome (SIRS) of non- infectious origin without acute organ dysfunction PLAN: Nonweightbearing on the right foot. Comorbidities per primary team. Wound care cleaning the ulcer with Vashe daily apply Medihoney secure with dry dressing. Consulting distiller Dr. Godfrey for managing of the diabetic ulcer. Further management per hospital course. Thank you for the consultation allowing me to participate in the care of your patient. SAKINA BUTCHER MD Jul 11, 2024 08:45
--- NOTE | 2024-07-11 09:00 | NUR ---
NOTIFY PHYSICAL THERAPY DEPARTMENT OF NON WEIGHT BEARING STATUS TO RIGHT FOOT. EDUCATED PATIENT ON THE IMPORTANCE OF FOLLOWING PHYSICIAN ORDERS OF PHYSICAL RESTRICTIONS TO ENSURE HEALING OF WOUND AND NO FALLS. PATIENT VERBALIZED UNDERSTANDING.
--- NOTE | 2024-07-11 11:30 | NUR ---
BLOOD GLUCOSE 98. NO INSULIN COVERAGE NEEDED AT THIS TIME.
--- NOTE | 2024-07-11 12:34 | PN ---
INFECTIOUS DISEASE PROGRESS NOTE Date of Service: Jul 11, 2024 SUBJECTIVE: This is a 72-year-old male patient who was seen and examined at bedside in room 430. Patient is awake, alert and oriented x 3. Patient is status post status post peripheral angiogram with successful intervention of the right SFA stenosis on 07/07/2024. Patient is afebrile, temperature is 98.2. Patient with polymicrobial infection to the right foot stump. Will continue on Tygacil and zosyn. Patient will need six weeks of IV antibiotics and Case management working on placement. We will continue to follow patient's care. PHYSICAL EXAM EYES: Anicteric. Pupils equal and reactive. HENT: No oral thrush seen, moist Oral mucosa. NECK: Supple, no JVD or thyromegaly. LUNGS: Good air entry. No rales, no rhonchi. CARDIOVASCULAR: S1, S2 regular. No murmur heard. ABDOMEN: Soft, non tender, bowel sounds present, no organomegaly. CENTRAL NERVOUS SYSTEM: Awake, alert, oriented x 3. SKIN: No rashes, no swelling. LYMPHATICS: No peripheral lymphadenopathy. MUSCULOSKELETAL: No joint swelling, erythema or tenderness. 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 Ulcer involving the posterior aspect of the right lower leg. Ulcer involving the right stump. BACK: No deformity, no pressure ulcer. GENITOURINARY: No dysuria or hematuria. Vital Sign (Last 12 Hours) 07/11/24 07/11/24 03:42 07:52 Temp 99.0 98.2 Pulse 68 59 Resp 16 18 B/P (MAP) 112/62 139/72 Pulse Ox 99 98 O2 Delivery Room Air Room Air Intake & Output (last 24hrs) 07/10/24 07/10/24 07/11/24 15:00 23:00 07:00 Intake Total 1250 ml 150.0 ml Output Total 400 ml Balance 1250 ml -250.0 ml LABS: Laboratory: Test 07/11/24 12:22 07/11/24 03:01 07/10/24 16:30 07/10/24 05:04 Range/Units Whole Blood Glucose 98 70-110 MG/DL White Blood Count 5.5 4.8-10.8 K/uL Red Blood Count 3.42 L 4.50-6.20 MIL/uL Hemoglobin 10.5 L 14.0-18.0 g/dL Hematocrit 31.4 L 42-54 % Mean Corpuscular Volume 91.8 79-99 fL Mean Corpuscular Hemoglobin 30.7 27.0-33.0 pg Mean Corpuscular Hemoglobin Concent 33.4 32.0-36.0 g/dL Red Cell Distribution Width 13.1 11.0-15.5 % Platelet Count 258 130-400 K/uL Mean Platelet Volume 10.6 H 7.5-10.5 fL Immature Granulocyte % (Auto) 0.5 0-1 % Neutrophils (%) (Auto) 46.9 40.0-77.0 % Lymphocytes (%) (Auto) 38.5 21.0-51.0 % Monocytes (%) (Auto) 10.8 3.0-13.0 % Eosinophils (%) (Auto) 2.6 0.0-8.0 % Basophils (%) (Auto) 0.7 0.0-5.0 % Neutrophils # (Auto) 2.6 1.8-7.7 K/uL Lymphocytes # (Auto) 2.1 1.0-4.8 K/uL Monocytes # (Auto) 0.6 0.1-1.0 K/uL Eosinophils # (Auto) 0.14 0.00-0.70 K/uL Basophils # (Auto) 0.04 0.00-0.20 K/uL Absolute Immature Granulocyte (auto 0.03 0-1 K/uL Nucleated Red Blood Cells 0.0 0.0-0.19 % Sodium Level 142 136-145 mmol/L Potassium Level 4.0 3.5-5.1 mmol/L Chloride Level 108 101-111 mmol/L Carbon Dioxide Level 30 21-32 mmol/L Blood Urea Nitrogen 27 H 7-18 mg/dL Creatinine 1.3 0.5-1.3 mg/dL Glomerular Filtration Rate Calc 64 >90 mL/min Random Glucose 63 L 70-105 mg/dL Total Calcium 8.7 8.5-10.1 mg/dL Total Bilirubin 0.5 # 0.2-1.0 mg/dL Aspartate Amino Transf (AST/SGOT) 26 10-37 U/L Alanine Aminotransferase (ALT/SGPT) 27 12-78 U/L Alkaline Phosphatase 84 50-136 U/L Total Protein 7.1 6.0-8.3 g/dL Albumin 2.4 L 3.5-5.0 g/dL Prothrombin Time 12.0 H 9.6-11.6 SEC Prothromb Time International Ratio 1.15 0.85-1.15 Magnesium Level 2.20 1.80-2.40 mg/dL ASSESSMENT: Right foot stump ulcer with polymicrobial infection, Acinetobacter baumannii, Klebsiella oxytoca, Morganella morganii and Staphylococcus aureus. Right lower extremity cellulitis. Peripheral artery disease, status post abdominal aortogram with pelvic runoff with successful intervention of the right SFA stenosis on 07/07/2024. Possible angina pectoris. Elevated troponin. Diabetes mellitus. Obesity. PLAN: Continue Tygacil IV. Continue Zosyn IV. Continue GI prophylaxis. Continue antiplatelets. Continue wound care. Continue pain management. Continue thiamine. Continue monitoring glucose levels. Patient will need 6 weeks of IV antibiotics. Pending placement. This case was reviewed and discussed with my supervising physician and the above assessment and plan was formulated and agreed upon. ATTESTATION BY PHYSICIAN I have seen and examined the patient. I reviewed the documentation, medical decision making, and treatment plan as noted by the mid-level provider above. I agree with the findings and plan of care. MÓNICA MOSQUEDA MD, [facility] Jul 11, 2024 12:34
--- NOTE | 2024-07-11 12:58 | NUR ---
DC PLAN CHECKED STILL PENDING PT NOTE FOR [facility]OH REFERRAL CM WILL CONT TO F/U. Addendum: 07/11/24 at 1306 by CONCHA LEMA RN CM Amended: Links added.
--- NOTE | 2024-07-11 16:30 | NUR ---
BLOOD GLUCOSE 108. NO INSULIN COVERAGE NEEDED AT THIS TIME.
--- NOTE | 2024-07-11 16:51 | PN ---
[facility] PROGRESS NOTE Date of Service: Jul 11, 2024 Time of Service: 16:51 SUBJECTIVE: Mr. Patrick is a 59-year-old male that was seen and examined today on 07/03/2024. Patient is a good historian of personal health Patient states that he came to the emergency department with a chief complaint of chest pain. Onset was 07/02/2024 at 4:30 p.m.. Location is to left lower chest along the midclavicular line. Duration is on and off. Character is described as pressure. Symptoms are aggravated with, " walking around the bar. "Patient states he was at a local bar consuming alcohol prior to coming to the emergency department. There was no alleviating factors. Patient reports associated right foot pain. Today in the emergency department WBCs 12.2, left shift neutrophils 82.2%, glucose 184 mg/dL, high sensitivity troponin 183, BNP 249, urinalysis is unremarkable, urine toxicology is unremarkable, alcohol level is 25. Emergency room physician recommended that patient be admitted with a diagnosis of chest pain. Additionally patient presented with a heart rate of 112, combined with patient's WBCs of 12.2 and identified suspected source of infection being right lower extremity wounds patient met clinical sepsis criteria. 07/03/2024 The patient was examined at bedside. The patient states resolution of his chest pain completely. There is wound in his right lower extremity. His temperature is fluctuating and has slight fever. The patient appears very weak fatigued and tired. He was on prolonged courses of antibiotics for a longer duration. He is in mild distress due to pain from his foot. Coordinating care with the Wound portrait consultant cardiology team and Infectious Disease team. He was recently hospitalized for prolonged period for his right lower extremity wound infection. Discuss the goal of care with the patient. Evaluating and ruling out all causes of his chest pain. 07/04/2024 10AM Patient is seen and examined at the bedside. He denies chest pain, fever, chills. He complains of right foot pain. Blood culture results are negative. He is on heparin drip in view of NSTEMI. Chest x-ray and CT PE resulted in no acute findings. Urinalysis positive for leukocyte esterase. Troponin trended up from 800-1243. Right wound aspirate gram stain resulted in gram negative rods and Gram-positive cocci in clusters Staph aureus. 07/05/24: Patient seen and examined in the morning denies any new complaints. Denies chest pain denies shortness of breath denies fever or chills. MRI shows no osteomyelitis only cellulitis changes. Blood culture is growing Gram-positive meghna in one of the bottle final sensitivity and identification is still pending. Cardiology has already seen the patient and recommended conservative management with heparin drip for48 hours aspirin Plavix and high- intensity statin. Heparin drip will be stopped today July 06, 2024 the patient was examined at bedside, he had a history of ischemic cardiomyopathy, peripheral artery disease, chronic right foot infection with previous osteomyelitis, recent bacteremia. He is currently admitted for management of myositis and cellulitis of the right foot, peripheral artery disease and evaluation of elevated troponin. The patient remains hemodynamically stable, denies new complaints and verbalizes understanding of t he treatment plan. No overnight events or complaints. No new chest pain, dyspnea, dizziness or palpitations. Heparin will be held in the a.m. aerobic active Bactrim baumannii culture positive. And blood cultures Gram- positive rods detected in 1-2 bottles pending speciation and sensitivities. And aerobic culture for Klebsiella oxytoca, Morganella morganii, staph aureus is positive. 07/07/24 patient was evaluated in the room this morning, he is very somnolent, he is on CIWA protocol taking Librium. He is in and out of consciousness. Apparently patient drinks four beers daily. Patient is scheduled for angio today with Dr. Muhammad 07/08/24 The patient underwent an abdominal angiogram with pelvic runoff followed by right lower extremity digital subtraction angiogram with drug coated balloon percutaneous transluminal angioplasty of the distal right superficial femoral a rtery. The intervention was successful significantly improving the 50% distal right SFA stenosis, which was reduced to 0% residual stenosis. The patient remains mildly drowsy but conversant, with no new complaints and no overnight events. Reports mild discomfort at the catheterization site and bilateral lower extremity discomfort. He understands the treatment plan and is awaiting transfer to a long term facility for IV antibiotic therapy for 6 weeks As per Infectious Disease suggestion. July 09, 2024 patient was examined at bedside today. No overnight events reported. The patient remains clinically stable and awaiting transfer to [facility] for long-term IV antibiotic therapy. The patient prefers to be transferred to a [facility] long term facility. 07/10/24 patient was examined at bedside today. No overnight events reported. The patient remains clinically stable and awaiting transfer to [facility] for long-term IV antibiotic therapy. The patient prefers to be transferred to a [facility] nursing facility 07/11/24 patient was seen and examined. No overnight events noted. His right foot wound is getting better. Seen at with Dr. Villasenor who was providing wound care REVIEW OF SYSTEMS CONSTITUTIONAL: Denies fevers, chills, or night sweats. No unintentional weight loss reported. NEUROLOGICAL: Denies headache, amaurosis fugax, motor weakness, sensory deficit, vertigo/spinning sensation, gait abnormalities, or tremors. ENT: No hearing loss, otalgia, otorrhea, rhinitis, rhinorrhea, hoarseness, or sore throat. CARDIOVASCULAR: Denies any exertional angina, dyspnea on exertion, orthopnea, paroxysmal nocturnal dyspnea, palpitations, life-threatening arrhythmias, claudication. PULMONARY: Denies any shortness of breath, cough, phlegm/sputum, hemoptysis, pleuritic chest pain. SLEEP: Denies morning headaches, daytime somnolence or napping. Denies difficulty falling asleep, staying asleep, waking from sleep. Denies knowledge of snoring. GASTROINTESTINAL: Denies any type of dysphagia to either liquids or solids. Denies nausea, vomiting, pyrosis, early satiety, abdominal pain, diarrhea, constipation, or changes in stool consistency or caliber. Denies coffee-ground emesis, hematemesis, hematochezia, or melanotic stools. GENITOURINARY: Denies frequency, urgency, nocturia, hematuria or incontinence (Storage/Irritative symptoms.) Low urinary stream, straining to void, urinary intermittency or hesitancy, splitting of the voiding stream, terminal dribbling. ENDOCRINOLOGIC: Denies polyuria, polydipsia, polyphagia or heat/cold intolerances. HEMATOLOGIC: Denies thrombophilia/previous clots, or coagulopathy/bleeding disorders. ONCOLOGIC: Denies personal history of malignancy. DERMATOLOGIC: Denies rashes or pruritus. PSYCHIATRIC: Denies any suicidal or homicidal ideation. Denies hallucinations. PHYSICAL EXAM GENERAL APPEARANCE: The patient is awake, alert, and oriented, in no acute cardiopulmonary distress. NEUROLOGICAL: Cranial nerves II-XII grossly intact. Motor is 5/5 in bilateral upper and lower extremities proximal to distal. No sensory deficits. HEENT: Face is symmetric. Pupils are equal and reactive. Extraocular movements are intact. NECK: Supple. No JVD. No thyromegaly. No submental, submandibular, pre- /postauricular, occipital or supraclavicular lymphadenopathy. CHEST: Normal chest expansion. No Telemetry. LUNGS: Absence of any rales, rhonchi or any wheezing. CARDIOVASCULAR: Regular. S1 and S2 normal. No appreciable rubs, murmurs or gallops. ABDOMEN: Soft, nontender, and nondistended. There is no rebound, voluntary guarding, or rigidity. : Deferred. No Abrams. EXTREMITIES: Right foot with amputation dressing is clean and intact. SKIN: No skin breakdown. Vital Signs (last 8hr) Date Time Temp Pulse Resp B/P (MAP) Pulse Ox O2 Delivery O2 Flow Rate FiO2 07/11/24 16:45 97.5 71 16 125/72 98 Room Air 07/11/24 12:31 98.1 56 17 136/71 99 Room Air LABS: Laboratory: Test 07/11/24 16:01 07/11/24 03:01 07/10/24 16:30 07/10/24 05:04 Range/Units Whole Blood Glucose 108 70-110 MG/DL White Blood Count 5.5 4.8-10.8 K/uL Red Blood Count 3.42 L 4.50-6.20 MIL/uL Hemoglobin 10.5 L 14.0-18.0 g/dL Hematocrit 31.4 L 42-54 % Mean Corpuscular Volume 91.8 79-99 fL Mean Corpuscular Hemoglobin 30.7 27.0-33.0 pg Mean Corpuscular Hemoglobin Concent 33.4 32.0-36.0 g/dL Red Cell Distribution Width 13.1 11.0-15.5 % Platelet Count 258 130-400 K/uL Mean Platelet Volume 10.6 H 7.5-10.5 fL Immature Granulocyte % (Auto) 0.5 0-1 % Neutrophils (%) (Auto) 46.9 40.0-77.0 % Lymphocytes (%) (Auto) 38.5 21.0-51.0 % Monocytes (%) (Auto) 10.8 3.0-13.0 % Eosinophils (%) (Auto) 2.6 0.0-8.0 % Basophils (%) (Auto) 0.7 0.0-5.0 % Neutrophils # (Auto) 2.6 1.8-7.7 K/uL Lymphocytes # (Auto) 2.1 1.0-4.8 K/uL Monocytes # (Auto) 0.6 0.1-1.0 K/uL Eosinophils # (Auto) 0.14 0.00-0.70 K/uL Basophils # (Auto) 0.04 0.00-0.20 K/uL Absolute Immature Granulocyte (auto 0.03 0-1 K/uL Nucleated Red Blood Cells 0.0 0.0-0.19 % Sodium Level 142 136-145 mmol/L Potassium Level 4.0 3.5-5.1 mmol/L Chloride Level 108 101-111 mmol/L Carbon Dioxide Level 30 21-32 mmol/L Blood Urea Nitrogen 27 H 7-18 mg/dL Creatinine 1.3 0.5-1.3 mg/dL Glomerular Filtration Rate Calc 64 >90 mL/min Random Glucose 63 L 70-105 mg/dL Total Calcium 8.7 8.5-10.1 mg/dL Total Bilirubin 0.5 # 0.2-1.0 mg/dL Aspartate Amino Transf (AST/SGOT) 26 10-37 U/L Alanine Aminotransferase (ALT/SGPT) 27 12-78 U/L Alkaline Phosphatase 84 50-136 U/L Total Protein 7.1 6.0-8.3 g/dL Albumin 2.4 L 3.5-5.0 g/dL Prothrombin Time 12.0 H 9.6-11.6 SEC Prothromb Time International Ratio 1.15 0.85-1.15 Magnesium Level 2.20 1.80-2.40 mg/dL Current Medications Medications (Trade) Dose Ordered Sig/Jl Route PRN Reason Start Time Stop Time Status Last Admin Dose Admin Acetaminophen (TYLenol 325MG TAB) 650 mg Q6H PRN PO TEMPERATURE GREATER THAN 101.5 07/03/24 03:00 08/02/24 02:59 Aspirin (Aspirin 81mg Ec Tab) 81 mg DAILY PO 07/04/24 09:00 08/03/24 08:59 07/11/24 10:23 81 MG Atorvastatin Calcium (LIPItor 40MG) 40 mg HS PO 07/03/24 21:00 07/05/24 15:02 DC 07/04/24 20:22 40 MG Atorvastatin Calcium (LIPItor 40MG) 80 mg HS PO 07/05/24 21:00 08/04/24 20:59 07/10/24 20:58 80 MG Chlordiazepoxide HCl (LIBrium 25 MG CAP) 25 mg Q8H PO 07/03/24 03:00 07/10/24 02:59 DC 07/09/24 18:11 25 MG Clopidogrel Bisulfate (plaVIX 75MG) 75 mg DAILY PO 07/04/24 09:00 08/03/24 08:59 07/11/24 10:23 75 MG Clopidogrel Bisulfate (plaVIX 75MG) 75 mg DAILY PO 07/10/24 09:00 07/09/24 22:47 DC Famotidine (Pepcid 20mg Tab) 20 mg DAILY PO 07/03/24 09:00 08/02/24 08:59 07/11/24 10:23 20 MG Heparin Sodium (Porcine) (HEParin 5,000 UNIT VIAL) *calculation based on ACTUAL B... AD PRN IV HEPARIN PROTOCOL 07/03/24 04:00 07/03/24 03:51 DC 07/03/24 03:41 6,000 UNIT Heparin Sodium/ Dextrose 250 ml @ 0 mls/hr Q6H IV 07/03/24 04:00 07/07/24 15:46 DC 07/06/24 21:28 10.34 MLS/HR Hydralazine HCl (APRESOLine 20MG INJ) 10 mg Q6H PRN IV For:SBP above 160;DBP above 90 07/03/24 03:00 08/02/24 02:59 Insulin Glargine (LANtus 100 UNITS/ML 10 ML VIAL) 15 units BID SQ 07/03/24 21:00 08/02/24 20:59 07/10/24 20:59 15 UNITS Leptospermum Honey (Medihoney) 1 APPL DAILY TP 07/03/24 14:00 08/02/24 13:59 07/11/24 10:34 1 APPL Lorazepam (AtiVAN) 1 mg Q4H PRN IVP ALCOHOL WITHDRAWAL PROTOCOL 07/03/24 03:00 07/10/24 02:59 DC Magnesium Sulfate 50 ml @ 0 mls/hr PROTOCOL PRN IV Electrolyte abnormality 07/03/24 12:00 08/02/24 11:59 07/08/24 11:06 25 MLS/HR Metoprolol Tartrate (loprESSOR) 25 mg BID PO 07/03/24 21:00 08/02/24 20:59 07/11/24 10:23 25 MG Miscellaneous Medication (Insulin Degludec (Tresiba Flextouch U-100)) 15 units ACBKFST SQ 07/04/24 07:30 07/03/24 14:11 DC Miscellaneous Medication ([Tramadol ] ) 50 mg BID PRN PO P610 07/03/24 14:00 07/03/24 14:09 DC Morphine Sulfate (morPHINE 2MG SYG) 2 mg Q4H PRN IVP SEVERE PAIN (7-10) 07/03/24 03:30 07/08/24 06:29 DC Nitroglycerin (Nitroglycerin 1gm Oint) 0.5 inch Q8H TD 07/03/24 03:00 08/02/24 02:59 07/11/24 10:24 0.5 INCH Ondansetron HCl (zoFRAN 4MG INJ) 4 mg Q6H PRN IV NAUSEA/VOMITING 07/03/24 03:00 08/02/24 02:59 Pharmacy Profile Note (Pharmacy Communication) 1 each ONCE MISC 07/07/24 13:00 07/07/24 12:55 DC Pharmacy Profile Note (Pharmacy Communication) 1 each PROTOCOL PRN MISC ETOH Withdrawal Score changes 07/03/24 03:00 07/10/24 02:59 DC Piperacillin Sod/ Tazobactam Sod (Zosyn 3.375gm+NS 50ml) 3.375 gm Q8H IV 07/03/24 01:30 07/03/24 03:03 DC 07/03/24 01:37 3.375 GM Piperacillin Sod/ Tazobactam Sod (Zosyn 3.375gm+NS 50ml) 3.375 gm Q8H IVPB 07/03/24 09:30 07/13/24 09:29 07/11/24 10:23 3.375 GM Potassium Chloride 100 ml @ 50 mls/hr AD PRN IV POTASSIUM PROTOCOL 07/03/24 12:00 08/02/24 11:59 Potassium Chloride 100 ml @ 100 mls/hr AD PRN IV POTASSIUM PROTOCOL 07/04/24 13:00 07/04/24 12:43 DC Potassium Chloride (K-Dur/Klor-Con 20meq) 20 meq AD PRN PO POTASSIUM PROTOCOL 07/04/24 13:00 08/03/24 12:59 07/05/24 17:10 20 MEQ Potassium Chloride (KCl 10% Elixir 20meq/15ml) 20 meq AD PRN PO POTASSIUM PROTOCOL 07/04/24 13:00 08/03/24 12:59 07/07/24 15:38 20 MEQ Pregabalin ([id number]) 75 mg BID PO 07/03/24 21:00 08/02/24 20:59 07/11/24 10:23 75 MG Rivaroxaban (Xarelto) 2.5 mg BID PO 07/10/24 09:00 08/10/24 12:00 07/11/24 10:23 2.5 MG Sodium Chloride 1,000 ml @ 150 mls/hr Q6H40M IV 07/07/24 14:00 07/07/24 17:59 DC 07/07/24 15:15 150 MLS/HR Sodium Chloride (NS 50ml) 50 ml AD IV 07/03/24 03:00 07/03/24 11:34 DC Thiamine HCl (Vitamin B-1) 100 mg DAILY PO 07/05/24 09:00 08/04/24 08:59 07/11/24 10:23 100 MG Tigecycline 50 mg/ Sodium Chloride 100 ml @ 100 mls/hr Q12H IV 07/08/24 01:00 07/15/24 00:59 07/11/24 13:07 100 MLS/HR Vancomycin HCl (Vancomycin 1.25 Gm/250 ml Bag) 1.25 gm ONCE IV 07/03/24 11:30 07/03/24 11:33 DC DIAGNOSTICS / RADIOLOGY: [ ] ASSESSMENT: ASSESSMENT: Chest pain, POA Non-STEMI, currently on heparin drip, POA Elevated cardiac enzymes, POA Right inefcted foot wound, POA Cellulitis of right lower extremity. POA. anemia / POA Sepsis, POA Alcohol dependence, POA Leukocytosis, POA Uncontrolled Diabetes mellitius type2, POA Hypertension Hyperlipidemia Type 2 diabetes mellitus Right internal carotid artery stenosis History of CVA in April 2022 Grade 1 diastolic heart failure by 2D echo on 05/26/2023 with EF 40-45% Peripheral artery disease right lower extremity by ultrasound on 04/14/2024]] Myositis /right foot POA PLAN: Peripheral artery disease / post peripheral angiogram and STANDARDS ENGINEER: STANDARDS ENGINEER with DC be of distal right SFA. monitor urine output and renal function. Optimize hydration status prior to annual monitor for postprocedural complication. Myocardial infraction continue aspirin continue clopidogrel 75 mg continue atorvastatin continue metoprolol start Xarelto 2.5 mg b.i.d. Right foot wound, right ankle wound: Wound gram stain revealed Gram-negative rods and Gram-positive cocci in clusters, staph aureus monitor for signs of worsening infection. Repeat WBC count and inflammatory markers in the am Follow up on wound culture results Wound Care Service recommended Medihoney dressings. Continue Zosyn IV And tigecycline 50 mg q.12h per ID recommendations. Sepsis, leukocytosis: Fluid resuscitation with lactated Ringer's 30 mL/kg. Continue antibiotic therapy with Zosyn and tigecycline, Reviewed patient's lactic acid, unremarkable. continue blood cultures to assess clearance. ID team following for targeted therapy. Avoid invasive cardiac workup elevated troponins likely secondary to sepsis or demand ischemia. Urinary tract infection, POA Reviewed patient's urinalysis which is mildly suggestive of UTI very few white blood cell count this could be a contaminated sample although squamous epithelial cells are rare. Differential diagnosis of UTI we will be covered by aforementioned antimicrobial therapy, Zosyn. Follow up on urine culture results repeat CBC tomorrow consider iron supplementation if anemia persists discontinue heparin in the a.m. tomorrow. Monitor APTT in the morning. Consider resuming DVT prophylaxis postprocedure if indicated. Continue aspirin 81 mg daily, atorvastatin 80 mg daily, clopidogrel 75 mg daily and metoprolol tartrate 25 mg b.i.d.. Alcohol dependence: Counseled patient on alcohol cessation. Librium 25 mg by mouth every 8 hours, we will monitor titrate As needed Ativan for alcohol withdrawal 1 mg every 4 hours Use CIWA-AR assessment tool Document EtOH withdrawal score Assess the need for seizure and aspiration precautions We will order thiamine preparation for the patient Diabetes mellitus type 2: Check hemoglobin A1c in a.m. Glucometer checks a.c. and HS 1800 ADA diet Humulin R sliding scale Hypertension, hyperlipidemia, right internal carotid artery stenosis, grade 1 diastolic heart failure Intake and output every shift. Daily weights Hydralazine 10 mg IV every 4 hours for systolic blood pressure greater than 160 mmHg, aspirin 81 mg daily, clopidogrel 75 mg daily, atorvastatin 80 mg HS. GI prophylaxis, famotidine DVT prophylaxis, patient will be on heparin drip as mentioned above, as per Cardiology recommendation Discharge planning and transfer plan patient is medically stable for transfer to [facility] for IV antibiotic therapy for 6 weeks per ID recommendation AWAITING FINAL CONFIRMATION OF SNF ACCEPTANCE. MAHIN BROCK MD Jul 11, 2024 16:51
--- NOTE | 2024-07-11 21:03 | PN ---
SUBJECTIVE: The patient is a very pleasant 59-year-old diabetic, Latin-[place] male who is followed up for a diabetic ulcer to the plantar aspect of his right heel and a diabetic ulcer to the posterior aspect of his right ankle. The patient is currently status post revascularization procedure of his right lower extremity by Dr. Muhammad, had successful intervention of the superficial femoral artery, has runoff to the right foot via the posterior tibial artery, found to have occlusion of the anterior tibial artery and the peroneal artery on that right side. The patient is being evaluated for transfer to the [facility]. The patient is currently afebrile at 98.2, pulse 59, blood pressure 139/72, respirations 18. The patient has a white count of 5.5, H and H 10.5 and 31.4, platelets 258. BUN and creatinine 27 and 1.3, glucose 108, albumin 2.4. The patient had an MRI of the right foot, negative for osteomyelitis. The patient is currently receiving the IV Zosyn per his cultures and sensitivities that have grown back Klebsiella oxytoca, morganella morganii, and Staph aureus and Acinetobacter baumannii haemolyticus. The patient has a past medical history that is significant for cellulitis right foot, necrotizing fasciitis infection right foot, osteomyelitis right foot, status post Chopart level of amputation right foot, hypertension, hyperlipidemia, type 2 diabetes, right internal carotid artery stenosis, history of CVA 04/2022, grade 1 diastolic dysfunction, peripheral vascular disease, status post revascularization procedure. SOCIAL HISTORY: The patient drinks 12 beers daily. REVIEW OF SYSTEMS: CONSTITUTIONAL: No chills, no fevers, no night sweats, no nausea, vomiting, no diarrhea. HEENT: No problems with his eyes, ears, nose, or throat. CARDIOVASCULAR: Status post revascularization procedure on right lower extremity performed by the Cardiology Service. GENITOURINARY: No dysuria. BUN 27, creatinine 1.3. PSYCHIATRIC: Denied any depression. MUSCULOSKELETAL: He has a partial great toe amputation on the left. He has a Chopart's level of amputation on the right. INTEGUMENT: He has an ulcer to the tip of the left second toe, 6 x 1 mm. He has an ulcer to the plantar heel on the right that is 12 x 12 x 1 mm and ulcer to the posterior aspect of the right ankle 8 x 2.5 cm, 1 mm in depth. OBJECTIVE: His examination today shows he has a well-healed Chopart's amputation on the right, well-healed partial first toe amputation on the left. He has an ulcer to the tip of the left second toe, 6 x 5 x 1 mm. He has an ulcer to the left heel 12 x 12 x 1 mm. He has an ulcer to posterior ankle on the right 8 x 2.5 cm x 1 mm, clean and granular. ASSESSMENT: Diabetes, peripheral vascular disease, status post revascularization procedure, clean granular wound to the left second toe, right heel and right posterior ankle no clinical signs of infection. The patient is being evaluated for transfer to the [facility]. PLAN: Medihoney dressings daily, offloading measures. Follow up with Dr. Godfrey, his water treatment operator, as an outpatient. Continue with antibiotic therapy. TID: [id number] RECEIPT: [id number]
--- NOTE | 2024-07-11 21:30 | NUR ---
TRANSFER TRANSFERRED PATIENT TO ROOM 431, ACCESS REGISTRAR ELIZA CODY RN AWARE OF TRANSFER
[2024-07-12 03:21] VITALS: BP 112/72; PULSE 96; RESP 19; TEMP 97.5
[2024-07-12 07:30] VITALS: BP 103/61; PULSE 75; RESP 20; TEMP 97.6
[2024-07-12 11:05] VITALS: BP 135/85; PULSE 70; RESP 20; TEMP 98.3
--- NOTE | 2024-07-12 11:21 | HMCIMG ---
RIGHT ANKLE RADIOGRAPHS - 2 VIEWS INDICATION: Osteomyelitis evaluation COMPARISON: None FINDINGS: AP, lateral views. No acute fracture or subluxation identified. Right foot amputation changes bearing the hindfoot. No evidence for periosteal reaction, cortical erosive changes, or any abnormal subperiosteal bone resorption. The talar dome is intact. Ankle mortise and tibial plafond are well maintained. Extensive arterial wall calcific plaque. No significant joint effusion is present. Subcentimeter plantar calcaneal spur. IMPRESSION: No evidence for osteomyelitis..
[2024-07-12] MEDS: acetaMINOPHEN 325 MG TAB PO PRN (14:20)
[2024-07-12 15:05] VITALS: BP 124/58; PULSE 61; RESP 20; TEMP 98.2
[2024-07-12 15:20] VITALS: TEMP 98.2
[2024-07-12] MEDS: DEXTROSE 50%-WATER 50 ML DISP.SYRIN IV ONE (15:54)
--- NOTE | 2024-07-12 16:07 | PN ---
[facility] PROGRESS NOTE Date of Service: Jul 12, 2024 Time of Service: 16:06 SUBJECTIVE: Mr. Patrick is a 59-year-old male that was seen and examined today on 07/03/2024. Patient is a good historian of personal health Patient states that he came to the emergency department with a chief complaint of chest pain. Onset was 07/02/2024 at 4:30 p.m.. Location is to left lower chest along the midclavicular line. Duration is on and off. Character is described as pressure. Symptoms are aggravated with, " walking around the bar. "Patient states he was at a local bar consuming alcohol prior to coming to the emergency department. There was no alleviating factors. Patient reports associated right foot pain. Today in the emergency department WBCs 12.2, left shift neutrophils 82.2%, glucose 184 mg/dL, high sensitivity troponin 183, BNP 249, urinalysis is unremarkable, urine toxicology is unremarkable, alcohol level is 25. Emergency room physician recommended that patient be admitted with a diagnosis of chest pain. Additionally patient presented with a heart rate of 112, combined with patient's WBCs of 12.2 and identified suspected source of infection being right lower extremity wounds patient met clinical sepsis criteria. 07/03/2024 The patient was examined at bedside. The patient states resolution of his chest pain completely. There is wound in his right lower extremity. His temperature is fluctuating and has slight fever. The patient appears very weak fatigued and tired. He was on prolonged courses of antibiotics for a longer duration. He is in mild distress due to pain from his foot. Coordinating care with the Wound client experience consultant cardiology team and Infectious Disease team. He was recently hospitalized for prolonged period for his right lower extremity wound infection. Discuss the goal of care with the patient. Evaluating and ruling out all causes of his chest pain. 07/04/2024 10AM Patient is seen and examined at the bedside. He denies chest pain, fever, chills. He complains of right foot pain. Blood culture results are negative. He is on heparin drip in view of NSTEMI. Chest x-ray and CT PE resulted in no acute findings. Urinalysis positive for leukocyte esterase. Troponin trended up from 800-1243. Right wound aspirate gram stain resulted in gram negative rods and Gram-positive cocci in clusters Staph aureus. 07/05/24: Patient seen and examined in the morning denies any new complaints. Denies chest pain denies shortness of breath denies fever or chills. MRI shows no osteomyelitis only cellulitis changes. Blood culture is growing Gram-positive meghna in one of the bottle final sensitivity and identification is still pending. Cardiology has already seen the patient and recommended conservative management with heparin drip for48 hours aspirin Plavix and high- intensity statin. Heparin drip will be stopped today July 06, 2024 the patient was examined at bedside, he had a history of ischemic cardiomyopathy, peripheral artery disease, chronic right foot infection with previous osteomyelitis, recent bacteremia. He is currently admitted for management of myositis and cellulitis of the right foot, peripheral artery disease and evaluation of elevated troponin. The patient remains hemodynamically stable, denies new complaints and verbalizes understanding of t he treatment plan. No overnight events or complaints. No new chest pain, dyspnea, dizziness or palpitations. Heparin will be held in the a.m. aerobic active Bactrim baumannii culture positive. And blood cultures Gram- positive rods detected in 1-2 bottles pending speciation and sensitivities. And aerobic culture for Klebsiella oxytoca, Morganella morganii, staph aureus is positive. 07/07/24 patient was evaluated in the room this morning, he is very somnolent, he is on CIWA protocol taking Librium. He is in and out of consciousness. Apparently patient drinks four beers daily. Patient is scheduled for angio today with Dr. Muhammad 07/08/24 The patient underwent an abdominal angiogram with pelvic runoff followed by right lower extremity digital subtraction angiogram with drug coated balloon percutaneous transluminal angioplasty of the distal right superficial femoral a rtery. The intervention was successful significantly improving the 50% distal right SFA stenosis, which was reduced to 0% residual stenosis. The patient remains mildly drowsy but conversant, with no new complaints and no overnight events. Reports mild discomfort at the catheterization site and bilateral lower extremity discomfort. He understands the treatment plan and is awaiting transfer to a longterm facility for IV antibiotic therapy for 6 weeks As per Infectious Disease suggestion. July 09, 2024 patient was examined at bedside today. No overnight events reported. The patient remains clinically stable and awaiting transfer to [facility] for long-term IV antibiotic therapy. The patient prefers to be transferred to a [place] longterm facility. 07/10/24 patient was examined at bedside today. No overnight events reported. The patient remains clinically stable and awaiting transfer to [facility] for long-term IV antibiotic therapy. The patient prefers to be transferred to a [facility] nursing facility 07/11/24 patient was seen and examined. No overnight events noted. His right foot wound is getting better. Seen at with Dr. Villasenor who was providing wound care 07/12/24 patient was seen and examined. Case discussed with the RN he is , status post revascularization procedure, clean granular wound to the left second toe, right heel and right posterior ankle no clinical signs of infection. The patient is being evaluated for transfer to the [facility] REVIEW OF SYSTEMS CONSTITUTIONAL: Denies fevers, chills, or night sweats. No unintentional weight loss reported. NEUROLOGICAL: Denies headache, amaurosis fugax, motor weakness, sensory deficit, vertigo/spinning sensation, gait abnormalities, or tremors. ENT: No hearing loss, otalgia, otorrhea, rhinitis, rhinorrhea, hoarseness, or sore throat. CARDIOVASCULAR: Denies any exertional angina, dyspnea on exertion, orthopnea, paroxysmal nocturnal dyspnea, palpitations, life-threatening arrhythmias, claudication. PULMONARY: Denies any shortness of breath, cough, phlegm/sputum, hemoptysis, pleuritic chest pain. SLEEP: Denies morning headaches, daytime somnolence or napping. Denies difficulty falling asleep, staying asleep, waking from sleep. Denies knowledge of snoring. GASTROINTESTINAL: Denies any type of dysphagia to either liquids or solids. Denies nausea, vomiting, pyrosis, early satiety, abdominal pain, diarrhea, constipation, or changes in stool consistency or caliber. Denies coffee-ground emesis, hematemesis, hematochezia, or melanotic stools. GENITOURINARY: Denies frequency, urgency, nocturia, hematuria or incontinence (Storage/Irritative symptoms.) Low urinary stream, straining to void, urinary intermittency or hesitancy, splitting of the voiding stream, terminal dribbling. ENDOCRINOLOGIC: Denies polyuria, polydipsia, polyphagia or heat/cold intoleran leyda. HEMATOLOGIC: Denies thrombophilia/previous clots, or coagulopathy/bleeding disorders. ONCOLOGIC: Denies personal history of malignancy. DERMATOLOGIC: Denies rashes or pruritus. PSYCHIATRIC: Denies any suicidal or homicidal ideation. Denies hallucinations. PHYSICAL EXAM GENERAL APPEARANCE: The patient is awake, alert, and oriented, in no acute cardiopulmonary distress. NEUROLOGICAL: Cranial nerves II-XII grossly intact. Motor is 5/5 in bilateral upper and lower extremities proximal to distal. No sensory deficits. HEENT: Face is symmetric. Pupils are equal and reactive. Extraocular movements are intact. NECK: Supple. No JVD. No thyromegaly. No submental, submandibular, pre- /postauricular, occipital or supraclavicular lymphadenopathy. CHEST: Normal chest expansion. No Telemetry. LUNGS: Absence of any rales, rhonchi or any wheezing. CARDIOVASCULAR: Regular. S1 and S2 normal. No appreciable rubs, murmurs or gallops. ABDOMEN: Soft, nontender, and nondistended. There is no rebound, voluntary guarding, or rigidity. : Deferred. No Abrams. EXTREMITIES: Right foot with amputation dressing is clean and intact. SKIN: No skin breakdown. Vital Signs (last 8hr) Date Time Temp Pulse Resp B/P (MAP) Pulse Ox O2 Delivery O2 Flow Rate FiO2 07/12/24 14:20 98.2 07/12/24 12:18 Room Air* 0 21 07/12/24 11:05 98.2 70 20 135/85 99 Room Air 21 LABS: Laboratory: Test 07/12/24 15:35 07/11/24 03:01 07/10/24 16:30 Range/Units Whole Blood Glucose 49 *L 70-110 MG/DL Bedside Glucose Comment Notified Nurse White Blood Count 5.5 4.8-10.8 K/uL Red Blood Count 3.42 L 4.50-6.20 MIL/uL Hemoglobin 10.5 L 14.0-18.0 g/dL Hematocrit 31.4 L 42-54 % Mean Corpuscular Volume 91.8 79-99 fL Mean Corpuscular Hemoglobin 30.7 27.0-33.0 pg Mean Corpuscular Hemoglobin Concent 33.4 32.0-36.0 g/dL Red Cell Distribution Width 13.1 11.0-15.5 % Platelet Count 258 130-400 K/uL Mean Platelet Volume 10.6 H 7.5-10.5 fL Immature Granulocyte % (Auto) 0.5 0-1 % Neutrophils (%) (Auto) 46.9 40.0-77.0 % Lymphocytes (%) (Auto) 38.5 21.0-51.0 % Monocytes (%) (Auto) 10.8 3.0-13.0 % Eosinophils (%) (Auto) 2.6 0.0-8.0 % Basophils (%) (Auto) 0.7 0.0-5.0 % Neutrophils # (Auto) 2.6 1.8-7.7 K/uL Lymphocytes # (Auto) 2.1 1.0-4.8 K/uL Monocytes # (Auto) 0.6 0.1-1.0 K/uL Eosinophils # (Auto) 0.14 0.00-0.70 K/uL Basophils # (Auto) 0.04 0.00-0.20 K/uL Absolute Immature Granulocyte (auto 0.03 0-1 K/uL Nucleated Red Blood Cells 0.0 0.0-0.19 % Sodium Level 142 136-145 mmol/L Potassium Level 4.0 3.5-5.1 mmol/L Chloride Level 108 101-111 mmol/L Carbon Dioxide Level 30 21-32 mmol/L Blood Urea Nitrogen 27 H 7-18 mg/dL Creatinine 1.3 0.5-1.3 mg/dL Glomerular Filtration Rate Calc 64 >90 mL/min Random Glucose 63 L 70-105 mg/dL Total Calcium 8.7 8.5-10.1 mg/dL Total Bilirubin 0.5 # 0.2-1.0 mg/dL Aspartate Amino Transf (AST/SGOT) 26 10-37 U/L Alanine Aminotransferase (ALT/SGPT) 27 12-78 U/L Alkaline Phosphatase 84 50-136 U/L Total Protein 7.1 6.0-8.3 g/dL Albumin 2.4 L 3.5-5.0 g/dL Prothrombin Time 12.0 H 9.6-11.6 SEC Prothromb Time International Ratio 1.15 0.85-1.15 Current Medications Medications (Trade) Dose Ordered Sig/Jl Route PRN Reason Start Time Stop Time Status Last Admin Dose Admin Acetaminophen (TYLenol 325MG TAB) 650 mg Q6H PRN PO TEMPERATURE GREATER THAN 101.5 07/03/24 03:00 08/02/24 02:59 07/12/24 14:20 650 MG Aspirin (Aspirin 81mg Ec Tab) 81 mg DAILY PO 07/04/24 09:00 08/03/24 08:59 07/12/24 08:55 81 MG Atorvastatin Calcium (LIPItor 40MG) 40 mg HS PO 07/03/24 21:00 07/05/24 15:02 DC 07/04/24 20:22 40 MG Atorvastatin Calcium (LIPItor 40MG) 80 mg HS PO 07/05/24 21:00 08/04/24 20:59 07/11/24 20:46 80 MG Chlordiazepoxide HCl (LIBrium 25 MG CAP) 25 mg Q8H PO 07/03/24 03:00 07/10/24 02:59 DC 07/09/24 18:11 25 MG Clopidogrel Bisulfate (plaVIX 75MG) 75 mg DAILY PO 07/04/24 09:00 08/03/24 08:59 07/12/24 08:55 75 MG Clopidogrel Bisulfate (plaVIX 75MG) 75 mg DAILY PO 07/10/24 09:00 07/09/24 22:47 DC Famotidine (Pepcid 20mg Tab) 20 mg DAILY PO 07/03/24 09:00 08/02/24 08:59 07/12/24 08:55 20 MG Heparin Sodium (Porcine) (HEParin 5,000 UNIT VIAL) *calculation based on ACTUAL B... AD PRN IV HEPARIN PROTOCOL 07/03/24 04:00 07/03/24 03:51 DC 07/03/24 03:41 6,000 UNIT Heparin Sodium/ Dextrose 250 ml @ 0 mls/hr Q6H IV 07/03/24 04:00 07/07/24 15:46 DC 07/06/24 21:28 10.34 MLS/HR Hydralazine HCl (APRESOLine 20MG INJ) 10 mg Q6H PRN IV For:SBP above 160;DBP above 90 07/03/24 03:00 08/02/24 02:59 Insulin Glargine (LANtus 100 UNITS/ML 10 ML VIAL) 15 units BID SQ 07/03/24 21:00 08/02/24 20:59 07/12/24 08:39 15 UNITS Leptospermum Honey ([facility]) 1 APPL DAILY TP 07/03/24 14:00 08/02/24 13:59 07/12/24 08:56 1 APPL Lorazepam (AtiVAN) 1 mg Q4H PRN IVP ALCOHOL WITHDRAWAL PROTOCOL 07/03/24 03:00 07/10/24 02:59 DC Magnesium Sulfate 50 ml @ 0 mls/hr PROTOCOL PRN IV Electrolyte abnormality 07/03/24 12:00 08/02/24 11:59 07/08/24 11:06 25 MLS/HR Metoprolol Tartrate (loprESSOR) 25 mg BID PO 07/03/24 21:00 08/02/24 20:59 07/12/24 08:56 25 MG Miscellaneous Medication (Insulin Degludec (Tresiba Flextouch U-100)) 15 units ACBKFST SQ 07/04/24 07:30 07/03/24 14:11 DC Miscellaneous Medication ([Tramadol ] ) 50 mg BID PRN PO P610 07/03/24 14:00 07/03/24 14:09 DC Morphine Sulfate (morPHINE 2MG SYG) 2 mg Q4H PRN IVP SEVERE PAIN (7-10) 07/03/24 03:30 07/08/24 06:29 DC Nitroglycerin (Nitroglycerin 1gm Oint) 0.5 inch Q8H TD 07/03/24 03:00 08/02/24 02:59 07/12/24 11:52 0.5 INCH Ondansetron HCl (zoFRAN 4MG INJ) 4 mg Q6H PRN IV NAUSEA/VOMITING 07/03/24 03:00 08/02/24 02:59 Pharmacy Profile Note (Pharmacy Communication) 1 each ONCE MISC 07/07/24 13:00 07/07/24 12:55 DC Pharmacy Profile Note (Pharmacy Communication) 1 each PROTOCOL PRN MISC ETOH Withdrawal Score changes 07/03/24 03:00 07/10/24 02:59 DC Piperacillin Sod/ Tazobactam Sod (Zosyn 3.375gm+NS 50ml) 3.375 gm Q8H IV 07/03/24 01:30 07/03/24 03:03 DC 07/03/24 01:37 3.375 GM Piperacillin Sod/ Tazobactam Sod (Zosyn 3.375gm+NS 50ml) 3.375 gm Q8H IVPB 07/03/24 09:30 07/13/24 09:29 07/12/24 08:55 3.375 GM Potassium Chloride 100 ml @ 50 mls/hr AD PRN IV POTASSIUM PROTOCOL 07/03/24 12:00 08/02/24 11:59 Potassium Chloride 100 ml @ 100 mls/hr AD PRN IV POTASSIUM PROTOCOL 07/04/24 13:00 07/04/24 12:43 DC Potassium Chloride (K-Dur/Klor-Con 20meq) 20 meq AD PRN PO POTASSIUM PROTOCOL 07/04/24 13:00 08/03/24 12:59 07/05/24 17:10 20 MEQ Potassium Chloride (KCl 10% Elixir 20meq/15ml) 20 meq AD PRN PO POTASSIUM PROTOCOL 07/04/24 13:00 08/03/24 12:59 07/07/24 15:38 20 MEQ Pregabalin (TJHado55KE) 75 mg BID PO 07/03/24 21:00 08/02/24 20:59 07/12/24 08:55 75 MG Rivaroxaban (Xarelto) 2.5 mg BID PO 07/10/24 09:00 08/10/24 12:00 07/12/24 08:55 2.5 MG Sodium Chloride 1,000 ml @ 150 mls/hr Q6H40M IV 07/07/24 14:00 07/07/24 17:59 DC 07/07/24 15:15 150 MLS/HR Sodium Chloride (NS 50ml) 50 ml AD IV 07/03/24 03:00 07/03/24 11:34 DC Thiamine HCl (Vitamin B-1) 100 mg DAILY PO 07/05/24 09:00 08/04/24 08:59 07/12/24 08:56 100 MG Tigecycline 50 mg/ Sodium Chloride 100 ml @ 100 mls/hr Q12H IV 07/08/24 01:00 07/15/24 00:59 07/12/24 12:25 100 MLS/HR Vancomycin HCl (Vancomycin 1.25 Gm/250 ml Bag) 1.25 gm ONCE IV 07/03/24 11:30 07/03/24 11:33 DC DIAGNOSTICS / RADIOLOGY: [ ] ASSESSMENT: ASSESSMENT: Chest pain, POA Non-STEMI, currently on heparin drip, POA Elevated cardiac enzymes, POA Right inefcted foot wound, POA Cellulitis of right lower extremity. POA. anemia / POA Sepsis, POA Alcohol dependence, POA Leukocytosis, POA Uncontrolled Diabetes mellitius type2, POA Hypertension Hyperlipidemia Type 2 diabetes mellitus Right internal carotid artery stenosis History of CVA in April 2022 Grade 1 diastolic heart failure by 2D echo on 05/26/2023 with EF 40-45% Peripheral artery disease right lower extremity by ultrasound on 04/14/2024]] Myositis /right foot POA PLAN: Peripheral artery disease / post peripheral angiogram and FINANCIAL ANALYSIS MANAGER: FINANCIAL ANALYSIS MANAGER with DC be of distal right SFA. monitor urine output and renal function. Optimize hydration status prior to annual monitor for postprocedural complication. Myocardial infraction continue aspirin continue clopidogrel 75 mg continue atorvastatin continue metoprolol start Xarelto 2.5 mg b.i.d. Right foot wound, right ankle wound: Wound gram stain revealed Gram-negative rods and Gram-positive cocci in clusters, staph aureus monitor for signs of worsening infection. Repeat WBC count and inflammatory markers in the am Follow up on wound culture results Wound Care Service recommended Medihoney dressings. Continue Zosyn IV And tigecycline 50 mg q.12h per ID recommendations. Sepsis, leukocytosis: Fluid resuscitation with lactated Ringer's 30 mL/kg. Continue antibiotic therapy with Zosyn and tigecycline, Reviewed patient's lactic acid, unremarkable. continue blood cultures to assess clearance. ID team following for targeted therapy. Avoid invasive cardiac workup elevated troponins likely secondary to sepsis or demand ischemia. Urinary tract infection, POA Reviewed patient's urinalysis which is mildly suggestive of UTI very few white blood cell count this could be a contaminated sample although squamous epithelial cells are rare. Differential diagnosis of UTI we will be covered by aforementioned antimicrobial therapy, Zosyn. Follow up on urine culture results repeat CBC tomorrow consider iron supplementation if anemia persists discontinue heparin in the a.m. tomorrow. Monitor APTT in the morning. Consider resuming DVT prophylaxis postprocedure if indicated. Continue aspirin 81 mg daily, atorvastatin 80 mg daily, clopidogrel 75 mg daily and metoprolol tartrate 25 mg b.i.d.. Alcohol dependence: Counseled patient on alcohol cessation. Librium 25 mg by mouth every 8 hours, we will monitor titrate As needed Ativan for alcohol withdrawal 1 mg every 4 hours Use CIWA-AR assessment tool Document EtOH withdrawal score Assess the need for seizure and aspiration precautions We will order thiamine preparation for the patient Diabetes mellitus type 2: Check hemoglobin A1c in a.m. Glucometer checks a.c. and HS 1800 ADA diet Humulin R sliding scale Hypertension, hyperlipidemia, right internal carotid artery stenosis, grade 1 diastolic heart failure Intake and output every shift. Daily weights Hydralazine 10 mg IV every 4 hours for systolic blood pressure greater than 160 mmHg, aspirin 81 mg daily, clopidogrel 75 mg daily, atorvastatin 80 mg HS. GI prophylaxis, famotidine DVT prophylaxis, patient will be on heparin drip as mentioned above, as per Cardiology recommendation Discharge planning and transfer plan patient is medically stable for transfer to SNF [facility] for IV antibiotic therapy for 6 weeks per ID recommendation AWAITING FINAL CONFIRMATION OF SNF ACCEPTANCE. MAHIN BROCK MD Jul 12, 2024 16:07
--- NOTE | 2024-07-12 16:57 | NUR ---
DC PLAN SENT UPDATED CLINICALS TO FACILITY INCLUDING PT NOTES. Addendum: 07/12/24 at 1703 by CONCHA LEMA RN CM Amended: Links added.
[2024-07-12 20:00] VITALS: BP 136/94; PULSE 90; RESP 18; TEMP 98.6
--- NOTE | 2024-07-12 20:09 | PN ---
SUBJECTIVE: The patient is a very pleasant 59-year-old diabetic, Latin-S[place]i male who is seen on date of service of 07/12/2024. He is awake, afebrile at 98.2, blood pressure 135/85, pulse 75 and respirations 20. He has a white count that is 5.5, H and H are 10.5 and 31.4 and platelets 258. The patient is currently receiving IV tigecycline q.12h. and Zosyn q.8h., per Infectious Disease. He has an MRI negative for osteomyelitis to the right foot. The patient has a past medical history significant for cellulitis, necrotizing fasciitis. His recent MRI negative for osteomyelitis. 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 He has hypertension, hyperlipidemia, history of alcohol abuse, type 2 diabetes, internal carotid artery stenosis, history of CVA, grade 1 diastolic dysfunction, peripheral vascular disease, status post revascularization procedure. SOCIAL HISTORY: The patient drinks 12 beers a day. REVIEW OF SYSTEMS: CONSTITUTIONAL: No chills, no fevers, no night sweats, no nausea, no vomiting, no diarrhea. HEENT: No problems with his eyes, ears, nose or throat. CARDIOVASCULAR: Having no current chest pain. He is status post successful revascularization procedure of the right lower extremity by the Cardiology Service. He had a successful intervention of the superficial femoral artery and found to have runoff to the foot via the posterior tibial artery and found to have occlusion of the anterior tibial artery and peroneal artery on that right side. PSYCHIATRIC: Denied any depression. GENITOURINARY: BUN 27, creatinine 1.3. 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 He has a Chopart level of amputation on the right. INTEGUMENT: He has an ulcer to the tip of the left second toe, 6 mm x 6mm x 1 mm. He has an ulcer to the plantar aspect of the right heel that is 12 x 12 x 1 mm. He has an ulcer to the posterior aspect of the right ankle 8 cm x 2.5 cm x 1 mm. OBJECTIVE: Examination today shows he has a well-healed Chopart amputation on the right, well-healed plantar first toe amputation on the left. He has an ulcer to the tip of the left second toe that is 6 x __6___ x 1 mm. He has an ulcer to the RIGHT heel, 12 x 12 x 1 mm. He has an ulcer to the posterior ankle on the right, 8 cm x 2.5 cm x 1 mm, clean and granular. ASSESSMENT: Diabetes, peripheral vascular disease, status post revascularization procedure. A clean granular wound to the left second toe. He has a right posterior heel, posterior ankle ulcer, no signs of infection. The patient is being evaluated for transfer to the [facility]. The patient is currently receiving tigecycline and Zosyn. PLAN: We will continue with the IV tigecycline and the IV Zosyn. Medihoney dressings, offloading measures. Anticipate transfer to [facility] for continuation of IV antibiotics, local wound care and physical therapy. TID: [id number] RECEIPT: [id number] MTDD
[2024-07-13] VITALS (7 sets, daily range): BP systolic 105–136; BP diastolic 66–85; PULSE 66–77; RESP 18–20; TEMP 97.6–98.1; O2SAT 99
--- NOTE | 2024-07-13 06:40 | PN ---
SUBJECTIVE: The patient is a 59-year-old diabetic, [place] male who is followed up for a polymicrobial wound infection to his right foot, right ankle. The patient has been afebrile at 97.9, pulse 76, respirations 18, blood pressure 107/66. He is status post revascularization procedure successfully performed to the right lower extremity by the Cardiology Service. White count is 5.5, H and H 10.5 and 31.4, platelets 258. BUN and creatinine level 27 and 1.3, glucose 80. The patient is being evaluated for outpatient placement. He is currently receiving tigecycline and Zosyn. Wound cultures have shown Klebsiella, morganella, Staph aureus, and Acinetobacter baumannii haemolyticus. The patient has been receiving Medihoney dressings to his foot wounds and his ankle wound on the right, being followed for a history of cellulitis, necrotizing fasciitis. Recent MRI right foot negative for osteomyelitis. The patient is status post Chopart's amputation on the right. He has hypertension, hyperlipidemia, history of alcohol abuse, type 2 diabetes, internal carotid artery stenosis, history of CVA, grade 1 diastolic dysfunction, peripheral vascular disease, status post revascularization procedure. SOCIAL HISTORY: He drinks 12 beers a day. REVIEW OF SYSTEMS: CONSTITUTIONAL: Having no constitutional symptoms. HEENT: No problems with eyes, ears, nose, or throat. CARDIOVASCULAR: He is having no chest pain. He is status post successful revascularization right lower extremity by Cardiology Service. He has successful intervention of the superficial femoral artery and found to have runoff via the posterior tibial and found to have occlusion of the anterior tibial artery and peroneal arteries on the right side. PSYCHIATRIC: Denied any depression. History of alcohol abuse. GENITOURINARY: BUN 17, creatinine 1.3. MUSCULOSKELETAL: He has partial great toe amputation on the left. He has a Chopart's level of amputation on the right. INTEGUMENT: He has an ulcer to the left second toe, 6 x 6 x 1 mm. He has an ulcer to plantar aspect of the right heel, 12 x 12 x 1 mm. He has an ulcer to the posterior aspect of the right ankle, 8 cm x 2.5 cm x 1 mm. OBJECTIVE: Exam today shows he has a well-healed Chopart's amputation on the right. He has a well-healed first partial toe amputation on the left. He has an ulcer to the tip of the left great toe, 6 x 16x 1 mm. He has an ulcer to the RIGHT heel 12 x 12 x 1 mm. He has an ulcer to the posteior right heel and right ankle, 8 cm x 2.5 cm x 1 mm, clean and granular. ASSESSMENT: Diabetes, peripheral vascular disease, status post revascularization, clean granular wounds to the left second toe, posterior ankle posterior heel and to the plantar heel on the right. The patient is being evaluated for transfer to the [facility], currently receiving tigecycline and Zosyn. PLAN: We will continue with Medihoney dressings. Continue with tigecycline and Zosyn. Continue with offloading measures. Anticipate transfer to the [facility] for continuation of antibiotics, local wound care, and physical therapy. TID: [id number] RECEIPT: [id number] MTD
--- NOTE | 2024-07-13 13:51 | PN ---
[facility] PROGRESS NOTE Date of Service: Jul 13, 2024 Time of Service: 13:50 SUBJECTIVE: Mr. Patrick is a 59-year-old male that was seen and examined today on 07/03/2024. Patient is a good historian of personal health Patient states that he came to the emergency department with a chief complaint of chest pain. Onset was 07/02/2024 at 4:30 p.m.. Location is to left lower chest along the midclavicular line. Duration is on and off. Character is described as pressure. Symptoms are aggravated with, " walking around the bar. "Patient states he was at a local bar consuming alcohol prior to coming to the emergency department. There was no alleviating factors. Patient reports associated right foot pain. Today in the emergency department WBCs 12.2, left shift neutrophils 82.2%, glucose 184 mg/dL, high sensitivity troponin 183, BNP 249, urinalysis is unremarkable, urine toxicology is unremarkable, alcohol level is 25. Emergency room physician recommended that patient be admitted with a diagnosis of chest pain. Additionally patient presented with a heart rate of 112, combined with patient's WBCs of 12.2 and identified suspected source of infection being right lower extremity wounds patient met clinical sepsis criteria. 07/03/2024 The patient was examined at bedside. The patient states resolution of his chest pain completely. There is wound in his right lower extremity. His temperature is fluctuating and has slight fever. The patient appears very weak fatigued and tired. He was on prolonged courses of antibiotics for a longer duration. He is in mild distress due to pain from his foot. Coordinating care with the Wound datastage consultant cardiology team and Infectious Disease team. He was recently hospitalized for prolonged period for his right lower extremity wound infection. Discuss the goal of care with the patient. Evaluating and ruling out all causes of his chest pain. 07/04/2024 10AM Patient is seen and examined at the bedside. He denies chest pain, fever, chills. He complains of right foot pain. Blood culture results are negative. He is on heparin drip in view of NSTEMI. Chest x-ray and CT PE resulted in no acute findings. Urinalysis positive for leukocyte esterase. Troponin trended up from 800-1243. Right wound aspirate gram stain resulted in gram negative rods and Gram-positive cocci in clusters Staph aureus. 07/05/24: Patient seen and examined in the morning denies any new complaints. Denies chest pain denies shortness of breath denies fever or chills. MRI shows no osteomyelitis only cellulitis changes. Blood culture is growing Gram-positive meghna in one of the bottle final sensitivity and identification is still pending. Cardiology has already seen the patient and recommended conservative management with heparin drip for48 hours aspirin Plavix and high- intensity statin. Heparin drip will be stopped today July 06, 2024 the patient was examined at bedside, he had a history of ischemic cardiomyopathy, peripheral artery disease, chronic right foot infection with previous osteomyelitis, recent bacteremia. He is currently admitted for management of myositis and cellulitis of the right foot, peripheral artery disease and evaluation of elevated troponin. The patient remains hemodynamically stable, denies new complaints and verbalizes understanding of t he treatment plan. No overnight events or complaints. No new chest pain, dyspnea, dizziness or palpitations. Heparin will be held in the a.m. aerobic active Bactrim baumannii culture positive. And blood cultures Gram- positive rods detected in 1-2 bottles pending speciation and sensitivities. And aerobic culture for Klebsiella oxytoca, Morganella morganii, staph aureus is positive. 07/07/24 patient was evaluated in the room this morning, he is very somnolent, he is on CIWA protocol taking Librium. He is in and out of consciousness. Apparently patient drinks four beers daily. Patient is scheduled for angio today with Dr. Muhammad 07/08/24 The patient underwent an abdominal angiogram with pelvic runoff followed by right lower extremity digital subtraction angiogram with drug coated balloon percutaneous transluminal angioplasty of the distal right superficial femoral a rtery. The intervention was successful significantly improving the 50% distal right SFA stenosis, which was reduced to 0% residual stenosis. The patient remains mildly drowsy but conversant, with no new complaints and no overnight events. Reports mild discomfort at the catheterization site and bilateral lower extremity discomfort. He understands the treatment plan and is awaiting transfer to a long-term facility for IV antibiotic therapy for 6 weeks As per Infectious Disease suggestion. July 09, 2024 patient was examined at bedside today. No overnight events reported. The patient remains clinically stable and awaiting transfer to [facility] for long-term IV antibiotic therapy. The patient prefers to be transferred to a [place] long-term facility. 07/10/24 patient was examined at bedside today. No overnight events reported. The patient remains clinically stable and awaiting transfer to [facility] for long-term IV antibiotic therapy. The patient prefers to be transferred to a [facility] nursing facility 07/11/24 patient was seen and examined. No overnight events noted. His right foot wound is getting better. Seen at with Dr. Villasenor who was providing wound care 07/12/24 patient was seen and examined. Case discussed with the RN he is , status post revascularization procedure, clean granular wound to the left second toe, right heel and right posterior ankle no clinical signs of infection. The patient is being evaluated for transfer to the [facility] 07/13/24 patient was seen and examined. He was up by the side of the bed and in no distress. We are waiting for authorization for transferred to the [facility] REVIEW OF SYSTEMS CONSTITUTIONAL: Denies fevers, chills, or night sweats. No unintentional weight loss reported. NEUROLOGICAL: Denies headache, amaurosis fugax, motor weakness, sensory deficit, vertigo/spinning sensation, gait abnormalities, or tremors. ENT: No hearing loss, otalgia, otorrhea, rhinitis, rhinorrhea, hoarseness, or sore throat. CARDIOVASCULAR: Denies any exertional angina, dyspnea on exertion, orthopnea, paroxysmal nocturnal dyspnea, palpitations, life-threatening arrhythmias, claudication. PULMONARY: Denies any shortness of breath, cough, phlegm/sputum, hemoptysis, pleuritic chest pain. SLEEP: Denies morning headaches, daytime somnolence or napping. Denies difficulty falling asleep, staying asleep, waking from sleep. Denies knowledge of snoring. GASTROINTESTINAL: Denies any type of dysphagia to either liquids or solids. Denies nausea, vomiting, pyrosis, early satiety, abdominal pain, diarrhea, constipation, or changes in stool consistency or caliber. Denies coffee-ground emesis, hematemesis, hematochezia, or melanotic stools. GENITOURINARY: Denies frequency, urgency, nocturia, hematuria or incontinence (Storage/Irritative symptoms.) Low urinary stream, straining to void, urinary intermittency or hesitancy, splitting of the voiding stream, terminal dribbling. ENDOCRINOLOGIC: Denies polyuria, polydipsia, polyphagia or heat/cold intolerances. HEMATOLOGIC: Denies thrombophilia/previous clots, or coagulopathy/bleeding disorders. ONCOLOGIC: Denies personal history of malignancy. DERMATOLOGIC: Denies rashes or pruritus. PSYCHIATRIC: Denies any suicidal or homicidal ideation. Denies hallucinations. PHYSICAL EXAM GENERAL APPEARANCE: The patient is awake, alert, and oriented, in no acute cardiopulmonary distress. NEUROLOGICAL: Cranial nerves II-XII grossly intact. Motor is 5/5 in bilateral upper and lower extremities proximal to distal. No sensory deficits. HEENT: Face is symmetric. Pupils are equal and reactive. Extraocular movements are intact. NECK: Supple. No JVD. No thyromegaly. No submental, submandibular, pre-/po stauricular, occipital or supraclavicular lymphadenopathy. CHEST: Normal chest expansion. No Telemetry. LUNGS: Absence of any rales, rhonchi or any wheezing. CARDIOVASCULAR: Regular. S1 and S2 normal. No appreciable rubs, murmurs or gallops. ABDOMEN: Soft, nontender, and nondistended. There is no rebound, voluntary guarding, or rigidity. : Deferred. No Abrams. EXTREMITIES: Right foot with amputation dressing is clean and intact. SKIN: No skin breakdown. Vital Signs (last 8hr) Date Time Temp Pulse Resp B/P (MAP) Pulse Ox O2 Delivery O2 Flow Rate FiO2 07/13/24 11:37 97.5 71 20 105/73 99 Room Air 21 07/13/24 07:05 97.9 72 20 105/71 99 Room Air 21 LABS: Laboratory: Test 07/13/24 10:47 07/12/24 15:35 Range/Units Whole Blood Glucose 94 70-110 MG/DL Bedside Glucose Comment Notified Nurse Current Medications Medications (Trade) Dose Ordered Sig/Jl Route PRN Reason Start Time Stop Time Status Last Admin Dose Admin Acetaminophen (TYLenol 325MG TAB) 650 mg Q6H PRN PO TEMPERATURE GREATER THAN 101.5 07/03/24 03:00 08/02/24 02:59 07/13/24 02:54 650 MG Aspirin (Aspirin 81mg Ec Tab) 81 mg DAILY PO 07/04/24 09:00 08/03/24 08:59 07/13/24 08:59 81 MG Atorvastatin Calcium (LIPItor 40MG) 40 mg HS PO 07/03/24 21:00 07/05/24 15:02 DC 07/04/24 20:22 40 MG Atorvastatin Calcium (LIPItor 40MG) 80 mg HS PO 07/05/24 21:00 08/04/24 20:59 07/12/24 20:55 80 MG Chlordiazepoxide HCl (LIBrium 25 MG CAP) 25 mg Q8H PO 07/03/24 03:00 07/10/24 02:59 DC 07/09/24 18:11 25 MG Clopidogrel Bisulfate (plaVIX 75MG) 75 mg DAILY PO 07/04/24 09:00 08/03/24 08:59 07/13/24 08:58 75 MG Clopidogrel Bisulfate (plaVIX 75MG) 75 mg DAILY PO 07/10/24 09:00 07/09/24 22:47 DC Famotidine (Pepcid 20mg Tab) 20 mg DAILY PO 07/03/24 09:00 08/02/24 08:59 07/13/24 08:58 20 MG Heparin Sodium (Porcine) (HEParin 5,000 UNIT VIAL) *calculation based on ACTUAL B... AD PRN IV HEPARIN PROTOCOL 07/03/24 04:00 07/03/24 03:51 DC 07/03/24 03:41 6,000 UNIT Heparin Sodium/ Dextrose 250 ml @ 0 mls/hr Q6H IV 07/03/24 04:00 07/07/24 15:46 DC 07/06/24 21:28 10.34 MLS/HR Hydralazine HCl (APRESOLine 20MG INJ) 10 mg Q6H PRN IV For:SBP above 160;DBP above 90 07/03/24 03:00 08/02/24 02:59 Insulin Glargine (LANtus 100 UNITS/ML 10 ML VIAL) 15 units BID SQ 07/03/24 21:00 08/02/24 20:59 07/13/24 09:02 15 UNITS Leptospermum Honey ([facility]) 1 APPL DAILY TP 07/03/24 14:00 08/02/24 13:59 07/13/24 08:59 1 APPL Lorazepam (AtiVAN) 1 mg Q4H PRN IVP ALCOHOL WITHDRAWAL PROTOCOL 07/03/24 03:00 07/10/24 02:59 DC Magnesium Sulfate 50 ml @ 0 mls/hr PROTOCOL PRN IV Electrolyte abnormality 07/03/24 12:00 08/02/24 11:59 07/08/24 11:06 25 MLS/HR Metoprolol Tartrate (loprESSOR) 25 mg BID PO 07/03/24 21:00 08/02/24 20:59 07/12/24 20:55 25 MG Miscellaneous Medication (Insulin Degludec (Tresiba Flextouch U-100)) 15 units ACBKFST SQ 07/04/24 07:30 07/03/24 14:11 DC Miscellaneous Medication ([Tramadol ] ) 50 mg BID PRN PO P610 07/03/24 14:00 07/03/24 14:09 DC Morphine Sulfate (morPHINE 2MG SYG) 2 mg Q4H PRN IVP SEVERE PAIN (7-10) 07/03/24 03:30 07/08/24 06:29 DC Nitroglycerin (Nitroglycerin 1gm Oint) 0.5 inch Q8H TD 07/03/24 03:00 08/02/24 02:59 07/13/24 12:35 0.5 INCH Ondansetron HCl (zoFRAN 4MG INJ) 4 mg Q6H PRN IV NAUSEA/VOMITING 07/03/24 03:00 08/02/24 02:59 Pharmacy Profile Note (Pharmacy Communication) 1 each ONCE MISC 07/07/24 13:00 07/07/24 12:55 DC Pharmacy Profile Note (Pharmacy Communication) 1 each PROTOCOL PRN MISC ETOH Withdrawal Score changes 07/03/24 03:00 07/10/24 02:59 DC Piperacillin Sod/ Tazobactam Sod (Zosyn 3.375gm+NS 50ml) 3.375 gm Q8H IV 07/03/24 01:30 07/03/24 03:03 DC 07/03/24 01:37 3.375 GM Piperacillin Sod/ Tazobactam Sod (Zosyn 3.375gm+NS 50ml) 3.375 gm Q8H IVPB 07/03/24 09:30 07/13/24 09:29 DC 07/13/24 01:32 3.375 GM Piperacillin Sod/ Tazobactam Sod (Zosyn 3.375gm+NS 50ml) 3.375 gm Q8H IVPB 07/13/24 12:30 07/23/24 12:29 Potassium Chloride 100 ml @ 50 mls/hr AD PRN IV POTASSIUM PROTOCOL 07/03/24 12:00 08/02/24 11:59 Potassium Chloride 100 ml @ 100 mls/hr AD PRN IV POTASSIUM PROTOCOL 07/04/24 13:00 07/04/24 12:43 DC Potassium Chloride (K-Dur/Klor-Con 20meq) 20 meq AD PRN PO POTASSIUM PROTOCOL 07/04/24 13:00 08/03/24 12:59 07/05/24 17:10 20 MEQ Potassium Chloride (KCl 10% Elixir 20meq/15ml) 20 meq AD PRN PO POTASSIUM PROTOCOL 07/04/24 13:00 08/03/24 12:59 07/07/24 15:38 20 MEQ Pregabalin (FRXrod20SK) 75 mg BID PO 07/03/24 21:00 08/02/24 20:59 07/13/24 08:58 75 MG Rivaroxaban (Xarelto) 2.5 mg BID PO 07/10/24 09:00 08/10/24 12:00 07/13/24 08:58 2.5 MG Sodium Chloride 1,000 ml @ 150 mls/hr Q6H40M IV 07/07/24 14:00 07/07/24 17:59 DC 07/07/24 15:15 150 MLS/HR Sodium Chloride (NS 50ml) 50 ml AD IV 07/03/24 03:00 07/03/24 11:34 DC Thiamine HCl (Vitamin B-1) 100 mg DAILY PO 07/05/24 09:00 08/04/24 08:59 07/13/24 08:59 100 MG Tigecycline 50 mg/ Sodium Chloride 100 ml @ 100 mls/hr Q12H IV 07/08/24 01:00 07/15/24 00:59 07/13/24 12:34 100 MLS/HR Vancomycin HCl (Vancomycin 1.25 Gm/250 ml Bag) 1.25 gm ONCE IV 07/03/24 11:30 07/03/24 11:33 DC DIAGNOSTICS / RADIOLOGY: [ ] ASSESSMENT: ASSESSMENT: Chest pain, POA Non-STEMI, currently on heparin drip, POA Elevated cardiac enzymes, POA Right inefcted foot wound, POA Cellulitis of right lower extremity. POA. anemia / POA Sepsis, POA Alcohol dependence, POA Leukocytosis, POA Uncontrolled Diabetes mellitius type2, POA Hypertension Hyperlipidemia Type 2 diabetes mellitus Right internal carotid artery stenosis History of CVA in April 2022 Grade 1 diastolic heart failure by 2D echo on 05/26/2023 with EF 40-45% Peripheral artery disease right lower extremity by ultrasound on 04/14/2024]] Myositis /right foot POA PLAN: Peripheral artery disease / post peripheral angiogram and BILINGUAL ACCOUNT MANAGER: BILINGUAL ACCOUNT MANAGER with DC be of distal right SFA. monitor urine output and renal function. Optimize hydration status prior to annual monitor for postprocedural complication. Myocardial infraction continue aspirin continue clopidogrel 75 mg continue atorvastatin continue metoprolol start Xarelto 2.5 mg b.i.d. Right foot wound, right ankle wound: Wound gram stain revealed Gram-negative rods and Gram-positive cocci in clusters, staph aureus monitor for signs of worsening infection. Repeat WBC count and inflammatory markers in the am Follow up on wound culture results Wound Care Service recommended Medihoney dressings. Continue Zosyn IV And tigecycline 50 mg q.12h per ID recommendations. Sepsis, leukocytosis: Fluid resuscitation with lactated Ringer's 30 mL/kg. Continue antibiotic therapy with Zosyn and tigecycline, Reviewed patient's lactic acid, unremarkable. continue blood cultures to assess clearance. ID team following for targeted therapy. Avoid invasive cardiac workup elevated troponins likely secondary to sepsis or demand ischemia. Urinary tract infection, POA Reviewed patient's urinalysis which is mildly suggestive of UTI very few white blood cell count this could be a contaminated sample although squamous epithelial cells are rare. Differential diagnosis of UTI we will be covered by aforementioned antimicrobial therapy, Zosyn. Follow up on urine culture results repeat CBC tomorrow consider iron supplementation if anemia persists discontinue heparin in the a.m. tomorrow. Monitor APTT in the morning. Consider resuming DVT prophylaxis postprocedure if indicated. Continue aspirin 81 mg daily, atorvastatin 80 mg daily, clopidogrel 75 mg daily and metoprolol tartrate 25 mg b.i.d.. Alcohol dependence: Counseled patient on alcohol cessation. Librium 25 mg by mouth every 8 hours, we will monitor titrate As needed Ativan for alcohol withdrawal 1 mg every 4 hours Use CIWA-AR assessment tool Document EtOH withdrawal score Assess the need for seizure and aspiration precautions We will order thiamine preparation for the patient Diabetes mellitus type 2: Check hemoglobin A1c in a.m. Glucometer checks a.c. and HS 1800 ADA diet Humulin R sliding scale Hypertension, hyperlipidemia, right internal carotid artery stenosis, grade 1 diastolic heart failure Intake and output every shift. Daily weights Hydralazine 10 mg IV every 4 hours for systolic blood pressure greater than 160 mmHg, aspirin 81 mg daily, clopidogrel 75 mg daily, atorvastatin 80 mg HS. GI prophylaxis, famotidine DVT prophylaxis, patient will be on heparin drip as mentioned above, as per Cardiology recommendation Discharge planning and transfer plan patient is medically stable for transfer to SN[facility] for IV antibiotic therapy for 6 weeks per ID recommendation AWAITING FINAL CONFIRMATION OF SNF ACCEPTANCE. MAHIN BROCK MD Jul 13, 2024 13:51
[2024-07-13] MEDS: ZOSYN 3.375GM +NS 50ML IVPB SCH (14:43)
--- NOTE | 2024-07-13 15:03 | NUR ---
[facility] Follow-up: Patient re-assessed by wound healing team. See wound assessment. Assessment and recommendations provided to primary nurse. Education provided. Wound care done. Addendum: 07/14/24 at 1134 by SARINA ALVARADO RN RN/ Amended: Links added.
--- NOTE | 2024-07-13 20:43 | PN ---
INFECTIOUS DISEASE PROGRESS NOTE Date of Service: Jul 13, 2024 SUBJECTIVE: This is a 72-year-old male patient who was seen and examined at bedside in room 431. Patient is awake, alert and oriented x 3. Patient with polymicrobial infection to the right foot stump. Patient is status post status post peripheral angiogram with successful intervention of the right SFA stenosis on 07/07/2024. Will continue on Tygacil and zosyn. Patient will need six weeks of IV antibiotics and Case management working on placement. We will continue to follow patient's care. PHYSICAL EXAM EYES: Anicteric. Pupils equal and reactive. HENT: No oral thrush seen, moist Oral mucosa. NECK: Supple, no JVD or thyromegaly. LUNGS: Good air entry. No rales, no rhonchi. CARDIOVASCULAR: S1, S2 regular. No murmur heard. ABDOMEN: Soft, non tender, bowel sounds present, no organomegaly. CENTRAL NERVOUS SYSTEM: Awake, alert, oriented x 3. SKIN: No rashes, no swelling. LYMPHATICS: No peripheral lymphadenopathy. MUSCULOSKELETAL: No joint swelling, erythema or tenderness. 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 Ulcer involving the posterior aspect of the right lower leg. Ulcer involving the right stump. BACK: No deformity, no pressure ulcer. GENITOURINARY: No dysuria or hematuria. Vital Sign (Last 12 Hours) 07/13/24 07/13/24 07/13/24 11:37 15:05 20:28 Temp 97.5 97.9 98.1 Pulse 71 77 77 Resp 20 20 18 B/P (MAP) 105/73 136/82 111/69 Pulse Ox 99 98 97 O2 Delivery Room Air Room Air Room Air FiO2 21 21 21 Intake & Output (last 24hrs) 07/12/24 07/12/24 07/13/24 15:00 23:00 07:00 Intake Total 875 ml Output Total 1500 ml 200 ml Balance -625 ml -200 ml LABS: Laboratory: Test 07/13/24 19:27 07/12/24 15:35 Range/Units Whole Blood Glucose 87 70-110 MG/DL Bedside Glucose Comment Notified Nurse ASSESSMENT: Right foot stump ulcer with polymicrobial infection, Acinetobacter baumannii, Klebsiella oxytoca, Morganella morganii and Staphylococcus aureus. Right lower extremity cellulitis. Peripheral artery disease, status post abdominal aortogram with pelvic runoff with successful intervention of the right SFA stenosis on 07/07/2024. Possible angina pectoris. Elevated troponin. Diabetes mellitus. Obesity. PLAN: Continue Tygacil IV. Continue Zosyn IV. Continue GI prophylaxis. Continue antiplatelets. Continue wound care. Continue pain management. Continue thiamine. Continue monitoring glucose levels. Patient will need 6 weeks of IV antibiotics. Pending placement. This case was reviewed and discussed with my supervising physician and the above assessment and plan was formulated and agreed upon. ATTESTATION BY PHYSICIAN I have seen and examined the patient. I reviewed the documentation, medical decision making, and treatment plan as noted by the mid-level provider above. I agree with the findings and plan of care. MÓNICA MOSQUEDA MD, MIRTA L [facility] Jul 13, 2024 20:43
[2024-07-14] VITALS (7 sets, daily range): BP systolic 96–142; BP diastolic 58–86; PULSE 67–76; RESP 17–19; TEMP 97.7–98.2; O2SAT 100
--- NOTE | 2024-07-14 06:33 | PN ---
SUBJECTIVE: The patient is a 77-year-old diabetic, Latin-Sammarinese male who is followed up for an ulcer to the plantar heel and to the posterior heel and ankle with a polymicrobial wound infection on that right side. T-max 98.2, pulse 76, respirations 17, blood pressure 96/58. White count 5.5, H and H 10.5 and 31.4, blood sugar is 87. The patient is currently receiving IV Zosyn, IV tigecycline, Medihoney dressings. The patient is being evaluated for outpatient placement. The patient has a polymicrobial wound infection with Klebsiella morganella, Staph aureus and Acinetobacter baumannii haemolyticus. 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 He has had an MRI on the right side, negative for osteomyelitis. He is status post revascularization procedure to that right lower extremity performed by [facility]. SOCIAL HISTORY: Drinks 12 beers a day. REVIEW OF SYSTEMS: CONSTITUTIONAL: Having no constitutional symptoms. HEENT: No problems with eyes, ears, nose or throat. CARDIOVASCULAR: He is having no chest pain. He has successful revascularization procedure, right lower extremity by the Cardiology Service with successful intervention of the superficial femoral artery, found to have runoff via the posterior tibial artery to that right foot and have occlusion of the anterior tibial artery and peroneal artery on that right side. PSYCHIATRIC: Denied any depression, history of alcohol abuse. GENITOURINARY: BUN 17, creatinine 1.3. 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 INTEGUMENT: He has an ulcer to the second toe, 6 x 6x1 on the left. He has an ulcer to the plantar aspect of the right heel, 12 x 12 x 1. He has an ulcer to the posterior aspect of the right ankle, 8 cm x 2.5 cm x 1 mm. Examination today shows a well-healed Chopart amputation on the right. He has an ulcer to the tip of the left second toe that is 6 x 6 x 1 mm. He has an ulcer to the right heel that is 12 x 12 x 1 mm. He has an ulcer to the right ankle that is 8 cm x 2.5 cm x 1 mm. ASSESSMENT: Diabetes, peripheral vascular disease, status post revascularization procedure. Clean granular wound to the left second toe, posterior and plantar heel and posterior ankle on the right. He has been evaluated for transfer to the half-way facility. He is currently receiving tigecycline and vancomycin. PLAN: We will continue with tigecycline and vancomycin. Continue Medihoney dressings to his wounds. Continue with offloading measures. Anticipate transfer to a half-way facility with continuation of local wound care, offloading measures and physical therapy support. TID: [id number] RECEIPT: [id number] [facility]
--- NOTE | 2024-07-14 16:45 | PN ---
[facility] PROGRESS NOTE Date of Service: Jul 14, 2024 Time of Service: 16:16 SUBJECTIVE: Mr. Patrick is a 59-year-old male that was seen and examined today on 07/03/2024. Patient is a good historian of personal health Patient states that he came to the emergency department with a chief complaint of chest pain. Onset was 07/02/2024 at 4:30 p.m.. Location is to left lower chest along the midclavicular line. Duration is on and off. Character is described as pressure. Symptoms are aggravated with, " walking around the bar. "Patient states he was at a local bar consuming alcohol prior to coming to the emergency department. There was no alleviating factors. Patient reports associated right foot pain. Today in the emergency department WBCs 12.2, left shift neutrophils 82.2%, glucose 184 mg/dL, high sensitivity troponin 183, BNP 249, urinalysis is unremarkable, urine toxicology is unremarkable, alcohol level is 25. Emergency room physician recommended that patient be admitted with a diagnosis of chest pain. Additionally patient presented with a heart rate of 112, combined with patient's WBCs of 12.2 and identified suspected source of infection being right lower extremity wounds patient met clinical sepsis criteria. 07/03/2024 The patient was examined at bedside. The patient states resolution of his chest pain completely. There is wound in his right lower extremity. His temperature is fluctuating and has slight fever. The patient appears very weak fatigued and tired. He was on prolonged courses of antibiotics for a longer duration. He is in mild distress due to pain from his foot. Coordinating care with the W[facility] events solutions consultant cardiology team and Infectious Disease team. He was recently hospitalized for prolonged period for his right lower extremity wound infection. Discuss the goal of care with the patient. Evaluating and ruling out all causes of his chest pain. 07/04/2024 10AM Patient is seen and examined at the bedside. He denies chest pain, fever, chills. He complains of right foot pain. Blood culture results are negative. He is on heparin drip in view of NSTEMI. Chest x-ray and CT PE resulted in no acute findings. Urinalysis positive for leukocyte esterase. Troponin trended up from 800-1243. Right wound aspirate gram stain resulted in gram negative rods and Gram-positive cocci in clusters Staph aureus. 07/05/24: Patient seen and examined in the morning denies any new complaints. Denies chest pain denies shortness of breath denies fever or chills. MRI shows no osteomyelitis only cellulitis changes. Blood culture is growing Gram-positive meghna in one of the bottle final sensitivity and identification is still pending. Cardiology has already seen the patient and recommended conservative management with heparin drip for48 hours aspirin Plavix and high- intensity statin. Heparin drip will be stopped today July 06, 2024 the patient was examined at bedside, he had a history of ischemic cardiomyopathy, peripheral artery disease, chronic right foot infection with previous osteomyelitis, recent bacteremia. He is currently admitted for management of myositis and cellulitis of the right foot, peripheral artery disease and evaluation of elevated troponin. The patient remains hemodynamically stable, denies new complaints and verbalizes understanding of t he treatment plan. No overnight events or complaints. No new chest pain, dyspnea, dizziness or palpitations. Heparin will be held in the a.m. aerobic active Bactrim baumannii culture positive. And blood cultures Gram- positive rods detected in 1-2 bottles pending speciation and sensitivities. And aerobic culture for Klebsiella oxytoca, Morganella morganii, staph aureus is positive. 07/07/24 patient was evaluated in the room this morning, he is very somnolent, he is on CIWA protocol taking Librium. He is in and out of consciousness. Apparently patient drinks four beers daily. Patient is scheduled for angio today with Dr. Muhammad 07/08/24 The patient underwent an abdominal angiogram with pelvic runoff followed by right lower extremity digital subtraction angiogram with drug coated balloon percutaneous transluminal angioplasty of the distal right superficial femoral artery. The intervention was successful significantly improving the 50% distal right SFA stenosis, which was reduced to 0% residual stenosis. The patient remains mildly drowsy but conversant, with no new complaints and no overnight events. Reports mild discomfort at the catheterization site and bilateral lower extremity discomfort. He understands the treatment plan and is awaiting transfer to a correction facility for IV antibiotic therapy for 6 weeks As per Infectious Disease suggestion. July 09, 2024 patient was examined at bedside today. No overnight events reported. The patient remains clinically stable and awaiting transfer to [facility] for [facility]-term IV antibiotic therapy. The patient prefers to be transferred to a [place] [facility] facility. 07/10/24 patient was examined at bedside today. No overnight events reported. The patient remains clinically stable and awaiting transfer to [facility] for long-term IV antibiotic therapy. The patient prefers to be transferred to a [facility] 07/11/24 patient was seen and examined. No overnight events noted. His right foot wound is getting better. Seen at with Dr. Villasenor who was providing wound care 07/12/24 patient was seen and examined. Case discussed with the RN he is , status post revascularization procedure, clean granular wound to the left second toe, right heel and right posterior ankle no clinical signs of infection. The patient is being evaluated for transfer to the [facility] 07/13/24 patient was seen and examined. He was up by the side of the bed and in no distress. We are waiting for authorization for transferred to the [facility] 07/14/2024 Patient is seen and examined at the bedside. Hemodynamically stable. He says that he feels well and has no other complaints. He is able to tolerate oral feeds without nausea/vomiting. Pending approval for [facility]. REVIEW OF SYSTEMS CONSTITUTIONAL: Denies fevers, chills, or night sweats. No unintentional weight loss reported. NEUROLOGICAL: Denies headache, amaurosis fugax, motor weakness, sensory deficit, vertigo/spinning sensation, gait abnormalities, or tremors. ENT: No hearing loss, otalgia, otorrhea, rhinitis, rhinorrhea, hoarseness, or sore throat. CARDIOVASCULAR: Denies any exertional angina, dyspnea on exertion, orthopnea, paroxysmal nocturnal dyspnea, palpitations, life-threatening arrhythmias, claudication. PULMONARY: Denies any shortness of breath, cough, phlegm/sputum, hemoptysis, pleuritic chest pain. SLEEP: Denies morning headaches, daytime somnolence or napping. Denies difficulty falling asleep, staying asleep, waking from sleep. Denies knowledge of snoring. GASTROINTESTINAL: Denies any type of dysphagia to either liquids or solids. Denies nausea, vomiting, pyrosis, early satiety, abdominal pain, diarrhea, constipation, or changes in stool consistency or caliber. Denies coffee-ground emesis, hematemesis, hematochezia, or melanotic stools. GENITOURINARY: Denies frequency, urgency, nocturia, hematuria or incontinence (Storage/Irritative symptoms.) Low urinary stream, straining to void, urinary intermittency or hesitancy, splitting of the voiding stream, terminal dribbling. ENDOCRINOLOGIC: Denies polyuria, polydipsia, polyphagia or heat/cold intolerances. HEMATOLOGIC: Denies thrombophilia/previous clots, or coagulopathy/bleeding disorders. ONCOLOGIC: Denies personal history of malignancy. DERMATOLOGIC: Denies rashes or pruritus. PSYCHIATRIC: Denies any suicidal or homicidal ideation. Denies hallucinations. PHYSICAL EXAM GENERAL APPEARANCE: The patient is awake, alert, and oriented, in no acute cardiopulmonary distress. NEUROLOGICAL: Cranial nerves II-XII grossly intact. Motor is 5/5 in bilateral upper and lower extremities proximal to distal. No sensory deficits. HEENT: Face is symmetric. Pupils are equal and reactive. Extraocular movements are intact. NECK: Supple. No JVD. No thyromegaly. No submental, submandibular, pre- /postauricular, occipital or supraclavicular lymphadenopathy. CHEST: Normal chest expansion. No Telemetry. LUNGS: Absence of any rales, rhonchi or any wheezing. CARDIOVASCULAR: Regular. S1 and S2 normal. No appreciable rubs, murmurs or gallops. ABDOMEN: Soft, nontender, and nondistended. There is no rebound, voluntary guarding, or rigidity. : Deferred. No Abrams. EXTREMITIES: Right foot ulcer to plantar, posterior and ankle, post Choparts amputation, clean granular wound SKIN: No skin breakdown. Vital Signs (last 8hr) Date Time Temp Pulse Resp B/P (MAP) Pulse Ox O2 Delivery O2 Flow Rate FiO2 07/14/24 12:00 97.9 69 19 142/76 Room Air LABS: Laboratory: Test 07/14/24 16:00 Range/Units Whole Blood Glucose 123 H 70-110 MG/DL Current Medications Medications (Trade) Dose Ordered Sig/Jl Route PRN Reason Start Time Stop Time Status Last Admin Dose Admin Acetaminophen (TYLenol 325MG TAB) 650 mg Q6H PRN PO TEMPERATURE GREATER THAN 101.5 07/03/24 03:00 08/02/24 02:59 07/14/24 09:45 650 MG Aspirin (Aspirin 81mg Ec Tab) 81 mg DAILY PO 07/04/24 09:00 08/03/24 08:59 3/4/25 09:04 81 MG Atorvastatin Calcium (LIPItor 40MG) 40 mg HS PO 07/03/24 21:00 07/05/24 15:02 DC 07/04/24 20:22 40 MG Atorvastatin Calcium (LIPItor 40MG) 80 mg HS PO 07/05/24 21:00 08/04/24 20:59 07/13/24 20:22 80 MG Chlordiazepoxide HCl (LIBrium 25 MG CAP) 25 mg Q8H PO 07/03/24 03:00 07/10/24 02:59 DC 07/09/24 18:11 25 MG Clopidogrel Bisulfate (plaVIX 75MG) 75 mg DAILY PO 07/04/24 09:00 08/03/24 08:59 07/14/24 09:05 75 MG Clopidogrel Bisulfate (plaVIX 75MG) 75 mg DAILY PO 07/10/24 09:00 07/09/24 22:47 DC Famotidine (Pepcid 20mg Tab) 20 mg DAILY PO 07/03/24 09:00 08/02/24 08:59 07/14/24 09:05 20 MG Heparin Sodium (Porcine) (HEParin 5,000 UNIT VIAL) *calculation based on ACTUAL B... AD PRN IV HEPARIN PROTOCOL 07/03/24 04:00 07/03/24 03:51 DC 07/03/24 03:41 6,000 UNIT Heparin Sodium/ Dextrose 250 ml @ 0 mls/hr Q6H IV 07/03/24 04:00 07/07/24 15:46 DC 07/06/24 21:28 10.34 MLS/HR Hydralazine HCl (APRESOLine 20MG INJ) 10 mg Q6H PRN IV For:SBP above 160;DBP above 90 07/03/24 03:00 08/02/24 02:59 Insulin Glargine (LANtus 100 UNITS/ML 10 ML VIAL) 15 units BID SQ 07/03/24 21:00 08/02/24 20:59 07/14/24 09:10 15 UNITS Leptospermum Honey (Medihoney) 1 APPL DAILY TP 07/03/24 14:00 08/02/24 13:59 07/14/24 09:05 1 APPL Lorazepam (AtiVAN) 1 mg Q4H PRN IVP ALCOHOL WITHDRAWAL PROTOCOL 07/03/24 03:00 07/10/24 02:59 DC Magnesium Sulfate 50 ml @ 0 mls/hr PROTOCOL PRN IV Electrolyte abnormality 07/03/24 12:00 08/02/24 11:59 07/08/24 11:06 25 MLS/HR Metoprolol Tartrate (loprESSOR) 25 mg BID PO 07/03/24 21:00 08/02/24 20:59 07/14/24 09:04 25 MG Miscellaneous Medication (Insulin Degludec (Tresiba Flextouch U-100)) 15 units ACBKFST SQ 07/04/24 07:30 07/03/24 14:11 DC Miscellaneous Medication ([Tramadol ] ) 50 mg BID PRN PO P610 07/03/24 14:00 07/03/24 14:09 DC Morphine Sulfate (morPHINE 2MG SYG) 2 mg Q4H PRN IVP SEVERE PAIN (7-10) 07/03/24 03:30 07/08/24 06:29 DC Nitroglycerin (Nitroglycerin 1gm Oint) 0.5 inch Q8H TD 07/03/24 03:00 08/02/24 02:59 07/14/24 11:59 0.5 INCH Ondansetron HCl (zoFRAN 4MG INJ) 4 mg Q6H PRN IV NAUSEA/VOMITING 07/03/24 03:00 08/02/24 02:59 Pharmacy Profile Note (Pharmacy Communication) 1 each ONCE MISC 07/07/24 13:00 07/07/24 12:55 DC Pharmacy Profile Note (Pharmacy Communication) 1 each PROTOCOL PRN MISC ETOH Withdrawal Score changes 07/03/24 03:00 07/10/24 02:59 DC Piperacillin Sod/ Tazobactam Sod (Zosyn 3.375gm+NS 50ml) 3.375 gm Q8H IV 07/03/24 01:30 07/03/24 03:03 DC 07/03/24 01:37 3.375 GM Piperacillin Sod/ Tazobactam Sod (Zosyn 3.375gm+NS 50ml) 3.375 gm Q8H IVPB 07/03/24 09:30 07/13/24 09:29 DC 07/13/24 01:32 3.375 GM Piperacillin Sod/ Tazobactam Sod (Zosyn 3.375gm+NS 50ml) 3.375 gm Q8H IVPB 07/13/24 12:30 07/23/24 12:29 07/14/24 11:59 3.375 GM Potassium Chloride 100 ml @ 50 mls/hr AD PRN IV POTASSIUM PROTOCOL 07/03/24 12:00 08/02/24 11:59 Potassium Chloride 100 ml @ 100 mls/hr AD PRN IV POTASSIUM PROTOCOL 07/04/24 13:00 07/04/24 12:43 DC Potassium Chloride (K-Dur/Klor-Con 20meq) 20 meq AD PRN PO POTASSIUM PROTOCOL 07/04/24 13:00 08/03/24 12:59 07/05/24 17:10 20 MEQ Potassium Chloride (KCl 10% Elixir 20meq/15ml) 20 meq AD PRN PO POTASSIUM PROTOCOL 07/04/24 13:00 08/03/24 12:59 07/07/24 15:38 20 MEQ Pregabalin ([id number]) 75 mg BID PO 07/03/24 21:00 08/02/24 20:59 07/14/24 09:04 75 MG Rivaroxaban (Xarelto) 2.5 mg BID PO 07/10/24 09:00 08/10/24 12:00 07/14/24 09:04 2.5 MG Sodium Chloride 1,000 ml @ 150 mls/hr Q6H40M IV 07/07/24 14:00 07/07/24 17:59 DC 07/07/24 15:15 150 MLS/HR Sodium Chloride (NS 50ml) 50 ml AD IV 07/03/24 03:00 07/03/24 11:34 DC Thiamine HCl (Vitamin B-1) 100 mg DAILY PO 07/05/24 09:00 08/04/24 08:59 07/14/24 09:04 100 MG Tigecycline 50 mg/ Sodium Chloride 100 ml @ 100 mls/hr Q12H IV 07/08/24 01:00 07/15/24 00:59 07/14/24 12:34 100 MLS/HR Vancomycin HCl (Vancomycin 1.25 Gm/250 ml Bag) 1.25 gm ONCE IV 07/03/24 11:30 07/03/24 11:33 DC DIAGNOSTICS / RADIOLOGY: [ ] ASSESSMENT: Chest pain, POA, resolved Non-STEMI, POA Elevated cardiac enzymes, POA Right foot stump ulcer with polymicrobial infection, Acinetobacter baumannii, Klebsiella oxytoca, Morganella morganii and Staphylococcus aureus Right lower extremity cellulitis POA, improving Peripheral artery disease, status post abdominal aortogram with pelvic runoff with successful intervention of the right SFA stenosis on 07/07/2024. Normocytic anemia, POA Sepsis, POA Alcohol dependence, POA Leukocytosis, POA, resolved Uncontrolled Diabetes mellitius type2, POA Hypertension Hyperlipidemia Right internal carotid artery stenosis History of CVA in April 2022 Grade 1 diastolic heart failure by 2D echo on 05/26/2023 with EF 40-45% PLAN: Peripheral artery disease / post peripheral angiogram and [employer]OR DUMPING: status post abdominal aortogram with pelvic runoff with successful intervention of the right SFA stenosis on 07/07/2024. Monitor for postprocedural complications. NSTEMI, POA continue aspirin 81 mg, clopidogrel 75 mg, atorvastatin 80 mg, metoprolol tartrate 25 mg b.i.d., Xarelto 2.5 mg b.i.d. Right foot stump ulcer with polymicrobial infection, Acinetobacter baumannii, Klebsiella oxytoca, Morganella morganii and Staphylococcus aureus, Right lower extremity cellulitis POA, Continue Wound Care Service with Medihoney dressings. Continue with Podiatry consult recommendations Continue Tygacil IV and Zosyn IV as per ID recommendations Sepsis, leukocytosis, resolving Continue Tygacil IV and Zosyn IV as per ID recommendations Monitor CBC, BMP Urinary tract infection, POA, contamination Reviewed patient's urinalysis which is mildly suggestive of UTI very few white blood cell count, mixed lópez contamination Normocytic anemia, POA Stable with hemoglobin between 10 and 11 Alcohol dependence: Counseled patient on alcohol cessation. As needed Ativan for alcohol withdrawal 1 mg every 4 hours Use CIWA-AR assessment tool Document EtOH withdrawal score Assess the need for seizure and aspiration precautions Continue thiamine preparation for the patient Diabetes mellitus type 2: HbA1c 6.8 Glucometer checks a.c. and HS 1800 ADA diet Humulin R sliding scale and Glargine Hypertension, hyperlipidemia, right internal carotid artery stenosis, grade 1 diastolic heart failure Monitor I&Os Daily weights Hydralazine 10 mg IV every 4 hours for systolic blood pressure greater than 160 mmHg, aspirin 81 mg daily, clopidogrel 75 mg daily, atorvastatin 80 mg HS. Continue GI prophylaxis, famotidine Discharge planning and transfer plan Patient is medically stable for transfer to SNF IV antibiotic therapy for 6 weeks per ID recommendation Awaiting approval for [facility] ATTESTATION BY PHYSICIAN I have seen and examined the patient. I reviewed the documentation, medical decision making, and treatment plan as noted by the resident above. I agree with the findings and plan of care. Camilo Rowland MD, PRIYANKA MD Jul 14, 2024 16:45
--- NOTE | 2024-07-14 22:56 | PN ---
INFECTIOUS DISEASE PROGRESS NOTE Date of Service: Jul 14, 2024 SUBJECTIVE: This is a 72-year-old male patient who was seen and examined at bedside in room 431. Patient is awake, alert and oriented x 3. Patient is s/p status post peripheral angiogram with successful intervention of the right SFA stenosis on 07/07/2024. No fever, temperature 97.9. Patient with episodes of confusion and is on a two-to-one sitter observation. Will continue on Tygacil and zosyn. Patient has been [facility] to [facility] and pending insurance authorization. We will continue to follow patient's care. PHYSICAL EXAM EYES: Anicteric. Pupils equal and reactive. HENT: No oral thrush seen, moist Oral mucosa. NECK: Supple, no JVD or thyromegaly. LUNGS: Good air entry. No rales, no rhonchi. CARDIOVASCULAR: S1, S2 regular. No murmur heard. ABDOMEN: Soft, non tender, bowel sounds present, no organomegaly. CENTRAL NERVOUS SYSTEM: Awake, alert, oriented x 3. SKIN: No rashes, no swelling. LYMPHATICS: No peripheral lymphadenopathy. MUSCULOSKELETAL: No joint swelling, erythema or tenderness. 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 Ulcer involving the posterior aspect of the right lower leg. Ulcer involving the right stump. BACK: No deformity, no pressure ulcer. GENITOURINARY: No dysuria or hematuria. Vital Sign (Last 12 Hours) 07/14/24 07/14/24 07/14/24 12:00 16:00 20:23 Temp 97.9 97.9 98.2 Pulse 69 72 67 Resp 19 18 18 B/P (MAP) 142/76 110/73 122/76 Pulse Ox 100 98 O2 Delivery Room Air Room Air Room Air FiO2 21 Intake & Output (last 24hrs) 07/13/24 07/13/24 07/14/24 15:00 23:00 07:00 Intake Total 875 ml Output Total 800 ml 600 ml Balance 75 ml -600 ml LABS: Laboratory: Test 07/14/24 19:22 Range/Units Whole Blood Glucose 134 H 70-110 MG/DL ASSESSMENT: Right foot stump ulcer with polymicrobial infection, Acinetobacter baumannii, Klebsiella oxytoca, Morganella morganii and Staphylococcus aureus. Right lower extremity cellulitis. Peripheral artery disease, status post abdominal aortogram with pelvic runoff with successful intervention of the right SFA stenosis on 07/07/2024. Possible angina pectoris. Elevated troponin. Diabetes mellitus. Obesity. PLAN: Continue Tygacil IV. Continue Zosyn IV. Continue GI prophylaxis. Continue antiplatelets. Continue wound care. Continue pain management. Continue thiamine. Continue monitoring glucose levels. Patient will need 6 weeks of IV antibiotics. Pending insurance authorization to [facility]. This case was reviewed and discussed with my supervising physician and the above assessment and plan was formulated and agreed upon. ATTESTATION BY PHYSICIAN I have seen and examined the patient. I reviewed the documentation, medical decision making, and treatment plan as noted by the mid-level provider above. I agree with the findings and plan of care. MÓNICA MOSQUEDA MD, MIRTA L [facility] Jul 14, 2024 22:56
[2024-07-15 04:16] VITALS: BP 107/73; PULSE 66; RESP 18; TEMP 97.7
[2024-07-15 05:54] LABS: BASOPHILS # (AUTO) 0.05 K/uL (0.00-0.20); BASOPHILS % (AUTO) 0.9 % (0.0-5.0); EOSINOPHILS # (AUTO) 0.12 K/uL (0.00-0.70); EOSINOPHILS % (AUTO) 2.2 % (0.0-8.0); HEMATOCRIT 34.4 % (42-54); IMMATURE GRANULOCYTE ABSOLUTE 0.02 K/uL (0-1); LYMPHOCYTES # (AUTO) 2.2 K/uL (1.0-4.8); LYMPHOCYTES % (AUTO) 40.7 % (21.0-51.0); MEAN CORPUSCULAR HEMOGLOBIN 31.1 pg (27.0-33.0); MEAN CORPUSCULAR VOLUME 91.5 fL (79-99); MONOCYTES # (AUTO) 0.5 K/uL (0.1-1.0); MONOCYTES % (AUTO) 8.2 % (3.0-13.0); NEUTROPHILS # (AUTO) 2.6 K/uL (1.8-7.7); NEUTROPHILS % (AUTO) 47.6 % (40.0-77.0); PLATELET COUNT (AUTO) 280 K/uL (130-400); RED BLOOD CELL COUNT(AUTO) 3.76 MIL/uL (4.50-6.20); RED CELL DISTRIBUTION WIDTH 13.2 % (11.0-15.5); WHITE BLOOD COUNT (AUTO) 5.5 K/uL (4.8-10.8)
[2024-07-15 06:20] LABS: CREATININE 1.3 mg/dL (0.5-1.3); MAGNESIUM 2.1 mg/dL (1.80-2.40); POTASSIUM 4.3 mmol/L (3.5-5.1)
--- NOTE | 2024-07-15 06:46 | PN ---
SUBJECTIVE: The patient is a very pleasant 59-year-old diabetic, Latin-[place]oc[place] male who is pending transfer to [facility], remaining afebrile. White count is 5.5. Currently receiving IV Zosyn. His tigecycline has been discontinued. He is receiving Medihoney dressings daily to his foot and ankle wounds. White count 5.5, H and H 11.7 and 34.4, platelets 280. Glucose 87. The patient is being followed by Infectious Disease. He is status post successful peripheral angiography with successful intervention of his right SFA. The patient had an MRI on the right, negative for osteomyelitis. SOCIAL HISTORY: He drinks 12 beers a day. REVIEW OF SYSTEMS: CONSTITUTIONAL: No constitutional symptoms. HEENT: No problems with eyes, ears, nose or throat. CARDIOVASCULAR: Status post successful revascularization procedure, superficial femoral artery on the right side, found to have runoff via the posterior tibial artery to the right foot to have occlusion of the anterior tibial artery and the peroneal artery on that right side. PSYCHIATRIC: Denied any depression, history of alcohol abuse. GENITOURINARY: BUN 17, creatinine 1.3. 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 INTEGUMENT: He has an ulcer to the second toe 6 x 6 x 1 mm on the left. He has an ulcer to plantar aspect of the right heel 12 x 12 x 1 mm. He has an ulcer to the posterior aspect of the right ankle 8 cm x 2.5 cm x 1 mm. 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 He has an ulcer to the tip of the left second toe that is 6 x 6 x 1 mm. He has an ulcer to the right heel 12 x 12 x 1 mm. He has an ulcer to the right ankle that is 8 cm x 2.5 cm x 1 mm. ASSESSMENT: Diabetes, peripheral vascular disease, status post revascularization procedure. A clean granular wound to the left second toe, ulcers to the posterior and plantar aspect of the heel and ulcer to the posterior ankle on the right. He has been evaluated for transfer to a half-way facility. He is currently receiving Zosyn. His tigecycline has been discontinued. PLAN: We will continue with IV Zosyn. Continue with Medihoney dressings. Continue with offloading measures. Anticipate transfer to a half-way facility. TID: [id number] RECEIPT: [id number]
[2024-07-15 07:10] VITALS: BP 118/72; PULSE 67; RESP 18; TEMP 97.6
[2024-07-15 08:00] VITALS: O2SAT 99
[2024-07-15] MEDS: 0.9%NACL 1000ML 1,000 ML IV SCH (09:28)
[2024-07-15 11:05] VITALS: BP 133/83; PULSE 69; RESP 18; TEMP 97.8
[2024-07-15] MEDS ORDERED: PHARMACY COMMUNICATION MISC SCH (12:00)
[2024-07-15] MEDS: TIGECYCLINE 50 MG in 0.9%NACL 100ML 100 ML IV SCH (12:46)
--- NOTE | 2024-07-15 13:09 | PN ---
INFECTIOUS DISEASE PROGRESS NOTE Date of Service: Jul 15, 2024 SUBJECTIVE: This is a 72-year-old male patient who was seen and examined at bedside in room 431. Patient is awake, alert and oriented x 3. Patient is s/p status post peripheral angiogram with successful intervention of the right SFA stenosis on 07/07/2024. Patient is answering questions appropriately and is no longer on sitter observation. Patient is afebrile, temperature is 97.9 and a WBC of 5.5. Will continue on Tygacil and zosyn. Patient has been approved to [facility]. No other issues reported by nursing. PHYSICAL EXAM EYES: Anicteric. Pupils equal and reactive. HENT: No oral thrush seen, moist Oral mucosa. NECK: Supple, no JVD or thyromegaly. LUNGS: Good air entry. No rales, no rhonchi. CARDIOVASCULAR: S1, S2 regular. No murmur heard. ABDOMEN: Soft, non tender, bowel sounds present, no organomegaly. CENTRAL NERVOUS SYSTEM: Awake, alert, oriented x 3. SKIN: No rashes, no swelling. LYMPHATICS: No peripheral lymphadenopathy. MUSCULOSKELETAL: No joint swelling, erythema or tenderness. 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 Ulcer involving the posterior aspect of the right lower leg. Ulcer involving the right stump. BACK: No deformity, no pressure ulcer. GENITOURINARY: No dysuria or hematuria. Vital Sign (Last 12 Hours) 07/15/24 07/15/24 07/15/24 07/15/24 04:16 07:10 08:00 11:05 Temp 97.7 97.5 97.9 Pulse 66 67 69 Resp 18 18 18 B/P (MAP) 107/73 118/72 133/83 Pulse Ox 97 99 99 100 O2 Delivery Room Air Room Air Room Air* Room Air O2 Flow Rate 0 FiO2 21 21 21 21 Intake & Output (last 24hrs) 07/14/24 07/14/24 07/15/24 14:59 22:59 06:59 Intake Total 2500 ml Output Total 1000 ml 300 ml Balance 1500 ml -300 ml LABS: Laboratory: Test 07/15/24 11:05 07/15/24 05:38 Range/Units Whole Blood Glucose 104 70-110 MG/DL White Blood Count 5.5 4.8-10.8 K/uL Red Blood Count 3.76 L 4.50-6.20 MIL/uL Hemoglobin 11.7 L 14.0-18.0 g/dL Hematocrit 34.4 L 42-54 % Mean Corpuscular Volume 91.5 79-99 fL Mean Corpuscular Hemoglobin 31.1 27.0-33.0 pg Mean Corpuscular Hemoglobin Concent 34.0 32.0-36.0 g/dL Red Cell Distribution Width 13.2 11.0-15.5 % Platelet Count 280 130-400 K/uL Mean Platelet Volume 10.5 7.5-10.5 fL Immature Granulocyte % (Auto) 0.4 0-1 % Neutrophils (%) (Auto) 47.6 40.0-77.0 % Lymphocytes (%) (Auto) 40.7 21.0-51.0 % Monocytes (%) (Auto) 8.2 3.0-13.0 % Eosinophils (%) (Auto) 2.2 0.0-8.0 % Basophils (%) (Auto) 0.9 0.0-5.0 % Neutrophils # (Auto) 2.6 1.8-7.7 K/uL Lymphocytes # (Auto) 2.2 1.0-4.8 K/uL Monocytes # (Auto) 0.5 0.1-1.0 K/uL Eosinophils # (Auto) 0.12 0.00-0.70 K/uL Basophils # (Auto) 0.05 0.00-0.20 K/uL Absolute Immature Granulocyte (auto 0.02 0-1 K/uL Nucleated Red Blood Cells 0.0 0.0-0.19 % Sodium Level 139 136-145 mmol/L Potassium Level 4.3 3.5-5.1 mmol/L Chloride Level 106 101-111 mmol/L Carbon Dioxide Level 25 21-32 mmol/L Blood Urea Nitrogen 32 H 7-18 mg/dL Creatinine 1.3 0.5-1.3 mg/dL Glomerular Filtration Rate Calc 64 >90 mL/min Random Glucose 82 70-105 mg/dL Total Calcium 8.9 8.5-10.1 mg/dL Magnesium Level 2.10 1.80-2.40 mg/dL ASSESSMENT: Right foot stump ulcer with polymicrobial infection, Acinetobacter baumannii, Klebsiella oxytoca, Morganella morganii and Staphylococcus aureus. Right lower extremity cellulitis. Peripheral artery disease, status post abdominal aortogram with pelvic runoff with successful intervention of the right SFA stenosis on 07/07/2024. Possible angina pectoris. Elevated troponin. Diabetes mellitus. Obesity. PLAN: Continue Tygacil IV. Continue Zosyn IV. Continue GI prophylaxis. Continue antiplatelets. Continue wound care. Continue pain management. Continue thiamine. Continue monitoring glucose levels. Patient will need 6 weeks of IV antibiotics. Patient has been approved to [facility]. This case was reviewed and discussed with my supervising physician and the above assessment and plan was formulated and agreed upon. ATTESTATION BY PHYSICIAN I have seen and examined the patient. I reviewed the documentation, medical decision making, and treatment plan as noted by the mid-level provider above. I agree with the findings and plan of care. MÓNICA MOSQUEDA MD, [facility] Jul 15, 2024 13:09
[2024-07-15 15:10] VITALS: BP 162/81; PULSE 74; RESP 18; TEMP 97.6
--- NOTE | 2024-07-15 15:29 | NUR ---
Nutrition consult per LOS >7 Reviewed labs, notes, and medications. To be d/c from [facility], with one-on-one sitter, remains confused, drinks 12 beers per day, on HH, IV fluid, b-complex, IV abx, elevated BUN 32, Cr WNL, phos 2.4 (L), elevated CRP, A1C 6.8 per chart review. 75 %PO intake, wt via bed scale, last BM 07/15/24, missing teeth, right ankle ulcer, well nourished, no edema, -525 ml balance 07/14/24 per nursing. consider ordering vit. B-1 labs per Pt remaining confused. Recommendations: -Provide HH+ 75 gm cho -Monitor PO intake -Encourage PO intake as able -Monitor BM -If no BM >3 days consider stool softener -Monitor electrolytes -Replenish electrolytes per protocol -Monitor wts -Reweigh as able -Order Vit D, vit b-12 labs to rule out deficiencies -Provide b-complex per EtoH -Order B-6 labs per Pt hx of EtoH -Recommend Pt to follow up with PCP -Monitor goals of care RD to follow + available for consult per protocol Addendum: 07/15/24 at [address] Amended: Links added.
[2024-07-15] MEDS ORDERED: ATOR40TA69 PO (15:36)
[2024-07-15] MEDS ORDERED: RIVA2.5T PO (15:41)
--- NOTE | 2024-07-15 15:47 | DS ---
Discharge Summary Hospital Course Summary: Mr. Patrick, a 59-year-old male with the past medical history of ischemic cardiomyopathy, peripheral artery disease, chronic right foot infection with previous osteomyelitis, recent bacteremia who presented to the ER with the chief complaints of intermittent midclavicular pressure like chest pain on 07/02/2024 at 4:30 p.m which worsened while walking in the bar. He also reported pain in his right foot pain due to a diabetic ulcer on the plantar aspect of his right heel and the posterior aspect of his right ankle. He was recently hospitalized for an extended period due to a right lower extremity wound infection. On presentation , Initial labs WBCs 12.2, high sensitivity troponin 183, BNP 249. He was admitted for further evaluation and treatment in view of Sepsis. Wound care, cardiology and Infectious Disease consult were obtained. Patient was started on fluids, blood cultures were drawn, and empiric antibiotics were initiated. Chest x-ray and CT PE resulted in no acute findings. MRI of rt LE showed no osteomyelitis and only cellulitis changes. Troponin trended up from 883, 817, 893, 1243, 1142 and was intially started on heparin drip for NSTEMI, later transitioning to Aspirin 81mg, Clopidogrel 75mg, Metoprolol tartarate 25mg BID, Atorvastain 80mg PO as per cardiology recommendation. He subsequently underwent an abdominal angiogram with pelvic runoff followed by right lower extremity digital subtraction angiogram with drug coated balloon percutaneous transluminal angioplasty of the distal right superficial femoral artery, improving the 50% distal right SFA stenosis, to 0% residual stenosis. Rt wound cultures revealed Acinetobacter baumannii, Klebsiella oxytoca, Morganella morganii and Staphylococcus aureus. Blood cultures were negative. He received daily Medihoney dressings and offloading measures per podiatric consult recommendations. His symptoms have improved over the course of hospital stay. ID consult recommended 6 weeks of IV antibiotics Zosyn and Tigecycline.. Today the patient was seen and examined at the bedside. He states that he feels well and has no other complaints. Labs hemoglobin 11.7, BUN 32. Patient is given 1 L of NS. He is able to tolerate diet without any symptoms/issues.He has been accepted to a nursing home facility, [facility] in [place] and arrangements have been made accordingly. A prescription for IV antibiotics Zosyn, Tigecycline for 6 weeks was provided by ID consult. Patient new medications Xarelto 2.5 mg b.i.d., atorvastatin 80 mg p.o. daily were prescribed as per cardiology consult recommendation, and home medications were continued. He was advised to follow up with PCP for further management and medication refills, with wound care consult Dr. Hua, cardiology consult Dr. Muhammad, ID consult. Patient acknowledges understanding of his diagnosis, treatment plan , discharge instructions and follow up care. Office Services Representative(s): Infectious disease consult Podiatric consult Dr. Villasenor Cardiology consult: Wound care consult: Procedure(s): PROCEDURE: [id number] - ANKLE COMP 3VWS RT RIGHT ANKLE RADIOGRAPHS - 2 VIEWS INDICATION: Osteomyelitis evaluation COMPARISON: None FINDINGS: AP, lateral views. No acute fracture or subluxation identified. Right foot amputation changes bearing the hindfoot. No evidence for periosteal reaction, cortical erosive changes, or any abnormal subperiosteal bone resorption. The talar dome is intact. Ankle mortise and tibial plafond are well maintained. Extensive arterial wall calcific plaque. No significant joint effusion is present. Subcentimeter plantar calcaneal spur. IMPRESSION: No evidence for osteomyelitis. PROCEDURE: ART U LE - US ARTERIAL UNILA LOW EXT DUPL US ARTERIAL UNILA LOW EXT DUPL HISTORY: Peripheral vascular disease with prior right foot amputation. COMPARISON: None TECHNIQUE: Right lower extremity arterial Doppler ultrasound study was performed. FINDINGS: There is triphasic waveforms to the distal superficial femoral artery with monophasic waveforms in the popliteal artery and posterior tibial artery. On the right, the peak systolic velocity of the common femoral artery is 113 cm/s, the proximal femoral artery is 87 cm/s, the mid femoral artery is 107 cm/s, the distal femoral artery is 88 cm/s, the popliteal artery is 88 cm/s, the posterior tibial artery artery is 38 cm/s. IMPRESSION: Patent outflow to the level of the distal superficial femoral artery with likely mild to moderately diseased popliteal and posterior tibial artery runoff. PROCEDURE: FT RT WWO - MR FOOT RIGHT WWO MR FOOT RIGHT WWO HISTORY: right stump wound COMPARISON: 04/15/2024 TECHNIQUE: MRI of the right foot was performed utilizing multiple pulse sequences in axial, coronal and sagittal planes. Patient given 19 mL of IV contrast through intravenous route. FINDINGS: Marilee signal intensity is seen of the visualized bony structure. No appreciable amount of joint effusion is seen. There is no identified deep soft tissue fluid collections suggest an abscess. No rupture or Achilles tendon is seen. The flexor and extensor tendons appear intact. There is increased signal demonstrated within the musculature and T2-weighted images and increased signal in the subcutaneous fat. There is change from prior forefoot and midfoot amputation. IMPRESSION: 1. Findings most suggestive of myositis cellulitis with no identified osteomyelitis PROCEDURE: CHES PE - CT CHEST PE PROTOCOL WWO CONT CT CHEST PE PROTOCOL WWO CONT HISTORY: Chest pain COMPARISON: None TECHNIQUE: CT angiography of the chest was performed. The study was performed using angiographic technique with maximum intensity projection reconstruction images. Patient was given 75 cc of Omnipaque through intravenous route. FINDINGS: No CT evidence of filling defect is seen to suggest pulmonary embolus. Coronary arterial calcifications are seen. No evidence of parenchymal disease is seen. No CT evidence of pleural effusion or pericardial effusion is seen. The heart is enlarged. No evidence of adrenal mass is seen. Fatty changes of the liver are noted. Degenerative changes of the spine are noted. IMPRESSION: 1. No CT evidence of acute pulmonary embolus is seen. PROCEDURE: CXR1VW - CHEST 1VW CHEST 1VW REASON: Chest pain COMPARISON: 04/21/2024 FINDINGS: Single view of the chest was obtained. Lungs are clear. Heart size is normal. There is no pulmonary vascular congestion. Mediastinum and bony thorax appear unremarkable. IMPRESSION: 1. Normal single view chest x-ray. Assessment/Plan: ASSESSMENT: Sepsis, POA Chest pain, POA, resolved Non-STEMI, POA Elevated cardiac enzymes, POA Right foot stump ulcer with polymicrobial infection, Acinetobacter baumannii, Klebsiella oxytoca, Morganella morganii and Staphylococcus aureus, POA Right lower extremity cellulitis POA, improving Peripheral artery disease, POA status post abdominal aortogram with pelvic runoff with successful intervention of the right SFA stenosis on 07/07/2024. Normocytic anemia, POA Alcohol dependence, POA Leukocytosis, POA, resolved Uncontrolled Diabetes mellitus type2, POA Hypertension Hyperlipidemia Right internal carotid artery stenosis History of CVA in April 2022 Grade 1 diastolic heart failure by 2D echo on 05/26/2023 with EF 40-45% PLAN ADMISSION DATE : 07/03/2024 DISCHARGE DATE : 07/15/2024 DISPOSITION : [facility] facility, [facility] CONDITION : Stable Office Services Representative(s) : Infectious disease consult , Podiatric consult Dr. Villasenor, Cardiology consult: , Wound care consult: FOLLOW UP APPOINTMENTS : Follow up with PCP within 1 week, follow up with ID consult Dr. Rm, podiatry consult Dr. Villasenor, cardiology consult Dr. Muhammad, wound care consult Dr. Hau PROCEDURES : abdominal aortogram with pelvic runoff with successful intervention of the right SFA stenosis on 07/07/2024. IMAGING (s) : Chest x-ray, CT chest, right foot MRI, right lower extremity ultrasound, right ankle x-ray MICROBIOLOGY : Aerobic and anaerobic cultures of the right lower extremity ulcers resulted in Acinetobacter baumannii, Klebsiella oxytoca, Morganella morganii and Staphylococcus aureus ACTIVITY : as directed by PT MEDICATIONS : A prescription for IV antibiotics Zosyn, Tigecycline for 6 weeks is given to the patient by ID consult. Patient is prescribed new medications Xarelto 2.5 mg b.i.d., atorvastatin 80 mg p.o. daily as per cardiology consult recommendation, and home medications aspirin 81 mg, clopidogrel 75 mg p.o., pregabalin, metformin 1000mg BID, metoprolol tartrate 25 mg b.i.d. p.o, Tresiba 15 units before breakfast daily are continued. TEACHING : The patient was instructed to present to the nearest Emergency Department or call 911 should their symptoms return or worsen. Home Medications: Active Scripts Rivaroxaban (Xarelto) 2.5 Mg Tablet, 2.5 MG PO BID for 30 Days, #60 TAB Prov:IAN DEY MD 07/15/24 Atorvastatin Calcium (LIPITOR) 40 Mg Tablet, 80 MG PO HS for 30 Days, #60 TAB Prov:IAN DEY MD 07/15/24 Metformin HCl (Metformin HCl) 1,000 Mg Tablet, 1000 MG PO BID, #60 TAB HALF A TABLET TWICE A DAY WITH MEALS Prov:DILLON MARTINEZ NP 04/08/24 Aspirin (ASPIRIN 81 MG ECTAB) 81 Mg Ectab, 81 MG PO DAILY for 30 Days, #30 TAB.EC 2 Refills Prov:JANNET BLAKELY MD 05/30/23 Reported Medications Clopidogrel Bisulfate (Clopidogrel) 75 Mg Tablet, 1 TAB PO DAILY for 30 Days, #30 TAB 0 Refills 07/03/24 Pregabalin (Pregabalin) 75 Mg Capsule, 1 CAP PO BID MDD 2 Capsule(s) for 30 Days, #60 CAP 0 Refills 07/03/24 Metoprolol Tartrate (Metoprolol Tartrate) 25 Mg Tablet, 1 TAB PO BID for 30 Days, #60 TAB 0 Refills 07/03/24 Insulin Degludec (Tresiba Flextouch U-100) 100 Unit/Ml (3 Ml) Insuln.pen, 15 UNITS SQ ACBKFST 05/25/23 Omeprazole (Omeprazole) 40 Mg Capsule.dr, 1 CAP PO DAILY 04/02/23 Discontinued Reported Medications Insulin Glargine-Yfgn (Insulin Glargine-Yfgn) 100 Unit/Ml Vial, 15 UNIT SQ BID, VIAL 07/03/24 Insulin Lispro (Humalog) 100 Unit/Ml Cartridge, 5 UNITS SQ TID, CARTRIDGE 07/03/24 [Tramadol ] No Conflict Check, 50 MG PO BID PRN for PAIN LEVEL 6 TO 10 07/03/24 Atorvastatin Calcium (Atorvastatin Calcium) 40 Mg Tablet, 1 TAB PO HS for 30 Days, #30 TAB 0 Refills 07/03/24 Glimepiride (Glimepiride) 4 Mg Tablet, 1 TAB PO DAILY 05/25/23 Metaxalone (Metaxalone) 400 Mg Tablet, 1 TAB PO DAILY 05/25/23 Sulfamethoxazole/Trimethoprim (Sulfamethoxazole-Tmp Ss Tablet) 400 Mg-80 Mg Tablet, 2 TAB PO BID 05/25/23 Metformin HCl (Metformin HCl) 500 Mg Tablet, 1 TAB PO BID 04/02/23 Discontinued Scripts Metoprolol Tartrate (Lopressor) 25 Mg Tab, 12.5 MG PO BID for 30 Days, #60 TAB 2 Refills Prov:JANNET BLAKELY MD 05/30/23 Atorvastatin Calcium (LIPITOR) 40 Mg Tablet, 40 MG PO HS for 30 Days, #30 TAB 2 Refills Prov:JANNET BLAKELY MD 05/30/23 Time spent arranging discharge: 1-30 minutes ATTESTATION BY PHYSICIAN I have seen and examined the patient. I reviewed the documentation, medical decision making, and treatment plan as noted by the resident above. I agree with the findings and plan of care. BhCamilo reyes MD, PRIYANKA MD Jul 15, 2024 15:47
== END 2024-07-15 18:58 | DRG 853 ==
LOC: EDH 23:35 → EDHIP 07-03 02:42 → 4AH 07-03 23:12
PROVIDERS: ADMIT Internal Medicine; ATTEND Internal Medicine
PROC: 047K3Z1 Dilation of Right Femoral Artery using Drug-Coated Balloon, Percutaneous Approach (ICD-10-PCS; principal; 2024-07-07)
PROC: B41F1ZZ Fluoroscopy of Right Lower Extremity Arteries using Low Osmolar Contrast (ICD-10-PCS; 2024-07-07)
PROC: B4101ZZ Fluoroscopy of Abdominal Aorta using Low Osmolar Contrast (ICD-10-PCS; 2024-07-07)
PROC: 02HV33Z Insertion of Infusion Device into Superior Vena Cava, Percutaneous Approach (ICD-10-PCS; 2024-07-07)
DX: A41.9 Sepsis, unspecified organism (principal); I21.4 Non-ST elevation (NSTEMI) myocardial infarction; F10.239 Alcohol dependence with withdrawal, unspecified; I50.32 Chronic diastolic (congestive) heart failure; L03.115 Cellulitis of right lower limb; Z16.24 Resistance to multiple antibiotics; D64.9 Anemia, unspecified; E11.51 Type 2 diabetes mellitus with diabetic peripheral angiopathy without gangrene; E11.621 Type 2 diabetes mellitus with foot ulcer; E11.65 Type 2 diabetes mellitus with hyperglycemia; E66.9 Obesity, unspecified; E78.5 Hyperlipidemia, unspecified; I11.0 Hypertensive heart disease with heart failure; I65.21 Occlusion and stenosis of right carotid artery; I70.201 Unspecified atherosclerosis of native arteries of extremities, right leg; E86.0 Dehydration; M60.9 Myositis, unspecified; L97.529 Non-pressure chronic ulcer of other part of left foot with unspecified severity; I25.10 Atherosclerotic heart disease of native coronary artery without angina pectoris; L97.519 Non-pressure chronic ulcer of other part of right foot with unspecified severity; Z72.0 Tobacco use; Z95.5 Presence of coronary angioplasty implant and graft; Z79.4 Long term (current) use of insulin; Z79.82 Long term (current) use of aspirin; Z80.0 Family history of malignant neoplasm of digestive organs; Z82.0 Family history of epilepsy and other diseases of the nervous system; Z82.3 Family history of stroke; Z83.3 Family history of diabetes mellitus; Z86.73 Personal history of transient ischemic attack (TIA), and cerebral infarction without residual deficits; Z93.3 Colostomy status; Z89.431 Acquired absence of right foot; Z68.21 Body mass index [BMI] 21.0-21.9, adult; Z82.49 Family history of ischemic heart disease and other diseases of the circulatory system; Z82.5 Family history of asthma and other chronic lower respiratory diseases; Z79.899 Other long term (current) drug therapy
CPT/HCPCS: 36415; 36600; 37224; 71045; 71270; 73610; 73720; 75625; 75710; 75716; 80048; 80053; 80305; 81001; 82306; 82607; 82803; 82948; 83036; 83605; 83735; 83880; 84100; 84145; 84425; 84484; 85025; 85610; 85651; 85730; 86140; 87040; 87070; 87076; 87086; 87186; 93005; 93926; 99156; 99157; 99291; A6248; C1760; C1893; C1894; G0378; J1644; J2250; J2543; J3010; J3243; J3475; J3490; J7030; J7070; Q9967; A6260; A9575; C1769; C2623